=== PATIENT | female | born 1960 | race Caucasian/White ===

== ENCOUNTER 2019-05-24 10:45 | Outpatient (CLI) | payer OTHER, SELFPAY | END 2019-05-24 10:46 | disposition home or self-care (01) | LOC: ANHAUDIO 10:49 | PROVIDERS: PCP Family Medicine; Referring Provider Otolaryngology; Visit Provider Otolaryngology | DX: H90.3 Sensorineural hearing loss, bilateral (principal) | CPT/HCPCS: 92557; 92567 ==

== ENCOUNTER 2020-04-05 10:00 | Outpatient (RCR) | payer MEDICARE, MEDICAID, SELFPAY ==
--- NOTE | 2020-03-06 14:55 | PTOPEVAL ---
PHYSICAL THERAPY EVALUATION Thank you for referring Flor Gallego to [facility].? Flor was evaluated for the dx of low back pain with radiculopathy. The patient is scheduled to be seen for therapy? 2x/week for 4 weeks. Please review, sign, date and return this plan of care GIDEON. I agree with and certify that the following plan of care is medically necessary. Referring Physician Date Attending Provider: Malathi Perez, Referring Provider: Malathi Perez, *PT Outpatient Evaluation Start: 03/06/20 13:39 Freq: Status: Active Protocol: Document 03/06/20 13:40 MLV (Rec: 03/06/20 14:39 MLV [id number]) Therapy Assessment Status Assessment Status Evaluation Evaluation Information Problem Diagnosis low back pain with radiculopathy Onset 01/31/20 Cause fell on concrete steps Additional Evaluation Detail The patient reports falling which caused increased hip pain and new back pain. The patient is not sleeping more than 3 hours a night and having great difficulty into/ out of bed. The patient has increased pain with walking, standing, bending over, sitting for longer period. Prior to fall, patient had occasions of back pain but none recently. The patient is on disability and is sedentary . Subjective Information The patient has used heat for Query Text:As Reported By Patient/ relief, ice causes increased Family pain. Diagnostic Tests X-Rays For This Problem Yes: no fx's MRI For This Problem Yes: DDD,DJD spine Prior Level of Function Home Setting Home Type House,Single Level Environmental Barriers Ramp Living Situation Alone Support Available Local Family Support,Neighbor/ Friend Support [employer] Responsibilities Comment friends and family help with cooking, shopping, foot care/ dressing from knees down. Mobility Assistive Devices (Used Last 3 Lift, Chair,Walker, Rollator Months) Pain Assessment Timing of Pain Assessment Timing of Pain Assessment Assessment Pain Scale Pain Scale Used Numeric (1 - 10) Self Report Pain Assessment Bilateral Hip(s) Reported Pain Level 5 Pain Description Pinching,Pressur
--- NOTE | 2020-03-15 11:51 | PCPTNOTE ---
Patient called & cancelled scheduled appointment this date due to severe swelling at both of her legs.
--- NOTE | 2020-03-28 09:15 | PCPTNOTE ---
Patient called & cancelled scheduled appointment this date due to she had a colonoscopy done yesterday and doesn't feel up to therapy today.
--- NOTE | 2020-04-05 11:18 | PTOPEVAL ---
PHYSICAL THERAPY DISCHARGE SUMMARY Thank you for referring Flor Gallego to [facility].? The patient has been seen for therapy?dx of low back pain 7 visits and has peaked with skilled therapy needs. Physical therapy is discharged at this time. Please review, sign, date and return this plan of care GIDEON. I agree with and certify the following plan of care. Referring Physician Date Attending Provider: Malathi Perez, MD Referring Provider: Malathi Perez, MD *PT Outpatient Discharge Start: 03/06/20 13:39 Freq: Status: discharged Protocol: Document 04/05/20 10:05 MLV (Rec: 04/05/20 10:59 [facility] [id number]) Assessment Status Discharge Evaluation Information Problem Additional Evaluation Detail The patient reports not feeling much better than at eval despite doing her exercises and using heat/ice at home. The patient reports more pain today and feels it is just one of those days . No event has occurred to correlate with today's pain level. Subjective Information Note: the patient's pain level Query Text:As Reported By Patient/ fluctuated throughout all of Family therapy sessions Pain Assessment Timing of Pain Assessment Timing of Pain Assessment Pre-Treatment Pain Scale Pain Scale Used Numeric (1 - 10) Self Report Pain Assessment Bilateral Hip(s) Reported Pain Level 8 Pain Description Throbbing Pain Frequency Chronic Pain Aggravating Factors Walking,Weight Bearing/ Standing Pain Behaviors Guarding,Limping Lower Back Reported Pain Level 5 Pain Frequency Chronic Pain Score Pain Score 8,5: Self Report Interventions Used Interventions Used By Clinicians Electrical Stimulation, Exercise,Heat Pain Relief Interventions Used By Heat,Inactivity/Rest, Patient Medication Cervical and Lumbar ROM Lumbar ROM Reason Not Measured WFL/Left,WFL/Right Lumbar Comments pain on right flank with sidebend to the left; discomfort continues with trunk extension with 50% motion Cervical and Lumbar Muscle Testing Lumbar Strength Upper Abdominal Strength 2+Poor+ Lower Abdominal Strength 2+Poor+ Upper Back Extension 4-Good- Lower Back Extension 4-Good- Muscle Length Testing Muscle Length Te
== END 2020-04-05 13:36 | disposition home or self-care (01) ==
LOC: ANHPT 10:00
PROVIDERS: PCP Family Medicine; Referring Provider Family Medicine; Visit Provider Family Medicine
DX: M54.16 Radiculopathy, lumbar region (principal)
CPT/HCPCS: 97014; 97110; G0283

== ENCOUNTER 2020-05-31 12:56 | Outpatient (CLI) | payer MEDICARE, MEDICAID, SELFPAY ==
--- NOTE | ~2020-05-31 | US_ITS ---
EXAMINATION: US venous doppler LE BI EXAM DATE: 05/31/2020 14:10 INDICATION: R60.0 - Localized edema edema. TECHNIQUE: Multiple grayscale, color flow and Doppler images of the lower extremity venous systems bi laterally were obtained and reviewed. Saphenous venous mapping. The exam was reviewed on 05/31/2020. There is no prior study for comparison. FINDINGS: Study limited from patient's body habitus. Right side: The right common femoral, proximal femoral and profunda veins demonstrate normal color fl ow, respiratory variation, augmentation and compressibility. Compressibility, color flow confirmed w ithin the right popliteal, posterior tibial, peroneal, and greater saphenous veins. Right Standing Venous Mapping: reflux seconds duration; vein size. Greater saphenous origin: 0 seconds; 8.4 mm. Greater saphenous mid thigh:------ 0 seconds; 7.0 mm. Greater saphenous below knee:--- 0 seconds; 2.8 mm. Lesser saphenous proximally:------ 0 seconds; 3.6 mm. Lesser saphenous distally: 0 seconds; 3.3 mm. Left side: The left common femoral, proximal femoral and profunda veins demonstrate normal color flow , respiratory variation, augmentation and compressibility. Compressibility, color flow confirmed wit hin the left popliteal, posterior tibial, peroneal, and greater saphenous veins. Left Standing Venous Mapping: reflux seconds duration; vein size. Greater saphenous origin: 0 seconds; 6.6 mm. Greater saphenous mid thigh:------ 0 seconds; 4.2 mm. Greater saphenous below knee:--- 0 seconds; 2.5 mm. Lesser saphenous proximally:------ 0 seconds; 3.9 mm. Lesser saphenous distally: 0 seconds; 1.8 mm. IMPRESSION: 1. No lower extremity DVT or reflux bilaterally. 2. Mapping as above. Reviewed, dictated and finalized at location [facility]. [employer]
== END 2020-05-31 12:57 | disposition home or self-care (01) ==
LOC: ANHIMG 12:57
PROVIDERS: PCP Family Medicine; Visit Provider Orthopaedic Surgery
DX: R60.0 Localized edema (principal)
CPT/HCPCS: 93970

== ENCOUNTER 2020-06-15 09:30 | Outpatient (RCR) | payer MEDICARE, MEDICAID, SELFPAY ==
[2020-06-09 14:04] VITALS: BP_SYST 120
--- NOTE | 2020-06-09 15:47 | PTOPEVAL ---
Thank you for referring Flor Gallego to [facility].? The patient is scheduled to be seen for therapy? 1-2 x/week for 5 weeks. Please review, sign, date and return this plan of care GIDOEN. I agree with and certify that the following plan of care is medically necessary. Referring Physician Date Attending Provider: Zak Ann MD Referring Provider: Zak Ann MD Physical Therapy Evaluation Diagnosis right shoulder impingement with OA Onset Mar 2020 Cause lifting an object Additional Evaluation Detail she has surgery planned next month for a stomach sleeve and reattachment of small intestine to large intestine. She fell down her steps at home causing injury to her lumbar disc. Subjective Information She hurt her shoulder getting Query Text:As Reported By Patient/ the rollator in/out of the van. She has pinched nerve in her neck since she was 41 that causes radiating symptoms into her right hand. She is unable to reach behind her back with right UE. She is limited with all motions with right UE with a popping. Pain Assessment Right Shoulder(s) Reported Pain Level 7 Pain Description Numbness,Radiating,Tingling Pain Frequency Continuous Lowest Pain Intensity 6 Greatest Pain Intensity 10 Pain Aggravating Factors ADL's,Lifting Pain Behaviors Anxious,Restless Pain Score Upper Extremity Range of Motion Scapular/ Shoulder Range of Motion Left Shoulder Flexion - Active 142 Shoulder Extension - Active 50 Shoulder Abduction - Active 160 Shoulder Medial Rotation - Active L1 Query Text:Reach Behind the Back Right Scapular: Retraction Hypomobile Scapular: Protraction Hypomobile Scapular Downward Rotation Hypomobile Scapular Upward Rotation Hypomobile Shoulder Flexion - Active 102 Shoulder Flexion - Passive 160 Shoulder Extension - Active 43 Shoulder Abduction - Active 68 Shoulder Abduction - Passive 120 Shoulder Medial Rotation - Active L2 Query Text:Reach Behind the Back Scapular/Shoulder Range of Motion Muscle Weakness,Pain,Soft Limitations Tissue Restriction Upper Extremity Muscle Strength Testing Scapular/Shoulder Left Scapular Retraction - Rhomboid 3- Fair - Scapular Retraction - Middle Trapezius 3- Fair - Shoulder Flexion Streng
--- NOTE | 2020-07-19 08:14 | PCPTNOTE ---
Admitting Provider: Attending Provider: Zak Ann MD Patient:Flor Gallego Date of :1960 Discharge Summary Patient has not returned for any further treatments since 06/15/2020, therefore she will be discharged at this time. Patient?s initial visit was on 06/09/2020 14:00 and she had a total of 2 visits. She did not return for additional therapy due to having surgery. The goals have been not met at this time. Thank you for referring this patient to [facility]. Please review, sign, date and return this discharge summary GIDEON. I have been updated about the patient's current status and I agree with discharge from the above service at this time. Referring Physician Date
== END 2020-07-19 14:22 | disposition home or self-care (01) ==
LOC: ANHPT 09:30
PROVIDERS: PCP Family Medicine; Referring Provider Orthopaedic Surgery; Visit Provider Orthopaedic Surgery
DX: M19.011 Primary osteoarthritis, right shoulder (principal); M75.41 Impingement syndrome of right shoulder
CPT/HCPCS: 97110; 97162

== ENCOUNTER 2020-07-04 11:09 | Outpatient (CLI) | payer MEDICARE, MEDICAID, SELFPAY ==
[2020-07-04 11:26] LABS: Basophils Percent Auto 0.4 % (0.2-1.2); Eosinophils Absolute Auto 0.2 K/mm3 (0-0.3); Eosinophils Percent Auto 1.9 % (0-4.4); Hematocrit 44.8 % (37.0-47.0); Hemoglobin 13.7 g/dL (12.0-15.0); Immature Granulocyte Absolute 0.04 K/mm3 (0.00-0.031); Immature Granulocyte Percent A 0.4 % (0-0.5); Lymphocytes Percent Auto 16.8 % (18.3-44.2); Mean Corpuscular HGB Conc 30.6 g/dl (32-36); Mean Corpuscular Hemoglobin 27.1 pg (26-34); Mean Corpuscular Volume 88.5 fl (80-100); Mean Platelet Volume 9.8 fl (7.4-10.4); Monocytes Absolute Auto 0.7 K/mm3 (0.1-0.6); Monocytes Percent Auto 7.7 % (2.6-8.5); Neutrophils Absolute Auto 6.9 K/mm3 (1.3-6.7); Neutrophils Percent Auto 72.8 % (45.5-73.1); Platelet Count Result 353 k/mm3 (150-375); Red Blood Count 5.06 M/mm3 (4.2-5.4); Red Cell Distribution Width 14.2 % (11.5-14.5); White Blood Count 9.5 K/mm3 (4.5-10.0)
== END 2020-07-04 11:10 | disposition home or self-care (01) ==
PROVIDERS: PCP Family Medicine; Visit Provider Internal Medicine Hematology & Oncology
DX: D75.1 Secondary polycythemia (principal)
CPT/HCPCS: 36415; 85025

== ENCOUNTER 2020-09-19 08:33 | Outpatient (CLI) | payer MEDICARE, MEDICAID, SELFPAY ==
--- NOTE | 2020-09-26 15:06 | WPDHOMESLEEP ---
Sleep Study - Home Unattended Date of Study: 09/19/20 Ordering Provider: Malathi Perez, Interpreting Provider: Ana Delarosa MD Home Sleep Study Type: Apnea Link Air Height: 1.63 m Weight: 130.635 kg Body Mass Index: 49.4 Neck Circumference (inches): 13.5 [place]: 16 Reason for Sleep Study hypersomnolence Sleep History Flor Gallego is a 60 year old female with obstructive sleep apnea syndrome since 2011 currently does not have a functioning device. She has multiple medical comorbidities including hypertension, fibromyalgia, COPD. She recently had gastric surgery for weight loss. She has lost over 90 lb. She frequently snores loudly enough that others complain about. She does constantly snore. She frequently awakens at night with heartburn, belching, and coughing. She frequently awakens at night short of breath. She constantly has trouble sleeping if she has a cold. She occasionally gasps for breath at night. She frequently has breathing problems at night observed by others. She occasionally sweats excessively at night. She frequently notices her heart pounding irregularly at night. She constantly falls asleep during the day, occasionally involuntarily, however never falls asleep while driving. She does not have loss of muscle tone with strong emotion. She previously took naps at lunch when she was working. She rarely feels paralyzed on waking or falling asleep. She does not have vivid dreamlike scenes upon awakening or falling asleep. She rarely feels afraid to go to sleep. She currently sleeps in a lift chair due to pain in her hip and back. She takes naps in the afternoon or evening. A short nap is not refreshing. She feels better in the afternoon compared other times of day. Normal bedtime between 10:00 p.m. and 12 midnight falling asleep within 15 minutes but sometimes taking up to hours to fall asleep. She wakes multiple times anywhere from 3-8 times during the night. During this awakening should get a drink of water and try to fall asleep again. She wakes the morning between 5:00 a.m. and 9:00 a.m.. She estimates getting between 5 hours and 10 hours of sleep most nights. Habits: Quit tobacco in 2008. Caffeine 3 glasses of tea per day. No alcohol. No marijuana since June 23, 2020, weight loss surgery PMFSH Past Medical History Medical History (Updated 09/26/20 @ 16:01 by Ana Delarosa MD) Abdominal pain Arthritis Arthritis of shoulder region, right Asthma Bilateral lower extremity edema Bleeding nose Cellulitis Chest tightness Chronic headaches Clotting disorder Congestion of nasal sinus COPD (chronic obstructive pulmonary disease) Coughing DDD (degenerative disc disease) Depression Diarrhea Dizziness Ear problems Ectopic kidney Emphysema of lung Enlarged lymph nodes Excessive bleeding Excessive hunger Excessive thirst Female stress incontinence Fibromyalgia GERD (gastroesophageal reflux disease) Hair loss Tea's thyroiditis Hearing loss Hernia Hoarseness Hot thyroid nodule Hyperlipidemia Hypertension Hyperthyroidism Hypokalemia Iron metabolism disorder Laryngopharyngeal reflux Light headedness Lymphadenopathy Memory loss Migraine with aura Multinodular goiter Nerve damage cervical spine Obstructive sleep apnea Ocular migraine WILFRED (obstructive sleep apnea) Osteoarthritis of knees, bilateral Osteoporosis Pachyderma of larynx Pneumonia Psoriasis Restless legs syndrome (RLS) Rheumatoid arthritis Sleep stage dysfunction SOB (shortness of breath) Spondylosis of lumbar spine Subacromial impingement of right shoulder Surgical perforation of duodenum Thyrotoxicosis Urinary frequency Vaginal discharge Vaginitis Venous reflux Vision changes Vitamin D deficiency Wears glasses Weight gain Wheezing Surgical History Surgical History H/O colonoscopy with polypectomy 03/24/02 History of cholecystectom
[2020-09-26 16:18] VITALS: BMI 49.4
== END 2020-09-20 09:58 | disposition home or self-care (01) ==
LOC: ANHCSM 08:34
PROVIDERS: PCP Family Medicine; Visit Provider Family Medicine
DX: G47.30 Sleep apnea, unspecified (principal)
CPT/HCPCS: 95806

== ENCOUNTER 2021-01-01 07:54 | Outpatient (CLI) | payer MEDICARE, MEDICAID, SELFPAY ==
--- NOTE | 2021-01-01 13:42 | P.PCNPFT_ITS ---
PFT Procedure Performed PFT Procedure Performed Spirometry with Pre/Post Bronchodilator Plethysmography (Lung Vol) Diffusing Cap (DLCO) Flow Vol Loop PFT Interpretation Lung volumes were measured with the body plethysmography method. The lung volumes are unremarkable. Spirometry showed normal forced vital capacity, mildl y diminished FEV1 and a normal FEV1 to FVC ratio of 74%. Following administration of a bronchodilator, there was significant increase in the FVC and borderline increase in the FEV1. The nonspecific pattern of the pre- bronchodilator spirometry in conjunction his with the significant response to bronchodilators may suggest underlying obstructive airway disease. Clinical correlation advised. The flow volume lobe is unremarkable. Impression: Nonspecific pattern. Significance response to bronchodilators may suggest possible airway disease.
== END 2021-01-01 07:55 | disposition home or self-care (01) ==
PROVIDERS: PCP Family Medicine; Visit Provider Internal Medicine Critical Care Medicine
DX: R06.02 Shortness of breath (principal)
CPT/HCPCS: 94060; 94726; 94729

== ENCOUNTER 2021-07-01 15:49 | Emergency (ER) | payer MEDICARE, MEDICAID, SELFPAY ==
[2021-07-01 16:10] VITALS: BP 127/62; PULSE 87; RESP 16; TEMP 36.8; O2SAT 99
--- NOTE | 2021-07-01 16:46 | ED.GENADULT ---
HPI - General Adult General Chief complaint: Dental/Oral Stated complaint: thrush Source: patient Mode of arrival: ambulatory Limitations: no limitations History of Present Illness HPI narrative: Patient presents for evaluation of pain in her mouth and throat. Symptom onset last week. She states she feels like her mouth is on fire. Symptoms have worsened over the weekend. She saw her primary provider who told her she may have the beginning stages of thrush. She did not get a prescription for nystatin at that time. Patient has had thrush in past and this feels similar. She does use inhalers and forgets to rinse her mouth out. In the past nystatin has been effective. She has some discomfort in her right ear. No respiratory symptoms. No additional complaints or concerns. Related Data Home Medications Medication Instructions Recorded Confirmed albuterol sulfate 90 mcg/actuation 1 inh INHALATION Q4H 05/16/20 07/01/21 aerosol inhaler B-complex with vitamin C 1 tablet PO DAILY 09/26/20 07/01/21 calcium citrate 200 mg (950 mg) 200 mg PO DAILY 09/26/20 07/01/21 tablet duloxetine 60 mg capsule,delayed 60 mg PO ONCE cap 06/28/21 07/01/21 release famotidine 40 mg tablet 40 mg PO BID tablet 06/28/21 07/01/21 losartan 25 mg tablet 25 mg PO DAILY 06/28/21 07/01/21 pantoprazole 40 mg tablet,delayed 40 mg PO BID tablet 06/28/21 07/01/21 release ergocalciferol (vitamin D2) 07/01/21 naloxone INTRANASAL 07/01/21 umeclidinium-vilanterol [Anoro INHALATION 07/01/21 Ellipta] Allergies Allergy/AdvReac Type Severity Reaction Status Date / Time No Known Allergies Allergy Verified 07/01/21 16:15 Review of Systems Review of Systems: CONSTITUTIONAL: Denies fever, chills, or sweats. EYES: Denies visual changes, redness, or discharge. ENT: Reports pain in mouth and throat CARDIOVASCULAR: Denies chest pain, palpitations, or edema. RESPIRATORY: Denies cough or dyspnea. GASTROINTESTINAL: Denies abdominal pain, nausea, vomiting, or diarrhea. GENITOURINARY: Denies dysuria or hematuria. SKIN: Denies rash or itching. MUSCULOSKELETAL: Denies back pain, joint pain, or myalgia. NEUROLOGIC: Denies headache, numbness, dizziness, or weakness. PSYCHIATRIC: Denies anxiety or depression. [facility], [facility] Past Medical History Medical History Arthritis Arthritis of shoulder region, right Asthma Bilateral lower extremity edema Chronic headaches DDD (degenerative disc disease) Depression Ectopic kidney Female stress incontinence Fibromyalgia Hair loss Tea's thyroiditis Hearing loss Heart murmur History of tobacco abuse Hot thyroid nodule Hyperlipidemia Hypertension Hypokalemia Nerve damage cervical spine Obstructive sleep apnea Ocular migraine Osteoarthritis of knees, bilateral Osteoporosis Psoriasis RLS (restless legs syndrome) Spondylosis of lumbar spine Subacromial impingement of right shoulder Venous reflux Vitamin D deficiency Wears glasses Surgical History Surgical History H/O colonoscopy with polypectomy 03/24/02 History of cholecystectomy History of dilation and curettage (12/07/09) hscope d&c/polypectomy x3 others History of ear, nose, and throat (ENT) surgery (~2013) sinus cautery History of endometrial ablation (01/04/10) hscope novasure ablation History of foot surgery Hammer Toe 2002 History of fusion of cervical spine History of hysterectomy, supracervical (07/25/10) History of knee surgery PCL reconstruction 01/12/15 Dr. Sommer History of right hip replacement History of sleeve gastrectomy History of tubal ligation Family History Family History Father Acute myocardial infarction Myocardial infarction Hypertension Grandparent Diabetes mellitus Carcinoma of colon Mother Lung cancer COPD (chronic obstructive p
== END 2021-07-01 16:55 | disposition home or self-care (01) ==
PROVIDERS: Emergency Provider Nurse Practitioner; PCP Family Medicine
DX: B37.0 Candidal stomatitis (principal); Z87.891 Personal history of nicotine dependence; J45.909 Unspecified asthma, uncomplicated; M79.7 Fibromyalgia; E06.3 Autoimmune thyroiditis; R01.1 Cardiac murmur, unspecified; E78.5 Hyperlipidemia, unspecified; I10 Essential (primary) hypertension; G47.33 Obstructive sleep apnea (adult) (pediatric); M81.0 Age-related osteoporosis without current pathological fracture; G25.81 Restless legs syndrome; M47.816 Spondylosis without myelopathy or radiculopathy, lumbar region; M17.0 Bilateral primary osteoarthritis of knee; M19.011 Primary osteoarthritis, right shoulder; Z96.641 Presence of right artificial hip joint; Z98.84 Bariatric surgery status
CPT/HCPCS: 99213; G0463

== ENCOUNTER 2021-09-03 12:58 | Outpatient (CLI) | payer MEDICARE, MEDICAID, SELFPAY | END 2021-09-03 12:59 | disposition home or self-care (01) | LOC: ANHAUDIO 12:59 | PROVIDERS: PCP Family Medicine; Visit Provider Otolaryngology | DX: H91.93 Unspecified hearing loss, bilateral (principal) | CPT/HCPCS: 92557; 92567 ==

== ENCOUNTER 2021-09-20 15:41 | Emergency (ER) | payer MEDICARE, MEDICAID, SELFPAY ==
--- NOTE | ~2021-09-20 | XR_ITS ---
[id number] DATE: 09/20/2021 16:01 INDICATION: Struck left ribs against concrete today. Left rib pain. History of COPD. TECHNIQUE: PA chest. 3 views of the left ribs. COMPARISON: 09/16/2017 portable AP chest FINDINGS: Normal heart size. No hilar or mediastinal enlargement. No pulmonary infiltrate or consolidation, ple ural effusion or pulmonary vascular congestion or pneumothorax. Status post lower anterior cervical spinal surgical fusion. There is mild levoscoliosis of the thorac ic and lumbar spine. Osteopenia. Status post cholecystectomy. IMPRESSION: No active cardiopulmonary disease Reviewed, dictated and finalized at Location [facility]. Reviewed, dictated and finalized at location [facility].
[2021-09-20 15:48] VITALS: BP 144/80; PULSE 82; RESP 16; TEMP 37.4; O2SAT 100
--- NOTE | 2021-09-20 15:51 | ED.GENADULT ---
HPI - General Adult General Stated complaint: pt requested rib xray left side Time Seen by Provider: 09/20/21 16:10 Source: patient and RN notes reviewed Mode of arrival: ambulatory Limitations: no limitations History of Present Illness HPI narrative: 61-year-old female presents with concern for left lower anterior rib pain. Reports today while getting out of a pool she was pulling herself up and she hit the ribs on the pool wall. She reports she felt and heard a popping/cracking sound and since then has had pain in that area with certain movements, deep breathing or coughing. She reports she takes hydrocodone on a regular basis for chronic pain. She denies other intervention. She denies shortness of breath, bruising, open skin. Reports rib tenderness MD complaint: Rib pain Related Data Home Medications Medication Instructions Recorded Confirmed B-complex with vitamin C 1 tablet PO DAILY 09/26/20 09/07/21 calcium citrate 200 mg (950 mg) 200 mg PO DAILY 09/26/20 09/07/21 tablet famotidine 40 mg tablet 40 mg PO BID 06/28/21 09/07/21 losartan 25 mg tablet 25 mg PO DAILY 06/28/21 09/07/21 nystatin 100,000 unit/mL oral 5 ml buccal TID 07/06/21 09/07/21 suspension cyclobenzaprine 10 mg tablet 10 mg PO .qd 09/07/21 09/07/21 gabapentin 100 mg capsule 300 mg PO BID 09/07/21 09/07/21 doxepin 10 mg capsule 10 mg PO QHS 09/20/21 omeprazole 40 mg capsule,delayed 40 mg PO DAILY 09/20/21 release Allergies Allergy/AdvReac Type Severity Reaction Status Date / Time No Known Allergies Allergy Verified 09/20/21 12:53 Review of Systems Review of Systems: CONSTITUTIONAL: Denies malaise, chills, sweats, or fever. CARDIOVASCULAR: Denies chest pain, palpitations, or edema. RESPIRATORY: Denies cough or dyspnea. GASTROINTESTINAL: Denies abdominal pain, nausea, vomiting SKIN: Denies bruising, redness, laceration, abrasion MUSCULOSKELETAL: Reports left anterior lower rib pain NEUROLOGIC: Denies numbness, weakness All systems reviewed & are unremarkable except as noted in HPI and below PMFSH Past Medical History Medical History Arthritis Arthritis of shoulder region, right Asthma Bilateral lower extremity edema Chronic headaches DDD (degenerative disc disease) Depression Ectopic kidney Female stress incontinence Fibromyalgia Hair loss Tea's thyroiditis Hearing loss Heart murmur History of tobacco abuse Hot thyroid nodule Hyperlipidemia Hypertension Hypokalemia Nerve damage cervical spine Obstructive sleep apnea Ocular migraine Osteoarthritis of knees, bilateral Osteoporosis Psoriasis RLS (restless legs syndrome) Screening mammogram, encounter for Spondylosis of lumbar spine Subacromial impingement of right shoulder Venous reflux Vitamin D deficiency Wears glasses Surgical History Surgical History H/O colonoscopy with polypectomy 03/24/02 History of cholecystectomy History of dilation and curettage (12/07/09) hscope d&c/polypectomy x3 others History of ear, nose, and throat (ENT) surgery (~2013) sinus cautery History of endometrial ablation (01/04/10) hscope novasure ablation History of foot surgery Hammer Toe 2002 History of fusion of cervical spine History of hysterectomy, supracervical (07/25/10) History of knee surgery PCL reconstruction 01/12/15 Dr. Sommer History of right hip replacement (01/03/21) History of sleeve gastrectomy (06/23/20) History of tubal ligation Family History Family History Father Acute myocardial infarction Myocardial infarction Hypertension Grandparent Diabetes mellitus Carcinoma of colon Mother Lung cancer COPD (chronic obstructive pulmonary disease) Sibling Lung cancer Other Family history of cardiovascular disease Social History Social History (Reviewed 09/20/21 @ 12:5
== END 2021-09-20 16:43 | disposition home or self-care (01) ==
PROVIDERS: Emergency Provider Nurse Practitioner; PCP Family Medicine
DX: S20.212A Contusion of left front wall of thorax, initial encounter (principal); W22.8XXA Striking against or struck by other objects, initial encounter; J45.909 Unspecified asthma, uncomplicated; M79.7 Fibromyalgia; E06.3 Autoimmune thyroiditis; R01.1 Cardiac murmur, unspecified; E78.5 Hyperlipidemia, unspecified; I10 Essential (primary) hypertension; G47.33 Obstructive sleep apnea (adult) (pediatric); M17.0 Bilateral primary osteoarthritis of knee; M81.0 Age-related osteoporosis without current pathological fracture; G25.81 Restless legs syndrome; M47.816 Spondylosis without myelopathy or radiculopathy, lumbar region; Z98.84 Bariatric surgery status; Z87.891 Personal history of nicotine dependence
CPT/HCPCS: 71101; 99213; G0463

== ENCOUNTER 2021-10-08 15:10 | Emergency (ER) | payer MEDICARE, MEDICAID, SELFPAY ==
[2021-10-08 15:17] VITALS: BP 135/61; PULSE 70; RESP 16; TEMP 36.5; O2SAT 98
--- NOTE | 2021-10-08 18:20 | ED.SKABFB ---
HPI - Skin/Abscess/Foreign Bdy General Chief complaint: Skin/Abscess/Foreign Body Stated complaint: rash to chest, arms and legs - Friday Time Seen by Provider: 10/08/21 17:14 Source: patient Mode of arrival: ambulatory Limitations: no limitations History of Present Illness HPI narrative: This is a 61-year-old female that presents to the emergency department for rash present over the last 2 days. Reports she was outside cleaning up some brush before it started. The rash is itchy. She has been taking oral Benadryl with little relief. Denies fevers. Related Data Home Medications Medication Instructions Recorded Confirmed B-complex with vitamin C 1 tablet PO DAILY 09/26/20 09/20/21 calcium citrate 200 mg (950 mg) 200 mg PO DAILY 09/26/20 09/20/21 tablet famotidine 40 mg tablet 40 mg PO BID 06/28/21 09/20/21 losartan 25 mg tablet 25 mg PO DAILY 06/28/21 09/20/21 nystatin 100,000 unit/mL oral 5 ml buccal TID 07/06/21 09/20/21 suspension cyclobenzaprine 10 mg tablet 10 mg PO .qd 09/07/21 09/20/21 gabapentin 100 mg capsule 300 mg PO BID 09/07/21 09/20/21 doxepin 10 mg capsule 10 mg PO QHS 09/20/21 09/20/21 omeprazole 40 mg capsule,delayed 40 mg PO DAILY 09/20/21 09/20/21 release Allergies Allergy/AdvReac Type Severity Reaction Status Date / Time poison sumac extract Allergy Severe Rash Unverified 10/08/21 16:57 Review of Systems Review of Systems: CONSTITUTIONAL: Denies fever SKIN: Reports rash and itching. All systems reviewed & are unremarkable except as noted in HPI and below PMFSH Past Medical History Medical History Arthritis Arthritis of shoulder region, right Asthma Bilateral lower extremity edema Chronic headaches DDD (degenerative disc disease) Depression Ectopic kidney Female stress incontinence Fibromyalgia Hair loss Tea's thyroiditis Hearing loss Heart murmur History of tobacco abuse Hot thyroid nodule Hyperlipidemia Hypertension Hypokalemia Nerve damage cervical spine Obstructive sleep apnea Ocular migraine Osteoarthritis of knees, bilateral Osteoporosis Psoriasis RLS (restless legs syndrome) Screening mammogram, encounter for Spondylosis of lumbar spine Subacromial impingement of right shoulder Venous reflux Vitamin D deficiency Wears glasses Surgical History Surgical History H/O colonoscopy with polypectomy 03/24/02 History of cholecystectomy History of dilation and curettage (12/07/09) hscope d&c/polypectomy x3 others History of ear, nose, and throat (ENT) surgery (~2013) sinus cautery History of endometrial ablation (01/04/10) hscope novasure ablation History of foot surgery Hammer Toe 2002 History of fusion of cervical spine History of hysterectomy, supracervical (07/25/10) History of knee surgery PCL reconstruction 01/12/15 Dr. Sommer History of right hip replacement (01/03/21) History of sleeve gastrectomy (06/23/20) History of tubal ligation Family History Family History Father Acute myocardial infarction Myocardial infarction Hypertension Grandparent Diabetes mellitus Carcinoma of colon Mother Lung cancer COPD (chronic obstructive pulmonary disease) Sibling Lung cancer Other Family history of cardiovascular disease Social History Social History Smoking packs per day: 3 Smoking cigarettes per day: 60.0 Years smoked: 37 Smoking pack-years: 111.00 Smoking status: Former smoker Smoking end date: 06/22/08 Alcohol intake: never Substance use: current Additional living arrangements comments: Additional occupation/education comments: disabled Gender identity (if verbalized by the patient): Female Sexual Orientation (if Verbalized by the Patient): Straight or Heterosexual
== END 2021-10-08 18:48 | disposition home or self-care (01) ==
PROVIDERS: Emergency Provider Emergency Medicine; PCP Family Medicine
DX: L25.5 Unspecified contact dermatitis due to plants, except food (principal); J45.909 Unspecified asthma, uncomplicated; E06.3 Autoimmune thyroiditis; E78.5 Hyperlipidemia, unspecified; I10 Essential (primary) hypertension; M79.7 Fibromyalgia; M17.0 Bilateral primary osteoarthritis of knee; M19.011 Primary osteoarthritis, right shoulder; G47.33 Obstructive sleep apnea (adult) (pediatric); G25.81 Restless legs syndrome; E55.9 Vitamin D deficiency, unspecified; Z98.1 Arthrodesis status; Z96.641 Presence of right artificial hip joint; Z98.84 Bariatric surgery status; Z87.891 Personal history of nicotine dependence
CPT/HCPCS: 99283

== ENCOUNTER 2022-01-17 07:37 | Outpatient (CLI) | payer MEDICARE, MEDICAID, SELFPAY ==
--- NOTE | 2022-02-10 19:43 | WPDSLEEPSTUD ---
Sleep Study Date of Study: 01/17/22 Ordering Provider: VERONA Bradley Interpreting Physician: Buffy Gant DO Sleep Study Type: Polysomnogram Height: 1.63 m Weight: 63.503 kg Body Mass Index: 24.0 Neck Circumference (inches): 12.5 Blair: 9 Reason for Sleep Study Known WILFRED on CPAP. Had bariatric surgery and lost over 100 pounds. Retesting to see if sleep apnea resolved with weight loss. Sleep History The patient is a 61-year-old female with sleep apnea, restless legs syndrome, hypertension, depression, GERD, asthma, COPD, fibromyalgia, Tea's thyroiditis, hyperlipidemia, osteoporosis, psoriasis and history of tobacco use that had a sleep study ordered for re-evaluation of sleep apnea. The patient rarely awakens from sleep short of breath. She occasionally awakens at night with heartburn, belching or cough. She occasionally snores loudly enough that others complain. She constantly has trouble sleeping when she has a cold. She rarely wakes up gasping for air throughout the night. She rarely has breathing problems at night observed by herself or others. He occasionally sweats excessively at night. She rarely has heart palpitations or irregular heartbeats during the night. She rarely falls asleep during the day and never while driving. She denies sleep paralysis, cataplexy and hypnagogic / hypnopompic hallucinations. She denies having trouble at school or work due to sleepiness. She denies feeling afraid going to sleep. She denies having nightmares and denies remembering her dreams. She occasionally has thoughts racing through her mind. She occasionally feels sad, depressed or anxious. She constantly has muscular tension. She constantly notices parts of her body jerk. She constantly kicks during the night. She constantly has crawling and aching feelings in her legs as well as leg pain during the night. She constantly grinds her teeth during sleep and constantly awakens with morning jaw pain. She is constantly bothered by pain during the day and constantly awakened by pain during the night. She constantly wakes up feeling stiff in the morning. She constantly wakes up with sore or achy muscles. She constantly wakes up with pain in the neck, spine or other joints. She goes to bed at 10:00 p.m. on both weekdays and weekends. It takes her 20 minutes to fall asleep. She wakes up several times throughout the night to adjust positions. She is able to fall back asleep within 10-20 minutes. She wakes up at 6:15 a.m. on weekdays and at 9:00 a.m. on the weekends. She typically gets 7 hours of sleep per night. She does not stay in bed after waking up in the morning. She currently lives alone. She does not consume any caffeinated beverages within 2 hours of bedtime. She does not engage in physical exercise before bedtime. She will watch television before falling asleep. She will take naps in the afternoon or the evening but they are not refreshing. She drinks 1 caffeinated soda per day. She quit smoking cigarettes in 2008. She denies alcohol and recreational drug use. [facility] Past Medical History Medical History Arthritis Arthritis of shoulder region, right Asthma Bilateral lower extremity edema Chronic headaches DDD (degenerative disc disease) Depression Ectopic kidney Female stress incontinence Fibromyalgia Gallbladder disorder Hair loss Tea's thyroiditis Hearing loss Heart murmur History of tobacco abuse Hot thyroid nodule Hyperlipidemia Hypertension Hypokalemia Nerve damage cervical spine Obstructive sleep apnea Ocular migraine Osteoarthritis of knees, bilateral Osteoporosis Psoriasis RLS (restless legs syndrome) Screening mammogram, encounter for Spondylosis of lumbar spine Subacromial impingement of right shoulder Venous reflux Vitamin D deficiency Wears glasses Surgical History Surgical History (Reviewed 02/10/22 @ 19:54
[2022-02-10 19:49] VITALS: BMI 24.0
== END 2022-01-18 06:54 | disposition home or self-care (01) ==
PROVIDERS: PCP Family Medicine; Visit Provider Physician Assistant
DX: G47.33 Obstructive sleep apnea (adult) (pediatric) (principal); R63.4 Abnormal weight loss; G25.81 Restless legs syndrome
CPT/HCPCS: 95810

== ENCOUNTER 2022-02-19 14:09 | Outpatient (CLI) | payer MEDICARE, MEDICAID, SELFPAY ==
--- NOTE | ~2022-02-19 | CT_ITS ---
EXAMINATION: CT lung screening DATE: 02/19/2022 14:40 INDICATION: Lung cancer screening TECHNIQUE: Computed tomography (CT) of the chest was performed without intravenous contrast. The dose -length product was 58.65 mGy-cm. Automated exposure control and iterative reconstruction technique w ere employed. COMPARISON: None FINDINGS: There is atherosclerosis. Small pericardial effusion. No significant pleural effusion. Ther e are surgical changes of the stomach. There are cholecystectomy clips. Moderate thoracic spondylosis . No endobronchial lesions. No pneumothorax. No focal airspace consolidation. There is a 3 mm right upper lobe nodule, image 39. There is emphysem a. There are smaller upper lobe nodules bilaterally measuring 2 mm or less. There is a 3 mm groundgla ss nodule along the right major fissure. IMPRESSION: 1. Lung-RADS category 2: Benign appearance or behavior. Continue annual screening with noncontrast lo w-dose chest CT in 12 months. Reviewed, dictated and finalized at location A. [facility]APER IMPRESSION: 1. Lung-RADS category 2: Benign appearance or behavior. Continue annual screeni ng with noncontrast low-dose chest CT in 12 months.
== END 2022-02-19 14:10 | disposition home or self-care (01) ==
PROVIDERS: PCP Family Medicine; Visit Provider Physician Assistant
DX: Z12.2 Encounter for screening for malignant neoplasm of respiratory organs (principal); Z87.891 Personal history of nicotine dependence
CPT/HCPCS: 71271

== ENCOUNTER 2022-03-27 13:30 | Outpatient (RCR) | payer MEDICARE, MEDICAID, SELFPAY ==
--- NOTE | 2022-02-27 11:10 | OTOPEVAL1 ---
Assessment and note entered by Susana Hightower OTR/Nura Evaluation Information Assessment Status Evaluation Diagnosis R carpal tunnel release Subjective Information Patient presents to outpatient OT s/p R carpal tunnel release on 12/27/2021 (8 weeks, 5 days ago). Patient reports has some discomfort with wrist movement, griping, listing, decreased strength and hyper sensitivity over scar. Patient reports goal with therapy is to get R hand stronger. Reported Pain Level Pain Score 0: Self Report Assessment OT Clinical Summary Flor is a 61 year old female presenting to Outpatient OT following a R UE carpal tunnel release on 12/27/2021. Patient reports since surgery has experienced decreased strength in R hand, increased hypersensitivity over surgical scar. Patient would benefit from skilled OT for HEP instruction, UE exercises/strengthening, manual therapy, modalities in order to optimize functional use of R UE. Plan of Care Interventions Therapeutic Exercise,Manual Therapy,Therapeutic Activities,Hot Pack/Cold Pack,Ultrasound,Paraffin OT Services Indicated Yes Treatment Frequency and 1x/wk, 4 weeks Duration These treatments will address the objective and functional deficits as defined above. The patient will be advanced safely and appropriately in order for the patient to progress towards his/her prior level of function. Additional exercises will be introduced and as well as a comprehensive home exercise program upon discharge, if needed, ?to ensure carryover of functional gains achieved in the clinic. This treatment plan has been reviewed and agreement upon by the patient.
--- NOTE | 2022-03-27 13:54 | OTOPDC ---
Assessment and note entered by KAREN Hull/Nura Evaluation Information Assessment Status Discharge Diagnosis R carpal tunnel release Subjective Information Patient presents to outpatient OT s/p R carpal tunnel release on 12/27/2021. Patient reports since beginning therapy, hand and wrist feel stronger, is able to complete functional and daily tasks. Patient reports it is easier to sumo wrestler items with R hand. Patient reports surgical scar is less sensitive. Reported Pain Level Pain Score 0: Self Report Assessment OT Clinical Summary Flor is a 61 year old female presenting to Outpatient OT following a R UE carpal tunnel release on 12/27/2021. Patient reports has improved strength and functional use of R UE and decreased sensitivity over surgical scar. Patient is pleased with progress. Patient is to be discharged from skilled OT at this time with independence with all HEP materials. Plan of Care OT Services Indicated No
== END 2022-03-27 16:11 | disposition home or self-care (01) ==
LOC: ANHGOSHOT 13:30
PROVIDERS: PCP Family Medicine
DX: Z48.89 Encounter for other specified surgical aftercare (principal); Z98.890 Other specified postprocedural states
CPT/HCPCS: 97018; 97035; 97110; 97140; 97165

== ENCOUNTER 2023-02-21 09:50 | Outpatient (CLI) | payer MEDICARE, MEDICAID, SELFPAY ==
--- NOTE | ~2023-02-21 | CT_ITS ---
EXAMINATION: CT lung screening DATE: 02/21/2023 10:11 INDICATION: Personal history of nicotine dependence. TECHNIQUE: Computed tomography (CT) of the chest was performed without intravenous contrast. The dose -length product was 55.88 mGy-cm. COMPARISON: CT dated 02/19/2022 FINDINGS: There is thoracic lymphadenopathy. Small pericardial effusion. No significant pleural effus ion. There are changes of gastric bypass surgery. There is emphysema. There are a few small scattered nodules of the lungs, measuring 3 mm or less. No endobronchial lesions. No pneumothorax. Mildly elev ated right diaphragm. Right kidney is not identified in the right upper abdomen. IMPRESSION: 1. Lung-RADS category 2: Benign appearance or behavior. Continue annual screening with noncontrast lo w-dose chest CT in 12 months. Reviewed, dictated and finalized at location [facility]. [facility]ALKER IMPRESSION: 1. Lung-RADS category 2: Benign appearance or behavior. Continue annual screeni ng with noncontrast low-dose chest CT in 12 months.
== END 2023-02-21 09:51 | disposition home or self-care (01) ==
PROVIDERS: PCP Family Medicine; Visit Provider Internal Medicine Critical Care Medicine
DX: Z12.2 Encounter for screening for malignant neoplasm of respiratory organs (principal); Z87.891 Personal history of nicotine dependence
CPT/HCPCS: 71271

== ENCOUNTER 2024-03-09 14:12 | Outpatient (CLI) | payer MEDICARE, MEDICAID, SELFPAY ==
--- NOTE | ~2024-03-09 | CT_ITS ---
CT Scan of the Chest without Contrast: Clinical Indication: Lung cancer screening, nicotine dependence Technique: Contiguous sections were acquired throughout the chest without intravenous contrast. Dose reduction technique was used on this scan by utilizing automated exposure control and iterative recon struction technique. The dose-length product (DLP) was 73.48 mGy-cm. COMPARISON: 02/21/2023 Findings: There is no evidence of any significant mediastinal, hilar or axillary lymphadenopathy. The mediastin al soft tissues appear normal. There is no evidence of pleural or pericardial effusion. Several tiny pulmonary nodules measure up to 2 mm. Images through the upper abdomen reveal no abnormalities. Impression: Lung RADS 2: Benign appearance. 12 month follow-up screening CT advised. Reviewed, dictated and finalized at [facility]. ACY ATTORNEY Impression: Lung RADS 2: Benign appearance. 12 month follow-up screening CT advised.
== END 2024-03-09 14:13 | disposition home or self-care (01) ==
PROVIDERS: PCP Hospitalist; Visit Provider Internal Medicine Critical Care Medicine
DX: Z12.2 Encounter for screening for malignant neoplasm of respiratory organs (principal); Z87.891 Personal history of nicotine dependence
CPT/HCPCS: 71271

== ENCOUNTER 2024-05-08 12:56 | Emergency (ER) | payer MEDICARE, MEDICAID, SELFPAY ==
--- NOTE | ~2024-05-08 | XR_ITS ---
HISTORY: 2nd digit pain COMPARISON: none TECHNIQUE: 3 views of the left foot were performed FINDINGS: Screw fixation of the second and third toes at the level of the proximal interphalangeal joint space. Periprosthetic fracture is suspected along the lateral margin of the distal portion of the proximal p halanx of the second toe. No additional fractures are appreciated. The base of the fifth metatarsal is intact. No calcaneal spur is noted. No significant soft tissue swelling is present. IMPRESSION: Periprosthetic fracture along the lateral margin of the distal portion of the proximal p halanx of the second toe Reviewed, dictated and finalized at location A. [facility] IMPRESSION: Periprosthetic fracture along the lateral margin of the distal por tion of the proximal phalanx of the second toe
[2024-05-08 12:58] VITALS: BP 120/47; PULSE 90; RESP 16; TEMP 36.4; O2SAT 100
--- OUTSIDE RECORDS SUMMARY | 2024-05-08 13:04 | XMS_ITS | Clinical Summary ---
Author Organization [facility] Kathrine Mcintosh Address [address] [place] [address] Care Team Providers Care Mechanic Sound Technician Name Role Phone Malathi Perez MD Primary Care Provider [phone] Allergies No known active allergies Medications MELATONIN ORAL Take by mouth. Active albuterol (PROVENTIL,ANDERSON MARCIE) 2.5 mg /3 mL (0.083 %) Solution for Nebulization albuterol sulfate 2.5 mg/3 mL (0.083 %) solution for nebulization USE 2 VIALS IN NEBULIZER Q 6 H UTD Activ e benzonatate (TESSALON) 200 mg capsule benzonatate 200 mg capsule 1 po TID prn Active azithromycin (ZITHROMAX) 250 mg tablet 02/24/20 20 Active atorvastatin (LIPITOR) 20 mg tablet TK 1 T PO QHS 01/13/20 20 Active Budesonide 1 mg/2 mL Suspension for Nebulization budesonide 1 mg/2 mL suspension for nebulization INHALE 1 VIAL NEB QD PRN Active budesonide-formo teroL (SYMBICORT) 160-4.5 mcg/actuation HFA Aerosol Inhaler Symbicort 160 mcg-4.5 mcg/actuation HFA aerosol inhaler Inhale 2 puffs twice a day by inhalation route. Active citalopram (CeleXA) 40 mg tablet citalopram 40 mg tablet 07/08/19 18 Active cyclobenzaprine (FLEXERIL) 10 mg tablet cyclobenzaprine 10 mg tablet Active DULoxetine (CYMBALTA) 60 mg Capsule, Delayed Release(E.C.) duloxetine 60 mg capsule,delayed release TK 1 C PO QD 02/12/20 18 Active EPINEPHrine (EPIPEN) 0.3 mg/0.3 mL Auto-Injector EpiPen 2-Deven 0.3 mg/0.3 mL injection, auto-injector INJECT INTRAMUSCULARLY DIRECTED FOR ALLERGIC REACTION Active ergocalciferol (VITAMIN D2) 50,000 unit capsule ergocalciferol (vitamin D2) 1,250 mcg (50,000 unit) capsule TK 1 C PO Q WK 01/11/20 20 Active famotidine (PEPCID) 40 mg tablet famotidine 40 mg tablet TK 1 T PO BID 12/03/19 20 Active fluticasone propionate (FLONASE) 50 mcg/spray [place], Suspension nasal inhaler Administer 1 [place] in each nostril. Active gabapentin (NEURONTIN) 100 mg capsule TK 1 C PO TID 02/21/20 20 Active HYDROcodone-acet aminophen (NORCO) 5-325 mg tablet hydrocodone 5 mg-acetaminophen 325 mg tablet TAKE ONE TABLET BY MOUTH EVERY 4-6 HOURS NEEDED Active meclizine (ANTIVERT) 25 mg tablet meclizine 25 mg tablet TAKE 1 TABLET BY MOUTH THREE TIMES DAILY 02/12/20 18 Active meloxicam (MOBIC) 15 mg tablet meloxicam 15 mg tablet Active rOPINIRole (REQUIP) 3 mg Tablet ropinirole 3 mg tablet TK 1 T PO QD HS 01/19/20 20 Active apixaban (Eliquis) 2.5 mg tablet Take 2.5 mg by mouth 2 times daily. 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 Gender Identity Not on file Sexual Orientation Not on file Last Filed Vital Signs Vital Sign Reading Time Taken Comments Blood Pressure 156/71 07/04/2020 11:42 AM CDT Pulse 87 07/04/2020 11:42 AM CDT Temperature 36.2 C (97.1 F) 07/04/2020 11:42 AM CDT Respiratory Rate - - Oxygen Saturation 97% 07/04/2020 11:42 AM CDT Inhaled Oxygen Concentration - - Weight 148.8 kg (328 lb) 07/04/2020 11:42 AM CDT Height 165.1 cm (5' 5 ) 07/04/2020 11:42 AM CDT Body Mass Index 54.58 07/04/2020 11:42 AM CDT Plan of Treatment Health Maintenance Due Date Last Done Comments CERVICAL CANCER SCREENING 09/17/1991 BREAST CANCER SCREENING 2001 COLORECTAL SCREENING 2006 Colorectal Cancer Screening 2006 FIT-DNA Q 3 years 2006 FIT/FOBT Q 1 year 2006 Flex Sig/CT Colonography Q 5 years 2006 ZOSTER VACCINE (1 of 2) 09/17/2011 RSV VACCINE (60+ or ) (1 - Risk 60-74 years 1-dose series) 2021 INFLUENZA VACCINE (#1) 2023 01/11/2020, 2019 DTAP/TDAP/TD VACCINES (2 - Td or Tdap) 01/10/2030 Insurance Care Teams Mechanic Sound Technician Relationship Specialty Start Date End Date Malathi Perez MD PCP - General Family Practice 02/25/20
--- OUTSIDE RECORDS SUMMARY | 2024-05-08 13:04 | XMS_ITS | Clinical Summary ---
Author Organization [facility] Address [address] [place] [address] Phone Care Team Providers Care Director Of Assisted Living Name Role Phone Mary Diaz MD Primary Care Provider Allergies Active Allergy Reactions Criticality Noted Date Comments Bee Venom Swelling 10/31/2022 Other-Environmental Allergen (Not Found In Search) Other (see Comments) 10/31/2022 ADHESIVE TAPE TEARS SKIN Medications VENTOLIN HFA 108 (90 Base) MCG/ACT Aerosol Solution INL 2 PFS PO Q 4 H PRN 5 12/10/19 17 Active cyclobenzaprine (FLEXERIL) 10 MG Tablet TAKES 1 TABLET EVERY OTHER NIGHT 11/12/19 17 Active Meloxicam 15 MG Tablet TK 1 T PO QD 5 02/07/20 17 Active citalopram (CELEXA) 40 MG Tablet 5 07/08/19 18 Active clobetasol (TEMOVATE) 0.05 % Gel 0 07/11/19 18 Active DULoxetine (CYMBALTA) [address] Particles Take 60 mg by mouth nightly. 5 02/12/20 18 Active estradiol (ESTRACE) 0.1 MG/GM Cream by Vaginal route as needed. 0 04/02/19 19 Active meclizine (ANTIVERT) 25 MG Tablet TK 1 T PO TID 2 02/12/20 18 Active dexamethasone (DECADRON) 0.5 MG/5ML Elixir dexamethasone 0.5 mg/5 mL oral solution SWISH AND SPIT 15 ML PO QID FOR 2 WEEKS. Active budesonide-form oterol fumarate (SYMBICORT) 160-4.5 MCG/ACT Aerosol 1 Puff daily as needed. Active EPINEPHrine (EPIPEN) 0.3 MG/0.3ML Solution Auto-injector EpiPen 2-Deven 0.3 mg/0.3 mL injection, auto-injector INJECT INTRAMUSCULARLY DIRECTED FOR ALLERGIC REACTION Active famotidine (PEPCID) 40 MG Tablet Active guaiFENesin (MUCINEX) 600 MG TABLET SR 12 HR Mucinex 600 mg tablet, extended release TK 1 T PO BID Q TWELVE H Active Phentermine HCl 37.5 MG Tablet phentermine 37.5 mg tablet TK ONE AND SS TABLET PO QD 12/18/19 17 Active rOPINIRole (REQUIP) 2 MG TabletIndicatio ns:PLMD (periodic limb movement disorder) Take 1 Tab by mouth nightly. Take one tablet nightly along with a 0.5 mg tablet 90 Tab 3 01/20/20 19 Active NIFEdipine (PROCARDIA) 10 MG Capsule Take 1 Capsule by mouth 3 times daily. 90 Capsule 07/01/19 23 Active Additional Information Patient not taking.Reported on 10/31/2022 Aspirin 81 MG Capsule Take 81 mg by mouth daily. 30 Capsule 07/01/19 23 Active Additional Information Patient not taking.Reported on 09/23/2023 Tiotropium Stevenson Monohydrate (SPIRIVA HANDIHALER IN) take by inhalation daily as needed. Active LEVOTHYROXINE SODIUM PO Take 0.112 mg by mouth every morning (before breakfast). Activ e apixaban (ELIQUIS) 5 MG Tablet Take 5 mg by mouth 2 times daily. Active losartan (COZAAR) 100 MG Tablet Take 50 mg by mouth nightly. Active sertraline (ZOLOFT) 100 MG Tablet Take 100 mg by mouth nightly. Active spironolactone (ALDACTONE) 25 MG Tablet Take 25 mg by mouth nightly. Active gabapentin (NEURONTIN) 100 MG Capsule Take 100 mg by mouth 2 times daily. Active rosuvastatin (CRESTOR) 20 MG Tablet Take 20 mg by mouth nightly. Active other by Other route daily. BARIATRIC VITAMIN Active HYDROcodone-aneta taminophen (NORCO) 10-325 MG TabletIndicatio ns:Metatarsalgi a, left foot Take 1 Tablet by mouth every 4 hours as needed for Mild or more severe pain. 30 Tablet 05/22/19 24 Active HYDROcodone-aneta taminophen (NORCO) 5-325 MG TabletIndicatio ns:Exostosis of bone of ankle Take 1 Tablet by mouth every 4 hours as needed for Mild or more severe pain. 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) 02/20/2017 Tea's thyroiditis 02/20/2017 Subclinical hyperthyroidism 02/20/2017 Hot thyroid nodule 02/20/2017 Family History Medical History Relation Name Comments Cancer Brother LUNG Heart Attack Father Chronic Obstructive Pulmonary Disease Mother Other-comment Mother LUNG MASS Cancer Sister 1 LUNG Cancer Sister 2 LUNG Relation Name Status Comments Brother Father Mother Sister 1 Sister 2 Social History Tobacco Use Types Packs/Day Years Used Date Smoking Tobacco: Former Cigarettes 3 37 1 972 - 2009 Smokeless Tobacco: Never Alcohol Use Standard Drinks/Week Comments No 0 (1 standard drink = 0.6 oz pur e alcohol) Comments No Sex and Gender Information Value Date Recorded Sex Assigned at Female 05/07/2023 5:26 AM TOBACCO ACREAGE MEASURER Legal Sex Female 12:08 AM CDT Gender Identity Female 05/07/2023 5:26 AM TOBACCO ACREAGE MEASURER Sexual Orientation Straight 05/07/2023 5: 26 AM TOBACCO ACREAGE MEASURER 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 Not on file Not on file Not on file Last Filed Vital Signs Vital Sign Reading Time Taken Comments Blood Pressure 126/78 10/09/2023 3:20 PM CDT Pulse 66 10/09/2023 3:20 PM CDT Temperature 36.4 C (97.5 F) 10/09/2023 3:20 PM CDT Respiratory Rate 16 10/09/2023 3:20 PM CDT Oxygen Saturation 97% 10/09/2023 3:20 PM CDT Inhaled Oxygen Concentration - - Weight 73.5 kg (162 lb) 10/09/2023 10:59 AM CDT Height 162.6 cm (5' 4 ) 10/09/2023 10:59 AM CDT Body Mass Index 27.81 10/09/2023 10:59 AM CDT Plan of Treatment Health Maintenance Due Date Last Done Comments Hepatitis C Virus (HCV) Screening 1960 Cologuard 09/17/2011 Immunochemical Fecal Occult Blood 09/17/2011 Mammogram 09/17/2011 Influenza Immunization (#1) 2023 02, 05/01/2022, 01/24/2021, Additional history exists SARS-COV-2 Immunization ( season) 2023 05/13/2023, 05/01/2022, 03/30/2021, Additional history exists Colonoscopy 09/18/2026 09/18/2016 Colorectal Cancer Screening 09/18/2026 09/18/2016 Zoster Immunization Completed 03/30/2021, Lung Cancer Screening Discontinued 09/03/2022 DTaP/Tdap/Td Immunization Discontinued 05/13/2023, Pneumococcal Immunization (50+ years) Completed 05/13/2023 Pneumococcal Immunization Combined Discontinued 05/13/2023 Respiratory Syncytial Virus (RSV) Immunization (Adult) Completed 05/13/2023 TdaP Immunization Completed 05/13/2023, 01/11/2020 Hepatitis B Immunization Aged Out No longer eligible based on patient's age to complete this topic Meningococcal Immunization (ACWY) Aged Out No longer eligible based on patient's age to complete this topic Rotavirus Immunization Aged Out No lo nger eligible based on patient's age to complete this topic Medical Devices Implanted Type Area Director Of Alumni Relations Device Identifier Shelf Expiration Date Model / Serial / Lot Tissue Placental Matrix Flowable Viaflow 2.0cc - [id number] Implanted:Qty: 1 on 10/09/2023 by Yamilex Beyer DPM at [facility] IMPLANT Left: Ankle [employer] 04/17/2028 AMAF-0020 / AMAF-0020 / [id number] Headles Screw Size 20 Implanted:Qty: 2 on 11/19/2022 by Yamilex Beyer DPM at [facility] Left: Foot AR-8725-20 H / AR-8725-20 H / AR-8725-20 H Explanted Type Area Director Of Alumni Relations Device Identifier Shelf Expiration Date Model / Serial / Lot 2.5 Headless Screw Size 12 Implanted:Qty: 2 on 11/19/2022 by Yamilex Beyer DPM at [facility] Explanted:Qty: 2 on 05/22/2023 by Yamilex Beyer DPM at [facility] Left: Foot ARTHREX AR-8725-12H / AR-8725-12H / AR-8725-12H Insurance MEDICAID [place] MEDICARE C [employer] Care Teams Director Of Assisted Living Relationship Specialty Start Date End Date Mary Diaz MD [address] [place] [address] [place] [address] PCP - General Family Medicine 06/30/22
--- OUTSIDE RECORDS SUMMARY | 2024-05-08 13:04 | XMS_ITS | Patient Health Record ---
Author Organization [facility] Address [address] [place] [address] Care Team Providers Care Ship'S Carpenter Name Role Phone Josefina Maharaj Unavailable [phone] Reason For Referral No Information Plan Of Treatment No Information Insurance Providers Payer Name Payer Address Payer Phone Subscriber Number Group Number Insured Name Patient Relationship to Insured Coverage Start Date Coverage End Date [facility] Medicare [facility] [address] [address] [place] [address] [phone] [id number] Flor Gallego Self - patient is the insured 3
--- OUTSIDE RECORDS SUMMARY | 2024-05-08 13:04 | XMS_ITS | Continuity of Care Document ---
Author Organization [facility] Address [address] [address] [place] [address] Phone Care Team Providers Care Machine Stripper Cutter Name Role Phone SukhHilario rubio DPMander Unavailable Unavailab le Allergies, Adverse Reactions, Alerts Substance Reaction Status Criticality adhesive Active No Information polymyxin B Active No Information NEOMYCIN SULFATE Active No Informat ion BACITRACIN ZINC Active No Informati on bacitracin Active No Information Medications Medication Instructions Dosage Effective Dates (start - stop) Status Comments Medrol (Deven) 4 mg tablets in a dose pack take by oral route as directed per package instructions 0.00 - Active Zyrtec 10 mg capsule - Active losartan 50 mg tablet take 1 tablet by oral route every day 50 MG - Active rosuvastatin 20 mg tablet take 1 tablet by oral route every day 20 MG - Active spironolactone 25 mg tablet take 1 tablet by oral route every day 25 MG - Active Bariatric Multivitamins 45 mg iron-800 mcg-120 mcg capsule - Active gabapentin 100 mg capsule take 1 capsule by oral route 3 times every day 100 MG - Active potassium chloride ER 20 mEq tablet,extended release take 1 tablet by oral route every day with food 20 MEQ - Active ropinirole 1 mg tablet take 1 tablet by oral route 3 times every day 1 MG - Active cyclobenzaprine 10 mg tablet take 1 tablet by oral route 3 times every day 10 MG - Active levothyroxine 112 mcg capsule take 1 capsule by oral route every day 112 MCG - Active hydrocodone 10 mg-acetaminophen 325 mg/15 mL (15 mL) oral solution take 15 milliliter by oral route every 4 - 6 hours as needed 15.00 milliliter - Active Procedures Procedure Date OFFICE/OUTPATIENT VISIT EST OFFICE/OUTPATIENT VISIT NEW Advance Directives Directive Yes / No Effective Date File Name No Information Encounters Encounter Description Practice Location Reason(s) For Visit Diagnoses Date Provider Providers Copied on Encounter [facility] , [address], [place], [address], [place] tel: [phone] [facility] No Information [address] [place], [place], [place], [id number] , [place]. tel: [phone] [facility] , [address], [place], [address], [place] tel:[phone] [facility] Fat pad atrophy of footMetatarsa lgia, left foot [address] [place], [place], [place], [id number] , [place]. tel: [phone] OFFICE/OUTPAT IENT VISIT EST [facility] , [address], [place], [address], [place] tel: [phone] [facility] [place] Injury of plantar plate of left foot, initial encounterFat pad atrophy of footMetatarsa lgia, left foot [address] [place], [place], [place], [id number] , [place]. tel: [phone] Referring Provider: Eddie Gutiérrez, [address] [place] [address], [address] . tel:[phone] OFFICE/OUTPAT IENT VISIT NEW [facility] , [address], [place], [address], [place] tel:[phone] [facility] [place] Metatarsalgia , left footFat pad atrophy of footInjury of plantar plate of left foot, initial encounter [address], [place], [place], [id number] , [place]. tel: [phone] Referring Provider: [place], [address] . tel:[phone] Family History Family Member Type Diagnosis Age At Onset No Information Payers Payer name Insurance type Covered constitution party ID Zak mckay(s) MATT Medicare Advantage HMO/POS [id number] Social History Type Description Quantity Date Captured Comments Sex Female Smoking Status No Information Chief Complaint And Reason For Visit No Information Reason For Referral Reason For Referral No Information Plan Of Treatment Date Type Action Status Goal Tobacco cessation counseling completed Goal Tobacco cessation counseling completed Referral Ordered: RADEX FOOT COMPL MINIMUM 3 VIEWS LT foot ordered History Of Present Illness Encounter Date Complaint History Of Prese nt Illness No Information Functional Status Date Functional Assessmen t No Information Instructions Date Instruction Additional Infor niecy Fall prevention home exercise program handout provided Assessments Type Assessment Date No Information Patient Care Teams Name Effective Dates (start - stop) Status Members No Information
--- OUTSIDE RECORDS SUMMARY | 2024-05-08 13:04 | XMS_ITS ---
Author Organization [facility] Address [address] [place] [address] Care Team Providers Care Mobile Application Developer Name Role Phone Josefina Maharaj Unavailable [phone] REASON FOR VISIT Update Demographics - Additional Info Encounters Encounter Location Date Provider Diagnosis [facility] [address] [place] [address] 01/06/2023 Josefina Maharaj Plan Of Treatment No Information Progress Notes * Flor LOZANODOB:[birth year] (62 yo F)Acc No.[id number]:01/06/2023 Patient: Flor Mendoza :1960 A ge:62 Y S ex:Female Address:[address] [place] [address] * true * Date: Generated for Printi ng/Faxing/eTransmitting on: 0 05/08/2024 01:04 PM HOUSE 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
--- OUTSIDE RECORDS SUMMARY | 2024-05-08 13:04 | XMS_ITS | Encounter Summary ---
Author Organization [facility] Address 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
--- OUTSIDE RECORDS SUMMARY | 2024-05-08 13:04 | XMS_ITS | Encounter Summary ---
Author Organization [facility] Address [address] [place] [address] Care Team Providers Care Medical Auditor Name Role Phone Malathi Perez MD Primary Care Provider Encounter Details Date Type Department Care Team (Late st Contact Info) Description 11/21/2003 Outpatient Historical [facility] Primary Care - [address] [place] [address] Cody Rubio MD [address] [facility] [address] [place] [address] Social History Tobacco Use Types Packs/Day Years Used Date Smoking Tobacco: Never Assessed Comments Unknown Sex and Gender Information Value Date Recorded Sex Assigned at Not on file Legal Sex Female 5:18 AM PENSION ADVISER Gender Identity Not on file Sexual Orientation Not on file documented as of this encounter Plan of Treatment Not on file documented as of this encounter Visit Diagnoses Not on filedocumented in this encounter Care Teams Medical Auditor Relationship Specialty Start Date End Date Malathi Perez MD PCP - General Family Practice 02/25/20 documented as of this encounter
--- OUTSIDE RECORDS SUMMARY | 2024-05-08 13:04 | XMS_ITS | Encounter Summary ---
Author Organization [facility] Address 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
--- OUTSIDE RECORDS SUMMARY | 2024-05-08 13:04 | XMS_ITS | Encounter Summary ---
Author Organization [facility] Address [address] [place] [address] Care Team Providers Care Ballaster Name Role Phone Malathi Perez MD Primary Care Provider [phone] Encounter Details Date Type Department Care Team (Late st Contact Info) Description 11/25/2002 Outpatient Historical [facility] Primary Care - [address] [place] [address] Cody Rubio MD [address] [facility] [address] [place] [address] Social History Tobacco Use Types Packs/Day Years Used Date Smoking Tobacco: Never Assessed Comments Unknown Sex and Gender Information Value Date Recorded Sex Assigned at Not on file Legal Sex Female 5:18 AM CLINICAL 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
--- OUTSIDE RECORDS SUMMARY | 2024-05-08 13:04 | XMS_ITS | Encounter Summary ---
Author Organization [facility] Address [address] [place] [address] Care Team Providers Care Coal Briquette Machine Operator Name Role Phone Malathi Perez MD Primary Care Provider Encounter Details Date Type Department Care Team (Late st Contact Info) Description 04/03/2003 Outpatient Historical [facility] [place] Gonsalves [place] [address] Er, Authorized P NO ADDRESS ON FILE DERMATOPHYTOSIS OF NAIL (Primary Dx) Social History Tobacco Use Types Packs/Day Years Used Date Smoking Tobacco: Never Assessed Comments Unknown Sex and Gender Information Value Date Recorded Sex Assigned at Not on file Legal Sex Female 5:18 AM 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
--- OUTSIDE RECORDS SUMMARY | 2024-05-08 13:04 | XMS_ITS | Clinical Summary ---
Author Organization [facility] [address] [place] [address] [place] [id number] Care Team Providers Care Loan Documents Closer Name Role Phone Minerva Serna MD Unavailable Alfie Vegas MD Unavailable [phone] Toni Cintron MD Unavailable [phone] Brendan Thomas DPLinda Unavailable [phone] Mary Diaz MD Primary Care Provider Vivi Wood CNM Unavailable [phone] Tahmina Marvin MD Unavailable Cristofer Alicia MD Unavailable Prashanth Lee MD Unavailable Roberto Carlos Fregoso MD Unavailable García Siddiqui DO Unavailable [phone] Ana Delarosa MD Unavailable [phone] Orion Sommer MD Unavailable [phone] Alban Hernandez MD Unavailable [phone] Rehana Mckeon MD Unavailable Allergies Active Allergy Reactions Criticality Noted Date Comments Adhesive Other (See comments) Low 05/16/2022 Tears skin Zjnxwafl-Egnebfwkal-Fztsgazp n Itching,Rash Medium 06/07/2015 Venom-Honey Bee Swelling Medium 10/31/2022 Medications albuterol 2.5 mg /3 mL (0.083 %) nebulizer solution Take 3 mL (2.5 mg total) by nebulization every 6 (six) hours as needed for wheezing Active gabapentin (NEURONTIN) 100 mg capsuleIndication s:Neuropathic Pain Take 1 capsule (100 mg total) by mouth 2 (two) times a day 020 Active multivit-min/iron /folic acid/K (BARIATRIC MULTIVITAMINS ORAL)Indications: supplement Take 1 tablet by mouth every morning Active cyclobenzaprine (FLEXERIL) 10 mg tabletIndications :Fibromyalgia,Mus jose manuel Spasm Take 1 tablet (10 mg total) by mouth nightly 022 Active HYDROcodone-aceta minophen (NORCO) 10-325 mg per tablet Take 1 tablet by mouth every 6 (six) hours as needed for pain 023 Active rOPINIRole (REQUIP) 3 mg tabletIndications :Restless Legs Syndrome Take 1 tablet (3 mg total) by mouth nightly Active albuterol HFA (PROVENTIL HFA,VENTOLIN HFA,PROAIR HFA) 90 mcg/actuation inhaler Inhale 2 puffs every 6 (six) hours as needed for wheezing Active calcium citrate (CALCITRATE) 950 mg (200 mg of elemental calcium) tabletIndications :hypocalcemia Take 1 tablet (950 mg total) by mouth 3 (three) times a day for 7 days, THEN 1 tablet (950 mg total) 2 (two) times a day for 7 days, THEN 1 tablet (950 mg total) daily for 7 days. 42 tablet 023 2028 Active estradioL (ESTRACE) 0.01 % (0.1 mg/gram) vaginal creamIndications: Atrophy of Vulva Insert 1 g into the vagina 3 (three) times a week Tues and Thurs 12 g 023 2028 Active rOPINIRole (REQUIP) 1 mg tablet TAKE 4 TABLETS BY MOUTH 1 TO 2 HOURS BEFORE BEDTIME FOR RESTLESS LEG SYMPTOMS 023 Active spironolactone (ALDACTONE) 25 mg tablet Take 1 tablet (25 mg total) by mouth daily Active Spiriva with HandiHaler 18 mcg per inhalation capsuleIndication s:Mild chronic obstructive pulmonary disease (HCC) INHALE THE CONTENTS OF 1 CAPSULE BY MOUTH VIA HANDIHALER ONCE DAILY 90 capsule 3 Active budesonide (PULMICORT) 0.5 mg/2 mL nebulizer solution USE 1 VIAL TWICE DAILY. MIX CONTENTS OF VIAL WITH 240 ML OF SALINE IN NEILMED IRRIGATION BOTTLE. IRRIGATE EACH NOSTRIL WITH 120 ML TWICE DAILY Active EPINEPHrine 0.3 mg/0.3 mL auto-injection syringe INJECT 1 PEN IN THE MUSCLE ONE TIME DIRECTED Active TRUEplus Insulin 0.3 mL 31 gauge x 5/16 syringe USE TO INJECT SUBCUTANEOUSLY TWICE A WEEK Active doxycycline (DORYX) 100 mg EC tablet Take 1 tablet (100 mg total) by mouth 2 (two) times a day Active mupirocin (BACTROBAN) 2 % ointmentIndicatio ns:Skin infection Apply topically 2 (two) times a day Prn for skin infection at wound 22 g 1 Active ipratropium (ATROVENT) 42 mcg (0.06 %) nasal sprayIndications: Seasonal allergic rhinitis due to pollen Administer 2 sprays into each nostril 3 (three) times a day 180 mL 11 Active cetirizine (ZyrTEC) 10 mg tabletIndications :Seasonal allergic rhinitis due to pollen Take 1 tablet (10 mg total) by mouth daily 30 tablet 11 024 2024 Active levothyroxine (SYNTHROID) 112 mcg tabletIndications :Postoperative hypothyroidism TAKE 1 TABLET BY MOUTH DAILY [address] (CYMBALTA) 60 mg capsuleIndication s:Anxiety with Depression,Fibrom yalgia Take 1 capsule (60 mg total) by mouth nightly 90 capsule 1 024 2024 Active potassium chloride ER 20 mEq CR tablet TAKE 2 TABLETS BY MOUTH DAILY FOR 3 DAYS, THEN TAKE 1 TABLET BY MOUTH EVERY MORNING WITH BREAKFAST 93 tablet 1 Active rosuvastatin (CRESTOR) 20 mg tabletIndications :Peripheral vascular disease (HCC) TAKE 1 TABLET BY MOUTH DAILY 30 tablet 11 024 Active losartan (COZAAR) 50 mg tabletIndications :Primary hypertension TAKE 1 TABLET(50 MG) BY MOUTH EVERY NIGHT 90 tablet 1 025 Active losartan (COZAAR) 50 mg tabletIndications :hypertension Take 1 tablet (50 mg total) by mouth nightly 90 tablet 1 024 2024 Discontinued Active Problems Problem Noted Date Diagnosed Date Seasonal allergic rhinitis due to pollen Assessment & Plan (12/26/2023 9:11 AM CDT): Nasal saline spray (Simply saline, Little Remedies, [place], [place]) 2 second sprays or 2 squeezes into each nostril while looking down over the sink, do not need to sniff in Followed by Atrovent 2 sprays into each nostril while looking down over the sink, do not sniff in or blow nose after use for at least 30 minutes 2-3 times daily Cetirizine 10 mg daily Referred otalgia of left ear 12/26/2023 Assessment & Plan (12/26/2023 9:12 AM CDT): Pain coming from TMJ or Neck Laryngeal spasm 12/26/2023 Assessment & Plan (12/26/2023 9:11 AM CDT): Call if no improvement in 6 weeks to trial Pepcid 40 mg, or see GI Laryngopharyngeal reflux discussed and Handout provided Skin infection 10/30/2023 Assessment & Plan (10/30/2023 6:37 PM CDT): Having surgical site infection. Working with her surgeon. Patient has Neosporin allergy and has been using triple antibiotic. We will have her change to mupirocin. Care per specialists in regards to use of oral antibiotics and the surgery itself. We did discuss with patient that Neosporin and triple antibiotic are the same thing so her known allergy will cross over. Hopefully by changing to mupirocin, OTC bacitracin or just Vaseline to keep the wound moist she will be less likely develop worsening contact dermatitis Platelets decreased 04/30/2023 Assessment & Plan (10/30/2023 6:34 PM CDT): This has been noted on her last few labs within our system and secondary locations. No bleeding issues though. If starts trending down we may need to do further evaluation Assessment & Plan (04/30/2023 5:32 PM CRANE CREW SUPERVISOR): Noted on more recent labs. Patient had some blood work through her specialists. I have encouraged her to get me a copy of these to review Transaminitis 04/30/2023 Assessment & Plan (04/30/2023 5:35 PM CRANE CREW SUPERVISOR): Present since least 2021. The elevated liver enzymes were present prior to starting cholesterol medication. It is unclear if the worsening of the LFTs is related to her statin or unrelated given it did predate being placed on medication. Patient is working with GI. She reports they are not concerned about the liver enzyme elevation and are just monitoring however we have not received these records. She did reportedly have recent screening for autoimmune and viral hepatitis causes which is reportedly negative Coronary artery calcification seen on CAT scan 0 10/28/2022 Assessment & Plan (04/30/2023 5:32 PM CRANE CREW SUPERVISOR): Chronic calcification noted on prior imaging. Risk factor modification with high-intensity statin, aspirin and control blood pressure is recommended. If GI feels the worsening liver enzymes is purely statin related then we may have to decrease the dose of rosuvastatin. However, the liver enzyme elevation did predate initiation of cholesterol medication so it is likely not the only cause Assessment & Plan (10/28/2022 7:10 PM CDT): Mild coronary calcifications seen on prior CTA chest. Continue risk factor modification with ASA and high-intensity statin. Patient sees cardiology Blue toe syndrome of left lower extremity 2022 Assessment & Plan (10/30/2023 6:34 PM CDT): Patient had an episode in late 2022 that now has resolved. She had extensive evaluation for multiple specialists and did not show any signs of severe vascular compromise. It is possible this was actually due to an occult musculoskeletal injury. Will monitor for recurrence but denies current symptoms Assessment & Plan (04/30/2023 5:32 PM CRANE CREW SUPERVISOR): Chronic but symptomatically improving. Working with Podiatry. Vascular signed off as they did not see any definitive vascular cause Assessment & Plan (10/28/2022 7:09 PM CDT): Negative vascular evaluation. Patient feels symptoms have been improving since started on Eliquis, ASA and got ozone treatment. She notes toe is improving in color and pain is lessening some. Still can not tolerate any pressure to the toe. Podiatry plans to address the issue at the MTP head. Continues use a postop shoe. Defer care to specialists Intestinal intussusception ([facility]) 08/16/2022 Overview (08/16/2022): Multiple areas of short segment small bowel intussusception incidentally noted on CT angiogram for circulation issues Venous insufficiency 07/01/2022 Postoperative hypothyroidism 06/04/2022 Assessment & Plan (2023 10:13 AM CDT): Chronic problem. Clinically & biochemically euthyroid at this time. Currently taking levothyroxine 112mcg daily. Aware to take 1st thing in morning, 30-60 minutes before food/drink/other medications. Will repeat TFTs today at [facility]. Verified that she uses mychart. Aware to check results/results letter in mychart. Will contact by phone if needed. Assessment & Plan (05/13/2023 11:09 AM CRANE CREW SUPERVISOR): Chronic problem. Clinically euthyroid at this time. Reviewed recent labs 02/21 & 02/27 that were vastly different. Will repeat TFTs today at [facility]. Verified that she uses mychart. Aware to check results/results letter in mychart. Will contact by phone if needed. Aware to take 1st thing in morning, 30-60 minutes before food/drink/other medications. Assessment & Plan (04/30/2023 5:31 PM CRANE CREW SUPERVISOR): Chronic. Follows with endocrinology. Continue thyroid medication per specialist Assessment & Plan (01/28/2023 11:38 AM CRANE CREW SUPERVISOR): Chronic problem. Improved on current levothyroxine 112mcg daily. Will repeat TFTs mid February. Aware to check her mychart for results. Aware to take 1st thing in morning, 30-60 minutes before food/drink/other medications. Assessment & Plan (10/28/2022 7:10 PM CDT): Chronic. Relatively Euthyroid. Continue medication and care per pulmonology Assessment & Plan (09/26/2022 12:41 PM CDT): Uncontrolled Increase Levothyroxine to 112 mcg daily Importance of taking the Levothyroxine on an empty stomach was discussed Repeat TSH, FT4 in 2 m Assessment & Plan (06/04/2022 4:13 PM CDT): New onset after total thyroidectomy 05/20/22. Has done very well post-op. Surgical incision has healed w/o difficulty. Currently taking levothyroxine 100mcg daily. TSH/T4 ordered. Verified that she uses [facility]. Aware to check results/results letter in [facility]. Will contact by phone if needed. Will send 90 day refill to [facility] once labs result Verified phone #/address if I need to call her. Pelvic floor dysfunction 04/24/2022 Assessment & Plan (04/24/2022 8:51 AM CRANE CREW SUPERVISOR): -no myofascial pain noted on today's exam -continue performing PFPT exercises Vaginal atrophy 04/24/2022 Assessment & Plan (04/24/2022 8:51 AM CRANE CREW SUPERVISOR): -discussed decreasing VET to twice per week, she verbalizes understanding Urinary, incontinence, stress female 04/08/2022 Assessment & Plan (10/30/2023 6:35 PM CDT): Patient is having some increased symptoms recently. She worries that there could be some scar tissue or retained clips from prior surgery. Mostly describes stress leakage. Encouraged her to work on Kegel exercise and follow up with the urogynecologist for additional treatment given she is worried that her surgery may no longer working Assessment & Plan (04/24/2022 8:55 AM CRANE CREW SUPERVISOR): -she is not using the the #1 Ring with knob pessary due to discomfort/did not help; she was shown an incontinence dish. She is not interested in a pessary trial today -she would like to have repeat sling procedure, UDS ordered as per Dr. Driscoll's recommendation at last OV; advised patient to let us know ahead of time if she would like to try incontinence dish and could add on pessary fitting appointment on day of bladder testing. DAVIDE (generalized anxiety disorder) 04/08/2022 Overview (04/08/2022): Sees psych, Vivi Wood Assessment & Plan (10/30/2023 6:33 PM CDT): Chronic. Mood is somewhat stable. She is still on sertraline. Has been coming from her psychiatrist despite the fact she has not seen him in a couple of years. She is also on duloxetine for pain issues. Continue care per Psychiatry. We will continue to monitor as well Assessment & Plan (04/30/2023 5:31 PM CRANE CREW SUPERVISOR): Chronic. Struggles some with anxiety at times but not severe. Continue medication care per Psychiatry Assessment & Plan (10/28/2022 7:10 PM CDT): Chronic. Care per Psychiatry. Mood has been relatively stable except for some anxiety over dealing with the toe Restless leg syndrome 04/08/2022 Overview (04/08/2022): on requip. continye rx and care per pain management Assessment & Plan (10/30/2023 6:33 PM CDT): Chronic. Patient will stay on ropinirole as this helps with her symptoms. She does not have Parkinson's but is taking the ropinirole for the restless legs Assessment & Plan (04/30/2023 5:31 PM CRANE CREW SUPERVISOR): Chronic. Continue medication care per pain management Assessment & Plan (10/28/2022 7:11 PM CDT): Chronic. Continue Requip Pulmonary nodules 04/08/2022 Overview (04/08/2022): pt to get me LDCT reprot to review. Additional monitoring TBD pending report as reprots 15 yrs from quit date Assessment & Plan (10/30/2023 6:35 PM CDT): Patient reports she had the follow-up LDCT completed in January. We will try to track down a report. Assessment & Plan (04/30/2023 5:33 PM CRANE CREW SUPERVISOR): Noted previously. These were not mentioned on her CT scan when done to evaluate for pulmonary embolism in August. We will plan 1 year follow-up CT in August to ensure no residual pulmonary nodules needing additional monitoring Cervical post-laminectomy syndrome 05/09/2021 Overview (04/08/2022): Dr. Yon Brown Assessment & Plan (10/30/2023 6:32 PM CDT): Chronic. Continue working with the pain management. Stable Assessment & Plan (04/30/2023 5:31 PM CRANE CREW SUPERVISOR): Chronic. Continue medication and care per pain management Assessment & Plan (10/28/2022 7:11 PM CDT): Chronic. Continue medication and care per pain management Long-term current use of opiate analgesic 2021 Overview (04/08/2022): Dr. Yon Brown Assessment & Plan (04/30/2023 5:33 PM CRANE CREW SUPERVISOR): Chronic. Medication care per pain management Osteopenia of multiple sites 02/12/2021 Depressive disorder 01/28/2021 Overview (04/08/2022): Vivi Marin Assessment & Plan (04/30/2023 5:30 PM CRANE CREW SUPERVISOR): Chronic. Mood is stable. Continue medication care per Psychiatry. Does have some anxiety. I suspect some of her sleep issues are actually related to her mood. Monitor. Sleep hygiene tips provided Assessment & Plan (10/28/2022 7:10 PM CDT): Chronic. Mood is relatively stable. Continue care per Psychiatry Primary fibromyalgia syndrome 01/28/2021 Assessment & Plan (10/30/2023 6:32 PM CDT): Chronic. Her musculoskeletal issues wax and wane. She does struggle some at times. Negative evaluation of the past for rheumatoid arthritis. Has a degree of chronic gabapentin as well as hydrocodone for this. The duloxetine she is on is to help the fibromyalgia related pain. She has a degree of some chronic right arm paresthesias with possible very slight weakness from an old cervical herniated disc/neck issue but denies history of monoplegia Assessment & Plan (04/30/2023 5:30 PM CRANE CREW SUPERVISOR): Chronic. Continue medication and care per painting machine operator Assessment & Plan (10/28/2022 7:11 PM CDT): Chronic. Continue medication and care per painting machine operator Primary localized osteoarthritis of pelvic regio n and thigh 01/28/2021 Tobacco dependence in remission 01/28/2021 Assessment & Plan (04/30/2023 5:33 PM CRANE CREW SUPERVISOR): Chronic. Patient will be due for updated lung cancer screening CT in August. Continue to abstain for smoking Presence of artificial hip joint 01/03/2021 08/26/2022 Chronic bilateral low back pain with bilateral s ciatica 02/14/2020 Overview (04/08/2022): [facility] pain management, Dr. Marvin Assessment & Plan (10/30/2023 6:31 PM CDT): Chronic. Stable. Continue cyclobenzaprine, gabapentin. Continue working with pain management Assessment & Plan (04/30/2023 5:27 PM CRANE CREW SUPERVISOR): Chronic. Can continue medication care for pain management. She is on gabapentin, duloxetine, hydrocodone, and ropinirole Assessment & Plan (10/28/2022 7:11 PM CDT): Chronic. Can continue medication care for pain management. She is on gabapentin, duloxetine, hydrocodone known and ropinirole Assessment & Plan (02/14/2020 4:43 PM CRANE CREW SUPERVISOR): Patient has 10 day history of low back pain with occasional radiating pain down either leg. There is no accompanying weakness or sensory loss evidenced on examination today. Bladder or bowel function appear preserved per patient reporting. Her neurological examination today is normal save for some pain reported with range of motion of the low back. Patient reports that she came to see me with the belief that I was a spine surgeon. I have counseled her that I am a medical neurologist and not a spine surgeon. Upon knowledge of that fact, she requests that she continue with Dr. Carreno in [place] as she sees no need to have 2 new medical neurologists in her care and prefers to see Dr. Carreno as he is located closer to her home. I have provided her a prescription for physical therapy, and I have suggested that she follow up with Dr. Carreno upon its completion. If she does not have symptomatic relief following the prescribed therapy, then she may need additional neuroimaging and neurophysiologic assessment. I will plan on seeing her back on an as-needed basis. 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 Symptomatically has improved. Monitor. Assessment & Plan (10/28/2022 7:18 PM CDT): Patient with some ocular migraines and increased eye issues recently. Unclear what degree of ice symptoms were related to her migraine headaches versus potential underlying I disorder. She is to see Ophthalmology for more definitive care Tea's thyroiditis 02/20/2017 Overview (10/28/2022): S/p thyroidectomy Assessment & Plan (10/30/2023 6:31 PM CDT): Chronic. Has been relatively euthyroid. Continue levothyroxine. Recent TSH slightly out of range but patient had missed a few doses Assessment & Plan (04/30/2023 5:30 PM CRANE CREW SUPERVISOR): Chronic. Follows with endocrinology. Continue medication and care per specialists Assessment & Plan (02/12/2021 12:34 PM CRANE CREW SUPERVISOR): With subclinical hyperthyroidism. Will recheck free T4 and free T3 As on a day stay normal, will continue to monitor. 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 Breathing controlled. We will continue Spiriva and p.r.n. albuterol. Declines need for adjustment Assessment & Plan (04/30/2023 5:27 PM CRANE CREW SUPERVISOR): Chronic. Breathing is relatively stable. Denies significant shortness of breath and wheezing currently. Continue current inhaler Assessment & Plan (10/28/2022 7:09 PM CDT): Breathing is relatively stable. Denies significant shortness of breath and wheezing currently. Continue current inhaler Hyperlipidemia 07/21/2009 Assessment & Plan (10/30/2023 6:31 PM CDT): Chronic. On rosuvastatin. We will continue Assessment & Plan (04/30/2023 5:30 PM CRANE CREW SUPERVISOR): Chronic. Patient has a degree of transaminitis but it predated starting the cholesterol medication. She would significant elevation of the liver enzymes in February of 2020 2. It has worsened some since being put on rosuvastatin but it is unclear if this is the definitive cause. She is working with GI. Patient reports GI is not concerned and are just going to monitor for now. Assessment & Plan (10/28/2022 7:10 PM CDT): Mild. Chronic. She tolerates the previously started rosuvastatin. Continue Hypertension 05/22/2001 Assessment & Plan (10/30/2023 6:32 PM CDT): Chronic. Controlled. Continue losartan at a lower dose of 50 mg daily. Start home blood pressure monitoring. If continues to have issues with lightheadedness then we may need to consider decreasing this to 25 mg daily. Continue spironolactone for now. Assessment & Plan (04/30/2023 5:31 PM CRANE CREW SUPERVISOR): Chronic. Blood pressure is very tightly controlled in office today. We will need to monitor. May be able to decrease losartan in the future Assessment & Plan (10/28/2022 7:10 PM CDT): Chronic. Blood pressure controlled. Continue prescription medication Resolved Problems Problem Noted Date Diagnosed Date Resolved Date Ischemia of toe 07/18/2022 10/28/2022 Assessment & Plan (07/18/2022 2:31 PM CDT): Patient likely has microvascular disease as suggested by the vascular surgeon. The large vessels in the foot and ankle are intact. Third and to a lesser extent 2nd toes have ongoing changes that would be consistent with possible microvascular disease with a nonhealing eschar scab. It has been biopsied there was no evidence of squamous cell carcinoma. The patient may not be able to salvage the toes and would recommend evaluation by our foot and ankle specialist Dr. Mosquera BMI 23.0-23.9, adult 06/04/2022 023 Assessment & Plan (06/04/2022 4:12 PM CDT): BMI is acceptable for this patient. Discussed healthy diet and importance of regular physical activity (20- 30min/day, 150min/wk). Thyroid goiter 05/20/2022 09/26/2022 Goiter 04/05/2022 10/28/2022 Overview (04/05/2022): Added automatically from request for surgery [id number] Exposure of implanted vaginal mesh 11/20/2021 04/08/2022 Overview (11/20/2021): Added automatically from request for surgery [id number] Radiculopathy, lumbosacral region 05/09/2021 04/08/2022 Other obesity due to excess calories 05/09/2021 04/08/2022 Gastroesophageal reflux disease 01/28/2021 04/08/2022 Lymphadenopathy 01/28/2021 04/08/2022 Mild chronic obstructive pulmonary disease 01/28/2021 10/28/2022 Encounter to establish care 01/28/2021 04/08/2022 Assessment & Plan (01/28/2021 2:15 PM CRANE CREW SUPERVISOR): A visit to establish care has been performed today. Flor Gallego is not up to date on screening tests. She is in need of Mammogram, Lung cancer screen and hepatitis c screen- these have been ordered. She is up to date on needed preventative vaccinations. 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 She is having increasing trouble swallowing and her work up for non-thyroid ENT causes has been normal. We reviewed treatment options. She has not done well with MMI treatment in the past due to widely fluctuating levels. I-131 ablation will not help with compressive symptoms. She is interested in thyroidectomy which would resolve compressive symptoms and hyperthyroidism. She understands that this will require lifelong supplementation with levothyroxine postop. Will refer to surgery for evaluation. Hyperthyroidism 01/09/2017 06/04/2022 Assessment & Plan (02/12/2021 12:45 PM CRANE CREW SUPERVISOR): Risk of cardiac arrhythmias with discussed. The patient is following with cardiology Bone density also requested due to the risk of bone density loss in patient with subclinical hyperthyroidism Assessment & Plan (02/06/2017 4:43 PM CRANE CREW SUPERVISOR): Check TFT's Treat as indicated Assessment & Plan (01/09/2017 4:27 PM CDT): Long standing, related to MNG Repeat TFT's Recommendations to follow Most likely will watch without specific intervention. Multinodular goiter (nontoxic) 01/09/2017 09/26/2022 Assessment & Plan (02/12/2021 12:55 PM CRANE CREW SUPERVISOR): With FNA showing follicular lesion of unknown significance. With Afirma molecular testing, negative.less than 4 % change of malignancy. Will repeat thyroid ultrasound if not changes will continue monitoring Assessment & Plan (02/06/2017 4:42 PM CRANE CREW SUPERVISOR): Differential diagnosis would include benign nodule (macrofollicular or adenomatoid/hyperplastic nodules, colloid adenomas, nodular goiter, and Tea's thyroiditis) vs thyroid carcinoma ( follicular , papillary ) FNA indicated and performed,on two right, lateral nodules. Assessment & Plan (01/09/2017 4:26 PM CDT): Multiple, bilateral nodules, some solid, over 1 cm in size ( see report ) Will request thyroid uptake and scan If cold areas, will FNA. Knee pain 11/06/2012 04/08/2022 Nicotine dependence, unspeci fied, uncomplicated 07/24/2009 04/08/2022 Abnormal results of kidney function studies 07/21/2009 04/08/2022 Palpitations 07/21/2009 04/08/2022 Hypertensive disorder 07/21/20092022 Encounters Date Type Department Care Team Description 05/04/2024 Telephone [facility] Medical Group Diabetes and Endocrinology [address] [place] [phone] Mariam Shah, GROMMET WORKER Test Results (Labs) 03/09/2024 Orders Only [facility] Health Information Management [address] [place] [id number] Scanning, Provider 02/11/2024 Telephone [facility] Medical [facility] Diabetes and Endocrinology [address] [place] [phone] Mariam Shah, GROMMET WORKER Test Results (Labs) from Last 3 Months Immunizations Name Administration Dates Next Due Influenza, Quadrivalent, Sadia l Culture-based MDCK, Preservative Free, Antibiotic Free, Intramuscular 05/01/2022 Influenza, Quadrivalent, Split, Intramuscular Influenza, Quadrivalent, Spl it, Preservative Free, Intramuscular 05/13/2023,01/24/2021 Amoobi SARS-CoV-2 Monovalent Vaccination (12+ Yrs) PURPLE 09/09/2020,08/19/2020 Pneumococcal Conjugate Pcv20 05/13/2023 RSV Vaccine, Pref, Recombina nt, Subunit, Adjuvanted, PF, IM (Arexvy) 05/13/2023 Tdap 05/13/2023,01/11/2020 ZOSTER LIVE 01/24/2021 ZOSTER Recombinant 03/30/2021,01/24/2021 Surgical History Surgery Date Site/Laterality Comments NECK SURGERY 03/24/2001 - 03/23/2002 CORRECTION HAMMER TOE 03/24/2001 - 03/23/2002 ORAL SURGERY 03/24/2014 - 03/23/2015 biopsy- negative HYSTERECTOMY 03/24/2013 - 03/23/2014 supracervical hysterectomy LAPAROSCOPIC CHOLECYSTECTOMY 03/24/2001 - 03/23/2002 DILATION AND CURETTAGE OF UTERUS 03/24/2009 - 03/23/2010 w/ polypectomy SKIN SURGERY 03/24/2012 - 03/23/2013 chin; adi intradermal melanocytic nevus SKIN SURGERY 03/24/2012 - 03/23/2013 back; atypical melanocytic lesion POSTERIOR CRUCIATE LIGAMENT REPAIR 03/24/2012 - 03/23/2013 graft SINUS SURGERY 03/24/2013 - 03/23/2014 cautery; removal scar tissue COLONOSCOPY W/ BIOPSIES AND POLYPECTOMY 09/18/2016 BIOPSY 03/24/2016 - 03/23/2017 FNA thyroid SLEEVE GASTROPLASTY 03/24/2020 - 03/23/2021 TOTAL HIP ARTHROPLASTY 01/03/2021 Right VAGINA SURGERY 03/24/2019 - 03/23/2020 tension-free vaginal tape procedure CHOLECYSTECTOMY 03/24/1989 - 03/23/1990 CARPAL TUNNEL RELEASE 11/22/2021 - 12/21/2021 Right KNEE ARTHROSCOPY W/ LATERAL RELEASE 5 knee COLON SURGERY every few years colonoscopy SMALL INTESTINE SURGERY 06/23/2020 Duodal switch (90% of stomach and half fo the small intestine removed) TUBAL LIGATION 03/24/1982 - 03/23/1983 BARIATRIC SURGERY 06/23/2020 BLADDER SURGERY 03/24/2019 - 03/23/2020 ABDOMINAL SURGERY 06/23/2020 06/23/2020 hernia repair during bariatric surgery. LUMBAR FUSION 03/24/2004 - 03/23/2005 BLADDER SUSPENSION 03/24/2022 - 03/23/2023 EYE SURGERY Cataract. R was done on 04/21/2023. L was done on 02/06/2023. FOOT SURGERY Left 2022 Medical History Medical History Date Comments Depression Asthma DDD (degenerative disc disea se), lumbar Hypertension High cholesterol Tea's thyroiditis 02/20/2017 Multinodular goiter (nontoxic) 01/09/2017 Vitamin D insufficiency 10/06/2018 Pachyderma of larynx 06/26/2017 resolved Gastroesophageal reflux disease 01/28/2021 Iron metabolism disorder 10/06/2018 Primary fibromyalgia syndrome 01/28/2021 Tobacco dependence in remission 01/28/2021 Osteoporosis COPD (chronic obstructive pu lmonary disease) ([facility]) Glaucoma Migraines Anxiety Cataract Just starting Cervical radiculopathy 01/28/2021 Exposure of implanted vagina l mesh ([facility]) 11/20/2021 [facility] [id number] Chronic low back pain Restless leg Erythrocytosis 03/09/2020 secondary erythr ocytosis Jak2 - saw Heme Goiter 04/05/2022 Added harley silva from request for surgery [id number] Coronary artery calcificatio n seen on CAT scan 10/28/2022 Family History Medical History Relation Name Comments Alcohol abuse Father Elmo Smyth Early Father Elmo Smyth Heart attack Father Elmo Smyth Heart disease Father Elmo Smyth COPD Maternal Grandfather Issa Simpson Diabetes Maternal Grandfather Issa Simpson Cancer Maternal Grandmother Pamella Jung Colon cancer Maternal Grandmother Pamella Jung Obesity Maternal Grandmother Pamella Jung Arthritis Mother Phoebe [place] COPD Mother Phoebe Allison [place] Cancer Mother Phoebe Allison [place] Lung cancer Mother Phoebe Allison [place] Obesity Mother Phoebe Allison [place] Osteoporosis Mother Phoebe Allison [place] Atrial fibrillation Sister 1 Heart disease Sister 1 Lung cancer Sister 1 Stroke Sister 2 Cailin Weathers Alcohol abuse Sister 3 Kendal Y Smyth Depression Sister 3 Kendal Y Smyth Ovarian cancer Sister 3 Kendal Y Smyth Alcohol abuse Son 1 Alireza A Funez Allergy (severe) Son 2 Booker Funez Jr Anesthesia problems Neg Hx Relation Name Status Comments Father Elmo Smyth Maternal Grandfather Issa Simpson Maternal Grandmother Pamella Jung Mother Phoebe [place] Paternal Grandfather Paternal Grandmother Sister 1 Sister 2 Cailin Weathers Sister 3 Kendal Y Smyth Son 1 Alireza A Funez Son 2 Booker Funez Jr Social History Tobacco Use Types Packs/Day Years Used Date Smoking Tobacco: Former Cigarettes 2 38.3 0 03/25/1970 - 07/09/2008 Passive Smoke Exposure: Past Smokeless Tobacco: Never Tobacco Cessation:Counseling Given: Not Answered Alcohol Use Standard Drinks/Week Comments No 0 (1 standard drink = 0.6 oz pur e alcohol) AUDIT-C Answer Date Recorded Q1: How often do you have a drink containing alcohol? Never 10/30/2023 Q2: How many drinks containi ng alcohol do you have on a typical day when you are drinking? Patient does not drink Q3: How often do you have si x or more drinks on one occasion? Never 10/30/2023 PHQ-2 Answer Date Recorded PHQ-2 Total Score (If total score is 3 or more points, staff should administer the PHQ-9) 0 04/30/2023 Personal Safety Answer Date Recorded Have you ever been in or are you currently in a harmful physical or emotional relationship or is someone making you feel afraid or unsafe? Denies 10/07/2022 Comments No Sex and Gender Information Value Date Recorded Sex Assigned at Not on file Legal Sex Female 7:24 PM CRANE CREW SUPERVISOR Gender Identity Female 02/08/2020 5:48 PM CRANE CREW SUPERVISOR Sexual Orientation Straight 02/08/2020 5: 48 PM CRANE CREW SUPERVISOR Obstetrics History Para Term AB IAB SAB Ectopic Multiple Livin g Live Births 3 2 1 1 1 1 2 2 Date Outcome GA Total Labor Labor/2nd/3rd Weight Sex Type Anes PTL Latia A1 A5 Name Clin Term Vag-S pont Living SAB Vag-S pont Living Last Filed Vital Signs Vital Sign Reading Time Taken Comments Blood Pressure 110/62 10/30/2023 2:58 PM CDT Pulse 95 10/30/2023 2:58 PM CDT Temperature 36.9 C (98.5 F) 10/30/2023 2:58 PM CDT Respiratory Rate 16 10/30/2023 2:58 PM CDT Oxygen Saturation 97% 10/30/2023 2:58 PM CDT Inhaled Oxygen Concentration - - Weight 73.9 kg (163 lb) 12/26/2023 8:47 AM CDT Height 162.6 cm (5' 4.02 ) 12/26/2023 8:47 AM CD T Body Mass Index 27.96 12/26/2023 8:47 AM CDT Plan of Treatment Health Maintenance Due Date Last Done Comments Hepatitis B Screening 09/17/1979 Colon Cancer Screening-Colonoscopy 09/19/2019 09/18/2016 Covid-19 Vaccine (2023-2 5 season) 2023 05/13/2023, 05/01/2022, 03/30/2021, Additional history exists Influenza Vaccine (#1) 2023 , 05/01/2022, 01/24/2021, Additional history exists Depression Screening 04/30/2024 04/30/2023, 04/08/2022, 01/24/2021, Additional history exists Regular Well Visit/Exam 18-64 04/30/2024 04/30/2023 Breast Cancer Screening-Mammogram 10/30/2024 10/31/2023, 06/26/2023, 06/18/2022 DTaP/Tdap/Td Vaccine (3 - Td or Tdap) 05/13/2033 05/13/2023, 01/11/2020 Colon Cancer Screening-CT Colonography Discontinued 09/18/2016 Colon Cancer Screening-DNA Stool Discontinued 09/19/19 Colon Cancer Screening-FIT Discontinued 09/18/2016 Colon Cancer Screening-Sigmoidoscopy Discontinued 09/18/2016 Zoster Vaccine Completed 03/30/2021, 05/2020, 01/24/2021 Hepatitis C Screening Completed 04/06/2023, 024 Pneumococcal vaccine <65 Completed 05/13/2023 Medical Devices Implanted Type Area Cloth Checker Device Identifier Shelf Expiration Date Model / Serial / Lot Ethicon Endo Surgery Tvt Prolene 45x1.1cm Tape Mesh Transvaginal Blue [id number] - [id number] Implanted:Qty: 1 on 05/29/2022 by Aura Driscoll MD at [facility] Mesh N/A: Urethra Ethicon Endo Surgery [id number] 11/21/2024 [id number] / / [email or web address] [employer] Sls-Clip Ligate Triangular Wire Kathleen Groove Small Chevron Clip Latex Free [id number] - [id number] Implanted:Qty: 2 on 05/20/2022 by Sameer Alan MD at [facility] [employer] [id number] / / [email or web address] [employer] Sls-Clip Ligate Triangular Wire Kathleen Groove Small Chevron Clip Latex Free [id number] - [id number] Implanted:Qty: 2 on 05/20/2022 [facility] [id number] / / Procedures Procedure Name Priority Date/Time Associated Diagnosis Comments TSH Routine 04/21/2024 11:58 AM CRANE CREW SUPERVISOR Postoperative hypothyroidism T4, FREE Routine 04/21/2024 11:58 AM CRANE CREW SUPERVISOR Postoperative hypothyroidism SCAN - RADIOLOGY/IMAGING 03/09/2024 MAMMOGRAPHY Routine 10/31/2023 2:52 PM CDT HEPATITIS C SCREENING Routine 04/06/2023 COLONOSCOPY Routine 09/18/2016 from Last 3 Months or Most Recently Relevant to Health Maintenance Results * TSH (04/21/2024 11:58 AM CRANE CREW SUPERVISOR) TSH 0.800 0.450 - 4.500 uIU/mL [facility] - 01 Blood 04/21/2024 11:5 8 AM CRANE CREW SUPERVISOR 04/21/2024 Narrative [facility] - 04/22/2024 9:10 AM CRANE CREW SUPERVISOR Performed at: [facility] [id number] [place] Consultant: Jack Winslow PhD, Phone: [phone] us Mariam Shah GROMMET WORKER LAB BLOOD ORDERABLES Armida l Result Performing Organization Address [facility] Co de Phone Number [facility] - * T4, free (04/21/2024 11:58 AM CRANE CREW SUPERVISOR) T4,Free(Direct) 1.43 0.82 - 1.77 ng/dL [facility] - 01 Blood 04/21/2024 11:5 8 AM CRANE CREW SUPERVISOR 04/21/2024 Narrative [facility] - 04/22/2024 9:10 AM CRANE CREW SUPERVISOR Performed at: [facility] [id number] [place] Consultant: Jack Winslow PhD, Phone: [phone] us Mariam Shah GROMMET WORKER LAB BLOOD ORDERABLES Armida l Result Performing Organization Address [facility] Co de Phone Number [facility] - 01 * SCAN - RADIOLOGY/IMAGING (03/09/2024) Anatomical Region Laterality Modality Other us Provider Scanning Final Result * MAMMOGRAPHY (10/31/2023 2:52 PM CDT) Mammography Normal Historical Provider HEALTH MAINTENANCE Final Result * HEPATITIS C SCREENING (04/06/2023) SCRIBED HCV ab nonreactive Comment:Patient had checked through GI. She showed me a copy of the results through her [employer] garcia Historical Provider HEALTH MAINTENANCE Final Result * Colonoscopy (09/18/2016) Anatomical Region Laterality Modality Other Narrative 09/18/2016 Polypectomy; repeat in 3 years Historical Provider ENDOSCOPY PROCEDURES Armida l Result from Last 3 Months or Most Recently Relevant to Health Maintenance Insurance MEDICARE SOLUTIONS IDFL MEDICARE SOLUTIONS MEDICARE SOLUTIONS IDPA Advance Directives For more information, please contact: [phone] * Full Code (Latest Code Status on File) Date Activated Date Inactivated Comments 05/20/2022 3:24 PM 05/21/2022 2:16 PM * Full Code Date Activated Date Inactivated Comments 02/12/2022 11:40 AM 02/12/2022 6:05 PM Care Teams Loan Documents Closer Relationship Specialty Start Date End Date Mary Diaz MD [address] [place] [address] PCP - General Family Practice 04/05/22 Minerva Serna MD [address] [address] Consulting Physician Gastroenterology 01/28/21 Alfie Vegas MD [address] [address] Consulting Physician Hematology 01/28/21 Toni Cintron MD [address] [place] [address] Consulting Physician Obstetrics and Gynecology 01/28/21 Brendan Thomas DPM [address] [place] [address] Consulting Physician Foot and Ankle Surg 01/28/21 Vivi Wood CNM [address] [place] [address] Nurse Practitioner Psychiatry 04/08/22 Tahmina Marvin MD [address] [facility] [address] [place] [address] Referring Physician Pain Management 04/08/22 Cristofer Alicia MD [address] [place] [phone] Referring Physician Neurosurgery 04/08/22 [place] [address] [facility] [address] [place] [address] Consulting Physician Endocrinology Diabetes & Metabolism 04/08/22 Roberto Carlos Fregoso MD [address] [facility] [place] [address] Referring Physician Otolaryngology 04/08/22 García Siddiqui DO 9 [facility] [place] [address] Referring Physician Surgery 04/08/22 Ana Delarosa MD [address] [place] [address] Consulting Physician Sleep Medicine 04/08/22 [place] [address] [place] [address] Surgeon Orthopedic Surgery 04/08/22 [place] [address] [place] [address] Referring Physician Orthopedic Surgery 04/08/22 [place] [address] [facility] [address] [place] [address] Consulting Physician Cardiology 04/08/22
--- OUTSIDE RECORDS SUMMARY | 2024-05-08 13:04 | XMS_ITS ---
Author Organization [facility] Address [address] [place] [address] Care Team Providers Care Claims Analyst Name Role Phone Josefina Maharaj Unavailable [phone] Encounters Encounter Location Date Provider Diagnosis Critical access hospital [address] [place] [address] 01/08/2023 Josefina Maharaj Plan Of Treatment No Information Progress Notes * JULIENNEBARRINGTON KathrynnellyDOB:[birth year] (63 yo F)Acc No.[id number]:01/08/2023 Progress Notes Patient: Flor MARCELINO Provider: SRAVAN Hernandez :1960 A ge:62 Y S ex:Female Date:01/08/2023 Address:[address] [place], [place] [id number] Subjective: * Chief Complaints: * * Medical History: Objective: * Vitals: Assessment: Plan: * Treatment: * Billing Information: * Visit Code: * Procedure Codes: * Electronic signature of SRAVAN Nelson on 05/08/2024 at 01:04 PM [employer] Sign off status: Pending * Provider: SRAVAN Hernandez Date: Generated for Pura nieves/Bette/eTransmitting on: 0 05/08/2024 01:04 PM [employer]
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
--- OUTSIDE RECORDS SUMMARY | 2024-05-08 13:05 | XMS_ITS | Encounter Summary ---
Author Organization [facility] Address [address] [facility] [place] [address] Phone Care Team Providers Care Weight Control Lecturer Name Role Phone Mary Diaz MD Primary Care Provider [phone] Reason for Referral * Radiology Services (Routine) - Closed Specialty Diagnoses / Procedures Referred By Victor Hugo nobles Referred To Contact Radiology Diagnoses Metatarsalgia Hammertoe of left foot Pre-op testing Procedures EKG 12 LEAD Yamilex Beyer DPM Phone: tel: fax: Referral ID Status Reason Start Date Expiration Date Visits Re quested Visits Authorized [id number] Closed 10/30/2022 1 1 Encounter Details Date Type Department Care Team (Latest Contact Info) Description 10/30/2022 Transcribe Orders [facility] Preop/Pacu II [address] [place] [address] Yamilex Beyer DPM [address] [place] [address] Metatarsalgia (Primary Dx); Hammertoe of left foot; Pre-op testing Social History Tobacco Use Types Packs/Day Years Used Date Smoking Tobacco: Former Cigarettes 3 37 Smokeless Tobacco: Never Alcohol Use Standard Drinks/Week Comments No 0 (1 standard drink = 0.6 oz pur e alcohol) Comments No Sex and Gender Information Value Date Recorded Sex Assigned at Female 05/07/2023 5:26 AM MGMT CONSULTANT Legal Sex Female 12:08 AM CDT Gender Identity Female 05/07/2023 5:26 AM MGMT CONSULTANT Sexual Orientation Straight 05/07/2023 5: 26 AM MGMT CONSULTANT 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 Not on file Not on file documented as of this encounter Plan of Treatment Not on file documented as of this encounter Results * EKG 12 LEAD (11/11/2022 2:45 PM CDT) Ventricular Rate 63 BPM EXTERNAL EKG Atrial Rate 63 BPM EXTERNAL EKG P-R Interval 134 ms EXTERNAL EKG QRS Duration 92 ms EXTERNAL EKG Q-T Duration 430 ms EXTERNAL EKG QTC CALCULATION 440 ms EXTERNAL EKG P Dyess 2 degrees EXTERNAL EKG R Dyess 79 degrees EXTERNAL EKG T Dyess 75 degrees EXTERNAL EKG 11/11/2022 2:45 PM CDT Impressions EXTERNAL EKG - 11/14/2022 1:12 PM CDT Normal sinus rhythm Normal ECG No previous ECGs available Confirmed by Freddy Beaulieu ([id number]) on 11/14/2022 1:12:12 PM Narrative Procedure Note Freddy Witt MD - 11/14/2022 IMPRESSION: Normal sinus rhythm Normal ECG No previous ECGs available Confirmed by Freddy Beaulieu ([id number]) on 11/14/2022 1:12:12 PM us Yamilex Beyer DPM IMG ECG ORDERABLES Final Res ult EXTERNAL EKG * (ABNORMAL) BASIC METABOLIC PANEL W/ CALCIUM TOTAL (11/11/2022 2:39 PM CDT) SODIUM 145 136 - 145 mmol/L 11/11/2022 5:08 PM CDT [facility] POTASSIUM 2.9(L) 3.5 - 5.1 mmol/L 11/11/2022 5:08 PM CDT [facility] CHLORIDE 103 98 - 107 mmol/L 11/11/2022 5:08 PM CDT [facility] CO2, VENOUS 30 22 - 30 mmol/L 11/11/2022 5:08 PM CDT [facility] ANION GAP 14.9 <18.0 mmol/L 11/11/2022 5:08 PM CDT [facility] GLUCOSE 77 70 - 99 mg/dL 11/11/2022 5:08 PM CDT [facility] BUN 9(L) 10 - 20 mg/dL 11/11/2022 5:08 PM CDT [facility] CREATININE, BLOOD 0.68 0.60 - 1.00 mg/dL 11/11/2022 5:08 PM CDT [facility] BUN/CREATININE RATIO 13 12 - 20 ratio 11/11/2022 5:08 PM CDT [facility] CALCIUM 9.1 8.7 - 10.5 mg/dL 11/11/2022 5:08 PM CDT [facility] IS THE PATIENT REQUIRED TO BE FASTING? No 11/11/2022 5:08 PM CDT [facility] GFR, ESTIMATED >60 >=60 11/11/2022 5:08 PM T [facility] Comment: Creatinine Clearance is the preferred criteria for selecting drug dose adjustments in renally impaired patients. The GFR is provided as additional pertinent clinical information. GFR is reported in mL/min/1.73 sq m. Calculation based on the Chronic Kidney Disease Epidemiology Collaboration (CKD- EPI) equation refit without adjustment for race. GFR, EST. >60 >=60 023 5:08 PM CDT [facility] GFR, EST. NONAFRICAN >60 >=60 11/11/2022 5:08 PM CDT [facility] Blood Venipuncture / Unknown 11/11/2022 2:39 PM CDT 11/11/2022 4:38 PM CDT us Yamilex Beyer DPM CHEMISTRY ORDERABLES Final R esult [facility] [address] [place] [address] documented in this encounter Visit Diagnoses Diagnosis Metatarsalgia- Primary Enthesopathy of ankle and tarsus, unspecified Hammertoe of left foot Pre-op testing Preoperative examination, unspecified Metatarsalgia Enthesopathy of ankle and tarsus, unspecified Hammertoe of left foot Pre-op testing Preoperative examination, unspecified documented in this encounter Care Teams Weight Control Lecturer Relationship Specialty Start Date End Date Mary Diaz MD [address] [place] [address] DR VARMA [address] [place] [id number] PCP - General Family Medicine 06/30/22 documented as of this encounter
--- OUTSIDE RECORDS SUMMARY | 2024-05-08 13:05 | XMS_ITS | Clinical Summary ---
Author Organization [facility] [place] Address [address] [place] [address] Care Team Providers Care Mill Operator Head Name Role Phone Slick Quispe MD Primary Care Provider Source Comments [facility] [place],non-owned Affiliates and Associated Physician Practices is amultiple site organization consisting of ambulatory clinics and hospital sitesin [place], [place], [place] and [place]. This disclosure is being madepursuant to the Care Everywhere program and may not contain all information available regarding this patient. Last updated 17.[facility] [place] Allergies No known active allergies Medications * Be aware that medications may not be up to date on this document. Alwaysverify current medications with the patient. Medication Sig Dispensed Refills Start Date End Date Status albuterol (PROVENTIL;VENTOLI N) (2.5 MG/3ML) 0.083% nebulizer solution albuterol sulfate 2.5 mg/3 mL (0.083 %) solution for nebulization USE 2 VIALS IN NEBULIZER Q 6 H UTD Active Thiamine HCl (B-1 PO) Take 100 mg by mouth once daily Active Multiple Vitamins-Minerals (BARIATRIC MULTIVITAMINS/IRON PO) Take by mouth once daily Active CALCIUM CITRATE PO Take by mouth once daily Active Nutritional Supplements (EQUATE PO) Take 50 mg by mouth once daily Active losartan (Cozaar) 25 MG tablet Take 25 mg by mouth once daily Active rOPINIRole (Requip) 3 MG tablet Take 3 mg by mouth once daily Active azelastine (Astelin) 0.1 % nasal spray azelastine 137 mcg (0.1 %) nasal spray aerosol USE 1 SPRAY IN EACH NOSTRIL EVERY 12 HOURS Activ e budesonide (Pulmicort) 1 MG/2ML nebulizer suspension Active budesonide-formote rol (Symbicort) 160-4.5 MCG/ACT inhaler Symbicort 160 mcg-4.5 mcg/actuation HFA aerosol inhaler Inhale 2 puffs twice a day by inhalation route. Active potassium chloride ER (Klor-Con M) 20 MEQ tablet Take 40 mEq by mouth as needed 08/28/2020 Active pantoprazole EC (Protonix) 40 MG tablet 07/19/2021 Active omeprazole (PriLOSEC) 40 MG capsule omeprazole 40 mg capsule,delayed release TAKE 1 CAPSULE BY MOUTH EVERY DAY BEFORE BREAKFAST Active naloxone HCl (Narcan) 4 MG/0.1ML nasal spray CALL 911. SPR CONTENTS OF ONE SPRAYER (0.1ML) INTO ONE NOSTRIL. REPEAT IN 2-3 MIN IF SYMPTOMS OF OPIOID EMERGENCY PERSIST, ALTERNATE NOSTRILS 06/25/2021 Active estradiol (Estrace) 0.1 MG/GM vaginal cream Active DULoxetine (Cymbalta) 60 MG capsule duloxetine 60 mg capsule,delayed release TK 1 C PO QD Active cyclobenzaprine (Flexeril) 10 MG tablet cyclobenzaprine 10 mg tablet Active gabapentin (Neurontin) 100 MG capsule Take 100 mg by mouth at bedtime 10/30/2021 Active HYDROcodone-acetam inophen (Bighorn) 10-325 MG tablet Take 1 tablet by mouth every 6 hours as needed for Pain Active acetaminophen (Tylenol) 325 MG tablet Take 2 (two) tablets by mouth every 6 hours as needed for Fever or Pain Maximum allowable Acetaminophen amount = 4 Grams (4000 mg) / 24 hours. 0 12/27/2021 Active Additional Information Patient not taking.Reported on 03/11/2024 sertraline (Zoloft) 25 MG tablet Take 1 (one) tablet by mouth every morning Active Active Problems Problem Noted Date Diagnosed Date Cervical post-laminectomy syndrome 05/09/2021 Cervical radiculopathy 01/28/2021 Overview (08/06/2021): Last Assessment & Plan: Her pain management was covered by her neurologist will need new pain doctor (her neurologist is leaving the area at the end of the month) Depressive disorder 01/28/2021 Primary fibromyalgia syndrome 01/28/2021 Mild chronic obstructive pulmonary disease 01/28 Gastroesophageal reflux disease 01/28/2021 WILFRED (obstructive sleep apnea) 06/26/2017 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 Will recheck free T4 and free T3 As on a day stay normal, will continue to monitor. Asthma 07/21/2009 Hyperlipidemia 07/21/2009 Hypertension 07/21/2009 Lumbar radiculopathy Carpal tunnel syndrome of right wrist Encounters Date Type Department Care Team Description 03/11/2024 Travel from Last 3 Months Social History Tobacco Use Types Packs/Day Years Used Date Smoking Tobacco: Former Cigarettes Smokeless Tobacco: Never Alcohol Use Standard Drinks/Week Comments Never 0 (1 standard drink = 0.6 oz pur e alcohol) Sex and Gender Information Value Date Recorded Sex Assigned at Female 05/20/2022 6:45 PM [employer] Gender Identity Female 05/20/2022 6:45 PM [employer] Sexual Orientation Straight 05/20/2022 6: 45 PM [employer] Last Filed Vital Signs Vital Sign Reading Time Taken Comments Blood Pressure 153/66 02/18/2022 9:00 AM [employer] Pulse 66 02/18/2022 9:00 AM [employer] Temperature 37 C (98.6 F) 02/18/2022 9:00 AM [employer] Respiratory Rate 18 01/16/2022 9:22 AM CDT Oxygen Saturation 98% 02/18/2022 9:00 AM [employer] Inhaled Oxygen Concentration - - Weight 72.6 kg (160 lb) 03/11/2024 9:26 AM [employer] Height 162.6 cm (5' 4 ) 03/11/2024 9:26 AM [employer] Body Mass Index 27.46 03/11/2024 9:26 AM [employer] Plan of Treatment Health Maintenance Due Date Last Done Comments COLOGUARD (AGES 45-75) - COL ON CA SCREENING 1961 COLON MONITORING 1961 COLONOSCOPY - COLON CA SCREENING 1961 CT COLONOGRAPHY - COLON CA SCREENING 1961 Colorectal Cancer Screening 1961 FIT - COLON CA SCREENING 1961 FLEX SIG - COLON CA SCREENING 1961 LIPID TESTING 1961 PAP SMEAR 1961 HIV SCREENING 1976 HEPATITIS C SCREENING 09/12/1979 DTAP/TDAP/TD VACCINES (1 - Tdap) 1980 PNEUMOCOCCAL VACCINE 50+ (1 of 2 - PCV) 1980 ZOSTER VACCINE (1 of 2) 09/17/2011 Respiratory Syncytial Virus (RSV) Vaccine Pt: or over 60 yrs (1 - Risk 60-74 years 1-dose series) 2021 COVID-19 VACCINE (3 - 2023-2 5 season) 2023 09/09/2020, 08/19/2020 INFLUENZA VACCINE (#1) 2023 01/11/2020 DEPRESSION SCREENING 03/24/2024 MEDICARE AWV CALENDAR YEAR 2024 MAMMOGRAM 06/18/2024 06/18/2022 HEPATITIS B VACCINE Aged Out No longe r eligible based on patient's age to complete this topic HIB VACCINE Aged Out No longer eligi ble based on patient's age to complete this topic HPV VACCINE Aged Out No longer eligi ble based on patient's age to complete this topic MENINGOCOCCAL (Group B) VACCINE Aged Out No longer eligible b ased on patient's age to complete this topic MENINGOCOCCAL VACCINE Aged Out No gloria guillermo eligible based on patient's age to complete this topic Procedures Procedure Name Priority Date/Time Associated Diagnosis Comments MAMMOGRAM 06/18/2022 from Last 3 Months or Most Recently Relevant to Health Maintenance Results * MAMMOGRAM (06/18/2022) Anatomical Region Laterality Modality Other 06/18/2022 Narrative 06/18/2022 Ordered by an unspecified provider. Scanned Document SCANNING ONLY from Last 3 Months or Most Recently Relevant to Health Maintenance Care Teams Mill Operator Head Relationship Specialty Start Date End Date Slick Quispe MD [address] [place] [id number] PCP - General 08/02/21
--- OUTSIDE RECORDS SUMMARY | 2024-05-08 13:05 | XMS_ITS | Data Portability ---
Author Organization [facility] [employer], Main Office Address [address] [place] [address] Assessment No assessment recorded. Plan of Treatment Reminders Order Date Submit Date Provider Last Modified By Organization Details Last Modified Time Details Appointments None recorded. Lab ceruloplasm in, serum [address] (Lab), [address] [place], [address], 12:03:52 mitochondri al Ab, serum [address] (Lab), [address] [place], [address], 4 12:03:57 smooth muscle Ab, serum [address] (Lab), [address] [place], [address], 4 12:04:02 HBsAg (hepatitis B surface Ag), serum [address] (Lab), [address] [place], [address], 4 12:04:07 hepatitis C RNA, qualitative , serum [address] (Lab), [address] [place], [address], 4 12:04:12 Referral None recorded. Procedures None recorded. Surgeries None recorded. Imaging None recorded. Medication Orders None recorded. Patient TargetsNo targets recorded. Patient Instructions Encounter Date Encounter Id Patient Instructions Last Modified By Organization Details Last Modified Time 04/09/2023 [id number] PT WITH ELEVATED LIVER ENZYMES . SX ARE MOST LIKELY B/C STATIN MED . CHECK LIVER MARKERS . F/U IN 4 WEEKS . [email or web address] Not available 04/09/2023 16:06:57 Reason for Referral None Reported. Results Created Date Observation Date Name Description Value Unit Range Abnormal Flag Note LastModifiedBy Organization Detail LastModifiedTime Result Notes None recorded. Problems Name Problem SNOMED Code Status Onset Date Resolution Date Notes Provider Name and Address Organization Details Recorded Time Chronic obstructiv e pulmonary disease 54173673 Active Not Available [facility] 3 07:29:57 Non-toxic nodular goiter 157186857 Active 2016 Not Available [facility] 3 07:29:57 Tobacco dependence in remission 083458466 Active Not Available [facility] 3 07:29:57 Asthma 313173949 Active Not Available [facility] 3 07:29:57 Localized, primary osteoarthr itis of the pelvic region and thigh 047386023 Active Not Available [facility] 3 07:29:57 Gastroesop hageal reflux disease 948276663 Active Not Available [facility] 3 07:29:57 Gastroesop hageal reflux disease without esophagiti s 271775095 Active 2021 Not Available [facility] 3 07:29:57 History of emphysema 035542645378 73171 Active Not Available [facility] 3 07:29:57 Vaginal discharge 381537227 Active Not Available [facility] 3 07:29:57 Lymphadeno yazan 05058504 Active Not Available [facility] 3 07:29:57 Vaginitis 31226036 Active Not Available [facility] 3 07:29:58 Mild chronic obstructiv e pulmonary disease 477045866 Active Not Available [facility] 3 07:29:58 Bronchitis 79865584 Active Not Available [facility] 3 07:29:58 Depressive disorder 39682277 Active Not Available [facility] 3 07:29:58 Major depressive disorder 662244641 Active Not Available [facility] 3 07:29:58 Hypertensi ve disorder 23245929 Active Not Available [facility] 3 07:29:58 Osteoarthr itis 912145930 Active knee, pelvic and thigh Not Available [facility] 3 07:29:58 Subclinica l hyperthyro idism 438709660 Active 2016 Not Available [facility] 3 07:29:58 Hypokalemi a 33018486 Active Not Available [facility] 3 07:29:58 Migraine with aura 0716648 Active 2017 Not Available [facility] 3 07:29:58 Hoarse 79594312 Active Not Available [facility] 3 07:29:59 Hyperlipid emia 88584974 Active Not Available [facility] 3 07:29:59 Female stress incontinen ce 50863529 Active Not Available [facility] 3 07:29:59 Polyp of colon 10572898 Active 2016 Not Available [facility] 3 07:29:59 Degenerati on of interverte bral disc 63591592 Active Not Available [facility] 3 07:29:59 Obstructiv e sleep apnea syndrome 05248788 Active Not Available [facility] 3 07:29:59 Fatigue 22943310 Active Not Available [facility] 3 07:29:59 Thyrotoxic osis 45956664 Active 2016 Not Available [facility] 3 07:29:59 Primary fibromyalg ia syndrome 34044941 Active Not Available [facility] 3 07:30:00 Liver enzymes level above reference range 312207534 Active 4 Minerva Serna MD [address] [place] [address], [place] [address], [place], [address] , [facility] 4 16:01:54 Problem Notes None recorded. Procedures Surgical History Date Name Laterality Status Provider Name and Address Organization Details Recorded Time Gastric Bypass completed Not Available [facility] 05/22/2022 07:26:21 Imaging Results None recorded. Procedure Notes None recorded. Medical Equipment None Reported. Allergies Allergen ID Allergen Name Allergen Category Reaction Reaction Severity Criticality Documentation Date Start Date Code Code System Note Provider Name and Address Organization Details Recorded Time 25273 bacitraci n / neomycin / polymyxin B medicatio n itching rash moderate mild Not available 05/22/20222015 94227 9 RxNorm Not Available [facility] 3 07:34:24 66027 lisinopri l medicatio n Not available Not available Not available 05/22/2022 12546 RxNorm error not aller gic per pt Not Available [facility] 3 07:34:25 Medications Name Sig Start Date Stop Date Status Note LastModified by Organization Details LastModified Time cyclobenzap rine 10 mg tablet TAKE 1 TABLET BY MOUTH AT BEDTIME NEEDED 09/09 completed Not Available Not Available Not Available amoxicillin 500 mg capsule TAKE ONE CAPSULE BY MOUTH THREE TIMES DAILY FOR 7 DAYS 03/27 completed Not Available Not Available Not Available pilocarpine 5 mg tablet 03/27 completed Not Available Not Available Not Available nystatin 100,000 unit/mL oral suspension SWISH AND SWALLOW 5 ML BY MOUTH FOUR TIMES DAILY FOR 14 DAYS 09/05 completed Not Available Not Available Not Available prednisone 10 mg tablet TK 1 T PO Q DAY 03/27 completed Not Available Not Available Not Available atorvastati n 20 mg tablet Take 1 tablet every day by oral route at bedtime. 03/27 completed Not Available Not Available Not Available ropinirole 1 mg tablet 03/27 completed Not Available Not Available Not Available albuterol sulfate 2.5 mg/3 mL (0.083 %) solution for nebulizatio n USE 2 VIALS IN NEBULIZER Q 6 H UTD 03/27 completed Not Available Not Available Not Available citalopram 40 mg tablet Take 1 tablet every day by oral route. 03/27 completed Not Available Not Available Not Available triamcinolo ne acetonide 0.5 % topical cream APPLY TOPICALLY TO THE AFFECTED AREA TWICE DAILY FOR 1 WEEK 03/27 completed Not Available Not Available Not Available azithromyci n 250 mg tablet Take 2 TABLET EVERY DAY by oral route for 1 day. Than 1 tablet for 4 days 09/03 completed Not Available Not Available Not Available ibuprofen 800 mg tablet TAKE 1 TABLET BY MOUTH EVERY 6 TO 8 HOURS NEEDED 03/27 completed Not Available Not Available Not Available fluconazole 150 mg tablet TK 1 T PO D 09/17 completed Not Available Not Available Not Available benzonatate 200 mg capsule Take 1 capsule every day by oral route. 03/27 completed Not Available Not Available Not Available citalopram 10 mg tablet TAKE 1 TABLET BY MOUTH DAILY 03/27 completed Not Available Not Available Not Available valacyclovi r 1 gram tablet TAKE 1 TABLET BY MOUTH EVERY 8 HOURS FOR 7 DAYS 09/05 completed Not Available Not Available Not Available hydrocodone 5 mg-acetamin ophen 325 mg tablet TAKE ONE TABLET BY MOUTH EVERY 4-6 HOURS NEEDED 09/05 completed Not Available Not Available Not Available meloxicam 15 mg tablet TAKE 1 TABLET BY MOUTH EVERY DAY 09/05 completed Not Available Not Available Not Available metronidazo le 0.75 % (37.5 mg/5 gram) vaginal gel INSERT 1 APPLICATO RFUL VAGINALLY FOR 5 DAYS active Not Available Not Available No t Available famotidine 40 mg tablet Take 1 AT BEDTIME 03/27 completed Not Available Not Available Not Available prednisone 20 mg tablet TK 1 T PO BID 08/06 completed Not Available Not Available Not Available ropinirole 3 mg tablet TAKE 1 TABLET BY MOUTH EVERY NIGHT AT BEDTIME FOR RESTLESS LEG SYNDROME 09/09 completed Not Available Not Available Not Available sertraline 100 mg tablet TAKE 1 TABLET BY MOUTH EVERY DAY AT BEDTIME 09/09 completed Not Available Not Available Not Available prednisone 5 mg tablet TAKE 1 TABLET BY MOUTH DAILY IN THE MORNING 03/07 completed Not Available Not Available Not Available penicillin V potassium 500 mg tablet TK 1 T PO Q 6 HOURS TAT 08/06 completed Not Available Not Available Not Available phentermine 37.5 mg tablet TAKE 1 AND 1/2 TABLETS BY MOUTH DAILY active Not Available Not Available No t Available doxepin 10 mg capsule TAKE 1 CAPSULE BY MOUTH AT BEDTIME NEEDED 03/27 completed Not Available Not Available Not Available sulfamethox azole 800 mg-trimetho prim 160 mg tablet TK 1 T PO Q 12 H 08/06 completed Not Available Not Available Not Available hydrocodone 10 mg-acetamin ophen 325 mg tablet TAKE 1 TABLET BY MOUTH EVERY 6 HOURS NEEDED 09/09 completed Not Available Not Available Not Available omeprazole 40 mg capsule,del ayed release TAKE 1 CAPSULE BY MOUTH EVERY DAY BEFORE BREAKFAST 03/27 completed Not Available Not Available Not Available tramadol 50 mg tablet TAKE 1 TABLET BY MOUTH EVERY 8 HOURS NEEDED 03/27 completed Not Available Not Available Not Available amoxicillin 500 mg tablet TAKE 4 TABLETS BY MOUTH 1 HOUR BEFORE DENTAL WORK FOR 1 DAY 03/27 completed Not Available Not Available Not Available acyclovir 800 mg tablet TAKE 1 TABLET BY MOUTH FIVE TIMES DAILY FOR 7 DAYS 09/05 completed Not Available Not Available Not Available levothyroxi ne 25 mcg tablet TK 1 T PO QD 08/06 completed Not Available Not Available Not Available clobetasol 0.05 % topical gel APPLY THIN LAYER TOPICALLY TO THE AFFECTED AREA TWICE DAILY 03/27 completed Not Available Not Available Not Available dexamethaso ne 0.5 mg/5 mL oral solution SWISH AND SPIT 15 ML PO QID FOR 2 WEEKS. active Not Available Not Available No t Available citalopram 20 mg tablet TAKE 1 TABLET BY MOUTH EVERY DAY 02/11 completed Not Available Not Available Not Available potassium chloride ER 20 mEq tablet,exte nded release(par t/cryst) 03/27 completed Not Available Not Available Not Available meclizine 25 mg tablet TAKE 1 TABLET BY MOUTH THREE TIMES DAILY 09/05 completed Not Available Not Available Not Available potassium chloride 40 mEq/15 mL oral liquid TAKE 15 ML BY MOUTH ONCE DAILY FOR 10 DAYS 03/27 completed Not Available Not Available Not Available hydrocodone 7.5 mg-acetamin ophen 325 mg tablet TAKE 1 TABLET BY MOUTH EVERY FOUR HOURS NEEDED FOR PAIN FOR 7 DAYS 09/05 completed Not Available Not Available Not Available ropinirole 2 mg tablet TK 1 T PO NIGHTLY ALONG WITH A 0.5 MG T 04/14 completed Not Available Not Available Not Available cephalexin 500 mg capsule TK 1 C PO TID 06/13 /2022 completed Not Available Not Available Not Available pantoprazol e 40 mg tablet,jimenez yed release TAKE 1 TABLET BY MOUTH TWICE DAILY 03/07 completed Not Available Not Available Not Available oseltamivir 75 mg capsule TK ONE C PO BID 02/11 completed Not Available Not Available Not Available esomeprazol e magnesium 40 mg capsule,del ayed release TAKE 1 CAPSULE BY MOUTH EVERY DAY DIRECTED 03/27 completed Not Available Not Available Not Available triamcinolo ne acetonide 0.1 % topical ointment APPLY TOPICALLY TO THE AFFECTED AREA EVERY 12 HOURS NEEDED 03/27 completed Not Available Not Available Not Available ropinirole 0.5 mg tablet TAKE 1 TABLET BY MOUTH AT NIGHT 09/05 completed Not Available Not Available Not Available prednisone 50 mg tablet TAKE 1 TABLET BY MOUTH DAILY X 5 DAYS 09/05 completed Not Available Not Available Not Available promethazin e 25 mg tablet Take 1 tablet every 4 hours by oral route. 09/05 completed Not Available Not Available Not Available losartan 25 mg tablet TAKES DAILY 03/27 completed Not Available Not Available Not Available gabapentin 300 mg capsule TAKE 1 CAPSULE BY MOUTH EVERY 8 HOURS 03/27 completed Not Available Not Available Not Available sertraline 25 mg tablet TAKE 1 TABLET BY MOUTH EVERY NIGHT AT BEDTIME FOR 1 WEEK THEN TAKE 2 TABLETS BY MOUTH EVERY NIGHT AT BEDTIME 03/27 completed Not Available Not Available Not Available mupirocin 2 % topical ointment APPLY TOPICALLY TO THE AFFECTED AREA TWICE DAILY 03/27 completed Not Available Not Available Not Available furosemide 20 mg tablet TAKE 1 TABLET BY MOUTH EVERY DAY 03/27 completed Not Available Not Available Not Available gabapentin 100 mg capsule TAKE 1 CAPSULE BY MOUTH EVERY 8 HOURS 09/09 completed Not Available Not Available Not Available ergocalcife rol (vitamin D2) 1,250 mcg (50,000 unit) capsule TAKE 1 CAPSULE BY MOUTH EVERY WEEK 03/27 completed Not Available Not Available Not Available azelastine 137 mcg (0.1 %) nasal spray USE 1 SPRAY IN EACH NOSTRIL EVERY 12 HOURS 03/27 completed Not Available Not Available Not Available ibuprofen 600 mg tablet TAKE 1 TABLET BY MOUTH EVERY 6 HOURS NEEDED FOR MODERATE PAIN NOT RELIEVED WITH TYLENOL 03/27 completed Not Available Not Available Not Available levofloxaci n 500 mg tablet TK 1 T PO Q 24 H 03/27 completed Not Available Not Available Not Available estradiol 0.01% (0.1 mg/gram) vaginal cream INSERT 1 GRAM VAGINALLY 3 TIMES A WEEK 03/27 completed Not Available Not Available Not Available methylpredn isolone 4 mg tablets in a dose pack FOLLOW PACKAGE DIRECTION S 09/05 completed Not Available Not Available Not Available ipratropium bromide 42 mcg (0.06 %) nasal spray U 2 SPRAYS IEN D 02/11 completed Not Available Not Available Not Available losartan 100 mg tablet TAKE 1 TABLET BY MOUTH EVERY DAY 09/09 completed Not Available Not Available Not Available fluticasone propionate 50 mcg/actuati on nasal spray,suspe nsion SHAKE LIQUID AND USE 1 TO 2 SPRAYS IN EACH NOSTRIL TWICE DAILY 03/27 completed Not Available Not Available Not Available ipratropium bromide 21 mcg (0.03 %) nasal spray USE 2 SPRAYS IN EACH NOSTRIL THREE TIMES DAILY 09/09 completed Not Available Not Available Not Available naproxen 500 mg tablet TK 1 T PO BID WITH FOOD active Not Available Not Available No t Available amoxicillin 875 mg-potassiu m clavulanate 125 mg tablet TAKE 1 TABLET BY MOUTH TWICE DAILY 03/07 completed Not Available Not Available Not Available hydrocodone -acetaminop hen 325 mg-10 mg tablet 1 tablet every 4-6 hours by oral route. 2015 active Not Available Not Available Not Avai lable Sleep Aid (diphenhydr amine) 25 mg tablet Take 1 tablet as needed by oral route at bedtime. 09/05 completed Not Available Not Available Not Available Mucinex 600 mg tablet, extended release TK 1 T PO BID Q TWELVE H active Not Available Not Available No t Available duloxetine 30 mg capsule,del ayed release TAKE 1 CAPSULE BY MOUTH EVERY DAY 03/27 completed Not Available Not Available Not Available duloxetine 60 mg capsule,del ayed release active Not Available Not Available Not Available chlorhexidi ne gluconate 0.12 % mouthwash FPD 09/17 completed Not Available Not Available Not Available EpiPen 03/27 completed Not Available Not Available Not Available Robaxin 2014 active Not Available Not Available Not Avai lable Sleep Aid (diphenhydr amine) 03/03 completed Not Available Not Available Not Available ProAir HFA 90 mcg/actuati on aerosol inhaler INHALE TWO PUFFS BY MOUTH EVERY 4 HOURS NEEDED active Not Available Not Available No t Available Symbicort 160 mcg-4.5 mcg/actuati on HFA aerosol inhaler INHALE 2 PUFFS BY MOUTH TWICE DAILY 03/27 completed Not Available Not Available Not Available budesonide 1 mg/2 mL suspension for nebulizatio n Inhale 2 mL every day by nebulizat ion route. 03/27 completed Not Available Not Available Not Available Suprep Bowel Prep Kit 17.5 gram-3.13 gram-1.6 gram oral solution DIRECTED active Not Available Not Available No t Available EpiPen 2-Deven 0.3 mg/0.3 mL injection, auto-inject or INJECT INTRAMUSC ULARLY DIRECTED FOR ALLERGIC REACTION 04/14 completed Not Available Not Available Not Available Eliquis 2.5 mg tablet TAKE 1 TABLET BY MOUTH TWICE DAILY FOR 30 DAYS 03/27 completed Not Available Not Available Not Available Anoro Ellipta 62.5 mcg-25 mcg/actuati on powder for inhalation INHALE 1 PUFF BY MOUTH EVERY 24 HOURS 03/27 completed Not Available Not Available Not Available Flonase Allergy Relief 03/27 completed Not Available Not Available Not Available Breo Ellipta 200 mcg-25 mcg/dose powder for inhalation INL 1 PUFF PO QD 08/26 completed Not Available Not Available Not Available naloxone 4 mg/actuatio n nasal spray CALL 911. SPR CONTENTS OF ONE SPRAYER (0.1ML) INTO ONE NOSTRIL. REPEAT IN 2-3 MIN IF SYMPTOMS OF OPIOID EMERGENCY PERSIST, ALTERNATE NOSTRILS 03/27 completed Not Available Not Available Not Available Vitals Date Recorded Body mass index (BMI) Body mass index (BMI) Body height Body height Oxygen saturation Oxygen saturation in Arterial blood by Pulse oximetry Oxygen saturation Oxygen saturation in Arterial blood by Pulse oximetry Heart rate Heart rate Body temperature Body temperature Body weight Body weight Systolic blood pressure Diastolic blood pressure Systolic blood pressure Diastolic blood pressure Provider Name and Address Organization Details Last Updated DateTime 3 28.7 kg/m2 23.7 kg/m2 162.56 cm 162.56 cm 97 % 97 % 100 % 100 % 84 /min 66 /min 98.3 [degF] 97 [degF] 44179.9 3 g 44949.7 5 g 128 mm[Hg] 82 mm[Hg] 122 mm[Hg] 82 mm[Hg] Not Available [facility] 3 07:29:01 Date Recorded Body height Body mass index (BMI) Body weight Heart rate Systolic blood pressure Diastolic blood pressure Provider Name and Address Organization Details Last Updated DateTime 4 162.56 cm 23.7 kg/m2 79919.7 5 g 64 /min 120 mm[Hg] 80 mm[Hg] MARIA T Kelley [facility] 4 15:22:44 Social History Question Answer Notes LastModified by Organizat ion Details LastModified Time Tobacco Smoking Status Never Smoker [facility] 04/09/2023 15:21:54 What Is Your Level Of Alcohol Consumption? Occasional [id number] Information not available 05/22/2022 What Is Your Level Of Caffeine Consumption? None [id number] Information not available 05/22/2022 What Type Of Diet Are You Following? REGULAR [id number] Information not available 05/22/2022 What Was The Date Of Your Most Recent Tobacco Screening? 03/27/2022 Information not available 04/09/2023 What Is Your Relationship Status? [id number] Information not available 05/22/2022 Have You Recently Traveled Abroad? No Information not available 04/09/2023 Sex: Female Functional Status None recorded. Mental Status None recorded. Family History Relationship Description Onset Age of this Age Resolved Age Notes LastModified by Organization Details LastModified Time Maternal Grandfather Diabetes mellitus [id number] Not available 05/22/2022 07:26:23 Maternal Grandmother Malignant tumor of colon [email or web address] Not available 2023 15:21:52 Medical History No medical history recorded. Gynecological HistoryNo gynecological history recorded. Obstetrics History GPAL:G 0 P 0 0 0 0 Immunizations Vaccine Type Date Status Note Provider Nam e and Address Organization Details Recorded Time Tdap 0 completed Not Available [facility] 05/22/2022 07:34:18 Influenza, split virus, quadrivalent, preservative 0 completed Not Available [facility] 05/22/2022 07:34:19 Past Encounters Encounter ID Performer Location Encounter Start Date Encounter Closed Date Diagnosis/Indication Diagnosis SNOMED-CT Code Diagnosis ICD10 Code Diagnosis Note [id number] _ATHENA_M IGRATION_ DEFAULT_1 _1 , 09/05/2021 00:00:00 09/05/2021 15:10:26 [id number] _ATHENA_M IGRATION_ DEFAULT_1 _1 , 03/27/2022 00:00:00 03/27/2022 12:19:10 [id number] Minerva Serna MD [facility] [place] [address] [place] [phone] 04/09/2023 15:21:03 04/10/2023 10:02:05 Liver enzymes level above reference range [id number] R74.01 Health Concerns Section Related Observation LastModified by Organization Detai ls LastModified Time None Recorded Concern Status LastModified by Organization Details LastModified Time None Recorded Advance Directives Directive None Recorded Payers Encounter Date Sequence Insurance Name Policy Number Policy Reaves Covered Member ID Reaves Member ID Guarantor Name 04/09/2023 1 [facility] (MEDICARE REPLACEMENT/A DVANTAGE - PPO) [id number] Flor Gallego [id number] Flor Gallego 04/09/2023 2 [place] [employer] [place] [employer] Flor Gallego [id number] Flor Gallego Notes Date Note Type Note Provider Name and Address Organization Details Recorded Time 04/09/2023 text/html NOAH WAS SEEN IN THE OFFICE TODAY FOR EVALUATION . PT IS S/P DUODENAL SWITCH AND SLEEVE GASTRECTOMY. SHE HAD ELEVATED LFTs . 05/2022 ast/alt 55/68. 02/2023 AST/ ALT 155/147, ALK PHOS 150. PT REPORTS THAT SHE HAS A SMALL AMOUNT OF PLAQUE AND WAS PLACED ON A STATIN 4 MTHS AGO . HENCE THE ELEVATION OF HER LIVER ENZYMES. SHE DENIES RUQ PAIN / HEPATITIS . Minerva Serna MD [address] [place] [address] Ave, [facility] [address], [place], [address], [place] [facility] 04/09/2023 16:07:25 OBGyn Episode No OBEpisode recorded.
--- OUTSIDE RECORDS SUMMARY | 2024-05-08 13:05 | XMS_ITS | Encounter Summary ---
Author Organization [facility] Address [address] [place] [address] Phone Care Team Providers Care Social Media Job Titles Name Role Phone Mary Diaz MD Primary Care Provider [phone] Encounter Details Date Type Department Care Team (Latest Contact Info) Description 05/13/2023 Transcribe Orders [facility] Preop/Pacu II [address] [place] [address] Yamilex Beyer, DPM [address] [place] [address] Pre-op testing (Primary Dx) Social History Tobacco Use Types Packs/Day Years Used Date Smoking Tobacco: Former Cigarettes 3 37 1 972 - 2009 Smokeless Tobacco: Never Alcohol Use Standard Drinks/Week Comments No 0 (1 standard drink = 0.6 oz pur e alcohol) Comments No Sex and Gender Information Value Date Recorded Sex Assigned at Female 05/07/2023 5:26 AM CRUSHER FEEDER Legal Sex Female 12:08 AM CDT Gender Identity Female 05/07/2023 5:26 AM CRUSHER FEEDER Sexual Orientation Straight 05/07/2023 5: 26 AM CRUSHER FEEDER 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 Not on file Not on file Not on file documented as of this encounter Plan of Treatment Not on file documented as of this encounter Results * (ABNORMAL) BASIC METABOLIC PANEL W/ CALCIUM TOTAL (05/14/2023 1:28 PM CRUSHER FEEDER) SODIUM 143 136 - 145 mmol/L 05/14/2023 3:05 PM [facility] POTASSIUM 2.9(L) 3.5 - 5.1 mmol/L 05/14/2023 3:05 PM [facility] CHLORIDE 103 98 - 107 mmol/L 05/14/2023 3:05 PM [facility] CO2, VENOUS 31(H) 22 - 30 mmol/L 05/14/2023 3:05 PM [facility] ANION GAP 11.9 <18.0 mmol/L 05/14/2023 3:05 PM [facility] GLUCOSE 79 70 - 99 mg/dL 05/14/2023 3:05 PM [facility] BUN 11 10 - 20 mg/dL 05/14/2023 3:05 PM [facility] CREATININE, BLOOD 0.61 0.60 - 1.00 mg/dL 05/14/2023 3:05 PM [facility] BUN/CREATININE RATIO 18 12 - 20 ratio 05/14/2023 3:05 PM [facility] CALCIUM 8.6(L) 8.7 - 10.5 mg/dL 05/14/2023 3:05 PM [facility] IS THE PATIENT REQUIRED TO BE FASTING? No 05/14/2023 3:05 PM [facility] GFR, ESTIMATED >60 >=60 05/14/2023 3:05 PM [facility] Comment: Creatinine Clearance is the preferred criteria for selecting drug dose adjustments in renally impaired patients. The GFR is provided as additional pertinent clinical information. GFR is reported in mL/min/1.73 sq m. Calculation based on the Chronic Kidney Disease Epidemiology Collaboration (CKD- EPI) equation refit without adjustment for race. GFR, EST. >60 >=60 024 3:05 PM [facility] GFR, EST. NONAFRICAN >60 >=60 05/14/2023 3:05 PM CRUSHER FEEDER [facility] Blood Venipuncture / Unknown 05/14/2023 1:28 PM CRUSHER FEEDER 05/14/2023 2:37 PM CRUSHER FEEDER us Yamilex Beyer DPM CHEMISTRY ORDERABLES Final R esult [facility] [address] [place] [address] documented in this encounter Visit Diagnoses Diagnosis Pre-op testing- Primary Preoperative examination, unspecified documented in this encounter Care Teams Social Media Job Titles Relationship Specialty Start Date End Date Mary Diaz MD [address] [place] [address] [place] [address] PCP - General Family Medicine 06/30/22 documented as of this encounter
--- OUTSIDE RECORDS SUMMARY | 2024-05-08 13:05 | XMS_ITS | Clinical Summary ---
Author Organization [facility] Address [address] [place] [address] Care Team Providers Care Boat Captain Name Role Phone Mary Diaz MD Primary Care Provider Social History Tobacco Use Types Packs/Day Years Used Date Smoking Tobacco: Never Assessed Comments Unknown Sex and Gender Information Value Date Recorded Sex Assigned at Not on file Legal Sex Female 8:16 PM CDT Gender Identity Not on file Sexual Orientation Not on file Plan of Treatment Health Maintenance Due Date Last Done Comments Cervical Cancer Screening Pap Smear (Age 30 to 64) Every 3 Years 1961 Colorectal Cancer Screening Colonoscopy (10 Years) 1961 Annual Physical 1964 Hepatitis C 09/17/1979 Cervical Cancer Screening Pap with HPV Testing (Age 30 to 64) Every 5 Years 09/17/1991 Cervical Cancer Screening with HPV 09/17/1991 Mammogram Screening 2001 COVID-19 Vaccine ( season) 2023 05/01/2022, 03/30/2021, 09/09/2020, Additional history exists Influenza Adult (#1) 2023 05/01/2022, 01/24/2021, 01/11/2020 DTaP, Tdap and Td Vaccines (2 - Td or Tdap) 01/10/2030 01/11/2020 RSV Immunization or 60+ Years (1 - 1-dose 75+ series) 2036 Zoster Vaccines Completed 03/30/2021, 01/24/2021 Meningococcal B Vaccine Aged Out No l onger eligible based on patient's age to complete this topic Meningococcal Vaccine Aged Out No gloria guillermo eligible based on patient's age to complete this topic Pneumococcal Vaccine: Pediatrics (0 to 5 Years) and At-Risk Patients (6 to 64 Years) Aged Out No longer eligible based on patient's age to complete this topic RSV Immunizations Under 20 Months Aged Out No longer eligible based on patient's age to complete this topic [facility] [address] Care Teams Boat Captain Relationship Specialty Start Date End Date Mary Diaz MD [address] [place] [address] PCP - General SPORTS MEDICINE 06/20/22
--- OUTSIDE RECORDS SUMMARY | 2024-05-08 13:05 | XMS_ITS | Referral Summary ---
Author Organization [facility] Address [address] [place] [address] Care Team Providers Care Nursing Staffing Coordinator Name Role Phone Slick Quispe MD Primary Care Provider Source Comments [facility],non-owned Affiliates and Associated Physician Practices is amultiple site organization consisting of ambulatory clinics and hospital sitesin [place], [place], [place] and [place]. This disclosure is being madepursuant to the Care Everywhere program and may not contain all information available regarding this patient. Last updated 17.[facility] Encounters Date Type Department Care Team Description 03/11/2024 Travel from Last 3 Months Allergies No known active allergies Medications * [...] mouth at bedtime 10/30/2021 Active HYDROcodone-acetam inophen ([place]) 10-325 MG tablet Take 1 tablet by [...] Sex Assigned at Female 05/20/2022 6:45 PM DRY KILN OPERATOR Gender Identity Female 05/20/2022 6:45 PM DRY KILN OPERATOR Sexual Orientation Straight 05/20/2022 6: 45 PM DRY KILN OPERATOR Last Filed Vital Signs Vital Sign Reading Time Taken Comments Blood Pressure 153/66 02/18/2022 9:00 AM DRY KILN OPERATOR Pulse 66 02/18/2022 9:00 AM DRY KILN OPERATOR Temperature 37 C (98.6 F) 02/18/2022 9:00 AM DRY KILN OPERATOR Respiratory Rate 18 01/16/2022 9:22 AM CDT Oxygen Saturation 98% 02/18/2022 9:00 AM DRY KILN OPERATOR Inhaled Oxygen Concentration - - Weight 72.6 kg (160 lb) 03/11/2024 9:26 AM DRY KILN OPERATOR Height 162.6 cm (5' 4 ) 03/11/2024 9:26 AM DRY KILN OPERATOR Body Mass Index 27.46 03/11/2024 9:26 AM DRY KILN OPERATOR Plan of Treatment Not on file Procedures Procedure Name Priority Date/Time Associated Diagnosis Comments MAMMOGRAM 06/18/2022 from Last 3 Months or Most Recently Relevant to Health Maintenance Results * MAMMOGRAM (06/18/2022) Anatomical Region Laterality Modality Other 06/18/2022 Narrative 06/18/2022 Ordered by an unspecified provider. Scanned Document SCANNING ONLY from Last 3 Months or Most Recently Relevant to Health Maintenance Care Teams Nursing Staffing Coordinator Relationship Specialty Start Date End Date Slick Quispe MD [address] [place] [address] PCP - General 08/02/21
--- OUTSIDE RECORDS SUMMARY | 2024-05-08 13:05 | XMS_ITS | Continuity of Care Document ---
Author Organization [facility] Address [address] [place] [address] Phone Care Team Providers Care Music Engraver Name Role Phone Magda PT, MINGT, Joe Unavailable Unavailable Procedures Procedure Date Therapeutic Activities Progress Note Therapeutic Exercise Neuromuscular Re-Ed Therapeutic Activities Neuromuscular Re-Ed Therapeutic Exercise Therapeutic Activities Therapeutic Exercise Neuromuscular Re-Ed Therapeutic Activities Therapeutic Exercise Neuromuscular Re-Ed Therapeutic Exercise Therapeutic Activities Neuromuscular Re-Ed Therapeutic Activities Neuromuscular Re-Ed Therapeutic Activities Neuromuscular Re-Ed Therapeutic Activities Neuromuscular Re-Ed PT Evaluation Moderate Complexity Therapeutic Activities Neuromuscular Re-Ed Therapeutic Activities Neuromuscular Re-Ed Therapeutic Exercise Therapeutic Activities Neuromuscular Re-Ed Therapeutic Activities Neuromuscular Re-Ed PT Evaluation Moderate Complexity Therapeutic Activities Neuromuscular Re-Ed Therapeutic Exercise Advance Directives Directive Yes / No Effective Date File Name No Information Encounters Encounter Description Practice Location Reason(s) For Visit Diagnoses Date Provider Providers Copied on Encounter [facility] [address], [place], [place], [id number], tel:[phone] [place] No Information Dec- 2 Magda Diaz. . [facility], [place], [place], [address], tel:[phone] [place] No Information Nov-2 2 Magda Diaz. . Referring Provider: Owen Meadows[address] [facility] [address], [place], [address]. tel:[phone] [facility], [place], [place], [id number], tel:[phone] [place] No Information Sep-1 2 Magda Diaz. . Referring Provider: Cristofer Alicia [address] [facility] [address], [place], [address]. tel:[phone] [facility] [address] [facility], [place], [place], [id number], [place] tel:[phone] [place] No Information Sep-1 - 2 [place], [place], [place]. Referring Provider: Jessica Meadows [facility] [address], [place], [address]. tel:[phone] [facility] [address], [place], [place], [id number], [place] tel:[phone] [place] No Information Sep-0 2 Modglin Ralph. . Referring Provider: Jessica Meadows [facility] [address], [place], [address]. tel:[phone] [facility], [place], [place], [address], [place] tel:[phone] [place] No Information Sep-0 2 Klahn Joe. . Referring Provider: Cristofer Alicia, Owen0 [facility] [address], [place], [address]. tel:[phone] [facility], [place], [place], [address], [place] tel:[phone] [place] No Information Sep-0 2 Klahn Joe. . Referring Provider: Cristofer Alicia Owen[address] [facility] [address], [place], [address]. tel:[phone] [facility], [place], [place], [address], [place] tel:[phone] [place] No Information 2 Klahn Joe. . Referring Provider: Cristofer Alicia Owen0 [facility] [address], [place], [address]. tel:[phone] [facility] [facility] [address], [place], [place], [address], [place] tel:[phone] [place] No Information 2 Klahn Joe. . Referring Provider: Cristofer Alicia Owen[address] [facility] [address], [place], [address]. tel:[phone] [facility], [place], [place], [address], [place] tel:[phone] [place] No Information 2 Klahn Joe. . Referring Provider: Cristofer Alicia Owen[address] [facility] [address], [place], [address]. tel:[phone] [facility], [place], [place], [address], [place] tel:[phone] [place] No Information 9 Treaster Yaima. . [facility], [place], [place], [address], [place] tel:[phone] [place] No Information 9 Treaster Yaima. . [facility], [place], [place], [address], [place] tel:[phone] [place] No Information Karina Erwin. . [facility], [place], [place], [address], [place] tel:[phone] [place] No Information 9 Karina Erwin. . Family History Family Member Type Diagnosis Age At Onset No Information Payers Payer name Insurance type Covered green party ID Zak plascenciajune(s) [employer] [facility] [employer] [id number] Social History Type Description Quantity Date Captured Comments Sex Female Smoking Status No Information Chief Complaint And Reason For Visit No Information Reason For Referral Reason For Referral No Information History Of Present Illness Encounter Date Complaint History Of Prese nt Illness No Information Functional Status Date Functional Assessmen t No Information Instructions Date Instruction Additional Infor mation Giving encouragement to exercise Related to Overweight Giving encouragement to exercise Related to Overweight Assessments Type Assessment Date No Information Patient Care Teams Name Effective Dates (start - stop) Status Members No Information
--- OUTSIDE RECORDS SUMMARY | 2024-05-08 13:05 | XMS_ITS | Referral Summary ---
Author Organization [address] Address [address] [place] [address] Care Team Providers Care Room Service Supervisor Name Role Phone Minerva Serna MD Unavailable Alfie Vegas MD Unavailable [phone] Toni Cintron MD Unavailable Brendan Thomas DPLinda Unavailable [phone] Mary Diaz MD Primary Care Provider Vivi Wood CNM Unavailable Tahmina Marvin MD Unavailable Cristofer lAicia MD Unavailable Prashanth Lee MD Unavailable Roberto Carlos Fregoso MD Unavailable García Siddiqui DO Unavailable Ana Delarosa MD Unavailable Orion Sommer MD Unavailable Alban Hernandez MD Unavailable [phone] Rehana Mckeon MD Unavailable Encounters Date Type Department Care Team Description 05/04/[address] [facility] Diabetes and Endocrinology [address] [place] [address] [place] [address] Mariam Shah, PRODUCT EVANGELIST Test Results (Labs) 03/09/2024 Orders Only [facility] Health Information Management [address] [place] [address] Scanning, Provider 02/11/[address] [facility] Diabetes and Endocrinology [address] [place] [phone] Mariam Shah, STACEY Test Results (Labs) from Last 3 Months Allergies Active Allergy Reactions Criticality Noted Date Comments Adhesive Other (See comments) Low 05/16/2022 Tears skin Shbmbtcb-Vddotafmce-Clohuyrv n Itching,Rash Medium 06/07/2015 Venom-Honey Bee Swelling [...] HOURS BEFORE BEDTIME FOR RESTLESS LEG SYMPTOMS Active spironolactone (ALDACTONE) 25 mg tablet Take [...] TABLET BY MOUTH DAILY 30 tablet 11 Active losartan (COZAAR) 50 mg tabletIndications :Primary hypertension TAKE 1 TABLET(50 MG) BY MOUTH EVERY NIGHT 90 tablet 1 Active losartan (COZAAR) 50 mg tabletIndications :hypertension Take 1 tablet (50 mg total) by mouth nightly 90 tablet 1 024 2024 Discontinued Active Problems Problem Noted Date Diagnosed Date Seasonal allergic rhinitis due to pollen Assessment & Plan (12/26/2023 9:11 AM CDT): Nasal saline spray (Simply saline, Little Remedies, Sweetser, [place]) 2 second sprays or 2 squeezes into [...] evaluation Assessment & Plan (04/30/2023 5:32 PM PRODUCT EVANGELIST): Noted on more recent labs. Patient had some blood work through her specialists. I have encouraged her to get me a copy of these to review Transaminitis 04/30/2023 Assessment & Plan (04/30/2023 5:35 PM PRODUCT EVANGELIST): Present since least 2021. The elevated liver [...] 10/28/2022 Assessment & Plan (04/30/2023 5:32 PM PRODUCT EVANGELIST): Chronic calcification noted on prior imaging. Risk [...] symptoms Assessment & Plan (04/30/2023 5:32 PM PRODUCT EVANGELIST): Chronic but symptomatically improving. Working with Podiatry. [...] shoe. Defer care to specialists Intestinal intussusception ([facility]) 08/16/2022 Overview (08/16/2022): Multiple areas [...] today at [facility]. Verified that she uses [employer]. Aware to check results/results letter in mychart. Will contact by phone if needed. Assessment & Plan (05/13/2023 11:09 AM PRODUCT EVANGELIST): Chronic problem. Clinically euthyroid at this time. Reviewed recent labs 02/21 & 02/27 that were vastly different. [facility] Verified that she uses mychart. Aware to check results/results letter in [employer]. Will contact by phone if needed. Aware to take 1st thing in morning, 30-60 minutes before food/drink/other medications. Assessment & Plan (04/30/2023 5:31 PM PRODUCT EVANGELIST): Chronic. Follows with endocrinology. Continue thyroid medication per specialist Assessment & Plan (01/28/2023 11:38 AM PRODUCT EVANGELIST): Chronic problem. Improved on current levothyroxine 112mcg [...] daily. TSH/T4 ordered. Verified that she uses mychart. Aware to check results/results letter in [employer]. Will contact by phone if needed. Will send 90 day refill to [facility] once labs result Verified phone #/address if I need to call her. Pelvic floor dysfunction 04/24/2022 Assessment & Plan (04/24/2022 8:51 AM PRODUCT EVANGELIST): -no myofascial pain noted on today's exam -continue performing PFPT exercises Vaginal atrophy 04/24/2022 Assessment & Plan (04/24/2022 8:51 AM PRODUCT EVANGELIST): -discussed decreasing VET to twice per week, [...] working Assessment & Plan (04/24/2022 8:55 AM PRODUCT EVANGELIST): -she is not using the the #1 [...] well Assessment & Plan (04/30/2023 5:31 PM PRODUCT EVANGELIST): Chronic. Struggles some with anxiety at times [...] legs Assessment & Plan (04/30/2023 5:31 PM PRODUCT EVANGELIST): Chronic. Continue medication care per pain management [...] report. Assessment & Plan (04/30/2023 5:33 PM PRODUCT EVANGELIST): Noted previously. These were not mentioned on her CT scan when done to evaluate for pulmonary embolism in August. We will plan 1 year follow-up CT in August to ensure no residual pulmonary nodules needing additional monitoring Cervical post-laminectomy syndrome 05/09/2021 Overview (04/08/2022): [facility] pain management, Dr. Marvin Assessment & Plan (10/30/2023 6:32 PM CDT): Chronic. Continue working with the pain management. Stable Assessment & Plan (04/30/2023 5:31 PM PRODUCT EVANGELIST): Chronic. Continue medication and care per pain management Assessment & Plan (10/28/2022 7:11 PM CDT): Chronic. Continue medication and care per pain management Long-term current use of opiate analgesic 2021 Overview (04/08/2022): [facility] pain management, Dr. Marvin Assessment & Plan (04/30/2023 5:33 PM PRODUCT EVANGELIST): Chronic. Medication care per pain management Osteopenia of multiple sites 02/12/2021 Depressive disorder 01/28/2021 Overview (04/08/2022): Vivi Marin Assessment & Plan (04/30/2023 5:30 PM PRODUCT EVANGELIST): Chronic. Mood is stable. Continue medication care [...] monoplegia Assessment & Plan (04/30/2023 5:30 PM PRODUCT EVANGELIST): Chronic. Continue medication and care per journeyman painter Assessment & Plan (10/28/2022 7:11 PM CDT): Chronic. Continue medication and care per journeyman painter Primary localized osteoarthritis of pelvic regio n and thigh 01/28/2021 Tobacco dependence in remission 01/28/2021 Assessment & Plan (04/30/2023 5:33 PM PRODUCT EVANGELIST): Chronic. Patient will be due for updated lung cancer screening CT in August. Continue to abstain for smoking Presence of artificial hip joint 01/03/2021 08/26/2022 Chronic bilateral low back pain with bilateral s ciatica 02/14/2020 Overview (04/08/2022): Sees pain management, Dr. Marvin Assessment & Plan (10/30/2023 6:31 PM CDT): Chronic. Stable. Continue cyclobenzaprine, gabapentin. Continue working with pain management Assessment & Plan (04/30/2023 5:27 PM PRODUCT EVANGELIST): Chronic. Can continue medication care for pain management. She is on gabapentin, duloxetine, hydrocodone, and ropinirole Assessment & Plan (10/28/2022 7:11 PM CDT): Chronic. Can continue medication care for pain management. She is on gabapentin, duloxetine, hydrocodone known and ropinirole Assessment & Plan (02/14/2020 4:43 PM PRODUCT EVANGELIST): Patient has 10 day history of low [...] that she continue with Dr. Carreno in [place] as she sees no need to have [...] 03/24/2017 Assessment & Plan (04/30/2023 5:31 PM PRODUCT EVANGELIST): Chronic. Symptomatically has improved. Monitor. Assessment & [...] doses Assessment & Plan (04/30/2023 5:30 PM PRODUCT EVANGELIST): Chronic. Follows with endocrinology. Continue medication and care per specialists Assessment & Plan (02/12/2021 12:34 PM PRODUCT EVANGELIST): With subclinical hyperthyroidism. Will recheck free T4 and free T3 As on a day stay normal, will continue to monitor. 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 Breathing controlled. We will continue Spiriva and p.r.n. albuterol. Declines need for adjustment Assessment & Plan (04/30/2023 5:27 PM PRODUCT EVANGELIST): Chronic. Breathing is relatively stable. Denies significant shortness of breath and wheezing currently. Continue current inhaler Assessment & Plan (10/28/2022 7:09 PM CDT): Breathing is relatively stable. Denies significant shortness of breath and wheezing currently. Continue current inhaler Hyperlipidemia 07/21/2009 Assessment & Plan (10/30/2023 6:31 PM CDT): Chronic. On rosuvastatin. We will continue Assessment & Plan (04/30/2023 5:30 PM PRODUCT EVANGELIST): Chronic. Patient has a degree of transaminitis [...] now. Assessment & Plan (04/30/2023 5:31 PM PRODUCT EVANGELIST): Chronic. Blood pressure is very tightly controlled [...] (04/05/2022): Added automatically from request for surgery [id number] Exposure of implanted vaginal mesh 11/20/2021 04/08/2022 Overview (11/20/2021): Added automatically from request for surgery [id number] Radiculopathy, lumbosacral region 05/09/2021 04/08/2022 Other obesity due to excess calories 05/09/2021 04/08/2022 Gastroesophageal reflux disease 01/28/2021 04/08/2022 Lymphadenopathy 01/28/2021 04/08/2022 Mild chronic obstructive pulmonary disease 01/28/2021 10/28/2022 Encounter to establish care 01/28/2021 04/08/2022 Assessment & Plan (01/28/2021 2:15 PM PRODUCT EVANGELIST): A visit to establish care has been performed today. Flor Gallego is not up to date on screening tests. She is in need of Mammogram, Lung cancer screen and hepatitis c screen- these have been ordered. She is up to date on needed preventative vaccinations. Cervical radiculopathy 01/28/202104/08 Assessment & Plan (01/28/2021 2:17 PM PRODUCT EVANGELIST): Her pain management was covered by her neurologist will need new pain doctor (her neurologist is leaving the area at the end of the month) Erythrocytosis 02/24/2020 04/08/2022 Pachyderma of larynx 06/26/2017 023 WILFRED (obstructive sleep apnea) 06/26/2017 04/08/2022 Hot thyroid nodule 02/20/2017 Assessment & Plan (03/28/2022 1:56 PM PRODUCT EVANGELIST): Chronic problem, not at goal. She has h/o toxic MNG, with both hot and possible cold nodule on I-123 scan, low risk (per [facility]) FNA x 2 in [id number]. She is having increasing trouble swallowing and [...] 06/04/2022 Assessment & Plan (02/12/2021 12:45 PM PRODUCT EVANGELIST): Risk of cardiac arrhythmias with discussed. The patient is following with cardiology Bone density also requested due to the risk of bone density loss in patient with subclinical hyperthyroidism Assessment & Plan (02/06/2017 4:43 PM PRODUCT EVANGELIST): Check TFT's Treat as indicated Assessment & Plan (01/09/2017 4:27 PM CDT): Long standing, related to MNG Repeat TFT's Recommendations to follow Most likely will watch without specific intervention. Multinodular goiter (nontoxic) 01/09/2017 09/26/2022 Assessment & Plan (02/12/2021 12:55 PM PRODUCT EVANGELIST): With FNA showing follicular lesion of unknown significance. With [facility] molecular testing, negative.less than 4 % change of malignancy. Will repeat thyroid ultrasound if not changes will continue monitoring Assessment & Plan (02/06/2017 4:42 PM PRODUCT EVANGELIST): Differential diagnosis would include benign nodule (macrofollicular [...] 04/08/2022 Palpitations 07/21/2009 04/08/2022 Hypertensive disorder 07/21/20092022 Immunizations Name Administration Dates Next Due Influenza, Quadrivalent, Sadia l Culture-based MDCK, Preservative Free, Antibiotic Free, Intramuscular 05/01/2022 Influenza, Quadrivalent, Split, Intramuscular Influenza, Quadrivalent, Spl it, Preservative Free, Intramuscular 05/13/2023,01/24/2021 Pfizer SARS-CoV-2 Monovalent Vaccination (12+ Yrs) PURPLE 09/09/2020,08/19/2020 Pneumococcal Conjugate Pcv20 05/13/2023 RSV Vaccine, Pref, Recombina nt, Subunit, Adjuvanted, PF, IM (Arexvy) 05/13/2023 Tdap 05/13/2023,01/11/2020 ZOSTER LIVE 01/24/2021 ZOSTER Recombinant 03/30/2021,01/24/2021 Social History Tobacco Use Types Packs/Day Years [...] on file Legal Sex Female 7:24 PM PRODUCT EVANGELIST Gender Identity Female 02/08/2020 5:48 PM PRODUCT EVANGELIST Sexual Orientation Straight 02/08/2020 5: 48 PM PRODUCT EVANGELIST Last Filed Vital Signs Vital Sign Reading [...] 12/26/2023 8:47 AM CDT Plan of Treatment Not on file Medical Devices Implanted Type Area Surveillance Sensor Officer Device Identifier Shelf Expiration Date Model / Serial / Lot Ethicon Endo Surgery Tvt Prolene 45x1.1cm Tape Mesh Transvaginal Blue [id number] - [id number] Implanted:Qty: 1 on 05/29/2022 by Aura Driscoll MD at [facility] Mesh N/A: Urethra Ethicon Endo Surgery [id number] 11/21/2024 [id number] / / [employer] Sls-Clip Ligate Triangular Wire Kathleen Groove Small Chevron Clip Latex Free C3436-3 - [id number] Implanted:Qty: 2 on 05/20/2022 by Sameer Alan MD at [facility] [employer] [id number] / / [facility] Sls-Clip Ligate Triangular Wire Kathleen Groove Small Chevron Clip Latex Free S9637-8 - [id number] Implanted:Qty: 2 on 05/20/2022 by Sameer Alan MD at [facility] [id number] / / Procedures Procedure Name Priority Date/Time Associated Diagnosis Comments TSH Routine 04/21/2024 11:58 AM PRODUCT EVANGELIST Postoperative hypothyroidism T4, FREE Routine 04/21/2024 11:58 AM PRODUCT EVANGELIST Postoperative hypothyroidism SCAN - RADIOLOGY/IMAGING 03/09/2024 MAMMOGRAPHY Routine 10/31/2023 2:52 PM CDT HEPATITIS C SCREENING Routine 04/06/2023 COLONOSCOPY Routine 09/18/2016 from Last 3 Months or Most Recently Relevant to Health Maintenance Results * TSH (04/21/2024 11:58 AM PRODUCT EVANGELIST) TSH 0.800 0.450 - 4.500 uIU/mL [facility] - 01 Blood 04/21/2024 11:5 8 AM PRODUCT EVANGELIST 04/21/2024 Narrative [facility] - 04/22/2024 9:10 AM PRODUCT EVANGELIST Performed at: [facility] [address] [id number] Case Assembler: Jack Winslow PhD, Phone: [phone] us Mariam Shah PRODUCT EVANGELIST LAB BLOOD ORDERABLES Armida l Result [facility] - 01 * T4, free (04/21/2024 11:58 AM PRODUCT EVANGELIST) T4,Free(Direct) 1.43 0.82 - 1.77 ng/dL [facility] - 01 Blood 04/21/2024 11:5 8 AM PRODUCT EVANGELIST 04/21/2024 Narrative [facility] - 04/22/2024 9:10 AM PRODUCT EVANGELIST Performed at: [facility] [id number] Case Assembler: Jack Winslow PhD, Phone: [phone] Mariam Shah PRODUCT EVANGELIST LAB BLOOD ORDERABLES Armida l Result [facility] - 01 * SCAN - RADIOLOGY/IMAGING (03/09/2024) Anatomical Region Laterality Modality Other Provider Scanning Final Result * MAMMOGRAPHY (10/31/2023 2:52 PM CDT) Mammography Normal Historical Provider HEALTH MAINTENANCE Final Result * HEPATITIS C SCREENING (04/06/2023) SCRIBED HCV ab nonreactive Comment:Patient had checked through GI. She showed me a copy of the results through her [employer] garcia Historical Provider HEALTH MAINTENANCE Final Result * Colonoscopy (09/18/2016) Anatomical Region Laterality Modality Other Narrative 09/18/2016 Polypectomy; repeat in 3 years Historical Provider ENDOSCOPY PROCEDURES Armida l Result from Last 3 Months or Most Recently Relevant to Health Maintenance Insurance MEDICARE SOLUTIONS IDPA MEDICARE [employer] MEDICARE SOLUTIONS IDPA Advance Directives For more information, please contact: [phone] * Full Code (Latest Code Status on File) Date Activated Date Inactivated Comments 05/20/2022 3:24 PM 05/21/2022 2:16 PM * Full Code Date Activated Date Inactivated Comments 02/12/2022 11:40 AM 02/12/2022 6:05 PM Care Teams Room Service Supervisor Relationship Specialty Start Date End Date Mary Diaz MD [address] [place] [address] PCP - General Family Practice 04/05/22 Minerva Serna MD [address] [place] [address] Consulting Physician Gastroenterology 01/28/21 Alfie Vegas MD [address] [place] [address] Consulting Physician Hematology 01/28/21 Toni Cintron MD [address] [place] [address] Consulting Physician Obstetrics and Gynecology 01/28/21 Brenadn Thomas DPM [address] [place] [address] Consulting Physician Foot and Ankle Surg 01/28/21 Vivi Wood CNM [address] [place] [address] Nurse Practitioner Psychiatry 04/08/22 Tahmina Marvin MD [address] [facility] [address] [place] [address] Referring Physician Pain Management 04/08/22 Cirstofer Alicia MD [address] [place] [address] Referring Physician Neurosurgery 04/08/22 [place] [address] [address] [facility] [address] [place] [address] Consulting Physician Endocrinology Diabetes & Metabolism 04/08/22 Roberto Carlos Fregoso MD [address] [facility] [place] [address] Referring Physician Otolaryngology 04/08/22 García Siddiqui DO [address] [facility] [place] [address] Referring Physician Surgery 04/08/22 Ana Delarosa MD [address] [facility] [address] [place] [address] Consulting Physician Sleep Medicine 04/08/22 [place] [address] [place] [address] Surgeon Orthopedic Surgery 04/08/22 [place] [address] [place] [address] Referring Physician Orthopedic Surgery 04/08/22 [place] [address] [address] Consulting Physician Cardiology 04/08/22
--- OUTSIDE RECORDS SUMMARY | 2024-05-08 14:02 | XMS_ITS | Encounter Summary ---
Author Organization [facility] Address [address] [place] [address] Care Team Providers Care Production Finisher Name Role Phone Malathi Perez MD Primary Care Provider [phone] Encounter Details Date Type Department Care Team (Late st Contact Info) Description 04/27/2003 Outpatient Historical [facility] Primary Care - [address] [place] [address] Cody Rubio MD [address] [facility] [address] [place] [address] Social History Tobacco Use Types Packs/Day Years Used Date Smoking Tobacco: Never Assessed Comments Unknown Sex and Gender Information Value Date Recorded Sex Assigned at Not on file Legal Sex Female 5:18 AM STUDIO ASSOCIATE Gender Identity Not on file Sexual Orientation Not on file documented as of this encounter Plan of Treatment Not on file documented as of this encounter Visit Diagnoses Not on filedocumented in this encounter Care Teams Production Finisher Relationship Specialty Start Date End Date Malathi Perez MD PCP - General Family Practice 02/25/20 documented as of this encounter
--- OUTSIDE RECORDS SUMMARY | 2024-05-08 14:02 | XMS_ITS | Encounter Summary ---
Author Organization [facility] Address [address] [place] [address] Care Team Providers Care Oil Heaterman Name Role Phone Malathi Perez MD Primary Care Provider [phone] Encounter Details Date Type Department Care Team (Late st Contact Info) Description 11/25/2002 Outpatient Historical [facility] Primary Care - [address] [place] [address] Cody Rubio MD [address] [facility] [address] [place] [address] Social History Tobacco Use Types Packs/Day Years Used Date Smoking Tobacco: Never Assessed Comments Unknown Sex and Gender Information Value Date Recorded Sex Assigned at Not on file Legal Sex Female 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
--- OUTSIDE RECORDS SUMMARY | 2024-05-08 14:02 | XMS_ITS | Clinical Summary ---
Author Organization [facility] Address [address] [place] [address] Phone Care Team Providers Care Oven Unloader Name Role Phone Mary Diaz MD Primary Care Provider [phone] Allergies Active Allergy Reactions Criticality Noted Date [...] Information Patient not taking.Reported on 09/23/2023 Tiotropium [place] Monohydrate (SPIRIVA HANDIHALER IN) take by inhalation [...] Sex Assigned at Female 05/07/2023 5:26 AM OPTICAL STORE MANAGER Legal Sex Female 12:08 AM CDT Gender Identity Female 05/07/2023 5:26 AM OPTICAL STORE MANAGER Sexual Orientation Straight 05/07/2023 5: 26 AM OPTICAL STORE MANAGER 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 IMPLANT Left: Ankle [employer] 04/17/2028 AMAF-0020 / AMAF-0020 / [id number] Headles Screw Size 20 Implanted:Qty: 2 on 11/19/2022 by [facility]x [facility]yer DPM at [facility] Left: Foot AR-8725-20 H / AR-8725-20 H / AR-8725-20 H Explanted Type Area Tube Carrier Device Identifier Shelf Expiration Date Model / Serial / Lot 2.5 Headless Screw Size 12 Implanted:Qty: 2 on 11/19/2022 by Yamilex Beyer DPM at [facility] Explanted:Qty: 2 on 05/22/2023 by Yamilex Beyer DPM at [facility] Left: Foot ARTHREX AR-8725-12H / AR-8725-12H / AR-8725-12H Insurance MEDICAID [place] MEDICARE C [employer] Care Teams Oven Unloader Relationship Specialty Start Date End Date Mary Diaz MD [address] [place] [address] [place] [address] PCP - General Family Medicine 06/30/22
--- OUTSIDE RECORDS SUMMARY | 2024-05-08 14:02 | XMS_ITS | Encounter Summary ---
Author Organization [facility] Address [address] [place] [address] Care Team Providers Care Electrical Engineering Technician Name Role Phone Malathi Perez MD Primary Care Provider Encounter Details Date Type Department Care Team (Late st Contact Info) Description 11/21/2003 Outpatient Historical [facility] Primary Care - [address] [place] [address] Cody Rubio MD [address] [facility] [address] [place] [address] Social History Tobacco Use Types Packs/Day Years Used Date Smoking Tobacco: Never Assessed Comments Unknown Sex and Gender Information Value Date Recorded Sex Assigned at Not on file Legal Sex Female 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
--- OUTSIDE RECORDS SUMMARY | 2024-05-08 14:02 | XMS_ITS | Encounter Summary ---
Author Organization [facility] Address [address] [place] [address] Care Team Providers Care Devops Consultant Name Role Phone Malathi Perez MD Primary Care Provider [phone] Encounter Details Date Type Department Care Team (Late st Contact Info) Description 12/27/2002 Outpatient Historical [facility] Tai Mariano MD [address] [place] [address] [place] [address] REFLUX ESOPHAGITIS (Primary Dx) Social History Tobacco Use Types Packs/Day Years Used Date Smoking Tobacco: Never Assessed Comments Unknown Sex and Gender Information Value Date Recorded Sex Assigned at Not on file Legal Sex Female 5:18 AM INSPECTOR WIRE ROPE Gender Identity Not on file Sexual Orientation Not on file documented as of this encounter Plan of Treatment Not on file documented as of this encounter Visit Diagnoses Diagnosis Reflux esophagitis- Primary documented in this encounter Care Teams Devops Consultant Relationship Specialty Start Date End Date Malathi Perez MD PCP - General Family Practice 02/25/20 documented as of this encounter
--- OUTSIDE RECORDS SUMMARY | 2024-05-08 14:02 | XMS_ITS | Continuity of Care Document ---
Author Organization [employer] [place] Address [address] [place] [address] Phone Care Team Providers Care Document Restorer Name Role Phone Magda PT, MINGT, Joe Unavailable Unavailable Procedures Procedure Date Progress Note Therapeutic Activities Neuromuscular Re-Ed Therapeutic Exercise Therapeutic Activities Neuromuscular Re-Ed Therapeutic Exercise Therapeutic Activities Therapeutic Exercise Neuromuscular Re-Ed Therapeutic Activities Neuromuscular Re-Ed Therapeutic Exercise Neuromuscular Re-Ed Therapeutic Activities Therapeutic Exercise Therapeutic Activities Neuromuscular Re-Ed Neuromuscular Re-Ed Therapeutic Activities Therapeutic Activities Neuromuscular Re-Ed PT Evaluation Moderate Complexity Neuromuscular Re-Ed Therapeutic Activities Therapeutic Activities Neuromuscular Re-Ed Therapeutic Exercise Therapeutic Activities Neuromuscular Re-Ed Therapeutic Activities Neuromuscular Re-Ed PT Evaluation Moderate Complexity Neuromuscular Re-Ed Therapeutic Activities Therapeutic Exercise Advance Directives Directive Yes / No Effective Date File Name No Information Encounters Encounter Description Practice Location Reason(s) For Visit Diagnoses Date Provider Providers Copied on Encounter [facility] [address], [place], [place], [id number], tel:[phone] [place] No Information Dec- 2 Magda Diaz. . [facility], [place], [place], [address], tel:[phone] [place] No Information Nov-2 2 Magda Diaz. . Referring Provider: Owen Meadows0 [facility] [address], [place], [address]. tel:[phone] [facility], [place], [place], [address], tel:[phone] [place] No Information Sep-1 2 Magda Diaz. . Referring Provider: Cristofer Alicia [address] [facility] [address], [place], [address]. tel:[phone] [facility] [address] [facility] [address], [place], [place], [id number], [place] tel:[phone] [place] No Information Sep-1 - 2 [place], [place], [place]. Referring Provider: Jessica Meadows [facility] [address], [place], [address]. tel:[phone] [facility] [address], [place], [place], [address], [place] tel:[phone] [place] No Information Sep-0 2 Modglin Ralph. . Referring Provider: Jessica Meadows [facility] [address], [place], [address]. tel:[phone] [facility], [place], [place], [address], [place] tel:[phone] [place] No Information Sep-0 2 Klahn Joe. . Referring Provider: Cristofer Alicia, Owen0 [facility] [address], [place], [address]. tel:[phone] [facility], [place], [place], [address], [place] tel:[phone] [place] No Information Sep-0 2 Klahn Joe. . Referring Provider: Cristofer Alicia Owen0 [facility] [address], [place], [address]. tel:[phone] [facility], [place], [place], [address], [place] tel:[phone] [place] No Information 2 Klahn Joe. . Referring Provider: Cristofer Alicia Owen0 [facility] [address], [place], [address]. tel:[phone] [facility], [place], [place], [address], [place] tel:[phone] [place] No Information 2 Klahn Joe. . Referring Provider: Cristofer Alicia Owen0 [facility] [address], [place], [address]. tel:[phone] [facility], [place], [place], [address], [place] tel:[phone] [place] No Information 2 [place] Joe. . Referring Provider: Cristofer Alicia Owen0 [facility] [address], [place], [address]. tel:[phone] [facility], [place], [place], [address], [place] tel:[phone] Jayshree No Information 9 Treaster Yaima. . [facility], [place], [place], [address], [place] tel:[phone] [place] No Information 9 Treaster Yaima. . [facility], [place], [place], [address], [place] tel:[phone] Jayshree No Information Karina Erwin. . [facility], [place], [place], [address], [place] tel:[phone] J[place]hree No Information 9 Karina Erwin. . Family History Family Member Type Diagnosis Age At Onset No Information Payers Payer name Insurance type Covered green party ID Zak plascenciajune(s) [employer] [facility] Medicare [employer] [id number] Social History Type Description Quantity Date Captured [...]
--- OUTSIDE RECORDS SUMMARY | 2024-05-08 14:02 | XMS_ITS | Encounter Summary ---
Author Organization [facility] Address [address] [place] [address] Care Team Providers Care Bean Sprout Laborer Name Role Phone Malathi Perez MD Primary Care Provider Encounter Details Date Type Department Care Team (Late st Contact Info) Description 11/25/2002 Outpatient Historical 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
--- OUTSIDE RECORDS SUMMARY | 2024-05-08 14:02 | XMS_ITS | Clinical Summary ---
Author Organization [facility] Kathrine Mcintosh Address [address] [place] [address] Care Team Providers Care Staff Certified Nurse Midwife Name Role Phone Malathi Perez MD Primary Care Provider [phone] Allergies No known active allergies Medications MELATONIN [...] 20 Active fluticasone propionate (FLONASE) 50 mcg/spray [place], Suspension nasal inhaler Administer 1 [place] in each nostril. 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
--- OUTSIDE RECORDS SUMMARY | 2024-05-08 14:02 | XMS_ITS | Continuity of Care Document ---
Author Organization [facility] Address [address] [address] [place] [address] Phone Care Team Providers Care Gasoline Engine Inspector Name Role Phone Sukhbrianmallorie Hilario CORONAander Unavailable Unavailab le Allergies, Adverse Reactions, Alerts [...] directed per package instructions 0.00 - Active hydrocodone 10 mg-acetaminophen 325 mg/15 mL (15 mL) oral solution take 15 milliliter by oral route every 4 - 6 hours as needed 15.00 milliliter - Active levothyroxine 112 mcg capsule take 1 capsule by oral route every day 112 MCG - Active cyclobenzaprine 10 mg tablet take 1 tablet by oral route 3 times every day 10 MG - Active ropinirole 1 mg tablet take 1 tablet by oral route 3 times every day 1 MG - Active potassium chloride ER 20 mEq tablet,extended release take 1 tablet by oral route every day with food 20 MEQ - Active gabapentin 100 mg capsule take 1 capsule by oral route 3 times every day 100 MG - Active Bariatric Multivitamins 45 mg iron-800 mcg-120 mcg capsule - Active spironolactone 25 mg tablet take 1 tablet by oral route every day 25 MG - Active rosuvastatin 20 mg tablet take 1 tablet by oral route every day 20 MG - Active losartan 50 mg tablet take 1 tablet by oral route every day 50 MG - Active Zyrtec 10 mg capsule - Active Procedures Procedure Date OFFICE/OUTPATIENT VISIT EST OFFICE/OUTPATIENT VISIT NEW Advance Directives Directive Yes / No Effective Date File Name No Information Encounters Encounter Description Practice Location Reason(s) For Visit Diagnoses Date Provider Providers Copied on Encounter [facility] , [address], [place], [address], [place] [phone] [facility] No Information [address] [place], [place], [place], [address] , [place]. tel: [phone] [facility] , [address], [place], [address], [place] tel:[phone] [facility] Fat pad atrophy of footMetatarsa lgia, left foot [address] [place], [place], [place], [address] , [place]. tel: [phone] OFFICE/OUTPAT IENT VISIT EST [facility] , [address], [place], [address], [place] tel:[phone] [facility] [place] Injury of plantar plate of left foot, initial encounterFat pad atrophy of footMetatarsa lgia, left foot 4 [place] [place], [place], [place], [address] , [place]. tel: [phone] Referring Provider: Eddie Gutiérrez, [address] [place] [address], [address] . tel:[phone] OFFICE/OUTPAT IENT VISIT NEW [facility] , [address], [place], [address], [place] tel:[phone] [facility] [place] Metatarsalgia , left footFat pad atrophy of footInjury of plantar plate of left foot, initial encounter [address], [place], [place], [address] , [place]. tel: [phone] Referring Provider: [place], [address] . tel:[phone] Family History Family Member Type Diagnosis Age At Onset No Information Payers Payer name Insurance type Covered libertarian ID Zak mckay(s) [employer] Medicare Advantage HMO/POS [id number] Social History Type Description Quantity Date [...]
--- OUTSIDE RECORDS SUMMARY | 2024-05-08 14:03 | XMS_ITS | Clinical Summary ---
Author Organization [facility] [address] [place] [address] [place] [id number] Care Team Providers Care Counter Intelligence Agent Name Role Phone Minerva Serna MD Unavailable [phone] Alfie Vegas MD Unavailable [phone] Toni Cintron MD Unavailable [phone] Brendan Thomas DPLinda Unavailable [phone] Mary Diaz MD Primary Care Provider Vivi Wood CNM Unavailable Tahmina Marvin MD Unavailable [phone] Cristofer Alicia MD Unavailable [phone] Prashanth Lee MD Unavailable Roberto Carlos Fregoso MD Unavailable García Siddiqui DO Unavailable [phone] Ana Delarosa MD Unavailable Orion Sommer MD Unavailable [phone] Alban Hernandez MD Unavailable Rehana Mckeon MD Unavailable Allergies Active Allergy Reactions Criticality Noted Date Comments Adhesive Other (See comments) Low 05/16/2022 Tears skin Lziwhigd-Kkmoxhfeet-Rdiyawbr n Itching,Rash Medium 06/07/2015 Venom-Honey Bee Swelling [...] Nasal saline spray (Simply saline, Little Remedies, [place], [place]) 2 second sprays or 2 squeezes into [...] evaluation Assessment & Plan (04/30/2023 5:32 PM BURNISHING MACHINE OPERATOR): Noted on more recent labs. Patient had some blood work through her specialists. I have encouraged her to get me a copy of these to review Transaminitis 04/30/2023 Assessment & Plan (04/30/2023 5:35 PM BURNISHING MACHINE OPERATOR): Present since least 2021. The elevated liver [...] 10/28/2022 Assessment & Plan (04/30/2023 5:32 PM BURNISHING MACHINE OPERATOR): Chronic calcification noted on prior imaging. Risk [...] symptoms Assessment & Plan (04/30/2023 5:32 PM BURNISHING MACHINE OPERATOR): Chronic but symptomatically improving. Working with Podiatry. [...] shoe. Defer care to specialists Intestinal intussusception ([facility]) 08/16/2022 Overview (08/16/2022): Multiple areas [...] needed. Assessment & Plan (05/13/2023 11:09 AM BURNISHING MACHINE OPERATOR): Chronic problem. Clinically euthyroid at this time. Reviewed recent labs 02/21 & 02/27 that were vastly different. Will repeat TFTs today at [facility]. Verified that she uses mychart. Aware to check results/results letter in mychart. Will contact by phone if needed. Aware to take 1st thing in morning, 30-60 minutes before food/drink/other medications. Assessment & Plan (04/30/2023 5:31 PM BURNISHING MACHINE OPERATOR): Chronic. Follows with endocrinology. Continue thyroid medication per specialist Assessment & Plan (01/28/2023 11:38 AM BURNISHING MACHINE OPERATOR): Chronic problem. Improved on current levothyroxine 112mcg [...] daily. TSH/T4 ordered. Verified that she uses [facility]. Aware to check results/results letter in [facility]. Will contact by phone if needed. Will send 90 day refill to [facility] once labs result Verified phone #/address if I need to call her. Pelvic floor dysfunction 04/24/2022 Assessment & Plan (04/24/2022 8:51 AM BURNISHING MACHINE OPERATOR): -no myofascial pain noted on today's exam -continue performing PFPT exercises Vaginal atrophy 04/24/2022 Assessment & Plan (04/24/2022 8:51 AM BURNISHING MACHINE OPERATOR): -discussed decreasing VET to twice per week, [...] working Assessment & Plan (04/24/2022 8:55 AM BURNISHING MACHINE OPERATOR): -she is not using the the #1 [...] well Assessment & Plan (04/30/2023 5:31 PM BURNISHING MACHINE OPERATOR): Chronic. Struggles some with anxiety at times [...] legs Assessment & Plan (04/30/2023 5:31 PM BURNISHING MACHINE OPERATOR): Chronic. Continue medication care per pain management [...] report. Assessment & Plan (04/30/2023 5:33 PM BURNISHING MACHINE OPERATOR): Noted previously. These were not mentioned on [...] Stable Assessment & Plan (04/30/2023 5:31 PM BURNISHING MACHINE OPERATOR): Chronic. Continue medication and care per pain management Assessment & Plan (10/28/2022 7:11 PM CDT): Chronic. Continue medication and care per pain management Long-term current use of opiate analgesic 2021 Overview (04/08/2022): Dr. Yon Brown Assessment & Plan (04/30/2023 5:33 PM BURNISHING MACHINE OPERATOR): Chronic. Medication care per pain management Osteopenia of multiple sites 02/12/2021 Depressive disorder 01/28/2021 Overview (04/08/2022): Vivi Marin Assessment & Plan (04/30/2023 5:30 PM BURNISHING MACHINE OPERATOR): Chronic. Mood is stable. Continue medication care [...] monoplegia Assessment & Plan (04/30/2023 5:30 PM BURNISHING MACHINE OPERATOR): Chronic. Continue medication and care per crayon painter Assessment & Plan (10/28/2022 7:11 PM CDT): Chronic. Continue medication and care per crayon painter Primary localized osteoarthritis of pelvic regio n and thigh 01/28/2021 Tobacco dependence in remission 01/28/2021 Assessment & Plan (04/30/2023 5:33 PM BURNISHING MACHINE OPERATOR): Chronic. Patient will be due for updated [...] management Assessment & Plan (04/30/2023 5:27 PM BURNISHING MACHINE OPERATOR): Chronic. Can continue medication care for pain management. She is on gabapentin, duloxetine, hydrocodone, and ropinirole Assessment & Plan (10/28/2022 7:11 PM CDT): Chronic. Can continue medication care for pain management. She is on gabapentin, duloxetine, hydrocodone known and ropinirole Assessment & Plan (02/14/2020 4:43 PM BURNISHING MACHINE OPERATOR): Patient has 10 day history of low [...] that she continue with Dr. Carreno in [place] as she sees no need to have [...] 03/24/2017 Assessment & Plan (04/30/2023 5:31 PM BURNISHING MACHINE OPERATOR): Chronic. Symptomatically has improved. Monitor. Assessment & [...] doses Assessment & Plan (04/30/2023 5:30 PM BURNISHING MACHINE OPERATOR): Chronic. Follows with endocrinology. Continue medication and care per specialists Assessment & Plan (02/12/2021 12:34 PM BURNISHING MACHINE OPERATOR): With subclinical hyperthyroidism. Will recheck free T4 and free T3 As on a day stay normal, will continue to monitor. 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 Breathing controlled. We will continue Spiriva and p.r.n. albuterol. Declines need for adjustment Assessment & Plan (04/30/2023 5:27 PM BURNISHING MACHINE OPERATOR): Chronic. Breathing is relatively stable. Denies significant shortness of breath and wheezing currently. Continue current inhaler Assessment & Plan (10/28/2022 7:09 PM CDT): Breathing is relatively stable. Denies significant shortness of breath and wheezing currently. Continue current inhaler Hyperlipidemia 07/21/2009 Assessment & Plan (10/30/2023 6:31 PM CDT): Chronic. On rosuvastatin. We will continue Assessment & Plan (04/30/2023 5:30 PM BURNISHING MACHINE OPERATOR): Chronic. Patient has a degree of transaminitis [...] now. Assessment & Plan (04/30/2023 5:31 PM BURNISHING MACHINE OPERATOR): Chronic. Blood pressure is very tightly controlled [...] (04/05/2022): Added automatically from request for surgery [id number] Exposure of implanted vaginal mesh 11/20/2021 04/08/2022 Overview (11/20/2021): Added automatically from request for surgery [id number] Radiculopathy, lumbosacral region 05/09/2021 04/08/2022 Other obesity due to excess calories 05/09/2021 04/08/2022 Gastroesophageal reflux disease 01/28/2021 04/08/2022 Lymphadenopathy 01/28/2021 04/08/2022 Mild chronic obstructive pulmonary disease 01/28/2021 10/28/2022 Encounter to establish care 01/28/2021 04/08/2022 Assessment & Plan (01/28/2021 2:15 PM BURNISHING MACHINE OPERATOR): A visit to establish care has been performed today. Flor Gallego is not up to date on screening tests. She is in need of Mammogram, Lung cancer screen and hepatitis c screen- these have been ordered. She is up to date on needed preventative vaccinations. Cervical radiculopathy 01/28/202104/08 Assessment & Plan (01/28/2021 2:17 PM BURNISHING MACHINE OPERATOR): Her pain management was covered by her neurologist will need new pain doctor (her neurologist is leaving the area at the end of the month) Erythrocytosis 02/24/2020 04/08/2022 Pachyderma of larynx 06/26/2017 023 WILFRED (obstructive sleep apnea) 06/26/2017 04/08/2022 Hot thyroid nodule 02/20/2017 Assessment & Plan (03/28/2022 1:56 PM BURNISHING MACHINE OPERATOR): Chronic problem, not at goal. 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 She is having increasing trouble swallowing and [...] 06/04/2022 Assessment & Plan (02/12/2021 12:45 PM BURNISHING MACHINE OPERATOR): Risk of cardiac arrhythmias with discussed. The patient is following with cardiology Bone density also requested due to the risk of bone density loss in patient with subclinical hyperthyroidism Assessment & Plan (02/06/2017 4:43 PM BURNISHING MACHINE OPERATOR): Check TFT's Treat as indicated Assessment & Plan (01/09/2017 4:27 PM CDT): Long standing, related to MNG Repeat TFT's Recommendations to follow Most likely will watch without specific intervention. Multinodular goiter (nontoxic) 01/09/2017 09/26/2022 Assessment & Plan (02/12/2021 12:55 PM BURNISHING MACHINE OPERATOR): With FNA showing follicular lesion of unknown significance. With [facility] molecular testing, negative.less than 4 % change of malignancy. Will repeat thyroid ultrasound if not changes will continue monitoring Assessment & Plan (02/06/2017 4:42 PM BURNISHING MACHINE OPERATOR): Differential diagnosis would include benign nodule (macrofollicular [...] Type Department Care Team Description 05/04/2024 Telephone [facility] Medical Group Diabetes and Endocrinology [address] [place] [phone] Mariam Shah, VOCATIONAL COORDINATOR Test Results (Labs) 03/09/2024 Orders Only [facility] Health Information Management [address] [place] [id number] Scanning, Provider 02/11/2024 Telephone [facility] Medical [facility] Diabetes and Endocrinology [address] [place] [phone] Mariam Shah, VOCATIONAL COORDINATOR Test Results (Labs) from Last 3 Months Immunizations Name Administration Dates Next Due Influenza, Quadrivalent, Sadia l Culture-based MDCK, Preservative Free, Antibiotic Free, Intramuscular 05/01/2022 Influenza, Quadrivalent, Split, Intramuscular Influenza, Quadrivalent, Spl it, Preservative Free, Intramuscular 05/13/2023,01/24/2021 The Spoken Thought SARS-CoV-2 Monovalent Vaccination (12+ Yrs) PURPLE 09/09/2020,08/19/2020 [...] Osteoporosis COPD (chronic obstructive pu lmonary disease) ([facility]) Glaucoma Migraines Anxiety Cataract Just starting Cervical radiculopathy 01/28/2021 Exposure of implanted vagina l mesh ([facility]) 11/20/2021 [facility] [id number] Chronic low back pain Restless leg Erythrocytosis 03/09/2020 secondary erythr ocytosis Jak2 - saw Heme Goiter 04/05/2022 Added harley silva from request for surgery [id number] Coronary artery calcificatio n seen on CAT [...] on file Legal Sex Female 7:24 PM BURNISHING MACHINE OPERATOR Gender Identity Female 02/08/2020 5:48 PM BURNISHING MACHINE OPERATOR Sexual Orientation Straight 02/08/2020 5: 48 PM BURNISHING MACHINE OPERATOR Obstetrics History Para Term AB IAB SAB [...] Completed 05/13/2023 Medical Devices Implanted Type Area Lead Pressman Device Identifier Shelf Expiration Date Model / Serial / Lot Ethicon Endo Surgery Tvt Prolene 45x1.1cm Tape Mesh Transvaginal Blue [id number] - [id number] Implanted:Qty: 1 on 05/29/2022 by Aura Driscoll MD at [facility] Mesh N/A: Urethra Ethicon Endo Surgery [id number] 11/21/2024 [id number] / / Row [facility] [employer] Sls-Clip Ligate Triangular Wire Kathleen Groove Small Chevron Clip Latex Free R2532-0 - [id number] Implanted:Qty: 2 on 05/20/2022 by Sameer Alan MD at [facility] [employer] [id number] / / Row [facility] [employer] Sls-Clip Ligate Triangular Wire Kathleen Groove Small Chevron Clip Latex Free [id number] - [id number] Implanted:Qty: 2 on 05/20/20[id number] / / Procedures Procedure Name Priority Date/Time Associated Diagnosis Comments TSH Routine 04/21/2024 11:58 AM BURNISHING MACHINE OPERATOR Postoperative hypothyroidism T4, FREE Routine 04/21/2024 11:58 AM BURNISHING MACHINE OPERATOR Postoperative hypothyroidism SCAN - RADIOLOGY/IMAGING 03/09/2024 MAMMOGRAPHY Routine 10/31/2023 2:52 PM CDT HEPATITIS C SCREENING Routine 04/06/2023 COLONOSCOPY Routine 09/18/2016 from Last 3 Months or Most Recently Relevant to Health Maintenance Results * TSH (04/21/2024 11:58 AM BURNISHING MACHINE OPERATOR) TSH 0.800 0.450 - 4.500 uIU/mL [facility] - 01 Blood 04/21/2024 11:5 8 AM BURNISHING MACHINE OPERATOR 04/21/2024 Narrative [facility] - 04/22/2024 9:10 AM BURNISHING MACHINE OPERATOR Performed at: [facility] [id number] Spinner Tender: Jack Winslow PhD, Phone: [phone] us Mariam Shah VOCATIONAL COORDINATOR LAB BLOOD ORDERABLES Armida l Result Performing Organization Address [facility] Co de Phone Number [facility] - * T4, free (04/21/2024 11:58 AM BURNISHING MACHINE OPERATOR) T4,Free(Direct) 1.43 0.82 - 1.77 ng/dL [facility] - 01 Blood 04/21/2024 11:5 8 AM BURNISHING MACHINE OPERATOR 04/21/2024 Narrative [facility] - 04/22/2024 9:10 AM BURNISHING MACHINE OPERATOR Performed at: [facility] [id number] Spinner Tender: Jack Winslow PhD, Phone: [phone] us Mariam Shah VOCATIONAL COORDINATOR LAB BLOOD ORDERABLES Armida l Result Performing Organization Address [facility] Co de Phone Number [facility] - 01 * SCAN - RADIOLOGY/IMAGING (03/09/2024) Anatomical Region Laterality Modality Other us Provider Scanning Final Result * MAMMOGRAPHY (10/31/2023 2:52 PM CDT) Mammography Normal Historical Provider HEALTH MAINTENANCE Final Result * HEPATITIS C SCREENING (04/06/2023) SCRIBED HCV ab nonreactive Comment:Patient had checked through GI. She showed me a copy of the results through her [employer] garcia Historical Provider HEALTH MAINTENANCE Final Result * Colonoscopy (09/18/2016) Anatomical Region Laterality Modality Other Narrative 09/18/2016 Polypectomy; repeat in 3 years Historical Provider ENDOSCOPY PROCEDURES Armida l Result from Last 3 Months or Most Recently Relevant to Health Maintenance Insurance MEDICARE SOLUTIONS [facility] MEDIC[facility] Address: [address] [address] [employer] MED[employer] SOL[employer]IONS MEDICARE SOLUTIONS [employer] Advance Directives For more information, please contact: [phone] * Full Code (Latest Code Status on File) Date Activated Date Inactivated Comments 05/20/2022 3:24 PM 05/21/2022 2:16 PM * Full Code Date Activated Date Inactivated Comments 02/12/2022 11:40 AM 02/12/2022 6:05 PM Care Teams Counter Intelligence Agent Relationship Specialty Start Date End Date Mary Diaz MD [address] [place] [address] PCP - General Family Practice 04/05/22 Minerva Serna MD [address] [address] Consulting Physician Gastroenterology 01/28/21 Alfie Vegas MD [address] [address] Consulting Physician Hematology 01/28/21 Toni Cintron MD [address] [place] [address] Consulting Physician Obstetrics and Gynecology 01/28/21 Brendan Thomas DPM [address] [place] [address] Consulting Physician Foot and Ankle Surg 01/28/21 Vivi Wood CNM [address] [place] [address] Nurse Practitioner Psychiatry 04/08/22 Tahmina Marvin MD [address] [facility] [address] [place] [address] Referring Physician Pain Management 04/08/22 Cristofer Alicia MD [address] [place] [id number] Referring Physician Neurosurgery 04/08/22 [place] [address] [facility] [address] [place] [address] Consulting Physician Endocrinology Diabetes & Metabolism 04/08/22 Roberto Carlos Fregoso MD [address] [facility] [place] [address] Referring Physician Otolaryngology 04/08/22 García Siddiqui DO 9 [facility] [place] [address] Referring Physician Surgery 04/08/22 Ana Delarosa MD [address] [place] [address] Consulting Physician Sleep Medicine 04/08/22 [place] [address] [place] [address] Surgeon Orthopedic Surgery 04/08/22 [place] [address] [place] [address] Referring Physician Orthopedic Surgery 04/08/22 [place] [address] [facility] [address] [place] [address] Consulting Physician Cardiology 04/08/22
--- OUTSIDE RECORDS SUMMARY | 2024-05-08 14:03 | XMS_ITS | Referral Summary ---
Author Organization [address] Address [address] [place] [phone] Care Team Providers Care Manager Lighting Name Role Phone Minerva Serna MD Unavailable Alfie Vegas MD Unavailable [phone] Toni Cintron MD Unavailable [phone] Brendan Thomas DPLinda Unavailable [phone] Mary Diaz MD Primary Care Provider Vivi Wood CNM Unavailable [phone] Tahmina Marvin MD Unavailable Cristofer Alicia MD Unavailable Prashanth Lee MD Unavailable Roberto Carlos Fregoso MD Unavailable García Siddiqui DO Unavailable [phone] Ana Delarosa MD Unavailable [phone] Orion Sommer MD Unavailable Alban Hernandez MD Unavailable Rehana Mckeon MD Unavailable Encounters Date Type Department Care Team Description 05/04/2024 Telephone [facility] Diabetes and Endocrinology [address] [place] [address] [place] [address] Mariam Shah, QUAHOGGER Test Results (Labs) 03/09/2024 Orders Only [facility] Health Information Management [address] [place] [id number] Scanning, Provider 02/11/2024 Telephone [facility] Diabetes and Endocrinology [address] [place] [phone] Mariam Shah, STACEY Test Results (Labs) from Last 3 Months Allergies Active Allergy Reactions Criticality Noted Date Comments Adhesive Other (See comments) Low 05/16/2022 Tears skin Roryyhil-Zxzunqaucf-Eyctahsx n Itching,Rash Medium 06/07/2015 Venom-Honey Bee Swelling [...] Nasal saline spray (Simply saline, Little Remedies, [place], [place]) 2 second sprays or 2 squeezes into [...] evaluation Assessment & Plan (04/30/2023 5:32 PM BRIM CUTTER): Noted on more recent labs. Patient had some blood work through her specialists. I have encouraged her to get me a copy of these to review Transaminitis 04/30/2023 Assessment & Plan (04/30/2023 5:35 PM BRIM CUTTER): Present since least 2021. The elevated liver [...] 10/28/2022 Assessment & Plan (04/30/2023 5:32 PM BRIM CUTTER): Chronic calcification noted on prior imaging. Risk [...] symptoms Assessment & Plan (04/30/2023 5:32 PM BRIM CUTTER): Chronic but symptomatically improving. Working with Podiatry. [...] shoe. Defer care to specialists Intestinal intussusception ([facility]) 08/16/2022 Overview (08/16/2022): Multiple areas of short [...] today at [facility]. Verified that she uses [facility]. Aware to check results/results letter in mychart. Will contact by phone if needed. Assessment & Plan (05/13/2023 11:09 AM BRIM CUTTER): Chronic problem. Clinically euthyroid at this time. Reviewed recent labs 02/21 & 02/27 that were vastly different. Will [facility]. Verified that she uses mychart. Aware to check results/results letter in [facility]. Will contact by phone if needed. Aware to take 1st thing in morning, 30-60 minutes before food/drink/other medications. Assessment & Plan (04/30/2023 5:31 PM BRIM CUTTER): Chronic. Follows with endocrinology. Continue thyroid medication per specialist Assessment & Plan (01/28/2023 11:38 AM BRIM CUTTER): Chronic problem. Improved on current levothyroxine 112mcg [...] mychart. Aware to check results/results letter in [employer]. Will contact by phone if needed. Will send 90 day refill to [facility] once labs result Verified phone #/address if I need to call her. Pelvic floor dysfunction 04/24/2022 Assessment & Plan (04/24/2022 8:51 AM BRIM CUTTER): -no myofascial pain noted on today's exam -continue performing PFPT exercises Vaginal atrophy 04/24/2022 Assessment & Plan (04/24/2022 8:51 AM BRIM CUTTER): -discussed decreasing VET to twice per week, [...] working Assessment & Plan (04/24/2022 8:55 AM BRIM CUTTER): -she is not using the the #1 [...] well Assessment & Plan (04/30/2023 5:31 PM BRIM CUTTER): Chronic. Struggles some with anxiety at times [...] legs Assessment & Plan (04/30/2023 5:31 PM BRIM CUTTER): Chronic. Continue medication care per pain management [...] report. Assessment & Plan (04/30/2023 5:33 PM BRIM CUTTER): Noted previously. These were not mentioned on [...] Stable Assessment & Plan (04/30/2023 5:31 PM BRIM CUTTER): Chronic. Continue medication and care per pain management Assessment & Plan (10/28/2022 7:11 PM CDT): Chronic. Continue medication and care per pain management Long-term current use of opiate analgesic 2021 Overview (04/08/2022): Seecharli pain management, Dr. Marvin Assessment & Plan (04/30/2023 5:33 PM BRIM CUTTER): Chronic. Medication care per pain management Osteopenia of multiple sites 02/12/2021 Depressive disorder 01/28/2021 Overview (04/08/2022): Vivi Marin Assessment & Plan (04/30/2023 5:30 PM BRIM CUTTER): Chronic. Mood is stable. Continue medication care [...] monoplegia Assessment & Plan (04/30/2023 5:30 PM BRIM CUTTER): Chronic. Continue medication and care per painting supervisor Assessment & Plan (10/28/2022 7:11 PM CDT): Chronic. Continue medication and care per painting supervisor Primary localized osteoarthritis of pelvic regio n and thigh 01/28/2021 Tobacco dependence in remission 01/28/2021 Assessment & Plan (04/30/2023 5:33 PM BRIM CUTTER): Chronic. Patient will be due for updated [...] management Assessment & Plan (04/30/2023 5:27 PM BRIM CUTTER): Chronic. Can continue medication care for pain management. She is on gabapentin, duloxetine, hydrocodone, and ropinirole Assessment & Plan (10/28/2022 7:11 PM CDT): Chronic. Can continue medication care for pain management. She is on gabapentin, duloxetine, hydrocodone known and ropinirole Assessment & Plan (02/14/2020 4:43 PM BRIM CUTTER): Patient has 10 day history of low [...] that she continue with Dr. Carreno in [place] as she sees no need to have [...] 03/24/2017 Assessment & Plan (04/30/2023 5:31 PM BRIM CUTTER): Chronic. Symptomatically has improved. Monitor. Assessment & [...] doses Assessment & Plan (04/30/2023 5:30 PM BRIM CUTTER): Chronic. Follows with endocrinology. Continue medication and care per specialists Assessment & Plan (02/12/2021 12:34 PM BRIM CUTTER): With subclinical hyperthyroidism. Will recheck free T4 and free T3 As on a day stay normal, will continue to monitor. 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 Breathing controlled. We will continue Spiriva and p.r.n. albuterol. Declines need for adjustment Assessment & Plan (04/30/2023 5:27 PM BRIM CUTTER): Chronic. Breathing is relatively stable. Denies significant shortness of breath and wheezing currently. Continue current inhaler Assessment & Plan (10/28/2022 7:09 PM CDT): Breathing is relatively stable. Denies significant shortness of breath and wheezing currently. Continue current inhaler Hyperlipidemia 07/21/2009 Assessment & Plan (10/30/2023 6:31 PM CDT): Chronic. On rosuvastatin. We will continue Assessment & Plan (04/30/2023 5:30 PM BRIM CUTTER): Chronic. Patient has a degree of transaminitis [...] now. Assessment & Plan (04/30/2023 5:31 PM BRIM CUTTER): Chronic. Blood pressure is very tightly controlled [...] (04/05/2022): Added automatically from request for surgery [id number] Exposure of implanted vaginal mesh 11/20/2021 04/08/2022 Overview (11/20/2021): Added automatically from request for surgery [id number] Radiculopathy, lumbosacral region 05/09/2021 04/08/2022 Other obesity due to excess calories 05/09/2021 04/08/2022 Gastroesophageal reflux disease 01/28/2021 04/08/2022 Lymphadenopathy 01/28/2021 04/08/2022 Mild chronic obstructive pulmonary disease 01/28/2021 10/28/2022 Encounter to establish care 01/28/2021 04/08/2022 Assessment & Plan (01/28/2021 2:15 PM BRIM CUTTER): A visit to establish care has been performed today. Flor Gallego is not up to date on screening tests. She is in need of Mammogram, Lung cancer screen and hepatitis c screen- these have been ordered. She is up to date on needed preventative vaccinations. Cervical radiculopathy 01/28/202104/08 Assessment & Plan (01/28/2021 2:17 PM BRIM CUTTER): Her pain management was covered by her neurologist will need new pain doctor (her neurologist is leaving the area at the end of the month) Erythrocytosis 02/24/2020 04/08/2022 Pachyderma of larynx 06/26/2017 023 WILFRED (obstructive sleep apnea) 06/26/2017 04/08/2022 Hot thyroid nodule 02/20/2017 Assessment & Plan (03/28/2022 1:56 PM BRIM CUTTER): Chronic problem, not at goal. She has h/o toxic MNG, with both hot and possible cold nodule on I-123 scan, low risk (per [facility]) FNA x 2 in [id number]. She is having increasing trouble swallowing and [...] 06/04/2022 Assessment & Plan (02/12/2021 12:45 PM BRIM CUTTER): Risk of cardiac arrhythmias with discussed. The patient is following with cardiology Bone density also requested due to the risk of bone density loss in patient with subclinical hyperthyroidism Assessment & Plan (02/06/2017 4:43 PM BRIM CUTTER): Check TFT's Treat as indicated Assessment & Plan (01/09/2017 4:27 PM CDT): Long standing, related to MNG Repeat TFT's Recommendations to follow Most likely will watch without specific intervention. Multinodular goiter (nontoxic) 01/09/2017 09/26/2022 Assessment & Plan (02/12/2021 12:55 PM BRIM CUTTER): With FNA showing follicular lesion of unknown significance. With [facility] molecular testing, negative.less than 4 % change of malignancy. Will repeat thyroid ultrasound if not changes will continue monitoring Assessment & Plan (02/06/2017 4:42 PM BRIM CUTTER): Differential diagnosis would include benign nodule (macrofollicular [...] on file Legal Sex Female 7:24 PM BRIM CUTTER Gender Identity Female 02/08/2020 5:48 PM BRIM CUTTER Sexual Orientation Straight 02/08/2020 5: 48 PM BRIM CUTTER Last Filed Vital Signs Vital Sign Reading [...] on file Medical Devices Implanted Type Area Construction Foreman Device Identifier Shelf Expiration Date Model / Serial / Lot Ethicon Endo Surgery Tvt Prolene 45x1.1cm Tape Mesh Transvaginal Blue [id number] - [id number] Implanted:Qty: 1 on 05/29/2022 by Aura Driscoll MD at [facility] Mesh N/A: Urethra Ethicon Endo Surgery [id number] 11/21/2024 [id number] / / [employer] Sls-Clip Ligate Triangular Wire Kathleen Groove Small Chevron Clip Latex Free R8965-8 - [id number] Implanted:Qty: 2 on 05/20/2022 by Sameer Alan MD at [facility] Intrnl Inc [id number] / / [facility] Sls-Clip Ligate Triangular Wire Kathleen Groove Small Chevron Clip Latex Free Q8329-1 - [id number] Implanted:Qty: 2 on 05/20/2022 by Sameer Alan MD at [facility] [id number] / / Procedures Procedure Name Priority Date/Time Associated Diagnosis Comments TSH Routine 04/21/2024 11:58 AM BRIM CUTTER Postoperative hypothyroidism T4, FREE Routine 04/21/2024 11:58 AM BRIM CUTTER Postoperative hypothyroidism SCAN - RADIOLOGY/IMAGING 03/09/2024 MAMMOGRAPHY Routine 10/31/2023 2:52 PM CDT HEPATITIS C SCREENING Routine 04/06/2023 COLONOSCOPY Routine 09/18/2016 from Last 3 Months or Most Recently Relevant to Health Maintenance Results * TSH (04/21/2024 11:58 AM BRIM CUTTER) TSH 0.800 0.450 - 4.500 uIU/mL [facility] - 01 Blood 04/21/2024 11:5 8 AM BRIM CUTTER 04/21/2024 Narrative [facility] - 04/22/2024 9:10 AM BRIM CUTTER Performed at: [facility] [address] [id number] Supervisor Wet End: Jack Winslow PhD, Phone: [phone] us Mariam Shah QUAHOGGER LAB BLOOD ORDERABLES Armida l Result [facility] - 01 * T4, free (04/21/2024 11:58 AM BRIM CUTTER) T4,Free(Direct) 1.43 0.82 - 1.77 ng/dL [facility] - 01 Blood 04/21/2024 11:5 8 AM BRIM CUTTER 04/21/2024 Narrative [facility] - 04/22/2024 9:10 AM BRIM CUTTER Performed at: [facility] [id number] Supervisor Wet End: Jack Winslow PhD, Phone: [phone] Mariam Shah QUAHOGGER LAB BLOOD ORDERABLES Armida l Result [facility] - 01 * SCAN - RADIOLOGY/IMAGING (03/09/2024) Anatomical Region Laterality Modality Other Provider Scanning Final Result * MAMMOGRAPHY (10/31/2023 2:52 PM CDT) Mammography Normal Historical Provider HEALTH MAINTENANCE Final Result * HEPATITIS C SCREENING (04/06/2023) SCRIBED HCV ab nonreactive Comment:Patient had checked through GI. She showed me a copy of the results through her Tealium garcia Historical Provider HEALTH MAINTENANCE Final Result * Colonoscopy (09/18/2016) Anatomical Region Laterality Modality Other Narrative 09/18/2016 Polypectomy; repeat in 3 years Historical Provider ENDOSCOPY PROCEDURES Armida l Result from Last 3 Months or Most Recently Relevant to Health Maintenance Insurance MEDICARE SOLUTIONS IDPA MEDICARE [place] MEDICARE SOLUTIONS IDPA Advance Directives For more information, please contact: [phone] * Full Code (Latest Code Status on File) Date Activated Date Inactivated Comments 05/20/2022 3:24 PM 05/21/2022 2:16 PM * Full Code Date Activated Date Inactivated Comments 02/12/2022 11:40 AM 02/12/2022 6:05 PM Care Teams Manager Lighting Relationship Specialty Start Date End Date Mary Diaz MD [address] [place] [address] PCP - General Family Practice 04/05/22 Minerva Serna MD [address] [place] [address] Consulting Physician Gastroenterology 01/28/21 Alfie Vegas MD [address] [place] [address] Consulting Physician Hematology 01/28/21 Toni Cintron MD [address] [place] [address] Consulting Physician Obstetrics and Gynecology 01/28/21 Brendan Thomas DPM [address] [place] [address] Consulting Physician Foot and Ankle Surg 01/28/21 Vivi Wood CNM [address] [place] [address] Nurse Practitioner Psychiatry 04/08/22 Tahmina Marvin MD [address] [facility] [address] [place] [address] Referring Physician Pain Management 04/08/22 Cristofer Alicia MD [address] [place] [address] Referring Physician Neurosurgery 04/08/22 [place] [address] [address] [facility] [address] [place] [address] Consulting Physician Endocrinology Diabetes & Metabolism 04/08/22 Roberto Carlos Fregoso MD [address] [facility] [address] Referring Physician Otolaryngology 04/08/22 García Siddiqui DO [address] [facility] [address] Referring Physician Surgery 04/08/22 Ana Delarosa MD [address] [facility] [address] [place] [address] Consulting Physician Sleep Medicine 04/08/22 [place] [address] [place] [address] Surgeon Orthopedic Surgery 04/08/22 [place] [address] [place] [address] Referring Physician Orthopedic Surgery 04/08/22 [place] [address] [address] Consulting Physician Cardiology 04/08/22
--- OUTSIDE RECORDS SUMMARY | 2024-05-08 14:03 | XMS_ITS | Referral Summary ---
Author Organization [facility] [employer] Address [address] [place] [address] Care Team Providers Care Hydrogen Power Plant Manager Name Role Phone Slick Quispe MD Primary Care Provider Source Comments [facility],non-owned Affiliates and Associated Physician Practices is amultiple site organization consisting of ambulatory clinics and hospital sitesin [place], [place] and [place]. This disclosure is being madepursuant to the Care Everywhere program and may not contain all information available regarding this patient. Last updated 17.[facility] [employer] Encounters Date Type Department Care Team Description [...] mouth at bedtime 10/30/2021 Active HYDROcodone-acetam inophen ([place]) 10-325 MG tablet Take 1 tablet by [...] Sex Assigned at Female 05/20/2022 6:45 PM ENTRY LEVEL BUSINESS ANALYST Gender Identity Female 05/20/2022 6:45 PM ENTRY LEVEL BUSINESS ANALYST Sexual Orientation Straight 05/20/2022 6: 45 PM ENTRY LEVEL BUSINESS ANALYST Last Filed Vital Signs Vital Sign Reading Time Taken Comments Blood Pressure 153/66 02/18/2022 9:00 AM ENTRY LEVEL BUSINESS ANALYST Pulse 66 02/18/2022 9:00 AM ENTRY LEVEL BUSINESS ANALYST Temperature 37 C (98.6 F) 02/18/2022 9:00 AM ENTRY LEVEL BUSINESS ANALYST Respiratory Rate 18 01/16/2022 9:22 AM CDT Oxygen Saturation 98% 02/18/2022 9:00 AM ENTRY LEVEL BUSINESS ANALYST Inhaled Oxygen Concentration - - Weight 72.6 kg (160 lb) 03/11/2024 9:26 AM ENTRY LEVEL BUSINESS ANALYST Height 162.6 cm (5' 4 ) 03/11/2024 9:26 AM ENTRY LEVEL BUSINESS ANALYST Body Mass Index 27.46 03/11/2024 9:26 AM ENTRY LEVEL BUSINESS ANALYST Plan of Treatment Not on file Procedures Procedure Name Priority Date/Time Associated Diagnosis Comments MAMMOGRAM 06/18/2022 from Last 3 Months or Most Recently Relevant to Health Maintenance Results * MAMMOGRAM (06/18/2022) Anatomical Region Laterality Modality Other 06/18/2022 Narrative 06/18/2022 Ordered by an unspecified provider. Scanned Document SCANNING ONLY from Last 3 Months or Most Recently Relevant to Health Maintenance Care Teams Hydrogen Power Plant Manager Relationship Specialty Start Date End Date Slick Quispe MD [address] [place] [address] PCP - General 08/02/21
--- OUTSIDE RECORDS SUMMARY | 2024-05-08 14:03 | XMS_ITS | Clinical Summary ---
Author Organization [facility] Address [address] [place] [address] Care Team Providers Care Pond Supervisor Name Role Phone Mary Diaz MD Primary [...] age to complete this topic Insurance [facility] [address] Care Teams Pond Supervisor Relationship Specialty Start Date End Date Mary Diaz MD [address] [place] [address] PCP - General SPORTS MEDICINE 06/20/22
--- OUTSIDE RECORDS SUMMARY | 2024-05-08 14:03 | XMS_ITS | Clinical Summary ---
Author Organization [facility] [employer] Address [address] [place] [address] Care Team Providers Care Inspector Semiconductor Wafer Name Role Phone Slick Quispe MD Primary Care Provider Source Comments [facility] [employer],non-owned Affiliates and Associated Physician Practices is amultiple site organization consisting of ambulatory clinics and hospital sitesin [place], [place], [place] and [place]. This disclosure is being madepursuant to the Care Everywhere program and may not contain all information available regarding this patient. Last updated 17.[facility] [employer] Allergies No known active allergies Medications * [...] mouth at bedtime 10/30/2021 Active HYDROcodone-acetam inophen ([place]) 10-325 MG tablet Take 1 tablet by [...] Sex Assigned at Female 05/20/2022 6:45 PM GENERAL WAREHOUSE ASSOCIATE Gender Identity Female 05/20/2022 6:45 PM GENERAL WAREHOUSE ASSOCIATE Sexual Orientation Straight 05/20/2022 6: 45 PM GENERAL WAREHOUSE ASSOCIATE Last Filed Vital Signs Vital Sign Reading Time Taken Comments Blood Pressure 153/66 02/18/2022 9:00 AM GENERAL WAREHOUSE ASSOCIATE Pulse 66 02/18/2022 9:00 AM GENERAL WAREHOUSE ASSOCIATE Temperature 37 C (98.6 F) 02/18/2022 9:00 AM GENERAL WAREHOUSE ASSOCIATE Respiratory Rate 18 01/16/2022 9:22 AM CDT Oxygen Saturation 98% 02/18/2022 9:00 AM GENERAL WAREHOUSE ASSOCIATE Inhaled Oxygen Concentration - - Weight 72.6 kg (160 lb) 03/11/2024 9:26 AM GENERAL WAREHOUSE ASSOCIATE Height 162.6 cm (5' 4 ) 03/11/2024 9:26 AM GENERAL WAREHOUSE ASSOCIATE Body Mass Index 27.46 03/11/2024 9:26 AM GENERAL WAREHOUSE ASSOCIATE Plan of Treatment Health Maintenance Due Date [...] Recently Relevant to Health Maintenance Care Teams Inspector Semiconductor Wafer Relationship Specialty Start Date End Date Slick Quispe MD [address] [place] [phone] PCP - General 08/02/21
--- OUTSIDE RECORDS SUMMARY | 2024-05-08 14:03 | XMS_ITS | Encounter Summary ---
Author Organization [facility] Address [address] [facility] [place] [place] [address] Phone Care Team Providers Care Engine Watchman Name Role Phone Mary Diaz MD Primary Care Provider [phone] Encounter Details Date Type Department Care Team (Latest Contact Info) Description 05/13/2023 Transcribe Orders [facility] Preop/Pacu II [address] [place] [address] Yamilex Beyer, DPM [address] [place] [address] Pre-op testing (Primary Dx) Social History Tobacco Use Types Packs/Day Years Used Date Smoking Tobacco: Former Cigarettes 3 37 1 972 - 2009 Smokeless Tobacco: Never Alcohol Use Standard Drinks/Week Comments No 0 (1 standard drink = 0.6 oz pur e alcohol) Comments No Sex and Gender Information Value Date Recorded Sex Assigned at Female 05/07/2023 5:26 AM WIRE TRANSFER CLERK Legal Sex Female 12:08 AM CDT Gender Identity Female 05/07/2023 5:26 AM WIRE TRANSFER CLERK Sexual Orientation Straight 05/07/2023 5: 26 AM WIRE TRANSFER CLERK 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 Not on file Not on file Not on file documented as of this encounter Plan of Treatment Not on file documented as of this encounter Results * (ABNORMAL) BASIC METABOLIC PANEL W/ CALCIUM TOTAL (05/14/2023 1:28 PM WIRE TRANSFER CLERK) SODIUM 143 136 - 145 mmol/L 05/14/2023 3:05 PM [facility] POTASSIUM 2.9(L) 3.5 - 5.1 mmol/L 05/14/2023 3:05 PM [facility] CHLORIDE 103 98 - 107 mmol/L 05/14/2023 3:05 PM [facility] CO2, VENOUS 31(H) 22 - 30 mmol/L 05/14/2023 3:05 PM [facility] ANION GAP 11.9 <18.0 mmol/L 05/14/2023 3:05 PM [facility] GLUCOSE 79 70 - 99 mg/dL 05/14/2023 3:05 PM [facility] BUN 11 10 - 20 mg/dL 05/14/2023 3:05 PM [facility] CREATININE, BLOOD 0.61 0.60 - 1.00 mg/dL 05/14/2023 3:05 PM [facility] BUN/CREATININE RATIO 18 12 - 20 ratio 05/14/2023 3:05 PM [facility] CALCIUM 8.6(L) 8.7 - 10.5 mg/dL 05/14/2023 3:05 PM [facility] IS THE PATIENT REQUIRED TO BE FASTING? No 05/14/2023 3:05 PM [facility] GFR, ESTIMATED >60 >=60 05/14/2023 3:05 PM [facility] Comment: Creatinine Clearance is the preferred criteria for selecting drug dose adjustments in renally impaired patients. The GFR is provided as additional pertinent clinical information. GFR is reported in mL/min/1.73 sq m. Calculation based on the Chronic Kidney Disease Epidemiology Collaboration (CKD- EPI) equation refit without adjustment for race. GFR, EST. >60 >=60 024 3:05 PM [facility] GFR, EST. NONAFRICAN >60 >=60 05/14/2023 3:05 PM WIRE TRANSFER CLERK [facility] Blood Venipuncture / Unknown 05/14/2023 1:28 PM WIRE TRANSFER CLERK 05/14/2023 2:37 PM WIRE TRANSFER CLERK us Yamilex Beyer DPM CHEMISTRY ORDERABLES Final R esult [facility] [address] [place] [address] documented in this encounter Visit Diagnoses Diagnosis Pre-op testing- Primary Preoperative examination, unspecified documented in this encounter Care Teams Engine Watchman Relationship Specialty Start Date End Date Mary Diaz MD [address] [place] [address] [place] [address] PCP - General Family Medicine 06/30/22 documented as of this encounter
--- OUTSIDE RECORDS SUMMARY | 2024-05-08 14:03 | XMS_ITS | Patient Health Summary ---
Author Organization [facility] Address [address] [place] [address] Care Team Providers Care Judicial Assistant Name Role Phone Slick Quispe MD Primary Care Provider Note from [facility],non-owned Affiliates and Associated Physician Practices is amultiple site organization consisting of ambulatory clinics and hospital sitesin [place], [place], [place] and [place]. This disclosure is being madepursuant to the Care Everywhere program and may not contain all information available regarding this patient. Last updated 17.[facility] Allergies No known active allergies Medications [...] mg by mouth at bedtime * HYDROcodone-acetaminophen ([place]) 10-325 MG tablet Take 1 tablet by [...] Sex Assigned at Female 05/20/2022 6:45 PM GREETER Gender Identity Female 05/20/2022 6:45 PM GREETER Sexual Orientation Straight 05/20/2022 6: 45 PM GREETER Last Filed Vital Signs Vital Sign Reading Time Taken Comments Blood Pressure 153/66 02/18/2022 9:00 AM GREETER Pulse 66 02/18/2022 9:00 AM GREETER Temperature 37 C (98.6 F) 02/18/2022 9:00 AM GREETER Respiratory Rate 18 01/16/2022 9:22 AM CDT Oxygen Saturation 98% 02/18/2022 9:00 AM GREETER Inhaled Oxygen Concentration - - Weight 72.6 kg (160 lb) 03/11/2024 9:26 AM GREETER Height 162.6 cm (5' 4 ) 03/11/2024 9:26 AM GREETER Body Mass Index 27.46 03/11/2024 9:26 AM GREETER Procedures * MAMMOGRAM(Performed 06/18/2022) * PATHOLOGY/CYTOLOGY REPORT ORDER(Performed 05/22/2022) * IMAGING/RADIOLOGY/XRAY RESULTS ORDER(Performed 03/27/2022) * LAB RESULTS ORDER(Performed 03/20/2022) * CARDIAC RHYTHM STRIP ORDER(Performed 12/31/2021) * LARYNGEAL MASK AIRWAY(Performed 12/27/2021) * [place] REVISE MEDIAN N/CARPAL TUNNEL SURG(Performed 12/27/2021) Performed [...] of2 resultswithin the time period is included. [facility] Glucose 91 70 - 105 mg/dL 12/27/2021 6:30 AM CDT [facility] Sodium 142 136 - 145 mmol/L 12/27/2021 6:30 AM CDT [facility] Potassium 2.7(L) 3.5 - 5.1 mmol/L 12/27/2021 6:30 AM CDT [facility] Chloride 106 98 - 107 mmol/L 12/27/2021 6:30 AM CDT [facility] CO2 30 23 - 31 mmol/L 12/27/2021 6:30 AM CDT [facility] Calcium 9.1 8.4 - 10.4 mg/dL 12/27/2021 6:30 AM CDT [facility] Anion Gap 6(L) 8 - 18 mmol/L 12/27/2021 6:30 AM CDT [facility] BUN 14 9.8 - 20.1 mg/dL 12/27/2021 6:30 AM CDT [facility] Creatinine 0.61 0.57 - 1.11 mg/dL 12/27/2021 6:30 AM T [facility] eGFR by CKD-EPI >90 >=90 mL/min/1.7 3 m2 12/27/2021 6:30 AM CDT [facility] Blood BLOOD SPECIMEN / Unknown Venipuncture / Unknown 12/27/2021 5:59 AM CDT 12/27/2021 6:08 AM CDT Cristofer Alicia MD LAB - CHEMISTRY ORDERABLES [facility] [address] [place], [place] [id number] * PT PTT PANEL (11/15/2021 10:56 AM CDT) Pathologist [facility] INR 1.1 0.9 - 1.2 [facility] INSURANCE [...] Resulting Agency Comment Lab [facility] performed at: [facility] [address] [id number] Cristofer Alicia MD LAB - COAGULATIO N ORDERABLES [facility] INSURANCE BILL [address] [place] [address] * CBC WITH DIFFERENTIAL (11/15/2021 10:56 AM CDT) Pathologist [facility] WBC 4.3 3.4 - 10.8 x10E3/uL [facility] [...] from your office. In accordance with the [facility] Ambiguous Test Code Policy dated September 2002, we have assigned CBC with Differential/Platelet, Test Code #[id number] to this request. If this is not the testing you wished to receive on this specimen, please contact the [facility] Client Inquiry/ Technical Services Department to clarify the test order. We appreciate your business. FASTING Result cannot be obtained for this observation. 11/15/2021 10:5 6 AM CDT 11/15/2021 Narrative Resulting Agency Comment Lab [facility] performed at: [facility] [address] [id number] Cristofer Alicia MD LAB - HEMATOLOGY ORDERABLES [facility] INSURANCE BILL [address] [place] [address] * CARDIAC ECHOCARDIOGRAM COMPLETE ORDER (03/13/2021) 03/13/2021 [...] SHORE M.D. Released Date Time- 09/20/08 1034 Regional Education Manager- FRANKIE Jorgensen ADM- EMERGENCY,PHYSICIANS ATT- EMERGENCY,PHYSICIANS REF- [...] SHORE M.D. Released Date Time- 09/20/08 1034 Regional Education ManagerFroylan DAVID M.D. ADM- EMERGENCY,PHYSICIANS ATT- EMERGENCY,PHYSICIANS REF- [...] above. This examination was transcribed using the netZentry voice recognition system without human orthotics assistant. In an effort to expedite distribution and patient care, this report has not been adjusted for typographical, grammatical, and syntax by a trained medical office worker. Read By- LUCHO MORENO M.D. Released By- LUCHO MORENO M.D. Released Date Time- 09/20/08 0913 Regional Education Manager- MWS M.D. ADM- EMERGENCY,PHYSICIANS ATT- EMERGENCY,PHYSICIANS REF- [...] above. This examination was transcribed using the netZentry voice recognition system without human orthotics assistant. In an effort to expedite distribution and patient care, this report has not been adjusted for typographical, grammatical, and syntax by a trained medical office worker. Read By- LUCHO MORENO M.D. Released By- LUCHO MORENO M.D. Released Date Time- 09/20/08 0913 Regional Education Manager- JENIFER Jorgensen ADM- EMERGENCY,PHYSICIANS ATT- EMERGENCY,PHYSICIANS REF- CON- PCP- SCP- Agustin Deleon DO CT ORDERABLES Care Teams Judicial Assistant Relationship Specialty Start Date End Date Slick Quispe MD [address] [place] [address] PCP - General 08/02/21
--- OUTSIDE RECORDS SUMMARY | 2024-05-08 14:03 | XMS_ITS | Encounter Summary ---
Author Organization [facility] Address [address] [place] [address] Phone Care Team Providers Care Association Executive Name Role Phone Mary Diaz MD Primary Care Provider [phone] Reason for Referral * Radiology Services (Routine) - Closed Specialty Diagnoses / Procedures Referred By Victor Hugo nobles Referred To Contact Radiology Diagnoses Metatarsalgia Hammertoe of left foot Pre-op testing Procedures EKG 12 LEAD Yamilex Beyer DPM Phone: tel: fax: Referral ID Status Reason Start Date Expiration Date Visits Re quested Visits Authorized [id number] Closed 10/30/2022 1 1 Encounter Details Date Type Department Care Team (Latest Contact Info) Description 10/30/2022 Transcribe Orders [facility] Preop/Pacu II [address] [place] [address] Yamilex Beyer DPM [address] [place] [address] Metatarsalgia (Primary Dx); Hammertoe of left foot; Pre-op testing Social History Tobacco Use Types Packs/Day Years Used Date Smoking Tobacco: Former Cigarettes 3 37 Smokeless Tobacco: Never Alcohol Use Standard Drinks/Week Comments No 0 (1 standard drink = 0.6 oz pur e alcohol) Comments No Sex and Gender Information Value Date Recorded Sex Assigned at Female 05/07/2023 5:26 AM MESH WORKER Legal Sex Female 12:08 AM CDT Gender Identity Female 05/07/2023 5:26 AM MESH WORKER Sexual Orientation Straight 05/07/2023 5: 26 AM MESH WORKER 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 on file Not on file [...] QTC CALCULATION 440 ms EXTERNAL EKG P Lawrence 2 degrees EXTERNAL EKG R Lawrence 79 degrees EXTERNAL EKG T Lawrence 75 degrees EXTERNAL EKG 11/11/2022 2:45 PM CDT Impressions EXTERNAL EKG - 11/14/2022 1:12 PM CDT Normal sinus rhythm Normal ECG No previous ECGs available Confirmed by Freddy Beaulieu ([id number]) on 11/14/2022 1:12:12 PM Narrative Procedure Note Freddy Witt MD - 11/14/2022 IMPRESSION: Normal sinus rhythm Normal ECG No previous ECGs available Confirmed by Freddy Beaulieu ([id number]) on 11/14/2022 1:12:12 PM us Yamilex Beyer DPM IMG ECG ORDERABLES Final Res ult EXTERNAL EKG * (ABNORMAL) BASIC METABOLIC PANEL W/ CALCIUM TOTAL (11/11/2022 2:39 PM CDT) SODIUM 145 136 - 145 mmol/L 11/11/2022 5:08 PM CDT [facility] POTASSIUM 2.9(L) 3.5 - 5.1 mmol/L 11/11/2022 5:08 PM CDT [facility] CHLORIDE 103 98 - 107 mmol/L 11/11/2022 5:08 PM CDT [facility] CO2, VENOUS 30 22 - 30 mmol/L 11/11/2022 5:08 PM CDT [facility] ANION GAP 14.9 <18.0 mmol/L 11/11/2022 5:08 PM CDT [facility] GLUCOSE 77 70 - 99 mg/dL 11/11/2022 5:08 PM CDT [facility] BUN 9(L) 10 - 20 mg/dL 11/11/2022 5:08 PM CDT [facility] CREATININE, BLOOD 0.68 0.60 - 1.00 mg/dL 11/11/2022 5:08 PM CDT [facility] BUN/CREATININE RATIO 13 12 - 20 ratio 11/11/2022 5:08 PM CDT [facility] CALCIUM 9.1 8.7 - 10.5 mg/dL 11/11/2022 5:08 PM CDT [facility] IS THE PATIENT REQUIRED TO BE FASTING? No 11/11/2022 5:08 PM CDT [facility] GFR, ESTIMATED >60 >=60 11/11/2022 5:08 PM T [facility] Comment: Creatinine Clearance is the preferred criteria for selecting drug dose adjustments in renally impaired patients. The GFR is provided as additional pertinent clinical information. GFR is reported in mL/min/1.73 sq m. Calculation based on the Chronic Kidney Disease Epidemiology Collaboration (CKD- EPI) equation refit without adjustment for race. GFR, EST. >60 >=60 023 5:08 PM CDT [facility] GFR, EST. NONAFRICAN >60 >=60 11/11/2022 5:08 PM CDT [facility] Blood Venipuncture / Unknown 11/11/2022 2:39 PM CDT 11/11/2022 4:38 PM CDT us Yamilex Beyer DPM CHEMISTRY ORDERABLES Final R esult [facility] [address] [place] [address] documented in this encounter Visit Diagnoses Diagnosis Metatarsalgia- Primary Enthesopathy of ankle and tarsus, unspecified Hammertoe of left foot Pre-op testing Preoperative examination, unspecified Metatarsalgia Enthesopathy of ankle and tarsus, unspecified Hammertoe of left foot Pre-op testing Preoperative examination, unspecified documented in this encounter Care Teams Association Executive Relationship Specialty Start Date End Date Mary Diaz MD [address] [place] [address] DR VRAMA [address] [place] [address] PCP - General Family Medicine 06/30/22 documented as of this encounter
--- NOTE | 2024-05-08 14:57 | ED_ITS ---
HPI - Extremity Problem General Chief complaint: Extremity Problem,Nontraumatic Stated complaint: foot infection Time Seen by Provider: 05/08/24 13:52 History of Present Illness HPI Narrative: Patient is a 63-year-old female who presents ER with pain on the plantar aspect of her left foot at the 2nd MTP. History of surgery to that toe joint. Went for a prolonged walk yesterday and after returning she started having increased pain and now she cannot bear weight on it. There is redness. No fevers or chills or sweats. She is concerned she could have an infection. Denies any significant trauma outside of walking. Related Data Home Medications ?Medication ?Instructions ?Recorded ?Confirmed ?Last Taken ?Type calcium citrate 200 mg PO DAILY 09/26/20 11/03/23 Unknown History cyclobenzaprine 10 mg tablet 10 mg PO .qd 09/07/21 11/03/23 Unknown History spironolactone 25 mg tablet 25 mg PO DAILY 07/08/22 11/03/23 Unknown History levothyroxine 100 mcg capsule 112 mcg PO DAILY 11/04/22 11/03/23 Unknown History ropinirole 3 mg tablet 3 mg PO .nightly 11/04/22 11/03/23 Unknown History rosuvastatin 20 mg tablet 20 mg PO DAILY 11/04/22 11/03/23 Unknown History tiotropium bromide 18 mcg capsule 1 cap inhalation DAILY 11/03/23 11/03/23 Unknown History with inhalation device (Spiriva with HandiHaler) Allergies Allergy/AdvReac Type Severity Reaction Status Date / Time poison sumac extract Allergy Severe Rash Verified 05/08/24 13:12 adhesive tape AdvReac Mild Rash Verified 05/08/24 13:12 bacitracin (From Neosporin AdvReac Mild Rash Verified 05/08/24 13:12 ([id number])) neomycin (From Neosporin AdvReac Mild Rash Verified 05/08/24 13:12 ([id number])) polymyxin B (From Neosporin AdvReac Mild Rash Verified 05/08/24 13:12 ([id number])) Review of Systems Constitutional: Constitutional: Reports no additional constitutional c omplaints Musculoskeletal: Musculoskeletal: Denies back pain, Reports arthralgias and Denies joint swelling Integumentary/Breasts: Skin/Breast: Reports erythema, Denies rash and Denies skin ulcer [facility] Past Medical History Medical History Arthritis Arthritis of shoulder region, right Asthma Bilateral lower extremity edema Chronic headaches DDD (degenerative disc disease) Depression Ectopic kidney Erosion of bladder suspension mesh (02/12/22) excision of mesh / 05/29/2022 tension free vaginal tape Female stress incontinence Fibromyalgia Gallbladder disorder Hair loss Tea's thyroiditis Hearing loss Heart murmur History of tobacco abuse Hot thyroid nodule Hyperlipidemia Hypertension Hypokalemia Nerve damage cervical spine Obstructive sleep apnea Ocular migraine Osteoarthritis of knees, bilateral Osteoporosis Psoriasis RLS (restless legs syndrome) Screening mammogram, encounter for Spondylosis of lumbar spine Subacromial impingement of right shoulder Venous reflux Vitamin D deficiency Wears glasses Surgical History Surgical History H/O colonoscopy with polypectomy 03/24/02 H/O thyroidectomy (05/29/22) History of cholecystectomy History of dilation and curettage (12/07/09) hscope d&c/polypectomy x3 others History of ear, nose, and throat (ENT) surgery (~2013) sinus cautery History of endometrial ablation (01/04/10) hscope novasure ablation History of foot surgery Hammer Toe 2002 History of fusion of cervical spine History of hysterectomy, supracervical (07/25/10) History of knee surgery PCL reconstruction 01/12/15 Dr. Sommer History of right hip replacement (01/03/21) History of sleeve gastrectomy (06/23/20) History of tubal ligation Family History Family History Father Acute myocardial infarction Myocardial infarction Hypertension Grandparent Diabetes mellitus Carcinoma of colon Mother Lung cancer COPD (chronic obstructive pulmonary disease) Sibling Lung cancer Other Family history of cardiovascular disease Social History Social History Smoking packs per day: 3 Smoking cigarettes per day: 60.0 Years smoked: 37 Smoking pack-years: 111.00 Smoking status: Former smoker Smoking end date: 06/22/08 Alcohol intake: never Substance use: current Substance use type: marijuana Other substance usage details: medical marijuana Lack of Transportation: No Lack of Food: Never True Current Housing: I Have Housing Concerned About Future Housing: No Difficulty Paying Gas/Electric Bills: No Difficulty Paying for Meds: No Currently Unemployed: No Education: Trade/Vocational Certificate Difficulty w/ Childcare or Family Care: No Living arrangements: other Additional living arrangements comments: Occupation/Education: unemployed Additional occupation/education comments: disabled Gender identity (if verbalized by the patient): Female Sexual Orientation (if Verbalized by the Patient): Straight or Heterosexual Exam Narrative: GENERAL: Well-appearing, well-nourished, and in no acute distress. HEAD: Normocephalic, atraumatic. EXTREMITIES: Left 2nd digit with redness at the MTP a dorsal and plantar aspect but there is increased tenderness on the plantar aspect. No drainage. Small break in skin plantar aspect of the 2nd MTP and small abrasion over the dorsal aspect of the middle phalanx. No purulent drainage. Limited range of motion of the affected digit due to previous surgery. No significant warmth. SKIN: Warm, dry, no rash. NEURO: Alert and oriented x3. PSYCH: Normal mood and affect. Course Course Emergency Course: Cellulitis verses joint inflammation from overuse. Imaging shows possible periprosthetic fracture patient has mild discomfort in that region but has the majority of her discomfort on the plantar aspect of the foot at the 2nd MTP. Discharged with postop shoe, anti-inflammatories as tolerated, and antibiotics. She showed me photos of her foot going back several months. She appears always have some sort of discoloration is been having fluctuation of her swelling on the plantar aspect of her foot. Vital Signs Vital signs: Vital Signs Temperature 97.6 F 05/08/24 12:58 Pulse Rate 90 05/08/24 12:58 Respiratory Rate 16 05/08/24 12:58 Blood Pressure 120/47 L 05/08/24 12:58 Pulse Oximetry 100 05/08/24 12:58 Temperature 97.6 F 05/08/24 12:58 Pulse Rate 90 05/08/24 12:58 Respiratory Rate 16 05/08/24 12:58 Blood Pressure 120/47 L 05/08/24 12:58 Pulse Oximetry 100 05/08/24 12:58 Discharge Plan Discharge Clinical Impression: Cellulitis, Pain of toe Patient Disposition: Home, Self-Care Condition: Stable Instructions: Antibiotic Form, Cellulitis (ED), Metatarsalgia (DC) Additional Instructions: Return the ER if you have worsening pain, you suffered injury, you develop chest pain with shortness of breath, or you have additional concerns. Patient Language: Swedish Prescriptions: New cefuroxime axetil 500 mg tablet 500 mg PO BID Qty: 14 0RF No Action spironolactone 25 mg tablet 25 mg PO DAILY levothyroxine 100 mcg capsule 112 mcg PO DAILY cyclobenzaprine 10 mg tablet 10 mg PO .qd duloxetine 60 mg capsule,delayed release(DR/EC) 60 mg PO DAILY Qty: 90 1RF tiotropium bromide [Spiriva with HandiHaler] 18 mcg capsule, w/inhalation device 1 cap inhalation DAILY Rx Instructions: puncture 1 cap using device; one dose = 2 inhalations calcium citrate 200 mg (950 mg) tablet 200 mg PO DAILY rosuvastatin 20 mg tablet 20 mg PO DAILY ropinirole 3 mg tablet 3 mg PO .nightly hydrocodone-acetaminophen 10-325 mg tablet 1 tablet PO Q4-6H PRN (Reason: pain (scale score 7-10)) Qty: 180 0RF Rx Instructions: To last 30 days, due 02/12/2021 potassium chloride 20 mEq tablet,ER particles/crystals 20 meq PO .COMPLEX Qty: 90 0RF Rx Instructions: 20 mEq orally 1 tablet p.o. b.i.d. for 3 days and then 1 tablet p.o. q.day; albuterol sulfate [Ventolin HFA] 90 mcg/actuation HFA aerosol inhaler See Rx Instructions .ROUTE .COMPLEX Qty: 18 0RF Dose Instruction: INHALE 1 TO 2 PUFFS BY MOUTH EVERY 4 TO 6 HOURS NEEDED FOR SHORTNESS OF BREATH OR WHEEZING Rx Instructions: INHALE 1 TO 2 PUFFS BY MOUTH EVERY 4 TO 6 HOURS NEEDED FOR SHORTNESS OF BREATH OR WHEEZING estradiol 0.01 % (0.1 mg/gram) cream 1 g vaginal 3XW Qty: 42.5 2RF gabapentin 100 mg capsule See Rx Instructions .ROUTE .COMPLEX Qty: 270 3RF Dose Instruction: TAKE 1 CAPSULE BY MOUTH 3 TIMES DAILY Rx Instructions: TAKE 1 CAPSULE BY MOUTH 3 TIMES DAILY ropinirole 1 mg tablet See Rx Instructions .ROUTE .COMPLEX Qty: 100 1RF Dose Instruction: TAKE 1 TABLET BY MOUTH DAILY Rx Instructions: TAKE 1 TABLET BY MOUTH DAILY ropinirole 3 mg tablet See Rx Instructions .ROUTE .COMPLEX Qty: 100 1RF Dose Instruction: TAKE 1 TABLET BY MOUTH 1 TO 2 HOURS BEFORE BEDTIME Rx Instructions: TAKE 1 TABLET BY MOUTH 1 TO 2 HOURS BEFORE BEDTIME Follow-up/Referrals: Dee Dee,MD Eddie [Primary Care Provider] - 1 Week
[2024-05-08 17:18] VITALS: BP 130/73; PULSE 68; RESP 18; O2SAT 99
== END 2024-05-08 17:19 | disposition home or self-care (01) ==
PROVIDERS: Emergency Provider Emergency Medicine; PCP Hospitalist
DX: L03.032 Cellulitis of left toe (principal); I10 Essential (primary) hypertension; J45.909 Unspecified asthma, uncomplicated; E89.0 Postprocedural hypothyroidism; E06.3 Autoimmune thyroiditis; E78.5 Hyperlipidemia, unspecified; E55.9 Vitamin D deficiency, unspecified; G47.33 Obstructive sleep apnea (adult) (pediatric); G25.81 Restless legs syndrome; M79.7 Fibromyalgia; M19.011 Primary osteoarthritis, right shoulder; M17.0 Bilateral primary osteoarthritis of knee; Z98.84 Bariatric surgery status; Z96.641 Presence of right artificial hip joint; Z87.891 Personal history of nicotine dependence; Z90.49 Acquired absence of other specified parts of digestive tract; Z98.1 Arthrodesis status; Z90.711 Acquired absence of uterus with remaining cervical stump; Z79.899 Other long term (current) drug therapy
CPT/HCPCS: 73630; 99283

== ENCOUNTER 2024-07-31 19:30 | Inpatient (IN) | payer MEDICARE, MEDICAID, SELFPAY ==
[2024-07-31] VITALS (17 sets, daily range): BP systolic 126–147; BP diastolic 57–81; PULSE 59–87; RESP 10–24; TEMP 36.9; O2SAT 90–100
--- NOTE | ~2024-07-31 | US_ITS ---
US abdomen limited INDICATION: Abnormal liver function tests. PROCEDURE: Realtime right upper abdominal ultrasound. COMPARISON: No prior studies for comparison. FINDINGS: The pancreas is normal without focal mass or pancreatic ductal dilation. Liver echotexture is normal without focal mass or intrahepatic biliary dilatation. There is normal directional flow i n the portal vein. Gallbladder is surgically absent. Common bile duct measures 13 mm. No sonographic Manzo's sign. IMPRESSION: 1: Status post cholecystectomy. Dilated common bile duct measuring 13 mm. No obstructing stone or cys t mass identified. Consider correlation with MRCP examination. Reviewed, dictated and finalized at location A. IMPRESSION: 1: Status post cholecystectomy. Dilated common bile duct measuring 13 mm. No ob structing stone or cyst mass identified. Consider correlation with MRCP examina tion.
--- NOTE | ~2024-07-31 | XR_ITS ---
XR chest 1V portable Ordering provider: Praveen Walker MD History: 63 years Female with . Overdsoe . Comparison: None. FINDINGS: MEDIASTINUM: The cardiac silhouette is slightly enlarged. LUNGS: No infiltrates, effusions or pneumothorax. OTHER: No free air under the diaphragm. IMPRESSION: No acute cardiopulmonary pathology. Reviewed, dictated and finalized at location A.
--- NOTE | 2024-07-31 19:30 | ECG_ITS ---
Test Date: 2024-07-31 19:52:53 Measurements Intervals [place] Rate: 57 P: 51 MA: 157 QRS: 52 QRSD: 107 T: 47 QT: 359 QTc: 352 Interpretive Statements SINUS BRADYCARDIA NONSPECIFIC T-WAVE ABNORMALITY No previous ECG available for comparison Electronically Signed On 08-02-2024 15:19:53 CDT by Jasen Bower M.D.
[2024-07-31] MEDS: SODIUM CHLORIDE 0.9% IV 2,000 ML 999 ML IV CONT (19:50)
--- OUTSIDE RECORDS SUMMARY | 2024-07-31 20:10 | XMS_ITS | Encounter Summary ---
Author Organization [facility] Address 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
--- OUTSIDE RECORDS SUMMARY | 2024-07-31 20:10 | XMS_ITS | Encounter Summary ---
Author Organization [facility] Address 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
--- OUTSIDE RECORDS SUMMARY | 2024-07-31 20:10 | XMS_ITS | Encounter Summary ---
Author Organization [facility] Address 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
--- OUTSIDE RECORDS SUMMARY | 2024-07-31 20:10 | XMS_ITS | Encounter Summary ---
Author Organization [facility] Address [address] [place] [address] Care Team Providers Care Pitting Machine Operator Name Role Phone Malathi Perez MD Primary Care Provider Encounter Details Date Type Department Care Team (Late st Contact Info) Description 11/21/2003 Outpatient Historical [facility] Primary Care - [address] [place] [address] Cody Rubio MD [address] [facility] [address] [place] [address] Social History Tobacco Use Types Packs/Day Years Used Date Smoking Tobacco: Never Assessed Comments Unknown Sex and Gender Information Value Date Recorded Sex Assigned at Not on file Legal Sex Female 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
--- OUTSIDE RECORDS SUMMARY | 2024-07-31 20:10 | XMS_ITS | Clinical Summary ---
Author Organization [facility] Kathrine Acuñabrian Address [address] [place] [address] Care Team Providers Care Wagon Driver Name Role Phone Malathi Perez MD Primary Care Provider [phone] Allergies No known active allergies Medications MELATONIN [...] 20 Active fluticasone propionate (FLONASE) 50 mcg/spray [place], Suspension nasal inhaler Administer 1 [place] in each nostril. 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
--- OUTSIDE RECORDS SUMMARY | 2024-07-31 20:10 | XMS_ITS | Continuity of Care Document ---
Author Organization [facility] Address [address] [address] [place] [address] Phone Care Team Providers Care Railroad Brake Operator Name Role Phone Zay Peraza DPM Unavailable Unavailab le Allergies, Adverse Reactions, Alerts [...] mg capsule - Active Procedures Procedure Date POSTOP FOLLOW-UP VISIT POSTOP FOLLOW-UP VISIT POSTOP FOLLOW-UP VISIT GRFG AUTOL SOFT TISS DIR EXC POSTOP FOLLOW-UP VISIT OFFICE/OUTPATIENT VISIT EST OFFICE/OUTPATIENT VISIT EST OFFICE/OUTPATIENT VISIT NEW Advance Directives Directive Yes / No Effective Date File Name Resuscitation Not Answered N/A N/A Life Support Not Answered N/A N/A Intubation Not Answered N/A N/A Antibiotics Not Answered N/A N/A IV Fluid Support Not Answered N/A N/A Tube Feed Not Answered N/A N/A Other Directive N/A N/A WARNING:The information contained in this section is historical and is provided for information only and does not constitute a legal document or any assurance that the information is still accurate. Please verify the information with the connelly of the legal document before using it for clinical purposes. Encounters Encounter Description Practice Location Reason(s) For Visit Diagnoses Date Provider Providers Copied on Encounter [facility], [address] [facility] [address] [place] [address], [facility], tel:[phone] [facility] S/P foot surgery [address] [place], [place], [place], [id number] , . tel:[phone] Referring Provider: Eddie Gutiérrez, [address] [place] [address], [address] . tel:[phone] [facility], [address] [facility] [address] [place] [address], [address], tel:[phone] [facility] S/P foot surgery [address] [place], [place], [place], [id number] , . [phone] Referring Provider: Eddie Gutiérrez, [address] [place] [address], [address] . tel:[phone] [facility], [address] [place], [address], tel:[phone] [facility] S/P foot surgeryAtrophic disorder of skin, unspecified May-2 8 [address] [place] [place], [place], [place], [id number] , [place]. tel: [phone] Referring Provider: Eddie Gutiérrez, [address] [place] [facility], [place], [address] . tel:[phone] [facility], [address], [place], [address], tel:[phone] [facility] S/P foot surgery May-1 5 [place] [place] [place], [place], [place], [id number] , [place]. tel:[phone] Referring Provider: Eddie Gutiérrez, [address] [place] [address], [place], [address] . tel:[phone] [facility], [address] [facility] [address], [place], [place], [facility], [place] tel:[phone] [facility] Fat pad atrophy of footMorton's neuroma of left footExostosis of left foot May-0 5 [place], [place], [place], [id number] , [place]. tel:[phone] OFFICE/OUTPA TIENT VISIT EST [facility], [address] [facility] [address], [place], [address], [place] tel:[phone] [facility] Injury of plantar plate of left foot, initial encounterFat pad atrophy of footMetatarsalgi a, left footBone spur of left footMorton's neuroma of left foot Apr- 5 [place] [facility] [address], [place], [place], [id number] , [place]. tel:[phone] Referring Provider: Eddie Gutiérrez, [address] [place] [facility], [place], [address] . tel:[phone] [facility], [address], [place], [address], [place] tel:[phone] [facility] Fat pad atrophy of footMetatarsalgi a, left foot [address] [place], [place], [place], [id number] , [place]. tel:[phone] OFFICE/OUTPA TIENT VISIT EST [facility], [address], [place], [address], [place] tel:[phone] [facility] [place] Injury of plantar plate of left foot, initial encounterFat pad atrophy of footMetatarsalgi a, left foot Feb- [address] [place], [place], [place], [id number] , [place]. [phone] Referring Provider: Eddie Gutiérrez, [address] [place] [address], [address] . tel:[phone] OFFICE/OUTPA TIENT VISIT NEW [facility], [address], [place], [address], [place] tel:[phone] [facility] [place] Metatarsalgia, left footFat pad atrophy of footInjury of plantar plate of left foot, initial encounter [address] [place], [place], [place], [id number] , [place]. [phone] Referring Provider: Eddie Gutiérrez, [address] [place] [address], [address] . tel:[phone] Family History Family Member Type Diagnosis Age At Onset No Information Payers Payer name Insurance type Covered libertarian ID Zak plascenciajune(s) [facility] Medicare Advantage HMO/POS OT [id number] Social History Type Description Quantity Date Captured Comments Alcohol Use Details Unknown Caffeine Use Details Unknown Tobacco Use Status Ex-cigarette smoker 025 Smoking Status Former smoker Sex Female Chief Complaint And Reason For Visit No Information Reason For Referral Reason For Referral No Information Plan Of Treatment Date Type Action Status Goal Tobacco cessation counseling completed Goal Tobacco cessation counseling completed Referral Ordered: RADEX FOOT COMPL MINIMUM 3 VIEWS LT foot ordered Appointment Flor Gallego Scheduled History Of Present Illness Encounter Date Complaint History Of Prese nt Illness No Information Functional Status Date Functional Assessmen t No Information Instructions Date Instruction Additional Infor niecy Fall prevention home exercise program handout provided Assessments Type Assessment Date assessment S/P foot surgery Patient Care Teams Name Effective Dates (start - stop) Status Members No Information
--- OUTSIDE RECORDS SUMMARY | 2024-07-31 20:10 | XMS_ITS | Encounter Summary ---
Author Organization [facility] Address [address] [place] [address] Care Team Providers Care Hearing Examiner Name Role Phone Kareem Minerva Phillips MD Unavailable Alfie Vegas MD Unavailable [phone] Toni Cintron MD Unavailable [phone] Brendan Thomas DPM Unavailable [phone] Vivi Wood CNM Unavailable [phone] Tahmina Marvin MD Unavailable Cristofer Alicia MD Unavailable [phone] Prashanth Lee MD Unavailable Roberto Carlos Fregoso MD Unavailable García Siddiqui DO Unavailable [phone] Ana Delarosa MD Unavailable Orion Sommer MD Unavailable [phone] Alban Hernandez MD Unavailable Rehana Mckeon MD Unavailable Eddie Funez MD Primary Care Provider [phone] Encounter Details Date Type Department Care Team (Late st Contact Info) Description 07/15/2024 Results [facility] [address] [id number] Eddie Funez MD [address] [place], [place] [address] [place] [address] Social History Tobacco Use Types Packs/Day Years Used Date Smoking Tobacco: Former Cigarettes 2 38.3 0 03/25/1970 - 07/09/2008 Passive Smoke Exposure: Past Smokeless Tobacco: Never Alcohol Use Standard Drinks/Week Comments No 0 (1 standard drink = 0.6 oz pur e alcohol) AUDIT-C Answer Date Recorded Q1: How often do you have a drink containing alcohol? Never 07/01/2024 Q2: How many drinks containi ng alcohol do you have on a typical day when you are drinking? Patient does not drink Q3: How often do you have si x or more drinks on one occasion? Never 07/01/2024 PHQ-2 Answer Date Recorded PHQ-2 Total Score (If total score is 3 or more points, staff should administer the PHQ-9) 4 07/01/2024 Personal Safety Answer Date Recorded Have you ever been in or are you currently in a harmful physical or emotional relationship or is someone making you feel afraid or unsafe? Denies 10/07/2022 Comments No Sex and Gender Information Value Date Recorded Sex Assigned at Not on file Legal Sex Female 7:24 PM SUPERVISOR TESTING Gender Identity Female 02/08/2020 5:48 PM SUPERVISOR TESTING Sexual Orientation Straight 02/08/2020 5: 48 PM SUPERVISOR TESTING documented as of this encounter Miscellaneous Notes * Telephone Encounter - Nieves Messina MA - 07/15/2024 2:14 PM CDT Please advise on the estradiol and if you recommend that she take a supplement? documented in this encounter Plan of Treatment Not on file documented as of this encounter Visit Diagnoses Not on filedocumented in this encounter Care Teams Hearing Examiner Relationship Specialty Start Date End Date Eddie Funez MD [facility] [place] [address] PCP - General Family Medicine 07/01/24 Minerva Serna MD Consulting Physician Gastroenterology 01/28/21 Alfie Vegas MD Consulting Physician Hematology 01/28/21 Toni Cintron MD [address] [place] [address] Consulting Physician Obstetrics and Gynecology 01/28/21 Brendan Thomas DPM [address], [place] [id number] Consulting Physician Foot and Ankle Surg 01/28/21 Vivi Wood CNM [address] [place] [address] Nurse Practitioner Psychiatry 04/08/22 Tahmina Marvin MD [address] [place] [address] Referring Physician Pain Management 04/08/22 Cristofer Alicia MD [address] [facility] [address] [place] [address] Referring Physician Neurosurgery 04/08/22 [place] [address] [facility] [address] [place] [address] Consulting Physician Endocrinology Diabetes & Metabolism 04/08/22 Roberto Carlos Fregoso MD [address] [facility] [place] [address] Referring Physician Otolaryngology 04/08/22 García Siddiqui DO [address] [facility] [place] [address] Referring Physician Surgery 04/08/22 Ana Delarosa MD [address] [place] [address] Consulting Physician Sleep Medicine 04/08/22 [place] [address] [place] [address] Surgeon Orthopedic Surgery 04/08/22 [place] [address] [place] [address] Referring Physician Orthopedic Surgery 04/08/22 [place] [address] [place] [address] Consulting Physician Cardiology 04/08/22 documented as of this encounter
--- OUTSIDE RECORDS SUMMARY | 2024-07-31 20:10 | XMS_ITS | Encounter Summary ---
Author Organization [facility] Address 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
--- OUTSIDE RECORDS SUMMARY | 2024-07-31 20:10 | XMS_ITS | Clinical Summary ---
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 on file Not on file [...] Comments Hepatitis C Virus (HCV) Screening 1960 Mammogram 1960 Cologuard 09/17/2011 Immunochemical Fecal Occult Blood 09/17/2011 SARS-COV-2 Immunization ( season) 2023 05/13/2023, 05/01/2022, 03/30/2021, Additional history exists Influenza Immunization (Season Ended) 2024 05/13/2023, 05/01/2022, 01/24/2021, Additional history exists Colonoscopy 09/18/2026 09/18/2016 Colorectal [...] on patient's age to complete this topic Human Papillomavirus (HPV) Immunization Aged Out No longer eligible based on patient's age to complete this topic Meningococcal Immunization (ACWY) Aged Out No longer eligible based on patient's age to complete this topic Rotavirus Immunization Aged Out No lo nger eligible based on patient's age to complete this topic Medical Devices Implanted Type Area Foam Cutting Supervisor Device Identifier Shelf Expiration Date Model / Serial / Lot Tissue Placental Matrix Flowable Viaflow 2.0cc - [id number] Implanted:Qty: 1 on 10/09/2023 by Yamilex Beyer DPM at [facility] IMPLANT Left: Ankle [employer] 04/17/2028 AMAF-0020 / AMAF-0020 / [id number] Headles Screw Size 20 Implanted:Qty: 2 on 11/19/2022 by Yamilex Beyer DPM at [facility] Left: Foot AR-8725-20 H / AR-8725-20 H / AR-8725-20 H Explanted Type Area Foam Cutting Supervisor Device Identifier Shelf Expiration Date Model / Serial / Lot 2.5 Headless Screw Size 12 Implanted:Qty: 2 on 11/19/2022 by Yamilex Beyer DPM at [facility] Explanted:Qty: 2 on 05/22/2023 by Yamilex Beyer DPM at [facility] Left: Foot ARTHREX AR-8725-12H / AR-8725-12H / AR-8725-12H Insurance MEDICAID [place] MEDICARE C [employer] Care Teams Gas Transfer Operator Relationship Specialty Start Date End Date Mary Diaz MD [address] [facility] [place] [address] PCP - General Family Medicine 06/30/22
--- OUTSIDE RECORDS SUMMARY | 2024-07-31 20:10 | XMS_ITS | Encounter Summary ---
Author Organization [facility] Address [address] [place] [address] Care Team Providers Care Wet Chemistry Analyst Name Role Phone Malathi Perez MD Primary Care Provider Encounter Details Date Type Department Care Team (Late st Contact Info) Description 11/25/2002 Outpatient Historical [facility] Primary Care - [address] [place] [address] Cody Rubio MD [address] [facility] [address] [place] [address] Social History Tobacco Use Types Packs/Day Years Used Date Smoking Tobacco: Never Assessed Comments Unknown Sex and Gender Information Value Date Recorded Sex Assigned at Not on file Legal Sex Female 5: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
--- OUTSIDE RECORDS SUMMARY | 2024-07-31 20:10 | XMS_ITS | Clinical Summary ---
Author Organization [facility] Address [address] [place] [address] Care Team Providers Care Blue Line Hanger Name Role Phone Kareem Minerva Phillips MD Unavailable Alfie Vegas MD Unavailable [phone] Toni Cintron MD Unavailable Brendan Thomas DPM Unavailable [phone] Vivi Wood CNM Unavailable Tahmina Marvin MD Unavailable Cristofer Alicia MD Unavailable Prashanth Lee MD Unavailable Roberto Carlos Fregoso MD Unavailable García Siddiqui DO Unavailable Ana Delarosa MD Unavailable Orion Sommer MD Unavailable [phone] Alban Hernandez MD Unavailable [phone] Rehana Mckeon MD Unavailable Eddie Funez MD Primary Care Provider [phone] Allergies Active Allergy Reactions Criticality Noted Date Comments Adhesive Other (See comments) Low 05/16/2022 Tears skin Bacitracin Rash Medium 02/04/2024 Neomycin Sulfate Rash Medium 02/04/2024 Xoplscfq-Bepkzwecyo-Bdkruwds n Itching,Rash Medium 06/07/2015 Polymyxin B Rash Medium 02/04/2024 Venom-Honey Bee Swelling Medium 10/31/2022 Medications albuterol 2.5 mg /3 mL (0.083 %) nebulizer solution Take 3 mL (2.5 mg total) by nebulization every 6 (six) hours as needed for wheezing Active gabapentin (NEURONTIN) 100 mg capsuleIndications :Neuropathic Pain Take 1 capsule (100 mg total) by mouth 2 (two) times a day 02/21/20 20 Active multivit-min/iron/ folic acid/K (BARIATRIC MULTIVITAMINS ORAL)Indications:s upplement Take 1 tablet by mouth every morning Active cyclobenzaprine (FLEXERIL) 10 mg tabletIndications: Fibromyalgia,Muscl e Spasm Take 1 tablet (10 mg total) by mouth nightly 10/31/19 22 Active HYDROcodone-acetam inophen (NORCO) 10-325 mg per tablet Take 1 tablet by mouth every 6 (six) hours as needed for pain 03/27/19 23 Active rOPINIRole (REQUIP) 3 mg tabletIndications: Restless Legs Syndrome Take 1 tablet (3 mg total) by mouth nightly Active albuterol HFA (PROVENTIL HFA,VENTOLIN HFA,PROAIR HFA) 90 mcg/actuation inhaler Inhale 2 puffs every 6 (six) hours as needed for wheezing Active calcium citrate (CALCITRATE) 950 mg (200 mg of elemental calcium) tabletIndications: hypocalcemia Take 1 tablet (950 mg total) by mouth 3 (three) times a day for 7 days, THEN 1 tablet (950 mg total) 2 (two) times a day for 7 days, THEN 1 tablet (950 mg total) daily for 7 days. 42 tablet 05/21/19 23 029 Active estradioL (ESTRACE) 0.01 % (0.1 mg/gram) vaginal creamIndications:A trophy of Vulva Insert 1 g into the vagina 3 (three) times a week Tues and Thurs 12 g 05/30/19 23 029 Active rOPINIRole (REQUIP) 1 mg tablet TAKE 4 TABLETS BY MOUTH 1 TO 2 HOURS BEFORE BEDTIME FOR RESTLESS LEG SYMPTOMS 07/02/19 23 Active spironolactone (ALDACTONE) 25 mg tablet Take 1 tablet (25 mg total) by mouth daily 07/17/19 23 Active EPINEPHrine 0.3 mg/0.3 mL auto-injection syringe INJECT 1 PEN IN THE MUSCLE ONE TIME DIRECTED 07/25/19 24 Active mupirocin (BACTROBAN) 2 % ointmentIndication s:Skin infection Apply topically 2 (two) times a day Prn for skin infection at wound 22 g 1 10/30/19 24 Active ipratropium (ATROVENT) 42 mcg (0.06 %) nasal sprayIndications:S easonal allergic rhinitis due to pollen Administer 2 sprays into each nostril 3 (three) times a day 180 mL 11 12/26/19 24 Active cetirizine (ZyrTEC) 10 mg tabletIndications: Seasonal allergic rhinitis due to pollen Take 1 tablet (10 mg total) by mouth daily 30 tablet 11 12/26/19 24 025 Active levothyroxine (SYNTHROID) 112 mcg tabletIndications: Postoperative hypothyroidism TAKE 1 TABLET BY MOUTH DAILY 100 tablet 3 01/05/[address] (CYMBALTA) 60 mg capsuleIndications :Anxiety with Depression,Fibromy algia Take 1 capsule (60 mg total) by mouth nightly 90 capsule 1 01/12/20 24 025 Active potassium chloride ER 20 mEq CR tablet TAKE 2 TABLETS BY MOUTH DAILY FOR 3 DAYS, THEN TAKE 1 TABLET BY MOUTH EVERY MORNING WITH BREAKFAST 93 tablet 1 01/26/20 24 Active rosuvastatin (CRESTOR) 20 mg tabletIndications: Peripheral vascular disease TAKE 1 TABLET BY MOUTH DAILY 30 tablet 11 02/23/20 24 Active losartan (COZAAR) 50 mg tabletIndications: Primary hypertension TAKE 1 TABLET(50 MG) BY MOUTH EVERY NIGHT 90 tablet 1 04/30/19 25 Active albuterol-budesoni de 90-80 mcg/actuation HFA aerosol inhaler Inhale 1-2 puffs every 6 (six) hours as needed (dyspnea or coughing) 32.1 g 3 07/02/19 25 026 Active Active Problems Problem Noted Date Diagnosed Date Grade III hemorrhoids 07/21/2024 Assessment & Plan (07/21/2024 10:32 AM CDT): Acute onset anal pain. Grade 3. Small thrombosed, however this is resolving. We discussed topical management. At this time no emergent surgery is offered. Should she wish to proceed with surgery in the future, she will contact our office. Discussed over the counter products to reduce symptoms. Seasonal allergic rhinitis due to pollen 024 Assessment & Plan (12/26/2023 9:11 AM CDT): Nasal saline spray (Simply saline, [employer], [place], [place]) 2 second sprays or 2 squeezes into [...] evaluation Assessment & Plan (04/30/2023 5:32 PM TIRE SERVICE SUPERVISOR): Noted on more recent labs. Patient had some blood work through her specialists. I have encouraged her to get me a copy of these to review Transaminitis 04/30/2023 Assessment & Plan (04/30/2023 5:35 PM TIRE SERVICE SUPERVISOR): Present since least 2021. The elevated [...] 10/28/2022 Assessment & Plan (04/30/2023 5:32 PM TIRE SERVICE SUPERVISOR): Chronic calcification noted on prior imaging. [...] symptoms Assessment & Plan (04/30/2023 5:32 PM TIRE SERVICE SUPERVISOR): Chronic but symptomatically improving. Working with [...] shoe. Defer care to specialists Intestinal intussusception 08/16/2022 Overview (08/16/2022): Multiple areas of short segment small bowel intussusception incidentally noted on CT angiogram for circulation issues Venous insufficiency 07/01/2022 Postoperative hypothyroidism 06/04/2022 Assessment & Plan (07/26/2024 2:13 PM CDT): Chronic problem. Clinically & biochemically euthyroid at this time. Currently taking levothyroxine 112mcg daily. Aware to take 1st thing in morning, 30-60 minutes before food/drink/other medications. Will repeat TFTs at [facility]. Verified that she uses mychart. Aware to check results/results letter in [employer]. Will contact by phone if needed. Assessment & Plan (07/13/2024 9:15 PM CDT): Stable, generally well controlled, follows with Endocrinology for surveillance and management Continue levothyroxine 112 mcg daily Assessment & Plan (2023 10:13 AM CDT): Chronic problem. Clinically & biochemically euthyroid at this time. Currently taking levothyroxine 112mcg daily. Aware to take 1st thing in morning, 30-60 minutes before food/drink/other medications. Will repeat TFTs today at [facility]. Verified that she uses mychart. Aware to check results/results letter in [employer]. Will contact by phone if needed. Assessment & Plan (05/13/2023 11:09 AM TIRE SERVICE SUPERVISOR): Chronic problem. Clinically euthyroid at this time. Reviewed recent labs 02/21 & 02/27 that were vastly different. Will repeat TFTs today at [facility]. Verified that she uses mychart. Aware to check results/results letter in [employer]. Will contact by phone if needed. Aware to take 1st thing in morning, 30-60 minutes before food/drink/other medications. Assessment & Plan (04/30/2023 5:31 PM TIRE SERVICE SUPERVISOR): Chronic. Follows with endocrinology. Continue thyroid medication per specialist Assessment & Plan (01/28/2023 11:38 AM TIRE SERVICE SUPERVISOR): Chronic problem. Improved on current levothyroxine [...] mychart. Aware to check results/results letter in [employer]. Will contact by phone if needed. Will send 90 day refill to [facility] once labs result Verified phone #/address if I need to call her. Pelvic floor dysfunction 04/24/2022 Assessment & Plan (04/24/2022 8:51 AM TIRE SERVICE SUPERVISOR): -no myofascial pain noted on today's exam -continue performing PFPT exercises Vaginal atrophy 04/24/2022 Assessment & Plan (04/24/2022 8:51 AM TIRE SERVICE SUPERVISOR): -discussed decreasing VET to twice per [...] working Assessment & Plan (04/24/2022 8:55 AM TIRE SERVICE SUPERVISOR): -she is not using the the [...] well Assessment & Plan (04/30/2023 5:31 PM TIRE SERVICE SUPERVISOR): Chronic. Struggles some with anxiety at [...] legs Assessment & Plan (04/30/2023 5:31 PM TIRE SERVICE SUPERVISOR): Chronic. Continue medication care per pain [...] report. Assessment & Plan (04/30/2023 5:33 PM TIRE SERVICE SUPERVISOR): Noted previously. These were not mentioned on her CT scan when done to evaluate for pulmonary embolism in August. We will plan 1 year follow-up CT in August to ensure no residual pulmonary nodules needing additional monitoring Cervical post-laminectomy syndrome 05/09/2021 Overview (04/08/2022): [place] pain Dr. Yon omalley Assessment & Plan (10/30/2023 6:32 PM CDT): Chronic. Continue working with the pain management. Stable Assessment & Plan (04/30/2023 5:31 PM TIRE SERVICE SUPERVISOR): Chronic. Continue medication and care per pain management Assessment & Plan (10/28/2022 7:11 PM CDT): Chronic. Continue medication and care per pain management Long-term current use of opiate analgesic 2021 Overview (04/08/2022): Sees pain management, Dr. Marvin Assessment & Plan (04/30/2023 5:33 PM TIRE SERVICE SUPERVISOR): Chronic. Medication care per pain management Osteopenia of multiple sites 02/12/2021 Assessment & Plan (07/13/2024 9:17 PM CDT): Stable, continue calcium supplementation and weight-bearing exercises to maintain bone density Depressive disorder 01/28/2021 Overview (04/08/2022): [facility] Assessment & Plan (04/30/2023 5:30 PM TIRE SERVICE SUPERVISOR): Chronic. Mood is stable. Continue medication care per Psychiatry. Does have some anxiety. I suspect some of her sleep issues are actually related to her mood. Monitor. Sleep hygiene tips provided Assessment & Plan (10/28/2022 7:10 PM CDT): Chronic. Mood is relatively stable. Continue care per Psychiatry Primary fibromyalgia syndrome 01/28/2021 Assessment & Plan (07/13/2024 9:16 PM CDT): Continues to have some pain; continue duloxetine 60 mg nightly, gabapentin 100 mg b.i.d., cyclobenzaprine 10 mg nightly Assessment & Plan (10/30/2023 6:32 PM CDT): [...] monoplegia Assessment & Plan (04/30/2023 5:30 PM TIRE SERVICE SUPERVISOR): Chronic. Continue medication and care per automotive painter helper Assessment & Plan (10/28/2022 7:11 PM CDT): Chronic. Continue medication and care per automotive painter helper Primary localized osteoarthritis of pelvic regio n and thigh 01/28/2021 Tobacco dependence in remission 01/28/2021 Assessment & Plan (04/30/2023 5:33 PM TIRE SERVICE SUPERVISOR): Chronic. Patient will be due for [...] management Assessment & Plan (04/30/2023 5:27 PM TIRE SERVICE SUPERVISOR): Chronic. Can continue medication care for pain management. She is on gabapentin, duloxetine, hydrocodone, and ropinirole Assessment & Plan (10/28/2022 7:11 PM CDT): Chronic. Can continue medication care for pain management. She is on gabapentin, duloxetine, hydrocodone known and ropinirole Assessment & Plan (02/14/2020 4:43 PM TIRE SERVICE SUPERVISOR): Patient has 10 day history of [...] that she continue with Dr. Carreno in [employer] as she sees no need to have [...] 03/24/2017 Assessment & Plan (04/30/2023 5:31 PM TIRE SERVICE SUPERVISOR): Chronic. Symptomatically has improved. Monitor. Assessment [...] doses Assessment & Plan (04/30/2023 5:30 PM TIRE SERVICE SUPERVISOR): Chronic. Follows with endocrinology. Continue medication and care per specialists Assessment & Plan (02/12/2021 12:34 PM TIRE SERVICE SUPERVISOR): With subclinical hyperthyroidism. Will recheck free T4 and free T3 As on a day stay normal, will continue to monitor. COPD, mild 07/21/2009 Assessment & Plan (07/13/2024 9:15 PM CDT): Stable, generally well controlled; continues to have some dyspnea; continue air supra prn for dyspnea or wheezing Assessment & Plan (10/30/2023 6:31 PM CDT): Chronic. Breathing controlled. We will continue Spiriva and p.r.n. albuterol. Declines need for adjustment Assessment & Plan (04/30/2023 5:27 PM TIRE SERVICE SUPERVISOR): Chronic. Breathing is relatively stable. Denies significant shortness of breath and wheezing currently. Continue current inhaler Assessment & Plan (10/28/2022 7:09 PM CDT): Breathing is relatively stable. Denies significant shortness of breath and wheezing currently. Continue current inhaler Hyperlipidemia 07/21/2009 Assessment & Plan (07/13/2024 9:16 PM CDT): Will need updated labs; repeat lipid panel Continue rosuvastatin 20 mg daily Assessment & Plan (10/30/2023 6:31 PM CDT): Chronic. On rosuvastatin. We will continue Assessment & Plan (04/30/2023 5:30 PM TIRE SERVICE SUPERVISOR): Chronic. Patient has a degree of [...] now. Assessment & Plan (04/30/2023 5:31 PM TIRE SERVICE SUPERVISOR): Chronic. Blood pressure is very tightly [...] (04/05/2022): Added automatically from request for surgery [id number] Exposure of implanted vaginal mesh 11/20/2021 04/08/2022 Overview (11/20/2021): Added automatically from request for surgery [id number] Radiculopathy, lumbosacral region 05/09/2021 04/08/2022 Other obesity due to excess calories 05/09/2021 04/08/2022 Gastroesophageal reflux disease 01/28/2021 04/08/2022 Lymphadenopathy 01/28/2021 04/08/2022 Mild chronic obstructive pulmonary disease 01/28/2021 10/28/2022 Encounter to establish care 01/28/2021 04/08/2022 Assessment & Plan (01/28/2021 2:15 PM TIRE SERVICE SUPERVISOR): A visit to establish care has been performed today. Flor Gallego is not up to date on screening tests. She is in need of Mammogram, Lung cancer screen and hepatitis c screen- these have been ordered. She is up to date on needed preventative vaccinations. Cervical radiculopathy 01/28/202104/08 Assessment & Plan (01/28/2021 2:17 PM TIRE SERVICE SUPERVISOR): Her pain management was covered by her neurologist will need new pain doctor (her neurologist is leaving the area at the end of the month) Erythrocytosis 02/24/2020 04/08/2022 Pachyderma of larynx 06/26/2017 023 WILFRED (obstructive sleep apnea) 06/26/2017 04/08/2022 Hot thyroid nodule 02/20/2017 Assessment & Plan (03/28/2022 1:56 PM TIRE SERVICE SUPERVISOR): Chronic problem, not at goal. She has h/o toxic MNG, with both hot and possible cold nodule on I-123 scan, low risk (per [facility]) FNA x 2 in [id number]. She is having increasing trouble swallowing and [...] 06/04/2022 Assessment & Plan (02/12/2021 12:45 PM TIRE SERVICE SUPERVISOR): Risk of cardiac arrhythmias with discussed. The patient is following with cardiology Bone density also requested due to the risk of bone density loss in patient with subclinical hyperthyroidism Assessment & Plan (02/06/2017 4:43 PM TIRE SERVICE SUPERVISOR): Check TFT's Treat as indicated Assessment & Plan (01/09/2017 4:27 PM CDT): Long standing, related to MNG Repeat TFT's Recommendations to follow Most likely will watch without specific intervention. Multinodular goiter (nontoxic) 01/09/2017 09/26/2022 Assessment & Plan (02/12/2021 12:55 PM TIRE SERVICE SUPERVISOR): With FNA showing follicular lesion of unknown significance. With [facility] molecular testing, negative.less than 4 % change of malignancy. Will repeat thyroid ultrasound if not changes will continue monitoring Assessment & Plan (02/06/2017 4:42 PM TIRE SERVICE SUPERVISOR): Differential diagnosis would include benign nodule [...] Encounters Date Type Department Care Team Description 07/26/2024 2:00 PM CDT Office Visit [facility] [address] [place] [phone] Mariam Shah NP Postoperative hypothyroidism (Primary Dx) 07/15/2024 Results Follow[facility]Up [facility] [address] [phone] Eddie Funez MD 07/01/2024 4:00 PM CDT Office Visit [facility] [address] [phone] Eddie Funez MD Need for hepatitis B screening test (Primary Dx); Encounter to establish care with new doctor; Postoperative hypothyroidism; Encounter for screening mammogram for malignant neoplasm of breast; Lung nodules; Post-menopause; COPD, mild (HCC); Pure hypercholesterolemia; Primary fibromyalgia syndrome; Osteopenia of multiple sites 06/23/2024 9:35 AM CDT Office Visit [address] [place] [phone] EyersCitlali NP Grade III hemorrhoids 05/13/2024 Results [facility] [address] [phone] Eddie Funez MD 05/08/2024 Orders Only [facility] [address] [place] [id number] Eddie Funez MD 05/04/2024 Telephone [facility] [address] [place] [phone] Mariam Shah NP Test Results (Labs) from Last 3 Months Immunizations Immunization Administration Dates Next Due Influenza, Quadrivalent, Sadia [...] polypectomy SKIN SURGERY 03/24/2012 - 03/23/2013 chin; benigh intradermal melanocytic nevus SKIN SURGERY 03/24/2012 - [...] Osteoporosis COPD (chronic obstructive pu lmonary disease) (HCC) Glaucoma Migraines Anxiety Cataract Just starting Cervical radiculopathy 01/28/2021 Exposure of implanted vaginal mesh 11/20/2021 Added automatically from request for surgery [id number] Chronic low back pain Restless leg Erythrocytosis 03/09/2020 secondary erythr ocytosis Jak2 - saw Heme Goiter 04/05/2022 Added automatica lly from request for surgery [id number] Coronary artery calcificatio n seen on CAT scan 10/28/2022 Ocular migraine Erosion of bladder suspension mesh Hammer toes of both feet Bulging of thoracic interver tebral disc Osteoarthritis Sciatica Kidney problem atopic kidney Family History Medical History Relation Name Comments Alcohol abuse Father Elmo Smyth Early Father Elmo Smyth Heart attack Father Elmo Smyth Heart disease Father Elmo Smyth COPD Maternal Grandfather Issa Simpson Diabetes Maternal Grandfather Issa Simpson Cancer Maternal Grandmother Pamella Jung Colon cancer Maternal Grandmother Pamella Jung Obesity Maternal Grandmother Pamella Jung Arthritis Mother Phoebe [place] COPD Mother Phoebe [place] Cancer Mother Phoebe [place] Lung cancer Mother Phoebe [place] Obesity Mother Phoebe [place] Osteoporosis Mother Phoebe [place] Atrial fibrillation Sister 1 Heart disease Sister 1 Lung cancer Sister 1 Stroke Sister 2 Cailin Weathers Alcohol abuse Sister 3 Kendal Y Smyth Depression Sister 3 Kendal Y Smyth Ovarian cancer Sister 3 Kendal Y Smyth Alcohol abuse Son 1 Alireza A Funez Allergy (severe) Son 2 Booker WW Funez Jr Anesthesia problems Neg Hx Relation Name Status Comments Father Elmo Smyth Maternal Grandfather Issa Simpson Maternal Grandmother Pamella Jung Mother Phoebe [place] Paternal Grandfather Paternal Grandmother Sister 1 [id number]|2024-07-31 20:11:00|2024-07-31 20:10:00|XMS_ITS|[facility]|External Medical Summaries|[id number]|" Referral Summary Created on: July 31, 2024 Flor Gallego : 1960 Sex: Female Author Organization [facility] [address] [place] [address] Address [address] [place] [address] Care Team Providers Care Blue Line Hanger Name Role Phone Evon Sernatera Phillips MD Unavailable [phone] Alfie Vegas MD Unavailable [phone] Toni Cintron MD Unavailable Brendan Thomas DPM Unavailable [phone] Vivi Wood CNM Unavailable Tahmina Marvin MD Unavailable Cristofer Alicia MD Unavailable [phone] Prashanth Lee MD Unavailable Roberto Carlos Fregoso MD Unavailable García Siddiqui DO Unavailable Ana Delarosa MD Unavailable Orion Sommer MD Unavailable [phone] Alban Hernandez MD Unavailable Rehana Mckeon MD Unavailable Eddie Funez MD Primary Care Provider [phone] Encounters Date Type Department Care Team Description 07/26/2024 2:00 PM CDT Office Visit [facility] [address] [place] [phone] Mariam Shah NP Postoperative hypothyroidism (Primary Dx) 07/15/2024 Results [facility] [address] [phone] Eddie Funez MD 07/01/2024 4:00 PM CDT Office Visit [facility] [address] [phone] Eddie Funez MD Need for hepatitis B screening test (Primary Dx); Encounter to establish care with new doctor; Postoperative hypothyroidism; Encounter for screening mammogram for malignant neoplasm of breast; Lung nodules; Post-menopause; COPD, mild (HCC); Pure hypercholesterolemia; Primary fibromyalgia syndrome; Osteopenia of multiple sites 06/23/2024 9:35 AM CDT Office Visit [address] [place] [phone] EyeCitlali lim NP Grade III hemorrhoids 05/13/2024 Results [facility] [address] [phone] Eddie Funez MD 05/08/2024 Orders Only [facility] Information Management [address] [place] [id number] Eddie Funez MD 05/04/2024 Telephone [facility] [address] [place] [phone] Mariam Shah NP Test Results (Labs) from Last 3 Months Allergies Active Allergy Reactions Criticality Noted Date Comments Adhesive Other (See comments) Low 05/16/2022 Tears skin Bacitracin Rash Medium 02/04/2024 Neomycin Sulfate Rash Medium 02/04/2024 Gxdlrlvm-Jzaokfofhk-Ejqnbpah n Itching,Rash Medium 06/07/2015 Polymyxin B Rash Medium 02/04/2024 Venom-Honey Bee Swelling Medium 10/31/2022 Medications albuterol 2.5 mg /3 mL (0.083 %) nebulizer solution Take 3 mL (2.5 mg total) by nebulization every 6 (six) hours as needed for wheezing Active gabapentin (NEURONTIN) 100 mg capsuleIndications :Neuropathic Pain Take 1 capsule (100 mg total) by mouth 2 (two) times a day 02/21/20 20 Active multivit-min/iron/ folic acid/K (BARIATRIC MULTIVITAMINS ORAL)Indications:s upplement Take 1 tablet by mouth every morning Active cyclobenzaprine (FLEXERIL) 10 mg tabletIndications: Fibromyalgia,Muscl e Spasm Take 1 tablet (10 mg total) by mouth nightly 10/31/19 22 Active HYDROcodone-acetam inophen (NORCO) 10-325 mg per tablet Take 1 tablet by mouth every 6 (six) hours as needed for pain 03/27/19 23 Active rOPINIRole (REQUIP) 3 mg tabletIndications: Restless Legs Syndrome Take 1 tablet (3 mg total) by mouth nightly Active albuterol HFA (PROVENTIL HFA,VENTOLIN HFA,PROAIR HFA) 90 mcg/actuation inhaler Inhale 2 puffs every 6 (six) hours as needed for wheezing Active calcium citrate (CALCITRATE) 950 mg (200 mg of elemental calcium) tabletIndications: hypocalcemia Take 1 tablet (950 mg total) by mouth 3 (three) times a day for 7 days, THEN 1 tablet (950 mg total) 2 (two) times a day for 7 days, THEN 1 tablet (950 mg total) daily for 7 days. 42 tablet 05/21/19 23 029 Active estradioL (ESTRACE) 0.01 % (0.1 mg/gram) vaginal creamIndications:A trophy of Vulva Insert 1 g into the vagina 3 (three) times a week Tues and Th 12 g 05/30/19 23 029 Active rOPINIRole (REQUIP) 1 mg tablet TAKE 4 TABLETS BY MOUTH 1 TO 2 HOURS BEFORE BEDTIME FOR RESTLESS LEG SYMPTOMS 07/02/19 23 Active spironolactone (ALDACTONE) 25 mg tablet Take 1 tablet (25 mg total) by mouth daily 07/17/19 23 Active EPINEPHrine 0.3 mg/0.3 mL auto-injection syringe INJECT 1 PEN IN THE MUSCLE ONE TIME DIRECTED 07/25/19 24 Active mupirocin (BACTROBAN) 2 % ointmentIndication s:Skin infection Apply topically 2 (two) times a day Prn for skin infection at wound 22 g 1 10/30/19 24 Active ipratropium (ATROVENT) 42 mcg (0.06 %) nasal sprayIndications:S easonal allergic rhinitis due to pollen Administer 2 sprays into each nostril 3 (three) times a day 180 mL 11 12/26/19 24 Active cetirizine (ZyrTEC) 10 mg tabletIndications: Seasonal allergic rhinitis due to pollen Take 1 tablet (10 mg total) by mouth daily 30 tablet 11 12/26/19 24 025 Active levothyroxine (SYNTHROID) 112 mcg tabletIndications: Postoperative hypothyroidism TAKE 1 TABLET BY MOUTH DAILY 100 tablet 3 01/05/[address] (CYMBALTA) 60 mg capsuleIndications :Anxiety with Depression,Fibromy algia Take 1 capsule (60 mg total) by mouth nightly 90 capsule 1 01/12/20 24 025 Active potassium chloride ER 20 mEq CR tablet TAKE 2 TABLETS BY MOUTH DAILY FOR 3 DAYS, THEN TAKE 1 TABLET BY MOUTH EVERY MORNING WITH BREAKFAST 93 tablet 1 01/26/20 24 Active rosuvastatin (CRESTOR) 20 mg tabletIndications: Peripheral vascular disease TAKE 1 TABLET BY MOUTH DAILY 30 tablet 11 02/23/20 24 Active losartan (COZAAR) 50 mg tabletIndications: Primary hypertension TAKE 1 TABLET(50 MG) BY MOUTH EVERY NIGHT 90 tablet 1 04/30/19 25 Active albuterol-budesoni de 90-80 mcg/actuation HFA aerosol inhaler Inhale 1-2 puffs every 6 (six) hours as needed (dyspnea or coughing) 32.1 g 3 07/02/19 25 026 Active Active Problems Problem Noted Date Diagnosed Date Grade III hemorrhoids 07/21/2024 Assessment & Plan (07/21/2024 10:32 AM CDT): Acute onset anal pain. Grade 3. Small thrombosed, however this is resolving. We discussed topical management. At this time no emergent surgery is offered. Should she wish to proceed with surgery in the future, she will contact our office. Discussed over the counter products to reduce symptoms. Seasonal allergic rhinitis due to pollen 024 Assessment & Plan (12/26/2023 9:11 AM CDT): Nasal saline spray (Simply saline, [employer] Remedies, [place], [place]) 2 second sprays or 2 squeezes into [...] evaluation Assessment & Plan (04/30/2023 5:32 PM TIRE SERVICE SUPERVISOR): Noted on more recent labs. Patient had some blood work through her specialists. I have encouraged her to get me a copy of these to review Transaminitis 04/30/2023 Assessment & Plan (04/30/2023 5:35 PM TIRE SERVICE SUPERVISOR): Present since least 2021. The elevated [...] 10/28/2022 Assessment & Plan (04/30/2023 5:32 PM TIRE SERVICE SUPERVISOR): Chronic calcification noted on prior imaging. [...] symptoms Assessment & Plan (04/30/2023 5:32 PM TIRE SERVICE SUPERVISOR): Chronic but symptomatically improving. Working with [...] shoe. Defer care to specialists Intestinal intussusception 08/16/2022 Overview (08/16/2022): Multiple areas of short segment small bowel intussusception incidentally noted on CT angiogram for circulation issues Venous insufficiency 07/01/2022 Postoperative hypothyroidism 06/04/2022 Assessment & Plan (07/26/2024 2:13 PM CDT): Chronic problem. Clinically & biochemically euthyroid at this time. Currently taking levothyroxine 112mcg daily. Aware to take 1st thing in morning, 30-60 minutes before food/drink/other medications. Will repeat TFTs at [facility]. Verified that she uses mychart. Aware to check results/results letter in [employer]. Will contact by phone if needed. Assessment & Plan (07/13/2024 9:15 PM CDT): Stable, generally well controlled, follows with Endocrinology for surveillance and management Continue levothyroxine 112 mcg daily Assessment & Plan (2023 10:13 AM CDT): Chronic problem. Clinically & biochemically euthyroid at this time. Currently taking levothyroxine 112mcg daily. Aware to take 1st thing in morning, 30-60 minutes before food/drink/other medications. Will repeat TFTs today at [facility]. Verified that she uses mychart. Aware to check results/results letter in [employer]. Will contact by phone if needed. Assessment & Plan (05/13/2023 11:09 AM TIRE SERVICE SUPERVISOR): Chronic problem. Clinically euthyroid at this time. Reviewed recent labs 02/21 & 02/27 that were vastly different. Will repeat TFTs today at [facility]. Verified that she uses mychart. Aware to check results/results letter in [employer]. Will contact by phone if needed. Aware to take 1st thing in morning, 30-60 minutes before food/drink/other medications. Assessment & Plan (04/30/2023 5:31 PM TIRE SERVICE SUPERVISOR): Chronic. Follows with endocrinology. Continue thyroid medication per specialist Assessment & Plan (01/28/2023 11:38 AM TIRE SERVICE SUPERVISOR): Chronic problem. Improved on current levothyroxine [...] mychart. Aware to check results/results letter in [employer]. Will contact by phone if needed. Will send 90 day refill to [facility] once labs result Verified phone #/address if I need to call her. Pelvic floor dysfunction 04/24/2022 Assessment & Plan (04/24/2022 8:51 AM TIRE SERVICE SUPERVISOR): -no myofascial pain noted on today's exam -continue performing PFPT exercises Vaginal atrophy 04/24/2022 Assessment & Plan (04/24/2022 8:51 AM TIRE SERVICE SUPERVISOR): -discussed decreasing VET to twice per [...] working Assessment & Plan (04/24/2022 8:55 AM TIRE SERVICE SUPERVISOR): -she is not using the the [...] well Assessment & Plan (04/30/2023 5:31 PM TIRE SERVICE SUPERVISOR): Chronic. Struggles some with anxiety at [...] legs Assessment & Plan (04/30/2023 5:31 PM TIRE SERVICE SUPERVISOR): Chronic. Continue medication care per pain [...] report. Assessment & Plan (04/30/2023 5:33 PM TIRE SERVICE SUPERVISOR): Noted previously. These were not mentioned on her CT scan when done to evaluate for pulmonary embolism in August. We will plan 1 year follow-up CT in August to ensure no residual pulmonary nodules needing additional monitoring Cervical post-laminectomy syndrome 05/09/2021 Overview (04/08/2022): [facility] pain managementDr. Marvin Assessment & Plan (10/30/2023 6:32 PM CDT): Chronic. Continue working with the pain management. Stable Assessment & Plan (04/30/2023 5:31 PM TIRE SERVICE SUPERVISOR): Chronic. Continue medication and care per pain management Assessment & Plan (10/28/2022 7:11 PM CDT): Chronic. Continue medication and care per pain management Long-term current use of opiate analgesic 2021 Overview (04/08/2022): Sees pain management, Dr. Marvin Assessment & Plan (04/30/2023 5:33 PM TIRE SERVICE SUPERVISOR): Chronic. Medication care per pain management Osteopenia of multiple sites 02/12/2021 Assessment & Plan (07/13/2024 9:17 PM CDT): Stable, continue calcium supplementation and weight-bearing exercises to maintain bone density Depressive disorder 01/28/2021 Overview (04/08/2022): Sees psych, Vivi Wood Assessment & Plan (04/30/2023 5:30 PM TIRE SERVICE SUPERVISOR): Chronic. Mood is stable. Continue medication care per Psychiatry. Does have some anxiety. I suspect some of her sleep issues are actually related to her mood. Monitor. Sleep hygiene tips provided Assessment & Plan (10/28/2022 7:10 PM CDT): Chronic. Mood is relatively stable. Continue care per Psychiatry Primary fibromyalgia syndrome 01/28/2021 Assessment & Plan (07/13/2024 9:16 PM CDT): Continues to have some pain; continue duloxetine 60 mg nightly, gabapentin 100 mg b.i.d., cyclobenzaprine 10 mg nightly Assessment & Plan (10/30/2023 6:32 PM CDT): [...] monoplegia Assessment & Plan (04/30/2023 5:30 PM TIRE SERVICE SUPERVISOR): Chronic. Continue medication and care per automotive painter helper Assessment & Plan (10/28/2022 7:11 PM CDT): Chronic. Continue medication and care per automotive painter helper Primary localized osteoarthritis of pelvic regio n and thigh 01/28/2021 Tobacco dependence in remission 01/28/2021 Assessment & Plan (04/30/2023 5:33 PM TIRE SERVICE SUPERVISOR): Chronic. Patient will be due for [...] management Assessment & Plan (04/30/2023 5:27 PM TIRE SERVICE SUPERVISOR): Chronic. Can continue medication care for pain management. She is on gabapentin, duloxetine, hydrocodone, and ropinirole Assessment & Plan (10/28/2022 7:11 PM CDT): Chronic. Can continue medication care for pain management. She is on gabapentin, duloxetine, hydrocodone known and ropinirole Assessment & Plan (02/14/2020 4:43 PM TIRE SERVICE SUPERVISOR): Patient has 10 day history of [...] that she continue with Dr. Carreno in [employer] as she sees no need to have [...] 03/24/2017 Assessment & Plan (04/30/2023 5:31 PM TIRE SERVICE SUPERVISOR): Chronic. Symptomatically has improved. Monitor. Assessment [...] doses Assessment & Plan (04/30/2023 5:30 PM TIRE SERVICE SUPERVISOR): Chronic. Follows with endocrinology. Continue medication and care per specialists Assessment & Plan (02/12/2021 12:34 PM TIRE SERVICE SUPERVISOR): With subclinical hyperthyroidism. Will recheck free T4 and free T3 As on a day stay normal, will continue to monitor. COPD, mild 07/21/2009 Assessment & Plan (07/13/2024 9:15 PM CDT): Stable, generally well controlled; continues to have some dyspnea; continue air supra prn for dyspnea or wheezing Assessment & Plan (10/30/2023 6:31 PM CDT): Chronic. Breathing controlled. We will continue Spiriva and p.r.n. albuterol. Declines need for adjustment Assessment & Plan (04/30/2023 5:27 PM TIRE SERVICE SUPERVISOR): Chronic. Breathing is relatively stable. Denies significant shortness of breath and wheezing currently. Continue current inhaler Assessment & Plan (10/28/2022 7:09 PM CDT): Breathing is relatively stable. Denies significant shortness of breath and wheezing currently. Continue current inhaler Hyperlipidemia 07/21/2009 Assessment & Plan (07/13/2024 9:16 PM CDT): Will need updated labs; repeat lipid panel Continue rosuvastatin 20 mg daily Assessment & Plan (10/30/2023 6:31 PM CDT): Chronic. On rosuvastatin. We will continue Assessment & Plan (04/30/2023 5:30 PM TIRE SERVICE SUPERVISOR): Chronic. Patient has a degree of [...] now. Assessment & Plan (04/30/2023 5:31 PM TIRE SERVICE SUPERVISOR): Chronic. Blood pressure is very tightly [...] (04/05/2022): Added automatically from request for surgery [id number] Exposure of implanted vaginal mesh 11/20/2021 04/08/2022 Overview (11/20/2021): Added automatically from request for surgery [id number] Radiculopathy, lumbosacral region 05/09/2021 04/08/2022 Other obesity due to excess calories 05/09/2021 04/08/2022 Gastroesophageal reflux disease 01/28/2021 04/08/2022 Lymphadenopathy 01/28/2021 04/08/2022 Mild chronic obstructive pulmonary disease 01/28/2021 10/28/2022 Encounter to establish care 01/28/2021 04/08/2022 Assessment & Plan (01/28/2021 2:15 PM TIRE SERVICE SUPERVISOR): A visit to establish care has been performed today. Flor Gallego is not up to date on screening tests. She is in need of Mammogram, Lung cancer screen and hepatitis c screen- these have been ordered. She is up to date on needed preventative vaccinations. Cervical radiculopathy 01/28/202104/08 Assessment & Plan (01/28/2021 2:17 PM TIRE SERVICE SUPERVISOR): Her pain management was covered by her neurologist will need new pain doctor (her neurologist is leaving the area at the end of the month) Erythrocytosis 02/24/2020 04/08/2022 Pachyderma of larynx 06/26/2017 023 WILFRED (obstructive sleep apnea) 06/26/2017 04/08/2022 Hot thyroid nodule 02/20/2017 Assessment & Plan (03/28/2022 1:56 PM TIRE SERVICE SUPERVISOR): Chronic problem, not at goal. She has h/o toxic MNG, with both hot and possible cold nodule on I-123 scan, low risk (per [facility]) FNA x 2 in [id number]. She is having increasing trouble swallowing and [...] 06/04/2022 Assessment & Plan (02/12/2021 12:45 PM TIRE SERVICE SUPERVISOR): Risk of cardiac arrhythmias with discussed. The patient is following with cardiology Bone density also requested due to the risk of bone density loss in patient with subclinical hyperthyroidism Assessment & Plan (02/06/2017 4:43 PM TIRE SERVICE SUPERVISOR): Check TFT's Treat as indicated Assessment & Plan (01/09/2017 4:27 PM CDT): Long standing, related to MNG Repeat TFT's Recommendations to follow Most likely will watch without specific intervention. Multinodular goiter (nontoxic) 01/09/2017 09/26/2022 Assessment & Plan (02/12/2021 12:55 PM TIRE SERVICE SUPERVISOR): With FNA showing follicular lesion of unknown significance. With [facility] molecular testing, negative.less than 4 % change of malignancy. Will repeat thyroid ultrasound if not changes will continue monitoring Assessment & Plan (02/06/2017 4:42 PM TIRE SERVICE SUPERVISOR): Differential diagnosis would include benign nodule [...] Palpitations 07/21/2009 04/08/2022 Hypertensive disorder 07/21/20092022 Immunizations Immunization Administration Dates Next Due Influenza, Quadrivalent, Sadia l Culture-based MDCK, Preservative Free, Antibiotic Free, Intramuscular 05/01/2022 Influenza, Quadrivalent, Split, Intramuscular Influenza, Quadrivalent, Spl it, Preservative Free, Intramuscular 05/13/2023,01/24/2021 [place] SARS-CoV-2 Monovalent Vaccination (12+ Yrs) PURPLE 09/09/2020,08/19/2020 [...] on file Legal Sex Female 7:24 PM TIRE SERVICE SUPERVISOR Gender Identity Female 02/08/2020 5:48 PM TIRE SERVICE SUPERVISOR Sexual Orientation Straight 02/08/2020 5: 48 PM TIRE SERVICE SUPERVISOR Last Filed Vital Signs Vital Sign Reading Time Taken Comments Blood Pressure 114/64 07/26/2024 1:43 PM CDT Pulse 100 07/26/2024 1:43 PM CDT Temperature 36.7 C (98.1 F) 07/01/2024 3:39 PM CDT Respiratory Rate 18 07/01/2024 3:39 PM CDT Oxygen Saturation 98% 07/01/2024 3:39 PM CDT Inhaled Oxygen Concentration - - Weight 70.8 kg (156 lb) 07/26/2024 1:43 PM CDT Height 162.6 cm (5' 4 ) 07/26/2024 1:43 PM CDT Body Mass Index 26.78 07/26/2024 1:43 PM CDT Plan of Treatment Not on file Medical Devices Implanted Type Area Gas Derrick Operator Device Identifier Shelf Expiration Date Model / Serial / Lot Ethicon Endo Surgery Tvt Prolene 45x1.1cm Tape Mesh Transvaginal Blue [id number] - [id number] Implanted:Qty: 1 on 05/29/2022 by Aura Driscoll MD at [facility] Mesh N/A: Urethra Ethicon Endo Surgery [id number] 11/21/2024 [id number] / / [employer] Sls-Clip Ligate Triangular Wire Kathleen Groove Small Chevron Clip Latex Free [id number] - [id number] Implanted:Qty: 2 on 05/20/2022 by Sameer Alan MD at [facility] [employer] [id number] / / [employer] Sls-Clip Ligate Triangular Wire Kathleen Groove Small Chevron Clip Latex Free [id number] - [id number] Implanted:Qty: 2 on 05/20/2022 by Sameer Alan MD at [facility] [employer] [id number] / / Procedures Procedure Name Priority Date/Time Associated Diagnosis Comments LIPID PANEL Routine 07/14/2024 9:59 AM CDT Encounter to establish care with new doctor COMPREHENSIVE METABOLIC PANEL Routine 07/14/2024 9:59 AM CDT Encounter to establish care with new doctor CBC WITH AUTO DIFFERENTIAL Routine 07/14/2024 9:59 AM CDT Encounter to establish care with new doctor HEPATITIS B SURFACE ANTIBODY (IMMUNE STATUS) Routine 07/14/2024 9:59 AM CDT Need for hepatitis B screening test HEPATITIS B CORE ANTIBODY, TOTAL Routine 07/14/2024 9:59 AM CDT Need for hepatitis B screening test HEPATITIS B SURFACE ANTIGEN Routine 07/14/2024 9:59 AM CDT Need for hepatitis B screening test ESTRADIOL Routine 07/14/2024 9:39 AM CDT Post-menopause SCAN - RADIOLOGY/IMAGING 05/08/2024 HM MAMMOGRAPHY Routine 10/31/2023 2:52 PM CDT HEPATITIS C SCREENING Routine 04/06/2023 COLONOSCOPY Routine 09/18/2016 from Last 3 Months or Most Recently Relevant to Health Maintenance Results * (ABNORMAL) CBC with auto differential (07/14/2024 9:59 AM CDT) WBC 6.3 3.4 - 10.8 x10E3/uL [facility] - 01 RBC 5.18 3.77 - 5.28 x10E6/uL [facility] - 01 Hgb 15.9 11.1 - 15.9 g/dL [facility] - 01 Hct 48.6(H
--- OUTSIDE RECORDS SUMMARY | 2024-07-31 20:10 | XMS_ITS | Continuity of Care Document ---
Author Organization [employer] [place] Address [address] [place] [address] Phone Care Team Providers Care Pad Machine Operator Name Role Phone Magda PT, MINGT, Joe Unavailable Unavailable Procedures Procedure Date Progress Note Therapeutic Activities Neuromuscular Re-Ed Therapeutic Exercise Therapeutic Activities Neuromuscular Re-Ed Therapeutic Exercise Therapeutic Activities Therapeutic Exercise Neuromuscular Re-Ed Therapeutic Activities Neuromuscular Re-Ed Therapeutic Exercise Therapeutic Exercise Neuromuscular Re-Ed Therapeutic Activities Therapeutic Activities Neuromuscular Re-Ed Neuromuscular Re-Ed Therapeutic [...] Diagnoses Date Provider Providers Copied on Encounter [facility] [address], [place], [place], [id number], tel:[phone] [place] No Information Dec- 2 Magda Diaz. . [facility], [place], [place], [address], tel:[phone] [place] No Information Nov-2 2 Magda Diaz. . Referring Provider: Owen Meadows0 [facility] [address], [place], [address]. tel:[phone] [facility], [place], [place], [address], tel:[phone] [place] No Information Sep-1 2 Magda Diaz. . Referring Provider: Cristofer Alicia [address] [facility] [address], [place], [address]. tel:[phone] [facility] [address], [place], [place], [id number], [place] tel:[phone] [place] No Information Sep-1 - 2 [place], [place], [place]. Referring Provider: Jessica Meadows [facility] [address], [place], [address]. tel:[phone] [facility] [address], [place], [place], [id number], [place] tel:[phone] [place] No Information Sep-0 2 Modglin Ralph. . Referring Provider: Jessica Meadows [facility] [address], [place], [address]. tel:[phone] [facility], [place], [place], [address], [place] tel:[phone] [place] No Information Sep-0 2 Klahn Joe. . Referring Provider: Cristofer Alicia, Owen0 [facility] [address], [place], [address]. tel:[phone] [facility], [place], [place], [address], [place] tel:[phone] [place] No Information Sep-0 2 Klahn Joe. . Referring Provider: Cristofer Alicia Owen0 [facility] [address], [place], [address]. tel:[phone] [facility], [place], [place], [address], [place] tel:[phone] [place] No Information 2 Klahn Joe. . Referring Provider: Cristofer Alicia Owen0 [facility] [address], [place], [address]. tel:[phone] [facility], [place], [place], [id number], [place] tel:[phone] [place] No Information 2 Klahn Joe. . Referring Provider: Cristofer Alicia Owen0 [facility] [address], [place], [address]. tel:[phone] [facility], [place], [place], [address], [place] tel:[phone] [place] No Information 2 Klahn Joe. . Referring Provider: Cristofer Alicia Owen0 [facility] [address], [place], [address]. tel:[phone] [facility], [place], [place], [address], [place] tel:[phone] [place] No Information 9 Treaster Yaima. . [facility], [place], [place], [id number], [place] tel:[phone] [place] No Information 9 Treaster Yaima. . [facility], [place], [place], [address], [place] tel:[phone] [place] No Information Karina Erwin. . [facility], [place], [place], [address], [place] tel:[phone] [place] No Information 9 Karina Erwin. . Family History Family Member Type Diagnosis Age At Onset No Information Payers Payer name Insurance type Covered democrat ID Zak plascenciajune(s) [employer] [facility] [employer] [id number] Social History Type Description Quantity Date Captured [...]
--- OUTSIDE RECORDS SUMMARY | 2024-07-31 20:11 | XMS_ITS | Data Portability ---
Author Organization [facility], Main Office Address [address] [place] [address] Assessment No assessment recorded. Plan of Treatment Reminders Order Date Submit Date Provider Last Modified By Organization Details Last Modified Time Details Appointments None recorded. Lab ceruloplas min, serum [address] (Lab), [address] [place], [address], 4 12:03:52 mitochondr ial Ab, serum [address] (Lab), [address] [place], [address], 4 12:03:57 smooth muscle Ab, serum [address] (Lab), [address] [place], [address], 4 12:04:02 HBsAg (hepatitis B surface Ag), serum [address] (Lab), [address] [place], [address], 4 12:04:07 hepatitis C RNA, qualitativ e, serum [address] (Lab), [address] [place], [address], 4 12:04:12 Referral colon & rectal surgeon referral - Please contact patient to schedule 2024 025 JAYLIN Hollins MD, [facility] [address], [address], 14:10:35 Procedures None recorded. Surgeries None recorded. Imaging None recorded. Medication Orders None recorded. Patient TargetsNo targets recorded. Patient Instructions Encounter Date Encounter Id Patient Instructions Last Modified By Organization Details Last Modified Time 04/09/2023 [id number] PT WITH ELEVATED LIVER ENZYMES . SX ARE MOST LIKELY B/C STATIN MED . CHECK LIVER MARKERS . F/U IN 4 WEEKS . [email or web address] Not available 04/09/2023 16:06:57 07/14/2024 [id number] PT WITH RECTAL PROLAPSE . REFER TO DR HOLLINS. [email or web address] Not available 07/14/2024 13:04:20 Reason for Referral Colon & Rectal Surgeon Refer ral for Rectal prolapse Please contact patient to schedule Referring Physician: Minerva Serna, Gastroenterology, Encounter Date: 07/14/2024 Results Created Date Observation Date Name Description Value Unit Range Abnormal Flag Note LastModifiedBy Organization Detail LastModifiedTime Result Notes None recorded. Problems Name Problem SNOMED Code Status Onset Date Resolution Date Notes Provider Name and Address Organization Details Recorded Time Chronic obstructiv e pulmonary disease 88398304 Active Not Available [facility] 3 07:29:57 Non-toxic nodular goiter 296108152 Active 2016 Not Available [facility] 3 07:29:57 Tobacco dependence in remission 188514495 Active Not Available [facility] 3 07:29:57 Asthma 940447405 Active Not Available [facility] 3 07:29:57 Localized, primary osteoarthr itis of the pelvic region and thigh 437235624 Active Not Available [facility] 3 07:29:57 Gastroesop hageal reflux disease 848614319 Active Not Available [facility] 3 07:29:57 Gastroesop hageal reflux disease without esophagiti s 488952993 Active 2021 Not Available [facility] 3 07:29:57 History of emphysema 668030118527 72987 Active Not Available [facility] 3 07:29:57 Vaginal discharge 635000956 Active Not Available [facility] 3 07:29:57 Lymphadeno yazan 45238236 Active Not Available [facility] 3 07:29:57 Vaginitis 39371946 Active Not Available [facility] 3 07:29:58 Mild chronic obstructiv e pulmonary disease 898927738 Active Not Available [facility] 3 07:29:58 Bronchitis 76558336 Active Not Available [facility] 3 07:29:58 Depressive disorder 34432891 Active Not Available [facility] 3 07:29:58 Major depressive disorder 953557467 Active Not Available [facility] 3 07:29:58 Hypertensi ve disorder 49422942 Active Not Available [facility] 3 07:29:58 Osteoarthr itis 522793970 Active knee, pelvic and thigh Not Available [facility] 3 07:29:58 Subclinica l hyperthyro idism 258734820 Active 2016 Not Available [facility] 3 07:29:58 Hypokalemi a 96380737 Active Not Available [facility] 3 07:29:58 Migraine with aura 3098031 Active 2017 Not Available [facility] 3 07:29:58 Hoarse 38092167 Active Not Available [facility] 3 07:29:59 Hyperlipid emia 77433093 Active Not Available [facility] 3 07:29:59 Female stress incontinen ce 23812687 Active Not Available [facility] 3 07:29:59 Polyp of colon 99865640 Active 2016 Not Available [facility] 3 07:29:59 Degenerati on of interverte bral disc 33740765 Active Not Available [facility] 3 07:29:59 Obstructiv e sleep apnea syndrome 69660664 Active Not Available [facility] 3 07:29:59 Fatigue 37825378 Active Not Available [facility] 3 07:29:59 Thyrotoxic osis 50566539 Active 2016 Not Available [facility] 3 07:29:59 Primary fibromyalg ia syndrome 37978062 Active Not Available [facility] 3 07:30:00 Liver enzymes level above reference range 278171994 Active 2023 Minerva Serna MD [address] [facility], [address] [place] [address], [place], [address] , [employer] 4 16:01:54 Rectal prolapse 63133544 Active 2024 Minerva Serna MD [address], [place], [address] , [employer] [facility] 5 13:03:30 Problem Notes None recorded. Procedures Surgical History Date Name Laterality Status Provider Name and Address Organization Details Recorded Time 1 Gastric Bypass completed Not Available [facility] 05/22/2022 07:26:21 Imaging Results None recorded. Procedure Notes None recorded. Medical Equipment None Reported. Allergies Allergen ID Allergen Name Allergen Category Reaction Reaction Severity Criticality Documentation Date Start Date Code Code System Note Provider Name and Address Organization Details Recorded Time 85917 bacitraci n / neomycin / polymyxin B medicatio n itching rash moderate mild Not available 05/22/20222015 23983 9 RxNorm Not Available [facility] 3 07:34:24 25254 lisinopri l medicatio n Not available Not available Not available 05/22/2022 09472 RxNorm error not aller gic per pt Not Available [facility] 3 07:34:25 Medications Name Sig Start Date Stop Date Status Note LastModified by Organization Details LastModified Time Prescriptio n - Change active Not Available Not Available N ot Available cyclobenzap rine 10 mg tablet TAKE 1 TABLET BY MOUTH EVERY OTHER DAY NEEDED active Not Available Not Available No t Available amoxicillin 500 mg capsule TAKE ONE [...] completed Not Available Not Available Not Available cetirizine 10 mg tablet TAKE ONE TABLET BY MOUTH DAILY active Not Available Not Available No t Available azithromyci n 250 mg tablet Take [...] 1 TABLET BY MOUTH FIVE TIMES DAILY NEEDED active Not Available Not Available No t Available omeprazole 40 mg capsule,del ayed release [...] ER 20 mEq tablet,exte nded release(par t/cryst) active Not Available Not Available Not Available meclizine [...] mg capsule TK 1 C PO TID 09/03 completed Not Available Not Available Not [...] Available mupirocin 2 % topical ointment APPLY INTRANASA LLY TWICE DAILY active Not Available Not Available No t Available furosemide 20 mg tablet TAKE 1 TABLET BY MOUTH EVERY DAY 03/27 completed Not Available Not Available Not Available gabapentin 100 mg capsule TAKE 1 CAPSULE BY MOUTH THREE TIMES DAILY active Not Available Not Available No t Available ergocalcife rol (vitamin D2) 1,250 mcg (50,000 unit) capsule TAKE 1 CAPSULE BY MOUTH EVERY WEEK 03/27 completed Not Available Not Available Not Available azelastine 137 mcg (0.1 %) nasal spray USE 1 SPRAY IN EACH NOSTRIL EVERY 12 HOURS 03/27 completed Not Available Not Available Not Available epinephrine 0.3 mg/0.3 mL injection, auto-inject or INJECT 1 PEN IN THE MUSCLE ONE TIME DIRECTED active Not Available Not Available No t Available ibuprofen 600 mg tablet TAKE 1 TABLET BY MOUTH EVERY 6 HOURS NEEDED FOR MODERATE PAIN NOT RELIEVED WITH TYLENOL 03/27 completed Not Available Not Available Not Available cefuroxime axetil 500 mg tablet TAKE 1 TABLET BY MOUTH TWICE DAILY active Not Available Not Available No t Available levofloxaci n 500 mg tablet TK 1 T PO Q 24 H 03/27 completed Not Available Not Available Not Available estradiol 0.01% (0.1 mg/gram) vaginal cream INSERT 1 GRAM VAGINALLY 3 TIMES A WEEK 03/27 completed Not Available Not Available Not Available methylpredn isolone 4 mg tablets in a dose pack FOLLOW PACKAGE DIRECTION S active Not Available Not Available No t Available albuterol sulfate HFA 90 mcg/actuati on aerosol inhaler INHALE 2 PUFFS BY MOUTH EVERY 4 HOURS NEEDED 2024 active Not Available Not Available Not Avai lable ipratropium bromide 42 mcg (0.06 %) nasal spray SPRAY TWICE IN EACH NOSTRIL THREE TIMES DAILY active Not Available Not Available No t Available losartan 100 mg tablet TAKE 1 TABLET BY MOUTH EVERY DAY 09/09 completed Not Available Not Available Not Available fluticasone propionate 50 mcg/actuati on nasal spray,suspe nsion SHAKE LIQUID AND USE 1 TO 2 SPRAYS IN EACH NOSTRIL TWICE DAILY 03/27 completed Not Available Not Available Not Available doxycycline hyclate 100 mg tablet TAKE 1 TABLET BY MOUTH EVERY 12 HOURS active Not Available Not Available No t Available ipratropium bromide 21 mcg (0.03 %) [...] Available duloxetine 60 mg capsule,del ayed release TAKE 1 CAPSULE BY MOUTH DAILY active Not Available Not Available No t Available chlorhexidi ne gluconate 0.12 % mouthwash FPD 09/17 completed Not Available Not Available Not Available EpiPen 03/27 completed Not Available Not Available Not Available Robaxin 2014 active Not Available Not Available Not Avai lable Sleep Aid (diphenhydr amine) 03/03 completed Not Available Not Available Not Available Symbicort 160 mcg-4.5 mcg/actuati on HFA [...] Not Available Not Available No t Available nitroglycer in 0.4 % (w/w) rectal ointment APPLY SMALLEST AMOUNT POSSIBLE USING EVERY TIP ONLY TO AFFECTED AREA OF TOE/FOOT. ENSURE YOU CLEAN AND REMOVE PRIOR TO NEW APPLICATI ON active Not Available Not Available No t Available TRUEplus Insulin 1 mL 30 gauge x 5/16 syringe USE TO INJECT SUBCUTANE OUSLY TWICE A WEEK active Not Available Not Available No t Available TRUEplus Insulin 0.3 mL 31 gauge x 5/16 syringe USE TO INJECT SUBCUTANE OUSLY TWICE A WEEK active Not Available Not Available No t Available Eliquis 2.5 mg tablet TAKE 1 [...] SYMPTOMS OF OPIOID EMERGENCY PERSIST, ALTERNATE NOSTRILS active Not Available Not Available No t Available Airsupra 90 mcg-80 mcg/actuati on HFA aerosol inhaler INHALE 1 TO 2 PUFFS BY MOUTH EVERY 6 HOURS NEEDED FOR DIFFICULT BREATHING OR COUGHING active Not Available Not Available No t Available Vitals Date Recorded Body mass index (BMI) Body height Oxygen saturation Oxygen saturation in Arterial blood by Pulse oximetry Heart rate Body temperature Body weight Systolic blood pressure Diastolic blood pressure Provider Name and Address Organization Details Last Updated DateTime 2 28.7 kg/m2 162.56 cm 97 % 97 % 84 /min 98.3 [degF] 75175.9 3 g 128 mm[Hg] 82 mm[Hg] Not Available [facility] 3 07:29:01 Date Recorded Body mass index (BMI) Body height Oxygen saturation Oxygen saturation in Arterial blood by Pulse oximetry Heart rate Body temperature Body weight Systolic blood pressure Diastolic blood pressure Provider Name and Address Organization Details Last Updated DateTime 3 23.7 kg/m2 162.56 cm 100 % 100 % 66 /min 97 [degF] 98743.7 5 g 122 mm[Hg] 82 mm[Hg] Not Available [facility] 3 07:29:01 Date Recorded Body height Body mass index (BMI) Body weight Heart rate Systolic blood pressure Diastolic blood pressure Provider Name and Address Organization Details Last Updated DateTime 4 162.56 cm 23.7 kg/m2 83084.7 5 g 64 /min 120 mm[Hg] 80 mm[Hg] Renaldo Penn Aylin [employer] 4 15:22:44 Date Recorded Body height Body mass index (BMI) Body weight Heart rate Oxygen saturation Oxygen saturation in Arterial blood by Pulse oximetry Systolic blood pressure Diastolic blood pressure Provider Name and Address Organization Details Last Updated DateTime 5 162.56 cm 26.8 kg/m2 04111.4 1 g 103 /min 98 % 98 % 118 mm[Hg] 72 mm[Hg] Renaldo Penn Aylin [employer] 5 12:14:09 Social History Question Answer Notes LastModified by Organizat ion Details LastModified Time Tobacco Smoking Status Never Smoker [facility] [employer] [facility] 04/09/2023 15:21:54 What Is Your Level Of Alcohol Consumption? Occasional [id number] Information not available 05/22/2022 What Is Your Level Of Caffeine Consumption? None [id number] Information not available 05/22/2022 What Type Of Diet Are You Following? REGULAR [id number] Information not available 05/22/2022 What Was The Date Of Your Most Recent Tobacco Screening? 03/27/2022 Information not available 04/09/2023 What Is Your Relationship Status? [id number] Information not available 05/22/2022 Have You Recently Traveled Abroad? No Information not available 04/09/2023 Sex: Female Functional Status None recorded. Mental Status None recorded. Family History Relationship Description Onset Age of this Age Resolved Age Notes LastModified by Organization Details LastModified Time Maternal Grandfather Diabetes mellitus [id number] Not available 05/22/2022 07:26:23 Maternal Grandmother Malignant tumor of colon [email or web address] Not available 2023 15:21:52 Medical History No medical history recorded. Gynecological HistoryNo gynecological history recorded. Obstetrics History GPAL:G 0 P 0 0 0 0 Immunizations Vaccine Type Date Status Note Provider Nam e and Address Organization Details Recorded Time Tdap 0 completed Not Available [facility] 05/22/2022 07:34:18 Influenza, split virus, quadrivalent, preservative 0 completed Not Available [facility] 05/22/2022 07:34:19 Past Encounters Encounter ID Performer Location Encounter Start Date Encounter Closed Date Diagnosis/Indication Diagnosis SNOMED-CT Code Diagnosis ICD10 Code Diagnosis Note [id number] _ATHN_MIGR ATION_1 _ATHENA_M IGRATION_ DEFAULT_1 _1 , 09/05/2021 00:00:00 09/05/2021 15:10:26 [id number] _ATHN_MIGR ATION_1 _ATHENA_M IGRATION_ DEFAULT_1 _1 , 03/27/2022 00:00:00 03/27/2022 12:19:10 [id number] Minerva Serna MD [facility] General Surgery [address] [place] [address] 04/09/2023 15:21:03 04/10/2023 10:02:05 Liver enzymes level above reference range 733276206 R74.01 [id number] Minerva Serna MD [facility] General Surgery [address] [address] 07/14/2024 12:08:06 07/14/2024 12:33:24 Rectal prolapse 18095014 K62.3 Health Concerns Section Related Observation LastModified by Organization Detai ls LastModified Time None Recorded Concern Status LastModified by Organization Details LastModified Time None Recorded Advance Directives Directive None Recorded Payers Encounter Date Sequence Insurance Name Policy Number Policy Reaves Covered Member ID Reaves Member ID Guarantor Name 04/09/2023 1 [facility] (MEDICARE REPLACEMENT/A DVANTAGE - PPO) [id number] Flor Gallego [id number] Flor Gallego 04/09/2023 2 [place] [facility] Flor Dickerson Julián [id number] Flor Dickerson Julián 07/14/2024 1 [facility] (MEDICARE REPLACEMENT/A DVANTAGE - PPO) [id number] Flor Dickerson Julián [id number] Flor Dickerson Julián 07/14/2024 2 [place] [facility] Flor Dickerson Julián [id number] Flor Dickerson Julián Notes Date Note Type Note Provider Name [...] PAIN / HEPATITIS . Minerva Serna MD [address], [place] [place] [address], [place], [address], [employer] [facility] 04/09/2023 16:07:25 07/14/2024 text/html NOAH WAS SEEN IN THE OFFICE FOR A F/U .PT IS C/O RECTAL PAIN . SHE APPARENTLY HAD A RECTAL PROLAPSE THAT WAS REDUCIBLE . THIS HAPPENED DURING DIARREHA/ SNEEZING . Minerva Serna MD [address], [address], [place], [address], [employer] 07/14/2024 13:04:38 OBGyn Episode No OBEpisode recorded.
--- OUTSIDE RECORDS SUMMARY | 2024-07-31 20:11 | XMS_ITS | CONTINUITY OF CARE DOCUMENT ---
Author Name paras maryruchi Address Unknown Organization [facility] Address [address] [place] [address] Phone [phone] Care Team Providers Care Terrazzo Worker Name Role Phone Mike AYALA, Rehana Unavailable Joe AYALA, Mary Unavailable Joe AYALA, Mary Unavailable [phone] PROBLEMS Condition Status Date Provider Notes HYPOKALEMIA active Bianca Refugio ASTHMA active Bianca Refugio SHORTNESS OF BREATH active Bianca Refugio PALPITATIONS completed - Rehana Mckeon MD HTN ESSENTIAL--echo ef 60%, 02/2021 active Agapito Araiza HYPERCHOLESTEROLEMIA completed - Rehana Mckeon MD RENAL INSUFFICIENCY ECTOPIC KIDNEY completed - Rehana Mckeon MD TOBACCO ABUSE QUIT 12 YRS AGO active Emy Lively CHEST PAIN, completed - Rehana Mckeon MD Preoperative cardiovascular examination completed - Rehana Mckeon MD Hx of bariatric surgery in 2020 active Elgin Mckeon MD Venous insufficiency active Fabiana Stern NP Cardiology examination active Agapito Araiza ENCOUNTERS Date Type Provider Location Encounter Diag nosis - In-person encounter Office Visit Rehana Campos Office Cardiology examination - In-person encounter Office Visit Rehana Mckeon MD [facility] - In-person encounter Office Visit Rehana Mckeon MD [facility] - In-person encounter Office Visit Rehana Mckeon MD [facility] - In-person encounter Office Visit Elijah Giles MD [facility] Office Venous insufficiency - In-person encounter Office Visit Rehana Mckeon MD [facility] - In-person encounter Office Visit Rehana Mckeon MD [facility] - In-person encounter Office Visit Rehana Mckeon MD [facility] HTN ESSENTIAL--echo ef 60%, 1Preoperative cardiovascular examinationHx of bariatric surgery in 2020 - In-person encounter Office Visit Rehana Mckeon MD [facility] - In-person encounter Office Visit Rehana Mckeon MD [facility] Office PALPITATIONSHYPERCHOLESTEROLEMIARENAL INSUFFICIENCY ECTOPIC KIDNEYCHEST PAIN, - In-person encounter Office Visit Rehana Mckeon MD Outing Office TOBACCO ABUSE QUIT 12 YRS AGOCHEST PAIN, VITAL SIGNS Date Observation Value Provider Body Mass Index (Ratio) 28.49 kg/m2 Elgin Mckeon MD pulse rate 61 /min Perri augustin oxygen saturation, oximetry 98 % Perri Patricia blood pressure, diastolic 76 mm[Hg] Ti renny Patricia blood pressure, systolic 114 mm[Hg] Tif mali Patricia weight E&M 166 [lb_av] Perri Srivastava s blood pressure, cuff size regular Ti renny Patricia height E&M 64 [in_i] Perri augustin Body Mass Index (Ratio) 25.57 kg/m2 Elgin Mckeon MD blood pressure, diastolic 80 mm[Hg] Tiffany nkLogic blood pressure, systolic 120 mm[Hg] Loraine kLogic blood pressure, cuff size regular Ke rri Gruenenfelder blood pressure, diastolic 80 mm[Hg] Ke rri Gruenenfelder blood pressure, systolic 120 mm[Hg] Cordelia ri Grlisanenfelder oxygen saturation, oximetry 96 % Kavya Tahiraeld respiratory rate E&M 12 /min Kavya Steel ruenenfeld pulse rate 79 /min Kavya Grann marienfe er weight E&M 149 [lb_av] Kavya Cuencanenfe [facility] height E&M 64 [in_i] Kavya Cuencanenfe [facility] blood pressure, cuff size regular [facility] blood pressure, diastolic 70 mm[Hg] [facility] blood pressure, systolic 104 mm[Hg] [facility] pulse rate 90 /min [facility] respiratory rate E&M 16 /min Shazia Linda iller oxygen saturation, oximetry 95 % [facility] Body Mass Index (Ratio) 23.51 kg/m2 [facility] weight in kilograms E&M 62.14 kg [facility] weight E&M 137 [lb_av] [facility] height E&M 64 [in_i] [facility] height in centimeters E&M 162.56 cm [facility] Body Mass Index (Ratio) 23.00 kg/m2 Elgin Mckeon MD blood pressure, cuff size regular Ke rri Gruenenfeld blood pressure, diastolic 80 mm[Hg] Ke rri Gruenenfelder blood pressure, systolic 132 mm[Hg] Cordelia ri Gruenenfelder oxygen saturation, oximetry 97 % Kavya Gruenenfelder respiratory rate E&M 12 /min Kavya G ruenenfelder pulse rate 71 /min Kavya Gruenenfe lder weight E&M 134 [lb_av] Kavya Gruenenfe lder height E&M 64 [in_i] Kavya Gruenenfe er Body Mass Index (Ratio) 23.86 kg/m2 Rich Webb blood pressure, cuff size regular Ke rri Gruenenfelder blood pressure, diastolic 72 mm[Hg] Ke rri Gruenenfelder blood pressure, systolic 122 mm[Hg] Cordelia ri Frandyuenenfelder oxygen saturation, oximetry 97 % Kavya Gruenejodeeelder respiratory rate E&M 14 /min Kavya Milvia vigilenenfelder pulse rate 74 /min Kavya Joellennenfe er weight E&M 139 [lb_av] Kavya Joellennejodeee er height E&M 64 [in_i] Kavya Tahirae er Body Mass Index (Ratio) 23.75 kg/m2 Elgin Mckeon MD blood pressure, diastolic -1 mm[Hg] Tiffany nkLogchance blood pressure, systolic 146 mm[Hg] Loraine Yatesogchance blood pressure, diastolic 78 mm[Hg] [facility] blood pressure, systolic 146 mm[Hg] Shyam Hinkle oxygen saturation, oximetry 98 % Precious Hinkle pulse rate 69 /min Precious Hinkle respiratory rate E&M 18 /min Precious felix weight E&M 138.4 [lb_av] Precious Hinkle height E&M 64 [in_i] Precious Hinkle Body Mass Index (Ratio) 28.66 kg/m2 Elgin Mckeon MD blood pressure, diastolic 59 mm[Hg] Ca therine Kyle blood pressure, systolic 121 mm[Hg] Cat herine Kyle oxygen saturation, oximetry 96 % Sharon [place] pulse rate 67 /min Sharon [place] respiratory rate E&M 14 /min Catheri ne Kyle weight E&M 167 [lb_av] Sharon Kyle blood pressure, cuff size regular Ca therine Kyle height E&M 64 [in_i] Sharon Kyle Body Mass Index (Ratio) 37.59 kg/m2 Elgin Mckeon MD blood pressure, cuff size regular Pa ris [place] blood pressure, diastolic 74 mm[Hg] Pa ris Phillip blood pressure, systolic 134 mm[Hg] Par is [place] respiratory rate E&M 21 /min Rosa H trey pulse rate 77 /min Rosa [place] oxygen saturation, oximetry 97 % Rosa [place] weight E&M 219 [lb_av] Rosa [place] height E&M 64 [in_i] Rosa [place] Body Mass Index (Ratio) 42.22 kg/m2 Elgin Mckeon MD blood pressure, diastolic 90 mm[Hg] Li nkLogic blood pressure, systolic 180 mm[Hg] Loraine kLogchance blood pressure, diastolic 90 mm[Hg] Rh onda Jackie blood pressure, systolic 180 mm[Hg] Rho nda Jackie oxygen saturation, oximetry 96 % Guadalupeyoan Mejia pulse rate 54 /min Guadalupeyoan Mejia blood pressure, cuff size regular Rh onda Jackie respiratory rate E&M 16 /min Guadalupeyoan Mejia blood pressure, resting No Rhon lucila Jackie weight E&M 246 [lb_av] Guadalupeyoan Mejia height E&M 64 [in_i] Guadalupe Mejia blood pressure, diastolic, left arm 79 mm [Hg] [facility] blood pressure, systolic, left arm 126 mm [Hg] Agustin [place] blood pressure, diastolic 79 mm[Hg] Audrey seph [place] blood pressure, systolic 126 mm[Hg] Asfa ocampo [place] pulse rate 76 /min [place] oxygen saturation, oximetry 96 % Agustin [place] respiratory rate E&M 16 /min [place] weight E&M 260 [lb_av] [facility] ALLERGIES Allergy Name Onset Date Reaction Criticality Status EPINEPHRINE High Criticality active RESULTS Date Observation Value Provider Reference Range Interpretation Location B-12, serum 1612 pg/mL LinkLogic [id number] High hemoglobin A1C, blood, as % of total hemoglobin 4.9 % [facility] 4.8-5.6 free thyroxine index 2.5 [facility] 1.2-4.9 triiodothyronine resin uptake 27 % [facility] 24-39 thyroxine, serum, total 9.4 ug/dL [facility] 4.5-12.0 thyroid stimulating hormone, serum 0.018 u[IU]/mL [facility] 0.450-4.500 Low lipoprotein, beta, serum, point, quantitative, calculated 74 mg/dL [facility] 0-99 HDL cholesterol, serum 71 mg/dL [facility] >39 triglyceride, serum, random 66 mg/dL [facility] 0-149 cholesterol, serum 158 mg/dL [facility] [phone]/12/ 29 basophil count, absolute 0.0 x10E3/uL [facility] 0.0-0.2 Eosinophil Absolute Count 0.1 X10E3/UL [facility] 0.0-0.4 monocyte count, blood, automated 0.3 X10E3/UL [facility] 0.1-0.9 lymphocyte count, blood, automated 1.3 X10E3/UL [facility] 0.7-3.1 Absolute Neutrophils 2.1 X10E3/UL [facility] 1.4-7.0 basophils as percent of blood leukocytes 1 % [facility] Not Estab. eosinophils as percent of blood leukocytes 2 % [facility] Not Estab. monocytes as percent of blood leukocytes 7 % [facility] Not Estab. lymphocytes as percent of blood leukocytes 35 % [facility] Not Estab. neutrophils as percent of blood leukocytes 55 % [facility] Not Estab. platelet count 151 X10E3/UL [facility] [phone]/12/ 29 red blood cell distribution width 12.3 % [facility] 11.7-15.4 mean corpuscular hemoglobin concentration, RBC 32.3 G/DL [facility] 31.5-35.7 mean corpuscular hemoglobin, RBC 29.8 pg [facility] 26.6-33.0 mean corpuscular volume, RBC 92 fL [facility] 79-97 hematocrit, blood 44.9 % [facility] 34.0-46.6 hemoglobin, blood 14.5 g/dL [facility] 11.1-15.9 erythrocyte (RBC) count 4.87 X10E6/UL [facility] 3.77-5.28 leukocyte count, blood 3.8 X10E3/UL [facility] 3.4-10.8 alanine aminotransferase (SGPT), serum 47 1/L [facility] 0-32 High aspartate aminotransferase (SGOT), serum 53 1/L [facility] 0-40 High alkaline phosphatase, serum 143 1/L [facility] 44-121 High bilirubin, serum, total 0.6 mg/dL [facility] 0.0-1.2 albumin/globulin ratio, serum 1.8 [facility] 1.2-2.2 globulin, serum 2.2 [facility] 1.5-4.5 albumin, serum 4.0 g/dL [facility] 3.8-4.9 protein, total, serum 6.2 g/dL [facility] 6.0-8.5 calcium, serum 9.3 mg/dL [facility] 8.7-10.3 carbon dioxide, venous blood 31 mmol/L [facility] 20-29 High chloride, serum 102 mmol/L [facility] 96-106 potassium, serum 3.0 mmol/L [facility] Low sodium, serum 147 mmol/L [facility] High urea nitrogen/creatinine ratio, serum 17 [facility] 12-28 creatinine, serum 0.60 mg/dL [facility] 0.57-1.00 urea nitrogen, blood 10 mg/dL [facility] 8-27 blood glucose, random 86 mg/dL [facility] 70-99 thyroid stimulating hormone, serum 2.500 u[IU]/mL [facility] very low density lipoproteins 36 mg/dL [facility] triglyceride, serum, fasting 178 mg/dL [facility] HDL cholesterol, serum 53 mg/dL [facility] LDL cholesterol, serum 104 mg/dL [facility] cholesterol, serum 193 mg/dL [facility] globulins, serum, total 3.0 g/dL [facility] Estimated Glomerular Filtration Rate (calc) 58 mL/min/{1 .73_m2} [facility] albumin/globulin ratio, serum 1.3 [facility] protein, total, serum 6.9 g/dL [facility] albumin, serum 3.9 g/dL [facility] bilirubin, serum, total 0.3 mg/dL [facility] alkaline phosphatase, serum 109 1/L [facility] alanine aminotransferase (SGPT), serum 22 1/L [facility] aspartate aminotransferase (SGOT), serum 18 1/L [facility] calcium, serum 9.2 mg/dL [facility] blood glucose, fasting 84 mg/dL [facility] creatinine, serum 1.02 mg/dL [facility] urea nitrogen, blood 13 mg/dL [facility] carbon dioxide, serum, total 29 mmol/L [facility] chloride, serum 101 mmol/L [facility] potassium, serum 3.4 mmol/L [facility] sodium, serum 142 mmol/L [facility] HISTORY OF MEDICATION USE Medication Status Instructions Dates Provider Indications Com ments levothyroxine 112 mcg tablet active Agapito Ahpadmazafilipe spironolactone 25 mg tablet active TAKE 1 TABLET BY MOUTH ONCE DAILY Agapito Dooleyzai losartan 50 mg tablet active TAKE 1 TABLET BY MOUTH ONCE DAILY Agapito padmazai hydrocodone-acetam inophen 10-325 mg tablet active Es Ventimikyree COMPLIANCE DIRECTOR losartan 50 mg tablet completed Take 1 tablet by mouth once a day TAKE 1 TABLET BY MOUTH EVERY DAY - Ramon spironolactone 25 mg tablet completed Take 1 tablet by mouth once a day - [facility] 100 mg tablet completed TAKE 1 TABLET BY MOUTH EVERY DAY - Nilam Godoy gabapentin 100 mg capsule active Agapito Araiza hydrocodone-acetam inophen 7.5-325 mg tablet completed TAKE 1 TABLET BY MOUTH EVERY FOUR HOURS NEEDED FOR PAIN FOR 7 DAYS - Es Darrylsilaskyree WILLS pantoprazole 40 mg tablet,delayed release (DR/EC) completed TAKE 1 TABLET BY MOUTH TWICE DAILY - Agapito Araiza ropinirole 3 mg tablet active Rehana Mckeon MD tramadol 50 mg tablet completed TAKE 1 TABLET BY MOUTH EVERY 8 HOURS NEEDED - Rehana Mckeon MD cyclobenzaprine 10 mg tablet completed TAKE 1 TABLET BY MOUTH THREE TIMES DAILY NEEDED - Rehana Mckeon MD meloxicam 15 mg tablet completed - Rehana Mckeon MD AMBEREN completed as directed - Rehana Mckeon MD MAXAIR AUTOHALER 200 MCG/INH INHALATION AEROSOL BREATH ACTIVATED completed as directed - Rehana Mckeon MD FLEXERIL 10 MG TABS completed 1 tablet by mouth three times a day - Rehana Mckeon MD ibuprofen 800 mg tablet completed 1 tablet by mouth three times a day - Rehana Mckeon MD METHOCARBAMOL 750 MG TABS completed 1 tablet by mouth four times a day - Rehana Mckeon MD RANITIDINE HCL 150 MG ORAL TABLET completed 1 tablet by mouth twice a day - Rehana Mckeon MD hydrocodone-acetam inophen 10-325 mg tablet completed 1 tablet by mouth every six hours as needed - Rehana Mckeon MD Vesicare 10 mg tablet completed 1 tablet by mouth once a day - Rehana Mckeon MD amoxicillin-pot clavulanate 875-125 mg tablet completed 1 tablet by mouth twice a day - Rehana Mckeon MD simvastatin 20 mg tablet completed 1 tablet by mouth once a day - Rehana Mckeon MD Advair Diskus 100-50 mcg/dose blister with device completed 1 puff by mouth once a day - Rehana Mckeon MD verapamil 180 mg tablet extended release completed 1 tablet by mouth once a day - Rehana Mckeon MD SOCIAL HISTORY Date Observation Value Provider drug use no Agapito Araiza alcohol use no Agapito Araiza smoking, year quit 2008 Agapito kapadia number of years as a smoker 10 years or m ore Agapito Araiza cigarette use yes Agapito Araiza smoking status Former smoker Agapito Dimas i drug use no Agapito Dimasi alcohol use no Agapito Araiza smoking, year quit 2008 Agapito kapadia number of years as a smoker 10 years or m ore Agapito Araiza cigarette use yes Agapito Araiza smoking status Former smoker Agapito Dimas i social history reviewed E&M revi ewed - no changes required Rehana Mckeon MD social history E&M Marital Statu s: Nura jorge with family/friends E thnicity: Smoking History: Orquidea flynn is a former smoker. Rehana Mckeon MD smoking, year quit 2008 Shazia herrmann cigarette use yes Shazia Herrmann smoking status Former smoker Shazia Herrmann drug use no Es Ventimig jesus manuel COMPLIANCE DIRECTOR alcohol use no Es Ventimig jesus manuel COMPLIANCE DIRECTOR physical exercise, frequency, days per week no Kavya Stephens caffeine use, averag e drinks per day yes Kavya Stephens smoking status Former smoker Kavya velazquez social history reviewed E&M revi ewed - no changes required Rehana Mckeon MD physical exercise, frequency, days per week no Kavya Stephens caffeine use, averag e drinks per day yes Kavya Floresnfeldred smoking status Former smoker Kavya Flores nfelder social history reviewed E&M revi ewed - no changes required Agapito Araiza physical exercise, frequency, days per week no Precious Manan caffeine use, averag e drinks per day yes Precious Manan smoking status Former smoker Precious Manan social history reviewed E&M revi ewed - no changes required Agapito Araiza social history E&M Marital Statu s: L jorge with family/friends E thnicity: Smoking History: Orquidea flynn is a former smoker. Agapito Araiza physical exercise, frequency, days per week no Sharon Kyle caffeine use, averag e drinks per day yes Sharon Kyle smoking status Former smoker Sharon Ot is social history reviewed E&M revi ewed - no changes required Rehana Mckeon MD physical exercise, frequency, days per week no Rosa [place] caffeine use, averag e drinks per day yes Rosa Phillip smoking status Former smoker Rosa De Jesusron social history reviewed E&M revi ewed - no changes required Agapito Araiza social history E&M Marital Statu s: L jorge with family/friends E thnicity: Smoking History: Orquidea flynn is a former smoker. Rehana Mckeon MD smoking status Former smoker Guadalupe Jackie social history reviewed E&M revi ewed - no changes required Agapito Araiza drug use none Rehana Mckeon MD social history E&M Marital Statu s: L jorge with family/friends E thnicity: Rehana Mckeon MD social history reviewed E&M reviewed Rehana Mckeon MD physical exercise, frequency, days per week no [facility] caffeine use, averag e drinks per day yes [facility] alcohol use, average drinks per day none [facility] number of years as a smoker 10 years or m ore LinkLog smoking status Quit [facility] MENTAL STATUS Date Observation Value Provider assessment of judgme nt and insight E&M Alert and oriented to time, place and person. Mood and affect are normal. Rehana Mckeon MD INSURANCE PROVIDERS Payer name Policy type / Coverage type Jeevan red libertarian ID AARP [facility] ADVANTAGE PLAN 2 (HMO-POS) Medicare [id number] [facility] Medicaid 3 [id number] ADVANCE DIRECTIVES Name Date DISCUSSED - NO DECISION MADE TREATMENT PLAN Date Name Performer [id number],S, Rehana Mckeon MD [id number],S,c urrently asymptomatic. Her updated medication list for this problem includes: Losartan 50 Mg Tablet (Losartan) ..... Take 1 tablet by mouth once a day take 1 tablet by mouth every day Spironolactone 25 Mg Tablet (Spironolactone) ..... Take 1 tablet by mouth once a day Rehana Mckeon MD [id number],B,C ut Losartan from 100mg to 50mg daily Her updated medication list for this problem includes: Losartan 50 Mg Tablet (Losartan) ..... Take 1 tablet by mouth once a day take 1 tablet by mouth every day Spironolactone 25 Mg Tablet (Spironolactone) ..... Take 1 tablet by mouth once a day Rehana Mckeon MD [id number],C,remains tobac co free Es To [facility] [id number],C,c urrently asymptomatic. H er updated medication list for this problem includes: Losartan 100 Mg Tablet (Losartan) ..... Take 1 tablet by mouth once a day take 1 tablet by mouth every day Spironolactone 25 Mg Tablet (Spironolactone) ..... Take 1 tablet by mouth once a day Esyaima Andrewsmiglmarilia MATTP [id number],C,c ontrolled. Will continue present medication regimen H er updated medication list for this problem includes: Losartan 100 Mg Tablet (Losartan) ..... Take 1 tablet by mouth once a day take 1 tablet by mouth every day Spironolactone 25 Mg Tablet (Spironolactone) ..... Take 1 tablet by mouth once a day Es To [facility] [id number],C,S he continues to have pain left foot 3rd digit with bruising and pain with ambulation. Concern is that this is related musculoskeletal injury as no venous insufficiency noted on doppler and Sensilase with microvascular disease. Have recommended ortho eval and non-weight bearing. Esyaima To [facility] [id number],C,D enies SOB H er updated medication list for this problem includes: Losartan 100 Mg Tablet (Losartan) ..... Take 1 tablet by mouth once a day take 1 tablet by mouth every day Spironolactone 25 Mg Tablet (Spironolactone) ..... Take 1 tablet by mouth once a day Fabiana Nalluri [id number],C,B P controleld well B P today: 122/72 P rior BP: 146/-1 (03/13/2022) Labs Reviewed: C reat: 0.60 (03/21/2022) C hol: 158 (03/21/2022) HDL: 71 (03/21/2022) & #13;Her updated medication list for this problem includes: Losartan 100 Mg Tablet (Losartan) ..... Take 1 tablet by mouth once a day take 1 tablet by mouth every day Spironolactone 25 Mg Tablet (Spironolactone) ..... Take 1 tablet by mouth once a day Fabiana Nalluri CAGE MAKER [id number],C, Fabiana Nalluri CAGE MAKER [id number],C,C /o pain in left middle toe pain/cheange into purple color. She had MRI done whish shwed joint fusion. No evidence of osteomelitis or fracture. O rders: V enous Doppler Bilateral LE - Reflux ([id number]) Fabiana Leoneri CAGE MAKER [id number],S, Agapito Ahmedza i [id number],S, Agapito Ahmedza i [id number],S, Agapito Ahmedza i [id number],S, Agapito Ahmedza i [id number],W, Agapito Ahmedza i [id number],S, Agapito Ahmedza i [id number],S, Agapito Ahmedza i [id number],S, Agapito Ahmedza i [id number],S, Agapito Ahmedza i [id number],S, Agapito Ahmedza i [id number],S, Agapito Ahmedza i [id number],B, Agapito Ahmedza i [id number],S, Agapito Ahmedza i [id number],B, Agapito Ahmedza i [id number],B, Agapito Ahmedza i [id number],S, Agapito Ahmedza i Cardiology Rehana Mckeon MD Cardiology Rehana Mckeon MD Cardiology:This visi t has been a part of the consistent, comprehensive, and ongoing management of the chronic medical condition(s) listed above for the patient. BP today: 114/76 P rior BP: 120/80 (07/15/2023) Labs Reviewed: C reat: 0.60 (03/21/2022) C hol: 158 (03/21/2022) HDL: 71 (03/21/2022) LDL: 74 (03/21/2022) T (03/21/2022) Her updated medication list for this problem includes: Spironolactone 25 Mg Tablet (Spironolactone) ..... Take 1 tablet by mouth once daily Losartan 50 Mg Tablet (Losartan) ..... Take 1 tablet by mouth once daily Rehana Mckeon MD Cardiology: H er updated medication list for this problem includes: Spironolactone 25 Mg Tablet (Spironolactone) ..... Take 1 tablet by mouth once daily Losartan 50 Mg Tablet (Losartan) ..... Take 1 tablet by mouth once daily Rehana Mckeon MD Cardiology Agapito Araiza Cardiology: H er updated medication list for this problem includes: Spironolactone 25 Mg Tablet (Spironolactone) ..... Take 1 tablet by mouth once daily Losartan 100 Mg Tablet (Losartan) ..... Take 1 tablet by mouth once daily Agapito Araiza Cardiology Agapito Araiza Cardiology: H er updated medication list for this problem includes: Spironolactone 25 Mg Tablet (Spironolactone) ..... Take 1 tablet by mouth once daily Losartan 100 Mg Tablet (Losartan) ..... Take 1 tablet by mouth once daily BP today: 120/80 P rior BP: 104/70 (01/14/2023) Labs Reviewed: C reat: 0.60 (03/21/2022) C hol: 158 (03/21/2022) HDL: 71 (03/21/2022) LDL: 74 (03/21/2022) T (03/21/2022) Agapito Araiza Cardiology Agapito Araiza Cardiology Rehana Mckeon MD Cardiology:currently asymptomatic. Her updated medication list for this problem includes: Losartan 50 Mg Tablet (Losartan) ..... Take 1 tablet by mouth once a day take 1 tablet by mouth every day Spironolactone 25 Mg Tablet (Spironolactone) ..... Take 1 tablet by mouth once a day Rehana Mckeon MD Cardiology:Cut Jewels bellamy from 100mg to 50mg daily Her updated medication list for this problem includes: Losartan 50 Mg Tablet (Losartan) ..... Take 1 tablet by mouth once a day take 1 tablet by mouth every day Spironolactone 25 Mg Tablet (Spironolactone) ..... Take 1 tablet by mouth once a day Rehana Mckeon MD Cardiology:remains tobacco [facility] Cardiology:currently asymptomatic. H er updated medication list for this problem includes: Losartan 100 Mg Tablet (Losartan) ..... Take 1 tablet by mouth once a day take 1 tablet by mouth every day Spironolactone 25 Mg Tablet (Spironolactone) ..... Take 1 tablet by mouth once a day [facility] Cardiology:controlle d. Will continue present medication regimen H er updated medication list for this problem includes: Losartan 100 Mg Tablet (Losartan) ..... Take 1 tablet by mouth once a day take 1 tablet by mouth every day Spironolactone 25 Mg Tablet (Spironolactone) ..... Take 1 tablet by mouth once a day [facility] Cardiology:She alexia nues to have pain left foot 3rd digit with bruising and pain with ambulation. Concern is that this is related musculoskeletal injury as no venous insufficiency noted on doppler and Sensilase with microvascular disease. Have recommended ortho eval and non-weight bearing. [place] Yousuf [facility] Cardiology:Denies SO B H er updated medication list for this problem includes: Losartan 100 Mg Tablet (Losartan) ..... Take 1 tablet by mouth once a day take 1 tablet by mouth every day Spironolactone 25 Mg Tablet (Spironolactone) ..... Take 1 tablet by mouth once a day Fabiana Stern NP Cardiology:BP contro leld well B P today: 122/72 P rior BP: 146/-1 (03/13/2022) Labs Reviewed: C reat: 0.60 (03/21/2022) C hol: 158 (03/21/2022) HDL: 71 (03/21/2022) Her updated medication list for this problem includes: Losartan 100 Mg Tablet (Losartan) ..... Take 1 tablet by mouth once a day take 1 tablet by mouth every day Spironolactone 25 Mg Tablet (Spironolactone) ..... Take 1 tablet by mouth once a day Fabiana Nalluri CAGE MAKER Cardiology Fabiana Nalluri CAGE MAKER Cardiology:C/o pain in left middle toe pain/cheange into purple color. She had MRI done whish shwed joint fusion. No evidence of osteomelitis or fracture. O rders: V enous Doppler Bilateral LE - Reflux ([id number]) Fabiana Nalluri CAGE MAKER Telehealth Agapito Ahmedzai Telehealth Agapito Ahmedzai Telehealth Agapito Ahmedzai Telehealth Agapito Ahmedzai Cardiology Agapito Ahmedzai Cardiology Agapito Ahmedzai Cardiology Agapito Ahmedzai Cardiology Agapito Ahmedzai Cardiology Agapito Ahmedzai Cardiology Agapito Ahmedzai Cardiology Agapito Ahmedzai Cardiology Agapito Ahmedzai Cardiology Agapito Ahmedzai Cardiology Agapito Ahmedzai Cardiology Agapito Ahmedzai Cardiology Agapito Ahmedzai Palpitations, HTN, H yperlipidemia, renal insuff: H er updated medication list for this problem includes: Verapamil Hcl Cr 180 Mg Cr-tabs (Verapamil hcl) ..... 1 tablet by mouth daily Rehana Mckeon MD Palpitations, HTN, H yperlipidemia, renal insuff: H er updated medication list for this problem includes: Verapamil Hcl Cr 180 Mg Cr-tabs (Verapamil hcl) ..... 1 tablet by mouth daily BP today: 126/79 Prior BP: / () C HOL: 193 (06/30/2009) LDL: 104 (06/30/2009) HDL: 53 (06/30/2009) T (06/30/2009) B UN: 13 (06/30/2009) Creat: 1.02 (06/30/2009) Glucose: 84 (06/30/2009) Na+: 142 (06/30/2009) K+: 3.4 (06/30/2009) Cl: 101 (06/30/2009) TSH: 2.500 (06/30/2009) Rehana Mckeon MD Date Name Complete Echo Venous Doppler Bilat eral LE - Reflux Venous Doppler Bilat eral LE - Reflux Arterial - SENSILASE Arterial Duplex Bi-L ower EX Vitamin D, 25-Hydrox y VITAMIN B12/FOLATE, SERUM PANEL CBC (INCLUDES DIFF/P LT) TSH, free T4, total T3 HEMOGLOBIN A1c LIPID PANEL COMPREHENSIVE METABO LIC PANEL, W/EGFR Renal Artery Duplex Complete Echo Stress Test - Adenos ine Complete Echo HISTORY OF PROCEDURES Procedure Date Procedure Name Provider Procedu [id number]|2024-07-31 20:11:00|2024-07-31 20:10:00|XMS_ITS|CARRILLO MAHAJAN|External Medical Summaries|[id number]|" Clinical Summary Created on: July 31, 2024 Jean Paul Lozano : 1960 Sex: Female Author Organization [facility] Address [address] [place] [address] Care Team Providers Care Terrazzo Worker Name Role Phone Slick Quispe MD Primary Care Provider Source Comments [facility],non-owned Affiliates and Associated Physician Practices is amultiple site organization consisting of ambulatory clinics and hospital sitesin [place]. This disclosure is being madepursuant to the Care Everywhere program and may not contain all information available regarding this patient. Last updated 17.[facility] Allergies Active Allergy Reactions Criticality Noted Date Comments Ymkvrplp-Kzedsjjfob-Djcwoud in Rash Medium 05/27/2024 Severity depends on length of time on skin Skin Adhesives Rash Medium 05/27/2024 Specifically Bandaids-Severity depends on length of time wearing Medications * Be aware that medications may not be up to date on this document. Alwaysverify current medications with the patient. albuterol (PROVENTIL;VENT FERNANDO) (2.5 MG/3ML) 0.083% nebulizer solution albuterol sulfate 2.5 mg/3 mL (0.083 %) solution for nebulization USE 2 VIALS IN NEBULIZER Q 6 H UTD Activ e Thiamine HCl (B-1 PO) Take 100 mg by mouth once daily Active Multiple Vitamins-Minera ls (BARIATRIC MULTIVITAMINS/I JESS PO) Take by mouth once daily Active CALCIUM CITRATE PO Take by mouth once daily Active Nutritional Supplements (EQUATE PO) Take 50 mg by mouth once daily Active losartan (Cozaar) 25 MG tablet Take 1 (one) tablet by mouth once daily Activ e rOPINIRole (Requip) 3 MG tablet Take 1 (one) tablet by mouth at bedtime Activ e azelastine (Astelin) 0.1 % nasal spray azelastine 137 mcg (0.1 %) nasal spray aerosol USE 1 SPRAY IN EACH NOSTRIL EVERY 12 HOURS Active budesonide (Pulmicort) 1 MG/2ML nebulizer suspension Active budesonide-form oterol (Symbicort) 160-4.5 MCG/ACT inhaler Active potassium chloride ER (Klor-Con M) 20 MEQ tablet Take 2 (two) tablets by mouth as needed 08/29/19 21 Active pantoprazole EC (Protonix) 40 MG tablet 07/20/19 22 Active omeprazole (PriLOSEC) 40 MG capsule omeprazole 40 mg capsule,delayed release TAKE 1 CAPSULE BY MOUTH EVERY DAY BEFORE BREAKFAST Active naloxone HCl (Narcan) 4 MG/0.1ML nasal spray CALL 911. SPR CONTENTS OF ONE SPRAYER (0.1ML) INTO ONE NOSTRIL. REPEAT IN 2-3 MIN IF SYMPTOMS OF OPIOID EMERGENCY PERSIST, ALTERNATE NOSTRILS 06/26/19 22 Active estradiol (Estrace) 0.1 MG/GM vaginal cream Active DULoxetine (Cymbalta) 60 MG capsule 1 (one) capsule once daily Active cyclobenzaprine (Flexeril) 10 MG tablet cyclobenzaprine 10 mg tablet Active gabapentin (Neurontin) 100 MG capsule Take 1 (one) capsule by mouth 2 times daily 10/31/19 22 Active HYDROcodone-aneta taminophen (Zaleski) 10-325 MG tablet Take 1 (one) tablet by mouth every 6 hours as needed for Pain Active acetaminophen (Tylenol) 325 MG tablet Take 2 (two) tablets by mouth every 6 hours as needed for Fever or Pain Maximum allowable Acetaminophen amount = 4 Grams (4000 mg) / 24 hours. 0 12/28/19 22 Active Additional Information Patient not taking.Reported on 03/11/2024 sertraline (Zoloft) 25 MG tablet Take 1 (one) tablet by mouth every morning Active rOPINIRole (Requip) 1 MG tablet Take 1 (one) tablet by mouth once daily Activ e albuterol HFA (Proventil; Ventolin; Proair) 108 (90 Base) MCG/ACT inhaler Inhale 2 (two) puffs by mouth every 6 hours as needed Active Active Problems Problem Noted Date Diagnosed [...] Encounters Date Type Department Care Team Description 05/31/2024 1:00 PM CDT Anesthesia Event [facility] Op [address] [address] Tai Carr MD 05/31/2024 12:50 PM CDT - 05/31/2024 2:40 PM CDT Surgery [facility] Op [address] [address] Zay Peraza DPM REMOVAL OF NEUROMA OF FOOT 2ND INTERSPACE//RESECTION OF DORSAL EXOSTOSIS FOOT, FAT PAD AUGMENTATION WITH ACELLULAR ALLOGRAFT OF FOOT 05/31/2024 10:27 AM CDT - 05/31/2024 4:02 PM CDT Hospital Encounter [facility] Op [address] [address] Zay Peraza DPM Surgery General Discharge Disposition: Home or Self Care 05/31/2024 Travel 05/27/2024 Travel from Last 3 Months Social History Tobacco Use Types Packs/Day Years Used Date Smoking Tobacco: Former Cigarettes 1.5 52.9 S tarted: 08/28/1971 Smokeless Tobacco: Never Alcohol Use Standard Drinks/Week Comments Never 0 (1 standard drink = 0.6 oz pur e alcohol) AUDIT-C Answer Date Recorded Q1: How often do you have a drink containing alcohol? Never 05/31/2024 Q2: How many drinks containi ng alcohol do you have on a typical day when you are drinking? Patient does not drink Q3: How often do you have si x or more drinks on one occasion? Never 05/31/2024 Comments No Sex and Gender Information Value Date Recorded Sex Assigned at Female 05/20/2022 6:45 PM YARN WINDER Legal Sex Female 7:40 AM YARN WINDER Gender Identity Female 05/20/2022 6:45 PM YARN WINDER Sexual Orientation Straight 05/20/2022 6: 45 PM YARN WINDER Last Filed Vital Signs Vital Sign Reading Time Taken Comments Blood Pressure 122/86 05/31/2024 3:39 PM CDT Pulse 52 05/31/2024 3:30 PM CDT Temperature 36.5 C (97.7 F) 05/31/2024 3:39 PM CDT Respiratory Rate 10 05/31/2024 3:30 PM CDT Oxygen Saturation 94% 05/31/2024 3:30 PM CDT Inhaled Oxygen Concentration - - Weight 77.6 kg (171 lb) 05/31/2024 10:55 AM CDT Height 162.6 cm (5' 4 ) 05/31/2024 10:55 AM CDT Body Mass Index 29.35 05/31/2024 10:55 AM CDT Plan of Treatment Health Maintenance Due Date Last Done Comments COLOGUARD (AGES 45-75) - COLON CA SCREENING [address] COLONOGRAPHY - COLON CA SCREENING 1960 FIT - COLON CA SCREENING 1960 [...] 1-dose series) 2021 COVID-19 VACCINE (3 - season) 2023 09/09/2020, 08/19/2020 DEPRESSION SCREENING 03/24/2024 MEDICARE AWV CALENDAR YEAR 2024 MAMMOGRAM 06/18/2024 06/18/2022 INFLUENZA VACCINE (Season Ended) 2024 05/13/2023, 05/01/2022, 01/24/2021, Additional history exists COLONOSCOPY - COLON CA SCREENING 09/18/2026 09/18/2016 Colorectal Cancer Screening 09/18/2026 HEPATITIS B VACCINE Aged Out No longe r eligible based on patient's age to complete this topic HIB VACCINE Aged Out No longer eligi ble based on patient's age to complete this topic HPV VACCINE Aged Out No longer eligi ble based on patient's age to complete this topic MENINGOCOCCAL (Group B) VACCINE SHARED DECISION-MAKING Aged Out No longer eligible based on patient's age to complete this topic MENINGOCOCCAL GROUPS A/C/Y/W VACCINE Aged Out No longer eligible based on patient's age to complete this topic Medical Devices Implanted Type Area Grass Farm Laborer Device Identifier Shelf Expiration Date Model / Serial / Lot Graft Jacket Now Thick Implanted:Qty: 1 on 05/31/2024 by Zay Peraza DPM at [facility] Left: Asterisk 10/10/2024 [id number] / / [id number] Viaflow Placental Tissue Matrix Implanted:Qty: 1 on 05/31/2024 by Zay Peraza DPM at [facility] Left: [employer] 05/07/2028 [id number] / / Procedures Procedure Name Priority Date/Time Associated Diagnosis Comments PATHOLOGY TISSUE EXAM (STL) Routine 05/31/2024 1:56 PM CDT Diagnosis unknown AK EXCIS INTERDIGITAL NEUROMA,EA 05/31/2024 12:51 PM CDT Special Needs 60 MINS, NARAYAN GRAFT JACKET ROSALIA GIL CONFIRMED [phone] 05/26 LR MAMMOGRAM 06/18/2022 from Last 3 Months or Most Recently Relevant to Health Maintenance Results * PATHOLOGY TISSUE EXAM (STL) (05/31/2024 1:56 PM CDT) Case Report Surgical Pathology Report Case: [id number] Authorizing Provider: Zay Peraza DPM Collected: 05/31/2024 01:56 PM Ordering Location: [facility] Received: 06/01/2024 09:42 AM [facility] Pathologist: Kiarra Coello MD Specimen: Neuroma 06/02/2024 10:20 AM CDT [facility] Final Diagnosis Neuroma, left foot, excision: Consistent with neuroma. 06/02/2024 10:20 AM T [facility] Gross Description Received in formalin labeled with the patient's name and neuroma left are 2 bellamy tissue fragments, 0.5 x 0.3 x 0.2 cm in aggregate. The specimen is filtered and entirely submitted in A1. 06/02/2024 10:20 AM T [facility] Disclaimer All histochemical and/or immunohistochemical results are interpreted with controls that demonstrate appropriate staining reactions before reporting results. Note on use of immunocytochemistry reagents: This test was developed and its performance characteristic determined by [facility], Department of Laboratory Medicine. It has not been cleared or approved by the U.S. Food and Drug Administration (FDA). The FDA has determined that such clearance or approval is not necessary. The test is used for clinical purpose. It should not be regarded as investigational or for research. This laboratory is certified to perform high complexity testing. The performance characteristics of the IHC/ROSE assays have been validated on formalin-fixed paraffin embedded tissues only. The assays have not been validated on decalcified tissues. Results should be interpreted with caution. 06/02/2024 10:20 AM CDT [facility] Embedded Images 06/02/2024 10:20 AM T [facility] Pathology/Cytolo gy NEUROMA / Unknown 05/31/2024 1:56 PM CDT 06/01/2024 9:42 AM CDT Zay Peraza DPM LAB - PATHOLOGY/CYTOLOGY O RDERABLES Final Result [facility] [address] [id number] * MAMMOGRAM (06/18/2022) Anatomical Region Laterality Modality Other 06/18/2022 Narrative 06/18/2022 Ordered by an unspecified provider. us Scanned Document SCANNING ONLY Final Result from Last 3 Months or Most Recently Relevant to Health Maintenance Insurance MEDICAID - OUT OF STATE [facility] MANAGED MEDICARE ADV MEDICARE [facility] MANAGED MEDICARE FORMERLY [facility] MEDICAID - [place] Care Teams Terrazzo Worker Relationship Specialty Start Date End Date Slick Quispe MD [address] [place] [address] PCP - General 08/02/21 "
--- OUTSIDE RECORDS SUMMARY | 2024-07-31 20:11 | XMS_ITS | Encounter Summary ---
Author Organization [facility] Address [address] [place] [address] Phone Care Team Providers Care Public Safety Officer Name Role Phone Mary Diaz MD Primary Care Provider [phone] Reason for Referral * Radiology Services (Routine) - Closed Specialty Diagnoses / Procedures Referred By Victor Hugo nobles Referred To Contact Radiology Diagnoses Metatarsalgia Hammertoe of left foot Pre-op testing Procedures EKG 12 LEAD Yamilex Beyer DPM Phone: tel: fax: Referral ID Status Reason Start Date Expiration Date Visits Re quested Visits Authorized [id number] Closed 10/30/2022 1 1 Encounter Details Date Type Department Care Team (Latest Contact Info) Description 10/30/2022 Transcribe Orders [facility] Preop/Pacu II [address] [place] [address] Yamilex Beyer DPM [address] [place] [address] Metatarsalgia (Primary Dx); Hammertoe of left foot; Pre-op testing Social History Tobacco Use Types Packs/Day Years Used Date Smoking Tobacco: Former Cigarettes 3 37 Smokeless Tobacco: Never Alcohol Use Standard Drinks/Week Comments No 0 (1 standard drink = 0.6 oz pur e alcohol) Comments No Sex and Gender Information Value Date Recorded Sex Assigned at Female 05/07/2023 5:26 AM SCOURING MACHINE OPERATOR Legal Sex Female 12:08 AM CDT Gender Identity Female 05/07/2023 5:26 AM SCOURING MACHINE OPERATOR Sexual Orientation Straight 05/07/2023 5: 26 AM SCOURING MACHINE OPERATOR 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 Not on file [...] QTC CALCULATION 440 ms EXTERNAL EKG P [place] 2 degrees EXTERNAL EKG R [place] 79 degrees EXTERNAL EKG T [place] 75 degrees EXTERNAL EKG 11/11/2022 2:45 PM CDT Impressions EXTERNAL EKG - 11/14/2022 1:12 PM CDT Normal sinus rhythm Normal ECG No previous ECGs available Confirmed by Freddy Beaulieu ([id number]) on 11/14/2022 1:12:12 PM Narrative Procedure Note Freddy Witt MD - 11/14/2022 IMPRESSION: Normal sinus rhythm Normal ECG No previous ECGs available Confirmed by Freddy Beaulieu ([id number]) on 11/14/2022 1:12:12 PM us Yamilex Beyer DPM IMG ECG ORDERABLES Final Res ult EXTERNAL EKG * (ABNORMAL) BASIC METABOLIC PANEL W/ CALCIUM TOTAL (11/11/2022 2:39 PM CDT) SODIUM 145 136 - 145 mmol/L 11/11/2022 5:08 PM CDT [facility] POTASSIUM 2.9(L) 3.5 - 5.1 mmol/L 11/11/2022 5:08 PM CDT [facility] CHLORIDE 103 98 - 107 mmol/L 11/11/2022 5:08 PM CDT [facility] CO2, VENOUS 30 22 - 30 mmol/L 11/11/2022 5:08 PM CDT [facility] ANION GAP 14.9 <18.0 mmol/L 11/11/2022 5:08 PM CDT [facility] GLUCOSE 77 70 - 99 mg/dL 11/11/2022 5:08 PM CDT [facility] BUN 9(L) 10 - 20 mg/dL 11/11/2022 5:08 PM CDT [facility] CREATININE, BLOOD 0.68 0.60 - 1.00 mg/dL 11/11/2022 5:08 PM CDT [facility] BUN/CREATININE RATIO 13 12 - 20 ratio 11/11/2022 5:08 PM CDT [facility] CALCIUM 9.1 8.7 - 10.5 mg/dL 11/11/2022 5:08 PM CDT [facility] IS THE PATIENT REQUIRED TO BE FASTING? No 11/11/2022 5:08 PM CDT [facility] GFR, ESTIMATED >60 >=60 11/11/2022 5:08 PM T [facility] Comment: Creatinine Clearance is the preferred criteria for selecting drug dose adjustments in renally impaired patients. The GFR is provided as additional pertinent clinical information. GFR is reported in mL/min/1.73 sq m. Calculation based on the Chronic Kidney Disease Epidemiology Collaboration (CKD- EPI) equation refit without adjustment for race. GFR, EST. >60 >=60 023 5:08 PM CDT [facility] GFR, EST. NONAFRICAN >60 >=60 11/11/2022 5:08 PM CDT [facility] Blood Venipuncture / Unknown 11/11/2022 2:39 PM CDT 11/11/2022 4:38 PM CDT us Yamilex Beyer DPM CHEMISTRY ORDERABLES Final R esult [facility] [address] [place] [address] documented in this encounter Visit Diagnoses Diagnosis Metatarsalgia- Primary Enthesopathy of ankle and tarsus, unspecified Hammertoe of left foot Pre-op testing Preoperative examination, unspecified Metatarsalgia Enthesopathy of ankle and tarsus, unspecified Hammertoe of left foot Pre-op testing Preoperative examination, unspecified documented in this encounter Care Teams Public Safety Officer Relationship Specialty Start Date End Date Mary Diaz MD [address] [place] [address] DR VARMA [address] [place] [address] PCP - General Family Medicine 06/30/22 documented as of this encounter
--- OUTSIDE RECORDS SUMMARY | 2024-07-31 20:11 | XMS_ITS | Encounter Summary ---
Author Organization [facility] Address [address] [facility] [address] Phone Care Team Providers Care Caramel Candy Maker Helper Name Role Phone Mary Diaz MD Primary Care Provider [phone] Encounter Details Date Type Department Care Team (Latest Contact Info) Description 05/13/2023 Transcribe Orders [facility] Preop/Pacu II [address] [place] [address] Yamilex Beyer, DPM [address] [place] [address] Pre-op testing (Primary Dx) Social History Tobacco Use Types Packs/Day Years Used Date Smoking Tobacco: Former Cigarettes 3 37 1 972 - 2009 Smokeless Tobacco: Never Alcohol Use Standard Drinks/Week Comments No 0 (1 standard drink = 0.6 oz pur e alcohol) Comments No Sex and Gender Information Value Date Recorded Sex Assigned at Female 05/07/2023 5:26 AM CYBER CRIME INVESTIGATOR Legal Sex Female 12:08 AM CDT Gender Identity Female 05/07/2023 5:26 AM CYBER CRIME INVESTIGATOR Sexual Orientation Straight 05/07/2023 5: 26 AM CYBER CRIME INVESTIGATOR 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 Not on file Not on file documented as of this encounter Plan of Treatment Not on file documented as of this encounter Results * (ABNORMAL) BASIC METABOLIC PANEL W/ CALCIUM TOTAL (05/14/2023 1:28 PM CYBER CRIME INVESTIGATOR) SODIUM 143 136 - 145 mmol/L 05/14/2023 3:05 PM [facility] POTASSIUM 2.9(L) 3.5 - 5.1 mmol/L 05/14/2023 3:05 PM [facility] CHLORIDE 103 98 - 107 mmol/L 05/14/2023 3:05 PM [facility] CO2, VENOUS 31(H) 22 - 30 mmol/L 05/14/2023 3:05 PM [facility] ANION GAP 11.9 <18.0 mmol/L 05/14/2023 3:05 PM [facility] GLUCOSE 79 70 - 99 mg/dL 05/14/2023 3:05 PM [facility] BUN 11 10 - 20 mg/dL 05/14/2023 3:05 PM [facility] CREATININE, BLOOD 0.61 0.60 - 1.00 mg/dL 05/14/2023 3:05 PM [facility] BUN/CREATININE RATIO 18 12 - 20 ratio 05/14/2023 3:05 PM [facility] CALCIUM 8.6(L) 8.7 - 10.5 mg/dL 05/14/2023 3:05 PM [facility] IS THE PATIENT REQUIRED TO BE FASTING? No 05/14/2023 3:05 PM [facility] GFR, ESTIMATED >60 >=60 05/14/2023 3:05 PM [facility] Comment: Creatinine Clearance is the preferred criteria for selecting drug dose adjustments in renally impaired patients. The GFR is provided as additional pertinent clinical information. GFR is reported in mL/min/1.73 sq m. Calculation based on the Chronic Kidney Disease Epidemiology Collaboration (CKD- EPI) equation refit without adjustment for race. GFR, EST. >60 >=60 024 3:05 PM [facility] GFR, EST. NONAFRICAN >60 >=60 05/14/2023 3:05 PM CYBER CRIME INVESTIGATOR [facility] Blood Venipuncture / Unknown 05/14/2023 1:28 PM CYBER CRIME INVESTIGATOR 05/14/2023 2:37 PM CYBER CRIME INVESTIGATOR us Yamilex Beyer DPM CHEMISTRY ORDERABLES Final R esult [facility] [address] [place] [address] documented in this encounter Visit Diagnoses Diagnosis Pre-op testing- Primary Preoperative examination, unspecified documented in this encounter Care Teams Caramel Candy Maker Helper Relationship Specialty Start Date End Date Mary Diaz MD [address] [place] [address] [place] [address] PCP - General Family Medicine 06/30/22 documented as of this encounter
--- OUTSIDE RECORDS SUMMARY | 2024-07-31 20:11 | XMS_ITS | Clinical Summary ---
Author Organization [facility] Address [address] [place] [address] Care Team Providers Care Porcelain Buildup Assistant Name Role Phone Mary Diaz MD Primary [...] Screening with HPV 09/17/1991 Mammogram Screening 2001 Pneumococcal Vaccine: 50+ Years (1 of 1 - PCV) 09/17/2011 COVID-19 Vaccine ( season) 2023 05/01/2022, 03/30/2021, 09/09/2020, Additional history exists DTaP, Tdap and Td Vaccines (2 - [...] age to complete this topic Insurance [place] [address] [facility] Care Teams Porcelain Buildup Assistant Relationship Specialty Start Date End Date Mary Diaz MD [address] [place] [address] PCP - General SPORTS MEDICINE 06/20/22
[2024-07-31 20:12] LABS: Basophils Percent Auto 0.6 % (0.2-1.2); Eosinophils Percent Auto 0.6 % (0-4.4); Hematocrit 42.7 % (37.0-47.0); Hemoglobin 13.5 g/dL (12.0-15.0); Immature Granulocyte Absolute 0.01 K/mm3 (0.00-0.031); Immature Granulocyte Percent A 0.2 % (0-0.5); Immature Platelet Fraction Pct 3.2 % (0.9-11.2); Lymphocytes Absolute Auto 0.76 K/mm3 (0.9-3.2); Lymphocytes Percent Auto 16.4 % (18.3-44.2); Mean Corpuscular HGB Conc 31.6 g/dl (32-36); Mean Corpuscular Hemoglobin 29.5 pg (26-34); Mean Corpuscular Volume 93.4 fl (80-100); Mean Platelet Volume 10.4 fl (7.4-10.4); Monocytes Absolute Auto 0.3 K/mm3 (0.1-0.6); Monocytes Percent Auto 7.1 % (2.6-8.5); Neutrophils Absolute Auto 3.5 K/mm3 (1.3-6.7); Neutrophils Percent Auto 75.1 % (45.5-73.1); Platelet Count Result 118 k/mm3 (150-375); Red Blood Count 4.57 M/mm3 (4.2-5.4); White Blood Count 4.6 K/mm3 (4.5-10.0)
[2024-07-31 20:18] LABS: Acetaminophen 71 ug/mL (10-30); Ethanol < 10 mg/dL (<10); Lactic Acid Reflex 1.1 mmol/L (0.7-2.0); Salicylate < 1.0 mg/dL (2-20)
[2024-07-31 20:19] LABS: Fractional Inspired Oxygen 21 %; HCO3 VBG 28.2 mEq/l (24.0-30.0); PCO2 VBG 44.8 mmHg (42.0-48.0); PO2 VBG 42.1 mmHg (35.0-45.0)
[2024-07-31 20:21] LABS: Device ROOM AIR; pH VBG 7.417 (7.300-7.400)
[2024-07-31 20:23] LABS: Partial Thromboplastin Time 27.7 Seconds (22.3-36.8)
[2024-07-31 20:24] LABS: Add Urine Microscopic? YES; Appearance Urine Clear (Clear); Bacteria Urine None Seen /hpf; Bilirubin Urine Negative (Negative); Blood Urine Negative (Negative); Color Urine Yellow (Yellow); Glucose Urine UA Negative (Negative); Ketones Urine Trace mg/dL (Negative); Leukocyte Esterase Ur Trace LEU/UL (Negative); Mucus Urine Present /lpf; Need Manual Microscopic Reviewed; Nitrate Urine Negative (Negative); Protein Urine Trace mg/dL (Negative); Squamous Epithelial Cell Urine Few /hpf (Few)
[2024-07-31 20:26] LABS: Alanine Aminotransferase 58 U/L (6-35); Albumin Level 3.7 g/dL (3.5-5.1); Alkaline Phosphatase 132 U/L (38-126); Anion Gap 7 mmol/L (4-12); Aspartate Amino Transferase 61 U/L (14-36); Bilirubin,Total 0.8 mg/dL (0.2-1.3); Blood Urea Nitrogen 11 mg/dL (7-17); Calcium 8.1 mg/dL (8.4-10.2); Carbon Dioxide 29 mmol/L (22-30); Chloride 105 mmol/L (98-107); Creatine Kinase 127 U/L (30-135); Estimated CRCL calculation 74 ml/min; Estimated Glomerular Filt Rate > 60; Glucose 120 mg/dL (65-110); Lipase 75 U/L (23-300); Phosphorus 3.4 mg/dL (2.5-4.5); Potassium 2.4 mmol/L (3.4-5.0); Sodium 141 mmol/L (137-145)
[2024-07-31 20:28] LABS: Amphetamine Screen Urine Negative (Negative); Barbiturate Screen Urine Negative (Negative); Benzodiazepines Screen Urine Negative (Negative); Cannabinoid Screen Urine Positive (Negative); Cocaine Screen Urine Negative (Negative); Methadone Screen Urine Negative (Negative); Opiate Screen Urine Positive (Negative); Phencyclidine Screen Urine Negative (Negative)
[2024-07-31 20:34] LABS: Troponin I < 0.012 ng/mL (0.000-0.034)
[2024-07-31 20:41] LABS: INR 1.2; Prothrombin Time 15.2 Seconds (11.1-14.7)
[2024-07-31 20:45] LABS: Influenza A QL RT-PCR Negative (Negative); Influenza B QL RT-PCR Negative (Negative); RSV RNA, RT-PCR Negative (Negative); SARS-CoV-2 RNA PCR Negative (Negative)
[2024-07-31] MEDS: POTASSIUM CHLORIDE 20 MEQ ER TABLET 40 MEQ PO (21:02)
[2024-07-31] MEDS: POTASSIUM CHLORIDE INJ 40 MEQ in SODIUM CHLORIDE 0.9% IV 500 ML 130 MEQ IVPB (21:02)
--- NOTE | 2024-07-31 21:09 | PC.NURSE ---
patient states she vomited her potassium pills back up .
--- NOTE | 2024-07-31 21:30 | ED.GENADULT ---
HPI - General Adult General Chief complaint: Overdose Stated complaint: overdose, SI History of Present Illness HPI narrative: This is a 63-year-old female with no history of psychiatric illness or suicide attempts a suicide attempt via hydrocodone. Patient took a handful of Vicodin/10/325 1 hour prior to arrival. She then went to a bar try to obtain alcohol so she could vomit up the pills. They called the police and she was brought to the hospital for evaluation. Patient currently denies SI HI. She says she attempted to commit suicide because her has been involved in an online affair with the [employer] account of an [employer] actress. Patient has never attempted suicide in the past. She has no history of psychiatric illness. Both patient and admitted if had significant marital strife lately. Patient has no complaints this time. Related Data Home Medications Medication Instructions Recorded Confirmed Last Taken Type calcium citrate 200 mg PO DAILY 09/26/20 11/03/23 Unknown History cyclobenzaprine 10 mg tablet 10 mg PO .qd 09/07/21 11/03/23 Unknown History spironolactone 25 mg tablet 25 mg PO DAILY 07/08/22 11/03/23 Unknown History levothyroxine 100 mcg capsule 112 mcg PO DAILY 11/04/22 11/03/23 Unknown History ropinirole 3 mg tablet 3 mg PO .nightly 11/04/22 11/03/23 Unknown History rosuvastatin 20 mg tablet 20 mg PO DAILY 11/04/22 11/03/23 Unknown History tiotropium bromide 18 mcg capsule 1 cap inhalation DAILY 11/03/23 11/03/23 Unknown History with inhalation device (Spiriva with HandiHaler) Allergies Allergy/AdvReac Type Severity Reaction Status Date / Time poison sumac extract Allergy Severe Rash Verified 05/08/24 13:12 adhesive tape AdvReac Mild Rash Verified 05/08/24 13:12 bacitracin (From Neosporin AdvReac Mild Rash Verified 05/08/24 13:12 ([id number])) neomycin (From Neosporin AdvReac Mild Rash Verified 05/08/24 13:12 ([id number])) polymyxin B (From Neosporin AdvReac Mild Rash Verified 05/08/24 13:12 ([id number])) [facility] Past Medical History Medical History Erosion of bladder suspension mesh (02/12/22) excision of mesh / 05/29/2022 tension free vaginal tape Gallbladder disorder Screening mammogram, encounter for RLS (restless legs syndrome) Heart murmur History of tobacco abuse Obstructive sleep apnea Arthritis Osteoporosis Arthritis of shoulder region, right Subacromial impingement of right shoulder Hair loss Psoriasis Wears glasses Hearing loss Chronic headaches Ectopic kidney Spondylosis of lumbar spine Ocular migraine Vitamin D deficiency Female stress incontinence Osteoarthritis of knees, bilateral Hot thyroid nodule Tea's thyroiditis Depression Fibromyalgia Hypokalemia Hyperlipidemia Nerve damage cervical spine DDD (degenerative disc disease) Hypertension Asthma Venous reflux Bilateral lower extremity edema Surgical History Surgical History H/O thyroidectomy (05/29/22) History of tubal ligation History of ear, nose, and throat (ENT) surgery (~2013) sinus cautery History of hysterectomy, supracervical (07/25/10) History of endometrial ablation (01/04/10) hscope novasure ablation History of dilation and curettage (12/07/09) hscope d&c/polypectomy x3 others History of right hip replacement (01/03/21) History of sleeve gastrectomy (06/23/20) History of foot surgery Hammer Toe 2002 History of fusion of cervical spine History of cholecystectomy History of knee surgery PCL reconstruction 01/12/15 Dr. Sommer H/O colonoscopy with polypectomy 03/24/02 Family History Family History Father Acute myocardial infarction Myocardial infarction Hypertension Grandparent Diabetes mellitus Carcinoma of colon Mother Lung cancer COPD (chronic obstructive pulmonary disease) Sibling Lung cancer Other Family history of cardiovascular disease Social History Social History Smoking packs per day: 3 Smoking cigarettes per day: 60.0 Years smoked: 37 Smoking pack-years: 111.00 Smoking status: Former smoker Smoking end date: 06/22/08 Alcohol intake: never Substance use: current Substance use type: painkillers Other substance usage details: medical marijuana Lack of Transportation: No Lack of Food: Never True Current Housing: I Have Housing Concerned About Future Housing: No Difficulty Paying Gas/Electric Bills: No Difficulty Paying for Meds: No Currently Unemployed: No Education: Trade/Vocational Certificate Difficulty w/ Childcare or Family Care: No Living arrangements: other Additional living arrangements comments: Occupation/Education: unemployed Additional occupation/education comments: disabled Gender identity (if verbalized by the patient): Female Sexual Orientation (if Verbalized by the Patient): Straight or Heterosexual Exam Narrative: APPEARANCE: Disheveled Head: atraumatic. EYES: EOMI, NOSE: Atraumatic NECK: Trachea midline RESPIRATORY: Normal respiratory rate, saturating well on room air, speaking in full sentences, clear to auscultation CARDIOVASCULAR: RRR, no peripheral edema ABDOMINAL: Non-distended soft nontender MUSCULOSKELETAl: No obvious deformities NEURO: Alert. Moving 4/4 extremities SKIN:: Warm, dry. Normal color PSYCHIATRIC: Emotionally upset Course Vital Signs Vital signs: Vital Signs Temperature 98.5 F 07/31/24 19:29 Pulse Rate 72 07/31/24 19:29 Respiratory Rate 10 L 07/31/24 19:29 Blood Pressure 145/81 H 07/31/24 19:29 Pulse Oximetry 95 07/31/24 19:29 Oxygen Delivery Room Air 07/31/24 19:29 Temperature 98.5 F 07/31/24 19:29 Pulse Rate 52 L 08/01/24 01:03 Respiratory Rate 11 L 08/01/24 01:03 Blood Pressure 142/74 H 08/01/24 01:02 Pulse Oximetry 100 08/01/24 01:03 Oxygen Delivery Room Air 07/31/24 19:52 Medical Decision Making [facility] Narrative Medical decision making narrative: -Course: 63-year-old female presenting after intentional overdose on Vicodin 12/24/2024. Unknown amount. No opiate toxidrome at this time. Initial Tylenol level 71 -> 4hr - 56. This was discussed with poison control. They wanted the liver enzymes retested after 6 hours. Liver enzymes are up trending. Poison control recommended treatment with N-acetylcysteine. Patient has been started on NAC. She will be placed in the ICU for further management of her acetaminophen poisoning. In regards to her suicide attempt, I believe that she requires psychiatric admission. Involuntary petition is been filled out placed in the patient's chart. Case discussed with Dr. Burger and Dr. Flores. -DDX includes but is not limited to: SI, depression, adjustment disorder Vital Signs Vital Signs: Vital Signs Temperature 98.5 F 07/31/24 19:29 Pulse Rate 72 07/31/24 19:29 Respiratory Rate 10 L 07/31/24 19:29 Blood Pressure 145/81 H 07/31/24 19:29 Pulse Oximetry 95 07/31/24 19:29 Oxygen Delivery Room Air 07/31/24 19:29 Temperature 98.5 F 07/31/24 19:29 Pulse Rate 52 L 08/01/24 01:03 Respiratory Rate 11 L 08/01/24 01:03 Blood Pressure 142/74 H 08/01/24 01:02 Pulse Oximetry 100 08/01/24 01:03 Oxygen Delivery Room Air 07/31/24 19:52 Lab Data 07/31/24 20:01 08/01/24 01:40 Labs: Lab Results 07/31/24 07/31/24 08/01/24 Range/Units 20:01 22:28 01:40 WBC 4.6 (4.5-10.0) K/mm3 RBC 4.57 (4.2-5.4) M/mm3 Hgb 13.5 (12.0-15.0) g/dL Hct 42.7 (37.0-47.0) % MCV 93.4 (80-100) fl MCH 29.5 (26-34) pg MCHC 31.6 L (32-36) g/dl RDW 12.0 (11.5-14.5) % Plt Count 118 L D (150-375) k/mm3 MPV 10.4 (7.4-10.4) fl Immature Gran % (Auto) 0.2 (0-0.5) % Neut % (Auto) 75.1 H (45.5-73.1) % Lymph % (Auto) 16.4 L (18.3-44.2) % [place] % (Auto) 7.1 (2.6-8.5) % Eos % (Auto) 0.6 (0-4.4) % Baso % (Auto) 0.6 (0.2-1.2) % Lymph # (Auto) 0.76 L (0.9-3.2) K/mm3 [place] # (Auto) 0.3 (0.1-0.6) K/mm3 Eos # (Auto) 0.0 (0-0.3) K/mm3 Baso # (Auto) 0.0 (0.0-0.1) K/mm3 Abs Immat Gran (auto) 0.01 (0.00-0.031) K/mm3 Absolute Neuts (auto) 3.5 (1.3-6.7) K/mm3 Absolute Nucleated RBC 0.000 (0.0-0.012) K/mm3 Nucleated RBC % 0.0 (0.0-0.2) % % Immature Plt Fraction 3.2 (0.9-11.2) % PT 15.2 H (11.1-14.7) Seconds INR 1.2 APTT 27.7 (22.3-36.8) Seconds Sodium 141 144 (137-145) mmol/L Potassium 2.4 L* 3.1 L (3.4-5.0) mmol/L Chloride 105 107 (98-107) mmol/L Carbon Dioxide 29 29 (22-30) mmol/L Anion Gap 7 8 (4-12) mmol/L BUN 11 9 (7-17) mg/dL Creatinine 0.66 L 0.61 L (0.7-1.0) mg/dL Estim Creat Clear Calc 74 80 ml/min Estimated GFR > 60 > 60 (59 - ) Glucose 120 H 111 H (65-110) mg/dL Lactic Acid 1.1 (0.7-2.0) mmol/L Calcium 8.1 L 8.1 L (8.4-10.2) mg/dL Phosphorus 3.4 (2.5-4.5) mg/dL Magnesium 2.0 (1.6-2.3) mg/dL Total Bilirubin 0.8 0.7 (0.2-1.3) mg/dL AST 61 H 350 H (14-36) U/L ALT 58 H 186 H (6-35) U/L Alkaline Phosphatase 132 H 166 H (38-126) U/L Total Creatine Kinase 127 (30-135) U/L Troponin I < 0.012 < 0.012 (0.000-0.034) ng/mL Total Protein 6.0 L 7.0 (6.3-8.2) g/dL Albumin 3.7 4.0 (3.5-5.1) g/dL Lipase 75 (23-300) U/L TSH (Reflex) 1.550 (0.465-4.68) uIU/mL Urine Color Yellow (Yellow) Urine Appearance Clear (Clear) Urine pH 6.0 (5.0-9.0) Ur Specific [place] 1.020 (1.001-1.035) Urine Protein Trace (Negative) mg/dL Urine Glucose (UA) Negative (Negative) mg/dL Urine Ketones Trace H (Negative) mg/dL Ur Blood (Man) Negative (Negative) Urine Nitrate Negative (Negative) Urine Bilirubin Negative (Negative) Urine Urobilinogen 1.0 (<2.0) mg/dL Add Ur Microanalysis Reviewed Leukocyte Esterase Rfl Trace H (Negative) FABIOLA/UL Urine RBC 6-10 H (0-2) /hpf Urine WBC 6-10 H (0-3) /hpf Ur Squamous Epith Cells Few (Few) /hpf Urine Bacteria None seen /hpf Urine Casts 3-5 Urine Mucus Present /lpf Salicylates < 1.0 L (2-20) mg/dL Urine Opiates Screen Positive A (Negative) Urine Methadone Screen Negative (Negative) Acetaminophen 71 H 56 H 32 H (10-30) ug/mL Ur Barbiturates Screen Negative (Negative) Ur Phencyclidine Scrn Negative (Negative) Ur Amphetamine Screen Negative (Negative) U Benzodiazepines Scrn Negative (Negative) Urine Cocaine Screen Negative (Negative) U Cannabinoids Screen Positive A (Negative) Ethyl Alcohol < 10 (<10) mg/dL Influenza A (RT-PCR) Negative (Negative) Influenza B (RT-PCR) Negative (Negative) RSV (RT-PCR) Negative (Negative) SARS-CoV-2 RNA (RT-PCR) Negative (Negative) ABG Data ABG results: 07/31/24 20:01 VBG pH 7.417 H* VBG pCO2 44.8 VBG pO2 42.1 VBG HCO3 28.2 O2 Delivery Device Room air O2 Liters/Min 0.0 FiO2 21 Critical Care Time Critical Care Time Critical Care Time: Yes Total Critical Care Time: 35 Discharge Plan Discharge Clinical Impression: Intentional overdose, Elevated liver enzymes, Acetaminophen poisoning Patient Disposition: Still a Patient Condition: Stable Patient Language: Andorran Prescriptions: No Action spironolactone 25 mg tablet 25 mg PO DAILY levothyroxine 100 mcg capsule 112 mcg PO DAILY cyclobenzaprine 10 mg tablet 10 mg PO .qd duloxetine 60 mg capsule,delayed release(DR/EC) 60 mg PO DAILY Qty: 90 1RF tiotropium bromide [Spiriva with HandiHaler] 18 mcg capsule, w/inhalation device 1 cap inhalation DAILY Rx Instructions: puncture 1 cap using device; one dose = 2 inhalations calcium citrate 200 mg (950 mg) tablet 200 mg PO DAILY rosuvastatin 20 mg tablet 20 mg PO DAILY ropinirole 3 mg tablet 3 mg PO .nightly cefuroxime axetil 500 mg tablet 500 mg PO BID Qty: 14 0RF hydrocodone-acetaminophen 10-325 mg tablet 1 tablet PO Q4-6H PRN (Reason: pain (scale score 7-10)) Qty: 180 0RF Rx Instructions: To last 30 days, due 02/12/2021 potassium chloride 20 mEq tablet,ER particles/crystals 20 meq PO .COMPLEX Qty: 90 0RF Rx Instructions: 20 mEq orally 1 tablet p.o. b.i.d. for 3 days and then 1 tablet p.o. q.day; albuterol sulfate [Ventolin HFA] 90 mcg/actuation HFA aerosol inhaler See Rx Instructions .ROUTE .COMPLEX Qty: 18 0RF Dose Instruction: INHALE 1 TO 2 PUFFS BY MOUTH EVERY 4 TO 6 HOURS NEEDED FOR SHORTNESS OF BREATH OR WHEEZING Rx Instructions: INHALE 1 TO 2 PUFFS BY MOUTH EVERY 4 TO 6 HOURS NEEDED FOR SHORTNESS OF BREATH OR WHEEZING estradiol 0.01 % (0.1 mg/gram) cream 1 g vaginal 3XW Qty: 42.5 2RF gabapentin 100 mg capsule See Rx Instructions .ROUTE .COMPLEX Qty: 270 3RF Dose Instruction: TAKE 1 CAPSULE BY MOUTH 3 TIMES DAILY Rx Instructions: TAKE 1 CAPSULE BY MOUTH 3 TIMES DAILY ropinirole 1 mg tablet See Rx Instructions .ROUTE .COMPLEX Qty: 100 1RF Dose Instruction: TAKE 1 TABLET BY MOUTH DAILY Rx Instructions: TAKE 1 TABLET BY MOUTH DAILY ropinirole 3 mg tablet See Rx Instructions .ROUTE .COMPLEX Qty: 100 1RF Dose Instruction: TAKE 1 TABLET BY MOUTH 1 TO 2 HOURS BEFORE BEDTIME Rx Instructions: TAKE 1 TABLET BY MOUTH 1 TO 2 HOURS BEFORE BEDTIME Follow-up/Referrals: Dee Dee,MD Eddie [Primary Care Provider] -
[2024-07-31 22:43] LABS: Acetaminophen 56 ug/mL (10-30)
[2024-07-31 22:55] LABS: Troponin I < 0.012 ng/mL (0.000-0.034)
[2024-08-01] VITALS (19 sets, daily range): BP systolic 118–163; BP diastolic 50–86; PULSE 48–88; RESP 8–22; TEMP 36.4–36.9; O2SAT 97–100; BMI 27.1
[2024-08-01 02:02] LABS: Acetaminophen 32 ug/mL (10-30)
[2024-08-01 02:05] LABS: Alanine Aminotransferase 186 U/L (6-35); Alkaline Phosphatase 166 U/L (38-126); Anion Gap 8 mmol/L (4-12); Aspartate Amino Transferase 350 U/L (14-36); Bilirubin,Total 0.7 mg/dL (0.2-1.3); Blood Urea Nitrogen 9 mg/dL (7-17); Calcium 8.1 mg/dL (8.4-10.2); Carbon Dioxide 29 mmol/L (22-30); Chloride 107 mmol/L (98-107); Estimated CRCL calculation 80 ml/min; Estimated Glomerular Filt Rate > 60; Glucose 111 mg/dL (65-110); Potassium 3.1 mmol/L (3.4-5.0); Sodium 144 mmol/L (137-145)
[2024-08-01] MEDS: WATER IVPB ×2 (02:35→03:41)
[2024-08-01] MEDS: ACETYLCYSTEINE IVPB ×3 (02:35→07:51)
[2024-08-01] MEDS: DEXTROSE 5% IVPB ×3 (02:35→07:51)
[2024-08-01] MEDS: POTASSIUM CHLORIDE 20 MEQ ER TABLET 40 MEQ PO ×4 (02:36→22:32)
--- NOTE | 2024-08-01 03:37 | PM.IMHP ---
H&P: HPI History of Present Illness Date/Time: 08/01/24 03:37 Chief Complaint: [place] overdose Narrative: 63-year-old female with a past medical history of COPD, essential hypertension hypothyroidism, chronic pain, anxiety, depression, gastric sleeve with duodenal switch, hepatic steatosis with chronic transaminitis, thyroidectomy among other chronic comorbidities presented to the ER via EMS from a local bar due to intentional [place] overdose. The patient reports that she has been under increased emotional stressors. Her son and [id number] a moved out of the country and have essentially cut ties with the patient. They also left 2 of their children behind and she states that she is worried about her grand children. Her also recently started talking to a celebrity website and she reports he has developed infatuation with the celebrity. He recently told her that he was not in love with her anymore because he wanted to be with the celebrity. CT stated that she had a partial bottle of her [place] and her purse and just took a hand full. She is assuming she had about 30-35 tablets of [place]. She took the tablets around 3:30 p.m.. She then tried to leave the house. Her tried to restrain her from leaving the house because he thought she needed to go to the ER. The patient refused and she managed to evade him and was trying to get into the van. She was crawling around and through the van to try to get into the local delivery truck driver seat so that she could go to the bar to drink some alcohol. She states that she thought if she could drink some alcohol that she would then be able to throw up the pills. When she got to the bar in the intellectual property legal assistant heard the story they subsequently called EMS and did not allow the patient to drink any alcohol. The patient was subsequently brought in for evaluation and treatment. Tylenol level on arrival to the ER was 71 (4.5 hours after initial ingestion). The patient's Tylenol level had trended down during her the ER visit. When poison Control contacted they wanted repeat CMP due to the patient's elevated liver enzymes. The patient's liver enzymes had increased and subsequently patient placed on N-acetylcysteine and admitted. Patient does report that she has been nauseated since a couple of hours after she took the [place]. She reports that she hurts all over and her neck head low back toes knees and ankles. She reports that she has a history of depression but has not been on any antidepressants since [facility] because she could not get to the doctor's office to get her medications refilled. She cannot recall what antidepressants she was on. She has never been hospitalized for depression. She has never had a prior suicide attempt. She states that she no longer wants to hurt herself and regrets her impulsive decision. Review of Systems Review of Systems: 12 systems were reviewed with pertinent positives and negatives per HPI. Except as documented in the HPI, all other systems were reviewed and are negative. [facility] Past Medical History Medical History (Updated 08/01/24 @ 07:33 by Olamide Flores DO) LPRD (laryngopharyngeal reflux disease) Vasomotor rhinitis Gallbladder disorder RLS (restless legs syndrome) Heart murmur History of tobacco abuse Quit 2008 Obstructive sleep apnea Resolved after weight loss surgery with a 240 lb weight loss most recent polysomnogram 2021 Osteoporosis Arthritis of shoulder region, right Subacromial impingement of right shoulder Hair loss Psoriasis Wears glasses Hearing loss Chronic headaches Ectopic kidney Spondylosis of lumbar spine Ocular migraine Vitamin D deficiency Female stress incontinence Osteoarthritis of knees, bilateral Hot thyroid nodule Tea's thyroiditis Depression Fibromyalgia Hyperlipidemia DDD (degenerative disc disease) Hypertension Asthma Venous reflux Surgical History Surgical History (Updated 08/01/24 @ 03:45 by Olamide Flores DO) H/O thyroidectomy (05/29/22) History of tubal ligation History of ear, nose, and throat (ENT) surgery (~2013) sinus cautery History of hysterectomy, supracervical (07/25/10) History of endometrial ablation (01/04/10) hscope novasure ablation History of dilation and curettage (12/07/09) hscope d&c/polypectomy x3 others History of right hip replacement (01/03/21) History of sleeve gastrectomy (06/23/20) 240 lb weight loss History of foot surgery Hammer Toe 2002 History of fusion of cervical spine History of cholecystectomy History of knee surgery PCL reconstruction 01/12/15 Dr. Sommer H/O colonoscopy with polypectomy 03/24/02 Family History Family History Father Acute myocardial infarction Myocardial infarction Hypertension Grandparent Diabetes mellitus Carcinoma of colon Mother Lung cancer COPD (chronic obstructive pulmonary disease) Sibling Lung cancer Other Family history of cardiovascular disease Social History Social History (Updated 08/01/24 @ 07:26 by Olamide Flores DO) Social History: Patient lives in [place] with her . She used to smoke up to 3 packs of cigarettes per day but quit smoking 2008. She denies history of heavy alcohol use. She does smoke marijuana daily. She reports that she has been disabled for 20 or 30 years. Code status: Full code Surrogate decision maker: Smoking packs per day: 3 Smoking cigarettes per day: 60.0 Years smoked: 37 Smoking pack-years: 111.00 Smoking status: Former smoker Smoking end date: 06/22/08 Additional smoking assessment comments: 2-3 packs a day Alcohol intake: former Substance use: current Substance use type: marijuana Other substance usage details: medical marijuana Last use: daily Do You Feel Safe in your Home?: No Lack of Transportation: No Lack of Food: Never True Current Housing: I Have Housing Concerned About Future Housing: No Difficulty Paying Gas/Electric Bills: No Difficulty Paying for Meds: No Currently Unemployed: No Education: Trade/Vocational Certificate Difficulty w/ Childcare or Family Care: No Living arrangements: other Additional living arrangements comments: Occupation/Education: unemployed Additional occupation/education comments: disabled Gender identity (if verbalized by the patient): Female Sexual Orientation (if Verbalized by the Patient): Straight or Heterosexual Spiritual care concerns: No Meds Home Medications and Allergies Home Medications Medication Instructions Recorded Confirmed Type calcium citrate 200 mg PO DAILY 09/26/20 08/01/24 History hydrocodone 10 mg-acetaminophen 1 tablet PO Q4-6H PRN pain (scale 02/12/21 08/01/24 Rx 325 mg tablet score 7-10) #180 tabs cyclobenzaprine 10 mg tablet 10 mg PO .qd 09/07/21 08/01/24 History duloxetine 60 mg capsule,delayed 60 mg PO DAILY #90 caps 09/07/21 08/01/24 Rx release spironolactone 25 mg tablet 25 mg PO DAILY 07/08/22 08/01/24 History levothyroxine 100 mcg capsule 112 mcg PO DAILY 11/04/22 08/01/24 History rosuvastatin 20 mg tablet 20 mg PO DAILY 11/04/22 08/01/24 History tiotropium bromide 18 mcg capsule 1 cap inhalation DAILY 11/03/23 08/01/24 History with inhalation device (Spiriva with HandiHaler) ropinirole 1 mg tablet See Rx Instructions .Route 04/30/24 08/01/24 Rx .COMPLEX #100 tabs ropinirole 3 mg tablet See Rx Instructions .Route 04/30/24 08/01/24 Rx .COMPLEX #100 tabs albuterol 90 mcg-budesonide 80 2 inh inhalation Q6H PRN shortness 08/01/24 08/01/24 History mcg/actuation HFA aerosol inhaler of breath (Airsupra) estradiol 0.01% (0.1 mg/gram) 1 g vaginal 3XW PRN hormones 08/01/24 08/01/24 History vaginal cream gabapentin 100 mg capsule 100 mg PO BID 08/01/24 08/01/24 History potassium chloride 20 mEq 20 meq PO DAILY 08/01/24 08/01/24 History tablet,extended release(part/cryst) Allergies Allergy/AdvReac Type Severity Reaction Status Date / Time poison sumac extract Allergy Severe Rash Verified 05/08/24 13:12 adhesive tape AdvReac Mild Rash Verified 05/08/24 13:12 bacitracin (From Neosporin AdvReac Mild Rash Verified 05/08/24 13:12 ([id number])) neomycin (From Neosporin AdvReac Mild Rash Verified 05/08/24 13:12 ([id number])) polymyxin B (From Neosporin AdvReac Mild Rash Verified 05/08/24 13:12 ([id number])) Vital Signs Vital Signs - 24 hr 07/31/24 19:29 07/31/24 19:51 07/31/24 19:52 Temperature 98.5 F Pulse Rate 72 77 Respiratory Rate 10 L 19 16 Blood Pressure 145/81 H 145/81 H Pulse Oximetry 95 98 Oxygen Delivery Room Air Room Air 07/31/24 19:52 07/31/24 19:57 07/31/24 20:00 Temperature Pulse Rate 69 70 Respiratory Rate 15 Blood Pressure Pulse Oximetry 100 99 94 Oxygen Delivery Room Air 07/31/24 20:15 07/31/24 20:30 07/31/24 20:45 Temperature Pulse Rate 87 60 85 Respiratory Rate 13 10 L 17 Blood Pressure Pulse Oximetry 98 98 96 Oxygen Delivery 07/31/24 21:00 07/31/24 21:30 07/31/24 22:01 Temperature Pulse Rate 62 85 79 Respiratory Rate 16 24 H 14 Blood Pressure 147/71 H 127/57 L Pulse Oximetry 100 97 93 Oxygen Delivery 07/31/24 23:01 07/31/24 23:02 07/31/24 23:15 Temperature Pulse Rate 64 59 L 67 Respiratory Rate 18 15 23 H Blood Pressure 126/80 Pulse Oximetry 99 99 90 Oxygen Delivery 07/31/24 23:30 07/31/24 23:31 07/31/24 23:45 Temperature Pulse Rate 73 61 63 Respiratory Rate 15 16 Blood Pressure 131/64 Pulse Oximetry 97 99 100 Oxygen Delivery 08/01/24 00:00 08/01/24 00:01 08/01/24 00:15 Temperature Pulse Rate 54 L 61 53 L Respiratory Rate 8 L 11 L 20 Blood Pressure 137/84 Pulse Oximetry 99 100 99 Oxygen Delivery 08/01/24 00:30 08/01/24 00:31 08/01/24 00:45 Temperature Pulse Rate 52 L 49 L 48 L Respiratory Rate 10 L 10 L 8 L Blood Pressure 129/76 Pulse Oximetry 100 98 100 Oxygen Delivery 08/01/24 01:02 08/01/24 01:03 08/01/24 02:37 Temperature Pulse Rate 52 L 52 L 63 Respiratory Rate 10 L 11 L 10 L Blood Pressure 142/74 H 144/75 H Pulse Oximetry 100 100 98 Oxygen Delivery 08/01/24 03:01 Temperature Pulse Rate 63 Respiratory Rate 11 L Blood Pressure 163/86 H Pulse Oximetry 100 Oxygen Delivery Exam Narrative: Weight 71.9 kg BMI 27.2 Const: Other: No acute distress, appears stated age, height weight proportionate HENMT: Other: Mucous membranes are dry, no oral pharyngeal erythema, head is normocephalic atraumatic Eyes: Other: Pupils are equal and reactive, no scleral icterus, no conjunctival pallor Neck: Other: No JVD, no palpable thyroid Resp: Other: Clear to auscultation bilaterally, no increased work of breathing Cardio: Other: Regular rate, regular rhythm, no murmurs GI: Other: Soft, nontender, nondistended, no hepatosplenomegaly Skin: Other: Multiple areas of bruising all of different stages, large amounts of redundant skin and consistent with patient's history of prior weight loss surgery Neuro: Other: Alert oriented x4, speech is clear but pressured, no localizing neurologic deficits noted during the course of conversation Extrem: Other: No clubbing, no edema, patient has violaceous discoloration of the toes of the left foot which she reports is chronic she has postsurgical changes of the 2nd and 3rd toe of the left foot and a lump on the top of her left foot that she states is related to her recent surgery. She is post follow-up with the surgeon next week. Psych: Other: Pressured speech, H&P: Results Labs Labs: Short CBC 07/31/24 Range/Units 20:01 WBC 4.6 (4.5-10.0) K/mm3 Hgb 13.5 (12.0-15.0) g/dL Hct 42.7 (37.0-47.0) % Plt Count 118 L D (150-375) k/mm3 BMP 07/31/24 08/01/24 20:01 01:40 Sodium 141 144 Potassium 2.4 L* 3.1 L Chloride 105 107 Carbon Dioxide 29 29 BUN 11 9 Creatinine 0.66 L 0.61 L Glucose 120 H 111 H Calcium 8.1 L 8.1 L Cardiac Enzymes 07/31/24 07/31/24 Range/Units 20:01 22:28 Total Creatine Kinase 127 (30-135) U/L Troponin I < 0.012 < 0.012 (0.000-0.034) ng/mL Liver Function 07/31/24 08/01/24 Range/Units 20:01 01:40 Total Bilirubin 0.8 0.7 (0.2-1.3) mg/dL AST 61 H 350 H (14-36) U/L ALT 58 H 186 H (6-35) U/L Alkaline Phosphatase 132 H 166 H (38-126) U/L Albumin 3.7 4.0 (3.5-5.1) g/dL Urine 07/31/24 Range/Units 20:01 Urine Color Yellow (Yellow) Urine Appearance Clear (Clear) Urine pH 6.0 (5.0-9.0) Ur Specific [place] 1.020 (1.001-1.035) Urine Protein Trace (Negative) mg/dL Urine Glucose (UA) Negative (Negative) mg/dL Laboratory Tests 08/01/24 06:27 08/01/24 06:27 07/31/24 07/31/24 08/01/24 20:01 22:28 01:40 WBC 4.6 RBC 4.57 Hgb 13.5 Hct 42.7 MCV 93.4 MCH 29.5 MCHC 31.6 L RDW 12.0 Plt Count 118 L D MPV 10.4 Immature Gran % (Auto) 0.2 Neut % (Auto) 75.1 H Lymph % (Auto) 16.4 L [place] % (Auto) 7.1 Eos % (Auto) 0.6 Baso % (Auto) 0.6 Lymph # (Auto) 0.76 L [place] # (Auto) 0.3 Eos # (Auto) 0.0 Baso # (Auto) 0.0 Abs Immat Gran (auto) 0.01 Absolute Neuts (auto) 3.5 Absolute Nucleated RBC 0.000 Nucleated RBC % 0.0 % Immature Plt Fraction 3.2 PT 15.2 H INR 1.2 APTT 27.7 VBG pH 7.417 H* VBG pCO2 44.8 VBG pO2 42.1 VBG HCO3 28.2 O2 Delivery Device Room air O2 Liters/Min 0.0 FiO2 21 Sodium 141 144 Potassium 2.4 L* 3.1 L Chloride 105 107 Carbon Dioxide 29 29 Anion Gap 7 8 BUN 11 9 Creatinine 0.66 L 0.61 L Estim Creat Clear Calc 74 80 Estimated GFR > 60 > 60 Glucose 120 H 111 H Lactic Acid 1.1 Calcium 8.1 L 8.1 L Phosphorus 3.4 Magnesium 2.0 Total Bilirubin 0.8 0.7 AST 61 H 350 H ALT 58 H 186 H Alkaline Phosphatase 132 H 166 H Total Creatine Kinase 127 Troponin I < 0.012 < 0.012 Total Protein 6.0 L 7.0 Albumin 3.7 4.0 Lipase 75 TSH (Reflex) 1.550 Urine Color Yellow Urine Appearance Clear Urine pH 6.0 Ur Specific [place] 1.020 Urine Protein Trace Urine Glucose (UA) Negative Urine Ketones Trace H Ur Blood (Man) Negative Urine Nitrate Negative Urine Bilirubin Negative Urine Urobilinogen 1.0 Add Ur Microanalysis Reviewed Leukocyte Esterase Rfl Trace H Urine RBC 6-10 H Urine WBC 6-10 H Ur Squamous Epith Cells Few Urine Bacteria None seen Urine Casts 3-5 Urine Mucus Present Salicylates < 1.0 L Urine Opiates Screen Positive A Urine Methadone Screen Negative Acetaminophen 71 H 56 H 32 H Ur Barbiturates Screen Negative Ur Phencyclidine Scrn Negative Ur Amphetamine Screen Negative U Benzodiazepines Scrn Negative Urine Cocaine Screen Negative U Cannabinoids Screen Positive A Ethyl Alcohol < 10 Influenza A (RT-PCR) Negative Influenza B (RT-PCR) Negative RSV (RT-PCR) Negative SARS-CoV-2 RNA (RT-PCR) Negative 08/01/24 06:27 WBC 3.6 L RBC 4.89 Hgb 14.6 Hct 46.6 MCV 95.3 MCH 29.9 MCHC 31.3 L RDW 12.1 Plt Count 101 L MPV 10.9 H Immature Gran % (Auto) 0.3 Neut % (Auto) 68.0 Lymph % (Auto) 23.3 [place] % (Auto) 7.2 Eos % (Auto) 0.6 Baso % (Auto) 0.6 Lymph # (Auto) 0.84 L [place] # (Auto) 0.3 Eos # (Auto) 0.0 Baso # (Auto) 0.0 Abs Immat Gran (auto) 0.01 Absolute Neuts (auto) 2.5 Absolute Nucleated RBC 0.000 Nucleated RBC % 0.0 % Immature Plt Fraction 4.3 PT 16.3 H INR 1.3 APTT 27.3 VBG pH VBG pCO2 VBG pO2 VBG HCO3 O2 Delivery Device O2 Liters/Min FiO2 Sodium 144 Potassium 3.1 L Chloride 104 Carbon Dioxide 33 H Anion Gap 7 BUN 6 L Creatinine 0.51 L Estim Creat Clear Calc 93 Estimated GFR > 60 Glucose 117 H Lactic Acid Calcium 8.4 Phosphorus Magnesium Total Bilirubin 0.6 AST 284 H ALT 201 H Alkaline Phosphatase 26 L Total Creatine Kinase Troponin I Total Protein 7.0 Albumin 3.9 Lipase TSH (Reflex) Urine Color Urine Appearance Urine pH Ur Specific [place] Urine Protein Urine Glucose (UA) Urine Ketones Ur Blood (Man) Urine Nitrate Urine Bilirubin Urine Urobilinogen Add Ur Microanalysis Leukocyte Esterase Rfl Urine RBC Urine WBC Ur Squamous Epith Cells Urine Bacteria Urine Casts Urine Mucus Salicylates Urine Opiates Screen Urine Methadone Screen Acetaminophen Ur Barbiturates Screen Ur Phencyclidine Scrn Ur Amphetamine Screen U Benzodiazepines Scrn Urine Cocaine Screen U Cannabinoids Screen Ethyl Alcohol Influenza A (RT-PCR) Influenza B (RT-PCR) RSV (RT-PCR) SARS-CoV-2 RNA (RT-PCR) Impressions Chest X-Ray 07/31/24 20:06 IMPRESSION: No acute cardiopulmonary pathology. Assessment and Plan Assessment and plan (1) Acetaminophen poisoning: Qualifiers: Encounter type: initial encounter Injury intent: intentional self-harm Qualified Code(s): T39.1X2A - Poisoning by 4-Aminophenol derivatives, intentional self-harm, initial encounter Code(s): T39.1X1A - Poisoning by 4-Aminophenol derivatives, accidental (unintentional), initial encounter Status: Acute (2) Intentional overdose: Qualifiers: Encounter type: initial encounter Qualified Code(s): T50.902A - Poisoning by unspecified drugs, medicaments and biological substances, intentional self-harm, initial encounter Code(s): T50.902A - Poisoning by unspecified drugs, medicaments and biological substances, intentional self-harm, initial encounter Status: Acute (3) Elevated liver enzymes: Code(s): R74.8 - Abnormal levels of other serum enzymes Status: Acute Plan Patient had intentional Tylenol overdose due to attempt for self-harm. She does have chronic elevated LFTs due to history of hepatic steatosis. However her LFTs did increase presumed to be due to Tylenol toxicity. Patient has been placed on N-acetylcysteine per usual dosing protocol with under recommendations of poison Control. Will monitor serial transaminases. Will repeat coags with a.m. labs. preparation center coordinator is at bedside. Patient will need cleared by crisis and or psychiatric placement prior to discharge. Patient was significantly hypokalemic on admission. She has history of chronic hypokalemia in part due to her history of gastric sleeve with duodenal switch. Will increase the patient's potassium supplement to b.i.d. dosing and will switch formulation to liquid for increased ease of ingestion. The patient reports he has difficulty swallowing potassium tablets due to their size. Will continue potassium-sparing diuretic. Will resume the remainder the patient's home medications as appropriate. Quality VTE Prophylaxis VTE prophylaxis: pharmacologic ordered (Heparin 5000 units subQ q.12 hours) Hospitalist [facility] Advance Care Plan I have confirmed that the patient's Advanced Care Plan is present, code status is documented, or surrogate decision maker is listed in patient medical record.: Yes Medication Reconciliation I have utilized all available resources to obtain, update and review the patients current medications (includes all prescriptions, OTC, herbals, cannabis, and nutritional supplements).: Yes
--- NOTE | 2024-08-01 04:36 | ADMGEN ---
This patient, Flor Gallego, was admitted to Intensive Care Unit-4 at 0400. Patient/family oriented to hospital policies and general routines including ID bracelet, bed and alarms, visiting hours, pain management, procedures, bathroom and other care routines, personal items, smoking policy, room service/diet, and visiting hours. Information on how to activate the Rapid Response Team has been discussed. Patient/Family are encouraged to report perceived risks to care and to ask questions if they do not understand what they are told or what they should do.
[2024-08-01 06:37] LABS: Basophils Percent Auto 0.6 % (0.2-1.2); Eosinophils Percent Auto 0.6 % (0-4.4); Hematocrit 46.6 % (37.0-47.0); Hemoglobin 14.6 g/dL (12.0-15.0); Immature Granulocyte Absolute 0.01 K/mm3 (0.00-0.031); Immature Granulocyte Percent A 0.3 % (0-0.5); Immature Platelet Fraction Pct 4.3 % (0.9-11.2); Lymphocytes Absolute Auto 0.84 K/mm3 (0.9-3.2); Lymphocytes Percent Auto 23.3 % (18.3-44.2); Mean Corpuscular HGB Conc 31.3 g/dl (32-36); Mean Corpuscular Hemoglobin 29.9 pg (26-34); Mean Corpuscular Volume 95.3 fl (80-100); Mean Platelet Volume 10.9 fl (7.4-10.4); Monocytes Absolute Auto 0.3 K/mm3 (0.1-0.6); Monocytes Percent Auto 7.2 % (2.6-8.5); Neutrophils Absolute Auto 2.5 K/mm3 (1.3-6.7); Platelet Count Result 101 k/mm3 (150-375); Red Blood Count 4.89 M/mm3 (4.2-5.4); Red Cell Distribution Width 12.1 % (11.5-14.5); White Blood Count 3.6 K/mm3 (4.5-10.0)
[2024-08-01 06:49] LABS: INR 1.3; Partial Thromboplastin Time 27.3 Seconds (22.3-36.8); Prothrombin Time 16.3 Seconds (11.1-14.7)
[2024-08-01 06:53] LABS: Alanine Aminotransferase 201 U/L (6-35); Albumin Level 3.9 g/dL (3.5-5.1); Alkaline Phosphatase 26 U/L (38-126); Anion Gap 7 mmol/L (4-12); Aspartate Amino Transferase 284 U/L (14-36); Bilirubin,Total 0.6 mg/dL (0.2-1.3); Blood Urea Nitrogen 6 mg/dL (7-17); Calcium 8.4 mg/dL (8.4-10.2); Carbon Dioxide 33 mmol/L (22-30); Chloride 104 mmol/L (98-107); Estimated CRCL calculation 93 ml/min; Estimated Glomerular Filt Rate > 60; Glucose 117 mg/dL (65-110); Potassium 3.1 mmol/L (3.4-5.0); Sodium 144 mmol/L (137-145)
--- NOTE | 2024-08-01 09:09 | P.CONIN_ITS ---
Assessment and Plan Assessment and plan (1) Acetaminophen poisoning: Qualifiers: Encounter type: initial encounter Injury intent: intentional self-harm Qualified Code(s): T39.1X2A - Poisoning by 4-Aminophenol derivatives, intentional self-harm, initial encounter Code(s): T39.1X1A - Poisoning by 4-Aminophenol derivatives, accidental (unintentional), initial encounter Status: Acute Assessment and Plan: patient presented with intentional overdose of [employer]. no symptoms signs opioid overdose but patient did had elevated acetaminophen level along with elevated LFTs. Now patient does have history of epic liver disease and is also on statin hence LFT elevation i could be multifactorial. After discussion with poison Control it was resumed the patient may have histamine fun toxicity hence patient was started on N-acetylcysteine which will be continued. Repeat acetaminophen level shows dropping to a low level and I will recheck later in the evening. AST and elevated remained elevated although at lower levels. Patient also has elevated alkaline phosphatase. Repeat liver enzymes laying later in the evening check viral hepatitis panel and right upper quadrant ultrasound hold statin (2) Intentional overdose: Qualifiers: Encounter type: initial encounter Qualified Code(s): T50.902A - Poisoning by unspecified drugs, medicaments and biological substances, intentional self-harm, initial encounter Code(s): T50.902A - Poisoning by unspecified drugs, medicaments and biological substances, intentional self-harm, initial encounter Status: Acute Assessment and Plan: intentional overdose with [employer] as a suicide attempt. She has history of depression but currently not on any treatment. Continue suicide precautions with one-to-one sitter at this time psychiatry evaluation once medically improved (3) Depression: Code(s): F32.9 - Major depressive disorder, single episode, unspecified Status: Acute Assessment and Plan: see above (4) Hypothyroidism: Code(s): E03.9 - Hypothyroidism, unspecified Status: Acute Assessment and Plan: continue levothyroxine. TSH in normal range (5) GERD (gastroesophageal reflux disease): Code(s): K21.9 - Gastro-esophageal reflux disease without esophagitis Status: Acute Assessment and Plan: Protonix (6) Elevated LFTs: Code(s): R79.89 - Other specified abnormal findings of blood chemistry Status: Acute Assessment and Plan: see above (7) Hypokalemia: Code(s): E87.6 - Hypokalemia Status: Acute Assessment and Plan: potassium replacement and repeat electrolyte check ordered (8) COPD (chronic obstructive pulmonary disease): Qualifiers: COPD type: unspecified COPD Qualified Code(s): J44.9 - Chronic obstructive pulmonary disease, unspecified Code(s): J44.9 - Chronic obstructive pulmonary disease, unspecified Status: Acute Assessment and Plan: not in exacerbation bronchodilators Plan DVT prophylaxis - SCD, heparin Stress ulcer prophylaxis - Nutrition - diet ordered Code Status - Full Code Total Critical Care Time - 32 minutes Due to a high probability of clinically significant, life threatening deterioration, the patient required my highest level of preparedness to intervene emergently and I personally spent this critical care time directly and personally managing the patient. This critical care time included obtaining a history; examining the patient; pulse oximetry; ordering and review of studies; arranging urgent treatment with development of a management plan; evaluation of patient's response to treatment; frequent reassessment; and discussions with other providers. It was exclusive of separately billable procedures and treating other patients and teaching time. 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 patient states that she had increased emotional stress and took bunch of [employer] pills that she had her purse. She estimated that she took 30-35 pills when she reported to the ER. This happened around 3:30 p.m. patient has history of depression but not on any current treatment. She denies any past suicidal or homicidal ideation or attempts. She was found to be having elevated liver enzymes and was started on N-acetylcysteine infusion after discussion with poison Control. This morning when I evaluated the patient she states she does not remember most of what happened yesterday. She states 2 days ago she slipped and bumped her face into her 's shoulder and since then her i.e. his red although the redness has improved significantly since initial incident.. She states she has balance issues and falls all the time.. She could not provide me many details about her pill ingestion yesterday and she states she does not remember much.. She states she has chronic pain all over her body secondary to arthritis and degenerative disc disease. She also states she has chronic diarrhea. She denies any fever chest pain shortness a breath dysuria hematuria hematochezia melena. She states she had nausea but no vomiting since coming to the hospital and initiation of treatment. All other systems were reviewed and were negative Review of Systems 2 Review of Systems: All systems reviewed & are unremarkable except as noted in HPI and below ( HPI) [facility] Past Medical History Medical History (Updated 08/01/24 @ 09:15 by Doug Burger MD) LPRD (laryngopharyngeal reflux disease) Vasomotor rhinitis Gallbladder disorder RLS (restless legs syndrome) Heart murmur History of tobacco abuse Quit 2008 Obstructive sleep apnea Resolved after weight loss surgery with a 240 lb weight loss most recent polysomnogram 2021 Osteoporosis Arthritis of shoulder region, right Subacromial impingement of right shoulder Hair loss Psoriasis Wears glasses Hearing loss Chronic headaches Ectopic kidney Spondylosis of lumbar spine Ocular migraine Vitamin D deficiency Female stress incontinence Osteoarthritis of knees, bilateral Hot thyroid nodule Tea's thyroiditis Depression Fibromyalgia Hyperlipidemia DDD (degenerative disc disease) Hypertension Asthma Venous reflux Surgical History Surgical History H/O thyroidectomy (05/29/22) History of tubal ligation History of ear, nose, and throat (ENT) surgery (~2013) sinus cautery History of hysterectomy, supracervical (07/25/10) History of endometrial ablation (01/04/10) hscope novasure ablation History of dilation and curettage (12/07/09) hscope d&c/polypectomy x3 others History of right hip replacement (01/03/21) History of sleeve gastrectomy (06/23/20) 240 lb weight loss History of foot surgery Hammer Toe 2002 History of fusion of cervical spine History of cholecystectomy History of knee surgery PCL reconstruction 01/12/15 Dr. Sommer H/O colonoscopy with polypectomy 03/24/02 Family History Family History Father Acute myocardial infarction Myocardial infarction Hypertension Grandparent Diabetes mellitus Carcinoma of colon Mother Lung cancer COPD (chronic obstructive pulmonary disease) Sibling Lung cancer Other Family history of cardiovascular disease Social History Social History Social History: Patient lives in [place] with her . She used to smoke up to 3 packs of cigarettes per day but quit smoking 2008. She denies history of heavy alcohol use. She does smoke marijuana daily. She reports that she has been disabled for 20 or 30 years. Code status: Full code Surrogate decision maker: Smoking packs per day: 3 Smoking cigarettes per day: 60.0 Years smoked: 37 Smoking pack-years: 111.00 Smoking status: Former smoker Smoking end date: 06/22/08 Additional smoking assessment comments: 2-3 packs a day Alcohol intake: former Substance use: current Substance use type: marijuana Other substance usage details: medical marijuana Last use: daily Do You Feel Safe in your Home?: No Lack of Transportation: No Lack of Food: Never True Current Housing: I Have Housing Concerned About Future Housing: No Difficulty Paying Gas/Electric Bills: No Difficulty Paying for Meds: No Currently Unemployed: No Education: Trade/Vocational Certificate Difficulty w/ Childcare or Family Care: No Living arrangements: other Additional living arrangements comments: Occupation/Education: unemployed Additional occupation/education comments: disabled Gender identity (if verbalized by the patient): Female Sexual Orientation (if Verbalized by the Patient): Straight or Heterosexual Spiritual care concerns: No Meds Home Medications and Allergies Home Medications Medication Instructions Recorded Confirmed Type calcium citrate 200 mg PO DAILY 09/26/20 08/01/24 History hydrocodone 10 mg-acetaminophen 1 tablet PO Q4-6H PRN pain (scale 02/12/21 08/01/24 Rx 325 mg tablet score 7-10) #180 tabs cyclobenzaprine 10 mg tablet 10 mg PO .qd 09/07/21 08/01/24 History duloxetine 60 mg capsule,delayed 60 mg PO DAILY #90 caps 09/07/21 08/01/24 Rx release spironolactone 25 mg tablet 25 mg PO DAILY 07/08/22 08/01/24 History levothyroxine 100 mcg capsule 112 mcg PO DAILY 11/04/22 08/01/24 History rosuvastatin 20 mg tablet 20 mg PO DAILY 11/04/22 08/01/24 History tiotropium bromide 18 mcg capsule 1 cap inhalation DAILY 11/03/23 08/01/24 History with inhalation device (Spiriva with HandiHaler) ropinirole 1 mg tablet See Rx Instructions .Route 04/30/24 08/01/24 Rx .COMPLEX #100 tabs ropinirole 3 mg tablet See Rx Instructions .Route 04/30/24 08/01/24 Rx .COMPLEX #100 tabs albuterol 90 mcg-budesonide 80 2 inh inhalation Q6H PRN shortness 08/01/24 08/01/24 History mcg/actuation HFA aerosol inhaler of breath (Airsupra) estradiol 0.01% (0.1 mg/gram) 1 g vaginal 3XW PRN hormones 08/01/24 08/01/24 History vaginal cream gabapentin 100 mg capsule 100 mg PO BID 08/01/24 08/01/24 History potassium chloride 20 mEq 20 meq PO DAILY 08/01/24 08/01/24 History tablet,extended release(part/cryst) Allergies Allergy/AdvReac Type Severity Reaction Status Date / Time poison [place] extract Allergy Severe Rash Verified 05/08/24 13:12 adhesive tape AdvReac Mild Rash Verified 05/08/24 13:12 bacitracin (From Neosporin AdvReac Mild Rash Verified 05/08/24 13:12 ([id number])) neomycin (From Neosporin AdvReac Mild Rash Verified 05/08/24 13:12 ([id number])) polymyxin B (From Neosporin AdvReac Mild Rash Verified 05/08/24 13:12 ([id number])) Vital Signs Vital Signs - 24 hr 07/31/24 19:29 07/31/24 19:51 07/31/24 19:52 Temperature 36.9 C Pulse Rate 72 77 Respiratory Rate 10 L 19 16 Blood Pressure 145/81 H 145/81 H Pulse Oximetry 95 98 Oxygen Delivery Room Air Room Air 07/31/24 19:52 07/31/24 19:57 07/31/24 20:00 Temperature Pulse Rate 69 70 Respiratory Rate 15 Blood Pressure Pulse Oximetry 100 99 94 Oxygen Delivery Room Air 07/31/24 20:15 07/31/24 20:30 07/31/24 20:45 Temperature Pulse Rate 87 60 85 Respiratory Rate 13 10 L 17 Blood Pressure Pulse Oximetry 98 98 96 Oxygen Delivery 07/31/24 21:00 07/31/24 21:30 07/31/24 22:01 Temperature Pulse Rate 62 85 79 Respiratory Rate 16 24 H 14 Blood Pressure 147/71 H 127/57 L Pulse Oximetry 100 97 93 Oxygen Delivery 07/31/24 23:01 07/31/24 23:02 07/31/24 23:15 Temperature Pulse Rate 64 59 L 67 Respiratory Rate 18 15 23 H Blood Pressure 126/80 Pulse Oximetry 99 99 90 Oxygen Delivery 07/31/24 23:30 07/31/24 23:31 07/31/24 23:45 Temperature Pulse Rate 73 61 63 Respiratory Rate 15 16 Blood Pressure 131/64 Pulse Oximetry 97 99 100 Oxygen Delivery 08/01/24 00:00 08/01/24 00:01 08/01/24 00:15 Temperature Pulse Rate 54 L 61 53 L Respiratory Rate 8 L 11 L 20 Blood Pressure 137/84 Pulse Oximetry 99 100 99 Oxygen Delivery 08/01/24 00:30 08/01/24 00:31 08/01/24 00:45 Temperature Pulse Rate 52 L 49 L 48 L Respiratory Rate 10 L 10 L 8 L Blood Pressure 129/76 Pulse Oximetry 100 98 100 Oxygen Delivery 08/01/24 01:02 08/01/24 01:03 08/01/24 02:37 Temperature Pulse Rate 52 L 52 L 63 Respiratory Rate 10 L 11 L 10 L Blood Pressure 142/74 H 144/75 H Pulse Oximetry 100 100 98 Oxygen Delivery 08/01/24 03:01 08/01/24 04:15 Temperature Pulse Rate 63 Respiratory Rate 11 L Blood Pressure 163/86 H Pulse Oximetry 100 Oxygen Delivery Room Air Exam 2 Narrative: General: Pt is alert awake and in NAD Lungs/Chest: Trachea central Clear BS B/L, No crackles or wheezing. Cardiac: RRR. Normal S1 S2. No murmurs Circulation: Pedal pulses are intact and symmetrical. Abdomen: Normal bowel sounds.. Soft. NT. ND. Extremities: No clubbing, cyanosis or edema. Warm : Watts in place Neurologic: Follows commands. Moves all 4 extremities PERRL Skin: No Rash HEENT: conjunctival injection of the right side Results Labs 08/01/24 06:27 08/01/24 06:27 Labs: Impressions Chest X-Ray 07/31/24 20:06 IMPRESSION: No acute cardiopulmonary pathology. Short CBC 07/31/24 08/01/24 Range/Units 20:01 06:27 WBC 4.6 3.6 L (4.5-10.0) K/mm3 Hgb 13.5 14.6 (12.0-15.0) g/dL Hct 42.7 46.6 (37.0-47.0) % Plt Count 118 L D 101 L (150-375) k/mm3 BMP 07/31/24 08/01/24 08/01/24 20:01 01:40 06:27 Sodium 141 144 144 Potassium 2.4 L* 3.1 L 3.1 L Chloride 105 107 104 Carbon Dioxide 29 29 33 H BUN 11 9 6 L Creatinine 0.66 L 0.61 L 0.51 L Glucose 120 H 111 H 117 H Calcium 8.1 L 8.1 L 8.4 Cardiac Enzymes 07/31/24 07/31/24 Range/Units 20:01 22:28 Total Creatine Kinase 127 (30-135) U/L Troponin I < 0.012 < 0.012 (0.000-0.034) ng/mL Liver Function 07/31/24 08/01/24 08/01/24 Range/Units 20:01 01:40 06:27 Total Bilirubin 0.8 0.7 0.6 (0.2-1.3) mg/dL AST 61 H 350 H 284 H (14-36) U/L ALT 58 H 186 H 201 H (6-35) U/L Alkaline Phosphatase 132 H 166 H 26 L (38-126) U/L Albumin 3.7 4.0 3.9 (3.5-5.1) g/dL Urine 07/31/24 Range/Units 20:01 Urine Color Yellow (Yellow) Urine Appearance Clear (Clear) Urine pH 6.0 (5.0-9.0) Ur Specific [place] 1.020 (1.001-1.035) Urine Protein Trace (Negative) mg/dL Urine Glucose (UA) Negative (Negative) mg/dL
[2024-08-01] MEDS: ONDANSETRON INJ 4 MG/2 ML VIAL IV PUSH (09:33)
[2024-08-01] MEDS: DULoxetine HCL 60 MG CAPSULE.DR PO (09:35)
[2024-08-01] MEDS: GABAPENTIN 100 MG CAPSULE PO ×2 (09:35→18:23)
[2024-08-01] MEDS: HEPARIN SODIUM 5,000 UNITS/ML VIAL 5000 UNITS SUB-Q ×2 (09:35→20:47)
[2024-08-01] MEDS: rOPINIRole HCL 1 MG TABLET PO (09:40)
[2024-08-01] MEDS: LEVOTHYROXINE SODIUM 112 MCG TABLET PO (09:46)
[2024-08-01 09:53] LABS: Hepatitis B Surface Antigen Negative (Negative)
[2024-08-01 09:59] LABS: HAV RESULT Negative (Negative); Hepatitis B Core IgM Result Negative (Negative)
[2024-08-01 10:11] LABS: Hepatitis C Virus Antibody Negative (Negative)
--- NOTE | 2024-08-01 10:42 | PM.IMPN ---
Progress Note: A&P Assessment and Plan (1) Acetaminophen poisoning: Qualifiers: Encounter type: initial encounter Injury intent: intentional self-harm Qualified Code(s): T39.1X2A - Poisoning by 4-Aminophenol derivatives, intentional self-harm, initial encounter Code(s): T39.1X1A - Poisoning by 4-Aminophenol derivatives, accidental (unintentional), initial encounter Status: Acute Assessment and Plan: patient presented with intentional overdose of [place]. no symptoms signs opioid overdose but patient did had elevated acetaminophen level along with elevated LFTs. Now patient does have history of epic liver disease and is also on statin hence LFT elevation i could be multifactorial. After discussion with poison Control it was resumed the patient may have histamine fun toxicity hence patient was started on N-acetylcysteine which will be continued. Repeat acetaminophen level shows dropping to a low level and I will recheck later in the evening. AST and elevated remained elevated although at lower levels. Patient also has elevated alkaline phosphatase. Repeat liver enzymes laying later in the evening check viral hepatitis panel and right upper quadrant ultrasound hold statin (2) Intentional overdose: Qualifiers: Encounter type: initial encounter Qualified Code(s): T50.902A - Poisoning by unspecified drugs, medicaments and biological substances, intentional self-harm, initial encounter Code(s): T50.902A - Poisoning by unspecified drugs, medicaments and biological substances, intentional self-harm, initial encounter Status: Acute Assessment and Plan: intentional overdose with [place] as a suicide attempt. She has history of depression but currently not on any treatment. Continue suicide precautions with one-to-one sitter at this time psychiatry evaluation once medically improved (3) Depression: Code(s): F32.9 - Major depressive disorder, single episode, unspecified Status: Acute Assessment and Plan: see above (4) Hypothyroidism: Code(s): E03.9 - Hypothyroidism, unspecified Status: Acute Assessment and Plan: continue levothyroxine. TSH in normal range (5) GERD (gastroesophageal reflux disease): Code(s): K21.9 - Gastro-esophageal reflux disease without esophagitis Status: Acute Assessment and Plan: Protonix (6) Elevated LFTs: Code(s): R79.89 - Other specified abnormal findings of blood chemistry Status: Acute Assessment and Plan: see above (7) Hypokalemia: Code(s): E87.6 - Hypokalemia Status: Acute Assessment and Plan: potassium replacement and repeat electrolyte check ordered (8) COPD (chronic obstructive pulmonary disease): Qualifiers: COPD type: unspecified COPD Qualified Code(s): J44.9 - Chronic obstructive pulmonary disease, unspecified Code(s): J44.9 - Chronic obstructive pulmonary disease, unspecified Status: Acute Assessment and Plan: not in exacerbation bronchodilators Subjective Date/time seen: 08/01/24 10:42 Interval history: Patient denies any suicidal ideation. 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 Her last visit with pain management within 2 weeks. Patient reports of ingesting [place]. Ordered psychiatric consult pending evaluation Review of Systems Review of Systems: 12 systems were reviewed with pertinent positives and negatives per HPI. Except as documented in the HPI, all other systems were reviewed and are negative. All systems reviewed & are unremarkable except as noted in HPI and below ( HPI) Exam Narrative: General: Pt is alert awake and in NAD Lungs/Chest: Trachea central Clear BS B/L, No crackles or wheezing. Cardiac: RRR. Normal S1 S2. No murmurs Circulation: Pedal pulses are intact and symmetrical. Abdomen: Normal bowel sounds.. Soft. NT. ND. Extremities: No clubbing, cyanosis or edema. Warm : Watts in place Neurologic: Follows commands. Moves all 4 extremities PERRL Skin: No Rash HEENT: conjunctival injection of the right side Const: Other: No acute distress, appears stated age, height weight proportionate HENMT: Other: Mucous membranes are dry, no oral pharyngeal erythema, head is normocephalic atraumatic Eyes: Other: Pupils are equal and reactive, no scleral icterus, no conjunctival pallor Neck: Other: No JVD, no palpable thyroid Resp: Other: Clear to auscultation bilaterally, no increased work of breathing Cardio: Other: Regular rate, regular rhythm, no murmurs GI: Other: Soft, nontender, nondistended, no hepatosplenomegaly Skin: Other: Multiple areas of bruising all of different stages, large amounts of redundant skin and consistent with patient's history of prior weight loss surgery Neuro: Other: Alert oriented x4, speech is clear but pressured, no localizing neurologic deficits noted during the course of conversation Extrem: Other: No clubbing, no edema, patient has violaceous discoloration of the toes of the left foot which she reports is chronic she has postsurgical changes of the 2nd and 3rd toe of the left foot and a lump on the top of her left foot that she states is related to her recent surgery. She is post follow-up with the surgeon next week. Psych: Other: Pressured speech, Objective Data Vital Signs Vital Signs: Vital Signs - 24 hr 07/31/24 19:29 07/31/24 19:51 07/31/24 19:52 Temperature 98.5 F Pulse Rate 72 77 Respiratory Rate 10 L 19 16 Blood Pressure 145/81 H 145/81 H Pulse Oximetry 95 98 Oxygen Delivery Room Air Room Air 07/31/24 19:52 07/31/24 19:57 07/31/24 20:00 Temperature Pulse Rate 69 70 Respiratory Rate 15 Blood Pressure Pulse Oximetry 100 99 94 Oxygen Delivery Room Air 07/31/24 20:15 07/31/24 20:30 07/31/24 20:45 Temperature Pulse Rate 87 60 85 Respiratory Rate 13 10 L 17 Blood Pressure Pulse Oximetry 98 98 96 Oxygen Delivery 07/31/24 21:00 07/31/24 21:30 07/31/24 22:01 Temperature Pulse Rate 62 85 79 Respiratory Rate 16 24 H 14 Blood Pressure 147/71 H 127/57 L Pulse Oximetry 100 97 93 Oxygen Delivery 07/31/24 23:01 07/31/24 23:02 07/31/24 23:15 Temperature Pulse Rate 64 59 L 67 Respiratory Rate 18 15 23 H Blood Pressure 126/80 Pulse Oximetry 99 99 90 Oxygen Delivery 07/31/24 23:30 07/31/24 23:31 07/31/24 23:45 Temperature Pulse Rate 73 61 63 Respiratory Rate 15 16 Blood Pressure 131/64 Pulse Oximetry 97 99 100 Oxygen Delivery 08/01/24 00:00 08/01/24 00:01 08/01/24 00:15 Temperature Pulse Rate 54 L 61 53 L Respiratory Rate 8 L 11 L 20 Blood Pressure 137/84 Pulse Oximetry 99 100 99 Oxygen Delivery 08/01/24 00:30 08/01/24 00:31 08/01/24 00:45 Temperature Pulse Rate 52 L 49 L 48 L Respiratory Rate 10 L 10 L 8 L Blood Pressure 129/76 Pulse Oximetry 100 98 100 Oxygen Delivery 08/01/24 01:02 08/01/24 01:03 08/01/24 02:37 Temperature Pulse Rate 52 L 52 L 63 Respiratory Rate 10 L 11 L 10 L Blood Pressure 142/74 H 144/75 H Pulse Oximetry 100 100 98 Oxygen Delivery 08/01/24 03:01 08/01/24 04:15 Temperature Pulse Rate 63 Respiratory Rate 11 L Blood Pressure 163/86 H Pulse Oximetry 100 Oxygen Delivery Room Air Intake/Output Intake/Output: Intake & Output 07/29/24 07/30/24 07/31/24 08/01/24 23:59 23:59 23:59 23:59 Intake Total 1999 824.5 Balance 1999 824.5 Meds/Results Medications: Active Medications Generic Name Dose Route Start Last Admin Trade Name Martina PRN Reason Stop Dose Admin Cyclobenzaprine HCl 10 mg 08/01/24 21:00 Cyclobenzaprine Hcl 10 Mg Tablet PO HS HORACIO Duloxetine HCl 60 mg 08/01/24 09:00 08/01/24 09:35 Duloxetine Hcl 60 Mg Capsule.Dr PO 60 mg DAILY HORACIO Administration Gabapentin 100 mg 08/01/24 09:00 08/01/24 09:35 Gabapentin 100 Mg Capsule PO 100 mg BID HORACIO Administration Heparin Sodium (Porcine) 5,000 units 08/01/24 09:00 08/01/24 09:35 Heparin Sodium 5,000 Units/Ml Vial SUB-Q 5,000 units Q12HR HORACIO Administration Acetylcysteine 7,250 mg/ 1,036.25 mls @ 64.766 mls/hr 08/01/24 07:30 08/01/24 07:51 Dextrose IVPB 08/01/24 23:29 64.77 mls/hr ONCE ONE Administration Levothyroxine Sodium 112 mcg 08/01/24 06:30 08/01/24 09:46 Levothyroxine Sodium 112 Mcg Tablet PO 112 mcg DAILY@0630 HORACIO Administration Miscellaneous Information 1 each 08/01/24 00:01 Nonformulary Drug (Calcium Citrate 200 Mg (950 Mg) Tablet) We Stock Calcium Carbonate Onl XX 08/31/24 00:00 CLARIFY [facility] Miscellaneous Information 1 each 08/01/24 00:01 Nonformulary Drug (Albuterol-Budesonide [Airsupra] 90-80 Mcg/Actuation Hfa Aerosol Inhaler XX 08/31/24 00:00 CLARIFY [facility]AC[facility] Non-Formulary Medication 2 inhalation 08/01/24 06:57 Albuterol-Budesonide [Airsupra] INHALATION Q6H PRN shortness of breath Non-Formulary Medication 200 mg 08/01/24 09:00 Calcium Citrate PO 08/31/24 08:59 DAILY H[facility]ACIO Ondansetron HCl 4 mg 08/01/24 07:57 08/01/24 09:33 Ondansetron Inj 4 Mg/2 Ml Vial IV PUSH 4 mg Q4H PRN Administration Nausea And Vomiting Potassium Chloride 40 meq 08/01/24 07:55 08/01/24 09:36 Potassium Chloride 20 Meq Packet (For Liquid) PO 08/01/24 11:56 Not Given Q4H HORACIO Ropinirole HCl 1 mg 08/01/24 09:00 08/01/24 09:40 Ropinirole Hcl 1 Mg Tablet PO 1 mg DAILY HORACIO Administration Ropinirole HCl 1 mg 08/01/24 21:00 Ropinirole Hcl 1 Mg Tablet PO HS HORACIO Spironolactone 25 mg 08/01/24 21:00 Spironolactone 25 Mg Tablet PO HS HORACIO Umeclidinium [place] 1 puff 08/01/24 09:00 Umeclidinium [place] 62.5 Mcg Ellipta INHALATION DAILY [facility] Radiology Results: ITS Impressions Chest X-Ray 07/31/24 20:06 IMPRESSION: No acute cardiopulmonary pathology. Labs Labs: Laboratory Results - last 24 hr 07/31/24 07/31/24 08/01/24 20:01 22:28 01:40 WBC 4.6 RBC 4.57 Hgb 13.5 Hct 42.7 MCV 93.4 MCH 29.5 MCHC 31.6 L RDW 12.0 Plt Count 118 L D MPV 10.4 Immature Gran % (Auto) 0.2 Neut % (Auto) 75.1 H Lymph % (Auto) 16.4 L [place] % (Auto) 7.1 Eos % (Auto) 0.6 Baso % (Auto) 0.6 Lymph # (Auto) 0.76 L [place] # (Auto) 0.3 Eos # (Auto) 0.0 Baso # (Auto) 0.0 Abs Immat Gran (auto) 0.01 Absolute Neuts (auto) 3.5 Absolute Nucleated RBC 0.000 Nucleated RBC % 0.0 % Immature Plt Fraction 3.2 PT 15.2 H INR 1.2 APTT 27.7 VBG pH 7.417 H* VBG pCO2 44.8 VBG pO2 42.1 VBG HCO3 28.2 O2 Delivery Device Room air O2 Liters/Min 0.0 FiO2 21 Sodium 141 144 Potassium 2.4 L* 3.1 L Chloride 105 107 Carbon Dioxide 29 29 Anion Gap 7 8 BUN 11 9 Creatinine 0.66 L 0.61 L Estim Creat Clear Calc 74 80 Estimated GFR > 60 > 60 Glucose 120 H 111 H Lactic Acid 1.1 Calcium 8.1 L 8.1 L Phosphorus 3.4 Magnesium 2.0 Total Bilirubin 0.8 0.7 AST 61 H 350 H ALT 58 H 186 H Alkaline Phosphatase 132 H 166 H Total Creatine Kinase 127 Troponin I < 0.012 < 0.012 Total Protein 6.0 L 7.0 Albumin 3.7 4.0 Lipase 75 TSH (Reflex) 1.550 Urine Color Yellow Urine Appearance Clear Urine pH 6.0 Ur Specific [place] 1.020 Urine Protein Trace Urine Glucose (UA) Negative Urine Ketones Trace H Ur Blood (Man) Negative Urine Nitrate Negative Urine Bilirubin Negative Urine Urobilinogen 1.0 Add Ur Microanalysis Reviewed Leukocyte Esterase Rfl Trace H Urine RBC 6-10 H Urine WBC 6-10 H Ur Squamous Epith Cells Few Urine Bacteria None seen Urine Casts 3-5 Urine Mucus Present Salicylates < 1.0 L Urine Opiates Screen Positive A Urine Methadone Screen Negative Acetaminophen 71 H 56 H 32 H Ur Barbiturates Screen Negative Ur Phencyclidine Scrn Negative Ur Amphetamine Screen Negative U Benzodiazepines Scrn Negative Urine Cocaine Screen Negative U Cannabinoids Screen Positive A Ethyl Alcohol < 10 Hepatitis A IgM Ab Hep Bs Antigen Hep B Core IgM Ab Hepatitis C Ab Screen Influenza A (RT-PCR) Negative Influenza B (RT-PCR) Negative RSV (RT-PCR) Negative SARS-CoV-2 RNA (RT-PCR) Negative 08/01/24 06:27 WBC 3.6 L RBC 4.89 Hgb 14.6 Hct 46.6 MCV 95.3 MCH 29.9 MCHC 31.3 L RDW 12.1 Plt Count 101 L MPV 10.9 H Immature Gran % (Auto) 0.3 Neut % (Auto) 68.0 Lymph % (Auto) 23.3 [place] % (Auto) 7.2 Eos % (Auto) 0.6 Baso % (Auto) 0.6 Lymph # (Auto) 0.84 L [place] # (Auto) 0.3 Eos # (Auto) 0.0 Baso # (Auto) 0.0 Abs Immat Gran (auto) 0.01 Absolute Neuts (auto) 2.5 Absolute Nucleated RBC 0.000 Nucleated RBC % 0.0 % Immature Plt Fraction 4.3 PT 16.3 H INR 1.3 APTT 27.3 VBG pH VBG pCO2 VBG pO2 VBG HCO3 O2 Delivery Device O2 Liters/Min FiO2 Sodium 144 Potassium 3.1 L Chloride 104 Carbon Dioxide 33 H Anion Gap 7 BUN 6 L Creatinine 0.51 L Estim Creat Clear Calc 93 Estimated GFR > 60 Glucose 117 H Lactic Acid Calcium 8.4 Phosphorus Magnesium Total Bilirubin 0.6 AST 284 H ALT 201 H Alkaline Phosphatase 26 L Total Creatine Kinase Troponin I Total Protein 7.0 Albumin 3.9 Lipase TSH (Reflex) Urine Color Urine Appearance Urine pH Ur Specific [place] Urine Protein Urine Glucose (UA) Urine Ketones Ur Blood (Man) Urine Nitrate Urine Bilirubin Urine Urobilinogen Add Ur Microanalysis Leukocyte Esterase Rfl Urine RBC Urine WBC Ur Squamous Epith Cells Urine Bacteria Urine Casts Urine Mucus Salicylates Urine Opiates Screen Urine Methadone Screen Acetaminophen Ur Barbiturates Screen Ur Phencyclidine Scrn Ur Amphetamine Screen U Benzodiazepines Scrn Urine Cocaine Screen U Cannabinoids Screen Ethyl Alcohol Hepatitis A IgM Ab Negative Hep Bs Antigen Negative Hep B Core IgM Ab Negative Hepatitis C Ab Screen Negative Influenza A (RT-PCR) Influenza B (RT-PCR) RSV (RT-PCR) SARS-CoV-2 RNA (RT-PCR) Quality VTE Prophylaxis VTE prophylaxis: pharmacologic ordered (Heparin 5000 units subQ q.12 hours) Hospitalist MIPS Advance Care Plan I have confirmed that the patient's Advanced Care Plan is present, code status is documented, or surrogate decision maker is listed in patient medical record.: Yes Medication Reconciliation I have utilized all available resources to obtain, update and review the patients current medications (includes all prescriptions, OTC, herbals, cannabis, and nutritional supplements).: Yes
[2024-08-01] MEDS: UMECLIDINIUM BROMIDE 62.5 MCG ELLIPTA 1 PUFF INHALATION (11:35)
[2024-08-01 18:15] LABS: Acetaminophen < 10 ug/mL (10-30)
[2024-08-01 18:18] LABS: INR 1.2; Prothrombin Time 16.2 Seconds (11.1-14.7)
[2024-08-01 18:20] LABS: Alanine Aminotransferase 130 U/L (6-35); Alkaline Phosphatase 97 U/L (38-126); Anion Gap 4 mmol/L (4-12); Aspartate Amino Transferase 124 U/L (14-36); Bilirubin,Total 0.4 mg/dL (0.2-1.3); Blood Urea Nitrogen 4 mg/dL (7-17); Calcium 8.2 mg/dL (8.4-10.2); Carbon Dioxide 34 mmol/L (22-30); Chloride 104 mmol/L (98-107); Estimated CRCL calculation 96 ml/min; Estimated Glomerular Filt Rate > 60; Glucose 119 mg/dL (65-110); Potassium 2.8 mmol/L (3.4-5.0); Sodium 142 mmol/L (137-145)
[2024-08-01] MEDS: POTASSIUM CHLORIDE INJ 40 MEQ in SODIUM CHLORIDE 0.9% IV 500 ML 130 MEQ IVPB (19:57)
[2024-08-01] MEDS: SPIRONOLACTONE 25 MG TABLET PO (20:46)
[2024-08-01] MEDS: CYCLOBENZAPRINE HCL 10 MG TABLET PO (20:46)
[2024-08-01] MEDS: rOPINIRole HCL 1 MG TABLET 3 MG PO (20:47)
[2024-08-02] VITALS (12 sets, daily range): BP systolic 107–135; BP diastolic 59–94; PULSE 70–120; RESP 13–26; TEMP 36.6–36.9; O2SAT 95–100
[2024-08-02] MEDS: ACETYLCYSTEINE IVPB (01:05)
[2024-08-02] MEDS: DEXTROSE 5% IVPB (01:05)
[2024-08-02] MEDS: POTASSIUM CHLORIDE 20 MEQ ER TABLET 40 MEQ PO ×2 (02:37→08:45)
[2024-08-02 03:45] LABS: Hemoglobin 12.4 g/dL (12.0-15.0); Mean Corpuscular HGB Conc 31.8 g/dl (32-36); Mean Corpuscular Volume 94.4 fl (80-100); Mean Platelet Volume 10.9 fl (7.4-10.4); Platelet Count Result 82 k/mm3 (150-375); Red Blood Count 4.13 M/mm3 (4.2-5.4); Red Cell Distribution Width 12.2 % (11.5-14.5); White Blood Count 2.5 K/mm3 (4.5-10.0)
[2024-08-02 04:05] LABS: Alanine Aminotransferase 112 U/L (6-35); Albumin Level 2.9 g/dL (3.5-5.1); Alkaline Phosphatase 97 U/L (38-126); Anion Gap 1 mmol/L (4-12); Aspartate Amino Transferase 89 U/L (14-36); Bilirubin,Total 0.4 mg/dL (0.2-1.3); Blood Urea Nitrogen 3 mg/dL (7-17); Calcium 8.2 mg/dL (8.4-10.2); Carbon Dioxide 30 mmol/L (22-30); Chloride 109 mmol/L (98-107); Estimated CRCL calculation 104 ml/min; Estimated Glomerular Filt Rate > 60; Glucose 90 mg/dL (65-110); Potassium 3.5 mmol/L (3.4-5.0); Sodium 140 mmol/L (137-145)
[2024-08-02 04:08] LABS: INR 1.3; Prothrombin Time 16.4 Seconds (11.1-14.7)
[2024-08-02] MEDS: LEVOTHYROXINE SODIUM 112 MCG TABLET PO (06:30)
--- NOTE | 2024-08-02 08:44 | PM.IMPN ---
Progress Note: A&P Assessment and Plan (1) Acetaminophen poisoning: Qualifiers: Encounter type: initial encounter Injury intent: intentional self-harm Qualified Code(s): T39.1X2A - Poisoning by 4-Aminophenol derivatives, intentional self-harm, initial encounter Code(s): T39.1X1A - Poisoning by 4-Aminophenol derivatives, accidental (unintentional), initial encounter Status: Acute Assessment and Plan: patient presented with intentional overdose of [place]. no symptoms signs opioid overdose but patient did had elevated acetaminophen level along with elevated LFTs. Now patient does have history of epic liver disease and is also on statin hence LFT elevation i could be multifactorial. After discussion with poison Control it was resumed the patient may have histamine fun toxicity hence patient was started on N-acetylcysteine which will be continued. Repeat acetaminophen level shows dropping to a low level and I will recheck later in the evening. AST and elevated remained elevated although at lower levels. Patient also has elevated alkaline phosphatase. Repeat liver enzymes laying later in the evening negative viral hepatitis panel and right upper quadrant ultrasound showed Status post cholecystectomy. Dilated common bile duct measuring 13 mm. No obstructing stone or cyst mass identified. Consider correlation with MRCP examination. her stamina fun level has become negligible. LFTs are improving although still not normalized. continue NAC through today. Repeat LFT at 2:00 p.m. continue to hold statin (2) Intentional overdose: Qualifiers: Encounter type: initial encounter Qualified Code(s): T50.902A - Poisoning by unspecified drugs, medicaments and biological substances, intentional self-harm, initial encounter Code(s): T50.902A - Poisoning by unspecified drugs, medicaments and biological substances, intentional self-harm, initial encounter Status: Acute Assessment and Plan: intentional overdose with [place] as a suicide attempt. She has history of depression but currently not on any treatment. Continue suicide precautions with one-to-one sitter at this time psychiatry evaluation once medically improved (3) Depression: Code(s): F32.9 - Major depressive disorder, single episode, unspecified Status: Acute Assessment and Plan: see above (4) Hypothyroidism: Code(s): E03.9 - Hypothyroidism, unspecified Status: Acute Assessment and Plan: continue levothyroxine. TSH in normal range (5) GERD (gastroesophageal reflux disease): Code(s): K21.9 - Gastro-esophageal reflux disease without esophagitis Status: Acute Assessment and Plan: Protonix (6) Elevated LFTs: Code(s): R79.89 - Other specified abnormal findings of blood chemistry Status: Acute Assessment and Plan: see above (7) Hypokalemia: Code(s): E87.6 - Hypokalemia Status: Acute Assessment and Plan: potassium replacement and repeat electrolyte check ordered (8) COPD (chronic obstructive pulmonary disease): Qualifiers: COPD type: unspecified COPD Qualified Code(s): J44.9 - Chronic obstructive pulmonary disease, unspecified Code(s): J44.9 - Chronic obstructive pulmonary disease, unspecified Status: Acute Assessment and Plan: not in exacerbation bronchodilators (9) Thrombocytopenia: Code(s): D69.6 - Thrombocytopenia, unspecified Status: Acute Assessment and Plan: patient presented with mild thrombocytopenia at the time of presentation which has slightly worsened. hold heparin monitor (10) UTI (urinary tract infection): Code(s): N39.0 - Urinary tract infection, site not specified Status: Acute Assessment and Plan: Asymptomatic. afebrile. normal WBC UA suggestive of UTI will treat with 3 day course of Bactrim Plan DVT prophylaxis - SCD, heparin on hold due to thrombocytopenia Nutrition - diet ordered Code Status - Full Code Consult PT OT Subjective Date/time seen: 08/02/24 Overnight events reviewed. Afebrile. Patient denies any new complaints she states she has some headache but her nausea vomiting has resolved. She denies any abdominal pain. Patient denies fever, chest pain, shortness of breath, cough, diarrhea, headache or constipation. No dysuria hematuria. She is eager to be discharged. All other systems were reviewed were negative continues to be on NAC infusion other vitals acceptable. Tolerating p.o. diet. Review of Systems Review of Systems: All systems reviewed & are unremarkable except as noted in HPI and below ( HPI) Exam Narrative: General: Pt is alert awake and in NAD Lungs/Chest: Trachea central Clear BS B/L, No crackles or wheezing. Cardiac: RRR. Normal S1 S2. No murmurs Circulation: Pedal pulses are intact and symmetrical. Abdomen: Normal bowel sounds.. Soft. NT. ND. Extremities: No clubbing, cyanosis or edema. Warm : Watts in place Neurologic: Follows commands. Moves all 4 extremities PERRL Skin: No Rash HEENT: conjunctival injection of the right side Objective Data Vital Signs Vital Signs: Vital Signs - 24 hr 08/01/24 10:00 08/01/24 11:39 08/01/24 11:40 Temperature Pulse Rate 63 71 Respiratory Rate 17 20 Blood Pressure 122/72 Pulse Oximetry 98 100 Oxygen Delivery Room Air 08/01/24 12:00 08/01/24 12:00 08/01/24 12:00 Temperature 36.6 C Pulse Rate 62 61 Respiratory Rate 11 L Blood Pressure 124/54 L Pulse Oximetry 99 97 Oxygen Delivery Room Air 08/01/24 14:00 08/01/24 16:00 08/01/24 16:00 Temperature Pulse Rate 78 66 Respiratory Rate 16 Blood Pressure 125/72 Pulse Oximetry 97 99 Oxygen Delivery Room Air 08/01/24 16:00 08/01/24 18:00 08/01/24 20:00 Temperature 36.4 C L 36.9 C Pulse Rate 66 68 69 Respiratory Rate 14 17 14 Blood Pressure 132/50 L 118/72 118/72 Pulse Oximetry 98 97 100 Oxygen Delivery 08/01/24 20:00 08/01/24 20:00 08/01/24 20:35 Temperature Pulse Rate 71 71 Respiratory Rate Blood Pressure Pulse Oximetry Oxygen Delivery Room Air 08/02/24 00:00 08/02/24 04:00 08/02/24 07:56 Temperature 36.7 C 36.6 C Pulse Rate 73 83 72 Respiratory Rate 13 21 H Blood Pressure 107/94 H 113/59 L Pulse Oximetry 96 98 Oxygen Delivery Intake/Output Intake/Output: Intake & Output 07/30/24 07/31/24 08/01/24 08/02/24 23:59 23:59 23:59 23:59 Intake Total 1999 1404.5 1756.25 Balance 1999 1404.5 1756.25 Meds/Results Medications: Active Medications Generic Name Dose Route Start Last Admin Trade Name Freq PRN Reason Stop Dose Admin Cyclobenzaprine HCl 10 mg 08/01/24 21:00 08/01/24 20:46 Cyclobenzaprine Hcl 10 Mg Tablet PO 10 mg HS HORACIO Administration Duloxetine HCl 60 mg 08/01/24 09:00 08/01/24 09:35 Duloxetine Hcl 60 Mg Capsule.Dr PO 60 mg DAILY HORACIO Administration Gabapentin 100 mg 08/01/24 09:00 08/01/24 18:23 Gabapentin 100 Mg Capsule PO 100 mg BID HORACIO Administration Heparin Sodium (Porcine) 5,000 units 08/01/24 09:00 08/01/24 20:47 Heparin Sodium 5,000 Units/Ml Vial SUB-Q 5,000 units Q12HR HORACIO Administration Acetylcysteine 7,250 mg/ 1,036.25 mls @ 64.766 mls/hr 08/01/24 23:30 08/02/24 01:05 Dextrose IVPB 08/02/24 15:29 64.77 mls/hr ONCE ONE Administration Levothyroxine Sodium 112 mcg 08/02/24 06:30 08/02/24 06:30 Levothyroxine Sodium 112 Mcg Tablet PO 112 mcg DAILY@0630 HORACIO Administration Miscellaneous Information 1 each 08/01/24 00:01 Nonformulary Drug (Calcium Citrate 200 Mg (950 Mg) Tablet) We Stock Calcium Carbonate Onl XX 08/31/24 00:00 [facility] Miscellaneous Information 1 each 08/01/24 00:01 Nonformulary Drug (Albuterol-Budesonide [Airsupra] 90-80 Mcg/Actuation Hfa Aerosol Inhaler XX 08/31/24 00:00 [facility] Non-Formulary Medication 2 inhalation 08/01/24 06:57 Albuterol-Budesonide [Airsupra] INHALATION Q6H PRN shortness of breath Non-Formulary Medication 200 mg 08/01/24 09:00 Calcium Citrate PO 08/31/24 08:59 [facility]ILY [facility] Ondansetron HCl 4 mg 08/01/24 07:57 08/01/24 09:33 Ondansetron Inj 4 Mg/2 Ml Vial IV PUSH 4 mg Q4H PRN Administration Nausea And Vomiting Ropinirole HCl 1 mg 08/01/24 09:00 08/01/24 09:40 Ropinirole Hcl 1 Mg Tablet PO 1 mg DAILY HORACIO Administration Ropinirole HCl 3 mg 08/01/24 21:00 08/01/24 20:47 Ropinirole Hcl 1 Mg Tablet PO 3 mg HS HORACIO Administration Spironolactone 25 mg 08/01/24 21:00 08/01/24 20:46 Spironolactone 25 Mg Tablet PO 25 mg HS HORACIO Administration Trimethoprim/Sulfamethoxazole 1 tab 08/02/24 09:00 Sulfamethoxazole/Trimethoprim 800/160 Mg Ds Tablet PO 08/05/24 08:59 Q12HR HORACIO Umeclidinium [place] 1 puff 08/01/24 09:00 08/01/24 11:35 Umeclidinium [place] 62.5 Mcg Ellipta INHALATION 1 puff DAILY HORACIO Administration Radiology Results: ITS Impressions Chest X-Ray 07/31/24 20:06 IMPRESSION: No acute cardiopulmonary pathology. Abdomen Ultrasound 08/01/24 12:10 IMPRESSION: 1: Status post cholecystectomy. Dilated common bile duct measuring 13 mm. No obstructing stone or cyst mass identified. Consider correlation with MRCP examination. Labs Labs: Laboratory Results - last 24 hr 08/01/24 08/01/24 08/02/24 06:27 17:56 03:33 WBC 2.5 L RBC 4.13 L Hgb 12.4 Hct 39.0 MCV 94.4 MCH 30.0 MCHC 31.8 L RDW 12.2 Plt Count 82 L MPV 10.9 H % Immature Plt Fraction 4.0 PT 16.2 H 16.4 H INR 1.2 1.3 Sodium 142 140 Potassium 2.8 L* 3.5 Chloride 104 109 H Carbon Dioxide 34 H 30 Anion Gap 4 1 L BUN 4 L 3 L Creatinine 0.49 L 0.45 L Estim Creat Clear Calc 96 104 Estimated GFR > 60 > 60 Glucose 119 H 90 Calcium 8.2 L 8.2 L Magnesium 2.0 Total Bilirubin 0.4 0.4 Direct Bilirubin 0.0 AST 124 H 89 H ALT 130 H 112 H Alkaline Phosphatase 97 97 Total Protein 6.0 L 5.0 L Albumin 3.0 L 2.9 L Acetaminophen < 10 L Hepatitis A IgM Ab Negative Hep Bs Antigen Negative Hep B Core IgM Ab Negative Hepatitis C Ab Screen Negative Quality VTE Prophylaxis VTE prophylaxis: pharmacologic ordered (Heparin 5000 units subQ q.12 hours)
[2024-08-02] MEDS: DULoxetine HCL 60 MG CAPSULE.DR PO (08:45)
[2024-08-02] MEDS: GABAPENTIN 100 MG CAPSULE PO ×2 (08:45→17:06)
[2024-08-02] MEDS: rOPINIRole HCL 1 MG TABLET PO (08:45)
[2024-08-02] MEDS: UMECLIDINIUM BROMIDE 62.5 MCG ELLIPTA 1 PUFF INHALATION (08:52)
[2024-08-02] MEDS: SULFAMETHOXAZOLE/TRIMETHOPRIM 800/160 MG DS TABLET 1 TAB PO ×2 (10:00→20:27)
--- NOTE | 2024-08-02 11:30 | PC.NURSE ---
This RN spoke with Sanjeev at [facility] regarding patient's condition. Sanjeev was updated with patient's vital signs, lab results, and acetylcysteine infusion progress. New recommendations to obtain Tylenol, AST, & ALT labs 2 hours prior to completion of this bag this evening. Poison Control will call back later this evening for another update. Case #[id number]
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
[2024-08-02 17:40] LABS: Acetaminophen < 10 ug/mL (10-30)
[2024-08-02 18:31] LABS: Alanine Aminotransferase 113 U/L (6-35); Albumin Level 3.7 g/dL (3.5-5.1); Alkaline Phosphatase 109 U/L (38-126); Anion Gap 4 mmol/L (4-12); Aspartate Amino Transferase 77 U/L (14-36); Bilirubin,Total 0.5 mg/dL (0.2-1.3); Blood Urea Nitrogen 4 mg/dL (7-17); Calcium 8.5 mg/dL (8.4-10.2); Carbon Dioxide 33 mmol/L (22-30); Chloride 102 mmol/L (98-107); Estimated CRCL calculation 93 ml/min; Estimated Glomerular Filt Rate > 60; Glucose 94 mg/dL (65-110); Sodium 139 mmol/L (137-145)
--- NOTE | 2024-08-02 18:42 | PC.NURSE ---
This RN spoke with Renee with [facility] regarding patient repeat labs. No new recommendations at this time. Redraw labs in AM, and notify [facility] of those results. Case # [id number]
[2024-08-02] MEDS: CYCLOBENZAPRINE HCL 10 MG TABLET PO (20:27)
[2024-08-02] MEDS: SPIRONOLACTONE 25 MG TABLET PO (20:27)
[2024-08-02] MEDS: rOPINIRole HCL 1 MG TABLET 3 MG PO (20:27)
[2024-08-03 04:02] LABS: Hemoglobin 14.8 g/dL (12.0-15.0); Immature Platelet Fraction Pct 4.4 % (0.9-11.2); Mean Corpuscular HGB Conc 31.5 g/dl (32-36); Mean Corpuscular Hemoglobin 30.3 pg (26-34); Mean Corpuscular Volume 96.1 fl (80-100); Mean Platelet Volume 10.7 fl (7.4-10.4); Platelet Count Result 116 k/mm3 (150-375); Red Blood Count 4.89 M/mm3 (4.2-5.4); Red Cell Distribution Width 12.3 % (11.5-14.5); White Blood Count 3.6 K/mm3 (4.5-10.0)
[2024-08-03 04:16] LABS: Alanine Aminotransferase 110 U/L (6-35); Albumin Level 3.8 g/dL (3.5-5.1); Alkaline Phosphatase 135 U/L (38-126); Anion Gap 3 mmol/L (4-12); Aspartate Amino Transferase 72 U/L (14-36); Bilirubin,Total 0.5 mg/dL (0.2-1.3); Blood Urea Nitrogen 5 mg/dL (7-17); Calcium 8.9 mg/dL (8.4-10.2); Carbon Dioxide 34 mmol/L (22-30); Chloride 103 mmol/L (98-107); Estimated CRCL calculation 78 ml/min; Estimated Glomerular Filt Rate > 60; Glucose 79 mg/dL (65-110); Magnesium 2.1 mg/dL (1.6-2.3); Potassium 4.1 mmol/L (3.4-5.0); Sodium 140 mmol/L (137-145)
[2024-08-03 04:21] LABS: INR 1.1; Prothrombin Time 14.1 Seconds (11.1-14.7)
[2024-08-03] MEDS: LEVOTHYROXINE SODIUM 112 MCG TABLET PO (06:00)
[2024-08-03 08:00] VITALS: BP 107/77; PULSE 91; RESP 16; TEMP 36.6; O2SAT 100
[2024-08-03] MEDS: GABAPENTIN 100 MG CAPSULE PO (08:19)
[2024-08-03] MEDS: DULoxetine HCL 60 MG CAPSULE.DR PO (08:19)
[2024-08-03] MEDS: SULFAMETHOXAZOLE/TRIMETHOPRIM 800/160 MG DS TABLET 1 TAB PO (08:19)
[2024-08-03] MEDS: rOPINIRole HCL 1 MG TABLET PO (08:19)
[2024-08-03] MEDS: UMECLIDINIUM BROMIDE 62.5 MCG ELLIPTA 1 PUFF INHALATION (09:38)
--- NOTE | 2024-08-03 11:34 | P.PNIM_ITS ---
Progress Note: A&P Assessment and Plan (1) Acetaminophen poisoning: Qualifiers: Encounter type: initial encounter Injury intent: intentional self-harm Qualified Code(s): T39.1X2A - Poisoning by 4-Aminophenol derivatives, intentional self-harm, initial encounter Code(s): T39.1X1A - Poisoning by 4-Aminophenol derivatives, accidental (unintentional), initial encounter Status: Acute Assessment and Plan: patient presented with intentional overdose of [place]. no symptoms signs opioid overdose but patient did had elevated acetaminophen level along with elevated LFTs. Liver enzymes elevated and has improved from AST/ALT 124/130 to 72/110 Has prior liver disease from statin Hepatitis viral panel negative, US liver showed cholecystectomy dilated common bile duct 13mm Poison control recommended N-acetylcysteine Today poison control noted that patient can be discharge from Tylenol toxicity standpoint Patient is alert adn oriented x4 noted she is no longer suicidal Psych following patient stable for discharge (2) Intentional overdose: Qualifiers: Encounter type: initial encounter Qualified Code(s): T50.902A - Poisoning by unspecified drugs, medicaments and biological substances, intentional self-harm, initial encounter Code(s): T50.902A - Poisoning by unspecified drugs, medicaments and biological substances, intentional self-harm, initial encounter Status: Acute Assessment and Plan: intentional overdose with [place] as a suicide attempt. She has history of depression but currently not on any treatment. Continue suicide precautions with one-to-one sitter at this time Pysch eval stable from medical standpoint (3) Depression: Code(s): F32.9 - Major depressive disorder, single episode, unspecified Status: Acute Assessment and Plan: see above (4) Hypothyroidism: Code(s): E03.9 - Hypothyroidism, unspecified Status: Acute Assessment and Plan: continue levothyroxine. TSH in normal range (5) GERD (gastroesophageal reflux disease): Code(s): K21.9 - Gastro-esophageal reflux disease without esophagitis Status: Acute Assessment and Plan: Protonix (6) Elevated LFTs: Code(s): R79.89 - Other specified abnormal findings of blood chemistry Status: Acute Assessment and Plan: see above (7) Hypokalemia: Code(s): E87.6 - Hypokalemia Status: Acute Assessment and Plan: Resolved. (8) COPD (chronic obstructive pulmonary disease): Qualifiers: COPD type: unspecified COPD Qualified Code(s): J44.9 - Chronic obstructive pulmonary disease, unspecified Code(s): J44.9 - Chronic obstructive pulmonary disease, unspecified Status: Acute Assessment and Plan: not in exacerbation bronchodilators (9) Thrombocytopenia: Code(s): D69.6 - Thrombocytopenia, unspecified Status: Acute Assessment and Plan: patient presented with mild thrombocytopenia at the time of presentation which has slightly worsened. hold heparin monitor (10) UTI (urinary tract infection): Code(s): N39.0 - Urinary tract infection, site not specified Status: Acute Assessment and Plan: Asymptomatic. afebrile. normal WBC UA suggestive of UTI, urine culture negative will treat with 3 day course of Bactrim Plan DVT prophylaxis - SCD, heparin on hold due to thrombocytopenia Nutrition - diet ordered Code Status - Full Code Subjective Date/time seen: 08/03/24 11:34 Interval history: Comfortable at bedside denies any suicidal ideation and noted she did what she did out of the spur of the moment as she had some issues with her which is currently resolved Review of Systems Review of Systems: 12 systems were reviewed with pertinent positives and negatives per HPI. Except as documented in the HPI, all other systems were reviewed and are negative. All systems reviewed & are unremarkable except as noted in HPI and below ( HPI) Exam 2 Narrative: General: Pt is alert awake and in NAD Lungs/Chest: Trachea central Clear BS B/L, No crackles or wheezing. Cardiac: RRR. Normal S1 S2. No murmurs Circulation: Pedal pulses are intact and symmetrical. Abdomen: Normal bowel sounds.. Soft. NT. ND. Extremities: No clubbing, cyanosis or edema. Warm : Watts in place Neurologic: Follows commands. Moves all 4 extremities PERRL Skin: No Rash HEENT: conjunctival injection of the right side Const: Other: No acute distress, appears stated age, height weight proportionate HENMT: Other: Mucous membranes are dry, no oral pharyngeal erythema, head is normocephalic atraumatic Eyes: Other: Pupils are equal and reactive, no scleral icterus, no conjunctival pallor Neck: Other: No JVD, no palpable thyroid Resp: Other: Clear to auscultation bilaterally, no increased work of breathing Cardio: Other: Regular rate, regular rhythm, no murmurs GI: Other: Soft, nontender, nondistended, no hepatosplenomegaly Skin: Other: Multiple areas of bruising all of different stages, large amounts of redundant skin and consistent with patient's history of prior weight loss surgery Neuro: Other: Alert oriented x4, speech is clear but pressured, no localizing neurologic defic its noted during the course of conversation Extrem: Other: No clubbing, no edema, patient has violaceous discoloration of the toes of the left foot which she reports is chronic she has postsurgical changes of the 2nd and 3rd toe of the left foot and a lump on the top of her left foot that she states is related to her recent surgery. She is post follow-up with the surgeon next week. Psych: Other: Pressured speech, Objective Data Vital Signs Vital Signs: Vital Signs - 24 hr 08/02/24 11:54 08/02/24 12:00 08/02/24 12:00 Temperature 98.1 F Pulse Rate 115 H 97 Respiratory Rate 18 Blood Pressure Pulse Oximetry 100 Oxygen Delivery Room Air 08/02/24 12:00 08/02/24 14:00 08/02/24 14:00 Temperature Pulse Rate 118 H 85 83 Respiratory Rate 15 13 Blood Pressure 135/75 Pulse Oximetry 100 96 Oxygen Delivery Room Air 08/02/24 16:00 08/02/24 16:00 08/02/24 16:00 Temperature 98.4 F Pulse Rate 90 89 120 H Respiratory Rate 15 26 H Blood Pressure 111/65 Pulse Oximetry 98 95 Oxygen Delivery Room Air 08/02/24 18:00 08/02/24 18:00 08/02/24 23:57 Temperature 98.4 F 98.1 F Pulse Rate 74 100 80 Respiratory Rate 18 16 Blood Pressure 108/69 127/65 Pulse Oximetry 100 95 Oxygen Delivery 08/03/24 08:00 08/03/24 08:00 Temperature 97.8 F Pulse Rate 91 Respiratory Rate 16 Blood Pressure 107/77 Pulse Oximetry 100 Oxygen Delivery Room Air Intake/Output Intake/Output: Intake & Output 07/31/24 08/01/24 08/02/24 08/03/24 23:59 23:59 23:59 23:59 Intake Total 1999 1404.5 4232.50 480 Balance 1999 1404.5 4232.50 480 Meds/Results Medications: Active Medications Generic Name Dose Route Start Last Admin Trade Name Freq PRN Reason Stop Dose Admin Cyclobenzaprine HCl 10 mg 08/01/24 21:00 08/02/24 20:27 Cyclobenzaprine Hcl 10 Mg Tablet PO 10 mg HS HORACIO Administration Duloxetine HCl 60 mg 08/01/24 09:00 08/03/24 08:19 Duloxetine Hcl 60 Mg Capsule.Dr PO 60 mg DAILY HORACIO Administration Gabapentin 100 mg 08/01/24 09:00 08/03/24 08:19 Gabapentin 100 Mg Capsule PO 100 mg BID HORACIO Administration Heparin Sodium (Porcine) 5,000 units 08/01/24 09:00 08/02/24 08:47 Heparin Sodium 5,000 Units/Ml Vial SUB-Q Not Given Q12HR HORACIO Levothyroxine Sodium 112 mcg 08/02/24 06:30 08/03/24 06:00 Levothyroxine Sodium 112 Mcg Tablet PO 112 mcg DAILY@0630 HORACIO Administration Ondansetron HCl 4 mg 08/01/24 07:57 08/01/24 09:33 Ondansetron Inj 4 Mg/2 Ml Vial IV PUSH 4 mg Q4H PRN Administration Nausea And Vomiting Ropinirole HCl 1 mg 08/01/24 09:00 08/03/24 08:19 Ropinirole Hcl 1 Mg Tablet PO 1 mg DAILY HORACIO Administration Ropinirole HCl 3 mg 08/01/24 21:00 08/02/24 20:27 Ropinirole Hcl 1 Mg Tablet PO 3 mg HS HORACIO Administration Spironolactone 25 mg 08/01/24 21:00 08/02/24 20:27 Spironolactone 25 Mg Tablet PO 25 mg HS HORACIO Administration Trimethoprim/Sulfamethoxazole 1 tab 08/02/24 09:00 08/03/24 08:19 Sulfamethoxazole/Trimethoprim 800/160 Mg Ds Tablet PO 08/05/24 08:59 1 tab Q12HR HORACIO Administration Umeclidinium [place] 1 puff 08/01/24 09:00 08/03/24 09:38 Umeclidinium [place] 62.5 Mcg Ellipta INHALATION 1 puff DAILY HORACIO Administration Radiology Results: ITS Impressions Chest X-Ray 07/31/24 20:06 IMPRESSION: No acute cardiopulmonary pathology. Abdomen Ultrasound 08/01/24 12:10 IMPRESSION: 1: Status post cholecystectomy. Dilated common bile duct measuring 13 mm. No obstructing stone or cyst mass identified. Consider correlation with MRCP examination. Labs Labs: Laboratory Results - last 24 hr 08/02/24 08/02/24 08/03/24 16:13 17:37 03:45 WBC 3.6 L RBC 4.89 Hgb 14.8 Hct 47.0 MCV 96.1 MCH 30.3 MCHC 31.5 L RDW 12.3 Plt Count 116 L MPV 10.7 H % Immature Plt Fraction 4.4 PT 14.1 INR 1.1 Sodium 139 140 Potassium 4.0 4.1 Chloride 102 103 Carbon Dioxide 33 H 34 H Anion Gap 4 3 L BUN 4 L 5 L Creatinine 0.51 L 0.62 L Estim Creat Clear Calc 93 78 Estimated GFR > 60 > 60 Glucose 94 79 Calcium 8.5 8.9 Magnesium 2.1 Total Bilirubin 0.5 0.5 AST 77 H 72 H ALT 113 H 110 H Alkaline Phosphatase 109 135 H Total Protein 7.0 7.0 Albumin 3.7 3.8 Acetaminophen < 10 L Quality VTE Prophylaxis VTE prophylaxis: pharmacologic ordered (Heparin 5000 units subQ q.12 hours)
--- NOTE | 2024-08-03 15:37 | PM.DS ---
DS: Admitting Diagnosis Discharge Date 08/03/24 Admitting Diagnosis [place] overdose DS: Discharge Diagnosis Discharge Diagnosis (1) Intentional overdose: Qualifiers: Encounter type: initial encounter Qualified Code(s): T50.902A - Poisoning by unspecified drugs, medicaments and biological substances, intentional self-harm, initial encounter Code(s): T50.902A - Poisoning by unspecified drugs, medicaments and biological substances, intentional self-harm, initial encounter Status: Acute (2) Major depressive disorder, recurrent severe without psychotic features: Code(s): F33.2 - Major depressive disorder, recurrent severe without psychotic features Status: Acute (3) Elevated LFTs: Code(s): R79.89 - Other specified abnormal findings of blood chemistry Status: Acute (4) Acetaminophen poisoning: Qualifiers: Encounter type: initial encounter Injury intent: intentional self-harm Qualified Code(s): T39.1X2A - Poisoning by 4-Aminophenol derivatives, intentional self-harm, initial encounter Code(s): T39.1X1A - Poisoning by 4-Aminophenol derivatives, accidental (unintentional), initial encounter Status: Acute DS: Summary Hospital Course Hospital Course: 63-year-old female with a past medical history of COPD, essential hypertension hypothyroidism, chronic pain, anxiety, depression, gastric sleeve with duodenal switch, hepatic steatosis with chronic transaminitis, thyroidectomy among other chronic comorbidities presented to the ER via EMS from a local bar due to intentional [place] overdose. The patient reports that she has been under increased emotional stressors. Her son and [id number] a moved out of the country and have essentially cut ties with the patient. They also left 2 of their children behind and she states that she is worried about her grand children. Her also recently started talking to a celebrity website and she reports he has developed infatuation with the celebrity. He recently told her that he was not in love with her anymore because he wanted to be with the celebrity. CT stated that she had a partial bottle of her [place] and her purse and just took a hand full. She is assuming she had about 30-35 tablets of [place]. She took the tablets around 3:30 p.m.. She then tried to leave the house. Her tried to restrain her from leaving the house because he thought she needed to go to the ER. The patient refused and she managed to evade him and was trying to get into the van. She was crawling around and through the van to try to get into the chair car driver seat so that she could go to the bar to drink some alcohol. She states that she thought if she could drink some alcohol that she would then be able to throw up the pills. When she got to the bar in the power engineer heard the story they subsequently called EMS and did not allow the patient to drink any alcohol. The patient was subsequently brought in for evaluation and treatment. Tylenol level on arrival to the ER was 71 (4.5 hours after initial ingestion). The patient's Tylenol level had trended down during her the ER visit. When poison Control contacted they wanted repeat CMP due to the patient's elevated liver enzymes. The patient's liver enzymes had increased and subsequently patient placed on N-acetylcysteine and admitted. Patient does report that she has been nauseated since a couple of hours after she took the [place]. She reports that she hurts all over and her neck head low back toes knees and ankles. She reports that she has a history of depression but has not been on any antidepressants since [facility] because she could not get to the doctor's office to get her medications refilled. She cannot recall what antidepressants she was on. She has never been hospitalized for depression. She has never had a prior suicide attempt. She states that she no longer wants to hurt herself and regrets her impulsive decision. poison control was contacted from the Er and they recommended NAC for Tylenol toxicity. patient was cleared by poison control for tylenol toxicity today Elevated Liver enzymes mildly improved, will continue outpatient monitoring with PCP, repeat CMP ordered for 08/06/24 Patient was evaluated by psych and crises management today adn was noted not be suicidal, she however declined voluntary committment, and it was noted she is out of the window for involuntary commitment. Psych was reconsulted who evaluated patient and noted that patient can sign suicide contract and follow up outpatient with psych and other outpatient resources given to her. Hypokalemia resolved. Patient denies no dysuria and antibiotics discontinued. Thrombocytopenia improved. F/u with PCP in 3-5 days F/u with Psych and crises management as instructed Encouraged to use resources provided Time Spent with Patient Time attestation: Total time spent providing and/or coordinating discharge services: DS: Data Data Completed and Pending Labs on day of discharge: Labs from last 24 hours 08/03/24 08/02/24 08/02/24 03:45 17:37 16:13 WBC 3.6 L RBC 4.89 Hgb 14.8 Hct 47.0 MCV 96.1 MCH 30.3 MCHC 31.5 L RDW 12.3 Plt Count 116 L MPV 10.7 H % Immature Plt Fraction 4.4 PT 14.1 INR 1.1 Sodium 140 139 Potassium 4.1 4.0 Chloride 103 102 Carbon Dioxide 34 H 33 H Anion Gap 3 L 4 BUN 5 L 4 L Creatinine 0.62 L 0.51 L Estim Creat Clear Calc 78 93 Estimated GFR > 60 > 60 Glucose 79 94 Calcium 8.9 8.5 Magnesium 2.1 Total Bilirubin 0.5 0.5 AST 72 H 77 H ALT 110 H 113 H Alkaline Phosphatase 135 H 109 Total Protein 7.0 7.0 Albumin 3.8 3.7 Acetaminophen < 10 L Discharge Plan Discharge Attending physician on discharge: Taz Garcia Consulting providers: Doug Burger; Moreno Glass Discharging Clinician: Taz Garcia Anticipated Discharge Date/Time: 08/03/24 15:35 Patient Disposition: Home Activity: as tolerated Diet: as tolerated and regular Discharge Instructions: F/u with the instructions of the psych Patient Instructions: Antibiotic Form, Acetaminophen Overdose (DC) Patient Language: Italian Stand Alone Forms: General Discharge Information Follow-up/Referrals: Moreno Glass MD [Physician] - (Walk in clinic hours Friday-Friday 8-4) Discharge Medications: Continued spironolactone 25 mg tablet 25 mg PO DAILY levothyroxine 100 mcg capsule 112 mcg PO DAILY cyclobenzaprine 10 mg tablet 10 mg PO .qd duloxetine 60 mg capsule,delayed release(DR/EC) 60 mg PO DAILY Qty: 90 1RF tiotropium bromide [Spiriva with HandiHaler] 18 mcg capsule, w/inhalation device 1 cap inhalation DAILY Rx Instructions: puncture 1 cap using device; one dose = 2 inhalations calcium citrate 200 mg (950 mg) tablet 200 mg PO DAILY rosuvastatin 20 mg tablet 20 mg PO DAILY Airsupra 90-80 mcg/actuation HFA aerosol inhaler 2 inh INHALATION Q6H PRN (Reason: shortness of breath) Rx Instructions: 1-2 puffs by mouth q6h PRN gabapentin 100 mg capsule 100 mg PO BID Rx Instructions: TAKE 1 CAPSULE BY MOUTH BID potassium chloride 20 mEq tablet,ER particles/crystals 20 meq PO DAILY Rx Instructions: 20 mEq orally 1 tablet p.o. b.i.d. for 3 days and then 1 tablet p.o. q.day; estradiol 0.01 % (0.1 mg/gram) cream 1 g vaginal 3XW PRN (Reason: hormones) hydrocodone-acetaminophen 10-325 mg tablet 1 tablet PO Q4-6H PRN (Reason: pain (scale score 7-10)) Qty: 180 0RF Rx Instructions: To last 30 days, due 02/12/2021 ropinirole 1 mg tablet See Rx Instructions .ROUTE .COMPLEX Qty: 100 1RF Dose Instruction: TAKE 1 TABLET BY MOUTH DAILY Rx Instructions: TAKE 1 TABLET BY MOUTH DAILY ropinirole 3 mg tablet See Rx Instructions .ROUTE .COMPLEX Qty: 100 1RF Dose Instruction: TAKE 1 TABLET BY MOUTH 1 TO 2 HOURS BEFORE BEDTIME Rx Instructions: TAKE 1 TABLET BY MOUTH 1 TO 2 HOURS BEFORE BEDTIME Other Ambulatory Orders: Comprehensive Metabolic Panel (Routine) Timeframe: 3 Days Location: Determined by Patient Ordered By: Taz Garcia Date of admission: 08/01/24 03:02 Primary Care Provider: Dee DeeEddie Admitting Provider: Olamide Flores Attending physician on admission: Olamide Flores Condition: Stable
== END 2024-08-03 15:50 | disposition home or self-care (01) | DRG 918 ==
LOC: ANHED 08-01 02:17 → ANHICU 08-01 03:20
PROVIDERS: Internal Medicine; Admitting Provider Internal Medicine; Emergency Provider Emergency Medicine; PCP Hospitalist; Visit Provider Internal Medicine
DX: T39.1X2A Poisoning by 4-Aminophenol derivatives, intentional self-harm, initial encounter (principal); F33.2 Major depressive disorder, recurrent severe without psychotic features; F41.9 Anxiety disorder, unspecified; R79.89 Other specified abnormal findings of blood chemistry; J44.9 Chronic obstructive pulmonary disease, unspecified; I10 Essential (primary) hypertension; E03.9 Hypothyroidism, unspecified; E87.6 Hypokalemia; D69.6 Thrombocytopenia, unspecified; G89.29 Other chronic pain; K76.0 Fatty (change of) liver, not elsewhere classified; G47.33 Obstructive sleep apnea (adult) (pediatric); G25.81 Restless legs syndrome; M81.0 Age-related osteoporosis without current pathological fracture; M47.816 Spondylosis without myelopathy or radiculopathy, lumbar region; E78.5 Hyperlipidemia, unspecified; M15.9 Polyosteoarthritis, unspecified; M79.7 Fibromyalgia; Z87.891 Personal history of nicotine dependence; Z98.84 Bariatric surgery status; Z90.710 Acquired absence of both cervix and uterus; Z96.641 Presence of right artificial hip joint; Z90.49 Acquired absence of other specified parts of digestive tract; Z98.1 Arthrodesis status
CPT/HCPCS: 36415; 71045; 76705; 80048; 80053; 80074; 80076; 80143; 80179; 80307; 81001; 82077; 82550; 82803; 83605; 83690; 83735; 84100; 84443; 84484; 85025; 85027; 85055; 85610; 85730; 87086; 87637; 93005; 94640; 96361; 96365; 96366; 97161; 97165; 99285; A9270; J0132; J1644; J2405; J3480; J7030; J7040; J7060; J7070

== ENCOUNTER 2024-08-10 16:29 | Emergency (ER) | payer MEDICARE, MEDICAID, SELFPAY ==
--- NOTE | ~2024-08-10 | CT_ITS ---
EXAMINATION: CT abdomen pelvis w con DATE: 08/10/2024 19:31 INDICATION: n/v, pain TECHNIQUE: Computed tomography (CT) of the abdomen and pelvis was performed with 100 mL Omnipaque-350 intravenous contrast. Automated exposure control and iterative reconstruction technique were employe d. The dose-length product was 336.78 mGy-cm. COMPARISON: None. FINDINGS: Lower thorax: Unremarkable Liver: Diffusely low-density parenchyma. Biliary/Gallbladder: Gallbladder is absent. No inflammatory change. Mild bile duct dilation, presumab ly secondary to cholecystectomy Pancreas: No mass or duct dilation. Spleen: Normal. Adrenals:No mass. Kidneys: Mild left hydronephrosis. 6 x 13 mm calcification in the proximal left ureter. Ectopic right kidney. GI tract: Prior gastric surgery. Mild distal esophageal and gastric wall edema. Short segment intussu sception at a small bowel anastomosis in the right upper quadrant. Second and third moderate length s mall bowel intussusceptions small bowel is noted in the lower abdomen. No small or large bowel dilati on. Normal-appearing cecum with minimal content. The remainder of the large bowel is empty, with mild wall edema and loss of haustration. Mild wall thickening in the terminal ileum. Normal appendix. Div erticulosis without diverticulitis. Mesentery/Peritoneum: No ascites, mass, or free air. Retroperitoneum: No mass. Atherosclerotic calcifications of intra-abdominal arterial vessels. Pelvis: Absent uterus. Normal ovaries. Normal urinary bladder. Pelvic contents are partially obscured by metal artifact. Soft Tissues: Soft tissues and body wall unremarkable. Bones: No acute osseous finding. Uncomplicated appearing partially visualized right hip arthritis pl asty hardware. IMPRESSION: Hepatic steatosis. 6 x 13 mm calcification in the proximal left ureter causing mild obstructive uropathy. Moderate esophagitis/gastritis. At least 3 small bowel intussusceptions are noted, typically these findings are incidental. Colonic and distal small bowel findings may be related to infectious, inflammatory, or ischemic colit is/enteritis. Reviewed, dictated and finalized at location K. IMPRESSION: Hepatic steatosis. 6 x 13 mm calcification in the proximal left ureter causing mild obstructive ur opathy. Moderate esophagitis/gastritis. At least 3 small bowel intussusceptions are noted, typically these findings are incidental. Colonic and distal small bowel findings may be related to infectious, inflammat ory, or ischemic colitis/enteritis.
[2024-08-10 16:32] VITALS: BP 150/83; PULSE 80; RESP 20; TEMP 30; O2SAT 98
--- OUTSIDE RECORDS SUMMARY | 2024-08-10 16:33 | XMS_ITS | Patient Health Record ---
Author Organization [facility] Address [address] [place] [address] Care Team Providers Care Felting Machine Operator Helper Name Role Phone Irina Green Primary Care Provider [phone] Emmie Guevara Unavailable [phone] Allergies Allergen (clinical drug ingredient) Drug/Non Drug Allergy documented on EMR Reaction Allergy Type Onset Date Status Neosporin rash Drug Allergy Active Adhesive hives Allergy Active Reason For Referral No Information Medications Medication SIG (Take, Route, Frequency, Duration) Notes Start Date End Date Status ARIPiprazole 5 MG 1 tablet Orally Once a day for 30 day(s) 08/09/2024 Active Rosuvastatin Calcium 20 MG 1 tablet Oral ly Once a day Active Mupirocin Calcium 2 % as directed Externally Active Calcium Citrate 950 (200 Ca) MG 1 tablet Orally Once a day Active Spironolactone 25 MG 1 tablet Orally Active Bariatric Multivitamins/Iron - as directed Orally Active DULoxetine HCl 60 MG 1 capsule Orally On ce a day Active Estradiol 0.1 MG/GM as directed Vaginal Active Cyclobenzaprine HCl 10 MG 1 tablet at be dtime as needed Orally Once a day Active HYDROcodone-Acetaminophen 10-325 MG 1 tablet as needed Orally every 6 hrs Active Gabapentin 100 MG as directed Orally twice a day Active Losartan Potassium 50 MG 1 tablet Orally Once a day Active Levothyroxine Sodium 112 MCG 1 tablet in the morning on an empty stomach Orally Once a day Active rOPINIRole HCl 1 MG 1 tablet 1 to 3 hour s before bedtime Orally Once a day Active rOPINIRole HCl 3 MG 1 tablet 1 to 3 hour s before bedtime Orally Once a day Active Albuterol Sulfate HFA 108 (9 0 Base) MCG/ACT 2 puffs PRN Inhalation every 4 hrs Active Social History Tobacco Use: Social History Observation Description Date Details (start date - stop date) Former Smoker 08/09/1972 - 07/09/2008 Tobacco Control (Standard) Question Answer Notes Tobacco use: Former smoker When did you start smoking? 08/09/1972 When did you stop smoking? 07/09/2008 Problems Problem Type SNOMED Code ICD Code Onset Dates Problem Status W/U Status Risk Notes Problem Depression (353640059) Depression (F32.9) Active confirmed Problem Over weight (E66.3) Active confirmed Vital Signs Heart Rate 75 /min 08/09/2024 Temperature 97.9 degrees Fahrenheit 08/09/2024 Respiratory Rate 16 /min 08/09/2024 Oximetry 99 % 08/09/2024 Blood pressure diastolic 70 mm Hg 08/09/2024 Height 64 in in 08/09/2024 Blood pressure systolic 100 mm Hg 08/09/2024 Weight 156 lbs 08/09/2024 BMI 26.77 kg/m2 08/09/2024 Encounters Encounter Location Date Provider Diagnosis [address] [address] 08/09/2024 Irina Green Depression F32.9 and Over weight E66.[address] [address] 08/09/2024 Emmie Guevara [address] [address] 08/09/2024 Irina Green Assessments Encounter Date Diagnosis (ICD Code) Assessment Notes Treatment Notes Treatment Clinical Notes Section Notes 08/09/2024 Depression (ICD-10 - F32.9) Start Abilify. Take as prescribed. Reviewed purpose (mood stability), benefits, and risks - low blood pressure, metabolic syndrome with high cholesterol or high blood sugars, change in cardiac conduction, nausea, vomiting, temporary or permanent movement disorders, and akathisia. 08/09/2024 Over weight (ICD-10 - E66.3) 08/09/2024 Other Warm handoff to health navigator completed. Plan Of Treatment No Information Insurance Providers Payer Name Payer Address Payer Phone Subscriber Number Group Number Insured Name Patient Relationship to Insured Coverage Start Date Coverage End Date [employer] Medicare [address] [address] [place] [phone] [id number] Flor Gallego Self - patient is the insured 5 MEDICAID [address] [place] [address] [id number] Flor Gallego Self - patient is the insured 5 Medical (General) History Surgical History Surgery Date(Month/Year) left foot - bone spur 2024 Hospitalization History Reason Date(Month/Year) [facility] 07/2024
--- OUTSIDE RECORDS SUMMARY | 2024-08-10 16:33 | XMS_ITS ---
Author Organization [facility] Address [address] [place] [address] Care Team Providers Care Type Caster Name Role Phone Irina Green Primary Care Provider [phone] Emmie Guevara Unavailable [phone] REASON FOR VISIT CM ([facility] intake for therapy with client) Encounters Encounter Location Date Provider Diagnosis [address] [place] [address] 08/09/2024 Emmie Guevara Plan Of Treatment No Information Progress Notes * Kathryn LOZANOnelly DickersonDOB:1960 (63 yo F)Acc No.[id number]:08/09/2024 Patient: Flor MARCELINO Provider: Linda Guevara :1960 A ge:63 Y S ex:Female Date:08/09/2024 Address:[address] [place], [place] [id number] Pcp:Irina Green Subjective: * Chief Complaints: * C M ([facility] intake for therapy with client) * HPI: I nitial: Issues discussed: Orquidea nobles'charli provider asked if the HN could assist the client with calling [facility] to complete the intake and to get her first appointment scheduled for therapy. Client and HN called [facility] to complete this task.. S trengths: . . G oal/Objective: . . C elayne's action: H N assisted the client with calling [facility] to complete the intake for therapy. Client met with the HN in person after her appointment with William Green.. Patient's response: Nae lara and HN called [facility] to complete the intake for therapy and to complete the intake for therapy.. * Medical History: * Medications: Objective: * Vitals: Assessment: Plan: * Treatment: * Procedure Codes: T 1016 CASE MANAGEMENT EACH 15 MINS * * Sign off status: Completed true * Provider: Linda Guevara Date: 08/09/2024 Generated for [place]/Mello on: 08/10/2024 04:33 PM CDT History and Physical Notes * HPI (History of Present Illness) Category Sub-Category Detail Notes Category Not es Initial Issues discussed: Pt's provider asked if the HN could assist the client with calling [facility] to complete the intake and to get her first appointment scheduled for therapy. Client and HN called [facility] to complete this task. Goal/Objective: . Counselor's action: HN assisted the clie nt with calling [facility] to complete the intake for therapy. Client met with the HN in person after her appointment with William Green. Patient's response: Client and HN called [facility] to complete the intake for therapy and to complete the intake for therapy. Strengths: .
--- OUTSIDE RECORDS SUMMARY | 2024-08-10 16:33 | XMS_ITS | Clinical Summary ---
Author Organization 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 Not on file Not on file [...] this topic Medical Devices Implanted Type Area Grab Jack Man Device Identifier Shelf Expiration Date Model / Serial / Lot Tissue Placental Matrix Flowable Viaflow 2.0cc - [id number] Implanted:Qty: 1 on 10/09/2023 by Yamilex Beyer DPM at [facility] IMPLANT Left: Ankle [employer] 04/17/2028 AMAF-0020 / AMAF-0020 / [id number] 2.5 Headles Screw Size 20 Implanted:Qty: 2 on 11/19/2022 by Yamilex Beyer DPM at [facility] Left: Foot AR-8725-20 H / AR-8725-20 H / AR-8725-20 H Explanted Type Area Grab Jack Man Device Identifier Shelf Expiration Date Model / Serial / Lot 2.5 Headless Screw Size 12 Implanted:Qty: 2 on 11/19/2022 by Yamilex Beyer DPM at [facility] Explanted:Qty: 2 on 05/22/2023 by Yamilex Beyer DPM at [facility] Left: Foot ARTHREX AR-8725-12H / AR-8725-12H / AR-8725-12H Insurance MEDICAID [place] MEDICARE C [employer] Care Teams Tip Cementer Relationship Specialty Start Date End Date Mary Diaz MD [address] [facility] [place] [address] PCP - General Family Medicine 06/30/22
--- OUTSIDE RECORDS SUMMARY | 2024-08-10 16:34 | XMS_ITS | Encounter Summary ---
Author Organization [facility] Address [address] [place] [address] Care Team Providers Care Motor And Generator Assembler Name Role Phone Malathi Perez MD Primary Care Provider [phone] Encounter Details Date Type Department Care Team (Late st Contact Info) Description 04/27/2003 Outpatient Historical [facility] Primary Care - [address] [place] [address] Cody Rubio MD [address] [facility] [address] [place] [address] Social History Tobacco Use Types Packs/Day Years Used Date Smoking Tobacco: Never Assessed Comments Unknown Sex and Gender Information Value Date Recorded Sex Assigned at Not on file Legal Sex Female 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
--- OUTSIDE RECORDS SUMMARY | 2024-08-10 16:34 | XMS_ITS | Clinical Summary ---
Author Organization [facility] Kathrine Mcintosh Address [address] [place] [address] Care Team Providers Care Saturator Operator Name Role Phone Malathi Perez MD Primary Care Provider [phone] Allergies No known active allergies Medications MELATONIN [...] 20 Active fluticasone propionate (FLONASE) 50 mcg/spray [place], Suspension nasal inhaler Administer 1 Mesa in each nostril. Active gabapentin (NEURONTIN) 100 [...] file Legal Sex Female 5:18 AM UNIVERSAL GRINDER TOOL Gender Identity Not on file Sexual Orientation [...] Td or Tdap) 01/10/2030 Insurance Care Teams Saturator Operator Relationship Specialty Start Date End Date Malathi Perez MD PCP - General Family Practice 02/25/20
--- OUTSIDE RECORDS SUMMARY | 2024-08-10 16:34 | XMS_ITS | Encounter Summary ---
Author Organization [facility] Address [address] [place] [address] Care Team Providers Care Line Haul Owner Operator Name Role Phone Malathi Perez MD Primary Care Provider [phone] Encounter Details Date Type Department Care Team (Late st Contact Info) Description 11/25/2002 Outpatient Historical [facility] Primary Care - [address] [place] [address] Cody Rubio MD [address] [facility] [address] [place] [address] Social History Tobacco Use Types Packs/Day Years Used Date Smoking Tobacco: Never Assessed Comments Unknown Sex and Gender Information Value Date Recorded Sex Assigned at Not on file Legal Sex Female 5:18 AM CLINICAL REHABILITATION SPECIALIST Gender Identity Not on file Sexual Orientation Not on file documented as of this encounter Plan of Treatment Not on file documented as of this encounter Visit Diagnoses Not on filedocumented in this encounter Care Teams Line Haul Owner Operator Relationship Specialty Start Date End Date Malathi Perez MD PCP - General Family Practice 02/25/20 documented as of this encounter
--- OUTSIDE RECORDS SUMMARY | 2024-08-10 16:34 | XMS_ITS | Encounter Summary ---
Author Organization [facility] Address 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
--- OUTSIDE RECORDS SUMMARY | 2024-08-10 16:34 | XMS_ITS | Encounter Summary ---
Author Organization [facility] Address [address] [place] [address] Care Team Providers Care Manager Balance Name Role Phone Malathi Perez MD Primary Care Provider [phone] Encounter Details Date Type Department Care Team (Late st Contact Info) Description 12/27/2002 Outpatient Historical [facility] Tai Mariano MD [address] [place] [address] Dr VARMA [address] [place] [address] REFLUX ESOPHAGITIS (Primary Dx) Social History Tobacco Use Types Packs/Day Years Used Date Smoking Tobacco: Never Assessed Comments Unknown Sex and Gender Information Value Date Recorded Sex Assigned at Not on file Legal Sex Female 5:18 AM DESTINATION SPECIALIST Gender Identity Not on file Sexual Orientation Not on file documented as of this encounter Plan of Treatment Not on file documented as of this encounter Visit Diagnoses Diagnosis Reflux esophagitis- Primary documented in this encounter Care Teams Manager Balance Relationship Specialty Start Date End Date Malathi Perez MD PCP - General Family Practice 02/25/20 documented as of this encounter
--- OUTSIDE RECORDS SUMMARY | 2024-08-10 16:34 | XMS_ITS | Encounter Summary ---
Author Organization [facility] Address [address] [place] [address] Care Team Providers Care Regional Economic Liaison Name Role Phone Malathi Perez MD Primary Care Provider [phone] Encounter Details Date Type Department Care Team (Late st Contact Info) Description 04/03/2003 Outpatient Historical [facility] Marshal Gonsalves MD [place] [address] Er, Authorized P NO ADDRESS ON FILE DERMATOPHYTOSIS OF NAIL (Primary Dx) Social History Tobacco Use Types Packs/Day Years Used Date Smoking Tobacco: Never Assessed Comments Unknown Sex and Gender Information Value Date Recorded Sex Assigned at Not on file Legal Sex Female 5:18 AM OPTICAL EFFECTS LAYOUT PERSON Gender Identity Not on file Sexual Orientation Not on file documented as of this encounter Plan of Treatment Not on file documented as of this encounter Visit Diagnoses Diagnosis Dermatophytosis of nail- Primary documented in this encounter Care Teams Regional Economic Liaison Relationship Specialty Start Date End Date Malathi Perez MD PCP - General Family Practice 02/25/20 documented as of this encounter
--- OUTSIDE RECORDS SUMMARY | 2024-08-10 16:34 | XMS_ITS | Encounter Summary ---
Author Organization [facility] Address [address] [place] [address] Care Team Providers Care Nitrocellulose Maker Name Role Phone Malathi Perez MD Primary Care Provider [phone] Encounter Details Date Type Department Care Team (Late st Contact Info) Description 11/21/2003 Outpatient Historical [facility] Primary Care - [address] [place] [address] Cody Rubio MD [address] [facility] [address] [place] [address] Social History Tobacco Use Types Packs/Day Years Used Date Smoking Tobacco: Never Assessed Comments Unknown Sex and Gender Information Value Date Recorded Sex Assigned at Not on file Legal Sex Female 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
--- OUTSIDE RECORDS SUMMARY | 2024-08-10 16:34 | XMS_ITS | Encounter Summary ---
Author Organization [facility] Address [address] [place] [address] Care Team Providers Care Water Quality Manager Name Role Phone Kareem Minerva Phillips MD Unavailable Alfie Vegas MD Unavailable [phone] Toni Cintron MD Unavailable [phone] Brendan Thomas DPM Unavailable [phone] Vivi Wood CNM Unavailable [phone] Tahmina Marvin MD Unavailable Cristofer Alicia MD Unavailable [phone] Prashanth Lee MD Unavailable Roberto Carlos Fregoso MD Unavailable García Siddiqui DO Unavailable Ana Delarosa MD Unavailable [phone] Orion Sommer MD Unavailable [phone] Alban Hernandez MD Unavailable [phone] Rehana Mckeon MD Unavailable Eddie Funez MD Primary Care Provider [phone] Encounter Details Date Type Department Care Team (Late st Contact Info) Description 07/15/2024 Results [facility] [address] [id number] Eddie Funez MD Di [facility] [place] [address] Estradiol, CBC with auto differential, Comprehensive metabolic panel, Additional followed-up results: 4 Social History Tobacco Use Types Packs/Day Years [...] on file Legal Sex Female 7:24 PM FISH BIN TENDER Gender Identity Female 02/08/2020 5:48 PM FISH BIN TENDER Sexual Orientation Straight 02/08/2020 5: 48 PM FISH BIN TENDER documented as of this encounter Miscellaneous Notes * Telephone Encounter - Nieves Messina MA - 07/15/2024 2:14 PM CDT Please advise on the estradiol and if you recommend that she take a supplement? documented in this encounter Plan of Treatment Not on file documented as of this encounter Visit Diagnoses Not on filedocumented in this encounter Care Teams Water Quality Manager Relationship Specialty Start Date End Date Eddie Funez MD [address] [place] [address] PCP - General Family Medicine 07/01/24 Minreva Serna MD Consulting Physician Gastroenterology 01/28/21 Alfie Vegas MD Consulting Physician Hematology 01/28/21 Toni Cintron MD [address] [place] [address] Consulting Physician Obstetrics and Gynecology 01/28/21 Brendan Thomas DPM [address] [place], [place] [id number] Consulting Physician Foot and Ankle Surg 01/28/21 Vivi Wood CNM [address] [place] [address] Nurse Practitioner Psychiatry 04/08/22 Tahmina Marvin MD [address] [place] [address] Referring Physician Pain Management 04/08/22 Cristofer Alicia MD [address] [facility] [address] [place] [id number] Referring Physician Neurosurgery 04/08/22 [place] [address] [place] [address] Consulting Physician Endocrinology Diabetes & Metabolism 04/08/22 Roberto Carlos Fregoso MD [address] [facility] [place] [address] Referring Physician Otolaryngology 04/08/22 García Siddiqui DO [address] [facility] [place] [address] Referring Physician Surgery 04/08/22 Ana Delarosa MD [address] [place], [place] [id number] Consulting Physician Sleep Medicine 04/08/22 [place] [address] [place] [address] Surgeon Orthopedic Surgery 04/08/22 [place] [address] [place] [address] Referring Physician Orthopedic Surgery 04/08/22 [place] [address] [place] [address] Consulting Physician Cardiology 04/08/22 documented as of this encounter
--- OUTSIDE RECORDS SUMMARY | 2024-08-10 16:35 | XMS_ITS | CONTINUITY OF CARE DOCUMENT ---
Author Name maryruchi maryruchi Address Unknown Organization [facility] Address [address] [place] [address] Phone [phone] Care Team Providers Care Coal Weigher Name Role Phone Mike AYALA, Rehana Unavailable [phone] Joe AYALA, Mary Unavailable Joe AYALA, Mary Unavailable PROBLEMS Condition Status Date Provider Notes HYPOKALEMIA active Bianca Refugio ASTHMA active Bianca Refugio SHORTNESS OF BREATH active Bianca Refugio PALPITATIONS completed - Rehana Mckeon MD Cardiology examination active Agapito Araiza Venous insufficiency active Fabiana Stern NP Hx of bariatric surgery in 2020 active Elgin Mckeon MD Preoperative cardiovascular examination completed - Rehana Mckeon MD CHEST PAIN, completed - Rehana Mckeon MD TOBACCO ABUSE QUIT 12 YRS AGO active Emy Lively RENAL INSUFFICIENCY ECTOPIC KIDNEY completed - Rehana Mckeon MD HYPERCHOLESTEROLEMIA completed - Rehana Mckeon MD HTN ESSENTIAL--echo ef 60%, 02/2021 active Agapito Araiza ENCOUNTERS Date Type Provider Location Encounter Diag nosis - In-person encounter Office Visit Rehana Mckeon MD [facility] Cardiology examination - In-person encounter Office Visit Rehana Mckeon MD [place] [facility] - In-person encounter Office Visit Rehana Mckeon MD [place] [facility] - In-person encounter Office Visit Rehana Mckeon MD [place] [facility] - In-person encounter Office Visit Elijah Giles MD [facility] Venous insufficiency - In-person encounter Office Visit Rehana Mckeon MD [place] [facility] - In-person encounter Office Visit Rehana Mckeon MD [place] [facility] - In-person encounter Office Visit Rehana Mckeon MD [place] [facility] HTN ESSENTIAL--echo ef 60%, reoperative cardiovascular examinationHx of bariatric surgery in 2020 - In-person encounter Office Visit Rehana Mckeon MD [place] [facility] - In-person encounter Office Visit Rehana Mckeon MD [facility] PALPITATIONSHYPERCHOLESTEROLEMIARENAL INSUFFICIENCY ECTOPIC KIDNEYCHEST PAIN, - In-person encounter Office Visit Rehana Mckeon MD [place] [facility] TOBACCO ABUSE QUIT 12 YRS AGOCHEST PAIN, VITAL SIGNS Date Observation Value Provider Body Mass Index (Ratio) 28.49 kg/m2 Elgin Mckeon MD pulse rate 61 /min Perri augustin oxygen saturation, oximetry 98 % Perri Patricia blood pressure, diastolic 76 mm[Hg] Ti renny Patricia blood pressure, systolic 114 mm[Hg] Jasvir Patricia weight E&M 166 [lb_av] Perri augustin blood pressure, cuff size regular Ti renny Patricia height E&M 64 [in_i] Perri augustin Body Mass Index (Ratio) 25.57 kg/m2 Elgin Mckeon MD blood pressure, diastolic 80 mm[Hg] Tiffany nkLogic blood pressure, systolic 120 mm[Hg] Loraine kLogic blood pressure, cuff size regular Ke rri Gruenenfelder blood pressure, diastolic 80 mm[Hg] Ke rri Gruenenfelder blood pressure, systolic 120 mm[Hg] Cordelia Hoffmannelder oxygen saturation, oximetry 96 % Kavya Cuencabrianjodeeeld respiratory rate E&M 12 /min Kavya Steel musaenenfeld pulse rate 79 /min Kavya Floresnfe [facility] weight E&M 149 [lb_av] Kavya Floresnfe [facility] height E&M 64 [in_i] Kavya Floresnfe [facility] blood pressure, cuff size regular [facility] blood pressure, diastolic 70 mm[Hg] [facility] blood pressure, systolic 104 mm[Hg] [facility] pulse rate 90 /min [facility] respiratory rate E&M 16 /min Shazia Linda iller oxygen saturation, oximetry 95 % [facility] Body Mass Index (Ratio) 23.51 kg/m2 [facility] weight in kilograms E&M 62.14 kg [facility] weight E&M 137 [lb_av] Shazia Vernon height E&M 64 [in_i] [facility] height in centimeters E&M 162.56 cm [facility] Body Mass Index (Ratio) 23.00 kg/m2 Elgin Mckeon MD blood pressure, cuff size regular Ke rri Gruenenfeld blood pressure, diastolic 80 mm[Hg] Ke rri Gruenenfelder blood pressure, systolic 132 mm[Hg] Cordelia ri Gruenenfelder oxygen saturation, oximetry 97 % Kavya Gruenenfelder respiratory rate E&M 12 /min Kavya G ruenenfelder pulse rate 71 /min Kavya Gruenenfe er weight E&M 134 [lb_av] Kavya Gruenenfe lder height E&M 64 [in_i] Kavya Gruenenfe er Body Mass Index (Ratio) 23.86 kg/m2 Rich Webb blood pressure, cuff size regular Ke rri Gruenenfelder blood pressure, diastolic 72 mm[Hg] Ke rri Gruenenfelder blood pressure, systolic 122 mm[Hg] Cordelia ri Frandyuenejodeeelder oxygen saturation, oximetry 97 % Kavya Frandyuenejodeeelder respiratory rate E&M 14 /min Kavya Milvia [...] blood pressure, diastolic 59 mm[Hg] Ca therine [place] blood pressure, systolic 121 mm[Hg] Cat herine [place] oxygen saturation, oximetry 96 % Sharon Kyle pulse rate 67 /min Sharon Kyle respiratory rate E&M 14 /min Catheri ne [place] weight E&M 167 [lb_av] Sharon [place] blood pressure, cuff size regular Ca therine [place] height E&M 64 [in_i] Sharon Kyle Body Mass Index (Ratio) 37.59 kg/m2 Elgin Mckeon MD blood pressure, cuff size regular Pa ris Tok blood pressure, diastolic 74 mm[Hg] Pa ris Tok blood pressure, systolic 134 mm[Hg] Par is Phillip respiratory rate E&M 21 /min Rosa H trey pulse rate 77 /min Rosa Tok oxygen saturation, oximetry 97 % Rosa Phillip weight E&M 219 [lb_av] Rosa Phillip height E&M 64 [in_i] Rosa Phillip Body Mass Index (Ratio) 42.22 kg/m2 Elgin Mckeon MD blood pressure, diastolic 90 mm[Hg] Li nkLogic blood pressure, systolic 180 mm[Hg] Loraine kLogchance blood pressure, diastolic 90 mm[Hg] Rh onda Jackie blood pressure, systolic 180 mm[Hg] Rho nda Jackie oxygen saturation, oximetry 96 % Guadalupeyoan Mejia pulse rate 54 /min Guadalupe Mejia blood pressure, cuff size regular Rh onda Jackie respiratory rate E&M 16 /min Guadalupe Mejia blood pressure, resting No Rhon da Jackie weight E&M 246 [lb_av] Guadalupe Mejia height E&M 64 [in_i] Guadalupe Mejia blood pressure, diastolic, left arm 79 mm [Hg] [facility] blood pressure, systolic, left arm 126 mm [Hg] Agustin [place] blood pressure, diastolic 79 mm[Hg] Audrey seph [place] blood pressure, systolic 126 mm[Hg] Asaf eph [place] pulse rate 76 /min [place] oxygen saturation, oximetry 96 % Agustin [place] respiratory rate E&M 16 /min [place] weight E&M 260 [lb_av] [facility] ALLERGIES Allergy Name Onset Date [...] LinkLogic 0-149 cholesterol, serum 158 mg/dL [facility] [phone]/12/ 29 basophil count, absolute 0.0 x10E3/uL LinkLogic [...] Not Estab. platelet count 151 X10E3/UL [facility] [phone]/12/ 29 red blood cell distribution width 12.3 [...] g/dL [facility] 6.0-8.5 calcium, serum 9.3 mg/dL [facility] carbon dioxide, venous blood 31 mmol/L [facility] 20[facility]29 High chloride, serum 102 mmol/L [facility]ic 96-106 potassium, serum 3.0 mmol/L [facility] 3.[facility]-5.2 Low sodium, serum 147 mmol/L [facility] 134[facility]144 High urea nitrogen/creatinine ratio, serum 17 [facility] 12-28 creatinine, serum 0.60 mg/dL [facility] 0.57-1.00 urea nitrogen, blood 10 mg/dL [facility] 8-27 blood glucose, random 86 mg/dL [facility] 70-99 thyroid stimulating hormone, serum 2.500 u[IU]/mL [facility] Armando very low density lipoproteins 36 mg/dL [facility] triglyceride, serum, fasting 178 mg/dL [facility] HDL cholesterol, serum 53 mg/dL [facility] LDL cholesterol, serum 104 mg/dL [facility] [place] cholesterol, serum 193 mg/dL [facility] globulins, serum, total 3.0 g/dL [facility] Estimated Glomerular Filtration Rate (calc) 58 mL/min/{1 .73_m2} [facility] albumin/globulin ratio, serum 1.3 [facility] protein, total, serum 6.9 g/dL [facility] albumin, serum 3.9 g/dL [facility] bilirubin, serum, total 0.3 mg/dL [facility] alkaline phosphatase, serum 109 1/L [facility] alanine aminotransferase (SGPT), serum 22 1/L [facility] aspartate aminotransferase (SGOT), serum 18 1/L [facility] calcium, serum 9.2 mg/dL [facility] blood glucose, fasting 84 mg/dL [facility] creatinine, serum 1.02 mg/dL [facility] urea nitrogen, blood 13 mg/dL [facility] carbon dioxide, serum, total 29 mmol/L [facility] chloride, serum 101 mmol/L [facility] potassium, serum 3.4 mmol/L [facility] sodium, serum 142 mmol/L [facility] HISTORY OF MEDICATION USE Medication Status Instructions Dates Provider Indications Com ments levothyroxine 112 mcg tablet active Agapito Dooleyzafilipe spironolactone 25 mg tablet active TAKE 1 TABLET BY MOUTH ONCE DAILY Agapito Dooleyzai losartan 50 mg tablet active TAKE 1 TABLET BY MOUTH ONCE DAILY Agapito Dooleyzai hydrocodone-acetam inophen 10-325 mg tablet active Es Ventimiglia QI SPECIALIST losartan 50 mg tablet completed Take 1 tablet by mouth once a day TAKE 1 TABLET BY MOUTH EVERY DAY - Ramon spironolactone 25 mg tablet completed Take 1 tablet by mouth once a day - Sury Sethnhezequiel losartan 100 mg tablet completed TAKE 1 [...] Agapito Dimas i drug use no Agapito Araiza alcohol use no Agapito Araiza smoking, year quit 2008 Agapito kapadia number of years as a smoker 10 years or m ore Agapito Araiza cigarette use yes Agapito Araiza smoking status Former smoker Agapito Dimas i social history reviewed E&M revi ewed - no changes required Rehana Mckeon MD social history E&M Marital Statu s: Nura patel with family/friends E thnicity: Smoking History: Orquidea flynn is a former smoker. Rehana Mckeon MD smoking, year quit 2008 Shazia herrmann cigarette use yes Shazia Herrmann smoking status Former smoker Shazia Herrmann drug use no Es Ventimig jesus manuel [facility] alcohol use no Es Ventimig jesus manuel [facility] physical exercise, frequency, days per week no [...] exercise, frequency, days per week no Rosa Tok caffeine use, averag e drinks per day [...] or m ore LinkLog smoking status Quit [facility] MENTAL STATUS Date Observation Value Provider assessment of judgme nt and insight E&M Alert and oriented to time, place and person. Mood and affect are normal. Rehana Mckeon MD INSURANCE PROVIDERS Payer name Policy type / Coverage type [place] red [employer] party ID AARP MCR ADVANTAGE PLAN 2 (HMO-POS) Medicare [id number] [facility] Medicaid 3 [id number] ADVANCE DIRECTIVES Name Date DISCUSSED - NO DECISION MADE TREATMENT PLAN Date Name Performer [id number],S, Rehana Mckeon MD [id number],S,c urrently asymptomatic. Her updated medication list for this problem includes: Losartan 50 Mg Tablet (Losartan) ..... Take 1 tablet by mouth once a day take 1 tablet by mouth every day Spironolactone 25 Mg Tablet (Spironolactone) ..... Take 1 tablet by mouth once a day Rehana Mckeon MD [id number],B,C ut Losartan from 100mg to 50mg daily Her updated medication list for this problem includes: Losartan 50 Mg Tablet (Losartan) ..... Take 1 tablet by mouth once a day take 1 tablet by mouth every day Spironolactone 25 Mg Tablet (Spironolactone) ..... Take 1 tablet by mouth once a day Rehana Mckeon MD [id number],C,remains tobac co free Es MATTP [id number],C,c urrently asymptomatic. H er updated medication list for this problem includes: Losartan 100 Mg Tablet (Losartan) ..... Take 1 tablet by mouth once a day take 1 tablet by mouth every day Spironolactone 25 Mg Tablet (Spironolactone) ..... Take 1 tablet by mouth once a day Es MATTP [id number],C,c ontrolled. Will continue present medication regimen H er updated medication list for this problem includes: Losartan 100 Mg Tablet (Losartan) ..... Take 1 tablet by mouth once a day take 1 tablet by mouth every day Spironolactone 25 Mg Tablet (Spironolactone) ..... Take 1 tablet by mouth once a day Es To [facility] [id number],C,S he continues to have pain left foot 3rd digit with bruising and pain with ambulation. Concern is that this is related musculoskeletal injury as no venous insufficiency noted on doppler and Sensilase with microvascular disease. Have recommended ortho eval and non-weight bearing. Es To [facility] [id number],C,D enies SOB H er updated medication list for this problem includes: Losartan 100 Mg Tablet (Losartan) ..... Take 1 tablet by mouth once a day take 1 tablet by mouth every day Spironolactone 25 Mg Tablet (Spironolactone) ..... Take 1 tablet by mouth once a day Fabiana Nalluri [id number],C,B P controleld well B P today: 122/72 [...] by mouth once a day Fabiana Nalluri [employer] SALES REPRESENTATIVE [id number],C, Fabiana Nalluri TELECOMMUNICATIONS SALES REPRESENTATIVE [id number],C,C /o pain in left middle toe pain/cheange into purple color. She had MRI done whish shwed joint fusion. No evidence of osteomelitis or fracture. O rders: V enous Doppler Bilateral LE - Reflux (CPT-42907) Fabiana Leoneri TELECOMMUNICATIONS SALES REPRESENTATIVE [id number],S, Agapito Ahmedza i [id number],S, Agapito Ahmedza i [id number],S, Agapito Ahmedza i [id number],S, Agapito Ahmedza i [id number],W, Agapito Ahmedza i [id number],S, Agapito Ahmedza i [id number],S, Agapito Ahmedza i [id number],S, Agapito Ahmedza i [id number],S, Agapito Ahmedza i [id number],S, Agapito Ahmedza i [id number],S, Agapito Ahmedza i [id number],B, Agapito Ahmedza i [id number],S, Agapito Ahmedza i [id number],B, Agapito Ahmedza i [id number],B, Agapito Ahmedza i [id number],S, Agapito Ahmedza i Cardiology Rehana Mckeon MD [...] day Rehana Mckeon MD Cardiology:remains tobacco free [facility] Cardiology:currently asymptomatic. H er updated medication list for this problem includes: Losartan 100 Mg Tablet (Losartan) ..... Take 1 tablet by mouth once a day take 1 tablet by mouth every day Spironolactone 25 Mg Tablet (Spironolactone) ..... Take 1 tablet by mouth once a day [facility] Cardiology:controlle d. Will continue present medication regimen H er updated medication list for this problem includes: Losartan 100 Mg Tablet (Losartan) ..... Take 1 tablet by mouth once a day take 1 tablet by mouth every day Spironolactone 25 Mg Tablet (Spironolactone) ..... Take 1 tablet by mouth once a day [facility] Cardiology:She alexia nues to have pain left foot 3rd digit with bruising and pain with ambulation. Concern is that this is related musculoskeletal injury as no venous insufficiency noted on doppler and Sensilase with microvascular disease. Have recommended ortho eval and non-weight bearing. Moffit Yousuf [facility] Cardiology:Denies SO B H er updated medication [...] by mouth once a day Fabiana Nalluri TELECOMMUNICATIONS SALES REPRESENTATIVE Cardiology Fabiana Nalluri TELECOMMUNICATIONS SALES REPRESENTATIVE Cardiology:C/o pain in left middle toe pain/cheange into purple color. She had MRI done whish shwed joint fusion. No evidence of osteomelitis or fracture. O rders: V enous Doppler Bilateral LE - Reflux (CPT-90750) Fabiana Nalluri TELECOMMUNICATIONS SALES REPRESENTATIVE Telehealth Agapito Ahmedzai Telehealth Agapito Ahmedzai Telehealth [...] OF PROCEDURES Procedure Date Procedure Name Provider Procedure Notes S tatus Complex e/m visit add on Rehana Mckeon MD completed EKG Rehana Mckeon MD completed EKG Rehana Mckeon MD completed EKG Rehana Mckeon MD completed EKG Rehana Mckeon MD completed
--- OUTSIDE RECORDS SUMMARY | 2024-08-10 16:35 | XMS_ITS | Clinical Summary ---
Author Organization [facility] [employer] Address [address] [place] [address] Care Team Providers Care Diabetes Physician Name Role Phone Slick Quispe MD Primary Care Provider Source Comments [facility] [employer],non-owned Affiliates and Associated Physician Practices is amultiple site organization consisting of ambulatory clinics and hospital sitesin [place], [place], [place] and [place]. This disclosure is being madepursuant to the Care Everywhere program and may not contain all information available regarding this patient. Last updated 17.[facility] [employer] Allergies Active Allergy Reactions Criticality Noted Date Comments Wgmkbnrz-Imvpknetcr-Lcncily in Rash Medium 05/27/2024 Severity depends on [...] times daily 10/31/19 22 Active HYDROcodone-aneta taminophen (Elton) 10-325 MG tablet Take 1 (one) tablet [...] 05/31/2024 1:00 PM CDT Anesthesia Event [facility] [address] [address] Tai Carr MD 05/31/2024 12:50 PM CDT - 05/31/2024 2:40 PM CDT Surgery [facility] [place] [facility] [address] [address] Zay Peraza DPM REMOVAL OF NEUROMA OF FOOT 2ND INTERSPACE//RESECTION OF DORSAL EXOSTOSIS FOOT, FAT PAD AUGMENTATION WITH ACELLULAR ALLOGRAFT OF FOOT 05/31/2024 10:27 AM CDT - 05/31/2024 4:02 PM CDT Hospital Encounter [facility] [facility] [address] [address] Zay Peraza DPM Surgery General Discharge Disposition: Home or Self Care 05/31/2024 Travel 05/27/2024 Travel from Last 3 Months Social History Tobacco Use Types Packs/Day Years Used Date Smoking Tobacco: Former Cigarettes 1.5 53 S tarted: 08/28/1971 Smokeless Tobacco: Never Alcohol [...] Sex Assigned at Female 05/20/2022 6:45 PM [employer] Legal Sex Female 7:40 AM [employer] Gender Identity Female 05/20/2022 6:45 PM [employer] Sexual Orientation Straight 05/20/2022 6: 45 PM [employer] Last Filed Vital Signs Vital Sign Reading [...] this topic Medical Devices Implanted Type Area Wiring Mechanic Device Identifier Shelf Expiration Date Model / Serial / Lot Graft Jacket Now Thick Implanted:Qty: 1 on 05/31/2024 by Zay Peraza DPM at [facility] Left: [employer] 10/10/2024 [id number] / / [id number] [employer]flow Placental Tissue Matrix Implanted:Qty: 1 on 05/31/2024 by Zay Peraza DPM at [facility] Left: Simple Car Wash 05/07/2028 [id number] / / Procedures Procedure Name Priority Date/Time Associated Diagnosis Comments PATHOLOGY TISSUE EXAM (STL) Routine 05/31/2024 1:56 PM CDT Diagnosis unknown MI EXCIS INTERDIGITAL NEUROMA,EA 05/31/2024 12:51 PM CDT Special Needs 60 MINS, NARAYAN GRAFT JACKET ROSALIA GIL CONFIRMED [phone] 05/26 LR MAMMOGRAM 06/18/2022 from Last 3 Months or Most Recently Relevant to Health Maintenance Results * PATHOLOGY TISSUE EXAM (STL) (05/31/2024 1:56 PM CDT) Case Report Surgical Pathology Report Case: [id number] Authorizing Provider: Zay Peraza DPM Collected: 05/31/2024 01:56 PM Ordering Location: [facility] Received: 06/01/2024 09:42 AM [facility] [place] [facility] Pathologist: Kiarra Coello MD Specimen: Neuroma 06/02/2024 10:20 AM T [facility] Final Diagnosis Neuroma, left foot, excision: Consistent with neuroma. 06/02/2024 10:20 AM [facility] at 1020 CDT Gross Description Received in formalin labeled with the patient's name and neuroma left are 2 bellamy tissue fragments, 0.5 x 0.3 x 0.2 cm in aggregate. The specimen is filtered and entirely submitted in A1. 06/02/2024 10:20 AM [facility] Disclaimer All histochemical and/or immunohistochemical results are interpreted with controls that demonstrate appropriate staining reactions before reporting results. Note on use of immunocytochemistry reagents: This test was developed and its performance characteristic determined by [facility], Department of Laboratory Medicine. It has [...] be interpreted with caution. 06/02/2024 10:20 AM T [facility] Embedded Images 06/02/2024 10:20 AM [facility] Pathology/Cytolo gy NEUROMA / Unknown 05/31/2024 1:56 PM CDT 06/01/2024 9:42 AM CDT us Zay Peraza DPM LAB - PATHOLOGY/CYTOLOGY O RDERABLES Final Result [facility] [address] [address] * MAMMOGRAM (06/18/2022) Anatomical Region Laterality Modality Other 06/18/2022 Narrative 06/18/2022 Ordered by an unspecified provider. us Scanned Document SCANNING ONLY Final Result from Last 3 Months or Most Recently Relevant to Health Maintenance Insurance MEDICAID - OUT OF STATE [facility] MANAGED MEDICARE ADV MEDICARE [facility] MANAGED MEDICARE [facility] [place] Care Teams Diabetes Physician Relationship Specialty Start Date End Date Slick Quispe MD [address] [place] [id number] PCP - General 08/02/21
--- OUTSIDE RECORDS SUMMARY | 2024-08-10 16:35 | XMS_ITS | Data Portability ---
Author Organization [facility], Main Office Address [address] [place] [address] Assessment No assessment recorded. Plan of Treatment Reminders Order Date Submit Date Provider Last Modified By Organization Details Last Modified Time Details Appointments None recorded. Lab ceruloplas min, serum [address] (Lab), [address] [place], [address], 4 12:03:52 mitochondr ial Ab, serum [address] (Lab), [address] [place], [address], 4 12:03:57 smooth muscle Ab, serum [address] (Lab), [address] [place], [address], 4 12:04:02 HBsAg (hepatitis B surface Ag), serum [address] (Lab), [address] [place], [address], 4 12:04:07 hepatitis C RNA, qualitativ e, serum [address] (Lab), [address] [place], [address], 4 12:04:12 Referral colon & rectal surgeon referral - Please contact patient to schedule 2024 025 JAYLIN Hollins MD, [facility], [address], 14:10:35 Procedures None recorded. Surgeries None recorded. Imaging None recorded. Medication Orders None recorded. Patient TargetsNo targets recorded. Patient Instructions Encounter Date Encounter Id Patient Instructions Last Modified By Organization Details Last Modified Time 04/09/2023 [id number] PT WITH ELEVATED LIVER ENZYMES . SX ARE MOST LIKELY B/C STATIN MED . CHECK LIVER MARKERS . F/U IN 4 WEEKS . [email or web address] Not available 04/09/2023 16:06:57 07/14/2024 [id number] PT WITH RECTAL PROLAPSE . REFER TO DR HOLLINS. [email or web address] Not available 07/14/2024 13:04:20 Reason for Referral [...] Recorded Time Chronic obstructiv e pulmonary disease 32138679 Active Not Available [facility] 3 07:29:57 Non-toxic nodular goiter 027853990 Active 2016 Not Available [facility] 3 07:29:57 Tobacco dependence in remission 506764110 Active Not Available [facility] 3 07:29:57 Asthma 774948166 Active Not Available [facility] 3 07:29:57 Localized, primary osteoarthr itis of the pelvic region and thigh 958614842 Active Not Available [facility] 3 07:29:57 Gastroesop hageal reflux disease 518775475 Active Not Available [facility] 3 07:29:57 Gastroesop hageal reflux disease without esophagiti s 370364156 Active 2021 Not Available [facility] 3 07:29:57 History of emphysema 403926778884 06651 Active Not Available [facility] 3 07:29:57 Vaginal discharge 627882165 Active Not Available [facility] 3 07:29:57 Lymphadeno yazan 84107983 Active Not Available [facility] 3 07:29:57 Vaginitis 38342579 Active Not Available [facility] 3 07:29:58 Mild chronic obstructiv e pulmonary disease 618027510 Active Not Available [facility] 3 07:29:58 Bronchitis 77371218 Active Not Available [facility] 3 07:29:58 Depressive disorder 39304638 Active Not Available [facility] 3 07:29:58 Major depressive disorder 473411364 Active Not Available [facility] 3 07:29:58 Hypertensi ve disorder 63077460 Active Not Available [facility] 3 07:29:58 Osteoarthr itis 648863118 Active knee, pelvic and thigh Not Available [facility] 3 07:29:58 Subclinica l hyperthyro idism 239648541 Active 2016 Not Available [facility] 3 07:29:58 Hypokalemi a 18432674 Active Not Available [facility] 3 07:29:58 Migraine with aura 8596271 Active 2017 Not Available [facility] 3 07:29:58 Hoarse 27963257 Active Not Available [facility] 3 07:29:59 Hyperlipid emia 57816279 Active Not Available [facility] 3 07:29:59 Female stress incontinen ce 92500179 Active Not Available [facility] 3 07:29:59 Polyp of colon 05290750 Active 2016 Not Available [facility] 3 07:29:59 Degenerati on of interverte bral disc 41191664 Active Not Available [facility] 3 07:29:59 Obstructiv e sleep apnea syndrome 03281532 Active Not Available [facility] 3 07:29:59 Fatigue 98098495 Active Not Available [facility] 3 07:29:59 Thyrotoxic osis 40490881 Active 2016 Not Available [facility] 3 07:29:59 Primary fibromyalg ia syndrome 74042657 Active Not Available [facility] 3 07:30:00 Liver enzymes level above reference range 237539428 Active 2023 Minerva Serna MD [address] [facility], [place] [address], [place], [address] , [employer] 4 16:01:54 Rectal prolapse 96178266 Active 2024 Minerva Serna MD [address], [place], [address] , [employer] [facility] 5 13:03:30 Problem Notes None recorded. Procedures Surgical History Date Name Laterality Status Provider Name and Address Organization Details Recorded Time 1 Gastric Bypass completed Not Available [facility] 05/22/2022 07:26:21 Imaging Results None recorded. Procedure Notes None recorded. Medical Equipment None Reported. Allergies Allergen ID Allergen Name Allergen Category Reaction Reaction Severity Criticality Documentation Date Start Date Code Code System Note Provider Name and Address Organization Details Recorded Time 31000 bacitraci n / neomycin / polymyxin B medicatio n itching rash moderate mild Not available 05/22/20222015 06355 9 RxNorm Not Available [facility] 3 07:34:24 11173 lisinopri l medicatio n Not available Not available Not available 05/22/2022 40408 RxNorm error not aller gic per pt Not Available [facility] 3 07:34:25 Medications Name Sig Start Date [...] % 97 % 84 /min 98.3 [degF] 79565.9 3 g 128 mm[Hg] 82 mm[Hg] Not Available [facility] 3 07:29:01 Date Recorded Body mass index (BMI) Body height Oxygen saturation Oxygen saturation in Arterial blood by Pulse oximetry Heart rate Body temperature Body weight Systolic blood pressure Diastolic blood pressure Provider Name and Address Organization Details Last Updated DateTime 3 23.7 kg/m2 162.56 cm 100 % 100 % 66 /min 97 [degF] 62327.7 5 g 122 mm[Hg] 82 mm[Hg] Not Available [facility] 3 07:29:01 Date Recorded Body height Body mass index (BMI) Body weight Heart rate Systolic blood pressure Diastolic blood pressure Provider Name and Address Organization Details Last Updated DateTime 4 162.56 cm 23.7 kg/m2 66557.7 5 g 64 /min 120 mm[Hg] 80 mm[Hg] Renaldo Penn Aylin [employer] 4 15:22:44 Date Recorded Body height Body mass index (BMI) Body weight Heart rate Oxygen saturation Oxygen saturation in Arterial blood by Pulse oximetry Systolic blood pressure Diastolic blood pressure Provider Name and Address Organization Details Last Updated DateTime 5 162.56 cm 26.8 kg/m2 97978.4 1 g 103 /min 98 % 98 % 118 mm[Hg] 72 mm[Hg] Renaldo Penn Aylin [employer] 5 12:14:09 Social History Question Answer Notes LastModified by Preclick Details LastModified Time Tobacco Smoking Status Never Smoker [facility] [employer] 04/09/2023 15:21:54 What Is Your Level Of Caffeine Consumption? None [id number] Information not available 05/22/2022 What Type Of Diet Are You Following? REGULAR [id number] Information not available 05/22/2022 What Was The Date Of Your Most Recent Tobacco Screening? 03/27/2022 Information not available 04/09/2023 What Is Your Relationship Status? [id number] Information not available 05/22/2022 Have You Recently Traveled Abroad? No Information not available 04/09/2023 Sex: Female Functional Status Question Answer Note LastModified by [employer] Details LastModified Time What is your level of alcohol consumption? Occasional [id number] Information not available 05/22/2022 Mental Status None recorded. Family History Relationship Description Onset Age of this Age Resolved Age Notes LastModified by Organization Details LastModified Time Maternal Grandfather Diabetes mellitus [id number] Not available 05/22/2022 07:26:23 Maternal Grandmother Malignant tumor of colon [email or web address] Not available 2023 15:21:52 Medical History No medical history recorded. Gynecological HistoryNo gynecological history recorded. Obstetrics History GPAL:G 0 P 0 0 0 0 Immunizations Vaccine Type Date Status Note Provider Nam e and Address Organization Details Recorded Time Tdap 0 completed Not Available [facility] 05/22/2022 07:34:18 Influenza, split virus, quadrivalent, preservative 0 completed Not Available [facility] 05/22/2022 07:34:19 Past Encounters Encounter ID Performer Location Encounter Start Date Encounter Closed Date Diagnosis/Indication Diagnosis SNOMED-CT Code Diagnosis ICD10 Code Diagnosis Note [id number] _ATHN_MIGR ATION_1 _ATHENA_M IGRATION_ DEFAULT_1 _1 , 09/05/2021 00:00:00 09/05/2021 15:10:26 [id number] _ATHN_MIGR ATION_1 _ATHENA_M IGRATION_ DEFAULT_1 _1 , 03/27/2022 00:00:00 03/27/2022 12:19:10 [id number] Minerva Serna MD [facility] General Surgery [address] [place] [phone] 04/09/2023 15:21:03 04/10/2023 10:02:05 Liver enzymes level above reference range 512215728 R74.01 [id number] Minerva Serna MD [facility] General Surgery [address] [place] [phone] 07/14/2024 12:08:06 07/14/2024 12:33:24 Rectal prolapse 32339838 K62.3 Health Concerns Section Related Observation LastModified by Organization Detai ls LastModified Time None Recorded Concern Status LastModified by Organization Details LastModified Time None Recorded Advance Directives Directive None Recorded Payers Encounter Date Sequence Insurance Name Policy Number Policy Reaves Covered Member ID Reaves Member ID Guarantor Name 04/09/2023 1 [facility] (MEDICARE REPLACEMENT/A DVANTAGE - PPO) [id number] Flor Gallego [id number] Flor Dickerson Julián 04/09/2023 2 [place] [employer] [employer] Flor Dickerson Julián [id number] Flor Gallego 07/14/2024 1 [facility] (MEDICARE REPLACEMENT/A DVANTAGE - PPO) [id number] Flor Dickerson Juliná [id number] Flor Rodriguezcalin 07/14/2024 2 MED[place]ID-[place]: [facility] A[facility] Flor Dickerson Julián [id number] Flor Gallego Notes Date Note Type Note [...] Serna MD [address], [place], [address], [employer] 04/09/2023 16:07:25 07/14/2024 text/html NOAH WAS SEEN IN THE OFFICE FOR A F/U .PT IS C/O RECTAL PAIN . SHE APPARENTLY HAD A RECTAL PROLAPSE THAT WAS REDUCIBLE . THIS HAPPENED DURING DIARREHA/ SNEEZING . Minerva Serna MD [address], [place], [address], [employer] 07/14/2024 13:04:38 OBGyn Episode No OBEpisode recorded.
--- OUTSIDE RECORDS SUMMARY | 2024-08-10 16:35 | XMS_ITS | Referral Summary ---
Author Organization [facility] Address [address] [place] [address] Care Team Providers Care Stock Pitcher Name Role Phone Kareem Minerva Phillips MD Unavailable Alfie Vegas MD Unavailable [phone] Toni Cintron MD Unavailable Brendan Thomas DPM Unavailable [phone] Vivi Wood CNM Unavailable Tahmina Marvin MD Unavailable Cristofer Alicia MD Unavailable Prashanth Lee MD Unavailable Roberto Carlos Fregoso MD Unavailable García Siddiqui DO Unavailable [phone] Ana Delarosa MD Unavailable [phone] Orion Sommer MD Unavailable [phone] Alban Hernandez MD Unavailable Rehana Mckeon MD Unavailable Eddie Funez MD Primary Care Provider [phone] Encounters Date Type Department Care Team Description 07/26/2024 2:00 PM CDT Office Visit [facility] Diabetes and Endocrinology [address] [place] [phone] Mariam Shah NP Postoperative hypothyroidism (Primary Dx) 07/15/2024 Results [facility] [address] [phone] Eddie Funez MD Estradiol, CBC with auto differential, Comprehensive metabolic panel, Additional followed-up results: 4 07/01/2024 4:00 PM CDT Office Visit [facility] [address] [phone] Eddie Funez MD Need for hepatitis B screening test (Primary Dx); Encounter to establish care with new doctor; Postoperative hypothyroidism; Encounter for screening mammogram for malignant neoplasm of breast; Lung nodules; Post-menopause; COPD, mild (HCC); Pure hypercholesterolemia; Primary fibromyalgia syndrome; Osteopenia of multiple sites 06/23/2024 9:35 AM CDT Office Visit [address] [place] [phone] EyersCitlali NP Grade III hemorrhoids 05/13/2024 Results [facility] [address] [phone] Eddie Funez MD SCAN - RADIOLOGY/IMAGING from Last 3 Months Allergies Active Allergy Reactions Criticality Noted Date Comments Adhesive Other (See comments) Low 05/16/2022 Tears skin Bacitracin Rash Medium 02/04/2024 Neomycin Sulfate Rash Medium 02/04/2024 Nflvkuxc-Dbsuqecdhr-Cwdblooh n Itching,Rash Medium 06/07/2015 Polymyxin B Rash [...] Nasal saline spray (Simply saline, Little Remedies, [place], [place]) 2 second sprays or 2 squeezes into [...] evaluation Assessment & Plan (04/30/2023 5:32 PM WOOD PATTERNMAKER APPRENTICE): Noted on more recent labs. Patient had some blood work through her specialists. I have encouraged her to get me a copy of these to review Transaminitis 04/30/2023 Assessment & Plan (04/30/2023 5:35 PM WOOD PATTERNMAKER APPRENTICE): Present since least 2021. The elevated liver [...] 10/28/2022 Assessment & Plan (04/30/2023 5:32 PM WOOD PATTERNMAKER APPRENTICE): Chronic calcification noted on prior imaging. Risk [...] symptoms Assessment & Plan (04/30/2023 5:32 PM WOOD PATTERNMAKER APPRENTICE): Chronic but symptomatically improving. Working with Podiatry. [...] needed. Assessment & Plan (05/13/2023 11:09 AM WOOD PATTERNMAKER APPRENTICE): Chronic problem. Clinically euthyroid at this time. Reviewed recent labs 02/21 & 02/27 that were vastly different. Will repeat TFTs today at [facility]. Verified that she uses mychart. Aware to check results/results letter in mychart. Will contact by phone if needed. Aware to take 1st thing in morning, 30-60 minutes before food/drink/other medications. Assessment & Plan (04/30/2023 5:31 PM WOOD PATTERNMAKER APPRENTICE): Chronic. Follows with endocrinology. Continue thyroid medication per specialist Assessment & Plan (01/28/2023 11:38 AM WOOD PATTERNMAKER APPRENTICE): Chronic problem. Improved on current levothyroxine 112mcg [...] daily. TSH/T4 ordered. Verified that she uses [facility]. Aware to check results/results letter in [facility]. Will contact by phone if needed. Will send 90 day refill to [facility] once labs result Verified phone #/address if I need to call her. Pelvic floor dysfunction 04/24/2022 Assessment & Plan (04/24/2022 8:51 AM WOOD PATTERNMAKER APPRENTICE): -no myofascial pain noted on today's exam -continue performing PFPT exercises Vaginal atrophy 04/24/2022 Assessment & Plan (04/24/2022 8:51 AM WOOD PATTERNMAKER APPRENTICE): -discussed decreasing VET to twice per week, [...] working Assessment & Plan (04/24/2022 8:55 AM WOOD PATTERNMAKER APPRENTICE): -she is not using the the #1 [...] well Assessment & Plan (04/30/2023 5:31 PM WOOD PATTERNMAKER APPRENTICE): Chronic. Struggles some with anxiety at times [...] legs Assessment & Plan (04/30/2023 5:31 PM WOOD PATTERNMAKER APPRENTICE): Chronic. Continue medication care per pain management [...] report. Assessment & Plan (04/30/2023 5:33 PM WOOD PATTERNMAKER APPRENTICE): Noted previously. These were not mentioned on [...] Stable Assessment & Plan (04/30/2023 5:31 PM WOOD PATTERNMAKER APPRENTICE): Chronic. Continue medication and care per pain management Assessment & Plan (10/28/2022 7:11 PM CDT): Chronic. Continue medication and care per pain management Long-term current use of opiate analgesic 2021 Overview (04/08/2022): Dr. Yon Brown Assessment & Plan (04/30/2023 5:33 PM WOOD PATTERNMAKER APPRENTICE): Chronic. Medication care per pain management Osteopenia of multiple sites 02/12/2021 Assessment & Plan (07/13/2024 9:17 PM CDT): Stable, continue calcium supplementation and weight-bearing exercises to maintain bone density Depressive disorder 01/28/2021 Overview (04/08/2022): Sees psych, Vivikristine Wood Assessment & Plan (04/30/2023 5:30 PM WOOD PATTERNMAKER APPRENTICE): Chronic. Mood is stable. Continue medication care [...] monoplegia Assessment & Plan (04/30/2023 5:30 PM WOOD PATTERNMAKER APPRENTICE): Chronic. Continue medication and care per paint roller winder Assessment & Plan (10/28/2022 7:11 PM CDT): Chronic. Continue medication and care per paint roller winder Primary localized osteoarthritis of pelvic regio n and thigh 01/28/2021 Tobacco dependence in remission 01/28/2021 Assessment & Plan (04/30/2023 5:33 PM WOOD PATTERNMAKER APPRENTICE): Chronic. Patient will be due for updated [...] management Assessment & Plan (04/30/2023 5:27 PM WOOD PATTERNMAKER APPRENTICE): Chronic. Can continue medication care for pain management. She is on gabapentin, duloxetine, hydrocodone, and ropinirole Assessment & Plan (10/28/2022 7:11 PM CDT): Chronic. Can continue medication care for pain management. She is on gabapentin, duloxetine, hydrocodone known and ropinirole Assessment & Plan (02/14/2020 4:43 PM WOOD PATTERNMAKER APPRENTICE): Patient has 10 day history of low [...] that she continue with Dr. Carreno in [place] as she sees no need to have [...] 03/24/2017 Assessment & Plan (04/30/2023 5:31 PM WOOD PATTERNMAKER APPRENTICE): Chronic. Symptomatically has improved. Monitor. Assessment & [...] doses Assessment & Plan (04/30/2023 5:30 PM WOOD PATTERNMAKER APPRENTICE): Chronic. Follows with endocrinology. Continue medication and care per specialists Assessment & Plan (02/12/2021 12:34 PM WOOD PATTERNMAKER APPRENTICE): With subclinical hyperthyroidism. Will recheck free T4 [...] adjustment Assessment & Plan (04/30/2023 5:27 PM WOOD PATTERNMAKER APPRENTICE): Chronic. Breathing is relatively stable. Denies significant [...] continue Assessment & Plan (04/30/2023 5:30 PM WOOD PATTERNMAKER APPRENTICE): Chronic. Patient has a degree of transaminitis [...] now. Assessment & Plan (04/30/2023 5:31 PM WOOD PATTERNMAKER APPRENTICE): Chronic. Blood pressure is very tightly controlled [...] (04/05/2022): Added automatically from request for surgery [id number] Exposure of implanted vaginal mesh 11/20/2021 04/08/2022 Overview (11/20/2021): Added automatically from request for surgery [id number] Radiculopathy, lumbosacral region 05/09/2021 04/08/2022 Other obesity due to excess calories 05/09/2021 04/08/2022 Gastroesophageal reflux disease 01/28/2021 04/08/2022 Lymphadenopathy 01/28/2021 04/08/2022 Mild chronic obstructive pulmonary disease 01/28/2021 10/28/2022 Encounter to establish care 01/28/2021 04/08/2022 Assessment & Plan (01/28/2021 2:15 PM WOOD PATTERNMAKER APPRENTICE): A visit to establish care has been performed today. Flor Gallego is not up to date on screening tests. She is in need of Mammogram, Lung cancer screen and hepatitis c screen- these have been ordered. She is up to date on needed preventative vaccinations. Cervical radiculopathy 01/28/202104/08 Assessment & Plan (01/28/2021 2:17 PM WOOD PATTERNMAKER APPRENTICE): Her pain management was covered by her neurologist will need new pain doctor (her neurologist is leaving the area at the end of the month) Erythrocytosis 02/24/2020 04/08/2022 Pachyderma of larynx 06/26/2017 023 WILFRED (obstructive sleep apnea) 06/26/2017 04/08/2022 Hot thyroid nodule 02/20/2017 Assessment & Plan (03/28/2022 1:56 PM WOOD PATTERNMAKER APPRENTICE): Chronic problem, not at goal. She has h/o toxic MNG, with both hot and possible cold nodule on I-123 scan, low risk (per [facility]) FNA x 2 in [id number]. She is having increasing trouble swallowing and [...] 06/04/2022 Assessment & Plan (02/12/2021 12:45 PM WOOD PATTERNMAKER APPRENTICE): Risk of cardiac arrhythmias with discussed. The patient is following with cardiology Bone density also requested due to the risk of bone density loss in patient with subclinical hyperthyroidism Assessment & Plan (02/06/2017 4:43 PM WOOD PATTERNMAKER APPRENTICE): Check TFT's Treat as indicated Assessment & Plan (01/09/2017 4:27 PM CDT): Long standing, related to MNG Repeat TFT's Recommendations to follow Most likely will watch without specific intervention. Multinodular goiter (nontoxic) 01/09/2017 09/26/2022 Assessment & Plan (02/12/2021 12:55 PM WOOD PATTERNMAKER APPRENTICE): With FNA showing follicular lesion of unknown significance. With [facility] molecular testing, negative.less than 4 % change of malignancy. Will repeat thyroid ultrasound if not changes will continue monitoring Assessment & Plan (02/06/2017 4:42 PM WOOD PATTERNMAKER APPRENTICE): Differential diagnosis would include benign nodule (macrofollicular [...] on file Legal Sex Female 7:24 PM WOOD PATTERNMAKER APPRENTICE Gender Identity Female 02/08/2020 5:48 PM WOOD PATTERNMAKER APPRENTICE Sexual Orientation Straight 02/08/2020 5: 48 PM WOOD PATTERNMAKER APPRENTICE Last Filed Vital Signs Vital Sign Reading [...] on file Medical Devices Implanted Type Area Design Engineering Intern Device Identifier Shelf Expiration Date Model / Serial / Lot Ethicon Endo Surgery Tvt Prolene 45x1.1cm Tape Mesh Transvaginal Blue [id number] - [id number] Implanted:Qty: 1 on 05/29/2022 by Aura Driscoll MD at [facility] Mesh N/A: Urethra Ethicon Endo Surgery [id number] 11/21/2024 [id number] / / [employer] Sls-Clip Ligate Triangular Wire Kathleen Groove Small Chevron Clip Latex Free [id number] - [id number] Implanted:Qty: 2 on 05/20/2022 by Sameer Alan MD at [facility] [employer] [id number] / / [facility] Sls-Clip Ligate Triangular Wire Kathleen Groove Small Chevron Clip Latex Free [id number] - [id number] Implanted:Qty: 2 on 05/20/2022 by Sameer Alan MD at [facility] [id number] / / Procedures Procedure Name Priority Date/Time [...] ESTRADIOL Routine 07/14/2024 9:39 AM CDT Post-menopause HM MAMMOGRAPHY Routine 10/31/2023 2:52 PM CDT HEPATITIS C SCREENING Routine 04/06/2023 COLONOSCOPY Routine 09/18/2016 from Last 3 Months or Most Recently Relevant to Health Maintenance Results * (ABNORMAL) CBC with auto differential (07/14/2024 9:59 AM CDT) [facility] WBC 6.3 3.4 - 10.8 x10E3/uL [facility] - 01 RBC 5.18 3.77 - 5.28 x10E6/uL [facility] - 01 Hgb 15.9 11.1 - 15.9 g/dL [facility] - 01 Hct 48.6(H) 34.0 - 46.6 % [facility] - 01 MCV 94 79 - 97 fL [facility] - 01 MCH 30.7 26.6 - 33.0 pg [facility] - 01 MCHC 32.7 31.5 - 35.7 g/dL [facility] - 01 Rdw 11.6(L) 11.7 - 15.4 % [facility] - 01 Platelets 170 150 - 450 x10E3/uL [facility] - 01 Neutrophils pct 70 Not Estab. % [facility] - 01 Lymphs pct 23 Not Estab. % [facility] - 01 Monocytes pct 5 Not Estab. % [facility] - 01 Eosinophils pct 1 Not Estab. % [facility] - 01 Basophil pct 1 Not Estab. % [facility] - 01 Neutrophil abs 4.4 1.4 - 7.0 x10E3/uL [facility] - 01 Lymphs (Absolute) 1.4 0.7 - 3.1 x10E3/uL [facility] - 01 Monocyte abs 0.3 0.1 - 0.9 x10E3/uL [facility] - 01 Eosinophils, abs 0.1 0.0 - 0.4 x10E3/uL [facility] - 01 Basophils, abs 0.1 0.0 - 0.2 x10E3/uL [facility] - 01 Immature Granulocytes 0 Not Estab. % [facility] - 01 Immature Grans (Abs) 0.0 0.0 - 0.1 x10E3/uL [facility] - 01 Blood 07/14/2024 9:59 AM CDT 07/14/2024 Narrative [facility] - 07/15/2024 12:07 AM CDT Performed at: [address] [place] [id number] Biomedical Manager: Jack Winslow PhD, Phone: [phone] us Eddie Funez MD LAB BLOOD ORDERABLES Armida l Result Performing Organization Address [facility] Co de Phone Number [facility] - * Hepatitis B core antibody, total Blood (07/14/2024 9:59 AM CDT) [facility] Hep B core IgG/IgM Negative Negative [facility] - Blood 07/14/2024 9:59 AM CDT 07/14/2024 Narrative [facility] - 07/15/2024 5:07 AM CDT Performed at: [address] [id number] Biomedical Manager: Jack Winslow PhD, Phone: [phone] Eddie Funez MD LAB MICROBIOLOGY - GENERA L ORDERABLES Final Result Performing Organization Address [facility] de Phone Number [facility] * Hepatitis B surface antibody (immune status) Blood (07/14/2024 9:59 AM CDT) [facility] HBsAb (immune status) Non Reactive [facility] - Comment: Non Reactive: Not immune to HBV infection. Equivocal: Unable to determine if anti-HBs is present at levels consistent with immunity. Reactive: Anti-HBs concentration detected at greater than 10 mIU/mL. Individual is considered to be immune to infection with HBV. Blood 07/14/2024 9:59 AM CDT 07/14/2024 Narrative [facility] - 07/15/2024 5:07 AM CDT Performed at: [address] [id number] Biomedical Manager: Jack Winslow PhD, Phone: [phone] Eddie Funez MD LAB MICROBIOLOGY - GENERA L ORDERABLES Final Result Performing Organization Address [facility] Co de Phone Number [facility] * Hepatitis B Surface Antigen Blood (07/14/2024 9:59 AM CDT) [facility] HepBsAg Negative Negative [facility] - 01 Blood 07/14/2024 9:59 AM CDT 07/14/2024 Narrative [facility] - 07/15/2024 5:07 AM CDT Performed at: [address] [place] [id number] Biomedical Manager: Jack Winslow PhD, Phone: [phone] Eddie Funez MD LAB MICROBIOLOGY - GENERA L ORDERABLES Final Result Performing Organization Address [facility] de Phone Number [facility] * Lipid panel (07/14/2024 9:59 AM CDT) Cholesterol 125 100 - 199 mg/dL [facility] - 01 Triglycerides 62 0 - 149 mg/dL [facility] - 01 HDL Cholesterol 65 >39 mg/dL [facility] - 01 VLDL 13 5 - 40 mg/dL [facility] - 01 LDL, calculated 47 0 - 99 mg/dL [facility] - 01 Blood 07/14/2024 9:59 AM CDT 07/14/2024 Narrative [facility] - 07/15/2024 2:07 AM CDT Performed at: [address] [place] [id number] Biomedical Manager: Jack Winslow PhD, Phone: [phone] Eddie Funez MD LAB BLOOD ORDERABLES Armida l Result Performing Organization Address [facility] de Phone Number [facility] - * (ABNORMAL) Comprehensive metabolic panel (07/14/2024 9:59 AM CDT) Glucose 91 70 - 99 mg/dL [facility] - 01 BUN 10 8 - 27 mg/dL [facility] - 01 Creatinine, Serum 0.79 0.57 - 1.00 mg/dL [facility] - 01 eGFR 85 >59 mL/min/1.7 3 [facility] - 01 BUN/creat ratio 13 12 - 28 [facility] - 01 Sodium 140 134 - 144 mmol/L [facility] - 01 Potassium, sr 4.3 3.5 - 5.2 mmol/L [facility] - 01 Chloride 99 96 - 106 mmol/L [facility] - 01 CO2 26 20 - 29 mmol/L [facility] - 01 Calcium 9.0 8.7 - 10.3 mg/dL [facility] - 01 Protein, sr 6.5 6.0 - 8.5 g/dL [facility] - 01 Albumin 4.1 3.9 - 4.9 g/dL [facility] - 01 Globulin, Total 2.4 1.5 - 4.5 g/dL [facility] - 01 Bilirubin, Total 0.9 0.0 - 1.2 mg/dL [facility] - 01 Alk phos 171(H) 44 - 121 IU/L [facility] - 01 AST 53(H) 0 - 40 IU/L [facility] - 01 ALT 75(H) 0 - 32 IU/L [facility] - 01 Blood 07/14/2024 9:59 AM CDT 07/14/2024 Narrative [facility] - 07/15/2024 1:07 AM CDT Performed at: [address] [place] [id number] Biomedical Manager: Jack Winslow PhD, Phone: [phone] us Eddie Funez MD LAB BLOOD ORDERABLES Armida taveras Result [facility] - 01 * Estradiol (07/14/2024 9:39 AM CDT) [facility] Estradiol <5.0 0.0 - 54.7 pg/mL [facility] - 01 Comment: Adult Female Range Follicular phase 12.5 - 166.0 Ovulation phase 85.8 - 498.0 Luteal phase 43.8 - 211.0 Postmenopausal <6.0 - 54.7 1st trimester 215.0 - >4300.0 Kathi ECLIA methodology Blood 07/14/2024 9:39 AM CDT 07/14/2024 Narrative [facility] - 07/15/2024 4:07 AM CDT Performed at: [address] [id number] Biomedical Manager: Jack Winslow PhD, Phone: [phone] Eddie Funez MD LAB BLOOD ORDERABLES Armida l Result [facility] - 01 * MAMMOGRAPHY (10/31/2023 2:52 PM CDT) Mammography Normal Historical Provider HEALTH MAINTENANCE Final Result * HEPATITIS C SCREENING (04/06/2023) SCRIBED HCV ab nonreactive Comment:Patient had checked through GI. She showed me a copy of the results through her [facility] - Biomolecular Determination lab [facility] Historical Provider HEALTH MAINTENANCE Final Result * Colonoscopy (09/18/2016) Anatomical Region Laterality Modality Other Narrative 09/18/2016 Polypectomy; repeat in 3 years Historical Provider ENDOSCOPY PROCEDURES Armida l Result from Last 3 Months or Most Recently Relevant to Health Maintenance Insurance [facility] ADVANTAGE [facility] Address: [facility] [address] [place] [address] IDPA [facility] MEDIC[place] ADVANTAGE [facility] ADVANT[facility] IDPA Advance Directives For more information, please contact: [phone] * Full Code (Latest Code Status on File) Date Activated Date Inactivated Comments 05/20/2022 3:24 PM 05/21/2022 2:16 PM * Full Code Date Activated Date Inactivated Comments 02/12/2022 11:40 AM 02/12/2022 6:05 PM Care Teams Stock Pitcher Relationship Specialty Start Date End Date Eddie Funez MD [address] [place] [address] PCP - General Family Medicine 07/01/24 Minerva Serna MD Consulting Physician Gastroenterology 01/28/21 Alfie Vegas MD Consulting Physician Hematology 01/28/21 Toni Cintron MD [address] [place] [address] Consulting Physician Obstetrics and Gynecology 01/28/21 Brendan Thomas DPM [address] [place] [address] Consulting Physician Foot and Ankle Surg 01/28/21 Vivi Wood CNM [address] [place] [address] Nurse Practitioner Psychiatry 04/08/22 Tahmina Marvin MD [address] [facility] [address] [place] [address] Referring Physician Pain Management 04/08/22 Cristofer Alicia MD [address] [place] [address] Referring Physician Neurosurgery 04/08/22 [place] [address] [facility] [address] [place] [address] Consulting Physician Endocrinology Diabetes & Metabolism 04/08/22 Roberto Carlos Fregoso MD [address] [facility] [place] [address] Referring Physician Otolaryngology 04/08/22 García Siddiqui DO [address] [facility] [place] [address] Referring Physician Surgery 04/08/22 Ana Delarosa MD [address] [place] [address] Consulting Physician Sleep Medicine 04/08/22 [place] [address] [place] [address] Surgeon Orthopedic Surgery 04/08/22 [place] [address] [place] [address] Referring Physician Orthopedic Surgery 04/08/22 [place] [address] [facility] [address] [place] [address] Consulting Physician Cardiology 04/08/22
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
--- OUTSIDE RECORDS SUMMARY | 2024-08-10 16:35 | XMS_ITS | Continuity of Care Document ---
Author Organization [facility] Address [address] [address] [place] [address] Phone Care Team Providers Care Billing Coordinator Name Role Phone Zay Peraza DPM Unavailable [...] Providers Copied on Encounter [facility], [address] [place] [address], [facility], tel:[phone] [facility] S/P foot surgery [address] [place], [place], [place], [id number] , . tel:[phone] Referring Provider: Eddie Gutiérrez, [address] [place] [address], [address] . tel:[phone] [facility], [address] [place] [address], [address], tel:[phone] [facility] S/P foot surgery [address] [place], [place], [place], [id number] , . [phone] Referring Provider: Eddie Gutiérrez, [address] [place] [address], [address] . tel:[phone] [facility], [address], [address], tel:[phone] [facility] S/P foot surgeryAtrophic disorder of skin, unspecified May-2 8 [address] [place], [place], [place], [id number] , [place]. tel: [phone] Referring Provider: Eddie Gutiérrez, [address] [facility], [place], [address] . tel:[phone] [facility], [address] [facility] [address], [place], [address], tel:[phone] [facility] S/P foot surgery May-1 5 [place], [place], [place], [id number] , [place]. tel:[phone] Referring Provider: Eddie Gutiérrez, [address] [place] [address], [place], [address] . tel:[phone] [facility], [address] [facility] [address] [facility] [address], [place], [place], [facility], [place] tel:[phone] [facility] Fat pad atrophy of footMorton's neuroma of left footExostosis of left foot May-0 5 [place], [place], [place], [id number] , [place]. tel:[phone] OFFICE/OUTPA TIENT VISIT EST [facility], [address] [facility] [address] [facility] [address], [place], [address], [place] tel:[phone] [facility] Injury of plantar plate of left foot, initial encounterFat pad atrophy of footMetatarsalgi a, left footBone spur of left footMorton's neuroma of left foot Apr- 5 [place] [facility] [address], [place], [place], [id number] , [place]. tel:[phone] Referring Provider: Eddie Gutiérrez, [address] [facility], [place], [address] . tel:[phone] [facility], [address], [place], [address], [place] tel:[phone] [facility] Fat pad atrophy of footMetatarsalgi a, left foot [address] [place], [place], [place], [id number] , [place]. tel:[phone] OFFICE/OUTPA TIENT VISIT EST [facility], [address], [place], [address], [place] tel:[phone] [facility] [place] Injury of plantar plate of left foot, initial encounterFat pad atrophy of footMetatarsalgi a, left foot Feb- 4 [place], [place], [place], [id number] , [place]. [phone] Referring Provider: Eddie Gutiérrez, [address] [place] [address], [address] . tel:[phone] OFFICE/OUTPA TIENT VISIT NEW [facility], [address], [place], [address], [place] tel:[phone] [facility] [place] Metatarsalgia, left footFat pad atrophy of footInjury of plantar plate of left foot, initial encounter [address] [place], [place], [place], [id number] , [place]. [phone] Referring Provider: Eddie Gutiérrez, [address] [place] [address], [address] . tel:[phone] Family History Family Member Type Diagnosis Age At Onset No Information Payers Payer name Insurance type Covered libertarian ID Zak plascenciajune(s) [facility] Medicare Advantage HMO/POS [id number] Social History Type Description Quantity Date [...]
--- OUTSIDE RECORDS SUMMARY | 2024-08-10 16:35 | XMS_ITS | Encounter Summary ---
Author Organization [facility] Address [address] [facility] [place] [address] Phone Care Team Providers Care Vice President Of Software Engineering Name Role Phone Mary Diaz MD Primary Care Provider [phone] Reason for Referral * Radiology Services (Routine) - Closed Specialty Diagnoses / Procedures Referred By Victor Hugo nobles Referred To Contact Radiology Diagnoses Metatarsalgia Hammertoe of left foot Pre-op testing Procedures EKG 12 LEAD Yamilex Beyer DPM Phone: tel: fax: Referral ID Status Reason Start Date Expiration Date Visits Re quested Visits Authorized [id number] Closed 10/30/2022 1 1 Encounter Details Date Type Department Care Team (Latest Contact Info) Description 10/30/2022 Transcribe Orders [facility] Preop/Pacu II [address] [place] [address] Yamilex Beyer DPM [address] [place] [address] Metatarsalgia (Primary Dx); Hammertoe of left foot; Pre-op testing Social History Tobacco Use Types Packs/Day Years Used Date Smoking Tobacco: Former Cigarettes 3 37 Smokeless Tobacco: Never Alcohol Use Standard Drinks/Week Comments No 0 (1 standard drink = 0.6 oz pur e alcohol) Comments No Sex and Gender Information Value Date Recorded Sex Assigned at Female 05/07/2023 5:26 AM SALES STRATEGY MANAGER Legal Sex Female 12:08 AM CDT Gender Identity Female 05/07/2023 5:26 AM SALES STRATEGY MANAGER Sexual Orientation Straight 05/07/2023 5: 26 AM SALES STRATEGY MANAGER 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 Not on file [...] QTC CALCULATION 440 ms EXTERNAL EKG P [place] 2 degrees EXTERNAL EKG R [place] 79 degrees EXTERNAL EKG T [place] 75 degrees EXTERNAL EKG 11/11/2022 2:45 PM CDT Impressions EXTERNAL EKG - 11/14/2022 1:12 PM CDT Normal sinus rhythm Normal ECG No previous ECGs available Confirmed by Freddy Beaulieu ([id number]) on 11/14/2022 1:12:12 PM Narrative Procedure Note Freddy Witt MD - 11/14/2022 IMPRESSION: Normal sinus rhythm Normal ECG No previous ECGs available Confirmed by Freddy Beaulieu ([id number]) on 11/14/2022 1:12:12 PM us Yamilex Beyer DPM IMG ECG ORDERABLES Final Res ult EXTERNAL EKG * (ABNORMAL) BASIC METABOLIC PANEL W/ CALCIUM TOTAL (11/11/2022 2:39 PM CDT) SODIUM 145 136 - 145 mmol/L 11/11/2022 5:08 PM CDT [facility] POTASSIUM 2.9(L) 3.5 - 5.1 mmol/L 11/11/2022 5:08 PM CDT [facility] CHLORIDE 103 98 - 107 mmol/L 11/11/2022 5:08 PM CDT [facility] CO2, VENOUS 30 22 - 30 mmol/L 11/11/2022 5:08 PM CDT [facility] ANION GAP 14.9 <18.0 mmol/L 11/11/2022 5:08 PM CDT [facility] GLUCOSE 77 70 - 99 mg/dL 11/11/2022 5:08 PM CDT [facility] BUN 9(L) 10 - 20 mg/dL 11/11/2022 5:08 PM CDT [facility] CREATININE, BLOOD 0.68 0.60 - 1.00 mg/dL 11/11/2022 5:08 PM CDT [facility] BUN/CREATININE RATIO 13 12 - 20 ratio 11/11/2022 5:08 PM CDT [facility] CALCIUM 9.1 8.7 - 10.5 mg/dL 11/11/2022 5:08 PM CDT [facility] IS THE PATIENT REQUIRED TO BE FASTING? No 11/11/2022 5:08 PM CDT [facility] GFR, ESTIMATED >60 >=60 11/11/2022 5:08 PM T [facility] Comment: Creatinine Clearance is the preferred criteria for selecting drug dose adjustments in renally impaired patients. The GFR is provided as additional pertinent clinical information. GFR is reported in mL/min/1.73 sq m. Calculation based on the Chronic Kidney Disease Epidemiology Collaboration (CKD- EPI) equation refit without adjustment for race. GFR, EST. >60 >=60 023 5:08 PM CDT [facility] GFR, EST. NONAFRICAN >60 >=60 11/11/2022 5:08 PM CDT [facility] Blood Venipuncture / Unknown 11/11/2022 2:39 PM CDT 11/11/2022 4:38 PM CDT us Yamilex Beyer DPM CHEMISTRY ORDERABLES Final R esult [facility] [address] [place] [address] documented in this encounter Visit Diagnoses Diagnosis Metatarsalgia- Primary Enthesopathy of ankle and tarsus, unspecified Hammertoe of left foot Pre-op testing Preoperative examination, unspecified Metatarsalgia Enthesopathy of ankle and tarsus, unspecified Hammertoe of left foot Pre-op testing Preoperative examination, unspecified documented in this encounter Care Teams Vice President Of Software Engineering Relationship Specialty Start Date End Date Mary Diaz MD [address] [place] [address] [address] VARMA [address] [place] [address] PCP - General Family Medicine 06/30/22 documented as of this encounter
--- OUTSIDE RECORDS SUMMARY | 2024-08-10 16:35 | XMS_ITS | Clinical Summary ---
Author Organization [facility] Address [address] [place] [address] Care Team Providers Care Spinning Machine Tender Name Role Phone Evon Sernatera Phillips MD Unavailable Alfie Vegas MD Unavailable Toni Cintron MD Unavailable Brendan Thomas DPM Unavailable [phone] Vivi Wood CNM Unavailable Tahmina Marvin MD Unavailable Cristofer Alicia MD Unavailable Prashanth Lee MD Unavailable Roberto Carlos Fregoso MD Unavailable García Siddiqui DO Unavailable Ana Delarosa MD Unavailable Orion Sommer MD Unavailable Alban Hernandez MD Unavailable Rehana Mckeon MD Unavailable Eddie Funez MD Primary Care Provider [phone] Allergies Active Allergy Reactions Criticality Noted Date Comments Adhesive Other (See comments) Low 05/16/2022 Tears skin Bacitracin Rash Medium 02/04/2024 Neomycin Sulfate Rash Medium 02/04/2024 Oudvcxyi-Eevcckmjkr-Zqqskqab n Itching,Rash Medium 06/07/2015 Polymyxin B Rash [...] Nasal saline spray (Simply saline, Little Remedies, [place], Gardner) 2 second sprays or 2 squeezes into [...] evaluation Assessment & Plan (04/30/2023 5:32 PM IRONWORKER WIRE FENCE ERECTOR): Noted on more recent labs. Patient had some blood work through her specialists. I have encouraged her to get me a copy of these to review Transaminitis 04/30/2023 Assessment & Plan (04/30/2023 5:35 PM IRONWORKER WIRE FENCE ERECTOR): Present since least 2021. The elevated liver [...] 10/28/2022 Assessment & Plan (04/30/2023 5:32 PM IRONWORKER WIRE FENCE ERECTOR): Chronic calcification noted on prior imaging. Risk [...] symptoms Assessment & Plan (04/30/2023 5:32 PM IRONWORKER WIRE FENCE ERECTOR): Chronic but symptomatically improving. Working with Podiatry. [...] needed. Assessment & Plan (05/13/2023 11:09 AM IRONWORKER WIRE FENCE ERECTOR): Chronic problem. Clinically euthyroid at this time. Reviewed recent labs 02/21 & 02/27 that were vastly different. Will repeat TFTs today at [facility]. Verified that she uses mychart. Aware to check results/results letter in mychart. Will contact by phone if needed. Aware to take 1st thing in morning, 30-60 minutes before food/drink/other medications. Assessment & Plan (04/30/2023 5:31 PM IRONWORKER WIRE FENCE ERECTOR): Chronic. Follows with endocrinology. Continue thyroid medication per specialist Assessment & Plan (01/28/2023 11:38 AM IRONWORKER WIRE FENCE ERECTOR): Chronic problem. Improved on current levothyroxine 112mcg [...] mychart. Will contact by phone if needed. Will send 90 day refill to [facility] once labs result Verified phone #/address if I need to call her. Pelvic floor dysfunction 04/24/2022 Assessment & Plan (04/24/2022 8:51 AM IRONWORKER WIRE FENCE ERECTOR): -no myofascial pain noted on today's exam -continue performing PFPT exercises Vaginal atrophy 04/24/2022 Assessment & Plan (04/24/2022 8:51 AM IRONWORKER WIRE FENCE ERECTOR): -discussed decreasing VET to twice per week, [...] working Assessment & Plan (04/24/2022 8:55 AM IRONWORKER WIRE FENCE ERECTOR): -she is not using the the #1 [...] well Assessment & Plan (04/30/2023 5:31 PM IRONWORKER WIRE FENCE ERECTOR): Chronic. Struggles some with anxiety at times [...] legs Assessment & Plan (04/30/2023 5:31 PM IRONWORKER WIRE FENCE ERECTOR): Chronic. Continue medication care per pain management [...] report. Assessment & Plan (04/30/2023 5:33 PM IRONWORKER WIRE FENCE ERECTOR): Noted previously. These were not mentioned on her CT scan when done to evaluate for pulmonary embolism in August. We will plan 1 year follow-up CT in August to ensure no residual pulmonary nodules needing additional monitoring Cervical post-laminectomy syndrome 05/09/2021 Overview (04/08/2022): Mena pain shahram, Dr. Marvin Assessment & Plan (10/30/2023 6:32 PM CDT): Chronic. Continue working with the pain management. Stable Assessment & Plan (04/30/2023 5:31 PM IRONWORKER WIRE FENCE ERECTOR): Chronic. Continue medication and care per pain management Assessment & Plan (10/28/2022 7:11 PM CDT): Chronic. Continue medication and care per pain management Long-term current use of opiate analgesic 2021 Overview (04/08/2022): Sees pain management, Dr. Marvin Assessment & Plan (04/30/2023 5:33 PM IRONWORKER WIRE FENCE ERECTOR): Chronic. Medication care per pain management Osteopenia of multiple sites 02/12/2021 Assessment & Plan (07/13/2024 9:17 PM CDT): Stable, continue calcium supplementation and weight-bearing exercises to maintain bone density Depressive disorder 01/28/2021 Overview (04/08/2022): Seecharli psychVivi Assessment & Plan (04/30/2023 5:30 PM IRONWORKER WIRE FENCE ERECTOR): Chronic. Mood is stable. Continue medication care [...] monoplegia Assessment & Plan (04/30/2023 5:30 PM IRONWORKER WIRE FENCE ERECTOR): Chronic. Continue medication and care per stage setting painter apprentice Assessment & Plan (10/28/2022 7:11 PM CDT): Chronic. Continue medication and care per stage setting painter apprentice Primary localized osteoarthritis of pelvic regio n and thigh 01/28/2021 Tobacco dependence in remission 01/28/2021 Assessment & Plan (04/30/2023 5:33 PM IRONWORKER WIRE FENCE ERECTOR): Chronic. Patient will be due for updated [...] management Assessment & Plan (04/30/2023 5:27 PM IRONWORKER WIRE FENCE ERECTOR): Chronic. Can continue medication care for pain management. She is on gabapentin, duloxetine, hydrocodone, and ropinirole Assessment & Plan (10/28/2022 7:11 PM CDT): Chronic. Can continue medication care for pain management. She is on gabapentin, duloxetine, hydrocodone known and ropinirole Assessment & Plan (02/14/2020 4:43 PM IRONWORKER WIRE FENCE ERECTOR): Patient has 10 day history of low [...] that she continue with Dr. Carreno in [place] as she sees no need to have [...] 03/24/2017 Assessment & Plan (04/30/2023 5:31 PM IRONWORKER WIRE FENCE ERECTOR): Chronic. Symptomatically has improved. Monitor. Assessment & [...] doses Assessment & Plan (04/30/2023 5:30 PM IRONWORKER WIRE FENCE ERECTOR): Chronic. Follows with endocrinology. Continue medication and care per specialists Assessment & Plan (02/12/2021 12:34 PM IRONWORKER WIRE FENCE ERECTOR): With subclinical hyperthyroidism. Will recheck free T4 [...] adjustment Assessment & Plan (04/30/2023 5:27 PM IRONWORKER WIRE FENCE ERECTOR): Chronic. Breathing is relatively stable. Denies significant [...] continue Assessment & Plan (04/30/2023 5:30 PM IRONWORKER WIRE FENCE ERECTOR): Chronic. Patient has a degree of transaminitis [...] now. Assessment & Plan (04/30/2023 5:31 PM IRONWORKER WIRE FENCE ERECTOR): Chronic. Blood pressure is very tightly controlled [...] (04/05/2022): Added automatically from request for surgery [id number] Exposure of implanted vaginal mesh 11/20/2021 04/08/2022 Overview (11/20/2021): Added automatically from request for surgery [id number] Radiculopathy, lumbosacral region 05/09/2021 04/08/2022 Other obesity due to excess calories 05/09/2021 04/08/2022 Gastroesophageal reflux disease 01/28/2021 04/08/2022 Lymphadenopathy 01/28/2021 04/08/2022 Mild chronic obstructive pulmonary disease 01/28/2021 10/28/2022 Encounter to establish care 01/28/2021 04/08/2022 Assessment & Plan (01/28/2021 2:15 PM IRONWORKER WIRE FENCE ERECTOR): A visit to establish care has been performed today. Flor Gallego is not up to date on screening tests. She is in need of Mammogram, Lung cancer screen and hepatitis c screen- these have been ordered. She is up to date on needed preventative vaccinations. Cervical radiculopathy 01/28/202104/08 Assessment & Plan (01/28/2021 2:17 PM IRONWORKER WIRE FENCE ERECTOR): Her pain management was covered by her neurologist will need new pain doctor (her neurologist is leaving the area at the end of the month) Erythrocytosis 02/24/2020 04/08/2022 Pachyderma of larynx 06/26/2017 023 WILFRED (obstructive sleep apnea) 06/26/2017 04/08/2022 Hot thyroid nodule 02/20/2017 Assessment & Plan (03/28/2022 1:56 PM IRONWORKER WIRE FENCE ERECTOR): Chronic problem, not at goal. She has h/o toxic MNG, with both hot and possible cold nodule on I-123 scan, low risk (per [facility]) FNA x 2 in [id number]. She is having increasing trouble swallowing and [...] 06/04/2022 Assessment & Plan (02/12/2021 12:45 PM IRONWORKER WIRE FENCE ERECTOR): Risk of cardiac arrhythmias with discussed. The patient is following with cardiology Bone density also requested due to the risk of bone density loss in patient with subclinical hyperthyroidism Assessment & Plan (02/06/2017 4:43 PM IRONWORKER WIRE FENCE ERECTOR): Check TFT's Treat as indicated Assessment & Plan (01/09/2017 4:27 PM CDT): Long standing, related to MNG Repeat TFT's Recommendations to follow Most likely will watch without specific intervention. Multinodular goiter (nontoxic) 01/09/2017 09/26/2022 Assessment & Plan (02/12/2021 12:55 PM IRONWORKER WIRE FENCE ERECTOR): With FNA showing follicular lesion of unknown significance. With [facility] molecular testing, negative.less than 4 % change of malignancy. Will repeat thyroid ultrasound if not changes will continue monitoring Assessment & Plan (02/06/2017 4:42 PM IRONWORKER WIRE FENCE ERECTOR): Differential diagnosis would include benign nodule (macrofollicular [...] Description 07/26/2024 2:00 PM CDT Office Visit [facility] Diabetes and Endocrinology [address] [place] [phone] Mariam Shah NP Postoperative hypothyroidism (Primary Dx) 07/15/2024 Results [facility] [address] [phone] Eddie Funez MD Estradiol, CBC with auto differential, Comprehensive metabolic panel, Additional followed-up results: 4 07/01/2024 4:00 PM CDT [facility] Visit [facility] [address] [phone] Eddie Funez MD Need for hepatitis B screening test (Primary Dx); Encounter to establish care with new doctor; Postoperative hypothyroidism; Encounter for screening mammogram for malignant neoplasm of breast; Lung nodules; Post-menopause; COPD, mild (HCC); Pure hypercholesterolemia; Primary fibromyalgia syndrome; Osteopenia of multiple sites 06/23/2024 9:35 AM CDT Office Visit [address] [place] [phone] Eyers, STACEY Godwin Grade III hemorrhoids 05/13/2024 Results [facility] [address] [phone] Eddie Funez MD SCAN - RADIOLOGY/IMAGING from Last 3 Months Immunizations Immunization Administration [...] 11/20/2021 Added automatically from request for surgery [id number] Chronic low back pain Restless leg Erythrocytosis 03/09/2020 secondary erythr ocytosis Jak2 - saw Heme Goiter 04/05/2022 Added automatica lly from request for surgery [id number] Coronary artery calcificatio n seen on CAT scan 10/28/2022 Ocular migraine Erosion of bladder suspension mesh Hammer toes of both feet Bulging of thoracic interver tebral disc Osteoarthritis Sciatica Kidney problem atopic kidney Family History Medical History Relation Name Comments Alcohol abuse Father Elmo Smyth Early Father Elmo Smyth Heart attack Father Elmo Smyth Heart disease Father Elmo Smyth COPD Maternal Grandfather Issa Smipson Diabetes Maternal Grandfather Issa Simpson Cancer Maternal [...] on file Legal Sex Female 7:24 PM IRONWORKER WIRE FENCE ERECTOR Gender Identity Female 02/08/2020 5:48 PM IRONWORKER WIRE FENCE ERECTOR Sexual Orientation Straight 02/08/2020 5: 48 PM IRONWORKER WIRE FENCE ERECTOR Obstetrics History Para Term AB IAB SAB [...] 07/26/2024 1:43 PM CDT Plan of Treatment Health Maintenance Due Date Last Done Comments Colon Cancer Screening-Colonoscopy 09/19/2019 09/18/2016 Covid-19 Vaccine (2023-04 5 season) 2023 05/13/2023, 05/01/2022, 03/30/2021, Additional history exists Regular Well Visit/Exam 18-64 04/30/2024 04/30/2023 Breast Cancer Screening-Mammogram 10/30/2024 10/31/2023, 06/26/2023, 06/18/2022 Influenza Vaccine (Season Ended) 2024 05/13/2023, 05/01/2022, 01/24/2021, Additional history exists Depression Screening 07/01/2025 07/01/2024, 04/30/2023, 04/08/2022, Additional history exists DTaP/Tdap/Td Vaccine (3 - Td or Tdap) 05/13/2033 05/13/2023, 01/11/2020 Colon Cancer Screening-CT Colonography Discontinued 09/18/2016 Colon Cancer Screening-DNA Stool Discontinued 09/19/19 17 Colon Cancer Screening-FIT Discontinued 09/18/2016 Colon Cancer Screening-Sigmoidoscopy Discontinued 09/18/2016 Zoster Vaccine Completed 03/30/2021, 05/2020, 01/24/2021 Hepatitis C Screening Completed 04/06/2023, 024 Pneumococcal vaccine <65 Completed 05/13/2023 Hepatitis B Screening Completed 07/14/2024 Medical Devices Implanted Type Area Gas Meter Reader Device Identifier Shelf Expiration Date Model / Serial / Lot Ethicon Endo Surgery Tvt Prolene 45x1.1cm Tape Mesh Transvaginal Blue [id number] - [id number] Implanted:Qty: 1 on 05/29/2022 by Aura Driscoll MD at [facility] Mesh N/A: Urethra Ethicon Endo Surgery [id number] 11/21/2024 [id number] / / [employer] [employer] Sls-Clip Ligate Triangular Wire Kathleen Groove Small Chevron Clip Latex Free [id number] - [id number] Implanted:Qty: 2 on 05/20/2022 by Sameer Alan MD at [facility] [employer] [id number] / / [employer] [employer] Sls-Clip Ligate Triangular Wire Kathleen Groove Small Chevron Clip Latex Free [id number] - [id number] Implanted:Qty: 2 on 05/20/2022 by Sameer Alan MD at [facility] [id number] / / Procedures Procedure Name Priority Date/Time [...] - 07/15/2024 12:07 AM CDT Performed at: [address] [place] [id number] Plant Propagator: Jack Winslow PhD, Phone: [phone] Eddie Funez MD LAB BLOOD ORDERABLES Armida taveras Result [facility] - * Hepatitis B core antibody, total Blood (07/14/2024 9:59 AM CDT) [facility] Hep B core IgG/IgM Negative Negative [facility] - 01 Blood 07/14/2024 9:59 AM CDT 07/14/2024 Narrative [facility] - 07/15/2024 5:07 AM CDT Performed at: [address] [place] [address] [place] [id number] Plant Propagator: Jack Winslow PhD, Phone: [phone] us Eddie Funez MD LAB MICROBIOLOGY - GENERA L ORDERABLES Final Result Performing Organization Address [facility] Co de Phone Number [facility] * Hepatitis B surface antibody (immune status) Blood (07/14/2024 9:59 AM CDT) HBsAb (immune status) Non Reactive [facility] - Comment: Non Reactive: Not immune to HBV infection. Equivocal: Unable to determine if anti-HBs is present at levels consistent with immunity. Reactive: Anti-HBs concentration detected at greater than 10 mIU/mL. Individual is considered to be immune to infection with HBV. Blood 07/14/2024 9:59 AM CDT 07/14/2024 Narrative [facility] - 07/15/2024 5:07 AM CDT Performed at: - [address] [id number] Plant Propagator: Jack Winslow PhD, Phone: [phone] Eddie Funez MD LAB MICROBIOLOGY - GENERA L ORDERABLES Final Result Performing Organization Address [facility] de Phone Number [facility] * Hepatitis B Surface Antigen Blood (07/14/2024 9:59 AM CDT) HepBsAg Negative Negative [facility] - Blood 07/14/2024 9:59 AM CDT 07/14/2024 Narrative [facility] - 07/15/2024 5:07 AM CDT Performed at: [address] [id number] Plant Propagator: Jack Winslow PhD, Phone: [phone] Eddie Funez MD LAB MICROBIOLOGY - GENERA L ORDERABLES Final Result Performing Organization Address [facility] Co de Phone Number [facility] * Lipid panel (07/14/2024 9:59 AM [...] - 07/15/2024 2:07 AM CDT Performed at: 01 - [facility] [id number] Plant Propagator: Jack Winslow PhD, Phone: [phone] us Eddie Funez MD LAB BLOOD ORDERABLES Armida l Result [facility] 01 * (ABNORMAL) Comprehensive metabolic panel (07/14/2024 9:59 AM CDT) Pathologist [facility] Glucose 91 70 - 99 mg/dL [facility] [...] - 07/15/2024 1:07 AM CDT Performed at: [address] [place] [id number] Plant Propagator: Jack Winslow PhD, Phone: [phone] Eddie Funez MD LAB BLOOD ORDERABLES Armida l Result Performing Organization Address [facility] Co de Phone Number [facility] - * Estradiol (07/14/2024 9:39 AM CDT) Pathologist [facility] Estradiol <5.0 0.0 - 54.7 pg/mL [facility] - 01 Comment: Adult Female Range Follicular phase 12.5 - 166.0 Ovulation phase 85.8 - 498.0 Luteal phase 43.8 - 211.0 Postmenopausal <6.0 - 54.7 1st trimester 215.0 - >4300.0 Kathi ECLIA methodology Blood 07/14/2024 9:39 AM CDT 07/14/2024 Narrative [facility] - 07/15/2024 4:07 AM CDT Performed at: [address] [place] [id number] Plant Propagator: Jack Winslow PhD, Phone: [phone] Eddie Funez MD LAB BLOOD ORDERABLES Armida l Result Performing Organization Address City/[facility]/ZIP Co de Phone Number [facility] - * MAMMOGRAPHY (10/31/2023 2:52 PM CDT) Mammography Normal Historical Provider HEALTH MAINTENANCE Final Result * HEPATITIS C SCREENING (04/06/2023) SCRIBED HCV ab nonreactive Comment:Patient had checked through GI. She showed me a copy of the results through her mobile lab [facility] Medias garcia us Historical Provider HEALTH MAINTENANCE Final Result * Colonoscopy (09/18/2016) Anatomical Region Laterality Modality Other Narrative 09/18/2016 Polypectomy; repeat in 3 years us Historical Provider ENDOSCOPY PROCEDURES Armida l Result from Last 3 Months or Most Recently Relevant to Health Maintenance Insurance [facility] MEDICARE ADVANTAGE IDPA [facility] [place] [address] [facility] [address] [place] [address] Advance Directives For more information, please contact: [phone] * Full Code (Latest Code Status on File) Date Activated Date Inactivated Comments 05/20/2022 3:24 PM 05/21/2022 2:16 PM * Full Code Date Activated Date Inactivated Comments 02/12/2022 11:40 AM 02/12/2022 6:05 PM Care Teams Spinning Machine Tender Relationship Specialty Start Date [place] [address] PCP - General Family Medicine 07/01/24 Minerva Serna MD Consulting Physician Gastroenterology 01/28/21 Alfie Vegas MD Consulting Physician Hematology 01/28/21 Toni Cintron MD [address] [place] [address] Consulting Physician Obstetrics and Gynecology 01/28/21 Brendan Thomas DPM [address] [place] [address] Consulting Physician Foot and Ankle Surg 01/28/21 Vivi Wood CNM [address] [place] [address] Nurse Practitioner Psychiatry 04/08/22 Tahmina Marvin MD [address] [facility] [address] [place] [address] Referring Physician Pain Management 04/08/22 Cristofer Alicia MD [address] [facility] [address] [place] [phone] Referring Physician Neurosurgery 04/08/22 [place] [address] [facility] [address] [place] [address] Consulting Physician Endocrinology Diabetes & Metabolism 04/08/22 Roberto Carlos Fregoso MD [address] [facility] [place] [address] Referring Physician Otolaryngology 04/08/22 García Siddiqui DO [address] [place] [address] Referring Physician Surgery 04/08/22 Ana Delarosa MD [address] [place] [address] Consulting Physician Sleep Medicine 04/08/22 [place] [address] [place] [address] Surgeon Orthopedic Surgery 04/08/22 [place] [address] [place] [address] Referring Physician Orthopedic Surgery 04/08/22 [place] [address] [facility] [address] [place] [address] Consulting Physician Cardiology 04/08/22
--- NOTE | 2024-08-10 17:42 | ED.NAVMDI ---
HPI - Nausea/Vomiting/Diarrhea General Chief complaint: Abdominal Pain <CHADWICK Reynolds Last Filed: 08/10/24 17:51> Stated complaint: Liver poisoning, vomiting <CHADWICK Reynolds Last Filed: 08/10/24 17:51> Time Seen by Provider: 08/10/24 17:42 <CHADWICK Reynolds Last Filed: 08/10/24 17:51> Focused HPI: Patient is a 63 y/o female who presents to the ED with c/o N/V. Patient reports she attempted suicide by OD on 07/31. She took approx 30-35 Hydrocodone 10/325mg in an attempt to kill herself. She was seen here and admitted to the ICU for further eval, liver failure. She was discharged on 08/03. States she was able to keep down food and drink at the time of her discharge, but began having N/V again yesterday. States she has been unable to keep anything down. C/o abdominal pain, headache. Also reports subjective fevers, chills, diaphoresis, diarrhea. Denies any SI or HI currently. Denies any other drug use, ETOH use, attempts at harming herself. GENERAL: Mildly ill-appearing, well-nourished, and in no acute distress. HEAD: Normocephalic, atraumatic. CHEST: Clear to auscultation. ?No respiratory distress. HEART: Tachycardic with regular rhythm.? SKIN: Faint jaundice NEURO: ?Alert and oriented x3. Patient screened in triage and initial orders placed.? ?Additional care and disposition to be based upon?diagnostic testing and treatment. <CHADWICK Reynolds Last Filed: 08/10/24 17:51> Source: patient and old records reviewed <CHADWICK Reynolds Filed: 08/10/24 17:51> Mode of arrival: ambulatory <CHADWICK Reynolds Last Filed: 08/10/24 17:51> Limitations: no limitations <CHADWICK Renyolds Last Filed: 08/10/24 17:51> History of Present Illness HPI Narrative: agree with DIAMOND <Brenna Marx MD - Last Filed: 08/11/24 01:29> Related Data Home medications: Home Medications ?Medication ?Instructions ?Recorded ?Confirmed ?Last Taken ?Type calcium citrate 200 mg PO DAILY 09/26/20 08/01/24 07/31/24 09:00 History cyclobenzaprine 10 mg tablet 10 mg PO .qd 09/07/21 08/01/24 07/30/24 21:00 History spironolactone 25 mg tablet 25 mg PO DAILY 07/08/22 08/01/24 07/30/24 21:00 History levothyroxine 100 mcg capsule 112 mcg PO DAILY 11/04/22 08/01/24 07/31/24 09:00 History rosuvastatin 20 mg tablet 20 mg PO DAILY 11/04/22 08/01/24 07/30/24 21:00 History tiotropium bromide 18 mcg capsule 1 cap inhalation DAILY 11/03/23 08/01/24 Unknown History with inhalation device (Spiriva with HandiHaler) albuterol 90 mcg-budesonide 80 2 inh inhalation Q6H PRN shortness 08/01/24 08/01/24 Unknown History mcg/actuation HFA aerosol inhaler of breath (Airsupra) estradiol 0.01% (0.1 mg/gram) 1 g vaginal 3XW PRN hormones 08/01/24 08/01/24 Unknown History vaginal cream gabapentin 100 mg capsule 100 mg PO BID 08/01/24 08/01/24 07/30/24 21:00 History potassium chloride 20 mEq 20 meq PO DAILY 08/01/24 08/01/24 07/31/24 09:00 History tablet,extended release(part/cryst) <Randa Dior PA-C - Last Filed: 08/10/24 17:51> Allergies/Adverse reactions: Allergies Allergy/AdvReac Type Severity Reaction Status Date / Time poison sumac extract Allergy Severe Rash Verified 05/08/24 13:12 adhesive tape AdvReac Mild Rash Verified 05/08/24 13:12 bacitracin (From Neosporin AdvReac Mild Rash Verified 05/08/24 13:12 ([id number])) neomycin (From Neosporin AdvReac Mild Rash Verified 05/08/24 13:12 ([id number])) polymyxin B (From Neosporin AdvReac Mild Rash Verified 05/08/24 13:12 ([id number])) <Randa Dior PA-C - Last Filed: 08/10/24 17:51> Review of Systems Review of Systems: All systems reviewed & are unremarkable except as noted in HPI and below <Brenna Marx MD - Last Filed: 08/11/24 01:29> [facility] Past Medical History Medical History: Medical History (Updated 08/11/24 @ 00:00 by Background Daemon) Major depressive disorder, recurrent severe without psychotic features LPRD (laryngopharyngeal reflux disease) Vasomotor rhinitis Gallbladder disorder RLS (restless legs syndrome) Heart murmur History of tobacco abuse Quit 2008 Obstructive sleep apnea Resolved after weight loss surgery with a 240 lb weight loss most recent polysomnogram 2021 Osteoporosis Arthritis of shoulder region, right Subacromial impingement of right shoulder Hair loss Psoriasis Wears glasses Hearing loss Chronic headaches Ectopic kidney Spondylosis of lumbar spine Ocular migraine Vitamin D deficiency Female stress incontinence Osteoarthritis of knees, bilateral Hot thyroid nodule Tea's thyroiditis Depression Fibromyalgia Hyperlipidemia DDD (degenerative disc disease) Hypertension Asthma Venous reflux <Randa Dior PA-C - Last Filed: 08/10/24 17:51> Surgical History Surgical History: Surgical History H/O thyroidectomy (05/29/22) History of tubal ligation History of ear, nose, and throat (ENT) surgery (~2013) sinus cautery History of hysterectomy, supracervical (07/25/10) History of endometrial ablation (01/04/10) hscope novasure ablation History of dilation and curettage (12/07/09) hscope d&c/polypectomy x3 others History of right hip replacement (01/03/21) History of sleeve gastrectomy (06/23/20) 240 lb weight loss History of foot surgery Hammer Toe 2002 History of fusion of cervical spine History of cholecystectomy History of knee surgery PCL reconstruction 01/12/15 Dr. Sommer H/O colonoscopy with polypectomy 03/24/02 <Randa Dior PA-C - Last Filed: 08/10/24 17:51> Family History Family History: Family History Father Acute myocardial infarction Myocardial infarction Hypertension Grandparent Diabetes mellitus Carcinoma of colon Mother Lung cancer COPD (chronic obstructive pulmonary disease) Sibling Lung cancer Other Family history of cardiovascular disease <Randa Dior PA-C - Last Filed: 08/10/24 17:51> Social History Social History: Social History Social History: Patient lives in [place] with her . She used to smoke up to 3 packs of cigarettes per day but quit smoking 2008. She denies history of heavy alcohol use. She does smoke marijuana daily. She reports that she has been disabled for 20 or 30 years. Code status: Full code Surrogate decision maker: Smoking packs per day: 3 Smoking cigarettes per day: 60.0 Years smoked: 37 Smoking pack-years: 111.00 Smoking status: Former smoker Smoking end date: 06/22/08 Additional smoking assessment comments: 2-3 packs a day Alcohol intake: former Substance use: current Substance use type: marijuana Other substance usage details: medical marijuana Last use: daily Do You Feel Safe in your Home?: No Lack of Transportation: No Lack of Food: Never True Current Housing: I Have Housing Concerned About Future Housing: No Difficulty Paying Gas/Electric Bills: No Difficulty Paying for Meds: No Currently Unemployed: No Education: Trade/Vocational Certificate Difficulty w/ Childcare or Family Care: No Living arrangements: other Additional living arrangements comments: Occupation/Education: unemployed Additional occupation/education comments: disabled Gender identity (if verbalized by the patient): Female Sexual Orientation (if Verbalized by the Patient): Straight or Heterosexual Spiritual care concerns: No <Randa Dior PA-C - Last Filed: 08/10/24 17:51> Exam Narrative: EXAMINATION OF ORGAN SYSTEMS/BODY AREAS: Constitutional: Vital signs per nursing GENERAL:[No acute distress, non-toxic appearing.] HEAD: Normal with no signs of head trauma. EYES: EOMI, conjunctiva normal ENT: Hearing grossly intact LUNGS: Nonlabored breathing. HEART: [Regular rate and rhythm] ABD: [Soft], [nontender to palpation] EXT: Normal range of motion SKIN: [No rashes or lesions.] NEURO: [Alert and oriented x 3. No gross focal sensory or strength deficits.] PSYCH: Normal affect <Brenna Marx MD - Last Filed: 08/11/24 01:29> Course Vital Signs Vital signs: Vital Signs Temperature 86 F L 08/10/24 16:32 Pulse Rate 80 08/10/24 16:32 Respiratory Rate 20 08/10/24 16:32 Blood Pressure 150/83 H 08/10/24 16:32 Pulse Oximetry 98 08/10/24 16:32 Oxygen Delivery Room Air 08/10/24 16:32 Temperature 86 F L 08/10/24 16:32 Pulse Rate 88 08/10/24 21:09 Respiratory Rate 18 08/10/24 21:09 Blood Pressure 117/94 H 08/10/24 21:09 Pulse Oximetry 100 08/10/24 21:09 Oxygen Delivery Room Air 08/10/24 16:32 <Randa Dior PA-C - Last Filed: 08/10/24 17:51> Vital Signs Temperature 86 F L 08/10/24 16:32 Pulse Rate 80 08/10/24 16:32 Respiratory Rate 20 08/10/24 16:32 Blood Pressure 150/83 H 08/10/24 16:32 Pulse Oximetry 98 08/10/24 16:32 Oxygen Delivery Room Air 08/10/24 16:32 Temperature 86 F L 08/10/24 16:32 Pulse Rate 88 08/10/24 21:09 Respiratory Rate 18 08/10/24 21:09 Blood Pressure 117/94 H 08/10/24 21:09 Pulse Oximetry 100 08/10/24 21:09 Oxygen Delivery Room Air 08/10/24 16:32 <Brenna Marx MD - Last Filed: 08/11/24 01:29> MDM - Nausea/Vomiting/Diarrhea MDM Narrative Medical decision making narrative: Electronic medical record was reviewed. Patient presented to the ED with complaint of [epigastric abdominal pain and vomiting]. Vitals [were within acceptable limits]. Physical exam revealed soft abdomen without focal tenderness. Based on the patient's history and physical exam, my differential includes but is not limited to [gastritis, gastroenteritis, cholecystitis, pancreatitis]. [IV access was established by nursing staff. Patient was given zofran, famotidine]. CBC, BMP, lipase, LFTs, bilirubin and alk phos were obtained. Labs were pertinent for thankfully improving LFTs from prior. [Decision was made to obtain a CT-abdomen to evaluate for acute abdominal process. CT-abdomen per radiology interpretation showing signs of gastritis/esophagitis, fatty liver, calcification left ureter] On reevaluation, the patient states that they are feeling much better. There were no witnessed episodes of vomiting in the emergency department. They are not complaining of any new abdominal pain. Repeat examination did not show any significant guarding or rebound. No new tenderness. At this time I do not feel there is any further emergent treatment to be provided. I discussed labs and CT findings with the patient, and need for follow-up to urologist and GI. She has no pain to her flank whatsoever and never had flank to her pain so I do not feel this is something that needs to be treated emergently and she has no signs of infection her urine. The patient was given strict return precautions, if they are to develop any worsening abdominal pain, vomiting, or blood in the vomit they are to return to the emergency department immediately. Patient verbally acknowledges understanding these directions. The patient feels that this is appropriate medical decision making and verbalizes an understanding of the discharge instructions. <Brenna Marx MD - Last Filed: 08/11/24 01:29> Lab Data Result diagrams: 08/10/24 17:51 08/10/24 17:51 <Randa Dior PA-C - Last Filed: 08/10/24 17:51> Labs: Lab Results 08/10/24 08/10/24 Range/Units 17:51 19:04 WBC 6.1 (4.5-10.0) K/mm3 RBC 5.01 (4.2-5.4) M/mm3 Hgb 15.0 (12.0-15.0) g/dL Hct 46.6 (37.0-47.0) % MCV 93.0 (80-100) fl MCH 29.9 (26-34) pg MCHC 32.2 (32-36) g/dl RDW 12.0 (11.5-14.5) % Plt Count 186 D (150-375) k/mm3 MPV 10.2 (7.4-10.4) fl Immature Gran % (Auto) 0.2 (0-0.5) % Neut % (Auto) 87.3 H (45.5-73.1) % Lymph % (Auto) 8.9 L (18.3-44.2) % [place] % (Auto) 3.3 (2.6-8.5) % Eos % (Auto) 0.0 (0-4.4) % Baso % (Auto) 0.3 (0.2-1.2) % Lymph # (Auto) 0.54 L (0.9-3.2) K/mm3 [place] # (Auto) 0.2 (0.1-0.6) K/mm3 Eos # (Auto) 0.0 (0-0.3) K/mm3 Baso # (Auto) 0.0 (0.0-0.1) K/mm3 Abs Immat Gran (auto) 0.01 (0.00-0.031) K/mm3 Absolute Neuts (auto) 5.3 (1.3-6.7) K/mm3 Absolute Nucleated RBC 0.000 (0.0-0.012) K/mm3 Nucleated RBC % 0.0 (0.0-0.2) % PT 13.3 (11.1-14.7) Seconds INR 1.0 APTT 26.4 (22.3-36.8) Seconds Sodium 136 L (137-145) mmol/L Potassium 3.5 (3.4-5.0) mmol/L Chloride 101 (98-107) mmol/L Carbon Dioxide 28 (22-30) mmol/L Anion Gap 7 (4-12) mmol/L BUN 7 (7-17) mg/dL Creatinine 0.55 L (0.7-1.0) mg/dL Estim Creat Clear Calc 77 ml/min Estimated GFR > 60 (59 - ) Glucose 121 H (65-110) mg/dL Lactic Acid 1.4 (0.7-2.0) mmol/L Calcium 9.2 (8.4-10.2) mg/dL Total Bilirubin 0.9 (0.2-1.3) mg/dL AST 55 H (14-36) U/L ALT 59 H (6-35) U/L Alkaline Phosphatase 144 H (38-126) U/L Total Protein 8.0 (6.3-8.2) g/dL Albumin 4.3 (3.5-5.1) g/dL Lipase 32 (23-300) U/L Urine Color Yellow (Yellow) Urine Appearance Clear (Clear) Urine pH 8.0 (5.0-9.0) Ur Specific [place] 1.012 (1.001-1.035) Urine Protein Trace (Negative) mg/dL Urine Glucose (UA) Negative (Negative) mg/dL Urine Ketones 1+ H (Negative) mg/dL Ur Blood (Man) 1+ H (Negative) Urine Nitrate Negative (Negative) Urine Bilirubin Negative (Negative) Urine Urobilinogen 0.2 (<2.0) mg/dL Leukocyte Esterase Rfl Negative (Negative) FABIOLA/UL Urine RBC 11-20 H (0-2) /hpf Urine WBC 0-5 (0-3) /hpf Ur Squamous Epith Cells None seen (Few) /hpf Urine Bacteria None seen /hpf Urine Casts 0-2 Acetaminophen < 10 L (10-30) ug/mL Influenza A (RT-PCR) Negative (Negative) Influenza B (RT-PCR) Negative (Negative) RSV (RT-PCR) Negative (Negative) SARS-CoV-2 RNA (RT-PCR) Negative (Negative) <Randa Dior PA-C - Last Filed: 08/10/24 17:51> Lab Results 08/10/24 08/10/24 Range/Units 17:51 19:04 WBC 6.1 (4.5-10.0) K/mm3 RBC 5.01 (4.2-5.4) M/mm3 Hgb 15.0 (12.0-15.0) g/dL Hct 46.6 (37.0-47.0) % MCV 93.0 (80-100) fl MCH 29.9 (26-34) pg MCHC 32.2 (32-36) g/dl RDW 12.0 (11.5-14.5) % Plt Count 186 D (150-375) k/mm3 MPV 10.2 (7.4-10.4) fl Immature Gran % (Auto) 0.2 (0-0.5) % Neut % (Auto) 87.3 H (45.5-73.1) % Lymph % (Auto) 8.9 L (18.3-44.2) % [place] % (Auto) 3.3 (2.6-8.5) % Eos % (Auto) 0.0 (0-4.4) % Baso % (Auto) 0.3 (0.2-1.2) % Lymph # (Auto) 0.54 L (0.9-3.2) K/mm3 [place] # (Auto) 0.2 (0.1-0.6) K/mm3 Eos # (Auto) 0.0 (0-0.3) K/mm3 Baso # (Auto) 0.0 (0.0-0.1) K/mm3 Abs Immat Gran (auto) 0.01 (0.00-0.031) K/mm3 Absolute Neuts (auto) 5.3 (1.3-6.7) K/mm3 Absolute Nucleated RBC 0.000 (0.0-0.012) K/mm3 Nucleated RBC % 0.0 (0.0-0.2) % PT 13.3 (11.1-14.7) Seconds INR 1.0 APTT 26.4 (22.3-36.8) Seconds Sodium 136 L (137-145) mmol/L Potassium 3.5 (3.4-5.0) mmol/L Chloride 101 (98-107) mmol/L Carbon Dioxide 28 (22-30) mmol/L Anion Gap 7 (4-12) mmol/L BUN 7 (7-17) mg/dL Creatinine 0.55 L (0.7-1.0) mg/dL Estim Creat Clear Calc 77 ml/min Estimated GFR > 60 (59 - ) Glucose 121 H (65-110) mg/dL Lactic Acid 1.4 (0.7-2.0) mmol/L Calcium 9.2 (8.4-10.2) mg/dL Total Bilirubin 0.9 (0.2-1.3) mg/dL AST 55 H (14-36) U/L ALT 59 H (6-35) U/L Alkaline Phosphatase 144 H (38-126) U/L Total Protein 8.0 (6.3-8.2) g/dL Albumin 4.3 (3.5-5.1) g/dL Lipase 32 (23-300) U/L Urine Color Yellow (Yellow) Urine Appearance Clear (Clear) Urine pH 8.0 (5.0-9.0) Ur Specific [place] 1.012 (1.001-1.035) Urine Protein Trace (Negative) mg/dL Urine Glucose (UA) Negative (Negative) mg/dL Urine Ketones 1+ H (Negative) mg/dL Ur Blood (Man) 1+ H (Negative) Urine Nitrate Negative (Negative) Urine Bilirubin Negative (Negative) Urine Urobilinogen 0.2 (<2.0) mg/dL Leukocyte Esterase Rfl Negative (Negative) FABIOLA/UL Urine RBC 11-20 H (0-2) /hpf Urine WBC 0-5 (0-3) /hpf Ur Squamous Epith Cells None seen (Few) /hpf Urine Bacteria None seen /hpf Urine Casts 0-2 Acetaminophen < 10 L (10-30) ug/mL Influenza A (RT-PCR) Negative (Negative) Influenza B (RT-PCR) Negative (Negative) RSV (RT-PCR) Negative (Negative) SARS-CoV-2 RNA (RT-PCR) Negative (Negative) <Brenna Marx MD - Last Filed: 08/11/24 01:29> Discharge Plan Discharge Clinical Impression: Gastritis, Hypertension <Randa Dior PA-C - Last Filed: 08/10/24 17:51> Patient Disposition: Home <Randa Dior PA-C - Last Filed: 08/10/24 17:51> Condition: Stable <Randa Dior PA-C - Last Filed: 08/10/24 17:51> Instructions: Gastritis (ED), Kidney Stones (ED), Chronic Hypertension (ED), Non-Alcoholic Fatty Liver Disease (ED) <Randa Dior PA-C - Last Filed: 08/10/24 17:51> Additional Instructions: Please follow-up with your primary care doctor for your high blood pressure today, and the urologist for the possible kidney stone on her left side, and the GI doctor for he fatty liver disease and gastritis. Please take the medications as prescribed and you can always return to the emergency room for any further issues. <Randa Dior PA-C - Last Filed: 08/10/24 17:51> Patient Language: Northern Irish <Randa Dior PA-C - Last Filed: 08/10/24 17:51> Prescriptions: New famotidine 20 mg tablet 20 mg PO DAILY Qty: 30 0RF ondansetron 4 mg tablet,disintegrating 4 mg PO Q8H PRN (Reason: nausea and vomiting) Qty: 10 0RF pantoprazole [Protonix] 40 mg tablet,delayed release (DR/EC) 40 mg PO HS 28 Days Qty: 28 0RF No Action spironolactone 25 mg tablet 25 mg PO DAILY levothyroxine 100 mcg capsule 112 mcg PO DAILY cyclobenzaprine 10 mg tablet 10 mg PO .qd duloxetine 60 mg capsule,delayed release(DR/EC) 60 mg PO DAILY Qty: 90 1RF tiotropium bromide [Spiriva with HandiHaler] 18 mcg capsule, w/inhalation device 1 cap inhalation DAILY Rx Instructions: puncture 1 cap using device; one dose = 2 inhalations calcium citrate 200 mg (950 mg) tablet 200 mg PO DAILY rosuvastatin 20 mg tablet 20 mg PO DAILY Airsupra 90-80 mcg/actuation HFA aerosol inhaler 2 inh INHALATION Q6H PRN (Reason: shortness of breath) Rx Instructions: 1-2 puffs by mouth q6h PRN gabapentin 100 mg capsule 100 mg PO BID Rx Instructions: TAKE 1 CAPSULE BY MOUTH BID potassium chloride 20 mEq tablet,ER particles/crystals 20 meq PO DAILY Rx Instructions: 20 mEq orally 1 tablet p.o. b.i.d. for 3 days and then 1 tablet p.o. q.day; estradiol 0.01 % (0.1 mg/gram) cream 1 g vaginal 3XW PRN (Reason: hormones) hydrocodone-acetaminophen 10-325 mg tablet 1 tablet PO Q4-6H PRN (Reason: pain (scale score 7-10)) Qty: 180 0RF Rx Instructions: To last 30 days, due 02/12/2021 ropinirole 1 mg tablet See Rx Instructions .ROUTE .COMPLEX Qty: 100 1RF Dose Instruction: TAKE 1 TABLET BY MOUTH DAILY Rx Instructions: TAKE 1 TABLET BY MOUTH DAILY ropinirole 3 mg tablet See Rx Instructions .ROUTE .COMPLEX Qty: 100 1RF Dose Instruction: TAKE 1 TABLET BY MOUTH 1 TO 2 HOURS BEFORE BEDTIME Rx Instructions: TAKE 1 TABLET BY MOUTH 1 TO 2 HOURS BEFORE BEDTIME <Randa Dior PA-C - Last Filed: 08/10/24 17:51> Follow-up/Referrals: Funez,MD Eddie [Primary Care Provider] - 2 Days Bakari Salazar MD [Physician] - Graeme Patino MD [Physician] - 2 Days <Randa Dior PA-C - Last Filed: 08/10/24 17:51>
[2024-08-10] MEDS: FAMOTIDINE 20 MG/2 ML VIAL IV PUSH (17:55)
[2024-08-10] MEDS: ONDANSETRON INJ 4 MG/2 ML VIAL IV PUSH (17:55)
[2024-08-10 17:57] LABS: Basophils Percent Auto 0.3 % (0.2-1.2); Hematocrit 46.6 % (37.0-47.0); Immature Granulocyte Absolute 0.01 K/mm3 (0.00-0.031); Immature Granulocyte Percent A 0.2 % (0-0.5); Lymphocytes Absolute Auto 0.54 K/mm3 (0.9-3.2); Lymphocytes Percent Auto 8.9 % (18.3-44.2); Mean Corpuscular HGB Conc 32.2 g/dl (32-36); Mean Corpuscular Hemoglobin 29.9 pg (26-34); Mean Platelet Volume 10.2 fl (7.4-10.4); Monocytes Absolute Auto 0.2 K/mm3 (0.1-0.6); Monocytes Percent Auto 3.3 % (2.6-8.5); Neutrophils Absolute Auto 5.3 K/mm3 (1.3-6.7); Neutrophils Percent Auto 87.3 % (45.5-73.1); Platelet Count Result 186 k/mm3 (150-375); Red Blood Count 5.01 M/mm3 (4.2-5.4); White Blood Count 6.1 K/mm3 (4.5-10.0)
[2024-08-10 18:07] LABS: Acetaminophen < 10 ug/mL (10-30); Lactic Acid Reflex 1.4 mmol/L (0.7-2.0)
[2024-08-10 18:09] LABS: Prothrombin Time 13.3 Seconds (11.1-14.7)
[2024-08-10 18:10] LABS: Partial Thromboplastin Time 26.4 Seconds (22.3-36.8)
[2024-08-10 18:17] LABS: Alanine Aminotransferase 59 U/L (6-35); Albumin Level 4.3 g/dL (3.5-5.1); Alkaline Phosphatase 144 U/L (38-126); Anion Gap 7 mmol/L (4-12); Aspartate Amino Transferase 55 U/L (14-36); Bilirubin,Total 0.9 mg/dL (0.2-1.3); Blood Urea Nitrogen 7 mg/dL (7-17); Calcium 9.2 mg/dL (8.4-10.2); Carbon Dioxide 28 mmol/L (22-30); Chloride 101 mmol/L (98-107); Estimated CRCL calculation 77 ml/min; Estimated Glomerular Filt Rate > 60; Glucose 121 mg/dL (65-110); Lipase 32 U/L (23-300); Potassium 3.5 mmol/L (3.4-5.0); Sodium 136 mmol/L (137-145)
[2024-08-10 18:33] LABS: Influenza A QL RT-PCR Negative (Negative); Influenza B QL RT-PCR Negative (Negative); RSV RNA, RT-PCR Negative (Negative); SARS-CoV-2 RNA PCR Negative (Negative)
[2024-08-10 19:10] VITALS: BP 176/79; O2SAT 100
[2024-08-10 19:16] VITALS: BP 175/75; PULSE 66; RESP 18; O2SAT 100
[2024-08-10 19:27] LABS: Add Urine Microscopic? YES; Appearance Urine Clear (Clear); Bacteria Urine None Seen /hpf; Bilirubin Urine Negative (Negative); Blood Urine 1+ (Negative); Color Urine Yellow (Yellow); Glucose Urine UA Negative (Negative); Ketones Urine 1+ mg/dL (Negative); Leukocyte Esterase Ur Negative LEU/UL (Negative); Nitrate Urine Negative (Negative); Non Pathogenic Casts 0-2; Protein Urine Trace mg/dL (Negative); Specific Grav Ur 1.012 (1.001-1.035); Squamous Epithelial Cell Urine None Seen /hpf (Few); Urobilinogen Urine 0.2 mg/dL (<2.0); WBC Urine 0-5 /hpf (0-3)
--- OUTSIDE RECORDS SUMMARY | 2024-08-10 19:35 | XMS_ITS | Continuity of Care Document ---
Author Organization [facility] [place] Address [address] [place] [address] Phone Care Team Providers Care Ecological Risk Assessor Name Role Phone Magda PT, MINGT, Joe [...] Diagnoses Date Provider Providers Copied on Encounter [facility] [address], [place], [place], [id number], tel:[phone] [place] No Information Dec- 2 Magda Diaz. . [facility], [place], [place], [address], tel:[phone] [place] No Information Nov-2 2 Magda Diaz. . Referring Provider: Owen Meadows[address], [place], [address]. tel:[phone] [facility], [place], [place], [address], tel:[phone] [place] No Information Sep-1 2 Magda Diaz. . Referring Provider: Cristofer Alicia [address], [place], [address]. tel:[phone] [facility] [address], [place], [place], [id number], [place] tel:[phone] [place] No Information Sep-1 - 2 [place], [place], [place]. Referring Provider: Jessica Meadows [address], [place], [address]. tel:[phone] [facility] [address], [place], [place], [id number], [place] tel:[phone] [place] No Information Sep-0 2 Modglin Ralph. . Referring Provider: eJssica Meadows [address], [place], [address]. tel:[phone] [facility], [place], [place], [id number], [place] tel:[phone] [place] No Information Sep-0 2 Klahn Joe. . Referring Provider: Cristofer Alicia, Owen[address] [facility] [address], [place], [address]. tel:[phone] [facility], [place], [place], [address], [place] tel:[phone] [place] No Information Sep-0 2 Klahn Joe. . Referring Provider: Cristofer Alicia Owen[address] [facility] [address], [place], [address]. tel:[phone] [facility], [place], [place], [address], [place] tel:[phone] [place] No Information 2 Klahn Joe. . Referring Provider: Cristofer Alicia Owen[address] [facility] [address], [place], [address]. tel:[phone] [facility], [place], [place], [address], [place] tel:[phone] [place] No Information 2 Klahn Joe. . Referring Provider: Cristofer Alicia Owen[address] [facility] [address], [place], [address]. tel:[phone] [facility], [place], [place], [address], [place] tel:[phone] [place] No Information 2 Klahn Joe. . Referring Provider: Cristofer Alicia [address] [address], [place], [address]. tel:[phone] [facility], [place], [place], [address], [place] tel:[phone] [place] No Information 9 Treaster Yaima. . [facility], [place], [place], [address], [place] tel:[phone] [place] No Information 9 [facility]aster Yaima. . [facility], [place], [place], [address], [place] tel:[phone] [place] No Information [facility] Erwin. . [facility], [place], [place], [address], [place] tel:[phone] [place] No Information 9 Karina Erwin. . Family History Family Member Type Diagnosis Age At Onset No Information Payers Payer name Insurance type Covered republican ID Zak plascenciajune(s) [employer] [facility] [employer] [id number] Social History Type Description Quantity Date Captured [...]
--- OUTSIDE RECORDS SUMMARY | 2024-08-10 19:35 | XMS_ITS | Clinical Summary ---
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 on file Not on [...] topic Medical Devices Implanted Type Area Tube Winder Hand Device Identifier Shelf Expiration Date Model / Serial / Lot Tissue Placental Matrix Flowable Viaflow 2.0cc - [id number] Implanted:Qty: 1 on 10/09/2023 by Yamilex Beyer DPM at [facility] IMPLANT Left: Ankle [employer] 04/17/2028 AMAF-0020 / AMAF-0020 / [id number] Headles Screw Size 20 Implanted:Qty: 2 on 11/19/2022 by Yamilex Beyer DPM at [facility] Left: Foot AR-8725-20 H / AR-8725-20 H / AR-8725-20 H Explanted Type Area Tube Winder Hand Device Identifier Shelf Expiration Date Model / Serial / Lot 2.5 Headless Screw Size 12 Implanted:Qty: 2 on 11/19/2022 by Yamilex Beyer DPM at [facility] Explanted:Qty: 2 on 05/22/2023 by Yamilex Beyer DPM at [facility] Left: Foot ARTHREX AR-8725-12H / AR-8725-12H / AR-8725-12H Insurance MEDICAID [place] MEDICARE C [employer] Care Teams Crusher Loader Operator Relationship Specialty Start Date End Date Mary Diaz MD [address] [place] [address] PCP - General Family Medicine 06/30/22
--- OUTSIDE RECORDS SUMMARY | 2024-08-10 19:36 | XMS_ITS | Encounter Summary ---
Author Organization [facility] Address [address] [place] [address] Care Team Providers Care Terminal Worker Name Role Phone Malathi Perez MD Primary Care Provider [phone] Encounter Details Date Type Department Care Team (Late st Contact Info) Description 04/03/2003 Outpatient Historical [facility] Marshal Gonsalves MD [facility] [place] [address] Er, Authorized P NO ADDRESS ON FILE DERMATOPHYTOSIS OF NAIL (Primary Dx) Social History Tobacco Use Types Packs/Day Years Used Date Smoking Tobacco: Never Assessed Comments Unknown Sex and Gender Information Value Date Recorded Sex Assigned at Not on file Legal Sex Female 5:18 AM FLIGHT SURGEON Gender Identity Not on file Sexual Orientation Not on file documented as of this encounter Plan of Treatment Not on file documented as of this encounter Visit Diagnoses Diagnosis Dermatophytosis of nail- Primary documented in this encounter Care Teams Terminal Worker Relationship Specialty Start Date End Date Malathi Perez MD PCP - General Family Practice 02/25/20 documented as of this encounter
--- OUTSIDE RECORDS SUMMARY | 2024-08-10 19:36 | XMS_ITS | Encounter Summary ---
Author Organization [facility] Address [address] [place] [address] Care Team Providers Care Silk Crepe Machine Operator Name Role Phone Malathi Perez MD Primary Care Provider [phone] Encounter Details Date Type Department Care Team (Late st Contact Info) Description 11/25/[address] [facility] Primary Care - [address] [place] [address] Cody Rubio MD [address] [facility] [address] [place] [address] Social History Tobacco Use Types Packs/Day Years Used Date Smoking Tobacco: Never Assessed Comments Unknown Sex and Gender Information Value Date Recorded Sex Assigned at Not on file Legal Sex Female 5:18 AM PATHOLOGICAL TECHNICIAN Gender Identity Not on file Sexual Orientation Not on file documented as of this encounter Plan of Treatment Not on file documented as of this encounter Visit Diagnoses Not on filedocumented in this encounter Care Teams Silk Crepe Machine Operator Relationship Specialty Start Date End Date Malathi Perez MD PCP - General Family Practice 02/25/20 documented as of this encounter
--- OUTSIDE RECORDS SUMMARY | 2024-08-10 19:36 | XMS_ITS | Encounter Summary ---
Author Organization [facility] Address [address] [place] [address] Care Team Providers Care Dog Raiser Name Role Phone Malathi Perez MD Primary Care Provider [phone] Encounter Details Date Type Department Care Team (Late st Contact Info) Description 11/21/[address] [facility] Primary Care - [address] [place] [address] Cody Rubio MD [address] [facility] [address] [place] [address] Social History Tobacco Use Types Packs/Day Years Used Date Smoking Tobacco: Never Assessed Comments Unknown Sex and Gender Information Value Date Recorded Sex Assigned at Not on file Legal Sex Female 5:18 AM PRODUCTION UNDERWRITER Gender Identity Not on file Sexual Orientation Not on file documented as of this encounter Plan of Treatment Not on file documented as of this encounter Visit Diagnoses Not on filedocumented in this encounter Care Teams Dog Raiser Relationship Specialty Start Date End Date Malathi Perez MD PCP - General Family Practice 02/25/20 documented as of this encounter
--- OUTSIDE RECORDS SUMMARY | 2024-08-10 19:36 | XMS_ITS | Continuity of Care Document ---
Author Organization [facility] Address [address] [address] [place] [address] Phone Care Team Providers Care Palaeontologist Name Role Phone Zay Peraza DPM Unavailable [...] Providers Copied on Encounter [facility], [address] [facility] [address] [place] [address], [facility], tel:[phone] [facility] S/P foot surgery [address] [place], [place], [place], [id number] , . tel:[phone] Referring Provider: Eddie Gutiérrez, [address] [place] [address], [address] . tel:[phone] [facility], [address] [place] [address], [address], tel:[phone] [facility] S/P foot surgery [address] [place], [place], [place], [id number] , . [phone] Referring Provider: Eddie Gutiérrez, [address] [place] [address], [address] . tel:[phone] [facility], [address], [place], [address], tel:[phone] [facility] S/P foot surgeryAtrophic disorder of skin, unspecified May-2 8 [address] [place] [place], [place], [place], [id number] , [place]. tel: [phone] Referring Provider: Eddie Gutiérrez, [address] [facility], [place], [address] . tel:[phone] [facility], [address] [facility], [place], [address], tel:[phone] [facility] S/P foot surgery May-1 5 [place] [place], [place], [place], [id number] , [place]. tel:[phone] Referring Provider: Eddie Gutiérrez, [address] [place] [address], [place], [address] . tel:[phone] [facility], [address] [facility] [address] [facility] [address], [place], [place], [facility], [place] tel:[phone] [facility] Fat pad atrophy of footMorton's neuroma of left footExostosis of left foot May-0 5 [place], [place], [place], [id number] , [place]. tel:[phone] OFFICE/OUTPA TIENT VISIT EST [facility], [address] [facility] [address] [facility] [address], [place], [address], [place] tel:[phone] [facility] Injury of plantar plate of left foot, initial encounterFat pad atrophy of footMetatarsalgi a, left footBone spur of left footMorton's neuroma of left foot Apr- 5 [place] [facility], [place], [place], [id number] , [place]. tel:[phone] Referring Provider: Eddie Gutiérrez, [address] [facility], [place], [address] . tel:[phone] [facility], [address], [place], [address], [place] tel:[phone] [facility] Fat pad atrophy of footMetatarsalgi a, left foot [address] [place], [place], [place], [id number] , [place]. tel:[phone] OFFICE/OUTPA TIENT VISIT EST [facility], [address], [place], [address], [place] tel:[phone] [facility] [place] Injury of plantar plate of left foot, initial encounterFat pad atrophy of footMetatarsalgi a, left foot Feb- 4 [place], [place], [place], [id number] , [place]. [phone] Referring Provider: Eddie Gutiérrez, [address] [place] [address], [address] . tel:[phone] OFFICE/OUTPA TIENT VISIT NEW [facility], [address], [place], [address], [place] tel:[phone] [facility] [place] Metatarsalgia, left footFat pad atrophy of footInjury of plantar plate of left foot, initial encounter [address] [place] [place], [place], [place], [id number] , [place]. [phone] Referring Provider: Eddie Gutiérrez, [address] [place] [address], [address] . tel:[phone] Family History Family Member Type Diagnosis Age At Onset No Information Payers Payer name Insurance type Covered republican ID Zak plascenciajune(s) [facility] Medicare Advantage HMO/POS [id number] Social History Type Description Quantity Date [...]
--- OUTSIDE RECORDS SUMMARY | 2024-08-10 19:36 | XMS_ITS | Encounter Summary ---
Author Organization [facility] Address [address] [facility] [place] [address] Phone Care Team Providers Care Advertising Traffic Manager Name Role Phone Mary Diaz MD Primary Care Provider Encounter Details Date Type Department Care Team (Latest Contact Info) Description 05/13/2023 Transcribe Orders [facility] Preop/Pacu II [address] [place] [address] Yamilex Beyer, DPM [address] [place] [address] Pre-op testing (Primary Dx) Social History Tobacco Use Types Packs/Day Years Used Date Smoking Tobacco: Former Cigarettes 3 37 1 972 - 2009 Smokeless Tobacco: Never Alcohol Use Standard Drinks/Week Comments No 0 (1 standard drink = 0.6 oz pur e alcohol) Comments No Sex and Gender Information Value Date Recorded Sex Assigned at Female 05/07/2023 5:26 AM ROLL TESTER Legal Sex Female 12:08 AM CDT Gender Identity Female 05/07/2023 5:26 AM ROLL TESTER Sexual Orientation Straight 05/07/2023 5: 26 AM ROLL TESTER 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 NONAFRICAN >60 >=60 05/14/2023 3:05 PM ROLL TESTER [facility] Blood Venipuncture / Unknown 05/14/2023 1:28 PM ROLL TESTER 05/14/2023 2:37 PM ROLL TESTER us Yamilex Beyer DPM CHEMISTRY ORDERABLES Final R esult [facility] [address] [place] [address] documented in this encounter Visit Diagnoses Diagnosis Pre-op testing- Primary Preoperative examination, unspecified documented in this encounter Care Teams Advertising Traffic Manager Relationship Specialty Start Date End Date Mary Diaz MD [address] [place] [address] [place] [address] PCP - General Family Medicine 06/30/22 documented as of this encounter
--- OUTSIDE RECORDS SUMMARY | 2024-08-10 19:36 | XMS_ITS | Clinical Summary ---
Author Organization [facility] Address [address] [place] [address] Care Team Providers Care Entry Processor Name Role Phone Evon Sernatera Phillips MD Unavailable Alfie Vegas MD Unavailable [phone] Toni Cintron MD Unavailable Brendan Thomas DPM Unavailable [phone] Vivi Wood CNM Unavailable Tahmina Marvin MD Unavailable Cristofer Alicia MD Unavailable Prashanth Lee MD Unavailable Roberto Carlos Fregoso MD Unavailable García Siddiqui DO Unavailable Ana Delarosa MD Unavailable [phone] Orion Sommer MD Unavailable Alban Hernandez MD Unavailable [phone] Rehana Mckeon MD Unavailable Eddie Funez MD Primary Care Provider [phone] Allergies Active Allergy Reactions Criticality Noted Date Comments Adhesive Other (See comments) Low 05/16/2022 Tears skin Bacitracin Rash Medium 02/04/2024 Neomycin Sulfate Rash Medium 02/04/2024 Utyqgjye-Sdysjuudhc-Fejwzhwb n Itching,Rash Medium 06/07/2015 Polymyxin B Rash [...] Nasal saline spray (Simply saline, Little Remedies, [place], [place]) 2 second sprays or 2 squeezes into [...] evaluation Assessment & Plan (04/30/2023 5:32 PM POTATO CHIP MAKER): Noted on more recent labs. Patient had some blood work through her specialists. I have encouraged her to get me a copy of these to review Transaminitis 04/30/2023 Assessment & Plan (04/30/2023 5:35 PM POTATO CHIP MAKER): Present since least 2021. The elevated liver [...] 10/28/2022 Assessment & Plan (04/30/2023 5:32 PM POTATO CHIP MAKER): Chronic calcification noted on prior imaging. Risk [...] symptoms Assessment & Plan (04/30/2023 5:32 PM POTATO CHIP MAKER): Chronic but symptomatically improving. Working with Podiatry. [...] needed. Assessment & Plan (05/13/2023 11:09 AM POTATO CHIP MAKER): Chronic problem. Clinically euthyroid at this time. Reviewed recent labs 02/21 & 02/27 that were vastly different. Will repeat TFTs today at [facility]. Verified that she uses mychart. Aware to check results/results letter in mychart. Will contact by phone if needed. Aware to take 1st thing in morning, 30-60 minutes before food/drink/other medications. Assessment & Plan (04/30/2023 5:31 PM POTATO CHIP MAKER): Chronic. Follows with endocrinology. Continue thyroid medication per specialist Assessment & Plan (01/28/2023 11:38 AM POTATO CHIP MAKER): Chronic problem. Improved on current levothyroxine 112mcg [...] 04/24/2022 Assessment & Plan (04/24/2022 8:51 AM POTATO CHIP MAKER): -no myofascial pain noted on today's exam -continue performing PFPT exercises Vaginal atrophy 04/24/2022 Assessment & Plan (04/24/2022 8:51 AM POTATO CHIP MAKER): -discussed decreasing VET to twice per week, [...] working Assessment & Plan (04/24/2022 8:55 AM POTATO CHIP MAKER): -she is not using the the #1 [...] well Assessment & Plan (04/30/2023 5:31 PM POTATO CHIP MAKER): Chronic. Struggles some with anxiety at times [...] legs Assessment & Plan (04/30/2023 5:31 PM POTATO CHIP MAKER): Chronic. Continue medication care per pain management [...] report. Assessment & Plan (04/30/2023 5:33 PM POTATO CHIP MAKER): Noted previously. These were not mentioned on [...] Stable Assessment & Plan (04/30/2023 5:31 PM POTATO CHIP MAKER): Chronic. Continue medication and care per pain management Assessment & Plan (10/28/2022 7:11 PM CDT): Chronic. Continue medication and care per pain management Long-term current use of opiate analgesic 2021 Overview (04/08/2022): Sees pain management, Dr. Marvin Assessment & Plan (04/30/2023 5:33 PM POTATO CHIP MAKER): Chronic. Medication care per pain management Osteopenia of multiple sites 02/12/2021 Assessment & Plan (07/13/2024 9:17 PM CDT): Stable, continue calcium supplementation and weight-bearing exercises to maintain bone density Depressive disorder 01/28/2021 Overview (04/08/2022): Seecharli psychVivi Assessment & Plan (04/30/2023 5:30 PM POTATO CHIP MAKER): Chronic. Mood is stable. Continue medication care [...] monoplegia Assessment & Plan (04/30/2023 5:30 PM POTATO CHIP MAKER): Chronic. Continue medication and care per interventional pain physician Assessment & Plan (10/28/2022 7:11 PM CDT): Chronic. Continue medication and care per interventional pain physician Primary localized osteoarthritis of pelvic regio n and thigh 01/28/2021 Tobacco dependence in remission 01/28/2021 Assessment & Plan (04/30/2023 5:33 PM POTATO CHIP MAKER): Chronic. Patient will be due for updated [...] management Assessment & Plan (04/30/2023 5:27 PM POTATO CHIP MAKER): Chronic. Can continue medication care for pain management. She is on gabapentin, duloxetine, hydrocodone, and ropinirole Assessment & Plan (10/28/2022 7:11 PM CDT): Chronic. Can continue medication care for pain management. She is on gabapentin, duloxetine, hydrocodone known and ropinirole Assessment & Plan (02/14/2020 4:43 PM POTATO CHIP MAKER): Patient has 10 day history of low [...] that she continue with Dr. Carreno in [place] as she sees no need to have [...] 03/24/2017 Assessment & Plan (04/30/2023 5:31 PM POTATO CHIP MAKER): Chronic. Symptomatically has improved. Monitor. Assessment & [...] doses Assessment & Plan (04/30/2023 5:30 PM POTATO CHIP MAKER): Chronic. Follows with endocrinology. Continue medication and care per specialists Assessment & Plan (02/12/2021 12:34 PM POTATO CHIP MAKER): With subclinical hyperthyroidism. Will recheck free T4 [...] adjustment Assessment & Plan (04/30/2023 5:27 PM POTATO CHIP MAKER): Chronic. Breathing is relatively stable. Denies significant [...] continue Assessment & Plan (04/30/2023 5:30 PM POTATO CHIP MAKER): Chronic. Patient has a degree of transaminitis [...] now. Assessment & Plan (04/30/2023 5:31 PM POTATO CHIP MAKER): Chronic. Blood pressure is very tightly controlled [...] (04/05/2022): Added automatically from request for surgery [id number] Exposure of implanted vaginal mesh 11/20/2021 04/08/2022 Overview (11/20/2021): Added automatically from request for surgery [id number] Radiculopathy, lumbosacral region 05/09/2021 04/08/2022 Other obesity due to excess calories 05/09/2021 04/08/2022 Gastroesophageal reflux disease 01/28/2021 04/08/2022 Lymphadenopathy 01/28/2021 04/08/2022 Mild chronic obstructive pulmonary disease 01/28/2021 10/28/2022 Encounter to establish care 01/28/2021 04/08/2022 Assessment & Plan (01/28/2021 2:15 PM POTATO CHIP MAKER): A visit to establish care has been performed today. Flor Gallego is not up to date on screening tests. She is in need of Mammogram, Lung cancer screen and hepatitis c screen- these have been ordered. She is up to date on needed preventative vaccinations. Cervical radiculopathy 01/28/202104/08 Assessment & Plan (01/28/2021 2:17 PM POTATO CHIP MAKER): Her pain management was covered by her neurologist will need new pain doctor (her neurologist is leaving the area at the end of the month) Erythrocytosis 02/24/2020 04/08/2022 Pachyderma of larynx 06/26/2017 023 WILFRED (obstructive sleep apnea) 06/26/2017 04/08/2022 Hot thyroid nodule 02/20/2017 Assessment & Plan (03/28/2022 1:56 PM POTATO CHIP MAKER): Chronic problem, not at goal. 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 She is having increasing trouble swallowing and [...] 06/04/2022 Assessment & Plan (02/12/2021 12:45 PM POTATO CHIP MAKER): Risk of cardiac arrhythmias with discussed. The patient is following with cardiology Bone density also requested due to the risk of bone density loss in patient with subclinical hyperthyroidism Assessment & Plan (02/06/2017 4:43 PM POTATO CHIP MAKER): Check TFT's Treat as indicated Assessment & Plan (01/09/2017 4:27 PM CDT): Long standing, related to MNG Repeat TFT's Recommendations to follow Most likely will watch without specific intervention. Multinodular goiter (nontoxic) 01/09/2017 09/26/2022 Assessment & Plan (02/12/2021 12:55 PM POTATO CHIP MAKER): With FNA showing follicular lesion of unknown significance. With [facility] molecular testing, negative.less than 4 % change of malignancy. Will repeat thyroid ultrasound if not changes will continue monitoring Assessment & Plan (02/06/2017 4:42 PM POTATO CHIP MAKER): Differential diagnosis would include benign nodule (macrofollicular [...] Description 07/26/2024 2:00 PM CDT Office Visit [facility] Diabetes and Endocrinology [address] [place] [phone] Mariam Shah NP Postoperative hypothyroidism (Primary Dx) 07/15/2024 Results [facility] [address] [phone] Eddie Funez MD Estradiol, CBC with auto differential, Comprehensive metabolic panel, Additional followed-up results: 4 07/01/2024 4:00 PM CDT Office Visit [facility] [address] [phone] Eddie Funez MD Need for hepatitis B screening test (Primary Dx); Encounter to establish care with new doctor; Postoperative hypothyroidism; Encounter for screening mammogram for malignant neoplasm of breast; Lung nodules; Post-menopause; COPD, mild (HCC); Pure hypercholesterolemia; Primary fibromyalgia syndrome; Osteopenia of multiple sites 06/23/2024 9:35 AM CDT Office Visit [address] [place] [phone] Eyers, STACEY Godwin Grade III hemorrhoids 05/13/2024 Results [facility] [address] [phone] Eddie Funez MD SCAN - RADIOLOGY/IMAGING from [...] 11/20/2021 Added automatically from request for surgery [id number] Chronic low back pain Restless leg Erythrocytosis 03/09/2020 secondary erythr ocytosis Jak2 - saw Heme Goiter 04/05/2022 Added automatica lly from request for surgery [id number] Coronary artery calcificatio n seen on CAT [...] on file Legal Sex Female 7:24 PM POTATO CHIP MAKER Gender Identity Female 02/08/2020 5:48 PM POTATO CHIP MAKER Sexual Orientation Straight 02/08/2020 5: 48 PM POTATO CHIP MAKER Obstetrics History Para Term AB IAB SAB [...] Completed 07/14/2024 Medical Devices Implanted Type Area Filter Washer Device Identifier Shelf Expiration Date Model / Serial / Lot Ethicon Endo Surgery Tvt Prolene 45x1.1cm Tape Mesh Transvaginal Blue [id number] - [id number] Implanted:Qty: 1 on 05/29/2022 by Aura Driscoll MD at [facility] Mesh N/A: Urethra Ethicon Endo Surgery [id number] 11/21/2024 [id number] / [facility] [employer] Sls-Clip Ligate Triangular Wire Kathleen Groove Small Chevron Clip Latex Free [id number] - [id number] Implanted:Qty: 2 on 05/20/2022 by Sameer Alan MD at [facility] [employer] [id number] / / [facility] [employer] Sls-Clip Ligate Triangular Wire Kathleen Groove Small Chevron Clip Latex Free V8489-9 - [id number] Implanted:Qty: 2 on 05/20/2022 by Sameer Alan MD at [facility] [id number] / / Procedures Procedure Name Priority Date/Time [...] - 07/15/2024 12:07 AM CDT Performed at: [address] [place] [id number] Account Services Analyst: Jack Winslow PhD, Phone: [phone] Eddie Funez MD LAB BLOOD ORDERABLES Armida taveras Result [facility] - * Hepatitis B core antibody, total Blood (07/14/2024 9:59 AM CDT) [facility] Hep B core IgG/IgM Negative Negative [facility] - 01 Blood 07/14/2024 9:59 AM CDT 07/14/2024 Narrative [facility] - 07/15/2024 5:07 AM CDT Performed at: [address] [place] [address] [place] [id number] Account Services Analyst: Jack Winslow PhD, Phone: [phone] us Eddie Funez MD LAB MICROBIOLOGY - GENERA L ORDERABLES Final Result Performing Organization Address [facility] Co de Phone Number [facility] * Hepatitis B surface antibody (immune [...] 07/15/2024 5:07 AM CDT Performed at: - [address] [id number] Account Services Analyst: Jack Winslow PhD, Phone: [phone] Eddie Funez MD LAB MICROBIOLOGY - GENERA L ORDERABLES Final Result Performing Organization Address [facility] de Phone Number [facility] * Hepatitis B Surface Antigen Blood (07/14/2024 9:59 AM CDT) HepBsAg Negative Negative [facility] - Blood 07/14/2024 9:59 AM CDT 07/14/2024 Narrative [facility] - 07/15/2024 5:07 AM CDT Performed at: [address] [id number] Account Services Analyst: Jack Winslow PhD, Phone: [phone] Eddie Funez MD LAB MICROBIOLOGY - GENERA L ORDERABLES Final Result Performing Organization Address [facility] Co de Phone Number [facility] * Lipid panel (07/14/2024 9:59 [...] 2:07 AM CDT Performed at: 01 - [facility] [id number] Account Services Analyst: Jack Winslow PhD, Phone: [phone] us Eddie Funez MD LAB BLOOD ORDERABLES [...] - 07/15/2024 1:07 AM CDT Performed at: [address] [place] [id number] Account Services Analyst: Jack Winslow PhD, Phone: [phone] Eddie Funez MD LAB BLOOD ORDERABLES Armida l Result Performing Organization Address [facility] Co de Phone Number [facility] * Estradiol (07/14/2024 9:39 AM [...] - 07/15/2024 4:07 AM CDT Performed at: [address] [place] [id number] Account Services Analyst: Jack Winslow PhD, Phone: [phone] Eddie Funez MD LAB BLOOD ORDERABLES Armida l Result Performing Organization Address City/[facility]/ZIP Co de Phone Number [facility] - * MAMMOGRAPHY (10/31/2023 2:52 PM CDT) Mammography Normal Historical Provider HEALTH MAINTENANCE Final Result * HEPATITIS C SCREENING (04/06/2023) SCRIBED HCV ab nonreactive Comment:Patient had checked through GI. She showed me a copy of the results through her mobile lab [facility] garcia us Historical Provider HEALTH MAINTENANCE Final Result * Colonoscopy (09/18/2016) Anatomical Region Laterality Modality Other Narrative 09/18/2016 Polypectomy; repeat in 3 years us Historical Provider ENDOSCOPY PROCEDURES Armiad l Result from Last 3 Months or Most Recently Relevant to Health Maintenance Insurance [facility] MEDICARE ADVANTAGE [facility] Address: [address] [address] [place] [address] IDPA [facility] MEDICARE ADVANTAGE [facility] Address: [facility] [address] [place] [address] [facility] MEDICARE ADVANTAGE IDPA Advance Directives For more information, please contact: [phone] * Full Code (Latest Code Status on File) Date Activated Date Inactivated Comments 05/20/2022 3:24 PM 05/21/2022 2:16 PM * Full Code Date Activated Date Inactivated Comments 02/12/2022 11:40 AM 02/12/2022 6:05 PM Care Teams Entry Processor Relationship Specialty Start Date [place] [address] PCP - General Family Medicine 07/01/24 Minerva Serna MD Consulting Physician Gastroenterology 01/28/21 Alfie Vegas MD Consulting Physician Hematology 01/28/21 Toni Cintron MD [address] [place] [address] Consulting Physician Obstetrics and Gynecology 01/28/21 Brendan Thomas DPM [address] [place] [address] Consulting Physician Foot and Ankle Surg 01/28/21 Vivi Wood CNM [address] [place] [address] Nurse Practitioner Psychiatry 04/08/22 Tahmina Marvin MD [address] [facility] [address] [place] [address] Referring Physician Pain Management 04/08/22 Cristofer Alicia MD [address] [facility] [address] [place] [phone] Referring Physician Neurosurgery 04/08/22 [place] [address] [facility] [address] [place] [address] Consulting Physician Endocrinology Diabetes & Metabolism 04/08/22 Roberto Carlos Fregoso MD [address] [facility] [place] [address] Referring Physician Otolaryngology 04/08/22 García Siddiqui DO [address] [place] [address] Referring Physician Surgery 04/08/22 Ana Delarosa MD [address] [place] [address] Consulting Physician Sleep Medicine 04/08/22 [place] [address] [place] [address] Surgeon Orthopedic Surgery 04/08/22 [place] [address] [place] [address] Referring Physician Orthopedic Surgery 04/08/22 [place] [address] [facility] [address] [place] [address] Consulting Physician Cardiology 04/08/22
--- OUTSIDE RECORDS SUMMARY | 2024-08-10 19:36 | XMS_ITS | Encounter Summary ---
Author Organization [facility] Address [address] [place] [address] Care Team Providers Care Strategy Specialist Name Role Phone Malathi Perez MD Primary Care Provider [phone] Encounter Details Date Type Department Care Team (Late st Contact Info) Description 04/27/2003 Outpatient Historical [facility] Primary Care - [address] [place] [address] Cody Rubio MD [address] [facility] [address] [place] [address] Social History Tobacco Use Types Packs/Day Years Used Date Smoking Tobacco: Never Assessed Comments Unknown Sex and Gender Information Value Date Recorded Sex Assigned at Not on file Legal Sex Female 5:18 AM CONSTRUCTION RECRUITER Gender Identity Not on file Sexual Orientation Not on file documented as of this encounter Plan of Treatment Not on file documented as of this encounter Visit Diagnoses Not on filedocumented in this encounter Care Teams Strategy Specialist Relationship Specialty Start Date End Date Malathi Perez MD PCP - General Family Practice 02/25/20 documented as of this encounter
--- OUTSIDE RECORDS SUMMARY | 2024-08-10 19:36 | XMS_ITS | CONTINUITY OF CARE DOCUMENT ---
Author Name maryruchi maryruchi Address Unknown Organization [facility] Address [address] [address] [facility] [address] [place] [address] Phone [phone] Care Team Providers Care Traffic Rate Computer Name Role Phone Mike AYALA, Rehana Unavailable Joe AYALA, Mary Unavailable Joe AYALA, Mary Unavailable PROBLEMS Condition Status Date Provider Notes HYPOKALEMIA active Bianca Refugio ASTHMA active Bianca Refugio SHORTNESS OF BREATH active Ibanca Refugio PALPITATIONS completed - Rehana Mckeon MD [...] In-person encounter Office Visit Rehana Mckeon MD [facility] [place] [facility] Cardiology examination - In-person encounter Office Visit Rehana Mckeon MD [place] [facility] - In-person encounter Office Visit Rehana Mckeon MD [place] [facility] - In-person encounter Office Visit Rehana Mckeon MD [place] [facility] - In-person encounter Office Visit Elijah Giles MD [facility] [place] [facility] Venous insufficiency - In-person encounter Office Visit Rehana Mckeon MD [place] [facility] - In-person encounter Office Visit Rehana Mckeon MD [place] [facility] - In-person encounter Office Visit Rehana Mckeon MD [place] [facility] HTN ESSENTIAL--echo ef 60%, reoperative cardiovascular examinationHx of bariatric surgery in 2020 - In-person encounter Office Visit Rehana Mckeon MD [place] [facility] - In-person encounter Office Visit Rehana Mckeon MD [facility] PALPITATIONSHYPERCHOLESTEROLEMIARENAL INSUFFICIENCY ECTOPIC KIDNEYCHEST PAIN, - In-person encounter Office Visit Rehana Mckeon MD [place] [facility] TOBACCO ABUSE QUIT 12 YRS AGOCHEST [...] musaenenfeld pulse rate 79 /min Kavya Floresnfe [facility] weight E&M 149 [lb_av] Kavya Floresnfe [facility] height E&M 64 [in_i] Kavya Floresnfe [facility] blood pressure, cuff size regular [facility] blood pressure, diastolic 70 mm[Hg] [facility] blood pressure, systolic 104 mm[Hg] [facility] pulse rate 90 /min [facility] respiratory rate E&M 16 /min Shazia Linda iller oxygen saturation, oximetry 95 % [facility] Body Mass Index (Ratio) 23.51 kg/m2 [facility] weight in kilograms E&M 62.14 kg [facility] weight E&M 137 [lb_av] Shazia [place] height E&M 64 [in_i] [facility] height in centimeters E&M 162.56 cm [facility] Body Mass Index (Ratio) 23.00 kg/m2 [...] blood pressure, diastolic 59 mm[Hg] Ca therine [place] blood pressure, systolic 121 mm[Hg] Cat herine [place] oxygen saturation, oximetry 96 % Sharon Kyle pulse rate 67 /min Sharon Kyle respiratory rate E&M 14 /min Catheri ne [place] weight E&M 167 [lb_av] Sharon [place] blood pressure, cuff size regular Ca therine [place] height E&M 64 [in_i] Sharon Kyle Body Mass Index (Ratio) 37.59 kg/m2 Elgin Mckeon MD blood pressure, cuff size regular Pa ris [place] blood pressure, diastolic 74 mm[Hg] Pa ris [place] blood pressure, systolic 134 mm[Hg] Par is Phillip respiratory rate E&M 21 /min Rosa H trey pulse rate 77 /min Rosa [place] oxygen saturation, oximetry 97 % Rosa Phillip [...] pressure, diastolic, left arm 79 mm [Hg] [facility] blood pressure, systolic, left arm 126 mm [Hg] Agustin [place] blood pressure, diastolic 79 mm[Hg] Audrey seph [place] blood pressure, systolic 126 mm[Hg] Asaf eph [place] pulse rate 76 /min [place] oxygen saturation, oximetry 96 % Agustin [place] respiratory rate E&M 16 /min [place] weight E&M 260 [lb_av] [facility] ALLERGIES Allergy Name Onset Date [...] [facility] 0-149 cholesterol, serum 158 mg/dL [facility] [phone]/12/ 29 basophil count, absolute 0.0 x10E3/uL [facility] [...] Not Estab. platelet count 151 X10E3/UL [facility] [phone]/12/ 29 red blood cell distribution width 12.3 [...] g/dL [facility] 6.0-8.5 calcium, serum 9.3 mg/[facility] carbon dioxide, venous blood 31 mmol/L [facility] 20[facility]29 High chloride, serum 102 mmol/L [facility] 96-106 potassium, serum 3.0 mmol/L [facility] 3[facility]2 Low sodium, serum 147 mmol/L [facility]144 High urea nitrogen/creatinine ratio, serum 17 [facility] 12-28 creatinine, serum 0.60 mg/[facility] 0.57-1.00 urea nitrogen, blood 10 mg/[facility] 8-27 blood glucose, random 86 mg/[facility] 70-99 thyroid stimulating hormone, serum 2.500 u[IU]/mL [facility] very low density lipoproteins 36 mg/dL [facility] triglyceride, serum, fasting 178 mg/dL [facility] HDL cholesterol, serum 53 mg/dL [facility] LDL cholesterol, serum 104 mg/dL [facility] [place] cholesterol, serum 193 mg/dL [facility] globulins, serum, total 3.0 g/dL [facility] Estimated Glomerular Filtration Rate (calc) 58 mL/min/{1 .73_m2} [facility] albumin/globulin ratio, serum 1.3 [facility] protein, total, serum 6.9 g/dL [facility] albumin, serum 3.9 g/dL [facility] bilirubin, serum, total 0.3 mg/dL [facility] alkaline phosphatase, serum 109 1/L [facility] alanine aminotransferase (SGPT), serum 22 1/L [facility] aspartate aminotransferase (SGOT), serum 18 1/L [facility] calcium, serum 9.2 mg/dL [facility] blood glucose, fasting 84 mg/dL [facility] creatinine, serum 1.02 mg/dL [facility] urea nitrogen, blood 13 mg/dL [facility] carbon dioxide, serum, total 29 mmol/L [facility] chloride, serum 101 mmol/L [facility] potassium, serum 3.4 mmol/L [facility] sodium, serum 142 mmol/L [facility] HISTORY OF MEDICATION USE Medication Status Instructions Dates Provider Indications Com ments levothyroxine 112 mcg tablet active Agapito Dooleyzafilipe spironolactone 25 mg tablet active TAKE 1 TABLET BY MOUTH ONCE DAILY Agapito Dooleyzai losartan 50 mg tablet active TAKE 1 TABLET BY MOUTH ONCE DAILY Agapito Dooleyzai hydrocodone-acetam inophen 10-325 mg tablet active Es Ventimiglia [employer]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 alcohol use no Es Ventimig jesus manuel [facility] physical exercise, frequency, days per week no Kavya Stephens caffeine use, averag e drinks per day yes Kavay Stephens smoking status Former smoker Kavya velazquez [...] exercise, frequency, days per week no Rosa [place] caffeine use, averag e drinks per day [...] or m ore LinkLog smoking status Quit [facility] MENTAL STATUS Date Observation Value Provider assessment of judgme nt and insight E&M Alert and oriented to time, place and person. Mood and affect are normal. Rehana Mckeon MD INSURANCE PROVIDERS Payer name Policy type / Coverage type [place] [employer] party ID [employer] MCR ADVANTAGE PLAN 2 (HMO-POS) Medicare [id number] [facility] Medicaid 3 [id number] ADVANCE DIRECTIVES Name Date DISCUSSED - NO DECISION MADE TREATMENT PLAN Date Name Performer [id number],S, Rehana Mckeon MD [id number],S,c urrently asymptomatic. Her updated medication list for this problem includes: Losartan 50 Mg Tablet (Losartan) ..... Take 1 tablet by mouth once a day take 1 tablet by mouth every day Spironolactone 25 Mg Tablet (Spironolactone) ..... Take 1 tablet by mouth once a day Rehana Mckeon MD [id number],B,C ut Losartan from 100mg to 50mg daily Her updated medication list for this problem includes: Losartan 50 Mg Tablet (Losartan) ..... Take 1 tablet by mouth once a day take 1 tablet by mouth every day Spironolactone 25 Mg Tablet (Spironolactone) ..... Take 1 tablet by mouth once a day Rehana Mckeon MD [id number],C,remains tobac co free Es MATTP [id number],C,c urrently asymptomatic. H er updated medication list for this problem includes: Losartan 100 Mg Tablet (Losartan) ..... Take 1 tablet by mouth once a day take 1 tablet by mouth every day Spironolactone 25 Mg Tablet (Spironolactone) ..... Take 1 tablet by mouth once a day Es MATTP [id number],C,c ontrolled. Will continue present medication regimen H er updated medication list for this problem includes: Losartan 100 Mg Tablet (Losartan) ..... Take 1 tablet by mouth once a day take 1 tablet by mouth every day Spironolactone 25 Mg Tablet (Spironolactone) ..... Take 1 tablet by mouth once a day Es To [facility] [id number],C,S he continues to have pain left foot 3rd digit with bruising and pain with ambulation. Concern is that this is related musculoskeletal injury as no venous insufficiency noted on doppler and Sensilase with microvascular disease. Have recommended ortho eval and non-weight bearing. Es To [facility] [id number],C,D enies SOB H er updated medication list for this problem includes: Losartan 100 Mg Tablet (Losartan) ..... Take 1 tablet by mouth once a day take 1 tablet by mouth every day Spironolactone 25 Mg Tablet (Spironolactone) ..... Take 1 tablet by mouth once a day Fabiana Nalluri [id number],C,B P controleld well B P today: 122/72 [...] by mouth once a day Fabiana Nalluri CHILDREN'S AUTHOR [id number],C, Fabiana Nalluri CHILDREN'S AUTHOR [id number],C,C /o pain in left middle toe pain/cheange into purple color. She had MRI done whish shwed joint fusion. No evidence of osteomelitis or fracture. O rders: V enous Doppler Bilateral LE - Reflux (CPT-14571) Fabiana Leoneri CHILDREN'S AUTHOR [id number],S, Agapito Ahmedza i [id number],S, Agapito Ahmedza i [id number],S, Agapito Ahmedza i [id number],S, Agapito Ahmedza i [id number],W, Agapito Ahmedza i [id number],S, Agapito Ahmedza i [id number],S, Agapito Ahmedza i [id number],S, Agapito Ahmedza i [id number],S, Agapito Ahmedza i [id number],S, Agapito Ahmedza i [id number],S, Agapito Ahmedza i [id number],B, Agapito Ahmedza i [id number],S, Agapito Ahmedza i [id number],B, Agapito Ahmedza i [id number],B, Agapito Ahmedza i [id number],S, Agapito Ahmedza i Cardiology Rehana Mckeon MD [...] day Rehana Mckeon MD Cardiology:remains tobacco free [facility] Cardiology:currently asymptomatic. H er updated medication list for this problem includes: Losartan 100 Mg Tablet (Losartan) ..... Take 1 tablet by mouth once a day take 1 tablet by mouth every day Spironolactone 25 Mg Tablet (Spironolactone) ..... Take 1 tablet by mouth once a day [facility] Cardiology:controlle d. Will continue present medication regimen H er updated medication list for this problem includes: Losartan 100 Mg Tablet (Losartan) ..... Take 1 tablet by mouth once a day take 1 tablet by mouth every day Spironolactone 25 Mg Tablet (Spironolactone) ..... Take 1 tablet by mouth once a day [facility] Cardiology:She alexia nues to have pain left foot 3rd digit with bruising and pain with ambulation. Concern is that this is related musculoskeletal injury as no venous insufficiency noted on doppler and Sensilase with microvascular disease. Have recommended ortho eval and non-weight bearing. Only Yousuf [facility] Cardiology:Denies SO B H er updated medication [...] by mouth once a day Fabiana Nalluri CHILDREN'S AUTHOR Cardiology Fabiana Nalluri CHILDREN'S AUTHOR Cardiology:C/o pain in left middle toe pain/cheange into purple color. She had MRI done whish shwed joint fusion. No evidence of osteomelitis or fracture. O rders: V enous Doppler Bilateral LE - Reflux (CPT-27679) Fabiana Nalluri CHILDREN'S AUTHOR Telehealth Agapito Ahmedzai Telehealth Agapito Ahmedzai Telehealth [...]
--- OUTSIDE RECORDS SUMMARY | 2024-08-10 19:36 | XMS_ITS | Referral Summary ---
Author Organization [facility] Address [address] [place] [address] Care Team Providers Care High Lift Operator Name Role Phone Kareem Minerva Phillips MD Unavailable [phone] Alfie Vegas MD Unavailable [phone] Toni Cintron MD Unavailable Brendan Thomas DPM Unavailable [phone] Vivi Wood CNM Unavailable Tahmina Marvin MD Unavailable Cristofer Alicia MD Unavailable Prashanth Lee MD Unavailable Roberto Carlos Fregoso MD Unavailable García Siddiqui DO Unavailable Ana Delarosa MD Unavailable Orion Sommer MD Unavailable [phone] Alban Hernandez MD Unavailable [phone] Rehana Mckeon MD Unavailable Eddie Funez MD Primary Care Provider [phone] Encounters Date Type Department Care Team Description 07/26/2024 2:00 PM CDT Office Visit [facility] Diabetes and Endocrinology [address] [place] [phone] Mariam Shah NP Postoperative hypothyroidism (Primary Dx) 07/15/2024 Results [facility] [address] [phone] Eddie Funez MD Estradiol, CBC with auto differential, Comprehensive metabolic panel, Additional followed-up results: 4 07/01/2024 4:00 PM CDT [facility] Visit [facility] [address] [phone] Eddie Funez MD Need for hepatitis B screening test (Primary Dx); Encounter to establish care with new doctor; Postoperative hypothyroidism; Encounter for screening mammogram for malignant neoplasm of breast; Lung nodules; Post-menopause; COPD, mild (HCC); Pure hypercholesterolemia; Primary fibromyalgia syndrome; Osteopenia of multiple sites 06/23/2024 9:35 AM CDT Office Visit [address] [place] [phone] EyersCitlali NP Grade III hemorrhoids 05/13/2024 Results [facility] [address] [phone] Eddie Funez MD SCAN - RADIOLOGY/IMAGING from Last 3 Months Allergies Active Allergy Reactions Criticality Noted Date Comments Adhesive Other (See comments) Low 05/16/2022 Tears skin Bacitracin Rash Medium 02/04/2024 Neomycin Sulfate Rash Medium 02/04/2024 Azvsxgdv-Ziruomnkxa-Ioqivxiv n Itching,Rash Medium 06/07/2015 Polymyxin B Rash [...] Nasal saline spray (Simply saline, Little Remedies, Shasta, Tenmile) 2 second sprays or 2 squeezes into [...] evaluation Assessment & Plan (04/30/2023 5:32 PM TYPING SECTION CHIEF): Noted on more recent labs. Patient had some blood work through her specialists. I have encouraged her to get me a copy of these to review Transaminitis 04/30/2023 Assessment & Plan (04/30/2023 5:35 PM TYPING SECTION CHIEF): Present since least 2021. The elevated liver [...] 10/28/2022 Assessment & Plan (04/30/2023 5:32 PM TYPING SECTION CHIEF): Chronic calcification noted on prior imaging. Risk [...] symptoms Assessment & Plan (04/30/2023 5:32 PM TYPING SECTION CHIEF): Chronic but symptomatically improving. Working with Podiatry. [...] needed. Assessment & Plan (05/13/2023 11:09 AM TYPING SECTION CHIEF): Chronic problem. Clinically euthyroid at this time. Reviewed recent labs 02/21 & 02/27 that were vastly different. Will repeat TFTs today at [facility]. Verified that she uses [facility]. Aware to check results/results letter in mychart. Will contact by phone if needed. Aware to take 1st thing in morning, 30-60 minutes before food/drink/other medications. Assessment & Plan (04/30/2023 5:31 PM TYPING SECTION CHIEF): Chronic. Follows with endocrinology. Continue thyroid medication per specialist Assessment & Plan (01/28/2023 11:38 AM TYPING SECTION CHIEF): Chronic problem. Improved on current levothyroxine 112mcg [...] daily. TSH/T4 ordered. Verified that she uses [facility]. Aware to check results/results letter in [facility]. Will contact by phone if needed. Will send 90 day refill to [facility] once labs result Verified phone #/address if I need to call her. Pelvic floor dysfunction 04/24/2022 Assessment & Plan (04/24/2022 8:51 AM TYPING SECTION CHIEF): -no myofascial pain noted on today's exam -continue performing PFPT exercises Vaginal atrophy 04/24/2022 Assessment & Plan (04/24/2022 8:51 AM TYPING SECTION CHIEF): -discussed decreasing VET to twice per week, [...] working Assessment & Plan (04/24/2022 8:55 AM TYPING SECTION CHIEF): -she is not using the the #1 [...] well Assessment & Plan (04/30/2023 5:31 PM TYPING SECTION CHIEF): Chronic. Struggles some with anxiety at times [...] legs Assessment & Plan (04/30/2023 5:31 PM TYPING SECTION CHIEF): Chronic. Continue medication care per pain management [...] report. Assessment & Plan (04/30/2023 5:33 PM TYPING SECTION CHIEF): Noted previously. These were not mentioned on [...] Stable Assessment & Plan (04/30/2023 5:31 PM TYPING SECTION CHIEF): Chronic. Continue medication and care per pain management Assessment & Plan (10/28/2022 7:11 PM CDT): Chronic. Continue medication and care per pain management Long-term current use of opiate analgesic 2021 Overview (04/08/2022): Dr. Yon Brown Assessment & Plan (04/30/2023 5:33 PM TYPING SECTION CHIEF): Chronic. Medication care per pain management Osteopenia of multiple sites 02/12/2021 Assessment & Plan (07/13/2024 9:17 PM CDT): Stable, continue calcium supplementation and weight-bearing exercises to maintain bone density Depressive disorder 01/28/2021 Overview (04/08/2022): Sees psych, Vivikristine Wood Assessment & Plan (04/30/2023 5:30 PM TYPING SECTION CHIEF): Chronic. Mood is stable. Continue medication care [...] monoplegia Assessment & Plan (04/30/2023 5:30 PM TYPING SECTION CHIEF): Chronic. Continue medication and care per bottom painter Assessment & Plan (10/28/2022 7:11 PM CDT): Chronic. Continue medication and care per bottom painter Primary localized osteoarthritis of pelvic regio n and thigh 01/28/2021 Tobacco dependence in remission 01/28/2021 Assessment & Plan (04/30/2023 5:33 PM TYPING SECTION CHIEF): Chronic. Patient will be due for updated [...] management Assessment & Plan (04/30/2023 5:27 PM TYPING SECTION CHIEF): Chronic. Can continue medication care for pain management. She is on gabapentin, duloxetine, hydrocodone, and ropinirole Assessment & Plan (10/28/2022 7:11 PM CDT): Chronic. Can continue medication care for pain management. She is on gabapentin, duloxetine, hydrocodone known and ropinirole Assessment & Plan (02/14/2020 4:43 PM TYPING SECTION CHIEF): Patient has 10 day history of low [...] that she continue with Dr. Carreno in [place] as she sees no need to have [...] 03/24/2017 Assessment & Plan (04/30/2023 5:31 PM TYPING SECTION CHIEF): Chronic. Symptomatically has improved. Monitor. Assessment & [...] doses Assessment & Plan (04/30/2023 5:30 PM TYPING SECTION CHIEF): Chronic. Follows with endocrinology. Continue medication and care per specialists Assessment & Plan (02/12/2021 12:34 PM TYPING SECTION CHIEF): With subclinical hyperthyroidism. Will recheck free T4 [...] adjustment Assessment & Plan (04/30/2023 5:27 PM TYPING SECTION CHIEF): Chronic. Breathing is relatively stable. Denies significant [...] continue Assessment & Plan (04/30/2023 5:30 PM TYPING SECTION CHIEF): Chronic. Patient has a degree of transaminitis [...] now. Assessment & Plan (04/30/2023 5:31 PM TYPING SECTION CHIEF): Chronic. Blood pressure is very tightly controlled [...] (04/05/2022): Added automatically from request for surgery [id number] Exposure of implanted vaginal mesh 11/20/2021 04/08/2022 Overview (11/20/2021): Added automatically from request for surgery [id number] Radiculopathy, lumbosacral region 05/09/2021 04/08/2022 Other obesity due to excess calories 05/09/2021 04/08/2022 Gastroesophageal reflux disease 01/28/2021 04/08/2022 Lymphadenopathy 01/28/2021 04/08/2022 Mild chronic obstructive pulmonary disease 01/28/2021 10/28/2022 Encounter to establish care 01/28/2021 04/08/2022 Assessment & Plan (01/28/2021 2:15 PM TYPING SECTION CHIEF): A visit to establish care has been performed today. Flor Gallego is not up to date on screening tests. She is in need of Mammogram, Lung cancer screen and hepatitis c screen- these have been ordered. She is up to date on needed preventative vaccinations. Cervical radiculopathy 01/28/202104/08 Assessment & Plan (01/28/2021 2:17 PM TYPING SECTION CHIEF): Her pain management was covered by her neurologist will need new pain doctor (her neurologist is leaving the area at the end of the month) Erythrocytosis 02/24/2020 04/08/2022 Pachyderma of larynx 06/26/2017 023 WILFRED (obstructive sleep apnea) 06/26/2017 04/08/2022 Hot thyroid nodule 02/20/2017 Assessment & Plan (03/28/2022 1:56 PM TYPING SECTION CHIEF): Chronic problem, not at goal. She has h/o toxic MNG, with both hot and possible cold nodule on I-123 scan, low risk (per [facility]) FNA x 2 in [id number]. She is having increasing trouble swallowing and [...] 06/04/2022 Assessment & Plan (02/12/2021 12:45 PM TYPING SECTION CHIEF): Risk of cardiac arrhythmias with discussed. The patient is following with cardiology Bone density also requested due to the risk of bone density loss in patient with subclinical hyperthyroidism Assessment & Plan (02/06/2017 4:43 PM TYPING SECTION CHIEF): Check TFT's Treat as indicated Assessment & Plan (01/09/2017 4:27 PM CDT): Long standing, related to MNG Repeat TFT's Recommendations to follow Most likely will watch without specific intervention. Multinodular goiter (nontoxic) 01/09/2017 09/26/2022 Assessment & Plan (02/12/2021 12:55 PM TYPING SECTION CHIEF): With FNA showing follicular lesion of unknown significance. With [facility] molecular testing, negative.less than 4 % change of malignancy. Will repeat thyroid ultrasound if not changes will continue monitoring Assessment & Plan (02/06/2017 4:42 PM TYPING SECTION CHIEF): Differential diagnosis would include benign nodule (macrofollicular [...] on file Legal Sex Female 7:24 PM TYPING SECTION CHIEF Gender Identity Female 02/08/2020 5:48 PM TYPING SECTION CHIEF Sexual Orientation Straight 02/08/2020 5: 48 PM TYPING SECTION CHIEF Last Filed Vital Signs Vital Sign Reading [...] on file Medical Devices Implanted Type Area Marketing Services Specialist Device Identifier Shelf Expiration Date Model / Serial / Lot Ethicon Endo Surgery Tvt Prolene 45x1.1cm Tape Mesh Transvaginal Blue [id number] - [id number] Implanted:Qty: 1 on 05/29/2022 by Aura Driscoll MD at [facility] Mesh N/A: Urethra Ethicon Endo Surgery [id number] 11/21/2024 [id number] / / [employer] Sls-Clip Ligate Triangular Wire Kathleen Groove Small Chevron Clip Latex Free Q0924-5 - [id number] Implanted:Qty: 2 on 05/20/2022 by Sameer Alan MD at [facility] [employer] [id number] / [facility] Sls-Clip Ligate Triangular Wire Kathleen Groove Small Chevron Clip Latex Free Q9345-2 - [id number] Implanted:Qty: 2 on 05/20/2022 by Sameer Alan MD at [facility] [id number] / / Procedures Procedure Name Priority Date/Time [...] with auto differential (07/14/2024 9:59 AM CDT) [facility] WBC 6.3 3.4 - 10.8 x10E3/uL [...] - 07/15/2024 12:07 AM CDT Performed at: [address] [place] [id number] Stator Winder: Jack Winslow PhD, Phone: [phone] us Eddie Funez MD LAB BLOOD ORDERABLES Armida l Result Performing Organization Address [facility] Co de Phone Number [facility] - * Hepatitis B core antibody, total Blood (07/14/2024 9:59 AM CDT) [facility] Hep B core IgG/IgM Negative Negative [facility] - Blood 07/14/2024 9:59 AM CDT 07/14/2024 Narrative [facility] - 07/15/2024 5:07 AM CDT Performed at: [address] [id number] Stator Winder: Jack Winslow PhD, Phone: [phone] Eddie Funez MD LAB MICROBIOLOGY - GENERA L ORDERABLES Final Result Performing Organization Address [facility] de Phone Number [facility] * Hepatitis B surface antibody (immune status) Blood (07/14/2024 9:59 AM CDT) [facility] HBsAb (immune status) Non Reactive [facility] - Comment: Non Reactive: Not immune to HBV infection. Equivocal: Unable to determine if anti-HBs is present at levels consistent with immunity. Reactive: Anti-HBs concentration detected at greater than 10 mIU/mL. Individual is considered to be immune to infection with HBV. Blood 07/14/2024 9:59 AM CDT 07/14/2024 Narrative [facility] - 07/15/2024 5:07 AM CDT Performed at: [address] [id number] Stator Winder: Jack Winslow PhD, Phone: [phone] Eddie Funez MD LAB MICROBIOLOGY - GENERA L ORDERABLES Final Result Performing Organization Address [facility] Co de Phone Number [facility] * Hepatitis B Surface Antigen Blood (07/14/2024 9:59 AM CDT) [facility] HepBsAg Negative Negative [facility] - 01 Blood 07/14/2024 9:59 AM CDT 07/14/2024 Narrative [facility] - 07/15/2024 5:07 AM CDT Performed at: [address] [place] [place] [id number] Stator Winder: Jack Winslow PhD, Phone: [phone] Eddie Funez MD LAB MICROBIOLOGY - GENERA L ORDERABLES Final Result Performing Organization Address [facility] de Phone Number [facility] * Lipid panel (07/14/2024 [...] - 07/15/2024 2:07 AM CDT Performed at: [address] [place] [id number] Stator Winder: Jack Winslow PhD, Phone: [phone] Eddie Funez MD LAB BLOOD ORDERABLES Armida l Result Performing Organization Address [facility] de Phone Number [facility] - * (ABNORMAL) Comprehensive [...] - 07/15/2024 1:07 AM CDT Performed at: [address] [place] [id number] Stator Winder: Jack Winslow PhD, Phone: [phone] us Eddie Funez MD LAB BLOOD ORDERABLES Armida taveras Result [facility] - 01 * Estradiol (07/14/2024 9:39 AM CDT) [facility] Estradiol <5.0 0.0 - 54.7 pg/mL [facility] - 01 Comment: Adult Female Range Follicular phase 12.5 - 166.0 Ovulation phase 85.8 - 498.0 Luteal phase 43.8 - 211.0 Postmenopausal <6.0 - 54.7 1st trimester 215.0 - >4300.0 Kathi ECLIA methodology Blood 07/14/2024 9:39 AM CDT 07/14/2024 Narrative [facility] - 07/15/2024 4:07 AM CDT Performed at: [address] [id number] Stator Winder: Jack Winslow PhD, Phone: [phone] Eddie Funez MD LAB BLOOD ORDERABLES Armida l Result [facility] - 01 * MAMMOGRAPHY (10/31/2023 2:52 PM CDT) Mammography Normal Historical Provider HEALTH MAINTENANCE Final Result * HEPATITIS C SCREENING (04/06/2023) SCRIBED HCV ab nonreactive Comment:Patient had checked through GI. She showed me a copy of the results through her [facility] [employer] garcia Historical Provider HEALTH MAINTENANCE Final Result * Colonoscopy (09/18/2016) Anatomical Region Laterality Modality Other Narrative 09/18/2016 Polypectomy; repeat in 3 years Historical Provider ENDOSCOPY PROCEDURES Armida l Result from Last 3 Months or Most Recently Relevant to Health Maintenance Insurance [facility] MEDICARE ADVANTAGE IDPA [facility] MEDICARE ADVANTAGE [facility] MEDICARE ADVANTAGE IDPA Advance Directives For more information, please contact: [phone] * Full Code (Latest Code Status on File) Date Activated Date Inactivated Comments 05/20/2022 3:24 PM 05/21/2022 2:16 PM * Full Code Date Activated Date Inactivated Comments 02/12/2022 11:40 AM 02/12/2022 6:05 PM Care Teams High Lift Operator Relationship Specialty Start Date End Date Eddie Funez MD [address] [place] [address] PCP - General Family Medicine 07/01/24 Minerva Serna MD Consulting Physician Gastroenterology 01/28/21 Alfie Vegas MD Consulting Physician Hematology 01/28/21 Toni Cintron MD [address] [place] [address] Consulting Physician Obstetrics and Gynecology 01/28/21 Brendan Thomas DPM [address] [place] [address] Consulting Physician Foot and Ankle Surg 01/28/21 Vivi Wood CNM [address] [place] [address] Nurse Practitioner Psychiatry 04/08/22 Tahmina Marvin MD [address] [place] [address] Referring Physician Pain Management 04/08/22 Cristofer Alicia MD [address] [place] [address] Referring Physician Neurosurgery 04/08/22 [place] [address] [facility] [address] [place] [address] Consulting Physician Endocrinology Diabetes & Metabolism 04/08/22 Roberto Carlos Fregoso MD [address] [facility] [place] [address] Referring Physician Otolaryngology 04/08/22 García Siddiqui DO [address] [facility] [place] [address] Referring Physician Surgery 04/08/22 Ana Delarosa MD [address] [place] [address] Consulting Physician Sleep Medicine 04/08/22 [place] [address] [place] [address] Surgeon Orthopedic Surgery 04/08/22 [place] [address] [place] [address] Referring Physician Orthopedic Surgery 04/08/22 [place] [address] [facility] [address] [place] [address] Consulting Physician Cardiology 04/08/22
--- OUTSIDE RECORDS SUMMARY | 2024-08-10 19:36 | XMS_ITS | Clinical Summary ---
Author Organization [facility] Address [address] [place] [address] Care Team Providers Care Grinder Chipper Name Role Phone Slick Quispe MD Primary Care Provider Source Comments [facility],non-owned Affiliates and Associated Physician Practices is amultiple site organization consisting of ambulatory clinics and hospital sitesin [place], [place], [place] and [place]. This disclosure is being madepursuant to the Care Everywhere program and may not contain all information available regarding this patient. Last updated 17.[facility] Allergies Active Allergy Reactions Criticality Noted Date Comments Lxxxvsrh-Julitpsaig-Vaezyqq in Rash Medium 05/27/2024 Severity depends on [...] times daily 10/31/19 22 Active HYDROcodone-aneta taminophen (Oakley) 10-325 MG tablet Take 1 (one) tablet [...] Description 05/31/2024 1:00 PM CDT Anesthesia Event [facility] [address] [address] Tai Carr MD 05/31/2024 12:50 PM CDT - 05/31/2024 2:40 PM CDT Surgery [facility] [address] [address] Zay Peraza DPM REMOVAL OF NEUROMA OF FOOT 2ND INTERSPACE//RESECTION OF DORSAL EXOSTOSIS FOOT, FAT PAD AUGMENTATION WITH ACELLULAR ALLOGRAFT OF FOOT 05/31/2024 10:27 AM CDT - 05/31/2024 4:02 PM CDT Hospital Encounter [facility] [address] [address] Zay Peraza DPM Surgery General Discharge Disposition: [...] Sex Assigned at Female 05/20/2022 6:45 PM JOB COACH Legal Sex Female 7:40 AM JOB COACH Gender Identity Female 05/20/2022 6:45 PM JOB COACH Sexual Orientation Straight 05/20/2022 6: 45 PM JOB COACH Last Filed Vital Signs Vital Sign Reading [...] this topic Medical Devices Implanted Type Area Analyzer Sales Device Identifier Shelf Expiration Date Model / Serial / Lot Graft Jacket Now Thick Implanted:Qty: 1 on 05/31/2024 by Zay Peraza DPM at [facility] Left: [employer] 10/10/2024 [id number] / / [id number] Viaflow Placental Tissue Matrix Implanted:Qty: 1 on 05/31/2024 by Zay Peraza DPM at [facility] Left: Break30 05/07/2028 [id number] / / Procedures Procedure Name Priority Date/Time Associated Diagnosis Comments PATHOLOGY TISSUE EXAM (STL) Routine 05/31/2024 1:56 PM CDT Diagnosis unknown TN EXCIS INTERDIGITAL NEUROMA,EA 05/31/2024 12:51 PM CDT Special Needs 60 MINS, NARAYAN GRAFT JACKET ROSALIA GIL CONFIRMED [phone] 05/26 LR MAMMOGRAM 06/18/2022 from Last 3 Months or Most Recently Relevant to Health Maintenance Results * PATHOLOGY TISSUE EXAM (STL) (05/31/2024 1:56 PM CDT) Case Report Surgical Pathology Report Case: [id number] Authorizing Provider: Zay Peraza DPM Collected: 05/31/2024 01:56 PM Ordering Location: [facility] Received: 06/01/2024 09:42 AM [facility] Pathologist: Kiarra Coello MD Specimen: Neuroma 06/02/2024 10:20 AM T [facility] Final Diagnosis Neuroma, left foot, excision: Consistent with neuroma. 06/02/2024 10:20 AM [facility] at 1020 CDT Gross Description Received in formalin labeled with the patient's name and neuroma left are 2 bellamy tissue fragments, 0.5 x 0.3 x 0.2 cm in aggregate. The specimen is filtered and entirely submitted in A1. 06/02/2024 10:20 AM [facility] Disclaimer All histochemical and/or immunohistochemical results are interpreted with controls that demonstrate appropriate staining reactions before reporting results. Note on use of immunocytochemistry reagents: This test was developed and its performance characteristic determined by [facility], Department of Laboratory Medicine. It has not [...] interpreted with caution. 06/02/2024 10:20 AM T [facility] Embedded Images 06/02/2024 10:20 AM [facility] Pathology/Cytolo gy NEUROMA / Unknown 05/31/2024 1:56 PM CDT 06/01/2024 9:42 AM CDT us Zay Peraza DPM LAB - PATHOLOGY/CYTOLOGY O RDERABLES Final Result [facility] [address] [id number] * MAMMOGRAM (06/18/2022) Anatomical Region Laterality Modality Other 06/18/2022 Narrative 06/18/2022 Ordered by an unspecified provider. us Scanned Document SCANNING ONLY Final Result from Last 3 Months or Most Recently Relevant to Health Maintenance Insurance MEDICAID - OUT OF STATE [facility] MANAGED MEDICARE ADV MEDICARE [facility] MANAGED MEDICARE [facility] [place]ICAID [place] Care Teams Grinder Chipper Relationship Specialty Start Date End Date Slick Quispe MD [address] [place] [address] PCP - General 08/02/21
--- OUTSIDE RECORDS SUMMARY | 2024-08-10 19:36 | XMS_ITS | Encounter Summary ---
Author Organization [facility] Address [address] [place] [address] Care Team Providers Care Portfolio Lead Name Role Phone Malathi Perez MD Primary Care Provider [phone] Encounter Details Date Type Department Care Team (Late st Contact Info) Description 12/27/2002 Outpatient Historical [facility] Tai Mariano MD [address] [place] [address] Dr VARMA [address] [place] [phone] REFLUX ESOPHAGITIS (Primary Dx) Social History Tobacco Use Types Packs/Day Years Used Date Smoking Tobacco: Never Assessed Comments Unknown Sex and Gender Information Value Date Recorded Sex Assigned at Not on file Legal Sex Female 5:18 AM BOOK AUTHOR Gender Identity Not on file Sexual Orientation Not on file documented as of this encounter Plan of Treatment Not on file documented as of this encounter Visit Diagnoses Diagnosis Reflux esophagitis- Primary documented in this encounter Care Teams Portfolio Lead Relationship Specialty Start Date End Date Malathi Perez MD PCP - General Family Practice 02/25/20 documented as of this encounter
--- OUTSIDE RECORDS SUMMARY | 2024-08-10 19:36 | XMS_ITS | Encounter Summary ---
Author Organization [facility] Healthcare Address [address] [place] [address] Care Team Providers Care Construction Trades Contractor Name Role Phone Kareem Minerva Phillips MD Unavailable Alfie Vegas MD Unavailable [phone] Toni Cintron MD Unavailable Brendan Thomas DPM Unavailable [phone] Vivi Wood CNM Unavailable Tahmina Marvin MD Unavailable Cristofer Alicia MD Unavailable Prashanth Lee MD Unavailable Roberto Carlos Fregoso MD Unavailable García Siddiqui DO Unavailable Ana Delarosa MD Unavailable Orion Sommer MD Unavailable [phone] Alban Hernandez MD Unavailable [phone] Rehana Mckeon MD Unavailable Eddie Funez MD Primary Care Provider [phone] Encounter Details Date Type Department Care Team (Late st Contact Info) Description 07/15/2024 Results Follow-Up [facility] [address] [phone] Eddie Funez MD Di [facility] [address] Estradiol, CBC with auto differential, Comprehensive metabolic [...] on file Legal Sex Female 7:24 PM SCRUMMASTER Gender Identity Female 02/08/2020 5:48 PM SCRUMMASTER Sexual Orientation Straight 02/08/2020 5: 48 PM SCRUMMASTER documented as of this encounter Miscellaneous Notes * Telephone Encounter - Nieves Messina MA - 07/15/2024 2:14 PM CDT Please advise on the estradiol and if you recommend that she take a supplement? documented in this encounter Plan of Treatment Not on file documented as of this encounter Visit Diagnoses Not on filedocumented in this encounter Care Teams Construction Trades Contractor Relationship Specialty Start Date End Date Eddie Funez MD [place] [address] PCP - General Family Medicine 07/01/24 Minerva Serna MD Consulting Physician Gastroenterology 01/28/21 Alfie Vegas MD Consulting Physician Hematology 01/28/21 Toni Cintron MD [address] [place] [address] Consulting Physician Obstetrics and Gynecology 01/28/21 Brendan Thomas DPM [address] [place], [place] [id number] Consulting Physician Foot and Ankle Surg 01/28/21 Vivi Wood CNM [address] [place] [address] Nurse Practitioner Psychiatry 04/08/22 Tahmina Marvin MD [address] [facility] [address] [place] [address] Referring Physician Pain Management 04/08/22 Cristofer Alicia MD [address] [facility] 2L [place] [id number] Referring Physician Neurosurgery 04/08/22 [place] [address] [place] [address] Consulting Physician Endocrinology Diabetes & Metabolism 04/08/22 Roberto aCrlos Fregoso MD 9 [facility] [place] [address] Referring Physician Otolaryngology 04/08/22 García Siddiqui DO [address] [facility] [place] [address] Referring Physician Surgery 04/08/22 Ana Delarosa MD [address] [place], [place] [id number] Consulting Physician Sleep Medicine 04/08/22 [place] [address] [place] [address] Surgeon Orthopedic Surgery 04/08/22 [place] [address] [place] [address] Referring Physician Orthopedic Surgery 04/08/22 [place] [address] [place] [address] Consulting Physician Cardiology 04/08/22 documented as of this encounter
--- OUTSIDE RECORDS SUMMARY | 2024-08-10 19:36 | XMS_ITS | Encounter Summary ---
Author Organization [facility] Address [address] [facility] [place] [address] Phone Care Team Providers Care Rand Tacker Name Role Phone Mary Diaz MD Primary Care Provider [phone] Reason for Referral * Radiology Services (Routine) - Closed Specialty Diagnoses / Procedures Referred By Victor Hugo nobles Referred To Contact Radiology Diagnoses Metatarsalgia Hammertoe of left foot Pre-op testing Procedures EKG 12 LEAD Yamilex Beyer DPM Phone: tel: fax: Referral ID Status Reason Start Date Expiration Date Visits Re quested Visits Authorized [id number] Closed 10/30/2022 1 1 Encounter Details Date Type Department Care Team (Latest Contact Info) Description 10/30/2022 Transcribe Orders [facility] Preop/Pacu II [address] [place] [address] Yamilex Beyer DPM [address] [place] [address] Metatarsalgia (Primary Dx); Hammertoe of left foot; Pre-op testing Social History Tobacco Use Types Packs/Day Years Used Date Smoking Tobacco: Former Cigarettes 3 37 Smokeless Tobacco: Never Alcohol Use Standard Drinks/Week Comments No 0 (1 standard drink = 0.6 oz pur e alcohol) Comments No Sex and Gender Information Value Date Recorded Sex Assigned at Female 05/07/2023 5:26 AM INTERNAL CONTROLS CONSULTANT Legal Sex Female 12:08 AM CDT Gender Identity Female 05/07/2023 5:26 AM INTERNAL CONTROLS CONSULTANT Sexual Orientation Straight 05/07/2023 5: 26 AM INTERNAL CONTROLS CONSULTANT 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 file Not on file [...] QTC CALCULATION 440 ms EXTERNAL EKG P [place] 2 degrees EXTERNAL EKG R [place] 79 degrees EXTERNAL EKG T [place] 75 degrees EXTERNAL EKG 11/11/2022 2:45 PM CDT Impressions EXTERNAL EKG - 11/14/2022 1:12 PM CDT Normal sinus rhythm Normal ECG No previous ECGs available Confirmed by Freddy Beaulieu ([id number]) on 11/14/2022 1:12:12 PM Narrative Procedure Note Freddy Witt MD - 11/14/2022 IMPRESSION: Normal sinus rhythm Normal ECG No previous ECGs available Confirmed by Freddy Beaulieu ([id number]) on 11/14/2022 1:12:12 PM us Yamilex Beyer DPM IMG ECG ORDERABLES Final Res ult EXTERNAL EKG * (ABNORMAL) BASIC METABOLIC PANEL W/ CALCIUM TOTAL (11/11/2022 2:39 PM CDT) SODIUM 145 136 - 145 mmol/L 11/11/2022 5:08 PM CDT [facility] POTASSIUM 2.9(L) 3.5 - 5.1 mmol/L 11/11/2022 5:08 PM CDT [facility] CHLORIDE 103 98 - 107 mmol/L 11/11/2022 5:08 PM CDT [facility] CO2, VENOUS 30 22 - 30 mmol/L 11/11/2022 5:08 PM CDT [facility] ANION GAP 14.9 <18.0 mmol/L 11/11/2022 5:08 PM CDT [facility] GLUCOSE 77 70 - 99 mg/dL 11/11/2022 5:08 PM CDT [facility] BUN 9(L) 10 - 20 mg/dL 11/11/2022 5:08 PM CDT [facility] CREATININE, BLOOD 0.68 0.60 - 1.00 mg/dL 11/11/2022 5:08 PM CDT [facility] BUN/CREATININE RATIO 13 12 - 20 ratio 11/11/2022 5:08 PM CDT [facility] CALCIUM 9.1 8.7 - 10.5 mg/dL 11/11/2022 5:08 PM CDT [facility] IS THE PATIENT REQUIRED TO BE FASTING? No 11/11/2022 5:08 PM CDT [facility] GFR, ESTIMATED >60 >=60 11/11/2022 5:08 PM T [facility] Comment: Creatinine Clearance is the preferred criteria for selecting drug dose adjustments in renally impaired patients. The GFR is provided as additional pertinent clinical information. GFR is reported in mL/min/1.73 sq m. Calculation based on the Chronic Kidney Disease Epidemiology Collaboration (CKD- EPI) equation refit without adjustment for race. GFR, EST. >60 >=60 023 5:08 PM CDT [facility] GFR, EST. NONAFRICAN >60 >=60 11/11/2022 5:08 PM CDT [facility] Blood Venipuncture / Unknown 11/11/2022 2:39 PM CDT 11/11/2022 4:38 PM CDT us Yamilex Beyer DPM CHEMISTRY ORDERABLES Final R esult [facility] [address] [place] [address] documented in this encounter Visit Diagnoses Diagnosis Metatarsalgia- Primary Enthesopathy of ankle and tarsus, unspecified Hammertoe of left foot Pre-op testing Preoperative examination, unspecified Metatarsalgia Enthesopathy of ankle and tarsus, unspecified Hammertoe of left foot Pre-op testing Preoperative examination, unspecified documented in this encounter Care Teams Rand Tacker Relationship Specialty Start Date End Date Mary Diaz MD [address] [place] [address] DR VARMA [address] [place] [address] PCP - General Family Medicine 06/30/22 documented as of this encounter
--- OUTSIDE RECORDS SUMMARY | 2024-08-10 19:36 | XMS_ITS | Clinical Summary ---
Author Organization [facility] Kathrine Mcintosh Address [address] [place] [address] Care Team Providers Care Central Service Supply Distributor Name Role Phone Malathi Perez MD Primary Care Provider [phone] Allergies No known active allergies Medications MELATONIN [...] 20 Active fluticasone propionate (FLONASE) 50 mcg/spray [place], Suspension nasal inhaler Administer 1 [place] in each nostril. 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
--- OUTSIDE RECORDS SUMMARY | 2024-08-10 19:36 | XMS_ITS | Encounter Summary ---
Author Organization [facility] Address 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
[2024-08-10 21:09] VITALS: BP 117/94; PULSE 88; RESP 18; O2SAT 100
== END 2024-08-10 21:10 | disposition home or self-care (01) ==
PROVIDERS: Physician Assistant; Emergency Provider Emergency Medicine; PCP Hospitalist
DX: K29.70 Gastritis, unspecified, without bleeding (principal); I10 Essential (primary) hypertension; Z20.822 Contact with and (suspected) exposure to COVID-19; J45.909 Unspecified asthma, uncomplicated; E55.9 Vitamin D deficiency, unspecified; E06.3 Autoimmune thyroiditis; E78.5 Hyperlipidemia, unspecified; G25.81 Restless legs syndrome; G47.33 Obstructive sleep apnea (adult) (pediatric); M79.7 Fibromyalgia; M81.0 Age-related osteoporosis without current pathological fracture; M17.0 Bilateral primary osteoarthritis of knee; M19.011 Primary osteoarthritis, right shoulder; F33.9 Major depressive disorder, recurrent, unspecified; E89.0 Postprocedural hypothyroidism; Z98.84 Bariatric surgery status; Z98.1 Arthrodesis status; Z96.641 Presence of right artificial hip joint; Z87.891 Personal history of nicotine dependence; Z90.711 Acquired absence of uterus with remaining cervical stump; Z90.49 Acquired absence of other specified parts of digestive tract; Z79.899 Other long term (current) drug therapy; K76.0 Fatty (change of) liver, not elsewhere classified; R93.3 Abnormal findings on diagnostic imaging of other parts of digestive tract; N13.1 Hydronephrosis with ureteral stricture, not elsewhere classified
CPT/HCPCS: 36415; 74177; 80053; 80143; 81001; 83605; 83690; 85025; 85610; 85730; 87637; 96374; 96375; 99284; J2405; Q9967

== ENCOUNTER 2024-08-11 17:19 | Observation (INO) | payer MEDICARE, MEDICAID, SELFPAY ==
--- NOTE | ~2024-08-11 | XR_ITS ---
Exam: Abdomen 1V HISTORY: ureterolithiasis COMPARISON: Reference is made to a CT examination of the abdomen and pelvis dated 08/10/2024 TECHNIQUE: Supine images of the abdomen FINDINGS: Redemonstration of a 9 x 5 mm calculus adjacent to the superior endplate of L3 projecting over the mi d left ureter. Residual intravenous contrast opacifies the now dilated collecting system of the left kidney. Fecal stasis is also noted, as are postoperative change right upper quadrant (an enteric staple line as well as multiple clips in the gallbladder fossa). IMPRESSION: Redemonstration of a calculus projecting over the mid left ureter, likely obstructing residual intrav enous contrast opacifies the dilated collecting system of the left kidney Reviewed, dictated and finalized at location A. IMPRESSION: Redemonstration of a calculus projecting over the mid left ureter, likely obstr ucting residual intravenous contrast opacifies the dilated collecting system of the left kidney
--- NOTE | ~2024-08-11 | XR_ITS ---
EXAMINATION: XR retrograde pyelo w/stent LT DATE: 08/12/2024 12:18 INDICATION: Left internal ureteral stent placement TECHNIQUE: Fluoroscopic images from a left internal ureteral stent placement are submitted for review . 87 seconds of fluoroscopy time. FINDINGS: There is a left double-J internal ureteral stent projecting in expected position, with proximal Castine loop at the level of the renal pelvis and distal loop in the pelvis within the bladder lumen. IMPRESSION: 1. Left internal ureteral stent placement. Please refer to real-time procedural findings for detail s. Reviewed, dictated and finalized at location B. IMPRESSION: 1. Left internal ureteral stent placement. Please refer to real-time procedur al findings for details.
--- OUTSIDE RECORDS SUMMARY | 2024-08-11 17:21 | XMS_ITS | Clinical Summary ---
Author Organization [facility] Address [address] [place] [address] Phone Care Team Providers Care Director Of Midwifery/Staff Midwife Name Role Phone Mary Diaz MD Primary [...] Information Patient not taking.Reported on 09/23/2023 Tiotropium [place] Monohydrate (SPIRIVA HANDIHALER IN) take by inhalation [...] Sex Assigned at Female 05/07/2023 5:26 AM CONCRETE CRUSHER LOADER OPERATOR Legal Sex Female 12:08 AM CDT Gender Identity Female 05/07/2023 5:26 AM CONCRETE CRUSHER LOADER OPERATOR Sexual Orientation Straight 05/07/2023 5: 26 AM CONCRETE CRUSHER LOADER OPERATOR 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 on file Not on file [...] this topic Medical Devices Implanted Type Area Stenotype Operator Device Identifier Shelf Expiration Date Model / Serial / Lot Tissue Placental Matrix Flowable Viaflow 2.0cc - [id number] Implanted:Qty: 1 on 10/09/2023 by [facility] IMPLANT Left: Ankle [employer] 04/17/2028 AMAF-0020 / AMAF-0020 / [id number] 2.5 Headles Screw Size 20 Implanted:Qty: 2 on 11/19/2022 by [facility]yer [facility] Left: Foot AR-8725-20 H / AR-8725-20 H / AR-8725-20 H Explanted Type Area Stenotype Operator Device Identifier Shelf Expiration Date Model / Serial / Lot 2.5 Headless Screw Size 12 Implanted:Qty: 2 on 11/19/2022 by [facility]ilex [facility]yer DPM at [facility] Explanted:Qty: 2 on 05/22/2023 by Yamilex Beyer DPM at [facility] Left: Foot ARTHREX AR-8725-12H / AR-8725-12H / AR-8725-12H Insurance MEDICAID [place] MEDICARE C [employer] Care Teams Director Of Midwifery/Staff Midwife Relationship Specialty Start Date End Date Mary Diaz MD [address] [place] [address] PCP - General Family Medicine 06/30/22
--- OUTSIDE RECORDS SUMMARY | 2024-08-11 17:21 | XMS_ITS | Patient Health Record ---
Author Organization [facility] Address [address] [place] [address] Care Team Providers Care Meter Changes Records Clerk Name Role Phone Irina Green Primary Care Provider Emmie Guevara Unavailable Allergies Allergen (clinical drug ingredient) Drug/Non Drug Allergy documented on EMR Reaction Allergy Type Onset Date Status Neosporin rash Drug Allergy Active Adhesive hives Allergy Active Reason For Referral No Information Medications Medication SIG (Take, Route, Frequency, Duration) Notes Start Date End Date Status Rosuvastatin Calcium 20 MG 1 tablet Oral ly Once a day Active ARIPiprazole 5 MG 1 tablet Orally Once a day for 30 day(s) 08/09/2024 Active Mupirocin Calcium 2 % as directed Externally Active Calcium Citrate 950 (200 Ca) MG 1 tablet Orally Once a day Active Spironolactone 25 MG 1 tablet Orally Active Bariatric Multivitamins/Iron - as directed Orally Active Estradiol 0.1 MG/GM as directed Vaginal [...] before bedtime Orally Once a day Active DULoxetine HCl 60 MG 1 capsule Orally On ce a day Active rOPINIRole HCl 3 MG [...] Status W/U Status Risk Notes Problem Depression (523440034) Depression (F32.9) Active confirmed Problem Over weight [...] 08/09/2024 Encounters Encounter Location Date Provider Diagnosis [address] [address] 08/09/2024 Irina Grangeran Depression F32.9 and Over weight E66.[address] [address] 08/09/2024 Emmie Guevara [address] [address] 08/09/2024 Irina Grangeran Depression F32.9 Assessments Encounter Date Diagnosis (ICD Code) Assessment Notes Treatment Notes Treatment Clinical Notes Section Notes 08/09/2024 Depression (ICD-10 - F32.9) 08/09/2024 Depression (ICD-10 - F32.9) Start Abilify. Take as prescribed. Reviewed purpose (mood stability), benefits, and risks - low blood pressure, metabolic syndrome with high cholesterol or high blood sugars, change in cardiac conduction, nausea, vomiting, temporary or permanent movement disorders, and akathisia. 08/09/2024 Over weight (ICD-10 - E66.3) 08/09/2024 Other Warm handoff to health navigator completed. Reasons, potential benefits, potential risks, interactions and side effects of all medications were discussed. The Patient/Guardian asked appropriate questions, appeared to understand the answers, and decided to accept the treatment and continue being followed. Alternatives and expected course without treatment were reviewed. The Patient/Guardian is aware of the need to contact the office or return for an earlier appointment if any problems or concerns arise. May also contact the 24-hour crisis hotline (R), refer to the closest emergency room or call 911 if new symptoms arise of existing symptoms worsen. The Patient/Guardian is aware that this would apply to symptoms like: suicidal ideation, homicidal ideation, high risk behaviors, manic symptoms, psychotic symptoms, physical symptoms, or any other symptoms that may be dangerous to self or others. Greater than 50% of time spent on coordination and counseling where psychopharmacology as well as psychotherapeutic interventions were discussed along with review of treatments in the past. Education provided concerning need for adequate hydration. Patient/Guardian verbalized understanding of education, treatment plan and follow up. Plan Of Treatment No Information Insurance Providers Payer Name Payer Address Payer Phone Subscriber Number Group Number Insured Name Patient Relationship to Insured Coverage Start Date Coverage End Date UHC AARP Medicare [address] [address] [place] [address] [id number] Flor Gallego Self - patient is the insured 5 MEDICAID [address] [place] [address] [id number] Flor Gallego Self - patient is the insured 5 Medical (General) History Surgical History Surgery Date(Month/Year) left foot - bone spur 2024 Hospitalization History Reason Date(Month/Year) [facility] 07/2024
--- OUTSIDE RECORDS SUMMARY | 2024-08-11 17:22 | XMS_ITS | Continuity of Care Document ---
Author Organization [facility] Address [address] [address] [place] [address] Phone Care Team Providers Care Tie Sawyer Name Role Phone Zay Peraza DPM Unavailable [...] Providers Copied on Encounter [facility], [address] [address] [address] [place] [address], [facility], tel:[phone] [facility] S/P foot surgery [address] [place], [place], [place], [id number] , . tel:[phone] Referring Provider: Eddie Gutiérrez, [address] [place] [address], [address] . tel:[phone] [facility], [address] [address] [address] [place] [address], [address], tel:[phone] [facility] S/P foot surgery [address] [place], [place], [place], [id number] , . [phone] Referring Provider: Eddie Gutiérrez, [address] [place] [address], [address] . tel:[phone] [facility], [address], [address], tel:[phone] [facility] S/P foot surgeryAtrophic disorder of skin, unspecified May-2 8 [address] [place], [place], [place], [id number] , [place]. tel: [phone] Referring Provider: Eddie Gutiérrez, [address] [facility], [place], [address] . tel:[phone] [facility], [address], [place], [address], tel:[phone] [facility] S/P foot surgery May-1 [address] [place] [place], [place], [place], [id number] , [place]. tel:[phone] Referring Provider: Eddie Gutiérrez, [address] [place] [address], [place], [address] . tel:[phone] [facility], [address] [facility] [address], [place], [place], [facility], [place] tel:[phone] [facility] Fat pad atrophy of footMorton's neuroma of left footExostosis of left foot May-0 5 [place], [place], [place], [id number] , [place]. tel:[phone] OFFICE/OUTPA TIENT VISIT EST [facility], [address] [facility] [address] [facility] [address], [place], [address], [place] tel:[phone] [facility] Injury of plantar plate of left foot, initial encounterFat pad atrophy of footMetatarsalgi a, left footBone spur of left footMorton's neuroma of left foot Apr- 5 [address] [facility] [address], [place], [place], [id number] , [place]. tel:[phone] Referring Provider: Eddie Gutiérrez, [address] [facility], [place], [address] . tel:[phone] [facility], [address], [place], [address], [place] tel:[phone] [facility] Fat pad atrophy of footMetatarsalgi a, left foot [address] [place], [place], [place], [id number] , [place]. tel:[phone] OFFICE/OUTPA TIENT VISIT EST [facility], [address], [place], [address], [place] tel:[phone] [facility] [place] Injury of plantar plate of left foot, initial encounterFat pad atrophy of footMetatarsalgi a, left foot Feb- [address] [place], [place], [place], [id number] , [place]. [phone] Referring Provider: Eddie Gutiérrez, [address] [place] [address], [address] . tel:[phone] OFFICE/OUTPA TIENT VISIT NEW [facility], [address], [place], [address], [place] tel:[phone] [facility] [place] Metatarsalgia, left footFat pad atrophy of footInjury of plantar plate of left foot, initial encounter [address] [place], [place], [place], [id number] , [place]. [phone] Referring Provider: Eddie Gutiérrez, [address] [place] [address], [address] . tel:[phone] Family History Family Member Type Diagnosis Age At Onset No Information Payers Payer name Insurance type Covered green party ID Zak plascenciajune(s) [facility] Medicare Advantage HMO/POS [id number] Social History Type Description Quantity Date [...]
--- OUTSIDE RECORDS SUMMARY | 2024-08-11 17:22 | XMS_ITS | Encounter Summary ---
Author Organization [facility] Address [address] [facility] [place] [address] Phone Care Team Providers Care Testing Manager Name Role Phone Mary Diaz MD Primary Care Provider [phone] Reason for Referral * Radiology Services (Routine) - Closed Specialty Diagnoses / Procedures Referred By Victor Hugo nobles Referred To Contact Radiology Diagnoses Metatarsalgia Hammertoe of left foot Pre-op testing Procedures EKG 12 LEAD Yamilex Beyer DPM Phone: tel: fax: Referral ID Status Reason Start Date Expiration Date Visits Re quested Visits Authorized [id number] Closed 10/30/2022 1 1 Encounter Details Date Type Department Care Team (Latest Contact Info) Description 10/30/2022 Transcribe Orders [facility] Preop/Pacu II [address] [place] [address] Yamilex Beyer DPM [address] [place] [address] Metatarsalgia (Primary Dx); Hammertoe of left foot; Pre-op testing Social History Tobacco Use Types Packs/Day Years Used Date Smoking Tobacco: Former Cigarettes 3 37 Smokeless Tobacco: Never Alcohol Use Standard Drinks/Week Comments No 0 (1 standard drink = 0.6 oz pur e alcohol) Comments No Sex and Gender Information Value Date Recorded Sex Assigned at Female 05/07/2023 5:26 AM TOUR GUIDE Legal Sex Female 12:08 AM CDT Gender Identity Female 05/07/2023 5:26 AM TOUR GUIDE Sexual Orientation Straight 05/07/2023 5: 26 AM TOUR GUIDE 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 on file Not on [...] QTC CALCULATION 440 ms EXTERNAL EKG P [place] 2 degrees EXTERNAL EKG R [place] 79 degrees EXTERNAL EKG T [place] 75 degrees EXTERNAL EKG 11/11/2022 2:45 PM CDT Impressions EXTERNAL EKG - 11/14/2022 1:12 PM CDT Normal sinus rhythm Normal ECG No previous ECGs available Confirmed by Freddy Beaulieu ([id number]) on 11/14/2022 1:12:12 PM Narrative Procedure Note Freddy Witt MD - 11/14/2022 IMPRESSION: Normal sinus rhythm Normal ECG No previous ECGs available Confirmed by Freddy Beaulieu ([id number]) on 11/14/2022 1:12:12 PM us Yamilex Beyer DPM IMG ECG ORDERABLES Final Res ult EXTERNAL EKG * (ABNORMAL) BASIC METABOLIC PANEL W/ CALCIUM TOTAL (11/11/2022 2:39 PM CDT) SODIUM 145 136 - 145 mmol/L 11/11/2022 5:08 PM CDT [facility] POTASSIUM 2.9(L) 3.5 - 5.1 mmol/L 11/11/2022 5:08 PM CDT [facility] CHLORIDE 103 98 - 107 mmol/L 11/11/2022 5:08 PM CDT [facility] CO2, VENOUS 30 22 - 30 mmol/L 11/11/2022 5:08 PM CDT [facility] ANION GAP 14.9 <18.0 mmol/L 11/11/2022 5:08 PM CDT [facility] GLUCOSE 77 70 - 99 mg/dL 11/11/2022 5:08 PM CDT [facility] BUN 9(L) 10 - 20 mg/dL 11/11/2022 5:08 PM CDT [facility] CREATININE, BLOOD 0.68 0.60 - 1.00 mg/dL 11/11/2022 5:08 PM CDT [facility] BUN/CREATININE RATIO 13 12 - 20 ratio 11/11/2022 5:08 PM CDT [facility] CALCIUM 9.1 8.7 - 10.5 mg/dL 11/11/2022 5:08 PM CDT [facility] IS THE PATIENT REQUIRED TO BE FASTING? No 11/11/2022 5:08 PM CDT [facility] GFR, ESTIMATED >60 >=60 11/11/2022 5:08 PM T [facility] Comment: Creatinine Clearance is the preferred criteria for selecting drug dose adjustments in renally impaired patients. The GFR is provided as additional pertinent clinical information. GFR is reported in mL/min/1.73 sq m. Calculation based on the Chronic Kidney Disease Epidemiology Collaboration (CKD- EPI) equation refit without adjustment for race. GFR, EST. >60 >=60 023 5:08 PM CDT [facility] GFR, EST. NONAFRICAN >60 >=60 11/11/2022 5:08 PM CDT [facility] Blood Venipuncture / Unknown 11/11/2022 2:39 PM CDT 11/11/2022 4:38 PM CDT us Yamilex Beyer DPM CHEMISTRY ORDERABLES Final R esult [facility] [address] [place] [address] documented in this encounter Visit Diagnoses Diagnosis Metatarsalgia- Primary Enthesopathy of ankle and tarsus, unspecified Hammertoe of left foot Pre-op testing Preoperative examination, unspecified Metatarsalgia Enthesopathy of ankle and tarsus, unspecified Hammertoe of left foot Pre-op testing Preoperative examination, unspecified documented in this encounter Care Teams Testing Manager Relationship Specialty Start Date End Date Mary Diaz MD [address] [place] [address] DR VARMA [address] [place] [id number] PCP - General Family Medicine 06/30/22 documented as of this encounter
--- OUTSIDE RECORDS SUMMARY | 2024-08-11 17:22 | XMS_ITS | Clinical Summary ---
Author Organization [facility] Kathrine Mcintosh Address [address] [place] [address] Care Team Providers Care Vision Impaired Teacher Name Role Phone Malathi Perez MD Primary Care Provider [phone] Allergies No known active allergies Medications MELATONIN [...] 20 Active fluticasone propionate (FLONASE) 50 mcg/spray [place], Suspension nasal inhaler Administer 1 [place] in each nostril. Active gabapentin (NEURONTIN) 100 [...] on file Legal Sex Female 5:18 AM MINIATURE SET CONSTRUCTOR Gender Identity Not on file Sexual Orientation [...] Td or Tdap) 01/10/2030 Insurance Care Teams Vision Impaired Teacher Relationship Specialty Start Date End Date Malathi Perez MD PCP - General Family Practice 02/25/20
--- OUTSIDE RECORDS SUMMARY | 2024-08-11 17:22 | XMS_ITS | Encounter Summary ---
Author Organization [facility] Address [address] [facility] [place] [address] Phone Care Team Providers Care Behavioral Medical Director Name Role Phone Mary Diaz MD Primary Care Provider Encounter Details Date Type Department Care Team (Latest Contact Info) Description 05/13/2023 Transcribe Orders [facility] Preop/Pacu II [address] [place] [address] Yamilex Beyer, DPM [address] [place] [address] Pre-op testing (Primary Dx) Social History Tobacco Use Types Packs/Day Years Used Date Smoking Tobacco: Former Cigarettes 3 37 1 972 - 2009 Smokeless Tobacco: Never Alcohol Use Standard Drinks/Week Comments No 0 (1 standard drink = 0.6 oz pur e alcohol) Comments No Sex and Gender Information Value Date Recorded Sex Assigned at Female 05/07/2023 5:26 AM FINANCIAL SERVICES REP Legal Sex Female 12:08 AM CDT Gender Identity Female 05/07/2023 5:26 AM FINANCIAL SERVICES REP Sexual Orientation Straight 05/07/2023 5: 26 AM FINANCIAL SERVICES REP 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 Not on file Not on file documented as of this encounter Plan of Treatment Not on file documented as of this encounter Results * (ABNORMAL) BASIC METABOLIC PANEL W/ CALCIUM TOTAL (05/14/2023 1:28 PM FINANCIAL SERVICES REP) SODIUM 143 136 - 145 mmol/L 05/14/2023 3:05 PM [facility] POTASSIUM 2.9(L) 3.5 - 5.1 mmol/L 05/14/2023 3:05 PM [facility] CHLORIDE 103 98 - 107 mmol/L 05/14/2023 3:05 PM [facility] CO2, VENOUS 31(H) 22 - 30 mmol/L 05/14/2023 3:05 PM [facility] ANION GAP 11.9 <18.0 mmol/L 05/14/2023 3:05 PM [facility] GLUCOSE 79 70 - 99 mg/dL 05/14/2023 3:05 PM [facility] BUN 11 10 - 20 mg/dL 05/14/2023 3:05 PM [facility] CREATININE, BLOOD 0.61 0.60 - 1.00 mg/dL 05/14/2023 3:05 PM [facility] BUN/CREATININE RATIO 18 12 - 20 ratio 05/14/2023 3:05 PM [facility] CALCIUM 8.6(L) 8.7 - 10.5 mg/dL 05/14/2023 3:05 PM [facility] IS THE PATIENT REQUIRED TO BE FASTING? No 05/14/2023 3:05 PM [facility] GFR, ESTIMATED >60 >=60 05/14/2023 3:05 PM [facility] Comment: Creatinine Clearance is the preferred criteria for selecting drug dose adjustments in renally impaired patients. The GFR is provided as additional pertinent clinical information. GFR is reported in mL/min/1.73 sq m. Calculation based on the Chronic Kidney Disease Epidemiology Collaboration (CKD- EPI) equation refit without adjustment for race. GFR, EST. >60 >=60 024 3:05 PM [facility] GFR, EST. NONAFRICAN >60 >=60 05/14/2023 3:05 PM FINANCIAL SERVICES REP [facility] Blood Venipuncture / Unknown 05/14/2023 1:28 PM FINANCIAL SERVICES REP 05/14/2023 2:37 PM FINANCIAL SERVICES REP us Yamilex Beyer DPM CHEMISTRY ORDERABLES Final R esult [facility] [address] [place] [address] documented in this encounter Visit Diagnoses Diagnosis Pre-op testing- Primary Preoperative examination, unspecified documented in this encounter Care Teams Behavioral Medical Director Relationship Specialty Start Date End Date Mary Diaz MD [address] [place] [address] [place] [address] PCP - General Family Medicine 06/30/22 documented as of this encounter
--- OUTSIDE RECORDS SUMMARY | 2024-08-11 17:22 | XMS_ITS | Data Portability ---
Author Organization [facility] Medical, Main Office Address [address] [place] [address] Assessment No assessment recorded. Plan of Treatment Reminders Order Date Submit Date Provider Last Modified By Organization Details Last Modified Time Details Appointments None recorded. Lab ceruloplasm in, serum [address] (Lab), [address] [place], [address], 4 12:03:52 mitochondri al Ab, serum [address] (Lab), [address] [place], [address], 4 12:03:57 smooth muscle Ab, serum [address] (Lab), [address] [place], [address], 4 12:04:02 HBsAg (hepatitis B surface Ag), serum [address] (Lab), [address] [place], [address], 4 12:04:07 hepatitis C RNA, qualitative , serum [address] (Lab), [address] [place], [address], 4 12:04:12 Referral colon & rectal surgeon referral - Please contact patient to schedule 2024 025 [email or web address] Gretchen Hollins MD, [address] [place] [address], [address], 08:05:17 Procedures None recorded. Surgeries None recorded. Imaging None recorded. Medication Orders None recorded. Patient TargetsNo targets recorded. Patient Instructions Encounter Date Encounter Id Patient Instructions Last Modified By Organization Details Last Modified Time 04/09/2023 [id number] PT WITH ELEVATED LIVER ENZYMES . SX ARE MOST LIKELY B/C STATIN MED . CHECK LIVER MARKERS . F/U IN 4 WEEKS . Not available 04/09/2023 16:06:57 07/14/2024 [id number] PT WITH RECTAL PROLAPSE . REFER TO DR HOLLINS. [email or web address] Not available 07/14/2024 13:04:20 Reason for Referral [...] Recorded Time Chronic obstructiv e pulmonary disease 98727185 Active Not Available [facility] 3 07:29:57 Non-toxic nodular goiter 238477351 Active 2016 Not Available [facility] 3 07:29:57 Tobacco dependence in remission 861956061 Active Not Available [facility] 3 07:29:57 Asthma 552932950 Active Not Available [facility] 3 07:29:57 Localized, primary osteoarthr itis of the pelvic region and thigh 003154543 Active Not Available [facility] 3 07:29:57 Gastroesop hageal reflux disease 569132788 Active Not Available [facility] 3 07:29:57 Gastroesop hageal reflux disease without esophagiti s 093199894 Active 2021 Not Available [facility] 3 07:29:57 History of emphysema 376555277440 40067 Active Not Available [facility] 3 07:29:57 Vaginal discharge 475719390 Active Not Available [facility] 3 07:29:57 Lymphadeno yazan 55533366 Active Not Available [facility] 3 07:29:57 Vaginitis 14273902 Active Not Available [facility] 3 07:29:58 Mild chronic obstructiv e pulmonary disease 044628654 Active Not Available [facility] 3 07:29:58 Bronchitis 77200540 Active Not Available [facility] 3 07:29:58 Depressive disorder 12838409 Active Not Available [facility] 3 07:29:58 Major depressive disorder 768873366 Active Not Available [facility] 3 07:29:58 Hypertensi ve disorder 22625319 Active Not Available [facility] 3 07:29:58 Osteoarthr itis 847027070 Active knee, pelvic and thigh Not Available [facility] 3 07:29:58 Subclinica l hyperthyro idism 129951608 Active 2016 Not Available [facility] 3 07:29:58 Hypokalemi a 60758649 Active Not Available [facility] 3 07:29:58 Migraine with aura 8329447 Active 2017 Not Available [facility] 3 07:29:58 Hoarse 36184753 Active Not Available [facility] 3 07:29:59 Hyperlipid emia 23018640 Active Not Available [facility] 3 07:29:59 Female stress incontinen ce 82781375 Active Not Available [facility] 3 07:29:59 Polyp of colon 45115295 Active 2016 Not Available [facility] 3 07:29:59 Degenerati on of interverte bral disc 39427393 Active Not Available [facility] 3 07:29:59 Obstructiv e sleep apnea syndrome 95695925 Active Not Available [facility] 3 07:29:59 Fatigue 45525128 Active Not Available [facility] 3 07:29:59 Thyrotoxic osis 98454111 Active 2016 Not Available [facility] 3 07:29:59 Primary fibromyalg ia syndrome 08508925 Active Not Available [facility] 3 07:30:00 Liver enzymes level above reference range 251096277 Active 2023 Minerva Serna MD [address] [facility] [place] [address], [place], [address] , [place] 4 16:01:54 Rectal prolapse 88906708 Active 2024 Minerva Serna MD [address], [place], [address] , [place] 5 13:03:30 Problem Notes None recorded. Procedures Surgical History Date Name Laterality Status Provider Name and Address Organization Details Recorded Time 1 Gastric Bypass completed Not Available [facility] 05/22/2022 07:26:21 Imaging Results None recorded. Procedure Notes None recorded. Medical Equipment None Reported. Allergies Allergen ID Allergen Name Allergen Category Reaction Reaction Severity Criticality Documentation Date Start Date Code Code System Note Provider Name and Address Organization Details Recorded Time 41557 bacitraci n / neomycin / polymyxin B medicatio n itching rash moderate mild Not available 05/22/20222015 63784 9 RxNorm Not Available [facility] 3 07:34:24 07805 lisinopri l medicatio n Not available Not available Not available 05/22/2022 16619 RxNorm error not aller gic per pt Not Available [facility] 3 07:34:25 Medications Name Sig Start [...] % 97 % 84 /min 98.3 [degF] 36814.9 3 g 128 mm[Hg] 82 mm[Hg] Not Available [facility] 3 07:29:01 Date Recorded Body mass index (BMI) Body height Oxygen saturation Oxygen saturation in Arterial blood by Pulse oximetry Heart rate Body temperature Body weight Systolic blood pressure Diastolic blood pressure Provider Name and Address Organization Details Last Updated DateTime 3 23.7 kg/m2 162.56 cm 100 % 100 % 66 /min 97 [degF] 28276.7 5 g 122 mm[Hg] 82 mm[Hg] Not Available [facility] 3 07:29:01 Date Recorded Body height Body mass index (BMI) Body weight Heart rate Systolic blood pressure Diastolic blood pressure Provider Name and Address Organization Details Last Updated DateTime 4 162.56 cm 23.7 kg/m2 07333.7 5 g 64 /min 120 mm[Hg] 80 mm[Hg] Renaldo Penn Aylin [place] 4 15:22:44 Date Recorded Body height Body mass index (BMI) Body weight Heart rate Oxygen saturation Oxygen saturation in Arterial blood by Pulse oximetry Systolic blood pressure Diastolic blood pressure Provider Name and Address Organization Details Last Updated DateTime 5 162.56 cm 26.8 kg/m2 87550.4 1 g 103 /min 98 % 98 % 118 mm[Hg] 72 mm[Hg] Renadlo Penn Aylin [place] 5 12:14:09 Social History Question Answer Notes LastModified by [employer] Details LastModified Time Tobacco Smoking Status Never Smoker Mc soler [place] 04/09/2023 15:21:54 What Is Your Level Of Caffeine Consumption? None [id number] Information not available 05/22/2022 What Type Of Diet Are You Following? REGULAR [id number] Information not available 05/22/2022 What Was The Date Of Your Most Recent Tobacco Screening? 03/27/2022 Information not available 04/09/2023 What Is Your Relationship Status? [id number] Information not available 05/22/2022 Have You Recently Traveled Abroad? No Information not available 04/09/2023 Sex: Female Functional Status Question Answer Note LastModified by [employer] Details LastModified Time What is your level of alcohol consumption? Occasional [id number] Information not available 05/22/2022 Mental Status None recorded. Family History Relationship Description Onset Age of this Age Resolved Age Notes LastModified by Organization Details LastModified Time Maternal Grandfather Diabetes mellitus [id number] Not available 05/22/2022 07:26:23 Maternal Grandmother Malignant tumor of colon [email or web address] Not available 2023 15:21:52 Medical History No medical history recorded. Gynecological HistoryNo gynecological history recorded. Obstetrics History GPAL:G 0 P 0 0 0 0 Immunizations Vaccine Type Date Status Note Provider Nam e and Address Organization Details Recorded Time Tdap 0 completed Not Available [facility] 05/22/2022 07:34:18 Influenza, split virus, quadrivalent, preservative 0 completed Not Available [facility] 05/22/2022 07:34:19 Past Encounters Encounter ID Performer Location Encounter Start Date Encounter Closed Date Diagnosis/Indication Diagnosis SNOMED-CT Code Diagnosis ICD10 Code Diagnosis Note [id number] _ATHN_MIGR ATION_1 _ATHENA_M IGRATION_ DEFAULT_1 _1 , 09/05/2021 00:00:00 09/05/2021 15:10:26 [id number] _ATHN_MIGR ATION_1 _ATHENA_M IGRATION_ DEFAULT_1 _1 , 03/27/2022 00:00:00 03/27/2022 12:19:10 [id number] Minerva Serna MD [facility] General Surgery [address] [place] [phone] 04/09/2023 15:21:03 04/10/2023 10:02:05 Liver enzymes level above reference range 186919566 R74.01 [id number] Minerva Serna MD [facility] General Surgery [address] [place] [phone] 07/14/2024 12:08:06 07/14/2024 12:33:24 Rectal prolapse 77365774 K62.3 Health Concerns Section Related Observation LastModified by Organization Detai ls LastModified Time None Recorded Concern Status LastModified by Organization Details LastModified Time None Recorded Advance Directives Directive None Recorded Payers Encounter Date Sequence Insurance Name Policy Number Policy Reaves Covered Member ID Reaves Member ID Guarantor Name 04/09/2023 1 [facility] (MEDICARE REPLACEMENT/A DVANTAGE - PPO) [id number] Flor Gallego [id number] Flor Rodriguezimino 04/09/2023 2 [place] Flor Dickerson Julián [id number] Flor Dickerson Julián 07/14/2024 1 [facility] (MEDICARE REPLACEMENT/A DVANTAGE - PPO) [id number] Flor Dickerson Julián [id number] Flor Dickerson Julián 07/14/2024 2 [place] [facility] Flor Dickerson Julián [id number] Flor Dickerson Julián Notes Date Note Type [...] Serna MD [address], [place], [address], [place] 04/09/2023 16:07:25 07/14/2024 text/html NOAH WAS SEEN IN THE OFFICE FOR A F/U .PT IS C/O RECTAL PAIN . SHE APPARENTLY HAD A RECTAL PROLAPSE THAT WAS REDUCIBLE . THIS HAPPENED DURING DIARREHA/ SNEEZING . Minerva Serna MD [address], [place], [address], [place] 07/14/2024 13:04:38 OBGyn Episode No OBEpisode recorded.
--- OUTSIDE RECORDS SUMMARY | 2024-08-11 17:22 | XMS_ITS | Clinical Summary ---
Author Organization [facility] Address [address] [place] [address] Care Team Providers Care Lung Puller Name Role Phone Slick Quispe MD Primary Care Provider Source Comments [facility],non-owned Affiliates and Associated Physician Practices is amultiple site organization consisting of ambulatory clinics and hospital sitesin [place], [place], [place] and [place]. This disclosure is being madepursuant to the Care Everywhere program and may not contain all information available regarding this patient. Last updated 17.[facility] Allergies Active Allergy Reactions Criticality Noted Date Comments Stkluipe-Bukqiddtcq-Oflgflc in Rash Medium 05/27/2024 Severity depends on [...] times daily 10/31/19 22 Active HYDROcodone-aneta taminophen ([place]) 10-325 MG tablet Take 1 (one) tablet [...] Description 05/31/2024 1:00 PM CDT Anesthesia Event [facility] [address] [id number] Tai Carr MD 05/31/2024 12:50 PM CDT - 05/31/2024 2:40 PM CDT Surgery [facility] - [place] Op [address] [address] Zay Peraza DPM REMOVAL OF NEUROMA OF FOOT 2ND INTERSPACE//RESECTION OF DORSAL EXOSTOSIS FOOT, FAT PAD AUGMENTATION WITH ACELLULAR ALLOGRAFT OF FOOT 05/31/2024 10:27 AM CDT - 05/31/2024 4:02 PM CDT Hospital Encounter [facility] [facility] [address] [address] Zay Peraza DPM Surgery General Discharge Disposition: [...] Sex Assigned at Female 05/20/2022 6:45 PM BLENDING PLANT OPERATOR Legal Sex Female 7:40 AM BLENDING PLANT OPERATOR Gender Identity Female 05/20/2022 6:45 PM BLENDING PLANT OPERATOR Sexual Orientation Straight 05/20/2022 6: 45 PM BLENDING PLANT OPERATOR Last Filed Vital Signs Vital Sign [...] this topic Medical Devices Implanted Type Area Policy Specialist Device Identifier Shelf Expiration Date Model / Serial / Lot Graft Jacket Now Thick Implanted:Qty: 1 on 05/31/2024 by Zay Peraza DPM at [facility] Left: [employer] 10/10/2024 [id number] / / [id number] Viaflow Placental Tissue Matrix Implanted:Qty: 1 on 05/31/2024 by Zay Peraza DPM at [facility] Left: [employer] 05/07/2028 [id number] / / Procedures Procedure Name Priority Date/Time Associated Diagnosis Comments PATHOLOGY TISSUE EXAM (STL) Routine 05/31/2024 1:56 PM CDT Diagnosis unknown ID EXCIS INTERDIGITAL NEUROMA,EA 05/31/2024 12:51 PM CDT Special Needs 60 MINS, NARAYAN GRAFT JACKET ROSALIA GIL CONFIRMED [phone] 05/26 LR MAMMOGRAM 06/18/2022 from Last 3 Months or Most Recently Relevant to Health Maintenance Results * PATHOLOGY TISSUE EXAM (STL) (05/31/2024 1:56 PM CDT) Case Report Surgical Pathology Report Case: [id number] Authorizing Provider: Zay Peraza DPM Collected: 05/31/2024 01:56 PM Ordering Location: [facility] Received: 06/01/2024 09:42 AM Hospital - [facility] Pathologist: Kiarra Coello MD Specimen: Neuroma 06/02/2024 10:20 AM T [facility] Final Diagnosis Neuroma, left foot, excision: Consistent with neuroma. 06/02/2024 10:20 AM [facility] at 1020 CDT Gross Description Received in formalin labeled with the patient's name and neuroma left are 2 bellamy tissue fragments, 0.5 x 0.3 x 0.2 cm in aggregate. The specimen is filtered and entirely submitted in A1. 06/02/2024 10:20 AM [facility] Disclaimer All histochemical and/or immunohistochemical results are interpreted with controls that demonstrate appropriate staining reactions before reporting results. Note on use of immunocytochemistry reagents: This test was developed and its performance characteristic determined by [facility], Department of Laboratory Medicine. It has [...] interpreted with caution. 06/02/2024 10:20 AM T [facility] Embedded Images 06/02/2024 10:20 AM [facility] Pathology/Cytolo gy NEUROMA / Unknown 05/31/2024 1:56 PM CDT 06/01/2024 9:42 AM CDT us Zay Peraza DPM LAB - PATHOLOGY/CYTOLOGY O RDERABLES Final Result [facility] [address] [id number] * MAMMOGRAM (06/18/2022) Anatomical Region Laterality Modality Other 06/18/2022 Narrative 06/18/2022 Ordered by an unspecified provider. us Scanned Document SCANNING ONLY Final Result from Last 3 Months or Most Recently Relevant to Health Maintenance Insurance MEDICAID - OUT OF STATE [facility] MANAGED MEDICARE ADV MEDICARE [facility] MANAGED MEDICARE [facility] MEDICAID - [place] Care Teams Lung Puller Relationship Specialty Start Date End Date Slick Quispe MD [address] [place] [address] PCP - General 08/02/21
--- OUTSIDE RECORDS SUMMARY | 2024-08-11 17:22 | XMS_ITS | Encounter Summary ---
Author Organization [facility] Address [address] [place] [address] Care Team Providers Care Bedspread Cutter Hand Name Role Phone Malathi Perez MD Primary Care Provider [phone] Encounter Details Date Type Department Care Team (Late st Contact Info) Description 11/25/2002 Outpatient Historical [facility] Cody Rubio MD [address] [address] COUGH (Primary Dx) Social History Tobacco Use Types Packs/Day Years Used Date Smoking Tobacco: Never Assessed Comments Unknown Sex and Gender Information Value Date Recorded Sex Assigned at Not on file Legal Sex Female 5:18 AM HUMAN SERVICES MANAGER Gender Identity Not on file Sexual Orientation Not on file documented as of this encounter Plan of Treatment Not on file documented as of this encounter Visit Diagnoses Diagnosis Cough- Primary documented in this encounter Care Teams Bedspread Cutter Hand Relationship Specialty Start Date End Date Malathi Perez MD PCP - General Family Practice 02/25/20 documented as of this encounter
--- OUTSIDE RECORDS SUMMARY | 2024-08-11 17:22 | XMS_ITS | Encounter Summary ---
Author Organization [facility] Address [address] [place] [address] Care Team Providers Care Drug Regulatory Affairs Specialist Name Role Phone Kareem Minerva Phillips MD Unavailable Alfie Vegas MD Unavailable [phone] Toni Cintron MD Unavailable [phone] Brendan Thomas DPM Unavailable [phone] Vivi Wood CNM Unavailable Tahmina Marvin MD Unavailable Cristofer Alicia MD Unavailable [phone] Prashanth Lee MD Unavailable Roberto Carlos Fregoso MD Unavailable García Siddiqui DO Unavailable Ana Delarosa MD Unavailable [phone] Orion Sommer MD Unavailable Alban Hernandez MD Unavailable [phone] Rehana Mckeon MD Unavailable Eddie Funez MD Primary Care Provider [phone] Encounter Details Date Type Department Care Team (Late st Contact Info) Description 07/15/2024 Results [facility] [address] [id number] Eddie Funez MD Di [facility] [place] [address] Estradiol, CBC with auto differential, Comprehensive metabolic [...] on file Legal Sex Female 7:24 PM EXPERIENCE SPECIALIST Gender Identity Female 02/08/2020 5:48 PM EXPERIENCE SPECIALIST Sexual Orientation Straight 02/08/2020 5: 48 PM EXPERIENCE SPECIALIST documented as of this encounter Miscellaneous Notes * Telephone Encounter - Nieves Messina MA - 07/15/2024 2:14 PM CDT Please advise on the estradiol and if you recommend that she take a supplement? documented in this encounter Plan of Treatment Not on file documented as of this encounter Visit Diagnoses Not on filedocumented in this encounter Care Teams Drug Regulatory Affairs Specialist Relationship Specialty Start Date End Date Eddie Funez MD [address] [place] [address] PCP - General Family Medicine 07/01/24 Minerva Serna MD Consulting Physician Gastroenterology 01/28/21 Alfie Vegas MD Consulting Physician Hematology 01/28/21 Toni Cintron MD [address] [place] [address] Consulting Physician Obstetrics and Gynecology 01/28/21 Brendan Thomas DPM [address] [place], [place] [id number] Consulting Physician Foot and Ankle Surg 01/28/21 Vivi Wood CNM [address] [place] [address] Nurse Practitioner Psychiatry 04/08/22 Tahmina Marvin MD [address] [place] [address] Referring Physician Pain Management 04/08/22 Cristofer Alicia MD [address] [facility] [address] [place] [id number] Referring Physician Neurosurgery 04/08/22 [place] [address] [place] [address] Consulting Physician Endocrinology Diabetes & Metabolism 04/08/22 Roberto Carlos Fregoso MD [address] [facility] [place] [address] Referring Physician Otolaryngology 04/08/22 García Siddiqui DO [address] [facility] [place] [address] Referring Physician Surgery 04/08/22 Ana Delarosa MD [address] [place], [place] [id number] Consulting Physician Sleep Medicine 04/08/22 [place] [address] [place] [address] Surgeon Orthopedic Surgery 04/08/22 [place] [address] [place] [address] Referring Physician Orthopedic Surgery 04/08/22 [place] [address] [place] [address] Consulting Physician Cardiology 04/08/22 documented as of this encounter
--- OUTSIDE RECORDS SUMMARY | 2024-08-11 17:22 | XMS_ITS | Encounter Summary ---
Author Organization [facility] Address [address] [place] [address] Care Team Providers Care Senior Accountant Analyst Name Role Phone Malathi Perez MD Primary Care Provider [phone] Encounter Details Date Type Department Care Team (Late st Contact Info) Description 11/25/2002 Outpatient Historical [facility] Primary Care - [address] [place] [address] Cody Rubio MD [address] [facility] [address] [facility] [address] [place] [address] Social History Tobacco Use Types Packs/Day Years Used Date Smoking Tobacco: Never Assessed Comments Unknown Sex and Gender Information Value Date Recorded Sex Assigned at Not on file Legal Sex Female 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
--- OUTSIDE RECORDS SUMMARY | 2024-08-11 17:22 | XMS_ITS | Clinical Summary ---
Author Organization [facility] Address [address] [place] [address] Care Team Providers Care Glass Unloading Equipment Tender Name Role Phone Evon Sernatera Phillips MD Unavailable Alfie Vegas MD Unavailable [phone] Toni Cintron MD Unavailable [phone] Brendan Thomas DPM Unavailable [phone] Vivi Wood CNM Unavailable Tahmina Marvin MD Unavailable Cristofer Alicia MD Unavailable Prashanth Lee MD Unavailable Roberto Carlos Fregoso MD Unavailable García Siddiqui DO Unavailable Ana Delarosa MD Unavailable [phone] Orion Sommer MD Unavailable Alban Hernandez MD Unavailable Rehana Mckeon MD Unavailable Eddie Funez MD Primary Care Provider [phone] Allergies Active Allergy Reactions Criticality Noted Date Comments Adhesive Other (See comments) Low 05/16/2022 Tears skin Bacitracin Rash Medium 02/04/2024 Neomycin Sulfate Rash Medium 02/04/2024 Dumtoske-Dktkmuprre-Joexdadf n Itching,Rash Medium 06/07/2015 Polymyxin B Rash [...] Nasal saline spray (Simply saline, Little Remedies, [place], [place]) 2 second sprays or 2 squeezes into [...] evaluation Assessment & Plan (04/30/2023 5:32 PM PLANER HAND): Noted on more recent labs. Patient had some blood work through her specialists. I have encouraged her to get me a copy of these to review Transaminitis 04/30/2023 Assessment & Plan (04/30/2023 5:35 PM PLANER HAND): Present since least 2021. The elevated liver [...] 10/28/2022 Assessment & Plan (04/30/2023 5:32 PM PLANER HAND): Chronic calcification noted on prior imaging. Risk [...] symptoms Assessment & Plan (04/30/2023 5:32 PM PLANER HAND): Chronic but symptomatically improving. Working with Podiatry. [...] needed. Assessment & Plan (05/13/2023 11:09 AM PLANER HAND): Chronic problem. Clinically euthyroid at this time. Reviewed recent labs 02/21 & 02/27 that were vastly different. Will repeat TFTs today at [facility]. Verified that she uses mychart. Aware to check results/results letter in mychart. Will contact by phone if needed. Aware to take 1st thing in morning, 30-60 minutes before food/drink/other medications. Assessment & Plan (04/30/2023 5:31 PM PLANER HAND): Chronic. Follows with endocrinology. Continue thyroid medication per specialist Assessment & Plan (01/28/2023 11:38 AM PLANER HAND): Chronic problem. Improved on current levothyroxine 112mcg [...] 04/24/2022 Assessment & Plan (04/24/2022 8:51 AM PLANER HAND): -no myofascial pain noted on today's exam -continue performing PFPT exercises Vaginal atrophy 04/24/2022 Assessment & Plan (04/24/2022 8:51 AM PLANER HAND): -discussed decreasing VET to twice per week, [...] working Assessment & Plan (04/24/2022 8:55 AM PLANER HAND): -she is not using the the #1 [...] well Assessment & Plan (04/30/2023 5:31 PM PLANER HAND): Chronic. Struggles some with anxiety at times [...] legs Assessment & Plan (04/30/2023 5:31 PM PLANER HAND): Chronic. Continue medication care per pain management [...] report. Assessment & Plan (04/30/2023 5:33 PM PLANER HAND): Noted previously. These were not mentioned on [...] Stable Assessment & Plan (04/30/2023 5:31 PM PLANER HAND): Chronic. Continue medication and care per pain management Assessment & Plan (10/28/2022 7:11 PM CDT): Chronic. Continue medication and care per pain management Long-term current use of opiate analgesic 2021 Overview (04/08/2022): Sees pain management, Dr. Marvin Assessment & Plan (04/30/2023 5:33 PM PLANER HAND): Chronic. Medication care per pain management Osteopenia of multiple sites 02/12/2021 Assessment & Plan (07/13/2024 9:17 PM CDT): Stable, continue calcium supplementation and weight-bearing exercises to maintain bone density Depressive disorder 01/28/2021 Overview (04/08/2022): Seecharli psychVivi Assessment & Plan (04/30/2023 5:30 PM PLANER HAND): Chronic. Mood is stable. Continue medication care [...] monoplegia Assessment & Plan (04/30/2023 5:30 PM PLANER HAND): Chronic. Continue medication and care per painter apprentice Assessment & Plan (10/28/2022 7:11 PM CDT): Chronic. Continue medication and care per painter apprentice Primary localized osteoarthritis of pelvic regio n and thigh 01/28/2021 Tobacco dependence in remission 01/28/2021 Assessment & Plan (04/30/2023 5:33 PM PLANER HAND): Chronic. Patient will be due for updated [...] management Assessment & Plan (04/30/2023 5:27 PM PLANER HAND): Chronic. Can continue medication care for pain management. She is on gabapentin, duloxetine, hydrocodone, and ropinirole Assessment & Plan (10/28/2022 7:11 PM CDT): Chronic. Can continue medication care for pain management. She is on gabapentin, duloxetine, hydrocodone known and ropinirole Assessment & Plan (02/14/2020 4:43 PM PLANER HAND): Patient has 10 day history of low [...] that she continue with Dr. Carreno in [place] as she sees no need to have [...] 03/24/2017 Assessment & Plan (04/30/2023 5:31 PM PLANER HAND): Chronic. Symptomatically has improved. Monitor. Assessment & [...] doses Assessment & Plan (04/30/2023 5:30 PM PLANER HAND): Chronic. Follows with endocrinology. Continue medication and care per specialists Assessment & Plan (02/12/2021 12:34 PM PLANER HAND): With subclinical hyperthyroidism. Will recheck free T4 [...] adjustment Assessment & Plan (04/30/2023 5:27 PM PLANER HAND): Chronic. Breathing is relatively stable. Denies significant [...] continue Assessment & Plan (04/30/2023 5:30 PM PLANER HAND): Chronic. Patient has a degree of transaminitis [...] now. Assessment & Plan (04/30/2023 5:31 PM PLANER HAND): Chronic. Blood pressure is very tightly controlled [...] (04/05/2022): Added automatically from request for surgery [id number] Exposure of implanted vaginal mesh 11/20/2021 04/08/2022 Overview (11/20/2021): Added automatically from request for surgery [id number] Radiculopathy, lumbosacral region 05/09/2021 04/08/2022 Other obesity due to excess calories 05/09/2021 04/08/2022 Gastroesophageal reflux disease 01/28/2021 04/08/2022 Lymphadenopathy 01/28/2021 04/08/2022 Mild chronic obstructive pulmonary disease 01/28/2021 10/28/2022 Encounter to establish care 01/28/2021 04/08/2022 Assessment & Plan (01/28/2021 2:15 PM PLANER HAND): A visit to establish care has been performed today. Flor Gallego is not up to date on screening tests. She is in need of Mammogram, Lung cancer screen and hepatitis c screen- these have been ordered. She is up to date on needed preventative vaccinations. Cervical radiculopathy 01/28/202104/08 Assessment & Plan (01/28/2021 2:17 PM PLANER HAND): Her pain management was covered by her neurologist will need new pain doctor (her neurologist is leaving the area at the end of the month) Erythrocytosis 02/24/2020 04/08/2022 Pachyderma of larynx 06/26/2017 023 WILFRED (obstructive sleep apnea) 06/26/2017 04/08/2022 Hot thyroid nodule 02/20/2017 Assessment & Plan (03/28/2022 1:56 PM PLANER HAND): Chronic problem, not at goal. 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 She is having increasing trouble swallowing and [...] 06/04/2022 Assessment & Plan (02/12/2021 12:45 PM PLANER HAND): Risk of cardiac arrhythmias with discussed. The patient is following with cardiology Bone density also requested due to the risk of bone density loss in patient with subclinical hyperthyroidism Assessment & Plan (02/06/2017 4:43 PM PLANER HAND): Check TFT's Treat as indicated Assessment & Plan (01/09/2017 4:27 PM CDT): Long standing, related to MNG Repeat TFT's Recommendations to follow Most likely will watch without specific intervention. Multinodular goiter (nontoxic) 01/09/2017 09/26/2022 Assessment & Plan (02/12/2021 12:55 PM PLANER HAND): With FNA showing follicular lesion of unknown significance. With [facility] molecular testing, negative.less than 4 % change of malignancy. Will repeat thyroid ultrasound if not changes will continue monitoring Assessment & Plan (02/06/2017 4:42 PM PLANER HAND): Differential diagnosis would include benign nodule (macrofollicular [...] Description 07/26/2024 2:00 PM CDT Office Visit [facility] Diabetes and Endocrinology [address] [place] [phone] Mariam Shah NP Postoperative hypothyroidism (Primary Dx) 07/15/2024 Results Follow-Up [facility] [address] [place] [phone] Eddie Funez MD Estradiol, CBC with auto differential, Comprehensive metabolic panel, Additional followed-up results: 4 07/01/2024 4:00 PM CDT [facility] Visit [facility] [address] [phone] Eddie Funez MD Need for hepatitis B screening test (Primary Dx); Encounter to establish care with new doctor; Postoperative hypothyroidism; Encounter for screening mammogram for malignant neoplasm of breast; Lung nodules; Post-menopause; COPD, mild (HCC); Pure hypercholesterolemia; Primary fibromyalgia syndrome; Osteopenia of multiple sites 06/23/2024 9:35 AM CDT Office Visit [address] [place] [phone] Eyers, STACEY Godwin Grade III hemorrhoids from Last 3 Months Immunizations Immunization Administration Dates Next Due Influenza, Quadrivalent, Sadia l Culture-based MDCK, Preservative Free, Antibiotic Free, Intramuscular 05/01/2022 Influenza, Quadrivalent, Split, Intramuscular Influenza, Quadrivalent, Spl it, Preservative Free, Intramuscular 05/13/2023,01/24/2021 Papriika SARS-CoV-2 Monovalent Vaccination (12+ Yrs) PURPLE 09/09/2020,08/19/2020 [...] Osteoporosis COPD (chronic obstructive pu lmonary disease) ([facility]) Glaucoma Migraines Anxiety Cataract Just starting Cervical radiculopathy 01/28/2021 Exposure of implanted vaginal mesh 11/20/2021 Added automatically from request for surgery [id number] Chronic low back pain Restless leg Erythrocytosis 03/09/2020 secondary erythr ocytosis Jak2 - saw Heme Goiter 04/05/2022 Added automatica lly from request for surgery [id number] Coronary artery calcificatio n seen on CAT [...] Maternal Grandmother Pamella Jung Arthritis Mother Phoebe Allison [place] COPD Mother Phoebe Allison [place] Cancer [...] on file Legal Sex Female 7:24 PM PLANER HAND Gender Identity Female 02/08/2020 5:48 PM PLANER HAND Sexual Orientation Straight 02/08/2020 5: 48 PM PLANER HAND Obstetrics History Para Term AB IAB SAB [...] Completed 07/14/2024 Medical Devices Implanted Type Area Outreach Counselor Device Identifier Shelf Expiration Date Model / Serial / Lot Ethicon Endo Surgery Tvt Prolene 45x1.1cm Tape Mesh Transvaginal Blue [id number] - [id number] Implanted:Qty: 1 on 05/29/2022 by Aura Driscoll MD at [facility] Mesh N/A: Urethra Ethicon Endo Surgery [id number] 11/21/2024 [id number] / / [facility] [employer] Sls-Clip Ligate Triangular Wire Kathleen Groove Small Chevron Clip Latex Free [id number] - [id number] Implanted:Qty: 2 on 05/20/2022 by Sameer Alan MD at [facility] [employer] [id number] / / [facility] [employer] Sls-Clip Ligate Triangular Wire Kathleen Groove Small Chevron Clip Latex Free [id number] - [id number] Implanted:Qty: 2 on 05/20/20[facility] [id number] / / Procedures Procedure Name Priority Date/Time [...] ESTRADIOL Routine 07/14/2024 9:39 AM CDT Post-menopause MAMMOGRAPHY Routine 10/31/2023 2:52 PM CDT HEPATITIS [...] - 07/15/2024 12:07 AM CDT Performed at: [address] [place] [id number] Logistics Center Manager: Jack Winslow PhD, Phone: [phone] Eddie Funez MD LAB BLOOD ORDERABLES Armida l Result Performing Organization Address [facility] Co de Phone Number [facility] - * Hepatitis B core antibody, total Blood (07/14/2024 9:59 AM CDT) Hep B core IgG/IgM Negative Negative [facility] - 01 Blood 07/14/2024 9:59 AM CDT 07/14/2024 Narrative [facility] - 07/15/2024 5:07 AM CDT Performed at: [address] [place] [address] [id number] Logistics Center Manager: Jack Winslow PhD, Phone: [phone] Eddie Funez MD LAB MICROBIOLOGY - GENERA L ORDERABLES Final Result Performing Organization Address [facility] de Phone Number [facility] - * Hepatitis B surface antibody (immune status) Blood (07/14/2024 9:59 AM CDT) [facility] HBsAb (immune status) Non Reactive [facility] - 01 Comment: Non Reactive: Not immune to HBV infection. Equivocal: Unable to determine if anti-HBs is present at levels consistent with immunity. Reactive: Anti-HBs concentration detected at greater than 10 mIU/mL. Individual is considered to be immune to infection with HBV. Blood 07/14/2024 9:59 AM CDT 07/14/2024 Narrative [facility] - 07/15/2024 5:07 AM CDT Performed at: [address] [place] [address] [id number] Logistics Center Manager: Jack Winslow PhD, Phone: [phone] Eddie Funez MD LAB MICROBIOLOGY - GENERA L ORDERABLES Final Result Performing Organization Address [facility] de Phone Number [facility] - * Hepatitis B Surface Antigen Blood (07/14/2024 9:59 AM CDT) [facility]BsAg Negative Negative [facility] Blood 07/14/2024 9:59 AM CDT 07/14/2024 Narrative [facility] - 07/15/2024 5:07 AM CDT Performed at: [address] [place] [address] [id number] Logistics Center Manager: Jack Winslow PhD, Phone: [phone] Eddie Funez MD LAB MICROBIOLOGY - GENERA L ORDERABLES Final Result Performing Organization Address [facility] Co de Phone Number [facility] - 01 * Lipid panel (07/14/2024 9:59 AM CDT) [facility] Cholesterol 125 100 - 199 mg/dL [facility] - 01 Triglycerides 62 0 - 149 mg/dL [facility] - 01 HDL Cholesterol 65 >39 mg/dL [facility] - 01 VLDL 13 5 - 40 mg/dL [facility] - 01 LDL, calculated 47 0 - 99 mg/dL [facility] - 01 Blood 07/14/2024 9:59 AM CDT 07/14/2024 Narrative [facility] - 07/15/2024 2:07 AM CDT Performed at: [address] [place] [address], [place], [place] [id number] Logistics Center Manager: Jack Winslow PhD, Phone: [phone] Eddie Funez MD LAB BLOOD ORDERABLES Armida l Result [facility] - 01 * (ABNORMAL) Comprehensive metabolic panel (07/14/2024 9:59 AM CDT) [facility] Glucose 91 70 - 99 mg/dL [facility] [...] - 07/15/2024 1:07 AM CDT Performed at: [address] [place] [address] [id number] Logistics Center Manager: Jack Winslow PhD, Phone: [phone] Eddie Funez MD LAB BLOOD ORDERABLES Armida l Result Performing Organization Address [facility] Co de Phone Number [facility] - * Estradiol (07/14/2024 9:39 AM CDT) Estradiol <5.0 0.0 - 54.7 pg/mL [facility] - Comment: Adult Female Range Follicular phase 12.5 - 166.0 Ovulation phase 85.8 - 498.0 Luteal phase 43.8 - 211.0 Postmenopausal <6.0 - 54.7 1st trimester 215.0 - >4300.0 Kathi ECLIA methodology Blood 07/14/2024 9:39 AM CDT 07/14/2024 Narrative [facility] - 07/15/2024 4:07 AM CDT Performed at: [address] [id number] Logistics Center Manager: Jack Winslow PhD, Phone: [phone] Eddie Funez MD LAB BLOOD ORDERABLES Armida l Result Performing Organization Address [facility] Co de Phone Number [facility] - * MAMMOGRAPHY (10/31/2023 2:52 PM CDT) Mammography Normal Historical Provider HEALTH MAINTENANCE Final Result * HEPATITIS C SCREENING (04/06/2023) SCRIBED HCV ab nonreactive Comment:Patient had checked through GI. She showed me a copy of the results through her mobile lab [facility] Technologiess garcia Historical Provider HEALTH MAINTENANCE Final Result * Colonoscopy (09/18/2016) Anatomical Region Laterality Modality Other Narrative 09/18/2016 Polypectomy; repeat in 3 years us Historical Provider MD ENDOSCOPY PROCEDURES Armida l Result from Last 3 Months or Most Recently Relevant to Health Maintenance Insurance [employer] MEDICARE [facility]ANTAGE [facility] MEDICARE Address: [facility] [address] [place] [address] [employer] [facility] MEDICARE ADVANTAGE [facility] MEDICARE Address: [address] [address] [place] [address] [facility] MEDICARE ADV[facility]AGE [facility] MEDICARE Address: [address] [address] [place] [address] [employer] Advance Directives For more information, please contact: [phone] * Full Code (Latest Code Status on File) Date Activated Date Inactivated Comments 05/20/2022 3:24 PM 05/21/2022 2:16 PM * Full Code Date Activated Date Inactivated Comments 02/12/2022 11:40 AM 02/12/2022 6:05 PM Care Teams Glass Unloading Equipment Tender Relationship Specialty Start Date End Date Eddie Funez MD [address] [place] [address] PCP - General Family Medicine 07/01/24 Minerva Serna MD Consulting Physician Gastroenterology 01/28/21 Alfie Vegas MD Consulting Physician Hematology 01/28/21 Toni Cintron MD [address] [place] [address] Consulting Physician Obstetrics and Gynecology 01/28/21 Brendan Thomas DPM [address] [place] [address] Consulting Physician Foot and Ankle Surg 01/28/21 Vivi Wood CNM [address] [place], [place] [id number] Nurse Practitioner Psychiatry 04/08/22 Tahmina Marvin MD [address] [facility] [address] [place] [address] Referring Physician Pain Management 04/08/22 Cristofer Alicia MD [address] [facility] [address] [place] [id number] Referring Physician Neurosurgery 04/08/[address] [place] [address] [facility] [address] [place] [address] Consulting Physician Endocrinology Diabetes & Metabolism 04/08/22 Roberto Carlos Fregoso MD [address] [facility] [place] [address] Referring Physician Otolaryngology 04/08/22 García Siddiqui DO [address] [facility] [place] [address] Referring Physician Surgery 04/08/22 Ana Delarosa MD [address] [place] [address] Consulting Physician Sleep Medicine 04/08/22 [place] [address] [place] [address] Surgeon Orthopedic Surgery 04/08/22 [place] [address] [place] [address] Referring Physician Orthopedic Surgery 04/08/22 [place] [address] [facility] [address] [place] [address] Consulting Physician Cardiology 04/08/22
--- OUTSIDE RECORDS SUMMARY | 2024-08-11 17:22 | XMS_ITS | CONTINUITY OF CARE DOCUMENT ---
Author Name maryruchi maryruchi Address Unknown Organization [facility] Address [address] [place] [address] Phone [phone] Care Team Providers Care Hot Pond Operator Name Role Phone Mike AYALA, Rehana Unavailable [phone] Joe AYALA, Mary Unavailable Joe AYALA, [...] Elgin Mckeon MD Venous insufficiency active Fabiana Setrn NP Cardiology examination active Agapito Araiza ENCOUNTERS Date Type Provider Location Encounter Diag nosis - In-person encounter Office Visit Rehana Mckeon MD [facility] Cardiology examination - In-person encounter Office Visit Rehana Mckeon MD [facility] - In-person encounter Office Visit Rehana Mckeon MD [facility] - In-person encounter Office Visit Rehana Mckeon MD [facility] - In-person encounter Office Visit Elijah Giles MD [facility] Venous insufficiency - In-person encounter Office Visit Rehana Mckeon MD [facility] - In-person encounter Office Visit Rehana Mckeon MD [facility] - In-person encounter Office Visit Rehana Mckeon MD [facility] HTN ESSENTIAL--echo ef 60%, reoperative cardiovascular examinationHx of bariatric surgery in 2020 - In-person encounter Office Visit Rehana Mckeon MD [facility] - In-person encounter Office Visit Rehana Mckeon MD [facility] PALPITATIONSHYPERCHOLESTEROLEMIARENAL INSUFFICIENCY ECTOPIC KIDNEYCHEST PAIN, - In-person encounter Office Visit Rehana Mckeon MD [facility] TOBACCO ABUSE QUIT 12 YRS AGOCHEST [...] musaenenfeld pulse rate 79 /min Kavya Floresnfe [facility] weight E&M 149 [lb_av] Kavya Floresnfe [facility] height E&M 64 [in_i] Kavya Floresnfe [facility] blood pressure, cuff size regular [facility] blood pressure, diastolic 70 mm[Hg] [facility] blood pressure, systolic 104 mm[Hg] [facility] pulse rate 90 /min [facility] respiratory rate E&M 16 /min Shazia Linda iller oxygen saturation, oximetry 95 % [facility] Body Mass Index (Ratio) 23.51 kg/m2 [facility] weight in kilograms E&M 62.14 kg [facility] weight E&M 137 [lb_av] Shazia [place] height E&M 64 [in_i] [facility] height in centimeters E&M 162.[address] [facility] Body Mass Index (Ratio) 23.00 kg/m2 [...] blood pressure, diastolic 59 mm[Hg] Ca therine Lyons blood pressure, systolic 121 mm[Hg] Cat herine Lyons oxygen saturation, oximetry 96 % Sharon Kyle pulse rate 67 /min Sharon Kyle respiratory rate E&M 14 /min Catheri ne Lyons weight E&M 167 [lb_av] Sharon Lyons blood pressure, cuff size regular Ca therine Lyons height E&M 64 [in_i] Sharon Kyle Body Mass Index (Ratio) 37.59 kg/m2 Elgin Mckeon MD blood pressure, cuff size regular Pa ris Gurley blood pressure, diastolic 74 mm[Hg] Pa ris Gurley blood pressure, systolic 134 mm[Hg] Par is Phillip respiratory rate E&M 21 /min Rosa H trey pulse rate 77 /min Rosa Gurley oxygen saturation, oximetry 97 % Rosa Phillip [...] pressure, diastolic, left arm 79 mm [Hg] [facility] blood pressure, systolic, left arm 126 mm [Hg] Agustin [place] blood pressure, diastolic 79 mm[Hg] Audrey seph [place] blood pressure, systolic 126 mm[Hg] Asaf eph [place] pulse rate 76 /min [place] oxygen saturation, oximetry 96 % Agustin [place] respiratory rate E&M 16 /min [place] weight E&M 260 [lb_av] [facility] ALLERGIES Allergy Name Onset Date [...] Link[facility] 0-149 cholesterol, serum 158 mg/dL [facility] [phone]/12/ 29 basophil count, absolute 0.0 x10E3/uL [facility] [...] Not Estab. platelet count 151 X10E3/UL [facility] [phone]/12/ 29 red blood cell distribution width 12.3 [...] g/dL [facility] 6.0-8.5 calcium, serum 9.3 mg/dL [facility] 8[facility] carbon dioxide, venous blood 31 mmol/L [facility] 20[facility]29 High chloride, serum 102 mmol/L [facility] 96-106 potassium, serum 3.0 mmol/L [facility] 3.5-5.2 Low sodium, serum 147 mmol/L [facility] High urea nitrogen/creatinine ratio, serum 17 [facility] 12-28 creatinine, serum 0.60 mg/dL [facility] 0.57-1.00 urea nitrogen, blood 10 mg/dL [facility] 8-27 blood glucose, random 86 mg/dL [facility] 70-99 thyroid stimulating hormone, serum 2.500 u[IU]/mL [facility] Armando very low density lipoproteins 36 mg/dL [facility] triglyceride, serum, fasting 178 mg/dL [facility] [place] HDL cholesterol, serum 53 mg/dL [facility] LDL cholesterol, serum 104 mg/dL [facility] [place] cholesterol, serum 193 mg/dL [facility] globulins, serum, total 3.0 g/dL [facility] Estimated Glomerular Filtration Rate (calc) 58 mL/min/{1 .73_m2} [facility] albumin/globulin ratio, serum 1.3 [facility] protein, total, serum 6.9 g/dL [facility] albumin, serum 3.9 g/dL [facility] bilirubin, serum, total 0.3 mg/dL [facility] alkaline phosphatase, serum 109 1/L [facility] alanine aminotransferase (SGPT), serum 22 1/L [facility] aspartate aminotransferase (SGOT), serum 18 1/L [facility] calcium, serum 9.2 mg/dL [facility] blood glucose, fasting 84 mg/dL [facility] creatinine, serum 1.02 mg/dL [facility] urea nitrogen, blood 13 mg/dL [facility] carbon dioxide, serum, total 29 mmol/L [facility] chloride, serum 101 mmol/L [facility] potassium, serum 3.4 mmol/L [facility] sodium, serum 142 mmol/L [facility] HISTORY OF MEDICATION USE Medication Status Instructions Dates Provider Indications Com ments levothyroxine 112 mcg tablet active Agapito Dooleyzafilipe spironolactone 25 mg tablet active TAKE 1 TABLET BY MOUTH ONCE DAILY Agapito Dooleyzai losartan 50 mg tablet active TAKE 1 TABLET BY MOUTH ONCE DAILY Agapito Dooleyzai hydrocodone-acetam inophen 10-325 mg tablet active Es 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 losartan 50 mg tablet completed Take 1 tablet by mouth once a day TAKE 1 TABLET BY MOUTH EVERY DAY - Ramon spironolactone 25 mg tablet completed Take 1 tablet by mouth once a day - Sury Sethvaezequiel losartan 100 mg tablet completed TAKE 1 [...] drug use no Es Ventimig jesus manuel [facility] alcohol use no Es Ventimig jesus manuel [facility] physical exercise, frequency, days per week no [...] revi ewed - no changes required Agapito rAaiza social history E&M Marital Statu s: L [...] exercise, frequency, days per week no Rosa Gurley caffeine use, averag e drinks per day [...] or m ore LinkLog smoking status Quit [facility] MENTAL STATUS Date Observation Value Provider assessment of judgme nt and insight E&M Alert and oriented to time, place and person. Mood and affect are normal. Rehana Mckeon MD INSURANCE PROVIDERS Payer name Policy type / Coverage type [place] red alliance party ID AARP MCR ADVANTAGE PLAN 2 (HMO-POS) Medicare [id number] [facility] Medicaid 3 [id number] ADVANCE DIRECTIVES Name Date DISCUSSED - NO DECISION MADE TREATMENT PLAN Date Name Performer [id number],S, Rehana Mckeon MD [id number],S,c urrently asymptomatic. Her updated medication list for this problem includes: Losartan 50 Mg Tablet (Losartan) ..... Take 1 tablet by mouth once a day take 1 tablet by mouth every day Spironolactone 25 Mg Tablet (Spironolactone) ..... Take 1 tablet by mouth once a day Rehana Mckeon MD [id number],B,C ut Losartan from 100mg to 50mg daily Her updated medication list for this problem includes: Losartan 50 Mg Tablet (Losartan) ..... Take 1 tablet by mouth once a day take 1 tablet by mouth every day Spironolactone 25 Mg Tablet (Spironolactone) ..... Take 1 tablet by mouth once a day Rehana Mckeon MD [id number],C,remains tobac co free Es MATTP [id number],C,c urrently asymptomatic. H er updated medication list for this problem includes: Losartan 100 Mg Tablet (Losartan) ..... Take 1 tablet by mouth once a day take 1 tablet by mouth every day Spironolactone 25 Mg Tablet (Spironolactone) ..... Take 1 tablet by mouth once a day Es MATTP [id number],C,c ontrolled. Will continue present medication regimen H er updated medication list for this problem includes: Losartan 100 Mg Tablet (Losartan) ..... Take 1 tablet by mouth once a day take 1 tablet by mouth every day Spironolactone 25 Mg Tablet (Spironolactone) ..... Take 1 tablet by mouth once a day Es To [facility] [id number],C,S he continues to have pain left foot 3rd digit with bruising and pain with ambulation. Concern is that this is related musculoskeletal injury as no venous insufficiency noted on doppler and Sensilase with microvascular disease. Have recommended ortho eval and non-weight bearing. Es To [facility] [id number],C,D enies SOB H er updated medication list for this problem includes: Losartan 100 Mg Tablet (Losartan) ..... Take 1 tablet by mouth once a day take 1 tablet by mouth every day Spironolactone 25 Mg Tablet (Spironolactone) ..... Take 1 tablet by mouth once a day Fabiana Nalluri [id number],C,B P controleld well B P today: 122/72 [...] by mouth once a day Fabiana Nalluri CLINICAL TRIALS DATA COORDINATOR [id number],C, Fabiana Nalluri CLINICAL TRIALS DATA COORDINATOR [id number],C,C /o pain in left middle toe pain/cheange into purple color. She had MRI done whish shwed joint fusion. No evidence of osteomelitis or fracture. O rders: V enous Doppler Bilateral LE - Reflux (CPT-66896) Fabiana Leoneri CLINICAL TRIALS DATA COORDINATOR [id number],S, Agapito Ahmedza i [id number],S, Agapito Ahmedza i [id number],S, Agapito Ahmedza i [id number],S, Agapito Ahmedza i [id number],W, Agapito Ahmedza i [id number],S, Agapito Ahmedza i [id number],S, Agapito Ahmedza i [id number],S, Agapito Ahmedza i [id number],S, Agapito Ahmedza i [id number],S, Agapito Ahmedza i [id number],S, Agapito Ahmedza i [id number],B, Agapito Ahmedza i [id number],S, Agapito Ahmedza i [id number],B, Agapito Ahmedza i [id number],B, Agapito Ahmedza i [id number],S, Agapito Ahmedza i Cardiology Rehana Mckeon MD [...] day Rehana Mckeon MD Cardiology:remains tobacco free [facility] Cardiology:currently asymptomatic. H er updated medication list for this problem includes: Losartan 100 Mg Tablet (Losartan) ..... Take 1 tablet by mouth once a day take 1 tablet by mouth every day Spironolactone 25 Mg Tablet (Spironolactone) ..... Take 1 tablet by mouth once a day [facility] Cardiology:controlle d. Will continue present medication regimen H er updated medication list for this problem includes: Losartan 100 Mg Tablet (Losartan) ..... Take 1 tablet by mouth once a day take 1 tablet by mouth every day Spironolactone 25 Mg Tablet (Spironolactone) ..... Take 1 tablet by mouth once a day [facility] Cardiology:She alexia nues to have pain left foot 3rd digit with bruising and pain with ambulation. Concern is that this is related musculoskeletal injury as no venous insufficiency noted on doppler and Sensilase with microvascular disease. Have recommended ortho eval and non-weight bearing. Star Yousuf [facility] Cardiology:Denies SO B H er updated [...] by mouth once a day Fabiana Nalluri CLINICAL TRIALS DATA COORDINATOR Cardiology Fabiana Nalluri CLINICAL TRIALS DATA COORDINATOR Cardiology:C/o pain in left middle toe pain/cheange into purple color. She had MRI done whish shwed joint fusion. No evidence of osteomelitis or fracture. O rders: V enous Doppler Bilateral LE - Reflux (CPT-21809) Fabiana Nalluri CLINICAL TRIALS DATA COORDINATOR Telehealth Agapito Ahmedzai Telehealth Agapito Ahmedzai Telehealth [...]
--- OUTSIDE RECORDS SUMMARY | 2024-08-11 17:22 | XMS_ITS | Encounter Summary ---
Author Organization [facility] Address [address] [place] [address] Care Team Providers Care Gambreler Helper Name Role Phone Malathi Perez MD Primary Care Provider [phone] Encounter Details Date Type Department Care Team (Late st Contact Info) Description 04/03/2003 Outpatient Historical [facility] Marshal Gonsalves [place] [facility] [place] [address] Er, Authorized P NO ADDRESS ON FILE DERMATOPHYTOSIS OF NAIL (Primary Dx) Social History Tobacco Use Types Packs/Day Years Used Date Smoking Tobacco: Never Assessed Comments Unknown Sex and Gender Information Value Date Recorded Sex Assigned at Not on file 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
--- OUTSIDE RECORDS SUMMARY | 2024-08-11 17:22 | XMS_ITS | Encounter Summary ---
Author Organization [facility] Address [address] [place] [address] Care Team Providers Care Examining Chair Assembler Name Role Phone Malathi Perez MD Primary Care Provider [phone] Encounter Details Date Type Department Care Team (Late st Contact Info) Description 12/27/2002 Outpatient Historical [facility] Tai Mariano MD [address] [place] [address] Dr VARMA [address] [place] [id number] REFLUX ESOPHAGITIS (Primary Dx) Social History Tobacco Use Types Packs/Day Years Used Date Smoking Tobacco: Never Assessed Comments Unknown Sex and Gender Information Value Date Recorded Sex Assigned at Not on file 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
--- OUTSIDE RECORDS SUMMARY | 2024-08-11 17:22 | XMS_ITS | Referral Summary ---
Author Organization [facility] Address [address] [place] [address] Care Team Providers Care Construction And Maintenance Inspector Name Role Phone Kareem Minerva Phillips MD Unavailable Alfie Vegas MD Unavailable [phone] Toni Cintron MD Unavailable Brendan Thomas DPM Unavailable [phone] Vivi Wood CNM Unavailable Tahmina Marvin MD Unavailable Cristofer Alicia MD Unavailable Prashanth Lee MD Unavailable Roberto Carlos Fregoso MD Unavailable García Siddiqui DO Unavailable [phone] Ana Delarosa MD Unavailable [phone] Orion Sommer MD Unavailable Alban Hernandez MD Unavailable Rehana Mckeon MD Unavailable Eddie Funez MD Primary Care Provider [phone] Encounters Date Type Department Care Team Description 07/26/2024 2:00 PM CDT Office Visit [facility] Diabetes and Endocrinology [address] [place] [id number] Mariam Shah NP Postoperative hypothyroidism (Primary Dx) 07/15/2024 Results [facility]Up [facility] [address] [id number] Eddie Funez MD Estradiol, CBC with auto differential, Comprehensive metabolic panel, Additional followed-up results: 4 07/01/2024 4:00 PM CDT Office Visit [facility] [address] [address] Eddie Funez MD Need for hepatitis B screening test (Primary Dx); Encounter to establish care with new doctor; Postoperative hypothyroidism; Encounter for screening mammogram for malignant neoplasm of breast; Lung nodules; Post-menopause; COPD, mild (HCC); Pure hypercholesterolemia; Primary fibromyalgia syndrome; Osteopenia of multiple sites 06/23/2024 9:35 AM CDT Office Visit [address] [place] [phone] EyersCitlali NP Grade III hemorrhoids from Last 3 Months Allergies Active Allergy Reactions Criticality Noted Date Comments Adhesive Other (See comments) Low 05/16/2022 Tears skin Bacitracin Rash Medium 02/04/2024 Neomycin Sulfate Rash Medium 02/04/2024 Tpjckzwm-Ovygqyhkqf-Oxllkuxy n Itching,Rash Medium 06/07/2015 Polymyxin B Rash Medium 02/04/2024 Venom-Honey Bee Swelling Medium 10/31/2022 Medications albuterol 2.5 mg /3 mL (0.083 %) nebulizer solution Take 3 mL (2.5 mg total) by nebulization every 6 (six) hours as needed for wheezing Active gabapentin (NEURONTIN) 100 mg capsuleIndications :Neuropathic Pain Take 1 capsule (100 mg total) by mouth 2 (two) times a day 02/21/20 Active multivit-min/iron/ folic acid/K (BARIATRIC MULTIVITAMINS ORAL)Indications:s [...] the vagina 3 (three) times a week Tu and Th 12 g 05/30/19 23 029 [...] Nasal saline spray (Simply saline, Little Remedies, [place], [place]) 2 second sprays or 2 squeezes into [...] evaluation Assessment & Plan (04/30/2023 5:32 PM COMMUTATOR REPAIRER): Noted on more recent labs. Patient had some blood work through her specialists. I have encouraged her to get me a copy of these to review Transaminitis 04/30/2023 Assessment & Plan (04/30/2023 5:35 PM COMMUTATOR REPAIRER): Present since least 2021. The elevated liver [...] 10/28/2022 Assessment & Plan (04/30/2023 5:32 PM COMMUTATOR REPAIRER): Chronic calcification noted on prior imaging. Risk [...] symptoms Assessment & Plan (04/30/2023 5:32 PM COMMUTATOR REPAIRER): Chronic but symptomatically improving. Working with Podiatry. [...] mychart. Aware to check results/results letter in [facility] [employer]. Will contact by phone if needed. Assessment [...] mychart. Aware to check results/results letter in [facility]. Will contact by phone if needed. Assessment & Plan (05/13/2023 11:09 AM COMMUTATOR REPAIRER): Chronic problem. Clinically euthyroid at this time. Reviewed recent labs 02/21 & 02/27 that were vastly different. Will repeat TFTs today at [facility]. Verified that she uses mychart. Aware to check results/results letter in [facility] [facility]. Will contact by phone if needed. Aware to take 1st thing in morning, 30-60 minutes before food/drink/other medications. Assessment & Plan (04/30/2023 5:31 PM COMMUTATOR REPAIRER): Chronic. Follows with endocrinology. Continue thyroid medication per specialist Assessment & Plan (01/28/2023 11:38 AM COMMUTATOR REPAIRER): Chronic problem. Improved on current levothyroxine 112mcg [...] daily. TSH/T4 ordered. Verified that she uses [facility] [employer]. Aware to check results/results letter in [facility] [facility]. Will contact by phone if needed. Will send 90 day refill to [facility] once labs result Verified phone #/address if I need to call her. Pelvic floor dysfunction 04/24/2022 Assessment & Plan (04/24/2022 8:51 AM COMMUTATOR REPAIRER): -no myofascial pain noted on today's exam -continue performing PFPT exercises Vaginal atrophy 04/24/2022 Assessment & Plan (04/24/2022 8:51 AM COMMUTATOR REPAIRER): -discussed decreasing VET to twice per week, [...] working Assessment & Plan (04/24/2022 8:55 AM COMMUTATOR REPAIRER): -she is not using the the #1 [...] anxiety disorder) 04/08/2022 Overview (04/08/2022): Sees psych, Vivikristine Wood Assessment & Plan (10/30/2023 6:33 PM CDT): Chronic. Mood is somewhat stable. She is still on sertraline. Has been coming from her psychiatrist despite the fact she has not seen him in a couple of years. She is also on duloxetine for pain issues. Continue care per Psychiatry. We will continue to monitor as well Assessment & Plan (04/30/2023 5:31 PM COMMUTATOR REPAIRER): Chronic. Struggles some with anxiety at times [...] legs Assessment & Plan (04/30/2023 5:31 PM COMMUTATOR REPAIRER): Chronic. Continue medication care per pain management [...] report. Assessment & Plan (04/30/2023 5:33 PM COMMUTATOR REPAIRER): Noted previously. These were not mentioned on [...] Stable Assessment & Plan (04/30/2023 5:31 PM COMMUTATOR REPAIRER): Chronic. Continue medication and care per pain management Assessment & Plan (10/28/2022 7:11 PM CDT): Chronic. Continue medication and care per pain management Long-term current use of opiate analgesic 2021 Overview (04/08/2022): Dr. Yon Brown Assessment & Plan (04/30/2023 5:33 PM COMMUTATOR REPAIRER): Chronic. Medication care per pain management Osteopenia of multiple sites 02/12/2021 Assessment & Plan (07/13/2024 9:17 PM CDT): Stable, continue calcium supplementation and weight-bearing exercises to maintain bone density Depressive disorder 01/28/2021 Overview (04/08/2022): Sees psych, Vivi Israel Assessment & Plan (04/30/2023 5:30 PM COMMUTATOR REPAIRER): Chronic. Mood is stable. Continue medication care [...] monoplegia Assessment & Plan (04/30/2023 5:30 PM COMMUTATOR REPAIRER): Chronic. Continue medication and care per transportation equipment painter Assessment & Plan (10/28/2022 7:11 PM CDT): Chronic. Continue medication and care per transportation equipment painter Primary localized osteoarthritis of pelvic regio n and thigh 01/28/2021 Tobacco dependence in remission 01/28/2021 Assessment & Plan (04/30/2023 5:33 PM COMMUTATOR REPAIRER): Chronic. Patient will be due for updated [...] management Assessment & Plan (04/30/2023 5:27 PM COMMUTATOR REPAIRER): Chronic. Can continue medication care for pain management. She is on gabapentin, duloxetine, hydrocodone, and ropinirole Assessment & Plan (10/28/2022 7:11 PM CDT): Chronic. Can continue medication care for pain management. She is on gabapentin, duloxetine, hydrocodone known and ropinirole Assessment & Plan (02/14/2020 4:43 PM COMMUTATOR REPAIRER): Patient has 10 day history of low [...] that she continue with Dr. Carreno in [place] as she sees no need to have [...] 03/24/2017 Assessment & Plan (04/30/2023 5:31 PM COMMUTATOR REPAIRER): Chronic. Symptomatically has improved. Monitor. Assessment & [...] doses Assessment & Plan (04/30/2023 5:30 PM COMMUTATOR REPAIRER): Chronic. Follows with endocrinology. Continue medication and care per specialists Assessment & Plan (02/12/2021 12:34 PM COMMUTATOR REPAIRER): With subclinical hyperthyroidism. Will recheck free T4 [...] adjustment Assessment & Plan (04/30/2023 5:27 PM COMMUTATOR REPAIRER): Chronic. Breathing is relatively stable. Denies significant [...] continue Assessment & Plan (04/30/2023 5:30 PM COMMUTATOR REPAIRER): Chronic. Patient has a degree of transaminitis [...] now. Assessment & Plan (04/30/2023 5:31 PM COMMUTATOR REPAIRER): Chronic. Blood pressure is very tightly controlled [...] (04/05/2022): Added automatically from request for surgery [id number] Exposure of implanted vaginal mesh 11/20/2021 04/08/2022 Overview (11/20/2021): Added automatically from request for surgery [id number] Radiculopathy, lumbosacral region 05/09/2021 04/08/2022 Other obesity due to excess calories 05/09/2021 04/08/2022 Gastroesophageal reflux disease 01/28/2021 04/08/2022 Lymphadenopathy 01/28/2021 04/08/2022 Mild chronic obstructive pulmonary disease 01/28/2021 10/28/2022 Encounter to establish care 01/28/2021 04/08/2022 Assessment & Plan (01/28/2021 2:15 PM COMMUTATOR REPAIRER): A visit to establish care has been performed today. Flor Gallego is not up to date on screening tests. She is in need of Mammogram, Lung cancer screen and hepatitis c screen- these have been ordered. She is up to date on needed preventative vaccinations. Cervical radiculopathy 01/28/202104/08 Assessment & Plan (01/28/2021 2:17 PM COMMUTATOR REPAIRER): Her pain management was covered by her neurologist will need new pain doctor (her neurologist is leaving the area at the end of the month) Erythrocytosis 02/24/2020 04/08/2022 Pachyderma of larynx 06/26/2017 023 WILFRED (obstructive sleep apnea) 06/26/2017 04/08/2022 Hot thyroid nodule 02/20/2017 Assessment & Plan (03/28/2022 1:56 PM COMMUTATOR REPAIRER): Chronic problem, not at goal. 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 She is having increasing trouble swallowing and [...] 06/04/2022 Assessment & Plan (02/12/2021 12:45 PM COMMUTATOR REPAIRER): Risk of cardiac arrhythmias with discussed. The patient is following with cardiology Bone density also requested due to the risk of bone density loss in patient with subclinical hyperthyroidism Assessment & Plan (02/06/2017 4:43 PM COMMUTATOR REPAIRER): Check TFT's Treat as indicated Assessment & Plan (01/09/2017 4:27 PM CDT): Long standing, related to MNG Repeat TFT's Recommendations to follow Most likely will watch without specific intervention. Multinodular goiter (nontoxic) 01/09/2017 09/26/2022 Assessment & Plan (02/12/2021 12:55 PM COMMUTATOR REPAIRER): With FNA showing follicular lesion of unknown significance. With [facility] molecular testing, negative.less than 4 % change of malignancy. Will repeat thyroid ultrasound if not changes will continue monitoring Assessment & Plan (02/06/2017 4:42 PM COMMUTATOR REPAIRER): Differential diagnosis would include benign nodule (macrofollicular [...] Quadrivalent, Spl it, Preservative Free, Intramuscular 05/13/2023,01/24/2021 MENA SOCIAL SARS-CoV-2 Monovalent Vaccination (12+ Yrs) PURPLE 09/09/2020,08/19/2020 [...] on file Legal Sex Female 7:24 PM COMMUTATOR REPAIRER Gender Identity Female 02/08/2020 5:48 PM COMMUTATOR REPAIRER Sexual Orientation Straight 02/08/2020 5: 48 PM COMMUTATOR REPAIRER Last Filed Vital Signs Vital Sign Reading [...] on file Medical Devices Implanted Type Area Radiology Orderly Device Identifier Shelf Expiration Date Model / Serial / Lot Ethicon Endo Surgery Tvt Prolene 45x1.1cm Tape Mesh Transvaginal Blue [id number] - [id number] Implanted:Qty: 1 on 05/29/2022 by Aura Driscoll MD at [facility] Mesh N/A: Urethra Ethicon Endo Surgery [id number] 11/21/2024 [id number] / / [employer] Sls-Clip Ligate Triangular Wire Kathleen Groove Small Chevron Clip Latex Free [id number] - [id number] Implanted:Qty: 2 on 05/20/2022 by Sameer Alan MD at [facility] [employer] [id number] / / [facility] Inc Sls-Clip Ligate Triangular Wire Kathleen Groove Small Chevron Clip Latex Free F0890-0 - [id number] Implanted:Qty: 2 on 05/20/2022 by Sameer Alan MD at [facility] [id number] / / Procedures Procedure Name Priority Date/Time [...] - 07/15/2024 12:07 AM CDT Performed at: - [facility] [address] [id number] Net Sorter: Jack Winslow PhD, Phone: [phone] us Eddie Funez MD LAB BLOOD ORDERABLES Armida l Result [facility] - 01 * Hepatitis B core antibody, total Blood (07/14/2024 9:59 AM CDT) [facility] Hep B core IgG/IgM Negative Negative [facility] Blood 07/14/2024 9:59 AM CDT 07/14/2024 Narrative [facility] - 07/15/2024 5:07 AM CDT Performed at: [address] [place] [id number] Net Sorter: Jack Winslow PhD, Phone: [phone] Eddie Funez MD LAB MICROBIOLOGY - GENERA L ORDERABLES Final Result Performing Organization Address [facility] Co de Phone Number [facility] - * Hepatitis B surface antibody (immune status) Blood (07/14/2024 9:59 AM CDT) [facility] HBsAb (immune status) Non Reactive [place] [id number] Comment: Non Reactive: Not immune to HBV infection. Equivocal: Unable to determine if anti-HBs is present at levels consistent with immunity. Reactive: Anti-HBs concentration detected at greater than 10 mIU/mL. Individual is considered to be immune to infection with HBV. Blood 07/14/2024 9:59 AM CDT 07/14/2024 Narrative [facility] - 07/15/2024 5:07 AM CDT Performed at: [address] [place] [id number] Net Sorter: Jack Winslow PhD, Phone: [phone] Eddie Funez MD LAB MICROBIOLOGY - GENERA L ORDERABLES Final Result Performing Organization Address City/[facility]/ZIP Co de Phone Number [facility] * Hepatitis B Surface Antigen Blood (07/14/2024 9:59 AM CDT) [facility] HepBsAg Negative Negative [facility] - Blood 07/14/2024 9:59 AM CDT 07/14/2024 Narrative [facility] - 07/15/2024 5:07 AM CDT Performed at: 01 - [address] [id number] Net Sorter: Jack Winslow PhD, Phone: [phone] us Eddie Funez MD LAB MICROBIOLOGY - GENERA L ORDERABLES Final Result Performing Organization Address [facility] Co de Phone Number [facility] * Lipid panel (07/14/2024 9:59 AM CDT) [...] - 07/15/2024 2:07 AM CDT Performed at: [address] [id number] Net Sorter: Jack Winslow PhD, Phone: [phone] us Eddie Funez MD LAB BLOOD ORDERABLES Armida l Result Performing Organization Address [facility] Co de Phone Number [facility] * (ABNORMAL) Comprehensive metabolic panel (07/14/2024 9:59 [...] 32 IU/L [facility] - 01 Blood 07/14/2024 9:5 9 AM CDT 07/14/2024 Narrative [facility] - 07/15/2024 1:07 AM CDT Performed at: [address] [place] [id number] Net Sorter: Jack Winslow PhD, Phone: [phone] Eddie Funez MD LAB BLOOD ORDERABLES Armida l Result Performing Organization Address [facility] Co de Phone Number [facility] * Estradiol (07/14/2024 9:39 AM CDT) [facility] Estradiol <5.0 0.0 - 54.7 pg/mL [facility] - 01 Comment: Adult Female Range Follicular phase 12.5 - 166.0 Ovulation phase 85.8 - 498.0 Luteal phase 43.8 - 211.0 Postmenopausal <6.0 - 54.7 1st trimester 215.0 - >4300.0 Kathi ECLIA methodology Blood 07/14/2024 9:39 AM CDT 07/14/2024 Narrative [facility] - 07/15/2024 4:07 AM CDT Performed at: [address] [place] [id number] Net Sorter: Jack Winslow PhD, Phone: [phone] Eddie Funez MD LAB BLOOD ORDERABLES Armida l Result Performing Organization Address [facility]/ZIP Co de Phone Number [facility] - 01 * MAMMOGRAPHY (10/31/2023 2:52 PM CDT) Mammography Normal Historical Provider HEALTH MAINTENANCE Final Result * HEPATITIS C SCREENING (04/06/2023) SCRIBED HCV ab nonreactive Comment:Patient had checked through GI. She showed me a copy of the results through her [employer] garcia Historical Provider HEALTH MAINTENANCE Final Result * Colonoscopy (09/18/2016) Anatomical Region Laterality Modality Other Narrative 09/18/2016 Polypectomy; repeat in 3 years Historical Provider ENDOSCOPY PROCEDURES Armida l Result from Last 3 Months or Most Recently Relevant to Health Maintenance Insurance [facility] MEDIC[facility] Address: [address] [address] IDPA [facility] MEDICARE [facility] Address: [address] [address] [place] [address] [facility] MEDIC[facility] Address: [address] [address] [place] [address] IDPA Advance Directives For more information, please contact: [phone] * Full Code (Latest Code Status on File) Date Activated Date Inactivated Comments 05/20/2022 3:24 PM 05/21/2022 2:16 PM * Full Code Date Activated Date Inactivated Comments 02/12/2022 11:40 AM 02/12/2022 6:05 PM Care Teams Construction And Maintenance Inspector Relationship Specialty Start Date End Date Eddie Funez MD [address] [place] [address] PCP - General Family Medicine 07/01/24 Minerva Serna MD Consulting Physician Gastroenterology 01/28/21 Alfie Vegas MD Consulting Physician Hematology 01/28/21 Toni Cintron MD [address] [place] [address] Consulting Physician Obstetrics and Gynecology 01/28/21 Brendan Thomas DPM [address] [place] [address] Consulting Physician Foot and Ankle Surg 01/28/21 Vivi Wood CNM [address] [place], [place] [id number] Nurse Practitioner Psychiatry 04/08/22 Tahmina Marvin MD [address] [place] [address] Referring Physician Pain Management 04/08/22 Cristofer Alicia MD [address] [place] [address] Referring Physician Neurosurgery 04/08/22 [place] [address] [facility] [address] [place] [address] Consulting Physician Endocrinology Diabetes & Metabolism 04/08/22 Roberto Carlos Fregoso MD [address] [facility] [place] [address] Referring Physician Otolaryngology 04/08/22 García Siddiqui DO [address] [place] [address] Referring Physician Surgery 04/08/22 Ana Delarosa MD [address] [place], [place] [id number] Consulting Physician Sleep Medicine 04/08/22 [place] [address] [place] [address] Surgeon Orthopedic Surgery 04/08/22 [place] [address] [place] [address] Referring Physician Orthopedic Surgery 04/08/22 [place] [address] [facility] [address] [place] [address] Consulting Physician Cardiology 04/08/22
--- OUTSIDE RECORDS SUMMARY | 2024-08-11 17:22 | XMS_ITS | Encounter Summary ---
Author Organization [facility] Address [address] [place] [address] Care Team Providers Care Cash Shortage Investigator Name Role Phone Malathi Perez MD Primary Care Provider [phone] Encounter Details Date Type Department Care Team (Late st Contact Info) Description 04/27/2003 Outpatient Historical [facility]3] Primary Care - [address] [place] [address] Cody Rubio MD [address] [facility] [address] [place] [address] Social History Tobacco Use Types Packs/Day Years Used Date Smoking Tobacco: Never Assessed Comments Unknown Sex and Gender Information Value Date Recorded Sex Assigned at Not on file Legal Sex Female 5:18 AM GIFT SHOP CLERK Gender Identity Not on file Sexual Orientation Not on file documented as of this encounter Plan of Treatment Not on file documented as of this encounter Visit Diagnoses Not on filedocumented in this encounter Care Teams Cash Shortage Investigator Relationship Specialty Start Date End Date Malathi Perez MD PCP - General Family Practice 02/25/20 documented as of this encounter
--- OUTSIDE RECORDS SUMMARY | 2024-08-11 17:22 | XMS_ITS | Encounter Summary ---
Author Organization [facility] Address [address] [place] [address] Care Team Providers Care Line Server Name Role Phone Malathi Perez MD Primary Care Provider [phone] Encounter Details Date Type Department Care Team (Late st Contact Info) Description 11/21/2003 Outpatient Historical [facility] Primary Care - [address] [place] [address] Cody Rubio MD [address] [facility] [address] [place] [address] Social History Tobacco Use Types Packs/Day Years Used Date Smoking Tobacco: Never Assessed Comments Unknown Sex and Gender Information Value Date Recorded Sex Assigned at Not on file Legal Sex Female 5:18 AM ARTIFICIAL PEARL MAKER Gender Identity Not on file Sexual Orientation Not on file documented as of this encounter Plan of Treatment Not on file documented as of this encounter Visit Diagnoses Not on filedocumented in this encounter Care Teams Line Server Relationship Specialty Start Date End Date Malathi Perez MD PCP - General Family Practice 02/25/20 documented as of this encounter
--- OUTSIDE RECORDS SUMMARY | 2024-08-11 17:22 | XMS_ITS | Continuity of Care Document ---
Author Organization [facility] [place] Address [address] [facility] [address] [place] [address] Phone Care Team Providers Care Dietitian Teaching Name Role Phone Magda PT, MINGT, Joe [...] Diagnoses Date Provider Providers Copied on Encounter [facility] [address], [place], [place], [id number], tel:[phone] [place] No Information Dec- 2 Magda Diaz. . [facility] [facility], [place], [place], [id number], tel:[phone] [place] No Information Nov-2 2 Magda Diaz. . Referring Provider: Owen Meadows0 [facility] [address], [place], [address]. tel:[phone] [facility] [facility], [place], [place], [address], tel:[phone] [place] No Information Sep-1 2 Magda Diaz. . Referring Provider: Cristofer Alicia [address] [facility] [address], [place], [address]. tel:[phone] [facility] [address] [facility] [address], [place], [place], [address], [place] tel:[phone] [place] No Information Sep-1 - 2 [place], [place], [place]. Referring Provider: Jessica Meadows [facility] [address], [place], [address]. tel:[phone] [facility] [address] [facility], [place], [place], [id number], [place] tel:[phone] [place] No Information Sep-0 2 Modglin Ralph. . Referring Provider: Jessica Meadows [facility] [address], [place], [address]. tel:[phone] [facility] [facility], [place], [place], [address], [place] tel:[phone] [place] No Information Sep-0 2 Klahn Joe. . Referring Provider: Cristofer Alicia, Owen0 [facility] [address], [place], [address]. tel:[phone] [facility], [place], [place], [address], [place] tel:[phone] [place] No Information Sep-0 2 Klahn Joe. . Referring Provider: Cristofer Alicia Owen[address] [facility] [address], [place], [address]. tel:[phone] [facility], [place], [place], [address], [place] tel:[phone] [place] No Information 2 Klahn Joe. . Referring Provider: Cristofer Alicia Owen[address] [facility] [address], [place], [address]. tel:[phone] [facility] [facility], [place], [place], [address], [place] tel:[phone] [place] No Information 2 Klahn Joe. . Referring Provider: Cristofer Alicia Owen[address] [facility] [address], [place], [address]. tel:[phone] [facility], [place], [place], [address], [place] tel:[phone] [place] No Information 2 Klahn Joe. . Referring Provider: Cristofer Alicia Owen0 [facility] [address], [place], [address]. tel:[phone] [facility], [place], [place], [address], [place] tel:[phone] Jayshree No Information 9 Treaster Yaima. . [facility], [place], [place], [address], [place] tel:[phone] [place] No Information 9 Treaster Yaima. . [facility], [place], [place], [address], [place] tel:[phone] [place] No Information Karina Erwin. . [facility], [place], [place], [address], [place] tel:[phone] [place] No Information 9 Karina Erwin. . Family History Family Member Type Diagnosis Age At Onset No Information Payers Payer name Insurance type Covered constitution party ID Zak plascenciajune(s) Traction [facility] Medicare Solutions [id number] Social History Type Description Quantity Date Captured [...]
[2024-08-11 17:25] VITALS: BP 170/90; PULSE 77; RESP 16; TEMP 36.6; O2SAT 100
[2024-08-11 20:52] LABS: Basophils Percent Auto 0.3 % (0.2-1.2); Hematocrit 47.6 % (37.0-47.0); Hemoglobin 15.4 g/dL (12.0-15.0); Immature Granulocyte Absolute 0.02 K/mm3 (0.00-0.031); Immature Granulocyte Percent A 0.2 % (0-0.5); Lymphocytes Absolute Auto 0.45 K/mm3 (0.9-3.2); Lymphocytes Percent Auto 4.2 % (18.3-44.2); Mean Corpuscular HGB Conc 32.4 g/dl (32-36); Mean Corpuscular Hemoglobin 29.8 pg (26-34); Mean Corpuscular Volume 92.1 fl (80-100); Mean Platelet Volume 10.1 fl (7.4-10.4); Monocytes Absolute Auto 0.4 K/mm3 (0.1-0.6); Monocytes Percent Auto 4.1 % (2.6-8.5); Neutrophils Absolute Auto 9.7 K/mm3 (1.3-6.7); Neutrophils Percent Auto 91.2 % (45.5-73.1); Platelet Count Result 189 k/mm3 (150-375); Red Blood Count 5.17 M/mm3 (4.2-5.4); Red Cell Distribution Width 12.2 % (11.5-14.5); White Blood Count 10.6 K/mm3 (4.5-10.0)
[2024-08-11 21:02] LABS: Alanine Aminotransferase 53 U/L (6-35); Albumin Level 4.4 g/dL (3.5-5.1); Alkaline Phosphatase 159 U/L (38-126); Anion Gap 12 mmol/L (4-12); Aspartate Amino Transferase 45 U/L (14-36); Blood Urea Nitrogen 13 mg/dL (7-17); Calcium 9.1 mg/dL (8.4-10.2); Carbon Dioxide 24 mmol/L (22-30); Chloride 101 mmol/L (98-107); Estimated CRCL calculation 38 ml/min; Estimated Glomerular Filt Rate 46; Glucose 149 mg/dL (65-110); Lipase 52 U/L (23-300); Potassium 3.1 mmol/L (3.4-5.0); Sodium 137 mmol/L (137-145)
--- OUTSIDE RECORDS SUMMARY | 2024-08-11 21:09 | XMS_ITS | Clinical Summary ---
Author Organization [facility] Address [address] [place] [address] Care Team Providers Care Generation Engineering Technologist Name Role Phone Evon Sernatera Phillips MD Unavailable Alfie Vegas MD Unavailable [phone] Toni Cintron MD Unavailable [phone] Brendan Thomas DPM Unavailable [phone] Vivi Wood CNM Unavailable Tahmina Marvin MD Unavailable Cristofer Alicia MD Unavailable Prashanth Lee MD Unavailable Roberto Carlos Fregoso MD Unavailable García Siddiqui DO Unavailable Ana Delarosa MD Unavailable [phone] Orion Sommer MD Unavailable [phone] Alban Hernandez MD Unavailable Rehana Mckeon MD Unavailable Eddie Funez MD Primary Care Provider [phone] Allergies Active Allergy Reactions Criticality Noted Date Comments Adhesive Other (See comments) Low 05/16/2022 Tears skin Bacitracin Rash Medium 02/04/2024 Neomycin Sulfate Rash Medium 02/04/2024 Kcsxjfbt-Qgjrsyugjx-Ftojxrls n Itching,Rash Medium 06/07/2015 Polymyxin B Rash [...] Nasal saline spray (Simply saline, Little Remedies, Hopkins, Geary) 2 second sprays or 2 squeezes into [...] evaluation Assessment & Plan (04/30/2023 5:32 PM COMMUNITY RELATIONS OFFICER): Noted on more recent labs. Patient had some blood work through her specialists. I have encouraged her to get me a copy of these to review Transaminitis 04/30/2023 Assessment & Plan (04/30/2023 5:35 PM COMMUNITY RELATIONS OFFICER): Present since least 2021. The elevated liver [...] 10/28/2022 Assessment & Plan (04/30/2023 5:32 PM COMMUNITY RELATIONS OFFICER): Chronic calcification noted on prior imaging. Risk [...] symptoms Assessment & Plan (04/30/2023 5:32 PM COMMUNITY RELATIONS OFFICER): Chronic but symptomatically improving. Working with Podiatry. [...] needed. Assessment & Plan (05/13/2023 11:09 AM COMMUNITY RELATIONS OFFICER): Chronic problem. Clinically euthyroid at this time. Reviewed recent labs 02/21 & 02/27 that were vastly different. Will repeat TFTs today at [facility]. Verified that she uses mychart. Aware to check results/results letter in mychart. Will contact by phone if needed. Aware to take 1st thing in morning, 30-60 minutes before food/drink/other medications. Assessment & Plan (04/30/2023 5:31 PM COMMUNITY RELATIONS OFFICER): Chronic. Follows with endocrinology. Continue thyroid medication per specialist Assessment & Plan (01/28/2023 11:38 AM COMMUNITY RELATIONS OFFICER): Chronic problem. Improved on current levothyroxine 112mcg [...] 04/24/2022 Assessment & Plan (04/24/2022 8:51 AM COMMUNITY RELATIONS OFFICER): -no myofascial pain noted on today's exam -continue performing PFPT exercises Vaginal atrophy 04/24/2022 Assessment & Plan (04/24/2022 8:51 AM COMMUNITY RELATIONS OFFICER): -discussed decreasing VET to twice per week, [...] working Assessment & Plan (04/24/2022 8:55 AM COMMUNITY RELATIONS OFFICER): -she is not using the the #1 [...] well Assessment & Plan (04/30/2023 5:31 PM COMMUNITY RELATIONS OFFICER): Chronic. Struggles some with anxiety at times [...] legs Assessment & Plan (04/30/2023 5:31 PM COMMUNITY RELATIONS OFFICER): Chronic. Continue medication care per pain management [...] report. Assessment & Plan (04/30/2023 5:33 PM COMMUNITY RELATIONS OFFICER): Noted previously. These were not mentioned on [...] Stable Assessment & Plan (04/30/2023 5:31 PM COMMUNITY RELATIONS OFFICER): Chronic. Continue medication and care per pain management Assessment & Plan (10/28/2022 7:11 PM CDT): Chronic. Continue medication and care per pain management Long-term current use of opiate analgesic 2021 Overview (04/08/2022): Sees pain management, Dr. Marvin Assessment & Plan (04/30/2023 5:33 PM COMMUNITY RELATIONS OFFICER): Chronic. Medication care per pain management Osteopenia of multiple sites 02/12/2021 Assessment & Plan (07/13/2024 9:17 PM CDT): Stable, continue calcium supplementation and weight-bearing exercises to maintain bone density Depressive disorder 01/28/2021 Overview (04/08/2022): Seecharli psychVivi Assessment & Plan (04/30/2023 5:30 PM COMMUNITY RELATIONS OFFICER): Chronic. Mood is stable. Continue medication care [...] monoplegia Assessment & Plan (04/30/2023 5:30 PM COMMUNITY RELATIONS OFFICER): Chronic. Continue medication and care per structural steel painter Assessment & Plan (10/28/2022 7:11 PM CDT): Chronic. Continue medication and care per structural steel painter Primary localized osteoarthritis of pelvic regio n and thigh 01/28/2021 Tobacco dependence in remission 01/28/2021 Assessment & Plan (04/30/2023 5:33 PM COMMUNITY RELATIONS OFFICER): Chronic. Patient will be due for updated [...] management Assessment & Plan (04/30/2023 5:27 PM COMMUNITY RELATIONS OFFICER): Chronic. Can continue medication care for pain management. She is on gabapentin, duloxetine, hydrocodone, and ropinirole Assessment & Plan (10/28/2022 7:11 PM CDT): Chronic. Can continue medication care for pain management. She is on gabapentin, duloxetine, hydrocodone known and ropinirole Assessment & Plan (02/14/2020 4:43 PM COMMUNITY RELATIONS OFFICER): Patient has 10 day history of low [...] that she continue with Dr. Carreno in [facility] as she sees no need to have [...] 03/24/2017 Assessment & Plan (04/30/2023 5:31 PM COMMUNITY RELATIONS OFFICER): Chronic. Symptomatically has improved. Monitor. Assessment & [...] doses Assessment & Plan (04/30/2023 5:30 PM COMMUNITY RELATIONS OFFICER): Chronic. Follows with endocrinology. Continue medication and care per specialists Assessment & Plan (02/12/2021 12:34 PM COMMUNITY RELATIONS OFFICER): With subclinical hyperthyroidism. Will recheck free T4 [...] adjustment Assessment & Plan (04/30/2023 5:27 PM COMMUNITY RELATIONS OFFICER): Chronic. Breathing is relatively stable. Denies significant [...] continue Assessment & Plan (04/30/2023 5:30 PM COMMUNITY RELATIONS OFFICER): Chronic. Patient has a degree of transaminitis [...] now. Assessment & Plan (04/30/2023 5:31 PM COMMUNITY RELATIONS OFFICER): Chronic. Blood pressure is very tightly controlled [...] (04/05/2022): Added automatically from request for surgery [id number] Exposure of implanted vaginal mesh 11/20/2021 04/08/2022 Overview (11/20/2021): Added automatically from request for surgery [id number] Radiculopathy, lumbosacral region 05/09/2021 04/08/2022 Other obesity due to excess calories 05/09/2021 04/08/2022 Gastroesophageal reflux disease 01/28/2021 04/08/2022 Lymphadenopathy 01/28/2021 04/08/2022 Mild chronic obstructive pulmonary disease 01/28/2021 10/28/2022 Encounter to establish care 01/28/2021 04/08/2022 Assessment & Plan (01/28/2021 2:15 PM COMMUNITY RELATIONS OFFICER): A visit to establish care has been performed today. Flor Gallego is not up to date on screening tests. She is in need of Mammogram, Lung cancer screen and hepatitis c screen- these have been ordered. She is up to date on needed preventative vaccinations. Cervical radiculopathy 01/28/202104/08 Assessment & Plan (01/28/2021 2:17 PM COMMUNITY RELATIONS OFFICER): Her pain management was covered by her neurologist will need new pain doctor (her neurologist is leaving the area at the end of the month) Erythrocytosis 02/24/2020 04/08/2022 Pachyderma of larynx 06/26/2017 023 WILFRED (obstructive sleep apnea) 06/26/2017 04/08/2022 Hot thyroid nodule 02/20/2017 Assessment & Plan (03/28/2022 1:56 PM COMMUNITY RELATIONS OFFICER): Chronic problem, not at goal. She has h/o toxic MNG, with both hot and possible cold nodule on I-123 scan, low risk (per [facility]) FNA x 2 in [id number]. She is having increasing trouble swallowing and [...] 06/04/2022 Assessment & Plan (02/12/2021 12:45 PM COMMUNITY RELATIONS OFFICER): Risk of cardiac arrhythmias with discussed. The patient is following with cardiology Bone density also requested due to the risk of bone density loss in patient with subclinical hyperthyroidism Assessment & Plan (02/06/2017 4:43 PM COMMUNITY RELATIONS OFFICER): Check TFT's Treat as indicated Assessment & Plan (01/09/2017 4:27 PM CDT): Long standing, related to MNG Repeat TFT's Recommendations to follow Most likely will watch without specific intervention. Multinodular goiter (nontoxic) 01/09/2017 09/26/2022 Assessment & Plan (02/12/2021 12:55 PM COMMUNITY RELATIONS OFFICER): With FNA showing follicular lesion of unknown significance. With [facility] molecular testing, negative.less than 4 % change of malignancy. Will repeat thyroid ultrasound if not changes will continue monitoring Assessment & Plan (02/06/2017 4:42 PM COMMUNITY RELATIONS OFFICER): Differential diagnosis would include benign nodule (macrofollicular or adenomatoid/hyperplastic nodules, colloid adenomas, nodular goiter, and Eta's thyroiditis) vs thyroid carcinoma ( follicular , [...] Description 07/26/2024 2:00 PM CDT Office Visit [facility] Diabetes and Endocrinology [address] [place] [phone] Mariam Shah NP Postoperative hypothyroidism (Primary Dx) 07/15/2024 Results Follow-Up [facility] [address] [place] [phone] Eddie Funez MD Estradiol, CBC with auto differential, Comprehensive metabolic panel, Additional followed-up results: 4 07/01/2024 4:00 PM CDT [facility] [address] [phone] Eddie Funez MD Need for hepatitis B screening test (Primary Dx); Encounter to establish care with new doctor; Postoperative hypothyroidism; Encounter for screening mammogram for malignant neoplasm of breast; Lung nodules; Post-menopause; COPD, mild (HCC); Pure hypercholesterolemia; Primary fibromyalgia syndrome; Osteopenia of multiple sites 06/23/2024 9:35 AM CDT Office Visit [address] [place] [phone] Eyers, STACEY Godwin Grade III hemorrhoids from Last 3 Months Immunizations Immunization Administration Dates Next Due Influenza, Quadrivalent, Sadia l Culture-based MDCK, Preservative Free, Antibiotic Free, Intramuscular 05/01/2022 Influenza, Quadrivalent, Split, Intramuscular Influenza, Quadrivalent, Spl it, Preservative Free, Intramuscular 05/13/2023,01/24/2021 Teepix SARS-CoV-2 Monovalent Vaccination (12+ Yrs) PURPLE 09/09/2020,08/19/2020 [...] Osteoporosis COPD (chronic obstructive pu lmonary disease) ([facility]) Glaucoma Migraines Anxiety Cataract Just starting Cervical radiculopathy 01/28/2021 Exposure of implanted vaginal mesh 11/20/2021 Added automatically from request for surgery [id number] Chronic low back pain Restless leg Erythrocytosis 03/09/2020 secondary erythr ocytosis Jak2 - saw Heme Goiter 04/05/2022 Added automatica lly from request for surgery [id number] Coronary artery calcificatio n seen on CAT [...] on file Legal Sex Female 7:24 PM COMMUNITY RELATIONS OFFICER Gender Identity Female 02/08/2020 5:48 PM COMMUNITY RELATIONS OFFICER Sexual Orientation Straight 02/08/2020 5: 48 PM COMMUNITY RELATIONS OFFICER Obstetrics History Para Term AB IAB SAB [...] Completed 07/14/2024 Medical Devices Implanted Type Area Fence Setter Device Identifier Shelf Expiration Date Model / Serial / Lot Ethicon Endo Surgery Tvt Prolene 45x1.1cm Tape Mesh Transvaginal Blue [id number] - [id number] Implanted:Qty: 1 on 05/29/2022 by Aura Driscoll MD at [facility] Mesh N/A: Urethra Ethicon Endo Surgery [id number] 11/21/2024 [id number] / / [facility] [employer] Sls-Clip Ligate Triangular Wire Kathleen Groove Small Chevron Clip Latex Free [id number] - [id number] Implanted:Qty: 2 on 05/20/2022 by Sameer Alan MD at [facility] [employer] [id number] / / [employer] [facility] [employer] Sls-Clip Ligate Triangular Wire Kathleen Groove Small Chevron Clip Latex Free [id number] - [id number] Implanted:Qty: 2 on 05/20/2022 by Sameer Alan MD at [facility] [id number] / / Procedures Procedure Name Priority Date/Time [...] - 07/15/2024 12:07 AM CDT Performed at: [address] [place] [id number] Arboriculture Instructor: Jack Winslow PhD, Phone: [phone] Eddie Funez MD LAB BLOOD ORDERABLES Armida l Result Performing Organization Address [facility] Co de Phone Number [facility] - * Hepatitis B core antibody, total Blood (07/14/2024 9:59 AM CDT) Hep B core IgG/IgM Negative Negative [facility] - 01 Blood 07/14/2024 9:59 AM CDT 07/14/2024 Narrative [facility] - 07/15/2024 5:07 AM CDT Performed at: [address] [place] [id number] Arboriculture Instructor: Jack Winslow PhD, Phone: [phone] Eddie Funez MD LAB MICROBIOLOGY - GENERA L ORDERABLES Final Result Performing Organization Address [facility] de Phone Number [facility] - * Hepatitis B surface antibody (immune status) Blood (07/14/2024 9:59 AM CDT) [facility] HBsAb (immune status) Non Reactive [facility] [...] 07/15/2024 5:07 AM CDT Performed at: [address] [place] [id number] Arboriculture Instructor: Jack Winslow PhD, Phone: [phone] Eddie Funez MD LAB MICROBIOLOGY - GENERA L ORDERABLES Final Result Performing Organization Address [facility] de Phone Number [facility] - * Hepatitis B Surface Antigen Blood (07/14/2024 9:59 AM CDT) [facility]BsAg Negative Negative [facility] Blood 07/14/2024 9:59 AM CDT 07/14/2024 Narrative [facility] - 07/15/2024 5:07 AM CDT Performed at: [address] [place] [id number] Arboriculture Instructor: Jack Winslow PhD, Phone: [phone] Eddie Funez MD LAB MICROBIOLOGY - GENERA L ORDERABLES Final Result Performing Organization Address [facility] Co de Phone Number [facility] - 01 * Lipid panel (07/14/2024 9:59 AM CDT) [facility] Cholesterol 125 100 - 199 mg/dL [facility] - 01 Triglycerides 62 0 - 149 mg/dL [facility] - 01 HDL Cholesterol 65 >39 mg/dL [facility] - 01 VLDL 13 5 - 40 mg/dL [facility] - 01 LDL, calculated 47 0 - 99 mg/dL [facility] - 01 Blood 07/14/2024 9:59 AM CDT 07/14/2024 Narrative [facility] - 07/15/2024 2:07 AM CDT Performed at: [address] [place] [address], [place], [place] [id number] Arboriculture Instructor: Jack Winslow PhD, Phone: [phone] us Eddie Funez MD LAB BLOOD ORDERABLES Armida l Result [facility] - 01 * (ABNORMAL) Comprehensive metabolic panel (07/14/2024 9:59 AM CDT) [facility] Glucose 91 70 - 99 mg/dL [...] - 07/15/2024 1:07 AM CDT Performed at: [address] [place] [id number] Arboriculture Instructor: Jack Winslow PhD, Phone: [phone] Eddie Funez MD LAB BLOOD ORDERABLES Armida l Result Performing Organization Address [facility] Co de Phone Number [facility] - * Estradiol (07/14/2024 9:39 AM CDT) Estradiol <5.0 0.0 - 54.7 pg/mL [facility] - Comment: Adult Female Range Follicular phase 12.5 - 166.0 Ovulation phase 85.8 - 498.0 Luteal phase 43.8 - 211.0 Postmenopausal <6.0 - 54.7 1st trimester 215.0 - >4300.0 Kathi ECLIA methodology Blood 07/14/2024 9:39 AM CDT 07/14/2024 Narrative [facility] - 07/15/2024 4:07 AM CDT Performed at: [address] [id number] Arboriculture Instructor: Jack Winslow PhD, Phone: [phone] Eddie Funez MD LAB BLOOD ORDERABLES Armida l Result Performing Organization Address [facility] Co de Phone Number [facility] - * MAMMOGRAPHY (10/31/2023 2:52 PM CDT) Mammography Normal Historical Provider HEALTH MAINTENANCE Final Result * HEPATITIS C SCREENING (04/06/2023) SCRIBED HCV ab nonreactive Comment:Patient had checked through GI. She showed me a copy of the results through her mobile lab [employer] Historical Provider HEALTH MAINTENANCE Final Result * Colonoscopy (09/18/2016) Anatomical Region Laterality Modality Other Narrative 09/18/2016 Polypectomy; repeat in 3 years us Historical Provider MD ENDOSCOPY PROCEDURES Armida l Result from Last 3 Months or Most Recently Relevant to Health Maintenance Insurance UHC MEDICARE [facility] Address: [facility] [address] [place] [address] [employer] MEDICARE [facility] Address: [address] [address] [place] [address] [facility] MEDIC[facility] Address: [address] [address] [place] [address] [place] [address] Advance Directives For more information, please contact: [phone] * Full Code (Latest Code Status on File) Date Activated Date Inactivated Comments 05/20/2022 3:24 PM 05/21/2022 2:16 PM * Full Code Date Activated Date Inactivated Comments 02/12/2022 11:40 AM 02/12/2022 6:05 PM Care Teams Generation Engineering Technologist Relationship Specialty Start Date End Date Eddie Funez MD [address] [place] [address] PCP - General Family Medicine 07/01/24 Minerva Serna MD Consulting Physician Gastroenterology 01/28/21 Alfie Vegas MD Consulting Physician Hematology 01/28/21 Toni Cintron MD [address] [place] [address] Consulting Physician Obstetrics and Gynecology 01/28/21 Brendan Thomas DPM [address] [place] [address] Consulting Physician Foot and Ankle Surg 01/28/21 Vivi Wood CNM [address] [place], [place] [id number] Nurse Practitioner Psychiatry 04/08/22 Tahmina Marvin MD [address] [facility] [address] [place] [address] Referring Physician Pain Management 04/08/22 Cristofer Alicia MD [address] [facility] [address] [place] [address] Referring Physician Neurosurgery 04/08/22 [place] [address] [facility] [address] [place] [address] Consulting Physician Endocrinology Diabetes & Metabolism 04/08/22 Roberto Carlos Fregoso MD [address] [facility] [address] Referring Physician Otolaryngology 04/08/22 García Siddiqui DO [address] [facility] [address] Referring Physician Surgery 04/08/22 Ana Delarosa MD [address] [place] [address] Consulting Physician Sleep Medicine 04/08/22 [place] [address] [place] [address] Surgeon Orthopedic Surgery 04/08/22 [place] [address] [place] [address] Referring Physician Orthopedic Surgery 04/08/22 [place] [address] [facility] [address] [place] [address] Consulting Physician Cardiology 04/08/22
--- OUTSIDE RECORDS SUMMARY | 2024-08-11 21:09 | XMS_ITS | Clinical Summary ---
Author Organization [facility] Kathrine Mcintosh Address [address] [place] [address] Care Team Providers Care Early Intervention School Psychologist Name Role Phone Malathi Perez MD Primary Care Provider [phone] Allergies No known active allergies Medications MELATONIN [...] 20 Active fluticasone propionate (FLONASE) 50 mcg/spray [place], Suspension nasal inhaler Administer 1 [place] in each nostril. Active gabapentin (NEURONTIN) 100 [...] on file Legal Sex Female 5:18 AM MULTIFOCAL BUTTON INSPECTOR Gender Identity Not on file Sexual [...] Td or Tdap) 01/10/2030 Insurance Care Teams Early Intervention School Psychologist Relationship Specialty Start Date End Date Malathi Perez MD PCP - General Family Practice 02/25/20
--- OUTSIDE RECORDS SUMMARY | 2024-08-11 21:09 | XMS_ITS | Encounter Summary ---
Author Organization [facility] Address [address] [place] [address] Care Team Providers Care Ultrasonic Welding Machine Operator Name Role Phone Malathi Perez MD Primary Care Provider [phone] Encounter Details Date Type Department Care Team (Late st Contact Info) Description 12/27/2002 Outpatient Historical [facility] Tai Mariano MD [address] [place] [address] Dr VARMA [address] [place] [id number] REFLUX ESOPHAGITIS (Primary Dx) Social History Tobacco Use Types Packs/Day Years Used Date Smoking Tobacco: Never Assessed Comments Unknown Sex and Gender Information Value Date Recorded Sex Assigned at Not on file Legal Sex Female 5:18 AM YOUTH ACCOMMODATION SUPPORT WORKER Gender Identity Not on file Sexual Orientation Not on file documented as of this encounter Plan of Treatment Not on file documented as of this encounter Visit Diagnoses Diagnosis Reflux esophagitis- Primary documented in this encounter Care Teams Ultrasonic Welding Machine Operator Relationship Specialty Start Date End Date Malathi Perez MD PCP - General Family Practice 02/25/20 documented as of this encounter
--- OUTSIDE RECORDS SUMMARY | 2024-08-11 21:09 | XMS_ITS | Continuity of Care Document ---
Author Organization [facility] Address [address] [address] [place] [address] Phone Care Team Providers Care Director Trial Name Role Phone Zay Peraza DPM Unavailable [...] Providers Copied on Encounter [facility], [address] [facility] [address] [place] [address], On license of [facility], tel:[phone] [facility] S/P foot surgery [address] [place], [place], [place], [id number] , . tel:[phone] Referring Provider: Eddie Gutiérrez, [address] [place] [address], [address] . tel:[phone] [facility], [address] [facility] [address] [place] [address], [address], tel:[phone] [facility] S/P foot surgery [address] [place], [place], [place], [id number] , . [phone] Referring Provider: Eddie Gutiérrez, [address] [place] [address], [address] . tel:[phone] [facility], [address], [address], tel:[phone] [facility] S/P foot surgeryAtrophic disorder of skin, unspecified May-2 8 [address] [place] [address], [place], [place], [id number] , [place]. tel: [phone] Referring Provider: Eddie Gutiérrez, [address] [facility], [place], [address] . tel:[phone] [facility], [address] [facility] [address], [place], [address], tel:[phone] [facility] S/P foot surgery May-1 5 [place], [place], [place], [id number] , [place]. tel:[phone] Referring Provider: Eddie Gutiérrez, [address] [place] [address], [place], [address] . tel:[phone] [facility], [address] [facility] [address] [facility] [address], [place], [place], On license of [facility], [place] tel:[phone] [facility] Fat pad atrophy of footMorton's neuroma of left footExostosis of left foot May-0 5 [place], [place], [place], [id number] , [place]. tel:[phone] OFFICE/OUTPA TIENT VISIT EST [facility], [address] [facility] [address] [facility] [address], [place], [address], [place] tel:[phone] [facility] Injury of plantar plate of left foot, initial encounterFat pad atrophy of footMetatarsalgi a, left footBone spur of left footMorton's neuroma of left foot Apr- [address] [place]. [address] [facility] [address], [place], [place], [id number] , [place]. tel:[phone] Referring Provider: Eddie Gutiérrez, [address] [facility], [place], [address] . tel:[phone] [facility], [address], [place], [address], [place] tel:[phone] [facility] Fat pad atrophy of footMetatarsalgi a, left foot [address] [place], [place], [place], [id number] , [place]. tel:[phone] OFFICE/OUTPA TIENT VISIT EST [facility], [address], [place], [address], [place] tel:[phone] [facility] Injury of plantar plate of left foot, initial encounterFat pad atrophy of footMetatarsalgi a, left foot Feb- 4 [place], [place], [place], [id number] , [place]. [phone] Referring Provider: Eddie Gutiérrez, [address] [place] [address], [address] . tel:[phone] OFFICE/OUTPA TIENT VISIT NEW [facility], [address], [place], [address], [place] tel:[phone] [facility] [place] Metatarsalgia, left footFat pad atrophy of footInjury of plantar plate of left foot, initial encounter [address] [place], [place], [place], [id number] , [place]. [phone] Referring Provider: Eddie Gutiérrez, [address] [place] [address], [address] . tel:[phone] Family History Family Member Type Diagnosis Age At Onset No Information Payers Payer name Insurance type Covered constitution party ID Zak [id number](s) [facility] Medicare Advantage HMO/POS [id number] Social History Type Description Quantity Date [...]
--- OUTSIDE RECORDS SUMMARY | 2024-08-11 21:09 | XMS_ITS | Encounter Summary ---
Author Organization [facility] Address [address] [place] [address] Care Team Providers Care Blower Blast Furnace Name Role Phone Malathi Perez MD Primary Care Provider [phone] Encounter Details Date Type Department Care Team (Late st Contact Info) Description 11/25/2002 Outpatient Historical [facility] Primary [facility] - [address] [place] [address] Cody Rubio MD [address] [facility] [address] [place] [address] Social History Tobacco Use Types Packs/Day Years Used Date Smoking Tobacco: Never Assessed Comments Unknown Sex and Gender Information Value Date Recorded Sex Assigned at Not on file Legal Sex Female 5:18 AM PROJECT MANAGEMENT Gender Identity Not on file Sexual Orientation Not on file documented as of this encounter Plan of Treatment Not on file documented as of this encounter Visit Diagnoses Not on filedocumented in this encounter Care Teams Blower Blast Furnace Relationship Specialty Start Date End Date Malathi Perez MD PCP - General Family Practice 02/25/20 documented as of this encounter
--- OUTSIDE RECORDS SUMMARY | 2024-08-11 21:09 | XMS_ITS | Referral Summary ---
Author Organization [facility] Address [address] [place] [address] Care Team Providers Care Corrections Nurse Name Role Phone Kareem Minerva Phillips MD Unavailable Alfie Vegas MD Unavailable [phone] Toni Cintron MD Unavailable Brendan Thomas DPM Unavailable [phone] Vivi Wood CNM Unavailable Tahmina Marvin MD Unavailable Cristofer Alicia MD Unavailable Prashanth Lee MD Unavailable Roberto Carlos Fregoso MD Unavailable García Siddiqui DO Unavailable Ana Delarosa MD Unavailable [phone] Orion Sommer MD Unavailable Alban Hernandez MD Unavailable Rehana Mckeon MD Unavailable Eddie Funez MD Primary Care Provider [phone] Encounters Date Type Department Care Team Description 07/26/2024 2:00 PM CDT Office Visit [facility] Diabetes and Endocrinology [address] [place] [phone] Mariam Shah NP Postoperative hypothyroidism (Primary Dx) 07/15/2024 Results Follow-Up [facility] [address] [phone] Eddie Funez MD Estradiol, CBC with auto differential, Comprehensive metabolic panel, Additional followed-up results: 4 07/01/2024 4:00 PM CDT Office Visit [facility] [address] [address] Eddie Funez MD Need for hepatitis B screening test (Primary Dx); Encounter to establish care with new doctor; Postoperative hypothyroidism; Encounter for screening mammogram for malignant neoplasm of breast; Lung nodules; Post-menopause; COPD, mild (HCC); Pure hypercholesterolemia; Primary fibromyalgia syndrome; Osteopenia of multiple sites 06/23/2024 9:35 AM CDT Office Visit [address] [place] [phone] EyersCitlali NP Grade III hemorrhoids from Last 3 Months Allergies Active Allergy Reactions Criticality Noted Date Comments Adhesive Other (See comments) Low 05/16/2022 Tears skin Bacitracin Rash Medium 02/04/2024 Neomycin Sulfate Rash Medium 02/04/2024 Rsaqvfae-Nkzhifaqdf-Uapykznq n Itching,Rash Medium 06/07/2015 Polymyxin B Rash [...] Nasal saline spray (Simply saline, Little Remedies, [place], [place]) 2 second sprays or 2 squeezes into [...] evaluation Assessment & Plan (04/30/2023 5:32 PM MEDICAL CODER): Noted on more recent labs. Patient had some blood work through her specialists. I have encouraged her to get me a copy of these to review Transaminitis 04/30/2023 Assessment & Plan (04/30/2023 5:35 PM MEDICAL CODER): Present since least 2021. The elevated liver [...] 10/28/2022 Assessment & Plan (04/30/2023 5:32 PM MEDICAL CODER): Chronic calcification noted on prior imaging. Risk [...] symptoms Assessment & Plan (04/30/2023 5:32 PM MEDICAL CODER): Chronic but symptomatically improving. Working with Podiatry. [...] mychart. Aware to check results/results letter in [employer]. Will contact by phone if needed. Assessment [...] mychart. Aware to check results/results letter in [employer]. Will contact by phone if needed. Assessment & Plan (05/13/2023 11:09 AM MEDICAL CODER): Chronic problem. Clinically euthyroid at this time. Reviewed recent labs 02/21 & 02/27 that were vastly different. Will repeat TFTs today at [facility]. Verified that she uses mychart. Aware to check results/results letter in [employer]. Will contact by phone if needed. Aware to take 1st thing in morning, 30-60 minutes before food/drink/other medications. Assessment & Plan (04/30/2023 5:31 PM MEDICAL CODER): Chronic. Follows with endocrinology. Continue thyroid medication per specialist Assessment & Plan (01/28/2023 11:38 AM MEDICAL CODER): Chronic problem. Improved on current levothyroxine 112mcg [...] daily. TSH/T4 ordered. Verified that she uses [employer]. Aware to check results/results letter in [employer]. Will contact by phone if needed. Will send 90 day refill to [facility] once labs result Verified phone #/address if I need to call her. Pelvic floor dysfunction 04/24/2022 Assessment & Plan (04/24/2022 8:51 AM MEDICAL CODER): -no myofascial pain noted on today's exam -continue performing PFPT exercises Vaginal atrophy 04/24/2022 Assessment & Plan (04/24/2022 8:51 AM MEDICAL CODER): -discussed decreasing VET to twice per week, [...] working Assessment & Plan (04/24/2022 8:55 AM MEDICAL CODER): -she is not using the the #1 [...] well Assessment & Plan (04/30/2023 5:31 PM MEDICAL CODER): Chronic. Struggles some with anxiety at times [...] legs Assessment & Plan (04/30/2023 5:31 PM MEDICAL CODER): Chronic. Continue medication care per pain management [...] report. Assessment & Plan (04/30/2023 5:33 PM MEDICAL CODER): Noted previously. These were not mentioned on [...] Stable Assessment & Plan (04/30/2023 5:31 PM MEDICAL CODER): Chronic. Continue medication and care per pain management Assessment & Plan (10/28/2022 7:11 PM CDT): Chronic. Continue medication and care per pain management Long-term current use of opiate analgesic 2021 Overview (04/08/2022): Dr. Yon Brown Assessment & Plan (04/30/2023 5:33 PM MEDICAL CODER): Chronic. Medication care per pain management Osteopenia of multiple sites 02/12/2021 Assessment & Plan (07/13/2024 9:17 PM CDT): Stable, continue calcium supplementation and weight-bearing exercises to maintain bone density Depressive disorder 01/28/2021 Overview (04/08/2022): Sees psych, Vivi Israel Assessment & Plan (04/30/2023 5:30 PM MEDICAL CODER): Chronic. Mood is stable. Continue medication care [...] monoplegia Assessment & Plan (04/30/2023 5:30 PM MEDICAL CODER): Chronic. Continue medication and care per paint supervisor Assessment & Plan (10/28/2022 7:11 PM CDT): Chronic. Continue medication and care per paint supervisor Primary localized osteoarthritis of pelvic regio n and thigh 01/28/2021 Tobacco dependence in remission 01/28/2021 Assessment & Plan (04/30/2023 5:33 PM MEDICAL CODER): Chronic. Patient will be due for updated [...] management Assessment & Plan (04/30/2023 5:27 PM MEDICAL CODER): Chronic. Can continue medication care for pain management. She is on gabapentin, duloxetine, hydrocodone, and ropinirole Assessment & Plan (10/28/2022 7:11 PM CDT): Chronic. Can continue medication care for pain management. She is on gabapentin, duloxetine, hydrocodone known and ropinirole Assessment & Plan (02/14/2020 4:43 PM MEDICAL CODER): Patient has 10 day history of low [...] that she continue with Dr. Carreno in [place] as she sees no need to have [...] 03/24/2017 Assessment & Plan (04/30/2023 5:31 PM MEDICAL CODER): Chronic. Symptomatically has improved. Monitor. Assessment & [...] doses Assessment & Plan (04/30/2023 5:30 PM MEDICAL CODER): Chronic. Follows with endocrinology. Continue medication and care per specialists Assessment & Plan (02/12/2021 12:34 PM MEDICAL CODER): With subclinical hyperthyroidism. Will recheck free T4 [...] adjustment Assessment & Plan (04/30/2023 5:27 PM MEDICAL CODER): Chronic. Breathing is relatively stable. Denies significant [...] continue Assessment & Plan (04/30/2023 5:30 PM MEDICAL CODER): Chronic. Patient has a degree of transaminitis [...] now. Assessment & Plan (04/30/2023 5:31 PM MEDICAL CODER): Chronic. Blood pressure is very tightly controlled [...] (04/05/2022): Added automatically from request for surgery [id number] Exposure of implanted vaginal mesh 11/20/2021 04/08/2022 Overview (11/20/2021): Added automatically from request for surgery [id number] Radiculopathy, lumbosacral region 05/09/2021 04/08/2022 Other obesity due to excess calories 05/09/2021 04/08/2022 Gastroesophageal reflux disease 01/28/2021 04/08/2022 Lymphadenopathy 01/28/2021 04/08/2022 Mild chronic obstructive pulmonary disease 01/28/2021 10/28/2022 Encounter to establish care 01/28/2021 04/08/2022 Assessment & Plan (01/28/2021 2:15 PM MEDICAL CODER): A visit to establish care has been performed today. Flor Gallego is not up to date on screening tests. She is in need of Mammogram, Lung cancer screen and hepatitis c screen- these have been ordered. She is up to date on needed preventative vaccinations. Cervical radiculopathy 01/28/202104/08 Assessment & Plan (01/28/2021 2:17 PM MEDICAL CODER): Her pain management was covered by her neurologist will need new pain doctor (her neurologist is leaving the area at the end of the month) Erythrocytosis 02/24/2020 04/08/2022 Pachyderma of larynx 06/26/2017 023 WILFRED (obstructive sleep apnea) 06/26/2017 04/08/2022 Hot thyroid nodule 02/20/2017 Assessment & Plan (03/28/2022 1:56 PM MEDICAL CODER): Chronic problem, not at goal. 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 She is having increasing trouble swallowing and [...] 06/04/2022 Assessment & Plan (02/12/2021 12:45 PM MEDICAL CODER): Risk of cardiac arrhythmias with discussed. The patient is following with cardiology Bone density also requested due to the risk of bone density loss in patient with subclinical hyperthyroidism Assessment & Plan (02/06/2017 4:43 PM MEDICAL CODER): Check TFT's Treat as indicated Assessment & Plan (01/09/2017 4:27 PM CDT): Long standing, related to MNG Repeat TFT's Recommendations to follow Most likely will watch without specific intervention. Multinodular goiter (nontoxic) 01/09/2017 09/26/2022 Assessment & Plan (02/12/2021 12:55 PM MEDICAL CODER): With FNA showing follicular lesion of unknown significance. With [facility] molecular testing, negative.less than 4 % change of malignancy. Will repeat thyroid ultrasound if not changes will continue monitoring Assessment & Plan (02/06/2017 4:42 PM MEDICAL CODER): Differential diagnosis would include benign nodule (macrofollicular [...] Quadrivalent, Spl it, Preservative Free, Intramuscular 05/13/2023,01/24/2021 [email or web address] SARS-CoV-2 Monovalent Vaccination (12+ Yrs) PURPLE 09/09/2020,08/19/2020 [...] on file Legal Sex Female 7:24 PM MEDICAL CODER Gender Identity Female 02/08/2020 5:48 PM MEDICAL CODER Sexual Orientation Straight 02/08/2020 5: 48 PM MEDICAL CODER Last Filed Vital Signs Vital Sign Reading [...] on file Medical Devices Implanted Type Area Fine Wire Drawer Device Identifier Shelf Expiration Date Model / Serial / Lot Ethicon Endo Surgery Tvt Prolene 45x1.1cm Tape Mesh Transvaginal Blue [id number] - [id number] Implanted:Qty: 1 on 05/29/2022 by Aura Driscoll MD at [facility] Mesh N/A: Urethra Ethicon Endo Surgery [id number] 11/21/2024 [id number] / / [employer] Sls-Clip Ligate Triangular Wire Kathleen Groove Small Chevron Clip Latex Free [id number] - [id number] Implanted:Qty: 2 on 05/20/2022 by Sameer Alan MD at [facility] [employer] [id number] / / [facility] Sls-Clip Ligate Triangular Wire Kathleen Groove Small Chevron Clip Latex Free [id number] - [id number] Implanted:Qty: 2 on 05/20/2022 by Sameer Alan MD at [facility] [id number] / / Procedures Procedure Name Priority Date/Time [...] 12:07 AM CDT Performed at: - [facility] [address] [id number] [place] Chip Terrazzo Worker: Jack Winslow PhD, Phone: [phone] us Eddie Funez MD LAB BLOOD ORDERABLES Armida l Result [facility] - 01 * Hepatitis B core antibody, total Blood (07/14/2024 9:59 AM CDT) [facility] Hep B core IgG/IgM Negative [facility] Blood 07/14/2024 9:59 AM CDT 07/14/2024 Narrative [facility] - 07/15/2024 5:07 AM CDT Performed at: [address] [place] [id number] Marble Chip Terrazzo Worker: Jack Winslow PhD, Phone: [phone] Eddie Funez MD LAB MICROBIOLOGY - GENERA L ORDERABLES Final Result Performing Organization Address [facility] Co de Phone Number [facility] - * Hepatitis B surface antibody (immune status) Blood (07/14/2024 9:59 AM CDT) [facility] HBsAb (immune status) Non Reactive [place] [id number] Comment: Non Reactive: Not immune to HBV infection. Equivocal: Unable to determine if anti-HBs is present at levels consistent with immunity. Reactive: Anti-HBs concentration detected at greater than 10 mIU/mL. Individual is considered to be immune to infection with HBV. Blood 07/14/2024 9:59 AM CDT 07/14/2024 Narrative [facility] - 07/15/2024 5:07 AM CDT Performed at: [address] [place] [id number] Marble Chip Terrazzo Worker: Jack Winslow PhD, Phone: [phone] Eddie Funez MD LAB MICROBIOLOGY - GENERA L ORDERABLES Final Result Performing Organization Address City/[facility]/ZIP Co de Phone Number [facility] * Hepatitis B Surface Antigen Blood (07/14/2024 9:59 AM CDT) [facility] HepBsAg Negative Negative [facility] - Blood 07/14/2024 9:59 AM CDT 07/14/2024 Narrative [facility] - 07/15/2024 5:07 AM CDT Performed at: 01 - [address] [id number] Marble Chip Terrazzo Worker: Jack Winslow PhD, Phone: [phone] us Eddie Funez MD LAB MICROBIOLOGY - GENERA L ORDERABLES Final Result Performing Organization Address [facility] Co de Phone Number [facility] [...] - 07/15/2024 2:07 AM CDT Performed at: [address] [id number] Mar[place] Chip Terrazzo Worker: Jack Winslow PhD, Phone: [phone] us Eddie Funez MD LAB BLOOD ORDERABLES Armida l Result Performing Organization Address [facility] Co de Phone Number [facility] [...] - 07/15/2024 1:07 AM CDT Performed at: [address] [place] [id number] Marble Chip Terrazzo Worker: Jack Winslow PhD, Phone: [phone] Eddie Funez MD LAB BLOOD ORDERABLES Armida l Result Performing Organization Address [facility] Co de Phone Number [facility] * Estradiol (07/14/2024 9:39 AM CDT) [facility] Estradiol <5.0 0.0 - 54.7 pg/mL [facility] - 01 Comment: Adult Female Range Follicular phase 12.5 - 166.0 Ovulation phase 85.8 - 498.0 Luteal phase 43.8 - 211.0 Postmenopausal <6.0 - 54.7 1st trimester 215.0 - >4300.0 Kathi ECLIA methodology Blood 07/14/2024 9:39 AM CDT 07/14/2024 Narrative [facility] - 07/15/2024 4:07 AM CDT Performed at: [address] [place] [id number] Marble Chip Terrazzo Worker: Jack Winslow PhD, Phone: [phone] Eddie Funez MD LAB BLOOD ORDERABLES Armida l Result Performing Organization Address [facility]/ZIP Co de Phone Number [facility] - 01 * MAMMOGRAPHY (10/31/2023 2:52 PM CDT) Mammography Normal Historical Provider HEALTH MAINTENANCE Final Result * HEPATITIS C SCREENING (04/06/2023) SCRIBED HCV ab nonreactive Comment:Patient had checked through GI. She showed me a copy of the results through her [place] garcia Historical Provider HEALTH MAINTENANCE Final Result * Colonoscopy (09/18/2016) Anatomical Region Laterality Modality Other Narrative 09/18/2016 Polypectomy; repeat in 3 years Historical Provider ENDOSCOPY PROCEDURES Armida l Result from Last 3 Months or Most Recently Relevant to Health Maintenance Insurance [facility] MEDICARE ADVANTAGE IDPA [facility] MEDICARE ADVANTAGE [facility] MEDICARE ADVANTAGE IDPA Advance Directives For more information, please contact: [phone] * Full Code (Latest Code Status on File) Date Activated Date Inactivated Comments 05/20/2022 3:24 PM 05/21/2022 2:16 PM * Full Code Date Activated Date Inactivated Comments 02/12/2022 11:40 AM 02/12/2022 6:05 PM Care Teams Corrections Nurse Relationship Specialty Start Date End Date Eddie Funez MD [address] [place] [address] PCP - General Family Medicine 07/01/24 Minerva Serna MD Consulting Physician Gastroenterology 01/28/21 Alfie Vegas MD Consulting Physician Hematology 01/28/21 Toni Cintron MD [address] [place] [address] Consulting Physician Obstetrics and Gynecology 01/28/21 Brendan Thomas DPM [address] [place] [address] Consulting Physician Foot and Ankle Surg 01/28/21 Vivi Wood CNM [address] [place], [place] [id number] Nurse Practitioner Psychiatry 04/08/22 Tahmina Marvin MD [address] [place] [address] Referring Physician Pain Management 04/08/22 Cristofer Alicia MD [address] [place] [address] Referring Physician Neurosurgery 04/08/22 [place] [address] [facility] [address] [place] [address] Consulting Physician Endocrinology Diabetes & Metabolism 04/08/22 Roberto Carlos Fregoso MD [address] [facility] [place] [address] Referring Physician Otolaryngology 04/08/22 García Siddiqui DO [address] [place] [address] Referring Physician Surgery 04/08/22 Ana Delarosa MD [address] [place], [place] [id number] Consulting Physician Sleep Medicine 04/08/22 [place] [address] [place] [address] Surgeon Orthopedic Surgery 04/08/22 [place] [address] [place] [address] Referring Physician Orthopedic Surgery 04/08/22 [place] [address] [facility] [address] [place] [address] Consulting Physician Cardiology 04/08/22
--- OUTSIDE RECORDS SUMMARY | 2024-08-11 21:09 | XMS_ITS | CONTINUITY OF CARE DOCUMENT ---
Author Name maryruchi maryruchi Address Unknown Organization [facility] Address [address] [place] [address] Phone [phone] Care Team Providers Care Home Planning Consultant Salesperson Name Role Phone Mike AYALA, Rehana Unavailable [phone] Joe AYALA, Mary Unavailable Joe AYALA, [...] In-person encounter Office Visit Rehana Mckeon MD [facility] Cardiology examination - In-person encounter Office Visit Rehana Mckeon MD [facility] - In-person encounter Office Visit Rehana Mckeon MD [facility] - In-person encounter Office Visit Rehana Mckeon MD [facility] - In-person encounter Office Visit Elijah Giles MD [facility] Venous insufficiency - In-person encounter Office Visit Rehana Mckeon MD [facility] - In-person encounter Office Visit Rehana Mckeon MD [facility] - In-person encounter Office Visit Rehana Mckeon MD [facility] HTN ESSENTIAL--echo ef 60%, reoperative cardiovascular examinationHx of bariatric surgery in 2020 - In-person encounter Office Visit Rehana Mckeon MD [facility] - In-person encounter Office Visit Rehana Mckeon MD [facility] PALPITATIONSHYPERCHOLESTEROLEMIARENAL INSUFFICIENCY ECTOPIC KIDNEYCHEST PAIN, - In-person encounter Office Visit Rehana Mckeon MD [facility] TOBACCO ABUSE QUIT 12 YRS AGOCHEST [...] musaenenfeld pulse rate 79 /min Kavya Floresnfe [facility] weight E&M 149 [lb_av] Kavya Floresnfe [facility] height E&M 64 [in_i] Kavya Floresnfe [facility] blood pressure, cuff size regular [facility] blood pressure, diastolic 70 mm[Hg] [facility] blood pressure, systolic 104 mm[Hg] [facility] pulse rate 90 /min [facility] respiratory rate E&M 16 /min Shazia Linda iller oxygen saturation, oximetry 95 % [facility] Body Mass Index (Ratio) 23.51 kg/m2 [facility] weight in kilograms E&M 62.14 kg [facility] weight E&M 137 [lb_av] Shazia [place] height E&M 64 [in_i] [facility] height in centimeters E&M 162.56 cm [facility] Body Mass Index (Ratio) 23.00 kg/m2 [...] blood pressure, diastolic 59 mm[Hg] Ca therine [place] blood pressure, systolic 121 mm[Hg] Cat herine [place] oxygen saturation, oximetry 96 % Sharon Kyle pulse rate 67 /min Sharon Kyle respiratory rate E&M 14 /min Catheri ne [place] weight E&M 167 [lb_av] Sharon [place] blood pressure, cuff size regular Ca therine [place] height E&M 64 [in_i] Sharon Kyle Body Mass Index (Ratio) 37.59 kg/m2 Elgin Mckeon MD blood pressure, cuff size regular Pa ris [place] blood pressure, diastolic 74 mm[Hg] Pa ris [place] blood pressure, systolic 134 mm[Hg] Par is Phillip respiratory rate E&M 21 /min Rosa H trey pulse rate 77 /min Rosa [place] oxygen saturation, oximetry 97 % Rosa Phillip [...] pressure, diastolic, left arm 79 mm [Hg] [facility] blood pressure, systolic, left arm 126 mm [Hg] Agustin [place] blood pressure, diastolic 79 mm[Hg] Audrey seph [place] blood pressure, systolic 126 mm[Hg] Asaf eph [place] pulse rate 76 /min [place] oxygen saturation, oximetry 96 % Agustin [place] respiratory rate E&M 16 /min [place] weight E&M 260 [lb_av] [facility] ALLERGIES Allergy Name Onset Date [...] Link[facility]ic 0-149 cholesterol, serum 158 mg/dL [facility] [id number] 2812/12/ 29 basophil count, absolute 0.0 x10E3/uL [facility] [...] Not Estab. platelet count 151 X10E3/UL [facility] [id number] 0348/12/ 29 red blood cell distribution width 12.3 [...] g/dL [facility] 6.0-8.5 calcium, serum 9.3 mg/dL [facility] carbon dioxide, venous blood 31 mmol/L [facility] 20[facility]29 High chloride, serum 102 mmol/L [facility] 96-106 potassium, serum 3.0 mmol/L [facility] 3[facility]5-5.2 Low sodium, serum 147 mmol/L [facility] 134-144 High urea nitrogen/creatinine ratio, serum 17 [facility] 12-28 creatinine, serum 0.60 mg/dL [facility] 0.57-1.00 urea nitrogen, blood 10 mg/dL [facility] 8-27 blood glucose, random 86 mg/dL [facility] 70-99 thyroid stimulating hormone, serum 2.500 u[IU]/mL [facility] very low density lipoproteins 36 mg/dL [facility] triglyceride, serum, fasting 178 mg/dL [facility] HDL cholesterol, serum 53 mg/dL [facility] LDL cholesterol, serum 104 mg/dL [facility] cholesterol, serum 193 mg/dL [facility] globulins, serum, total 3.0 g/dL [facility] Estimated Glomerular Filtration Rate (calc) 58 mL/min/{1 .73_m2} [facility] albumin/globulin ratio, serum 1.3 [facility] protein, total, serum 6.9 g/dL [facility] albumin, serum 3.9 g/dL [facility] bilirubin, serum, total 0.3 mg/dL [facility] alkaline phosphatase, serum 109 1/L [facility] alanine aminotransferase (SGPT), serum 22 1/L [facility] aspartate aminotransferase (SGOT), serum 18 1/L [facility] calcium, serum 9.2 mg/dL [facility] blood glucose, fasting 84 mg/dL [facility] creatinine, serum 1.02 mg/dL [facility] urea nitrogen, blood 13 mg/dL [facility] carbon dioxide, serum, total 29 mmol/L [facility] chloride, serum 101 mmol/L [facility] potassium, serum 3.4 mmol/L [facility] sodium, serum 142 mmol/L [facility] HISTORY OF MEDICATION USE Medication Status Instructions Dates Provider Indications Com ments levothyroxine 112 mcg tablet active Agapito Dooleyzafilipe spironolactone 25 mg tablet active TAKE 1 TABLET BY MOUTH ONCE DAILY Agapito Dooleyzai losartan 50 mg tablet active TAKE 1 TABLET BY MOUTH ONCE DAILY Agapito Dooleyzai hydrocodone-acetam inophen 10-325 mg tablet active 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..] exercise, frequency, days per week no Rosa [place] caffeine use, averag e drinks per day [...] or m ore LinkLog smoking status Quit [facility] MENTAL STATUS Date Observation Value Provider assessment of judgme nt and insight E&M Alert and oriented to time, place and person. Mood and affect are normal. Rehana Mckeon MD INSURANCE PROVIDERS Payer name Policy type / Coverage type [employer] party ID AARP MCR ADVANTAGE PLAN 2 (HMO-POS) Medicare [id number] [facility] Medicaid 3 [id number] ADVANCE DIRECTIVES Name Date DISCUSSED - NO DECISION MADE TREATMENT PLAN Date Name Performer [id number],S, Rehana Mckeon MD [id number],S,c urrently asymptomatic. Her updated medication list for this problem includes: Losartan 50 Mg Tablet (Losartan) ..... Take 1 tablet by mouth once a day take 1 tablet by mouth every day Spironolactone 25 Mg Tablet (Spironolactone) ..... Take 1 tablet by mouth once a day Rehana Mckeon MD [id number],B,C ut Losartan from 100mg to 50mg daily Her updated medication list for this problem includes: Losartan 50 Mg Tablet (Losartan) ..... Take 1 tablet by mouth once a day take 1 tablet by mouth every day Spironolactone 25 Mg Tablet (Spironolactone) ..... Take 1 tablet by mouth once a day Rehana Mckeon MD [id number],C,remains tobac co free Es MATTP [id number],C,c urrently asymptomatic. H er updated medication list for this problem includes: Losartan 100 Mg Tablet (Losartan) ..... Take 1 tablet by mouth once a day take 1 tablet by mouth every day Spironolactone 25 Mg Tablet (Spironolactone) ..... Take 1 tablet by mouth once a day Es MATTP [id number],C,c ontrolled. Will continue present medication regimen H er updated medication list for this problem includes: Losartan 100 Mg Tablet (Losartan) ..... Take 1 tablet by mouth once a day take 1 tablet by mouth every day Spironolactone 25 Mg Tablet (Spironolactone) ..... Take 1 tablet by mouth once a day Es To [facility] [id number],C,S he continues to have pain left foot 3rd digit with bruising and pain with ambulation. Concern is that this is related musculoskeletal injury as no venous insufficiency noted on doppler and Sensilase with microvascular disease. Have recommended ortho eval and non-weight bearing. Es To [facility] [id number],C,D enies SOB H er updated medication list for this problem includes: Losartan 100 Mg Tablet (Losartan) ..... Take 1 tablet by mouth once a day take 1 tablet by mouth every day Spironolactone 25 Mg Tablet (Spironolactone) ..... Take 1 tablet by mouth once a day Fabiana Nalluri [id number],C,B P controleld well B P today: 122/72 [...] by mouth once a day Fabiana Nalluri CUSHION MAT MAKER [id number],C, Fabiana Nalluri CUSHION MAT MAKER [id number],C,C /o pain in left middle toe pain/cheange into purple color. She had MRI done whish shwed joint fusion. No evidence of osteomelitis or fracture. O rders: V enous Doppler Bilateral LE - Reflux (CPT-[id number]) Fabiana Leoneri CUSHION MAT MAKER [id number],S, Agapito Ahmedza i [id number],S, Agapito Ahmedza i [id number],S, Agapito Ahmedza i [id number],S, Agapito Ahmedza i [id number],W, Agapito Ahmedza i [id number],S, Agapito Ahmedza i [id number],S, Agapito Ahmedza i [id number],S, Agapito Ahmedza i [id number],S, Agapito Ahmedza i [id number],S, Agapito Ahmedza i [id number],S, Agapito Ahmedza i [id number],B, Agapito Ahmedza i [id number],S, Agapito Ahmedza i [id number],B, Agapito Ahmedza i [id number],B, Agapito Ahmedza i [id number],S, Agapito Ahmedza i Cardiology Rehana Mckeon MD [...] day Rehana Mckeon MD Cardiology:remains tobacco free [facility] Cardiology:currently asymptomatic. H er updated medication list for this problem includes: Losartan 100 Mg Tablet (Losartan) ..... Take 1 tablet by mouth once a day take 1 tablet by mouth every day Spironolactone 25 Mg Tablet (Spironolactone) ..... Take 1 tablet by mouth once a day [facility] Cardiology:controlle d. Will continue present medication regimen H er updated medication list for this problem includes: Losartan 100 Mg Tablet (Losartan) ..... Take 1 tablet by mouth once a day take 1 tablet by mouth every day Spironolactone 25 Mg Tablet (Spironolactone) ..... Take 1 tablet by mouth once a day [facility] Cardiology:She aleixa nues to have pain left foot 3rd digit with bruising and pain with ambulation. Concern is that this is related musculoskeletal injury as no venous insufficiency noted on doppler and Sensilase with microvascular disease. Have recommended ortho eval and non-weight bearing. Hillister Yousuf [facility] Cardiology:Denies SO B H er updated [...] by mouth once a day Fabiana Nalluri CUSHION MAT MAKER Cardiology Fabiana Nalluri CUSHION MAT MAKER Cardiology:C/o pain in left middle toe pain/cheange into purple color. She had MRI done whish shwed joint fusion. No evidence of osteomelitis or fracture. O rders: V enous Doppler Bilateral LE - Reflux ([id number]) Fabiana Nalluri CUSHION MAT MAKER Telehealth Agapito Ahmedzai Telehealth Agapito Ahmedzai [...]
--- OUTSIDE RECORDS SUMMARY | 2024-08-11 21:09 | XMS_ITS | Encounter Summary ---
Author Organization [facility] Address [address] [place] [address] Care Team Providers Care Renovator Machine Operator Name Role Phone Malathi Perez MD Primary Care Provider [phone] Encounter Details Date Type Department Care Team (Late st Contact Info) Description 11/21/2003 Outpatient Historical [facility] Primary Care - [address] [place] [address] Cody Rubio [place] [address] [place] [address] Social History Tobacco Use Types Packs/Day Years Used Date Smoking Tobacco: Never Assessed Comments Unknown Sex and Gender Information Value Date Recorded Sex Assigned at Not on file Legal Sex Female 5:18 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
--- OUTSIDE RECORDS SUMMARY | 2024-08-11 21:09 | XMS_ITS | Encounter Summary ---
Author Organization [facility] Address [address] [place] [address] Care Team Providers Care Agency Sales Director Name Role Phone Malathi Perez MD Primary Care Provider [phone] Encounter Details Date Type Department Care Team (Late st Contact Info) Description 04/03/2003 Outpatient Historical [facility] Marshal Gonsalves MD [facility] [place] [address] Er, Authorized P NO ADDRESS ON FILE DERMATOPHYTOSIS OF NAIL (Primary Dx) Social History Tobacco Use Types Packs/Day Years Used Date Smoking Tobacco: Never Assessed Comments Unknown Sex and Gender Information Value Date Recorded Sex Assigned at Not on file Legal Sex Female 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
--- OUTSIDE RECORDS SUMMARY | 2024-08-11 21:09 | XMS_ITS | Clinical Summary ---
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 Not on file Not on file Not [...] this topic Medical Devices Implanted Type Area Welder Repair Device Identifier Shelf Expiration Date Model / Serial / Lot Tissue Placental Matrix Flowable Viaflow 2.0cc - [id number] Implanted:Qty: 1 on 10/09/2023 by [facility] D[facility] at [facility] IMPLANT Left: Ankle [employer] 04/17/2028 AMAF-0020 / AMAF-0020 / [id number] Headles Screw Size 20 Implanted:Qty: 2 on 11/19/2022 by Yamilex Beyer DPM at [facility] Left: Foot AR-8725-20 H / AR-8725-20 H / AR-8725-20 H Explanted Type Area Welder Repair Device Identifier Shelf Expiration Date Model / Serial / Lot 2.5 Headless Screw Size 12 Implanted:Qty: 2 on 11/19/2022 by Yamilex Beyer DPM at [facility] Explanted:Qty: 2 on 05/22/2023 by Yamilex Beyer DPM at [facility] Left: Foot ARTHREX AR-8725-12H / AR-8725-12H / AR-8725-12H Insurance MEDICAID [place] MEDICARE C [employer] Care Teams Bagging Machine Operator Relationship Specialty Start Date End Date Mary Diaz MD [address] [facility] [place] [address] PCP - General Family Medicine 06/30/22
--- OUTSIDE RECORDS SUMMARY | 2024-08-11 21:09 | XMS_ITS | Encounter Summary ---
Author Organization [facility] Address 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
--- OUTSIDE RECORDS SUMMARY | 2024-08-11 21:09 | XMS_ITS | Encounter Summary ---
Author Organization [facility] Address [address] [place] [address] Care Team Providers Care Optical Dispenser Name Role Phone Malathi Perez MD Primary Care Provider [phone] Encounter Details Date Type Department Care Team (Late st Contact Info) Description 04/27/2003 Outpatient Historical [facility] Primary Care - [address] [place] [address] Cody Rubio MD [address] [facility] [address] [place] [address] Social History Tobacco Use Types Packs/Day Years Used Date Smoking Tobacco: Never Assessed Comments Unknown Sex and Gender Information Value Date Recorded Sex Assigned at Not on file Legal Sex Female 5:18 AM INSURANCE 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
--- OUTSIDE RECORDS SUMMARY | 2024-08-11 21:09 | XMS_ITS | Encounter Summary ---
Author Organization [facility] Address [address] [place] [address] Care Team Providers Care Lead Teller Name Role Phone Kareem Minerva Phillips MD Unavailable [phone] Alfie Vegas MD Unavailable [phone] Toni Cintron MD Unavailable Brendan Thomas DPM Unavailable [phone] Vivi Wood CNM Unavailable Tahmina Marvin MD Unavailable Cristofer Alicia MD Unavailable Prashanth Lee MD Unavailable Roberto Carlos Fregoso MD Unavailable García Siddiqui DO Unavailable Ana Delarosa MD Unavailable Orion Sommer MD Unavailable Alban Hernandez MD Unavailable [phone] Rehana Mckeon MD Unavailable Eddie Funez MD Primary Care Provider [phone] Encounter Details Date Type Department Care Team (Late st Contact Info) Description 07/15/2024 Results [facility] [address] [id number] Eddie Funez MD Di [facility] [place] [address] Estradiol, CBC with auto differential, Comprehensive metabolic [...] on file Legal Sex Female 7:24 PM TIMBER ESTIMATOR Gender Identity Female 02/08/2020 5:48 PM TIMBER ESTIMATOR Sexual Orientation Straight 02/08/2020 5: 48 PM TIMBER ESTIMATOR documented as of this encounter Miscellaneous Notes * Telephone Encounter - Nieves Messina MA - 07/15/2024 2:14 PM CDT Please advise on the estradiol and if you recommend that she take a supplement? documented in this encounter Plan of Treatment Not on file documented as of this encounter Visit Diagnoses Not on filedocumented in this encounter Care Teams Lead Teller Relationship Specialty Start Date End Date Eddie Funez MD [place] [address] PCP - General Family Medicine 07/01/24 Minerva Serna MD Consulting Physician Gastroenterology 01/28/21 Alfie Vegas MD Consulting Physician Hematology 01/28/21 Toni Cintron MD [address] [place] [address] Consulting Physician Obstetrics and Gynecology 01/28/21 Brendan Thomas DPM [address] [place], [place] [id number] Consulting Physician Foot and Ankle Surg 01/28/21 Vivi Wood CNM [address] [place] [address] Nurse Practitioner Psychiatry 04/08/22 Tahmina Marvin MD [address] [place] [address] Referring Physician Pain Management 04/08/22 Cristofer Alicia MD [address] [facility] [address] [place] [id number] Referring Physician Neurosurgery 04/08/22 [place] [address] [place] [address] Consulting Physician Endocrinology Diabetes & Metabolism 04/08/22 Roberto Carlos Fregoso MD [address] [facility] [place] [address] Referring Physician Otolaryngology 04/08/22 García Siddiqui DO [address] [facility] [place] [address] Referring Physician Surgery 04/08/22 Ana Delarosa MD [address] [place], [place] [address] Consulting Physician Sleep Medicine 04/08/22 [place] [address] [place] [address] Surgeon Orthopedic Surgery 04/08/22 [place] [address] [place] [address] Referring Physician Orthopedic Surgery 04/08/22 [place] [address] [place] [address] Consulting Physician Cardiology 04/08/22 documented as of this encounter
--- OUTSIDE RECORDS SUMMARY | 2024-08-11 21:10 | XMS_ITS | Clinical Summary ---
Author Organization [facility] [employer] Address [address] [place] [address] Care Team Providers Care Child Protection Specialist Name Role Phone Slick Quispe MD Primary Care Provider Source Comments [facility] [employer]non-owned Affiliates and Associated Physician Practices is amultiple site organization consisting of ambulatory clinics and hospital sitesin [place], [place], [place] and [place]. This disclosure is being madepursuant to the Care Everywhere program and may not contain all information available regarding this patient. Last updated 17.[facility] [employer] Allergies Active Allergy Reactions Criticality Noted Date Comments Xngumhpg-Boxtfippkt-Agjvcuz in Rash Medium 05/27/2024 Severity depends on [...] times daily 10/31/19 22 Active HYDROcodone-aneta taminophen (Castell) 10-325 MG tablet Take 1 (one) tablet [...] Description 05/31/2024 1:00 PM CDT Anesthesia Event [facility] [facility] [address] [address] Tai Carr MD 05/31/2024 12:50 PM CDT - 05/31/2024 2:40 PM CDT Surgery [facility] - [place] Op [address] [address] Zay Peraza DPM REMOVAL OF NEUROMA OF FOOT 2ND INTERSPACE//RESECTION OF DORSAL EXOSTOSIS FOOT, FAT PAD AUGMENTATION WITH ACELLULAR ALLOGRAFT OF FOOT 05/31/2024 10:27 AM CDT - 05/31/2024 4:02 PM CDT Hospital Encounter [facility] [place] [address] [address] Zay Peraza DPM Surgery General Discharge Disposition: [...] Sex Assigned at Female 05/20/2022 6:45 PM GLUER AND SLICER HAND Legal Sex Female 7:40 AM GLUER AND SLICER HAND Gender Identity Female 05/20/2022 6:45 PM GLUER AND SLICER HAND Sexual Orientation Straight 05/20/2022 6: 45 PM GLUER AND SLICER HAND Last Filed Vital Signs Vital Sign Reading [...] this topic Medical Devices Implanted Type Area Chemical Plant Worker Device Identifier Shelf Expiration Date Model / Serial / Lot Graft Jacket Now Thick Implanted:Qty: 1 on 05/31/2024 by Zay Peraza DPM at Formerly named [facility] Left: Superfly 10/10/2024 [id number] / / [id number] Viaflow Placental Tissue Matrix Implanted:Qty: 1 on 05/31/2024 by Zay Peraza DPM at Formerly named [facility] Left: Material [place] 05/07/2028 [id number] / / Procedures Procedure Name Priority Date/Time Associated Diagnosis Comments PATHOLOGY TISSUE EXAM (STL) Routine 05/31/2024 1:56 PM CDT Diagnosis unknown WI EXCIS INTERDIGITAL NEUROMA,EA 05/31/2024 12:51 PM CDT Special Needs 60 MINS, NARAYAN GRAFT JACKET ROSALIA GIL CONFIRMED [phone] 05/26 LR MAMMOGRAM 06/18/2022 from Last 3 Months or Most Recently Relevant to Health Maintenance Results * PATHOLOGY TISSUE EXAM (STL) (05/31/2024 1:56 PM CDT) Case Report Surgical Pathology Report Case: [id number] Authorizing Provider: Zay Peraza DPM Collected: 05/31/2024 01:56 PM Ordering Location: [facility] Received: 06/01/2024 09:42 AM Hospital - [place] Op Pathologist: Kiarra Coello MD Specimen: Neuroma 06/02/2024 10:20 AM T [facility] Final Diagnosis Neuroma, left foot, excision: Consistent with neuroma. 06/02/2024 10:20 AM [facility] at 1020 CDT Gross Description Received in formalin labeled with the patient's name and neuroma left are 2 bellamy tissue fragments, 0.5 x 0.3 x 0.2 cm in aggregate. The specimen is filtered and entirely submitted in A1. 06/02/2024 10:20 AM [facility] Disclaimer All histochemical and/or immunohistochemical results are interpreted with controls that demonstrate appropriate staining reactions before reporting results. Note on use of immunocytochemistry reagents: This test was developed and its performance characteristic determined by [facility], Department of Laboratory Medicine. It has [...] interpreted with caution. 06/02/2024 10:20 AM T [facility] Embedded Images 06/02/2024 10:20 AM [facility] Pathology/Cytolo gy NEUROMA / Unknown 05/31/2024 1:56 PM CDT 06/01/2024 9:42 AM CDT us Zay Peraza DPM LAB - PATHOLOGY/CYTOLOGY O RDERABLES Final Result [facility] [address] [address] * MAMMOGRAM (06/18/2022) Anatomical Region Laterality Modality Other 06/18/2022 Narrative 06/18/2022 Ordered by an unspecified provider. us Scanned Document SCANNING ONLY Final Result from Last 3 Months or Most Recently Relevant to Health Maintenance Insurance MEDICAID - OUT OF STATE [facility] MANAGED MEDICARE ADV MEDICARE [facility] MANAGED MEDICARE [facility] MEDICAID - [place] Care Teams Child Protection Specialist Relationship Specialty Start Date End Date Slick Quispe MD [address] [place] [address] PCP - General 08/02/21
--- OUTSIDE RECORDS SUMMARY | 2024-08-11 21:10 | XMS_ITS | Encounter Summary ---
Author Organization [facility] Address [address] [place] [address] Phone Care Team Providers Care Spanish Medical Interpreter Name Role Phone Mary Diaz MD Primary Care Provider [phone] Encounter Details Date Type Department Care Team (Latest Contact Info) Description 05/13/2023 Transcribe Orders [facility] Preop/Pacu II 1 [place] [address] Yamilex Beyer, DPM [address] [place] [address] Pre-op testing (Primary Dx) Social History Tobacco Use Types Packs/Day Years Used Date Smoking Tobacco: Former Cigarettes 3 37 1 972 - 2009 Smokeless Tobacco: Never Alcohol Use Standard Drinks/Week Comments No 0 (1 standard drink = 0.6 oz pur e alcohol) Comments No Sex and Gender Information Value Date Recorded Sex Assigned at Female 05/07/2023 5:26 AM TRADEMARK PARALEGAL Legal Sex Female 12:08 AM CDT Gender Identity Female 05/07/2023 5:26 AM TRADEMARK PARALEGAL Sexual Orientation Straight 05/07/2023 5: 26 AM [employer]EMARK [employer]GAL 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 file Not on file Not on file documented as of this encounter Plan of Treatment Not on file documented as of this encounter Results * (ABNORMAL) BASIC METABOLIC PANEL W/ CALCIUM TOTAL (05/14/2023 1:28 PM TRADEMARK PARALEGAL) SODIUM 143 136 - 145 mmol/L 05/14/2023 3:05 PM [facility] POTASSIUM 2.9(L) 3.5 - 5.1 mmol/L 05/14/2023 3:05 PM [facility] CHLORIDE 103 98 - 107 mmol/L 05/14/2023 3:05 PM [facility] CO2, VENOUS 31(H) 22 - 30 mmol/L 05/14/2023 3:05 PM [facility] ANION GAP 11.9 <18.0 mmol/L 05/14/2023 3:05 PM [facility] GLUCOSE 79 70 - 99 mg/dL 05/14/2023 3:05 PM [facility] BUN 11 10 - 20 mg/dL 05/14/2023 3:05 PM [facility] CREATININE, BLOOD 0.61 0.60 - 1.00 mg/dL 05/14/2023 3:05 PM [facility] BUN/CREATININE RATIO 18 12 - 20 ratio 05/14/2023 3:05 PM [facility] CALCIUM 8.6(L) 8.7 - 10.5 mg/dL 05/14/2023 3:05 PM [facility] IS THE PATIENT REQUIRED TO BE FASTING? No 05/14/2023 3:05 PM [facility] GFR, ESTIMATED >60 >=60 05/14/2023 3:05 PM [facility] Comment: Creatinine Clearance is the preferred criteria for selecting drug dose adjustments in renally impaired patients. The GFR is provided as additional pertinent clinical information. GFR is reported in mL/min/1.73 sq m. Calculation based on the Chronic Kidney Disease Epidemiology Collaboration (CKD- EPI) equation refit without adjustment for race. GFR, EST. >60 >=60 024 3:05 PM [facility] GFR, EST. NONAFRICAN >60 >=60 05/14/2023 3:05 PM TRADEMARK PARALEGAL [facility] Blood Venipuncture / Unknown 05/14/2023 1:28 PM TRADEMARK PARALEGAL 05/14/2023 2:37 PM [employer]ARK [employer] us Yamilex Beyer DPM CHEMISTRY ORDERABLES Final R esult [facility] [place] [address] documented in this encounter Visit Diagnoses Diagnosis Pre-op testing- Primary Preoperative examination, unspecified documented in this encounter Care Teams Spanish Medical Interpreter Relationship Specialty Start Date End Date Mary Diaz MD [address] [place] [address] [place] [address] PCP - General Family Medicine 06/30/22 documented as of this encounter
--- OUTSIDE RECORDS SUMMARY | 2024-08-11 21:10 | XMS_ITS | Encounter Summary ---
Author Organization [facility] Address [address] [place] [address] Phone Care Team Providers Care Harness Cleaner Name Role Phone Mary Diaz MD Primary Care Provider [phone] Reason for Referral * Radiology Services (Routine) - Closed Specialty Diagnoses / Procedures Referred By Victor Hugo nobles Referred To Contact Radiology Diagnoses Metatarsalgia Hammertoe of left foot Pre-op testing Procedures EKG 12 LEAD Yamilex Beyer DPM Phone: tel: fax: Referral ID Status Reason Start Date Expiration Date Visits Re quested Visits Authorized [id number] Closed 10/30/2022 1 1 Encounter Details Date Type Department Care Team (Latest Contact Info) Description 10/30/2022 Transcribe Orders [facility] Preop/Pacu II 1 [place] [address] Yamilex Beyer DPM [address] [place] [address] Metatarsalgia (Primary Dx); Hammertoe of left foot; Pre-op testing Social History Tobacco Use Types Packs/Day Years Used Date Smoking Tobacco: Former Cigarettes 3 37 Smokeless Tobacco: Never Alcohol Use Standard Drinks/Week Comments No 0 (1 standard drink = 0.6 oz pur e alcohol) Comments No Sex and Gender Information Value Date Recorded Sex Assigned at Female 05/07/2023 5:26 AM RAMP ATTENDANT Legal Sex Female 12:08 AM CDT Gender Identity Female 05/07/2023 5:26 AM RAMP ATTENDANT Sexual Orientation Straight 05/07/2023 5: 26 AM RAMP ATTENDANT 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 Not on file [...] QTC CALCULATION 440 ms EXTERNAL EKG P Ramsey 2 degrees EXTERNAL EKG R Ramsey 79 degrees EXTERNAL EKG T Ramsey 75 degrees EXTERNAL EKG 11/11/2022 2:45 PM CDT Impressions EXTERNAL EKG - 11/14/2022 1:12 PM CDT Normal sinus rhythm Normal ECG No previous ECGs available Confirmed by Freddy Beaulieu ([id number]) on 11/14/2022 1:12:12 PM Narrative Procedure Note Freddy Witt MD - 11/14/2022 IMPRESSION: Normal sinus rhythm Normal ECG No previous ECGs available Confirmed by Freddy Beaulieu ([id number]) on 11/14/2022 1:12:12 PM us Yamilex Beyer DPM IMG ECG ORDERABLES Final Res ult EXTERNAL EKG * (ABNORMAL) BASIC METABOLIC PANEL W/ CALCIUM TOTAL (11/11/2022 2:39 PM CDT) SODIUM 145 136 - 145 mmol/L 11/11/2022 5:08 PM CDT [facility] POTASSIUM 2.9(L) 3.5 - 5.1 mmol/L 11/11/2022 5:08 PM CDT [facility] CHLORIDE 103 98 - 107 mmol/L 11/11/2022 5:08 PM CDT [facility] CO2, VENOUS 30 22 - 30 mmol/L 11/11/2022 5:08 PM CDT [facility] ANION GAP 14.9 <18.0 mmol/L 11/11/2022 5:08 PM CDT [facility] GLUCOSE 77 70 - 99 mg/dL 11/11/2022 5:08 PM CDT [facility] BUN 9(L) 10 - 20 mg/dL 11/11/2022 5:08 PM CDT [facility] CREATININE, BLOOD 0.68 0.60 - 1.00 mg/dL 11/11/2022 5:08 PM CDT [facility] BUN/CREATININE RATIO 13 12 - 20 ratio 11/11/2022 5:08 PM CDT [facility] CALCIUM 9.1 8.7 - 10.5 mg/dL 11/11/2022 5:08 PM CDT [facility] IS THE PATIENT REQUIRED TO BE FASTING? No 11/11/2022 5:08 PM CDT [facility] GFR, ESTIMATED >60 >=60 11/11/2022 5:08 PM T [facility] Comment: Creatinine Clearance is the preferred criteria for selecting drug dose adjustments in renally impaired patients. The GFR is provided as additional pertinent clinical information. GFR is reported in mL/min/1.73 sq m. Calculation based on the Chronic Kidney Disease Epidemiology Collaboration (CKD- EPI) equation refit without adjustment for race. GFR, EST. >60 >=60 023 5:08 PM CDT [facility] GFR, EST. NONAFRICAN >60 >=60 11/11/2022 5:08 PM CDT [facility] Blood Venipuncture / Unknown 11/11/2022 2:39 PM CDT 11/11/2022 4:38 PM CDT us Yamilex Beyer DPM CHEMISTRY ORDERABLES Final R esult [facility] [address] [place] [address] documented in this encounter Visit Diagnoses Diagnosis Metatarsalgia- Primary Enthesopathy of ankle and tarsus, unspecified Hammertoe of left foot Pre-op testing Preoperative examination, unspecified Metatarsalgia Enthesopathy of ankle and tarsus, unspecified Hammertoe of left foot Pre-op testing Preoperative examination, unspecified documented in this encounter Care Teams Harness Cleaner Relationship Specialty Start Date End Date Mary Diaz MD [address] [place] [address] DR VARMA [address] [place] [address] PCP - General Family Medicine 06/30/22 documented as of this encounter
--- OUTSIDE RECORDS SUMMARY | 2024-08-11 21:10 | XMS_ITS | Continuity of Care Document ---
Author Organization [employer] Address [address] [place] [address] Phone Care Team Providers Care Air Tool Operator Name Role Phone Magda PT, MINGT, Joe Unavailable Unavailable Procedures Procedure Date Progress Note Therapeutic Activities Therapeutic Exercise Neuromuscular Re-Ed Therapeutic Activities Neuromuscular Re-Ed Therapeutic Exercise Therapeutic Activities Neuromuscular Re-Ed Therapeutic Exercise Therapeutic Activities Neuromuscular Re-Ed Therapeutic Exercise Neuromuscular Re-Ed Therapeutic Activities Therapeutic Exercise Therapeutic Activities Neuromuscular Re-Ed Therapeutic [...] Diagnoses Date Provider Providers Copied on Encounter [facility] [address], [place], [place], [id number], tel:[phone] [place] No Information Dec- 2 Magda Diaz. . [facility], [place], [place], [id number], tel:[phone] [place] No Information Nov-2 2 Magda Diaz. . Referring Provider: Owen Meadows0 [facility] [address], [place], [address]. tel:[phone] [facility], [place], [place], [id number], tel:[phone] [place] No Information Sep-1 2 Magda Diaz. . Referring Provider: Cristofer Alicia [address] [facility] [address], [place], [address]. tel:[phone] [facility] [address], [place], [place], [id number], [place] tel:[phone] [place] No Information Sep-1 - 2 [place], [place], [place]. Referring Provider: Jessica Meadows [facility] [address], [place], [address]. tel:[phone] [facility] [address], [place], [place], [id number], [place] tel:[phone] [place] No Information Sep-0 2 Modglin Ralph. . Referring Provider: Jessica Meadows [facility] [address], [place], [address]. tel:[phone] [facility], [place], [place], [id number], [place] tel:[phone] [place] No Information Sep-0 2 Klahn Joe. . Referring Provider: Cristofer Alicia, Owen[address] [facility] [address], [place], [address]. tel:[phone] [facility], [place], [place], [id number], [place] tel:[phone] [place] No Information Sep-0 2 Klahn Joe. . Referring Provider: Cristofer Alicia Owen[address] [facility] [address], [place], [address]. tel:[phone] [facility], [place], [place], [address], [place] tel:[phone] [place] No Information 2 Klahn Joe. . Referring Provider: Cristofer Alicia Owen0 [facility] [address], [place], [address]. tel:[phone] [facility], [place], [place], [id number], [place] tel:[phone] [place] No Information 2 Klahn Joe. . Referring Provider: Cristofer Alicia Owen0 [facility] [address], [place], [address]. tel:[phone] [facility], [place], [place], [address], [place] tel:[phone] [place] No Information 2 Klahn Joe. . Referring Provider: Cristofer Alicia Owen0 [facility] [address], [place], [address]. tel:[phone] [facility], [place], [place], [address], [place] tel:[phone] J[place]hree No Information 9 Treaster Yaima. . [facility], [place], [place], [address], [place] tel:[phone] [place] No Information 9 Treaster Yaima. . [facility], [place], [place], [address], [place] tel:[phone] Jayshree No Information Karina Erwin. . [facility], [place], [place], [address], [place] tel:[phone] J[place]hree No Information 9 Karina Erwin. . Family History Family Member Type Diagnosis Age At Onset No Information Payers Payer name Insurance type Covered constitution party ID Zak plascenciajune(s) [facility] [employer] [id number] Social History Type Description Quantity Date Captured [...]
[2024-08-11] MEDS: SODIUM CHLORIDE 0.9% IV 1,000 ML 999 ML IV CONT ×2 (21:13→23:01)
[2024-08-11] MEDS: ONDANSETRON INJ 4 MG/2 ML VIAL IV PUSH (21:13)
[2024-08-11] MEDS: MORPHINE SULFATE (*CRX) 4 MG/ML INJ IV PUSH (21:14)
[2024-08-11 21:33] LABS: Add Urine Microscopic? YES; Appearance Urine Clear (Clear); Bacteria Urine None Seen /hpf; Bilirubin Urine Negative (Negative); Blood Urine 1+ (Negative); Color Urine Yellow (Yellow); Glucose Urine UA Negative (Negative); Ketones Urine 2+ mg/dL (Negative); Leukocyte Esterase Ur 1+ LEU/UL (Negative); Need Manual Microscopic Reviewed; Nitrate Urine Negative (Negative); Non Pathogenic Casts 0-2; Protein Urine 1+ mg/dL (Negative); Specific Grav Ur 1.018 (1.001-1.035); Squamous Epithelial Cell Urine None Seen /hpf (Few); WBC Urine 0-5 /hpf (0-3); pH Urine 6.5 (5.0-9.0)
--- NOTE | 2024-08-11 22:26 | ED_ITS ---
HPI - Nausea/Vomiting/Diarrhea General Chief complaint: Nausea/Vomiting/Diarrhea <Debbi Pozo PA-C - Last Filed: 08/12/24 00:02> Stated complaint: N/V, seen last night for same <Debbi Pozo PA-C - Last Filed: 08/12/24 00:02> Time Seen by Provider: 08/11/24 20:36 <Dbebi Pozo PA-C - Last Filed: 08/12/24 00:02> Source: patient <CHADWICK Moran Last Filed: 08/12/24 00:02> Mode of arrival: ambulatory <CHADWICK Moran Last Filed: 08/12/24 00:02> Limitations: no limitations <CHADWICK Moran Last Filed: 08/12/24 00:02> History of Present Illness HPI Narrative: This is a 63-year-old female that presents to the emergency department for flank pain, nausea and vomiting. She was seen here for this yesterday and diagnosed with a kidney stone. Reports worsening pain, unable to keep anything down today. Denies fevers. <Debbi Pozo PA-C - Last Filed: 08/12/24 00:02> Related Data Home medications: Home Medications ?Medication ?Instructions ?Recorded ?Confirmed ?Last Taken ?Type calcium citrate 200 mg PO DAILY 09/26/20 08/12/24 07/31/24 09:00 History cyclobenzaprine 10 mg tablet 10 mg PO .qd 09/07/21 08/12/24 07/30/24 21:00 History spironolactone 25 mg tablet 25 mg PO DAILY 07/08/22 08/12/24 07/30/24 21:00 History rosuvastatin 20 mg tablet 20 mg PO DAILY 11/04/22 08/12/24 07/30/24 21:00 History tiotropium bromide 18 mcg capsule 1 cap inhalation DAILY 11/03/23 08/12/24 Unknown History with inhalation device (Spiriva with HandiHaler) albuterol 90 mcg-budesonide 80 2 inh inhalation Q6H PRN shortness 08/01/24 08/12/24 Unknown History mcg/actuation HFA aerosol inhaler of breath (Airsupra) estradiol 0.01% (0.1 mg/gram) 1 g vaginal 3XW PRN hormones 08/01/24 08/12/24 Unknown History vaginal cream gabapentin 100 mg capsule 100 mg PO BID 08/01/24 08/12/24 07/30/24 21:00 History potassium chloride 20 mEq 20 meq PO DAILY 08/01/24 08/12/24 07/31/24 09:00 History tablet,extended release(part/cryst) levothyroxine 112 mcg tablet 112 mcg PO DAILY 08/12/24 08/12/24 Unknown History <Debbi Pozo PA-C - Last Filed: 08/12/24 00:02> Allergies/Adverse reactions: Allergies Allergy/AdvReac Type Severity Reaction Status Date / Time poison sumac extract Allergy Severe Rash Verified 05/08/24 13:12 adhesive tape AdvReac Mild Rash Verified 05/08/24 13:12 bacitracin (From Neosporin AdvReac Mild Rash Verified 05/08/24 13:12 ([id number])) neomycin (From Neosporin AdvReac Mild Rash Verified 05/08/24 13:12 ([id number])) polymyxin B (From Neosporin AdvReac Mild Rash Verified 05/08/24 13:12 ([id number])) <Debbi Pozo PA-C - Last Filed: 08/12/24 00:02> Review of Systems 2 Review of Systems: CONSTITUTIONAL: Denies fever GASTROINTESTINAL: Reports abdominal pain, nausea, vomiting GENITOURINARY: Denies dysuria or hematuria. <Debbi Pozo PA-C - Last Filed: 08/12/24 00:02> All systems reviewed & are unremarkable except as noted in HPI and below < Debbi Pozo PA-C - Last Filed: 08/12/24 00:02> [facility] Past Medical History Medical History: Medical History (Updated 08/12/24 @ 06:27 by Yeyo Wild MD) Major depressive disorder, recurrent severe without psychotic features LPRD (laryngopharyngeal reflux disease) Vasomotor rhinitis Gallbladder disorder RLS (restless legs syndrome) Heart murmur History of tobacco abuse Quit 2008 Obstructive sleep apnea Resolved after weight loss surgery with a 240 lb weight loss most recent polysomnogram 2021 Osteoporosis Arthritis of shoulder region, right Subacromial impingement of right shoulder Hair loss Psoriasis Wears glasses Hearing loss Chronic headaches Ectopic kidney Spondylosis of lumbar spine Ocular migraine Vitamin D deficiency Female stress incontinence Osteoarthritis of knees, bilateral Hot thyroid nodule Tea's thyroiditis Depression Fibromyalgia Hyperlipidemia DDD (degenerative disc disease) Hypertension Asthma Venous reflux <Debbi Pozo PA-C - Last Filed: 08/12/24 00:02> Surgical History Surgical History: Surgical History H/O thyroidectomy (05/29/22) History of tubal ligation History of ear, nose, and throat (ENT) surgery (~2013) sinus cautery History of hysterectomy, supracervical (07/25/10) History of endometrial ablation (01/04/10) hscope novasure ablation History of dilation and curettage (12/07/09) hscope d&c/polypectomy x3 others History of right hip replacement (01/03/21) History of sleeve gastrectomy (06/23/20) 240 lb weight loss History of foot surgery Hammer Toe 2003 History of fusion of cervical spine History of cholecystectomy History of knee surgery PCL reconstruction 01/12/15 Dr. Sommer H/O colonoscopy with polypectomy 03/24/02 <Debbi Pozo PA-C - Last Filed: 08/12/24 00:02> Family History Family History: Family History Father Acute myocardial infarction Myocardial infarction Hypertension Grandparent Diabetes mellitus Carcinoma of colon Mother Lung cancer COPD (chronic obstructive pulmonary disease) Sibling Lung cancer Other Family history of cardiovascular disease <Debbi Pozo PA-C - Last Filed: 08/12/24 00:02> Social History Social History: Social History Social History: Patient lives in [place] with her . She used to smoke up to 3 packs of cigarettes per day but quit smoking 2008. She denies history of heavy alcohol use. She does smoke marijuana daily. She reports that she has been disabled for 20 or 30 years. Code status: Full code Surrogate decision maker: Smoking packs per day: 3 Smoking cigarettes per day: 60.0 Years smoked: 37 Smoking pack-years: 111.00 Smoking status: Former smoker Tobacco type: cigarettes Smoking end date: 06/22/08 Additional smoking assessment comments: 2-3 packs a day Alcohol intake: former Substance use: current Substance use type: marijuana Other substance usage details: medical marijuana Last use: daily Do You Feel Safe in your Home?: Yes Lack of Transportation: No Lack of Food: Never True Current Housing: I Have Housing Concerned About Future Housing: No Difficulty Paying Gas/Electric Bills: No Difficulty Paying for Meds: No Currently Unemployed: No Education: Trade/Vocational Certificate Difficulty w/ Childcare or Family Care: No Living arrangements: other Additional living arrangements comments: Occupation/Education: unemployed Additional occupation/education comments: disabled Gender identity (if verbalized by the patient): Female Sexual Orientation (if Verbalized by the Patient): Straight or Heterosexual Spiritual care concerns: No <Debbi Pozo PA-C - Last Filed: 08/12/24 00:02> Exam 2 Narrative: GENERAL: Uncomfortable, well-nourished, and in no acute distress. HEAD: Normocephalic, atraumatic. EYES: EOMI. CHEST: Clear to auscultation. No respiratory distress. No wheezes rales or rhonchi HEART: Regular rate and rhythm. No murmur heard. Normal peripheral pulses. ABDOMEN: Soft, nontender, nondistended, normal active bowel sounds. EXTREMITIES: Normal range of motion. No edema. SKIN: Warm, dry, no rash. NEURO: No focal deficits. Alert and oriented x3. PSYCH: Normal mood and affect <Debbi Pozo PA-C - Last Filed: 08/12/24 00:02> Course Course Emergency Course: Patient updated on her workup. Reports she is still quite uncomfortable, does not feel like she is able to be discharged tonight <Debbi Pozo PA-C - Last Filed: 08/12/24 00:02> JOB TRAINING SUPERVISOR/PA Physician Supervision For this patient encounter, I reviewed the JOB TRAINING SUPERVISOR or PA documentation, treatment plan, and medical decision making; and I had [id number] time with this patient. <Crow Hopkins MD - Last Filed: 08/12/24 07:43> Consultations Consultation #1: Spoke with Urology who will consult <Debbi Pozo PA-C - Last Filed: 08/12/24 00:02> Date: 08/11/24 <CHADWICK Moran Last Filed: 08/12/24 00:02> Consultation #2: Spoke with hospitalist about patient and workup who accepts admission < Debbi Pozo PA-C - Last Filed: 08/12/24 00:02> Date: 08/11/24 <Debbi Pozo PA-C - Last Filed: 08/12/24 00:02> Vital Signs Vital signs: Vital Signs Temperature 97.9 F 08/11/24 17:25 Pulse Rate 77 08/11/24 17:25 Respiratory Rate 16 08/11/24 17:25 Blood Pressure 170/90 H 08/11/24 17:25 Pulse Oximetry 100 08/11/24 17:25 Temperature 98.3 F 08/12/24 03:37 Pulse Rate 86 08/12/24 03:37 Respiratory Rate 17 08/12/24 03:37 Blood Pressure 146/67 H 08/12/24 03:37 Pulse Oximetry 97 08/12/24 03:37 Oxygen Delivery Room Air 08/12/24 00:56 <Debbi Pozo PA-C - Last Filed: 08/12/24 00:02> Vital Signs Temperature 97.9 F 08/11/24 17:25 Pulse Rate 77 08/11/24 17:25 Respiratory Rate 16 08/11/24 17:25 Blood Pressure 170/90 H 08/11/24 17:25 Pulse Oximetry 100 08/11/24 17:25 Temperature 98.3 F 08/12/24 03:37 Pulse Rate 86 08/12/24 03:37 Respiratory Rate 17 08/12/24 03:37 Blood Pressure 146/67 H 08/12/24 03:37 Pulse Oximetry 97 08/12/24 03:37 Oxygen Delivery Room Air 08/12/24 00:56 <Crow Hopkins MD - Last Filed: 08/12/24 07:43> MDM - Nausea/Vomiting/Diarrhea MDM Narrative Medical decision making narrative: Patient presents to the emergency department for abdominal pain, nausea and vomiting. Known ureteral stone. She is afebrile and nontoxic appearing. Blood pressure elevated upon arrival, this down trended with management of her pain. CBC with mild leukocytosis to 10.6. Also shows hemoconcentration. Metabolic panel with evidence of dehydration, hypokalemia. Urine without evidence of infection. Does show red blood cells. KUB obtained which shows redemonstration of calculus over the mid left ureter, likely obstructing residual intravenous contrast opacifies the dilated collecting system of the left kidney. Patient updated on her workup. Reports she is still quite uncomfortable, does not feel like she is able to be discharged tonight. Spoke with Urology who will consult. Patient will be made NPO after midnight. Spoke with hospitalist about patient and workup who accepts admission <Debbi Pozo PA-C - Last Filed: 08/12/24 00:02> Differential Diagnosis Differential diagnosis: Likely food poisoning, gastroenteritis, dehydration and other (kidney stone) <Debbi Pozo PA-C - Last Filed: 08/12/24 00:02> Lab Data Attestation: I reviewed the patient's lab results. <Debbi Pozo PA-C - Last Filed: 08/12/24 00:02> Result diagrams: 08/12/24 04:31 08/12/24 04:31 <CHADWICK Moran Last Filed: 08/12/24 00:02> Labs: Lab Results 08/11/24 08/11/24 08/11/24 Range/Units 20:46 20:47 21:11 WBC 10.6 H (4.5-10.0) K/mm3 RBC 5.17 (4.2-5.4) M/mm3 Hgb 15.4 H (12.0-15.0) g/dL Hct 47.6 H (37.0-47.0) % MCV 92.1 (80-100) fl MCH 29.8 (26-34) pg MCHC 32.4 (32-36) g/dl RDW 12.2 (11.5-14.5) % Plt Count 189 (150-375) k/mm3 MPV 10.1 (7.4-10.4) fl Immature Gran % (Auto) 0.2 (0-0.5) % Neut % (Auto) 91.2 H (45.5-73.1) % Lymph % (Auto) 4.2 L (18.3-44.2) % Eddy % (Auto) 4.1 (2.6-8.5) % Eos % (Auto) 0.0 (0-4.4) % Baso % (Auto) 0.3 (0.2-1.2) % Lymph # (Auto) 0.45 L (0.9-3.2) K/mm3 Eddy # (Auto) 0.4 (0.1-0.6) K/mm3 Eos # (Auto) 0.0 (0-0.3) K/mm3 Baso # (Auto) 0.0 (0.0-0.1) K/mm3 Abs Immat Gran (auto) 0.02 (0.00-0.031) K/mm3 Absolute Neuts (auto) 9.7 H (1.3-6.7) K/mm3 Absolute Nucleated RBC 0.000 (0.0-0.012) K/mm3 Nucleated RBC % 0.0 (0.0-0.2) % Sodium 137 (137-145) mmol/L Potassium 3.1 L (3.4-5.0) mmol/L Chloride 101 (98-107) mmol/L Carbon Dioxide 24 (22-30) mmol/L Anion Gap 12 (4-12) mmol/L BUN 13 D (7-17) mg/dL Creatinine 1.19 H (0.7-1.0) mg/dL Estim Creat Clear Calc 38 ml/min Estimated GFR 46 L (59 - ) Glucose 149 H (65-110) mg/dL Calcium 9.1 (8.4-10.2) mg/dL Magnesium 2.0 (1.6-2.3) mg/dL Total Bilirubin 1.0 (0.2-1.3) mg/dL AST 45 H (14-36) U/L ALT 53 H (6-35) U/L Alkaline Phosphatase 159 H (38-126) U/L Total Protein 8.0 (6.3-8.2) g/dL Albumin 4.4 (3.5-5.1) g/dL Lipase 52 (23-300) U/L Urine Color Yellow (Yellow) Urine Appearance Clear (Clear) Urine pH 6.5 (5.0-9.0) Ur Specific [place] 1.018 (1.001-1.035) Urine Protein 1+ H (Negative) mg/dL Urine Glucose (UA) Negative (Negative) mg/dL Urine Ketones 2+ H (Negative) mg/dL Ur Blood (Man) 1+ H (Negative) Urine Nitrate Negative (Negative) Urine Bilirubin Negative (Negative) Urine Urobilinogen 1.0 (<2.0) mg/dL Add Ur Microanalysis Reviewed Leukocyte Esterase Rfl 1+ H (Negative) FABIOLA/UL Urine RBC 11-20 H (0-2) /hpf Urine WBC 0-5 (0-3) /hpf Ur Squamous Epith Cells None seen (Few) /hpf Urine Bacteria None seen /hpf Urine Casts 0-2 <Debbi Pozo PA-C - Last Filed: 08/12/24 00:02> Lab Results 08/11/24 08/11/24 08/11/24 Range/Units 20:46 20:47 21:11 WBC 10.6 H (4.5-10.0) K/mm3 RBC 5.17 (4.2-5.4) M/mm3 Hgb 15.4 H (12.0-15.0) g/dL Hct 47.6 H (37.0-47.0) % MCV 92.1 (80-100) fl MCH 29.8 (26-34) pg MCHC 32.4 (32-36) g/dl RDW 12.2 (11.5-14.5) % Plt Count 189 (150-375) k/mm3 MPV 10.1 (7.4-10.4) fl Immature Gran % (Auto) 0.2 (0-0.5) % Neut % (Auto) 91.2 H (45.5-73.1) % Lymph % (Auto) 4.2 L (18.3-44.2) % Eddy % (Auto) 4.1 (2.6-8.5) % Eos % (Auto) 0.0 (0-4.4) % Baso % (Auto) 0.3 (0.2-1.2) % Lymph # (Auto) 0.45 L (0.9-3.2) K/mm3 Eddy # (Auto) 0.4 (0.1-0.6) K/mm3 Eos # (Auto) 0.0 (0-0.3) K/mm3 Baso # (Auto) 0.0 (0.0-0.1) K/mm3 Abs Immat Gran (auto) 0.02 (0.00-0.031) K/mm3 Absolute Neuts (auto) 9.7 H (1.3-6.7) K/mm3 Absolute Nucleated RBC 0.000 (0.0-0.012) K/mm3 Nucleated RBC % 0.0 (0.0-0.2) % Sodium 137 (137-145) mmol/L Potassium 3.1 L (3.4-5.0) mmol/L Chloride 101 (98-107) mmol/L Carbon Dioxide 24 (22-30) mmol/L Anion Gap 12 (4-12) mmol/L BUN 13 D (7-17) mg/dL Creatinine 1.19 H (0.7-1.0) mg/dL Estim Creat Clear Calc 38 ml/min Estimated GFR 46 L (59 - ) Glucose 149 H (65-110) mg/dL Calcium 9.1 (8.4-10.2) mg/dL Magnesium 2.0 (1.6-2.3) mg/dL Total Bilirubin 1.0 (0.2-1.3) mg/dL AST 45 H (14-36) U/L ALT 53 H (6-35) U/L Alkaline Phosphatase 159 H (38-126) U/L Total Protein 8.0 (6.3-8.2) g/dL Albumin 4.4 (3.5-5.1) g/dL Lipase 52 (23-300) U/L Urine Color Yellow (Yellow) Urine Appearance Clear (Clear) Urine pH 6.5 (5.0-9.0) Ur Specific [place] 1.018 (1.001-1.035) Urine Protein 1+ H (Negative) mg/dL Urine Glucose (UA) Negative (Negative) mg/dL Urine Ketones 2+ H (Negative) mg/dL Ur Blood (Man) 1+ H (Negative) Urine Nitrate Negative (Negative) Urine Bilirubin Negative (Negative) Urine Urobilinogen 1.0 (<2.0) mg/dL Add Ur Microanalysis Reviewed Leukocyte Esterase Rfl 1+ H (Negative) FABIOLA/UL Urine RBC 11-20 H (0-2) /hpf Urine WBC 0-5 (0-3) /hpf Ur Squamous Epith Cells None seen (Few) /hpf Urine Bacteria None seen /hpf Urine Casts 0-2 <Crow Hopkins MD - Last Filed: 08/12/24 07:43> Imaging Data Radiologist's impression: ITS Impressions Abdomen X-Ray 08/11/24 22:43 IMPRESSION: Redemonstration of a calculus projecting over the mid left ureter, likely obstructing residual intravenous contrast opacifies the dilated collecting system of the left kidney <Debbi Pozo PA-C - Last Filed: 08/12/24 00:02> Critical Care Time Critical Care Time Critical Care Time: Yes <Debbi Pozo PA-C - Last Filed: 08/12/24 00:02> Total Critical Care Time: 35 <Debbi Pozo PA-C - Last Filed: 08/12/24 00:02> Discharge Plan Discharge Clinical Impression: Ureterolithiasis, Acute kidney injury, Hypokalemia <Debbi Pozo PA-C - Last Filed: 08/12/24 00:02> Patient Disposition: Still a Patient <CHADWICK Moran Last Filed: 08/12/24 00:02> Condition: Stable <CHADWICK Moran Last Filed: 08/12/24 00:02>
[2024-08-11] MEDS: HYDROmorphone HCL INJ (*CRX) 2 MG/ML VIAL 0.5 MG IV PUSH (23:01)
[2024-08-11 23:28] VITALS: BP 136/86; PULSE 89; RESP 16; O2SAT 96
[2024-08-11 23:31] VITALS: BP 136/86; PULSE 89; RESP 16; O2SAT 96
[2024-08-11 23:55] VITALS: BP 172/91; PULSE 74; RESP 18; TEMP 36.6; O2SAT 100; BMI 25.5
--- NOTE | 2024-08-11 23:56 | ADMGEN ---
This patient, Flor Gallego, was admitted to 2 Medical Room 240-01. Patient/family oriented to hospital policies and general routines including ID bracelet, bed and alarms, visiting hours, pain management, procedures, bathroom and other care routines, personal items, smoking policy, room service/diet, and visiting hours. Information on how to activate the Rapid Response Team has been discussed. Patient/Family are encouraged to report perceived risks to care and to ask questions if they do not understand what they are told or what they should do.
[2024-08-12] VITALS (9 sets, daily range): BP systolic 143–177; BP diastolic 65–84; PULSE 73–98; RESP 14–18; TEMP 36.3–38.1; O2SAT 96–100
[2024-08-12] MEDS: SODIUM CHLORIDE 0.9% IV 1,000 ML 125 ML IV CONT (00:32)
[2024-08-12] MEDS: POTASSIUM CHLORIDE INJ 40 MEQ in SODIUM CHLORIDE 0.9% IV 500 ML 130 MEQ IVPB (01:09)
[2024-08-12] MEDS: PANTOPRAZOLE 40 MG TABLET PO (01:19)
[2024-08-12] MEDS: rOPINIRole HCL 1 MG TABLET 3 MG PO (01:19)
[2024-08-12 01:53] LABS: Magnesium 1.8 mg/dL (1.6-2.3)
[2024-08-12] MEDS: MORPHINE SULFATE (*CRX) 4 MG/ML INJ IV PUSH ×2 (02:52→08:36)
[2024-08-12] MEDS: MAGNESIUM SULF 1 GM/D5W 100 ML 1 GM/100 ML BAG IVPB (03:36)
[2024-08-12 05:18] LABS: Basophils Percent Auto 0.3 % (0.2-1.2); Hematocrit 43.2 % (37.0-47.0); Hemoglobin 13.7 g/dL (12.0-15.0); Immature Granulocyte Absolute 0.05 K/mm3 (0.00-0.031); Immature Granulocyte Percent A 0.5 % (0-0.5); Lymphocytes Absolute Auto 1.06 K/mm3 (0.9-3.2); Mean Corpuscular HGB Conc 31.7 g/dl (32-36); Mean Corpuscular Hemoglobin 29.5 pg (26-34); Mean Corpuscular Volume 93.1 fl (80-100); Mean Platelet Volume 10.7 fl (7.4-10.4); Monocytes Absolute Auto 0.9 K/mm3 (0.1-0.6); Monocytes Percent Auto 9.2 % (2.6-8.5); Neutrophils Absolute Auto 7.6 K/mm3 (1.3-6.7); Platelet Count Result 184 k/mm3 (150-375); Red Blood Count 4.64 M/mm3 (4.2-5.4); Red Cell Distribution Width 12.4 % (11.5-14.5); White Blood Count 9.7 K/mm3 (4.5-10.0)
[2024-08-12 05:25] LABS: Alanine Aminotransferase 40 U/L (6-35); Albumin Level 3.6 g/dL (3.5-5.1); Alkaline Phosphatase 126 U/L (38-126); Anion Gap 5 mmol/L (4-12); Aspartate Amino Transferase 36 U/L (14-36); Bilirubin,Total 0.7 mg/dL (0.2-1.3); Blood Urea Nitrogen 11 mg/dL (7-17); Calcium 8.2 mg/dL (8.4-10.2); Carbon Dioxide 26 mmol/L (22-30); Chloride 106 mmol/L (98-107); Estimated CRCL calculation 39 ml/min; Estimated Glomerular Filt Rate 47; Glucose 129 mg/dL (65-110); Magnesium 2.3 mg/dL (1.6-2.3); Potassium 3.7 mmol/L (3.4-5.0); Sodium 137 mmol/L (137-145)
[2024-08-12] MEDS: LEVOTHYROXINE SODIUM 112 MCG TABLET PO (06:09)
--- NOTE | 2024-08-12 06:26 | WPDURCON ---
Assessment and Plan Assessment and plan (1) Left ureteral stone: Code(s): N20.1 - Calculus of ureter Status: Acute Assessment and Plan: Cystoscopy, left ureteroscopy with stone extraction, possible laser lithotripsy, retrograde pyelogram and stent placement Urology Consult Note HPI Date Seen: 08/12/24 Requesting Physician: Gallo Ernst MD Primary Care Provider: Eddie Funez, MD Consult Narrative Narrative: Flor Gallego is a 63 year old female without prior significant urological history well history of urolithiasis presents to the ED with acute left flank pain, nausea vomiting. She denies fevers chills or gross hematuria. Imaging demonstrates a 6 x 9 mm left mid ureteral calculus. Urine does not appear infected she has no significant acute kidney injury. Review of Systems Review of Systems: All systems reviewed & are unremarkable except as noted in HPI and below Psychiatric: Comments: Recent impulsive suicide attempt [facility] Past Medical History Medical History (Updated 08/12/24 @ 06:27 by Yeyo Wild MD) Major depressive disorder, recurrent severe without psychotic features LPRD (laryngopharyngeal reflux disease) Vasomotor rhinitis Gallbladder disorder RLS (restless legs syndrome) Heart murmur History of tobacco abuse Quit 2008 Obstructive sleep apnea Resolved after weight loss surgery with a 240 lb weight loss most recent polysomnogram 2021 Osteoporosis Arthritis of shoulder region, right Subacromial impingement of right shoulder Hair loss Psoriasis Wears glasses Hearing loss Chronic headaches Ectopic kidney Spondylosis of lumbar spine Ocular migraine Vitamin D deficiency Female stress incontinence Osteoarthritis of knees, bilateral Hot thyroid nodule Tea's thyroiditis Depression Fibromyalgia Hyperlipidemia DDD (degenerative disc disease) Hypertension Asthma Venous reflux Surgical History Surgical History H/O thyroidectomy (05/29/22) History of tubal ligation History of ear, nose, and throat (ENT) surgery (~2013) sinus cautery History of hysterectomy, supracervical (07/25/10) History of endometrial ablation (01/04/10) hscope novasure ablation History of dilation and curettage (12/07/09) hscope d&c/polypectomy x3 others History of right hip replacement (01/03/21) History of sleeve gastrectomy (06/23/20) 240 lb weight loss History of foot surgery Hammer Toe 2002 History of fusion of cervical spine History of cholecystectomy History of knee surgery PCL reconstruction 01/12/15 Dr. Sommer H/O colonoscopy with polypectomy 03/24/02 Family History Family History Father Acute myocardial infarction Myocardial infarction Hypertension Grandparent Diabetes mellitus Carcinoma of colon Mother Lung cancer COPD (chronic obstructive pulmonary disease) Sibling Lung cancer Other Family history of cardiovascular disease Social History Social History Social History: Patient lives in [place] with her . She used to smoke up to 3 packs of cigarettes per day but quit smoking 2008. She denies history of heavy alcohol use. She does smoke marijuana daily. She reports that she has been disabled for 20 or 30 years. Code status: Full code Surrogate decision maker: Smoking packs per day: 3 Smoking cigarettes per day: 60.0 Years smoked: 37 Smoking pack-years: 111.00 Smoking status: Former smoker Tobacco type: cigarettes Smoking end date: 06/22/08 Additional smoking assessment comments: 2-3 packs a day Alcohol intake: former Substance use: current Substance use type: marijuana Other substance usage details: medical marijuana Last use: daily Do You Feel Safe in your Home?: Yes Lack of Transportation: No Lack of Food: Never True Current Housing: I Have Housing Concerned About Future Housing: No Difficulty Paying Gas/Electric Bills: No Difficulty Paying for Meds: No Currently Unemployed: No Education: Trade/Vocational Certificate Difficulty w/ Childcare or Family Care: No Living arrangements: other Additional living arrangements comments: Occupation/Education: unemployed Additional occupation/education comments: disabled Gender identity (if verbalized by the patient): Female Sexual Orientation (if Verbalized by the Patient): Straight or Heterosexual Spiritual care concerns: No Meds Home Medications and Allergies Home Medications ?Medication ?Instructions ?Recorded ?Confirmed ?Type calcium citrate 200 mg PO DAILY 09/26/20 08/12/24 History hydrocodone 10 mg-acetaminophen 1 tablet PO Q4-6H PRN pain (scale 02/12/21 08/12/24 Rx 325 mg tablet score 7-10) #180 tabs cyclobenzaprine 10 mg tablet 10 mg PO .qd 09/07/21 08/12/24 History duloxetine 60 mg capsule,delayed 60 mg PO DAILY #90 caps 09/07/21 08/12/24 Rx release spironolactone 25 mg tablet 25 mg PO DAILY 07/08/22 08/12/24 History rosuvastatin 20 mg tablet 20 mg PO DAILY 11/04/22 08/12/24 History tiotropium bromide 18 mcg capsule 1 cap inhalation DAILY 11/03/23 08/12/24 History with inhalation device (Spiriva with HandiHaler) ropinirole 1 mg tablet See Rx Instructions .Route 04/30/24 08/12/24 Rx .COMPLEX #100 tabs ropinirole 3 mg tablet See Rx Instructions .Route 04/30/24 08/12/24 Rx .COMPLEX #100 tabs albuterol 90 mcg-budesonide 80 2 inh inhalation Q6H PRN shortness 08/01/24 08/12/24 History mcg/actuation HFA aerosol inhaler of breath (Airsupra) estradiol 0.01% (0.1 mg/gram) 1 g vaginal 3XW PRN hormones 08/01/24 08/12/24 History vaginal cream gabapentin 100 mg capsule 100 mg PO BID 08/01/24 08/12/24 History potassium chloride 20 mEq 20 meq PO DAILY 08/01/24 08/12/24 History tablet,extended release(part/cryst) famotidine 20 mg tablet 20 mg PO DAILY #30 tabs 08/10/24 08/12/24 Rx ondansetron 4 mg disintegrating 4 mg PO Q8H PRN nausea and 08/10/24 08/12/24 Rx tablet vomiting #10 tabs pantoprazole 40 mg tablet,delayed 40 mg PO HS 4 weeks #28 tabs 08/10/24 08/12/24 Rx release (Protonix) levothyroxine 112 mcg tablet 112 mcg PO DAILY 08/12/24 08/12/24 History Allergies Allergy/AdvReac Type Severity Reaction Status Date / Time poison sumac extract Allergy Severe Rash Verified 05/08/24 13:12 adhesive tape AdvReac Mild Rash Verified 05/08/24 13:12 bacitracin (From Neosporin AdvReac Mild Rash Verified 05/08/24 13:12 ([id number])) neomycin (From Neosporin AdvReac Mild Rash Verified 05/08/24 13:12 ([id number])) polymyxin B (From Neosporin AdvReac Mild Rash Verified 05/08/24 13:12 ([id number])) Vital Signs Vital Signs - 24 hr 08/11/24 17:25 08/11/24 23:28 08/11/24 23:31 Temperature 97.9 F Pulse Rate 77 89 89 Respiratory Rate 16 16 16 Blood Pressure 170/90 H 136/86 136/86 Pulse Oximetry 100 96 96 Oxygen Delivery 08/11/24 23:55 08/12/24 00:56 08/12/24 03:37 Temperature 97.9 F 98.3 F Pulse Rate 74 86 Respiratory Rate 18 17 Blood Pressure 172/91 H 146/67 H Pulse Oximetry 100 97 Oxygen Delivery Room Air Exam Const: General: no acute distress Resp: Effort & Inspection: normal respiratory effort GI: Inspection: non-distended GI Palp: No abdominal tenderness and No Guarding due to palpation present (GI) Auscultation: normal bowel sounds Results Labs 08/12/24 04:31 08/12/24 04:31 Labs: Short CBC 08/11/24 08/12/24 Range/Units 20:47 04:31 WBC 10.6 H 9.7 (4.5-10.0) K/mm3 Hgb 15.4 H 13.7 (12.0-15.0) g/dL Hct 47.6 H 43.2 (37.0-47.0) % Plt Count 189 184 (150-375) k/mm3 BMP 08/11/24 08/12/24 20:46 04:31 Sodium 137 137 Potassium 3.1 L 3.7 Chloride 101 106 Carbon Dioxide 24 26 BUN 13 D 11 Creatinine 1.19 H 1.16 H Glucose 149 H 129 H Calcium 9.1 8.2 L Liver Function 08/11/24 08/12/24 Range/Units 20:46 04:31 Total Bilirubin 1.0 0.7 (0.2-1.3) mg/dL AST 45 H 36 (14-36) U/L ALT 53 H 40 H (6-35) U/L Alkaline Phosphatase 159 H 126 (38-126) U/L Albumin 4.4 3.6 (3.5-5.1) g/dL Urine 08/11/24 Range/Units 21:11 Urine Color Yellow (Yellow) Urine Appearance Clear (Clear) Urine pH 6.5 (5.0-9.0) Ur Specific [place] 1.018 (1.001-1.035) Urine Protein 1+ H (Negative) mg/dL Urine Glucose (UA) Negative (Negative) mg/dL
[2024-08-12] MEDS: ONDANSETRON INJ 4 MG/2 ML VIAL IV PUSH ×2 (08:25→11:20)
[2024-08-12] MEDS: DULoxetine HCL 60 MG CAPSULE.DR PO (08:25)
[2024-08-12] MEDS: GABAPENTIN 100 MG CAPSULE PO (08:27)
[2024-08-12] MEDS: rOPINIRole HCL 1 MG TABLET PO (08:27)
--- NOTE | 2024-08-12 10:52 | P.HP_ITS ---
H&P: HPI History of Present Illness Date/Time: 08/12/24 10:52 Review of Systems Review of Systems: All systems reviewed & are unremarkable except as noted in HPI and below PMFSH Past Medical History Medical History (Updated 08/12/24 @ 06:27 by Yeyo Wild MD) Major depressive disorder, recurrent severe without psychotic features LPRD (laryngopharyngeal reflux disease) Vasomotor rhinitis Gallbladder disorder RLS (restless legs syndrome) Heart murmur History of tobacco abuse Quit 2008 Obstructive sleep apnea Resolved after weight loss surgery with a 240 lb weight loss most recent polysomnogram 2021 Osteoporosis Arthritis of shoulder region, right Subacromial impingement of right shoulder Hair loss Psoriasis Wears glasses Hearing loss Chronic headaches Ectopic kidney Spondylosis of lumbar spine Ocular migraine Vitamin D deficiency Female stress incontinence Osteoarthritis of knees, bilateral Hot thyroid nodule Tea's thyroiditis Depression Fibromyalgia Hyperlipidemia DDD (degenerative disc disease) Hypertension Asthma Venous reflux Surgical History Surgical History H/O thyroidectomy (05/29/22) History of tubal ligation History of ear, nose, and throat (ENT) surgery (~2013) sinus cautery History of hysterectomy, supracervical (07/25/10) History of endometrial ablation (01/04/10) hscope novasure ablation History of dilation and curettage (12/07/09) hscope d&c/polypectomy x3 others History of right hip replacement (01/03/21) History of sleeve gastrectomy (06/23/20) 240 lb weight loss History of foot surgery Hammer Toe 2002 History of fusion of cervical spine History of cholecystectomy History of knee surgery PCL reconstruction 01/12/15 Dr. Sommer H/O colonoscopy with polypectomy 03/24/02 Family History Family History Father Acute myocardial infarction Myocardial infarction Hypertension Grandparent Diabetes mellitus Carcinoma of colon Mother Lung cancer COPD (chronic obstructive pulmonary disease) Sibling Lung cancer Other Family history of cardiovascular disease Social History Social History Social History: Patient lives in [place] with her . She used to smoke up to 3 packs of cigarettes per day but quit smoking 2008. She denies history of heavy alcohol use. She does smoke marijuana daily. She reports that she has been disabled for 20 or 30 years. Code status: Full code Surrogate decision maker: Smoking packs per day: 3 Smoking cigarettes per day: 60.0 Years smoked: 37 Smoking pack-years: 111.00 Smoking status: Former smoker Tobacco type: cigarettes Smoking end date: 06/22/08 Additional smoking assessment comments: 2-3 packs a day Alcohol intake: former Substance use: current Substance use type: marijuana Other substance usage details: medical marijuana Last use: daily Do You Feel Safe in your Home?: Yes Lack of Transportation: No Lack of Food: Never True Current Housing: I Have Housing Concerned About Future Housing: No Difficulty Paying Gas/Electric Bills: No Difficulty Paying for Meds: No Currently Unemployed: No Education: Trade/Vocational Certificate Difficulty w/ Childcare or Family Care: No Living arrangements: other Additional living arrangements comments: Occupation/Education: unemployed Additional occupation/education comments: disabled Gender identity (if verbalized by the patient): Female Sexual Orientation (if Verbalized by the Patient): Straight or Heterosexual Spiritual care concerns: No Meds Home Medications and Allergies Home Medications ?Medication ?Instructions ?Recorded ?Confirmed ?Type calcium citrate 200 mg PO DAILY 09/26/20 08/12/24 History hydrocodone 10 mg-acetaminophen 1 tablet PO Q4-6H PRN pain (scale 02/12/21 08/12/24 Rx 325 mg tablet score 7-10) #180 tabs cyclobenzaprine 10 mg tablet 10 mg PO .qd 09/07/21 08/12/24 History duloxetine 60 mg capsule,delayed 60 mg PO DAILY #90 caps 09/07/21 08/12/24 Rx release spironolactone 25 mg tablet 25 mg PO DAILY 07/08/22 08/12/24 History rosuvastatin 20 mg tablet 20 mg PO DAILY 11/04/22 08/12/24 History tiotropium bromide 18 mcg capsule 1 cap inhalation DAILY 11/03/23 08/12/24 History with inhalation device (Spiriva with HandiHaler) ropinirole 1 mg tablet See Rx Instructions .Route 04/30/24 08/12/24 Rx .COMPLEX #100 tabs ropinirole 3 mg tablet See Rx Instructions .Route 04/30/24 08/12/24 Rx .COMPLEX #100 tabs albuterol 90 mcg-budesonide 80 2 inh inhalation Q6H PRN shortness 08/01/24 08/12/24 History mcg/actuation HFA aerosol inhaler of breath (Airsupra) estradiol 0.01% (0.1 mg/gram) 1 g vaginal 3XW PRN hormones 08/01/24 08/12/24 History vaginal cream gabapentin 100 mg capsule 100 mg PO BID 08/01/24 08/12/24 History potassium chloride 20 mEq 20 meq PO DAILY 08/01/24 08/12/24 History tablet,extended release(part/cryst) famotidine 20 mg tablet 20 mg PO DAILY #30 tabs 08/10/24 08/12/24 Rx ondansetron 4 mg disintegrating 4 mg PO Q8H PRN nausea and 08/10/24 08/12/24 Rx tablet vomiting #10 tabs pantoprazole 40 mg tablet,delayed 40 mg PO HS 4 weeks #28 tabs 08/10/24 08/12/24 Rx release (Protonix) levothyroxine 112 mcg tablet 112 mcg PO DAILY 08/12/24 08/12/24 History Allergies Allergy/AdvReac Type Severity Reaction Status Date / Time poison sumac extract Allergy Severe Rash Verified 05/08/24 13:12 adhesive tape AdvReac Mild Rash Verified 05/08/24 13:12 bacitracin (From Neosporin AdvReac Mild Rash Verified 05/08/24 13:12 ([id number])) neomycin (From Neosporin AdvReac Mild Rash Verified 05/08/24 13:12 ([id number])) polymyxin B (From Neosporin AdvReac Mild Rash Verified 05/08/24 13:12 ([id number])) Vital Signs Vital Signs - 24 hr 08/11/24 17:25 08/11/24 23:28 08/11/24 23:31 Temperature 97.9 F Pulse Rate 77 89 89 Respiratory Rate 16 16 16 Blood Pressure 170/90 H 136/86 136/86 Pulse Oximetry 100 96 96 Oxygen Delivery 08/11/24 23:55 08/12/24 00:56 08/12/24 03:37 Temperature 97.9 F 98.3 F Pulse Rate 74 86 Respiratory Rate 18 17 Blood Pressure 172/91 H 146/67 H Pulse Oximetry 100 97 Oxygen Delivery Room Air 08/12/24 08:00 08/12/24 08:27 Temperature 97.6 F Pulse Rate 74 74 Respiratory Rate 18 18 Blood Pressure 161/80 H Pulse Oximetry 98 98 Oxygen Delivery Room Air H&P: Results Labs Labs: Short CBC 08/11/24 08/12/24 Range/Units 20:47 04:31 WBC 10.6 H 9.7 (4.5-10.0) K/mm3 Hgb 15.4 H 13.7 (12.0-15.0) g/dL Hct 47.6 H 43.2 (37.0-47.0) % Plt Count 189 184 (150-375) k/mm3 BMP 08/11/24 08/12/24 20:46 04:31 Sodium 137 137 Potassium 3.1 L 3.7 Chloride 101 106 Carbon Dioxide 24 26 BUN 13 D 11 Creatinine 1.19 H 1.16 H Glucose 149 H 129 H Calcium 9.1 8.2 L Liver Function 08/11/24 08/12/24 Range/Units 20:46 04:31 Total Bilirubin 1.0 0.7 (0.2-1.3) mg/dL AST 45 H 36 (14-36) U/L ALT 53 H 40 H (6-35) U/L Alkaline Phosphatase 159 H 126 (38-126) U/L Albumin 4.4 3.6 (3.5-5.1) g/dL Urine 08/11/24 Range/Units 21:11 Urine Color Yellow (Yellow) Urine Appearance Clear (Clear) Urine pH 6.5 (5.0-9.0) Ur Specific [place] 1.018 (1.001-1.035) Urine Protein 1+ H (Negative) mg/dL Urine Glucose (UA) Negative (Negative) mg/dL
--- NOTE | 2024-08-12 11:02 | WPDANESEPPF ---
Anes - Initial Pre Proc Eval Procedure: Operation Date: 08/12/24 14:00 Proposed Procedures p Cystoscopy, Left Ureteroscopy, Possible Left Retrograde Pyelogram, Possible Left Ureteral Stent Placement, Possible Holmium Laser Lithotripsy, Stone Extraction - Yeyo Wild MD Date/Time: 08/12/24 11:02 Surgeon: Gallo Ernst MD Pre Op Diagnosis: Ureterolithiasis Patient Data Age: 63 Gender: F Height: 1.63 m Weight: 67.5 kg Last Vital Signs Temp 36.4 C 08/12/24 08:00 Pulse 74 08/12/24 08:27 Resp 18 08/12/24 08:27 BP 161/80 H 08/12/24 08:00 Pulse Ox 98 08/12/24 08:27 O2 Del Method Room Air 08/12/24 08:27 Allergies Allergy/AdvReac Type Severity Reaction Status Date / Time poison sumac extract Allergy Severe Rash Verified 05/08/24 13:12 adhesive tape AdvReac Mild Rash Verified 05/08/24 13:12 bacitracin (From Neosporin AdvReac Mild Rash Verified 05/08/24 13:12 ([id number])) neomycin (From Neosporin AdvReac Mild Rash Verified 05/08/24 13:12 ([id number])) polymyxin B (From Neosporin AdvReac Mild Rash Verified 05/08/24 13:12 ([id number])) Home Medications ?Medication ?Instructions ?Recorded ?Confirmed ?Type calcium citrate 200 mg PO DAILY 09/26/20 08/12/24 History hydrocodone 10 mg-acetaminophen 1 tablet PO Q4-6H PRN pain (scale 02/12/21 08/12/24 Rx 325 mg tablet score 7-10) #180 tabs cyclobenzaprine 10 mg tablet 10 mg PO .qd 09/07/21 08/12/24 History duloxetine 60 mg capsule,delayed 60 mg PO DAILY #90 caps 09/07/21 08/12/24 Rx release spironolactone 25 mg tablet 25 mg PO DAILY 07/08/22 08/12/24 History rosuvastatin 20 mg tablet 20 mg PO DAILY 11/04/22 08/12/24 History tiotropium bromide 18 mcg capsule 1 cap inhalation DAILY 11/03/23 08/12/24 History with inhalation device (Spiriva with HandiHaler) ropinirole 1 mg tablet See Rx Instructions .Route 04/30/24 08/12/24 Rx .COMPLEX #100 tabs ropinirole 3 mg tablet See Rx Instructions .Route 04/30/24 08/12/24 Rx .COMPLEX #100 tabs albuterol 90 mcg-budesonide 80 2 inh inhalation Q6H PRN shortness 08/01/24 08/12/24 History mcg/actuation HFA aerosol inhaler of breath (Airsupra) estradiol 0.01% (0.1 mg/gram) 1 g vaginal 3XW PRN hormones 08/01/24 08/12/24 History vaginal cream gabapentin 100 mg capsule 100 mg PO BID 08/01/24 08/12/24 History potassium chloride 20 mEq 20 meq PO DAILY 08/01/24 08/12/24 History tablet,extended release(part/cryst) famotidine 20 mg tablet 20 mg PO DAILY #30 tabs 08/10/24 08/12/24 Rx ondansetron 4 mg disintegrating 4 mg PO Q8H PRN nausea and 08/10/24 08/12/24 Rx tablet vomiting #10 tabs pantoprazole 40 mg tablet,delayed 40 mg PO HS 4 weeks #28 tabs 08/10/24 08/12/24 Rx release (Protonix) levothyroxine 112 mcg tablet 112 mcg PO DAILY 08/12/24 08/12/24 History Laboratory Tests 08/11/24 08/11/24 08/11/24 20:46 20:47 21:11 WBC 10.6 H K/mm3 (4.5-10.0) RBC 5.17 M/mm3 (4.2-5.4) Hgb 15.4 H g/dL (12.0-15.0) Hct 47.6 H % (37.0-47.0) MCV 92.1 fl (80-100) MCH 29.8 pg (26-34) MCHC 32.4 g/dl (32-36) RDW 12.2 % (11.5-14.5) Plt Count 189 k/mm3 (150-375) MPV 10.1 fl (7.4-10.4) Immature Gran % (Auto) 0.2 % (0-0.5) Neut % (Auto) 91.2 H % (45.5-73.1) Lymph % (Auto) 4.2 L % (18.3-44.2) [place] % (Auto) 4.1 % (2.6-8.5) Eos % (Auto) 0.0 % (0-4.4) Baso % (Auto) 0.3 % (0.2-1.2) Lymph # (Auto) 0.45 L K/mm3 (0.9-3.2) [place] # (Auto) 0.4 K/mm3 (0.1-0.6) Eos # (Auto) 0.0 K/mm3 (0-0.3) Baso # (Auto) 0.0 K/mm3 (0.0-0.1) Abs Immat Gran (auto) 0.02 K/mm3 (0.00-0.031) Absolute Neuts (auto) 9.7 H K/mm3 (1.3-6.7) Absolute Nucleated RBC 0.000 K/mm3 (0.0-0.012) Nucleated RBC % 0.0 % (0.0-0.2) Sodium 137 mmol/L (137-145) Potassium 3.1 L mmol/L (3.4-5.0) Chloride 101 mmol/L (98-107) Carbon Dioxide 24 mmol/L (22-30) Anion Gap 12 mmol/L (4-12) BUN 13 D mg/dL (7-17) Creatinine 1.19 H mg/dL (0.7-1.0) Estim Creat Clear Calc 38 ml/min Estimated GFR 46 L (59 - ) Glucose 149 H mg/dL (65-110) Calcium 9.1 mg/dL (8.4-10.2) Magnesium 2.0 mg/dL (1.6-2.3) Total Bilirubin 1.0 mg/dL (0.2-1.3) AST 45 H U/L (14-36) ALT 53 H U/L (6-35) Alkaline Phosphatase 159 H U/L (38-126) Total Protein 8.0 g/dL (6.3-8.2) Albumin 4.4 g/dL (3.5-5.1) Lipase 52 U/L (23-300) Urine Color Yellow (Yellow) Urine Appearance Clear (Clear) Urine pH 6.5 (5.0-9.0) Ur Specific [place] 1.018 (1.001-1.035) Urine Protein 1+ H mg/dL (Negative) Urine Glucose (UA) Negative mg/dL (Negative) Urine Ketones 2+ H mg/dL (Negative) Ur Blood (Man) 1+ H (Negative) Urine Nitrate Negative (Negative) Urine Bilirubin Negative (Negative) Urine Urobilinogen 1.0 mg/dL (<2.0) Add Ur Microanalysis Reviewed Leukocyte Esterase Rfl 1+ H FABIOLA/UL (Negative) Urine RBC 11-20 H /hpf (0-2) Urine WBC 0-5 /hpf (0-3) Ur Squamous Epith Cells None seen /hpf (Few) Urine Bacteria None seen /hpf Urine Casts 0-2 08/12/24 08/12/24 01:34 04:31 WBC 9.7 K/mm3 (4.5-10.0) RBC 4.64 M/mm3 (4.2-5.4) Hgb 13.7 g/dL (12.0-15.0) Hct 43.2 % (37.0-47.0) MCV 93.1 fl (80-100) MCH 29.5 pg (26-34) MCHC 31.7 L g/dl (32-36) RDW 12.4 % (11.5-14.5) Plt Count 184 k/mm3 (150-375) MPV 10.7 H fl (7.4-10.4) Immature Gran % (Auto) 0.5 % (0-0.5) Neut % (Auto) 79.0 H % (45.5-73.1) Lymph % (Auto) 11.0 L % (18.3-44.2) [place] % (Auto) 9.2 H % (2.6-8.5) Eos % (Auto) 0.0 % (0-4.4) Baso % (Auto) 0.3 % (0.2-1.2) Lymph # (Auto) 1.06 K/mm3 (0.9-3.2) [place] # (Auto) 0.9 H K/mm3 (0.1-0.6) Eos # (Auto) 0.0 K/mm3 (0-0.3) Baso # (Auto) 0.0 K/mm3 (0.0-0.1) Abs Immat Gran (auto) 0.05 H K/mm3 (0.00-0.031) Absolute Neuts (auto) 7.6 H K/mm3 (1.3-6.7) Absolute Nucleated RBC 0.000 K/mm3 (0.0-0.012) Nucleated RBC % 0.0 % (0.0-0.2) Sodium 137 mmol/L (137-145) Potassium 3.7 mmol/L (3.4-5.0) Chloride 106 mmol/L (98-107) Carbon Dioxide 26 mmol/L (22-30) Anion Gap 5 mmol/L (4-12) BUN 11 mg/dL (7-17) Creatinine 1.16 H mg/dL (0.7-1.0) Estim Creat Clear Calc 39 ml/min Estimated GFR 47 L (59 - ) Glucose 129 H mg/dL (65-110) Calcium 8.2 L mg/dL (8.4-10.2) Magnesium 1.8 mg/dL 2.3 mg/dL (1.6-2.3) (1.6-2.3) Total Bilirubin 0.7 mg/dL (0.2-1.3) AST 36 U/L (14-36) ALT 40 H U/L (6-35) Alkaline Phosphatase 126 U/L (38-126) Total Protein 6.0 L g/dL (6.3-8.2) Albumin 3.6 g/dL (3.5-5.1) Lipase Urine Color Urine Appearance Urine pH Ur Specific [place] Urine Protein Urine Glucose (UA) Urine Ketones Ur Blood (Man) Urine Nitrate Urine Bilirubin Urine Urobilinogen Add Ur Microanalysis Leukocyte Esterase Rfl Urine RBC Urine WBC Ur Squamous Epith Cells Urine Bacteria Urine Casts Patient hx anesthesia problems: none Family hx anesthesia problems: none Results Review: All pre-operative results and documents have been reviewed as part of the pre-operative evaluation. [facility] Past Medical History Medical History (Updated 08/12/24 @ 11:03 by Steve Fulton DO) History of suicide attempt COPD (chronic obstructive pulmonary disease) Major depressive disorder, recurrent severe without psychotic features LPRD (laryngopharyngeal reflux disease) Vasomotor rhinitis Gallbladder disorder RLS (restless legs syndrome) Heart murmur History of tobacco abuse Quit 2008 Obstructive sleep apnea Resolved after weight loss surgery with a 240 lb weight loss most recent polysomnogram 2021 Osteoporosis Arthritis of shoulder region, right Subacromial impingement of right shoulder Hair loss Psoriasis Wears glasses Hearing loss Chronic headaches Ectopic kidney Spondylosis of lumbar spine Ocular migraine Vitamin D deficiency Female stress incontinence Osteoarthritis of knees, bilateral Hot thyroid nodule Tea's thyroiditis Depression Fibromyalgia Hyperlipidemia DDD (degenerative disc disease) Hypertension Asthma Venous reflux Surgical History Surgical History H/O thyroidectomy (05/29/22) History of tubal ligation History of ear, nose, and throat (ENT) surgery (~2013) sinus cautery History of hysterectomy, supracervical (07/25/10) History of endometrial ablation (01/04/10) hscope novasure ablation History of dilation and curettage (12/07/09) hscope d&c/polypectomy x3 others History of right hip replacement (01/03/21) History of sleeve gastrectomy (06/23/20) 240 lb weight loss History of foot surgery Hammer Toe 2003 History of fusion of cervical spine History of cholecystectomy History of knee surgery PCL reconstruction 01/12/15 Dr. Sommer H/O colonoscopy with polypectomy 03/24/02 Family History Family History Father Acute myocardial infarction Myocardial infarction Hypertension Grandparent Diabetes mellitus Carcinoma of colon Mother Lung cancer COPD (chronic obstructive pulmonary disease) Sibling Lung cancer Other Family history of cardiovascular disease Social History Social History Social History: Patient lives in [place] with her . She used to smoke up to 3 packs of cigarettes per day but quit smoking 2008. She denies history of heavy alcohol use. She does smoke marijuana daily. She reports that she has been disabled for 20 or 30 years. Code status: Full code Surrogate decision maker: Smoking packs per day: 3 Smoking cigarettes per day: 60.0 Years smoked: 37 Smoking pack-years: 111.00 Smoking status: Former smoker Tobacco type: cigarettes Smoking end date: 06/22/08 Additional smoking assessment comments: 2-3 packs a day Alcohol intake: former Substance use: current Substance use type: marijuana Other substance usage details: medical marijuana Last use: daily Do You Feel Safe in your Home?: Yes Lack of Transportation: No Lack of Food: Never True Current Housing: I Have Housing Concerned About Future Housing: No Difficulty Paying Gas/Electric Bills: No Difficulty Paying for Meds: No Currently Unemployed: No Education: Trade/Vocational Certificate Difficulty w/ Childcare or Family Care: No Living arrangements: other Additional living arrangements comments: Occupation/Education: unemployed Additional occupation/education comments: disabled Gender identity (if verbalized by the patient): Female Sexual Orientation (if Verbalized by the Patient): Straight or Heterosexual Spiritual care concerns: No Anes - Eval Final PreProcedure Day of Procedure 08/12/24 11:02 Patient weight: overweight Heart: regular rate and rhythm Lungs: clear to auscultation Airway: Mallampati scale class II Neurological: alert and oriented Last oral intake: >/= 8 hours ASA classification: III Emergent: no Anesthetic plan: proceed Anesthesia type and monitoring: general ETT and standard monitoring Other findings: n/v today Results Review: All pre-operative results and documents have been reviewed as part of the pre-operative evaluation. Informed Consent: The patient's anesthetic plan and its attendant risks and benefits were discussed with the patient/family/POA. Questions were solicited and answers provided to the satisfaction of the patient/family/POA.
[2024-08-12] MEDS: LACTATED RINGERS 1,000 ML 30 ML IV CONT (11:10)
[2024-08-12] MEDS: fentaNYL CITRATE INJ (*CRX) 100 MCG/2 ML VIAL 25 MCG IV PUSH (11:20)
[2024-08-12] MEDS: ceFAZolin 2 GM/D5W 50 ML 2 GM/50 ML BAG IVPB (11:28)
--- NOTE | 2024-08-12 12:41 | P.OP_ITS ---
Procedure Note - Detailed Date of Procedure 08/12/24 Pre-op Diagnosis Left ureteral stone Post-op Diagnosis Same Procedure Performed Cystoscopy, left ureteroscopy with laser lithotripsy, stone extraction, retrograde pyelogram and stent placement Surgeon Yeyo Wild MD Anesthesia General Description of Procedure Patient is brought to the operative suite where she has prepped draped in routine sterile fashion while in dorsal lithotomy position after the uneventful induction of a general LMA anesthetic. Cystoscopy was undertaken with a 19 F rigid cystoscope. Bladder neck and urethra endoscopically normal. Bladder mucosa is normal. There is no intravesical foreign body or neoplasm. 0.035 in glidewire was advanced into her left renal pelvis. Distal ureter was dilated with an 8 F 10 F dilator and a 2nd guidewire was placed for safety. An 11/13 F ureteral access sheath this placed and ureteroscopy was undertaken with 7.5 F flexible ureteral scope per mid ureteral stone is washed into a mid-pole calyx with irrigation. Using a 242 micron ecoInsight laser fiber it is dusted. For pieces measuring approximately 2 mm were removed. There were no other residual pieces greater than 2 mm. Retrograde pyelogram was used to confirm no extravasation and appropriate placement 4.8 F variable length stent. Urine Output 300 Drains Yes Packing No Pathology Yes Complications No immediate complications
[2024-08-12] MEDS: UMECLIDINIUM BROMIDE 62.5 MCG ELLIPTA 1 PUFF INHALATION (13:41)
[2024-08-12] MEDS: HYDROcodone/acetaminophen (*CRX) 5-325 MG TABLET 1 TAB PO (14:32)
--- NOTE | 2024-08-12 14:53 | P.SS_ITS ---
Same Day Admit/Disch: HPI History of Present Illness Chief complaint: Ureterolithiasis Narrative: Flor Gallego is a 63 year old female came to the hospital with nausea, vomiting, and diarrhea. Patient denies chest pain, palpitations, dizziness, or shortness of breath. Patient reports pain in her left back is a 7 , constant, and sharp. Patient reports a migraine headache in the back of her head that is a 6 , constant, and pounding. Patient reports that this is the first time she has had a kidney stone. Denies suicidal ideation. Patient reports that she is supposed to have phone visit with [place] today. ER work up: WBC 10.6, Potassium 3.1, Creatinine 1.19, AST 45, ALT 53, Alkaline phosphatase 159. CT abdomen showed: IMPRESSION: Hepatic steatosis. 6 x 13 mm calcification in the proximal left ureter causing mild obstructive uropathy. Moderate esophagitis/gastritis. At least 3 small bowel intussusceptions are noted, typically these findings are incidental. Colonic and distal small bowel findings may be related to infectious, inflammatory, or ischemic colitis/enteritis. [facility] Past Medical History Medical History History of suicide attempt COPD (chronic obstructive pulmonary disease) Major depressive disorder, recurrent severe without psychotic features LPRD (laryngopharyngeal reflux disease) Vasomotor rhinitis Gallbladder disorder RLS (restless legs syndrome) Heart murmur History of tobacco abuse Quit 2008 Obstructive sleep apnea Resolved after weight loss surgery with a 240 lb weight loss most recent polysomnogram 2021 Osteoporosis Arthritis of shoulder region, right Subacromial impingement of right shoulder Hair loss Psoriasis Wears glasses Hearing loss Chronic headaches Ectopic kidney Spondylosis of lumbar spine Ocular migraine Vitamin D deficiency Female stress incontinence Osteoarthritis of knees, bilateral Hot thyroid nodule Tea's thyroiditis Depression Fibromyalgia Hyperlipidemia DDD (degenerative disc disease) Hypertension Asthma Venous reflux Surgical History Surgical History H/O thyroidectomy (05/29/22) History of tubal ligation History of ear, nose, and throat (ENT) surgery (~2013) sinus cautery History of hysterectomy, supracervical (07/25/10) History of endometrial ablation (01/04/10) hscope novasure ablation History of dilation and curettage (12/07/09) hscope d&c/polypectomy x3 others History of right hip replacement (01/03/21) History of sleeve gastrectomy (06/23/20) 240 lb weight loss History of foot surgery Hammer Toe 2002 History of fusion of cervical spine History of cholecystectomy History of knee surgery PCL reconstruction 01/12/15 Dr. Sommer H/O colonoscopy with polypectomy 03/24/02 Family History Family History Father Acute myocardial infarction Myocardial infarction Hypertension Grandparent Diabetes mellitus Carcinoma of colon Mother Lung cancer COPD (chronic obstructive pulmonary disease) Sibling Lung cancer Other Family history of cardiovascular disease Social History Social History Social History: Patient lives in [place] with her . She used to smoke up to 3 packs of cigarettes per day but quit smoking 2008. She denies history of heavy alcohol use. She does smoke marijuana daily. She reports that she has been disabled for 20 or 30 years. Code status: Full code Surrogate decision maker: Smoking packs per day: 3 Smoking cigarettes per day: 60.0 Years smoked: 37 Smoking pack-years: 111.00 Smoking status: Former smoker Tobacco type: cigarettes Smoking end date: 06/22/08 Additional smoking assessment comments: 2-3 packs a day Alcohol intake: former Substance use: current Substance use type: marijuana Other substance usage details: medical marijuana Last use: daily Do You Feel Safe in your Home?: Yes Lack of Transportation: No Lack of Food: Never True Current Housing: I Have Housing Concerned About Future Housing: No Difficulty Paying Gas/Electric Bills: No Difficulty Paying for Meds: No Currently Unemployed: No Education: Trade/Vocational Certificate Difficulty w/ Childcare or Family Care: No Living arrangements: other Additional living arrangements comments: Occupation/Education: unemployed Additional occupation/education comments: disabled Gender identity (if verbalized by the patient): Female Sexual Orientation (if Verbalized by the Patient): Straight or Heterosexual Spiritual care concerns: No Same Day Admit/Disch: Med Pre-admit Medications Home Medications ?Medication ?Instructions ?Recorded ?Confirmed ?Type calcium citrate 200 mg PO DAILY 09/26/20 08/12/24 History hydrocodone 10 mg-acetaminophen 1 tablet PO Q4-6H PRN pain (scale 02/12/21 08/12/24 Rx 325 mg tablet score 7-10) #180 tabs cyclobenzaprine 10 mg tablet 10 mg PO .qd 09/07/21 08/12/24 History duloxetine 60 mg capsule,delayed 60 mg PO DAILY #90 caps 09/07/21 08/12/24 Rx release spironolactone 25 mg tablet 25 mg PO DAILY 07/08/22 08/12/24 History rosuvastatin 20 mg tablet 20 mg PO DAILY 11/04/22 08/12/24 History tiotropium bromide 18 mcg capsule 1 cap inhalation DAILY 11/03/23 08/12/24 History with inhalation device (Spiriva with HandiHaler) ropinirole 1 mg tablet See Rx Instructions .Route 04/30/24 08/12/24 Rx .COMPLEX #100 tabs ropinirole 3 mg tablet See Rx Instructions .Route 04/30/24 08/12/24 Rx .COMPLEX #100 tabs albuterol 90 mcg-budesonide 80 2 inh inhalation Q6H PRN shortness 08/01/24 08/12/24 History mcg/actuation HFA aerosol inhaler of breath (Airsupra) estradiol 0.01% (0.1 mg/gram) 1 g vaginal 3XW PRN hormones 08/01/24 08/12/24 History vaginal cream gabapentin 100 mg capsule 100 mg PO BID 08/01/24 08/12/24 History potassium chloride 20 mEq 20 meq PO DAILY 08/01/24 08/12/24 History tablet,extended release(part/cryst) famotidine 20 mg tablet 20 mg PO DAILY #30 tabs 08/10/24 08/12/24 Rx ondansetron 4 mg disintegrating 4 mg PO Q8H PRN nausea and 08/10/24 08/12/24 Rx tablet vomiting #10 tabs pantoprazole 40 mg tablet,delayed 40 mg PO HS 4 weeks #28 tabs 08/10/24 08/12/24 Rx release (Protonix) levothyroxine 112 mcg tablet 112 mcg PO DAILY 08/12/24 08/12/24 History Review of Systems Review of Systems All systems reviewed & are unremarkable except as noted in HPI and below Exam Const: General: no acute distress and uncomfortable Eyes: Sclera: sclerae normal Pupils: Equal, round and reactive pupils present Resp: Effort & Inspection: normal respiratory effort Auscultation: clear to auscultation bilaterally Cardio: Rate: regular rate Rhythm: regular rhythm GI: GI Palp: Yes Soft to palpation Auscultation: normal bowel sounds Neuro: Speech: normal speech Extrem: General: no pedal edema Psych: Mental Status: mental status grossly normal Affect: normal affect DS: Data Data Completed and Pending Pending studies at discharge: Pending at discharge 08/12/24 12:11 Surgical [PTH] Routine Labs on day of discharge: Labs from last 24 hours 08/12/24 08/12/24 08/11/24 04:31 01:34 21:11 WBC 9.7 RBC 4.64 Hgb 13.7 Hct 43.2 MCV 93.1 MCH 29.5 MCHC 31.7 L RDW 12.4 Plt Count 184 MPV 10.7 H Immature Gran % (Auto) 0.5 Neut % (Auto) 79.0 H Lymph % (Auto) 11.0 L [place] % (Auto) 9.2 H Eos % (Auto) 0.0 Baso % (Auto) 0.3 Lymph # (Auto) 1.06 [place] # (Auto) 0.9 H Eos # (Auto) 0.0 Baso # (Auto) 0.0 Abs Immat Gran (auto) 0.05 H Absolute Neuts (auto) 7.6 H Absolute Nucleated RBC 0.000 Nucleated RBC % 0.0 Sodium 137 Potassium 3.7 Chloride 106 Carbon Dioxide 26 Anion Gap 5 BUN 11 Creatinine 1.16 H Estim Creat Clear Calc 39 Estimated GFR 47 L Glucose 129 H Calcium 8.2 L Magnesium 2.3 1.8 Total Bilirubin 0.7 AST 36 ALT 40 H Alkaline Phosphatase 126 Total Protein 6.0 L Albumin 3.6 Lipase Urine Color Yellow Urine Appearance Clear Urine pH 6.5 Ur Specific [place] 1.018 Urine Protein 1+ H Urine Glucose (UA) Negative Urine Ketones 2+ H Ur Blood (Man) 1+ H Urine Nitrate Negative Urine Bilirubin Negative Urine Urobilinogen 1.0 Add Ur Microanalysis Reviewed Leukocyte Esterase Rfl 1+ H Urine RBC 11-20 H Urine WBC 0-5 Ur Squamous Epith Cells None seen Urine Bacteria None seen Urine Casts 0-2 08/11/24 08/11/24 20:47 20:46 WBC 10.6 H RBC 5.17 Hgb 15.4 H Hct 47.6 H MCV 92.1 MCH 29.8 MCHC 32.4 RDW 12.2 Plt Count 189 MPV 10.1 Immature Gran % (Auto) 0.2 Neut % (Auto) 91.2 H Lymph % (Auto) 4.2 L [place] % (Auto) 4.1 Eos % (Auto) 0.0 Baso % (Auto) 0.3 Lymph # (Auto) 0.45 L [place] # (Auto) 0.4 Eos # (Auto) 0.0 Baso # (Auto) 0.0 Abs Immat Gran (auto) 0.02 Absolute Neuts (auto) 9.7 H Absolute Nucleated RBC 0.000 Nucleated RBC % 0.0 Sodium 137 Potassium 3.1 L Chloride 101 Carbon Dioxide 24 Anion Gap 12 BUN 13 D Creatinine 1.19 H Estim Creat Clear Calc 38 Estimated GFR 46 L Glucose 149 H Calcium 9.1 Magnesium 2.0 Total Bilirubin 1.0 AST 45 H ALT 53 H Alkaline Phosphatase 159 H Total Protein 8.0 Albumin 4.4 Lipase 52 Urine Color Urine Appearance Urine pH Ur Specific [place] Urine Protein Urine Glucose (UA) Urine Ketones Ur Blood (Man) Urine Nitrate Urine Bilirubin Urine Urobilinogen Add Ur Microanalysis Leukocyte Esterase Rfl Urine RBC Urine WBC Ur Squamous Epith Cells Urine Bacteria Urine Casts DS: Summary Hospital Course Hospital Course: Flor Gallego is a 63 year old female came to the hospital with nausea, vomiting, and diarrhea. Patient denies chest pain, palpitations, dizziness, or shortness of breath. Patient reports pain in her left back is a 7 , constant, and sharp. Patient reports a migraine headache in the back of her head that is a 6 , constant, and pounding. Patient reports that this is the first time she has had a kidney stone. ER work up: WBC 10.6, Potassium 3.1, Creatinine 1.19, AST 45, ALT 53, Alkaline phosphatase 159. CT abdomen showed: IMPRESSION: Hepatic steatosis. 6 x 13 mm calcification in the proximal left ureter causing mild obstructive uropathy. Moderate esophagitis/gastritis. At least 3 small bowel intussusceptions are noted, typically these findings are incidental. Colonic and distal small bowel findings may be related to infectious, inflammatory, or ischemic colitis/enteritis. Urology consulted. Cystoscopy, left ureteroscopy with laser lithotripsy, stone extraction, retrograde pyelogram and stent placement. Patient to follow up in 1- 2 weeks for stent removal. Potassium improved to 3.7, Creatinine 1.16, AST 36, ALT 40, and alkaline phosphatase 126. Status at Discharge Functional status at discharge: independent ambulation Overall status at discharge: patient is progressing back to baseline Time Spent with Patient Time attestation: Total time spent providing and/or coordinating discharge services: Time spent: Greater than 30 minutes DS: Admitting Diagnosis Discharge Date 08/12/2024 Admitting Diagnosis nausea, vomiting, diarrhea DS: Discharge Diagnosis Discharge Diagnosis (1) Left ureteral stone: Code(s): N20.1 - Calculus of ureter Status: Acute (2) Acute kidney injury: Code(s): N17.9 - Acute kidney failure, unspecified Status: Acute (3) Elevated liver enzymes: Code(s): R74.8 - Abnormal levels of other serum enzymes Status: Acute (4) Hypokalemia: Code(s): E87.6 - Hypokalemia Status: Acute Discharge Plan Discharge Attending physician on discharge: Dakota Eastman Consulting providers: Alban Gibson Discharging Clinician: Princess Martinez Anticipated Discharge Date/Time: 08/12/24 15:30 Patient Disposition: Home Activity: may shower and as tolerated Diet: regular Discharge Instructions: * Call Dr. Wild office to set up an appointment in 1-2 weeks for stent removal. * Report to provider if you pain does not continue to improve, temperature >101, nausea, or vomiting. * Drink water to hydrate and flush kidneys. * Strain your urine. Thank you for entrusting [facility] with your healthcare! Patient Instructions: Antibiotic Form, Kidney Stones (DC) Patient Language: Maori Stand Alone Forms: General Discharge Information Follow-up/Referrals: Funez,MD Eddie [Primary Care Provider] - 1 Week Yeyo Wild MD [Physician] - 1 Week Discharge Medications: Continued spironolactone 25 mg tablet 25 mg PO DAILY cyclobenzaprine 10 mg tablet 10 mg PO .qd duloxetine 60 mg capsule,delayed release(DR/EC) 60 mg PO DAILY Qty: 90 1RF tiotropium bromide [Spiriva with HandiHaler] 18 mcg capsule, w/inhalation device 1 cap inhalation DAILY Rx Instructions: puncture 1 cap using device; one dose = 2 inhalations calcium citrate 200 mg (950 mg) tablet 200 mg PO DAILY rosuvastatin 20 mg tablet 20 mg PO DAILY Airsupra 90-80 mcg/actuation HFA aerosol inhaler 2 inh INHALATION Q6H PRN (Reason: shortness of breath) Rx Instructions: 1-2 puffs by mouth q6h PRN gabapentin 100 mg capsule 100 mg PO BID Rx Instructions: TAKE 1 CAPSULE BY MOUTH BID potassium chloride 20 mEq tablet,ER particles/crystals 20 meq PO DAILY Rx Instructions: 20 mEq orally 1 tablet p.o. b.i.d. for 3 days and then 1 tablet p.o. q.day; estradiol 0.01 % (0.1 mg/gram) cream 1 g vaginal 3XW PRN (Reason: hormones) famotidine 20 mg tablet 20 mg PO DAILY Qty: 30 0RF ondansetron 4 mg tablet,disintegrating 4 mg PO Q8H PRN (Reason: nausea and vomiting) Qty: 10 0RF pantoprazole [Protonix] 40 mg tablet,delayed release (DR/EC) 40 mg PO HS 28 Days Qty: 28 0RF levothyroxine 112 mcg tablet 112 mcg PO DAILY hydrocodone-acetaminophen 10-325 mg tablet 1 tablet PO Q4-6H PRN (Reason: pain (scale score 7-10)) Qty: 180 0RF Rx Instructions: To last 30 days, due 02/12/2021 ropinirole 1 mg tablet See Rx Instructions .ROUTE .COMPLEX Qty: 100 1RF Dose Instruction: TAKE 1 TABLET BY MOUTH DAILY Rx Instructions: TAKE 1 TABLET BY MOUTH DAILY ropinirole 3 mg tablet See Rx Instructions .ROUTE .COMPLEX Qty: 100 1RF Dose Instruction: TAKE 1 TABLET BY MOUTH 1 TO 2 HOURS BEFORE BEDTIME Rx Instructions: TAKE 1 TABLET BY MOUTH 1 TO 2 HOURS BEFORE BEDTIME Date of admission: 08/11/24 22:55 Primary Care Provider: Dee DeeEddie Admitting Provider: Gallo Ernst Attending physician on admission: Gallo Ernst Condition: Improved Quality VTE Prophylaxis VTE prophylaxis: mechanical ordered Hospitalist MIPS Advance Care Plan I have confirmed that the patient's Advanced Care Plan is present, code status is documented, or surrogate decision maker is listed in patient medical record.: Yes Medication Reconciliation I have utilized all available resources to obtain, update and review the patients current medications (includes all prescriptions, OTC, herbals, cannabis, and nutritional supplements).: Yes Heart Failure (Exclusion) Patient has history of Heart Transplant or Left Ventricular Assistive Device?: No IF YES, STOP HERE Heart Failure (Qualifier) Patient has current or prior documentation of LVEF less than or equal to 40%, or mod/servere depressed LVSF?: No IF NO, STOP HERE
--- NOTE | 2024-08-13 09:19 | WPDHPUPDATE1 ---
History and Physical Update Update Date/Time: 08/13/24 09:19 History and Physical has been reviewed, including an updated exam of the patient. There are NO changes in the patient's condition. Risks, benefits, and alternatives have been discussed and questions answered. Patient agrees to proceed with procedure.
== END 2024-08-12 15:51 | disposition home or self-care (01) ==
LOC: ANHED 21:07 → ANH2MED 08-12 00:02
PROVIDERS: Nurse Practitioner; Urology; Admitting Provider General Practice; Emergency Provider Physician Assistant; PCP Hospitalist; Visit Provider Family Medicine
PROC: (CPT 52352; principal; 2024-08-12 14:00)
DX: N20.1 Calculus of ureter (principal); N17.9 Acute kidney failure, unspecified; R74.8 Abnormal levels of other serum enzymes; E87.6 Hypokalemia; I10 Essential (primary) hypertension; E89.0 Postprocedural hypothyroidism; G43.909 Migraine, unspecified, not intractable, without status migrainosus; J44.9 Chronic obstructive pulmonary disease, unspecified; M81.0 Age-related osteoporosis without current pathological fracture; Z87.891 Personal history of nicotine dependence; Z79.51 Long term (current) use of inhaled steroids; Z79.899 Other long term (current) drug therapy; Z90.49 Acquired absence of other specified parts of digestive tract; Z90.711 Acquired absence of uterus with remaining cervical stump; Z98.1 Arthrodesis status; Z98.890 Other specified postprocedural states; Z98.84 Bariatric surgery status
CPT/HCPCS: 52356; 36415; 74018; 74420; 80053; 81001; 82365; 83690; 83735; 85025; 87086; 88300; 94640; 96361; 96365; 96374; 96375; 99285; A9270; C1769; C1894; C2617; G0378; J0330; J0690; J1100; J1171; J2270; J2371; J2405; J2704; J3010; J3475; J3480; J7030; J7040; J7120; Q9966

== ENCOUNTER 2025-03-09 08:30 | Outpatient (CLI) | payer MEDICARE, MEDICAID, SELFPAY ==
--- NOTE | ~2025-03-09 | CT_ITS ---
EXAMINATION: CT lung screening DATE: 03/09/2025 09:02 INDICATION: Z87.891 - Personal history of nicotine dependence TECHNIQUE: Computed tomography (CT) of the chest was performed without intravenous contrast. Additional 3D reconstructions utilizing coronal maximum intensity projection (MIP) were performed. Automated exposure control and iterative reconstruction technique were employed. The dose-length product was 73 .86 mGy-cm. COMPARISON: 03/09/2024 FINDINGS: No interval change in a few scattered <3 mm bilateral pulmonary nodules. No new or enlarging pulmonary nodules identified. No pneumonia, pulmonary edema or pleural effusion. Heart size is normal. No pericardial effusion. Aortic valve calcification. Thoracic aorta is normal in caliber. No pathologically enlarged abdominal or pelvic lymphadenopathy. Postoperative change of prior sleeve gastrectomy with suture line along the greater curvature of the stomach. Additional suture line near the gastric pylorus suggesting gastric bypass. Cholecystectomy clips the gallbladder fossa. 6 mm nonobstructing left renal stone. Mild thoracic spondylosis. 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 IMPRESSION: 1. . Lung-RADS category 2: Benign appearance or behavior. Continue annual screening with noncontrast low-dose chest CT in 12 months. 2. Nonobstructing left nephrolithiasis. Reviewed, dictated and finalized at location A. ER LICENSE TECHNICIAN IMPRESSION: 1. . Lung-RADS category 2: Benign appearance or behavior. Continue annual scree mau with noncontrast low-dose chest CT in 12 months. 2. Nonobstructing left nephrolithiasis.
--- OUTSIDE RECORDS SUMMARY | 2025-03-09 08:59 | XMS_ITS | Encounter Summary ---
Author Organization [facility] Address 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
--- OUTSIDE RECORDS SUMMARY | 2025-03-09 08:59 | XMS_ITS | Clinical Summary ---
Author Organization [facility] Address [address] [place] [address] Phone Care Team Providers Care Director Of Surgery Name Role Phone Mary Diaz MD Primary Care Provider [phone] Allergies Active Allergy Reactions Criticality Noted Date [...] Information Patient not taking.Reported on 09/23/2023 Tiotropium [place] Monohydrate (SPIRIVA HANDIHALER IN) take by inhalation [...] Sex Assigned at Female 05/07/2023 5:26 AM SOCCER COACH Legal Sex Female 12:08 AM CDT Gender Identity Female 05/07/2023 5:26 AM SOCCER COACH Sexual Orientation Straight 05/07/2023 5: 26 AM SOCCER COACH 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 Not on file Not [...] 10:59 AM CDT Height 162.6 cm (5' 4) 10/09/2023 10:59 AM CDT Body Mass Index 27.81 10/09/2023 10:59 AM CDT Plan of Treatment Health Maintenance Due Date Last Done Comments Hepatitis C Virus (HCV) Screening 1960 Mammogram 1961 Cologuard 2006 Immunochemical Fecal Occult Blood 2006 Medicare Initial AWV [id number] 04/24/2023 Influenza Immunization (#1) 11/22/202404/25, 05/01/2022, 01/24/2021, Additional history exists SARS-COV-2 Immunization ( season) 2024 05/13/2023, 05/01/2022, 03/30/2021, Additional history exists Colonoscopy 09/18/2026 09/18/2016 Colorectal Cancer Screening 09/18/2026 Zoster Immunization Completed 03/30/2021, Lung Cancer Screening Discontinued 09/03/2022 DTaP/Tdap/Td Immunization Discontinued 05/13/2023, Pneumococcal Immunization (50+ years) Completed 05/13/2023 Pneumococcal Immunization Combined Discontinued 05/13/2023 Respiratory Syncytial Virus (RSV) Immunization (Adult) Completed 05/13/2023 TdaP Immunization Completed 05/13/2023, 01/11/2020 Hepatitis B Immunization Aged Out No longer eligible based on patient's age to complete this topic Human Papillomavirus (HPV) Immunization (No Doses Required) Completed Meningococcal Immunization (ACWY) Aged Out No longer eligible based on patient's age to complete this topic Rotavirus Immunization Aged Out No lo nger eligible based on patient's age to complete this topic Medical Devices Implanted Type Area Tissue Recovery Technician Device Identifier Shelf Expiration Date Model / Serial / Lot Tissue Placental Matrix Flowable Viaflow 2.0cc - [id number] Implanted:Qty: 1 on 10/09/2023 by Yamilex Beyer DPM at [facility] IMPLANT Left: Ankle [employer] 04/17/2028 AMAF-0020 / AMAF-0020 / [id number] 2.5 Headles Screw Size 20 Implanted:Qty: 2 on 11/19/2022 by Yamilex Beyer DPM at [facility] Left: Foot AR-8725-20 H / AR-8725-20 H / AR-8725-20 H Explanted Type Area Tissue Recovery Technician Device Identifier Shelf Expiration Date Model / Serial / Lot 2.5 Headless Screw Size 12 Implanted:Qty: 2 on 11/19/2022 by Yamilex Beyer DPM at [facility] Explanted:Qty: 2 on 05/22/2023 by Yamilex Beyer DPM at [facility] Left: Foot ARTHREX AR-8725-12H / AR-8725-12H / AR-8725-12H Insurance MEDICAID [place] MEDICARE C [employer] Care Teams Director Of Surgery Relationship Specialty Start Date End Date Mary Diaz MD [address] [facility] [place] [address] PCP - General Family Medicine 06/30/22
--- OUTSIDE RECORDS SUMMARY | 2025-03-09 08:59 | XMS_ITS | Encounter Summary ---
Author Organization [facility] Address 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
--- OUTSIDE RECORDS SUMMARY | 2025-03-09 08:59 | XMS_ITS | Encounter Summary ---
Author Organization [facility] Address [address] [place] [address] Care Team Providers Care Personal Vehicle Advisor Name Role Phone Malathi Perez MD Primary Care Provider [phone] Encounter Details Date Type Department Care Team (Late st Contact Info) Description 11/21/2003 Outpatient Historical [facility] Primary Care - [address] [place] [address] Cody Rubio MD [address] [facility] [address] [place], [place] [id number] Social History Tobacco Use Types Packs/Day Years Used Date Smoking Tobacco: Never Assessed Comments Unknown Sex and Gender Information Value Date Recorded Sex Assigned at Not on file Legal 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
--- OUTSIDE RECORDS SUMMARY | 2025-03-09 08:59 | XMS_ITS | Encounter Summary ---
Author Organization [facility] Address 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
--- OUTSIDE RECORDS SUMMARY | 2025-03-09 08:59 | XMS_ITS | Encounter Summary ---
Author Organization [facility] Address [address] [place] [address] Care Team Providers Care Roller Skater Name Role Phone Malathi Perez MD Primary Care Provider [phone] Encounter Details Date Type Department Care Team (Late st Contact Info) Description 11/25/2002 Outpatient Historical [facility] ([facility]3] Primary Care - [address] [place] [address] Cody Rubio MD [address] [facility] [place] [facility] [address] [place], [place] [id number] Social History Tobacco Use Types Packs/Day Years Used Date Smoking Tobacco: Never Assessed Comments Unknown Sex and Gender Information Value Date Recorded Sex Assigned at Not on file Legal Sex Female 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
--- OUTSIDE RECORDS SUMMARY | 2025-03-09 08:59 | XMS_ITS | Encounter Summary ---
Author Organization [facility] Address [address] [place] [address] Care Team Providers Care Interior Design Assistant Name Role Phone Malathi Perez MD Primary Care Provider [phone] Encounter Details Date Type Department Care Team (Late st Contact Info) Description 04/27/2003 Outpatient Historical [facility] Primary Care - [address] [place] [address] Cody Rubio MD [address] [facility] [address] [place], [place] [id number] Social History Tobacco Use Types Packs/Day Years Used Date Smoking Tobacco: Never Assessed Comments Unknown Sex and Gender Information Value Date Recorded Sex Assigned at Not on file Legal 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
--- OUTSIDE RECORDS SUMMARY | 2025-03-09 08:59 | XMS_ITS | Clinical Summary ---
Author Organization [facility] Kathrine Mcitnosh Address [address] [place] [address] Care Team Providers Care Director Talent Name Role Phone Malathi Perez MD Primary Care Provider [phone] Allergies No known active allergies Medications MELATONIN [...] 20 Active fluticasone propionate (FLONASE) 50 mcg/spray Frostproof, Suspension nasal inhaler Administer 1 Frostproof in each nostril. 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 Gender Identity Not on file Sexual Orientation [...] 11:42 AM CDT Height 165.1 cm (5' 5) 07/04/2020 11:42 AM CDT Body Mass Index 54.58 07/04/2020 11:42 AM CDT Plan of Treatment Health Maintenance Due Date Last Done Comments HPV/Cotest (21-29) 1982 CERVICAL CANCER SCREENING 09/17/1991 HPV/Cotest (30-65) 09/17/1991 PAP SMEAR 09/17/1991 BREAST CANCER SCREENING 2001 COLORECTAL SCREENING 2006 Colorectal Cancer Screening 2006 FIT-DNA Q 3 years 2006 FIT/FOBT Q 1 year 2006 Flex Sig/CT Colonography Q 5 years 2006 RSV VACCINE (60+ or ) (1 - Risk 50-74 years 1-dose series) 09/17/2011 ZOSTER VACCINE (1 of 2) 09/17/2011 INFLUENZA VACCINE (#1) 2024 01/11/2020, 2019 DTAP/TDAP/TD VACCINES (2 - Td or Tdap) 01/10/2030 Insurance Care Teams Director Talent Relationship Specialty Start Date End Date Malathi Perez MD PCP - General Family Practice 02/25/20
--- OUTSIDE RECORDS SUMMARY | 2025-03-09 08:59 | XMS_ITS | Encounter Summary ---
Author Organization [facility] Address [address] [place] [address] Care Team Providers Care Cash Reconciliation Specialist Name Role Phone Kareem Minerva Phillips MD Unavailable Alfie Vegas MD Unavailable [phone] Toni Cintron MD Unavailable [phone] Brendan Thomas DPM Unavailable [phone] Vivi Wood CNM Unavailable Tahmina Marvin MD Unavailable Cristofer Alicia MD Unavailable Prashanth Lee MD Unavailable Roberto Carlos Fregoso MD Unavailable García Siddiqui DO Unavailable Ana Delarosa MD Unavailable Orion Sommer MD Unavailable Alban Hernandez MD Unavailable Rehana Mckeon MD Unavailable Eddie Funez MD Primary Care Provider [phone] Encounter Details Date Type Department Care Team (Late st Contact Info) Description 01/26/2025 Results Follow-Up [facility] Medical [facility] Diabetes and Endocrinology [address] [place] [id number] Mariam Shah, STACEY [address] [facility] [address] [place] [address] T4, free, TSH Social History Tobacco Use Types Packs/Day Years Used Date Smoking Tobacco: Former Cigarettes 2 38.3 0 03/25/1970 - 07/09/2008 Passive Smoke Exposure: Past Smokeless Tobacco: Never Alcohol Use Standard Drinks/Week Comments No 0 (1 standard drink = 0.6 oz pur e alcohol) AUDIT-C Answer Date Recorded Q1: How often do you have a drink containing alcohol? Never 10/21/2024 Q2: How many drinks containi ng alcohol do you have on a typical day when you are drinking? Patient does not drink Q3: How often do you have si x or more drinks on one occasion? Never 10/21/2024 PHQ-2 Answer Date Recorded PHQ-2 Total Score (If total score is 3 or more points, staff should administer the PHQ-9) 0 01/27/2025 PHQ-9 Answer Date Recorded PHQ-9 Total Score 16 10/07/2024 Personal Safety Answer Date Recorded Have you ever been in or are you currently in a harmful physical or emotional relationship or is someone making you feel afraid or unsafe? 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 Gender Identity Female 02/08/2020 5:48 PM HYDROGEN BRAZE FURNACE OPERATOR Sexual Orientation Straight 02/08/2020 5: 48 PM HYDROGEN BRAZE FURNACE OPERATOR documented as of this encounter Functional Status * BP Location Answer Date of Assessment Author Left arm 01/27/2025 8:55 AM HYDROGEN BRAZE FURNACE OPERATOR Teodora George MA * BP Location Answer Date of Assessment Author Left arm 01/27/2025 8:55 AM HYDROGEN BRAZE FURNACE OPERATOR Teodora George MA documented as of this encounter Miscellaneous Notes * Result Encounter Note - Mariam Shah NP - 01/26/2025 8:53 AM HYDROGEN BRAZE FURNACE OPERATOR Discussed at appt today: Will increase to 112 mcg 6 days/wk & 2 tabs on Friday until refill. Will then move to 125 mcg tab daily. OGEN BRAZE FURNACE OPERATOR documented in this encounter Plan of Treatment Not on file documented as of this encounter Visit Diagnoses Not on filedocumented in this encounter Care Teams Cash Reconciliation Specialist Relationship Specialty Start Date End Date Eddie Funez MD [address] [place] [address] PCP - General Family Medicine 07/01/24 Minerva Serna MD Consulting Physician Gastroenterology 01/28/21 Alfie Vegas MD Consulting Physician Hematology 01/28/21 Toni Cintron MD [address] [place] [address] Consulting Physician Obstetrics and Gynecology 01/28/21 Brendan Thomas DPM [address] [place] [address] Consulting Physician Foot and Ankle Surg 01/28/21 Vivi Wood CNM [address] [place] [address] Nurse Practitioner Psychiatry 04/08/22 Tahmina Marvin MD [address] [facility] [address] [place] [address] Referring Physician Pain Management 04/08/22 Cristofer Alicia MD [address] [place] [address] Referring Physician Neurosurgery 04/08/22 [place] [address] [facility] [address] [place] [address] Consulting Physician Endocrinology Diabetes & Metabolism 04/08/22 [place] [address] [facility] [address] [place] [address] Referring Physician Otolaryngology 04/08/22 García [place] [address] [facility] [address], [place] [address] Referring Physician Surgery 04/08/22 Ana Delarosa MD [address] [place] [address] Consulting Physician Sleep Medicine 04/08/22 [place] [address] [place] [address] Surgeon Orthopedic Surgery 04/08/22 [place] [address] [place] [address] Referring Physician Orthopedic Surgery 04/08/22 [place] [address] [facility] [address] [place] [address] Consulting Physician Cardiology 04/08/22 documented as of this encounter
--- OUTSIDE RECORDS SUMMARY | 2025-03-09 09:00 | XMS_ITS | Clinical Summary ---
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 01/27/2025, , 05/13/2023, Additional history exists Medical Devices Implanted Type Area Pediatric Surgeon Device Identifier Shelf Expiration Date Model / Serial / Lot Ethicon Endo Surgery Tvt Prolene 45x1.1cm Tape Mesh Transvaginal Blue [id number] - [id number] Implanted:Qty: 1 on 05/29/2022 by Aura Driscoll MD at [facility] Mesh N/A: Urethra Ethicon Endo Surgery [id number] 11/21/2024 [id number] / / Wear My Tagscount includes the [facility] [employer] Sls-Clip Ligate Triangular Wire Kathleen Groove Small Chevron Clip Latex Free [id number] - [id number] Implanted:Qty: 2 on 05/20/2022 by Sameer Alan MD at [facility] [employer] [id number] / / Wear My Tagscount includes the [facility] [employer] Sls-Clip Ligate Triangular Wire Kathleen Groove Small Chevron Clip Latex Free K8015-3 - [id number] Implanted:Qty: 2 on 05/20/2022 [email or web address] [id number] / / Procedures Procedure Name Priority Date/Time Associated Diagnosis Comments TSH Routine 01/25/2025 10:28 AM CANDY FEEDER Postoperative hypothyroidism T4, FREE Routine 01/25/2025 10:28 AM CANDY FEEDER Postoperative hypothyroidism SCREENING MAMMOGRAM BILATERAL W CEDRIC Schedule Routine, Read Routine (OP Routine) 09/02/2024 10:03 AM CDT Encounter for screening mammogram for malignant neoplasm of breast HM HEPATITIS C SCREENING Routine 04/06/2023 COLONOSCOPY Routine 09/18/2016 from Last 3 Months or Most Recently Relevant to Health Maintenance Results * TSH (01/25/2025 10:28 AM CANDY FEEDER) TSH 3.900 0.450 - 4.500 uIU/mL [facility] - 01 Blood 01/25/2025 10:2 8 AM CANDY FEEDER 01/25/2025 Narrative [facility] - 01/26/2025 5:08 AM CANDY FEEDER Performed at: [address] [place] [id number] Crime Lab Analyst: Jack Winslow PhD, Phone: [phone] us Mariam Shah NP LAB BLOOD ORDERABLES Armida l Result [facility] - 01 * T4, free (01/25/2025 10:28 AM CANDY FEEDER) T4,Free(Direct) 1.21 0.82 - 1.77 ng/dL [facility] - 01 Blood 01/25/2025 10:2 8 AM CANDY FEEDER 01/25/2025 Narrative [facility] - 01/26/2025 5:08 AM CANDY FEEDER Performed at: [address] [place] [id number] Crime Lab Analyst: Jack Winslow PhD, Phone: [phone] us Mariam Shah SSDS MK 2 ADVANCED OPERATOR LAB BLOOD ORDERABLES Armida l Result [facility] - 01 * Screening Mammogram Bilateral W Cedric (09/02/2024 10:03 AM CDT) Anatomical Region Laterality Modality Breast Bilateral Mammography 09/02/2024 3:36 PM CDT Impressions 09/02/2024 3:36 PM CDT There is no mammographic evidence to suggest malignancy. The patient may continue screening mammography as per ACR guidelines. FINAL ASSESSMENT: BI-RADS Category 1: Negative. Electronically signed by: Renae Muñoz M.D. Narrative 09/02/2024 3:36 PM CDT EXAMINATION: BILATERAL SCREENING MAMMOGRAM WITH TOMOGRAPHY HISTORY: Screening. COMPARISON(S): 2023, 2022, and 2020 TECHNIQUE: Full-field 2D images and digital tomosynthesis images were obtained. CAD was utilized. BREAST PARENCHYMAL COMPOSITION: The breasts are heterogenously dense, which may obscure small masses. FINDINGS: There are no suspicious masses. No suspicious calcifications are seen. There is no unexplained architectural distortion. There is no skin thickening seen. There are no mammographically abnormal lymph nodes seen in the axillae or elsewhere. Eddie Funez MD IMG MAMMO PROCEDURES Armida l Result * HEPATITIS C SCREENING (04/06/2023) SCRIBED HCV ab nonreactive Comment:Patient had checked through GI. She showed me a copy of the results through her [employer] garcia Historical Provider HEALTH MAINTENANCE Final Result * Colonoscopy (09/18/2016) Anatomical Region Laterality Modality Other Narrative 09/18/2016 Polypectomy; repeat in 3 years Historical Provider ENDOSCOPY PROCEDURES Armida l Result from Last 3 Months or Most Recently Relevant to Health Maintenance Insurance UHC MEDICARE ADVANTAGE IDPA [facility] MEDICARE ADVANTAGE [facility] MEDICARE ADVANTAGE IDPA Advance Directives For more information, please contact: [phone] * Full Code (Latest Code Status on File) Date Activated Date Inactivated Comments 05/20/2022 3:24 PM 05/21/2022 2:16 PM * Full Code Date Activated Date Inactivated Comments 02/12/2022 11:40 AM 02/12/2022 6:05 PM Care Teams Balance Wheel Screw Hole Tapper Relationship Specialty Start Date End Date Eddie Funez MD [address] [place] [address] PCP - General Family Medicine 07/01/24 Minerva Serna MD Consulting Physician Gastroenterology 01/28/21 Alfie Vegas MD Consulting Physician Hematology 01/28/21 Toni Cintron MD [address] [place] [address] Consulting Physician Obstetrics and Gynecology 01/28/21 Brendan Thomas DPM [address] [place] [address] Consulting Physician Foot and Ankle Surg 01/28/21 Vivi Wood CNM [address] [place], [place] [id number] Nurse Practitioner Psychiatry 04/08/22 Tahmina Marvin MD [address] [facility] [address] [place] [address] Referring Physician Pain Management 04/08/22 Cristofer Alicia MD [address] [place] [id number] Referring Physician Neurosurgery 04/08/22 [place] [address] [facility] [address], [place] [address] Consulting Physician Endocrinology Diabetes & Metabolism 04/08/22 [place] [address] [facility] [address], [place] [address] Referring Physician Otolaryngology 04/08/22 García [place] [address] [address] Referring Physician Surgery 04/08/22 Ana Delarosa MD [address] [place] [address] Consulting Physician Sleep Medicine 04/08/22 [place] [address] [place] [address] Surgeon Orthopedic Surgery 04/08/22 [place] [address] [facility] [address] [place] [address] Referring Physician Orthopedic Surgery 04/08/22 [place] [address] [facility] [address] [place] [address] Consulting Physician Cardiology 04/08/22
--- OUTSIDE RECORDS SUMMARY | 2025-03-09 09:00 | XMS_ITS | Clinical Summary ---
Author Organization [facility] Address [address] [facility] [place] [address] Care Team Providers Care Music Supervisor Name Role Phone Eddie Funez MD Primary Care Provider [phone] Source Comments [facility],non-owned Affiliates and Associated Physician Practices is amultiple site organization consisting of ambulatory clinics and hospital sitesin [place], [place], [place] and [place]. This disclosure is being madepursuant to the Care Everywhere program and may not contain all information available regarding this patient. Last updated 17.[facility] Allergies Active Allergy Reactions Criticality Noted Date Comments Nftuwhdx-Yjtkvrauoo-Aqvhmff in Rash Medium 05/27/2024 Severity depends on [...] e azelastine (Astelin) 0.1 % nasal spray Active budesonide (Pulmicort) 1 MG/2ML nebulizer suspension [...] times daily 10/31/19 22 Active HYDROcodone-aneta taminophen ([place]) 10-325 MG tablet Take 1 (one) tablet by mouth every 6 hours as needed for Pain Active acetaminophen (Tylenol) 325 MG tablet Take 2 (two) tablets by mouth every 6 hours as needed for Fever or Pain Maximum allowable Acetaminophen amount = 4 Grams (4000 mg) / 24 hours. 0 12/28/19 22 Active Additional Information Patient not taking.Reported on 09/03/2024 sertraline (Zoloft) 25 MG tablet Take 1 (one) tablet by mouth every morning Active rOPINIRole (Requip) 1 MG tablet Take 1 (one) tablet by mouth once daily Activ e albuterol HFA (Proventil; Ventolin; Proair) 108 (90 Base) MCG/ACT inhaler Inhale 2 (two) puffs by mouth every 6 hours as needed Active levothyroxine (Synthroid) 112 MCG tablet Take 1 (one) tablet by mouth daily before breakfast Active Active Problems Problem Noted Date Diagnosed [...] Used Date Smoking Tobacco: Former Cigarettes 1.5 53.5 S tarted: 08/28/1971 Smokeless Tobacco: Never Alcohol Use Standard Drinks/Week Comments Never 0 (1 standard drink = 0.6 oz pur e alcohol) AUDIT-C Answer Date Recorded Q1: How often do you have a drink containing alcohol? Never 09/06/2024 Q2: How many drinks containi ng alcohol do you have on a typical day when you are drinking? Patient does not drink Q3: How often do you have si x or more drinks on one occasion? Never 09/06/2024 Comments No Sex and Gender Information Value Date Recorded Sex Assigned at Female 05/20/2022 6:45 PM DUST BOX WORKER Legal Sex Female 7:40 AM DUST BOX WORKER Gender Identity Female 05/20/2022 6:45 PM DUST BOX WORKER Sexual Orientation Straight 05/20/2022 6: 45 PM DUST BOX WORKER Last Filed Vital Signs Vital Sign Reading Time Taken Comments Blood Pressure 128/94 09/06/2024 3:06 PM CDT Pulse 59 09/06/2024 3:06 PM CDT Temperature 36.2 C (97.1 F) 09/06/2024 3:06 PM CDT Respiratory Rate 17 09/06/2024 3:00 PM CDT Oxygen Saturation 92% 09/06/2024 3:06 PM CDT Inhaled Oxygen Concentration - - Weight 73.9 kg (163 lb) 09/06/2024 10:40 AM CDT Height 162.6 cm (5' 4) 09/06/2024 10:40 AM CDT Body Mass Index 27.98 09/06/2024 10:40 AM CDT Plan of Treatment Health Maintenance Due Date Last Done Comments COLOGUARD (AGES 45-75) - COLON CA SCREENING 1961 CT COLONOGRAPHY - COLON CA SCREENING 1961 FIT - COLON CA SCREENING 1961 FLEX SIG - COLON CA SCREENING 1961 LIPID TESTING 1961 HIV SCREENING 1976 HEPATITIS C SCREENING 09/12/1979 DTAP/TDAP/TD VACCINES (1 - Tdap) 1980 PNEUMOCOCCAL VACCINE 50+ (1 of 2 - PCV) 1980 Respiratory Syncytial Virus (RSV) Vaccine Pt: or over 60 yrs (1 - Risk 50-74 years 1-dose series) 09/17/2011 ZOSTER VACCINE (1 of 2) 09/17/2011 DEPRESSION SCREENING 03/24/2024 MEDICARE AWV CALENDAR YEAR 2024 COVID-19 VACCINE (3 - season) 2024 09/09/2020, 08/19/2020 INFLUENZA VACCINE (#1) 2024 , 05/01/2022, 01/24/2021, Additional history exists MAMMOGRAM 09/02/2026 09/02/2024, 08/22, 06/18/2022 COLON MONITORING 09/18/2026 09/18/2016 COLONOSCOPY - COLON CA SCREENING 09/18/2026 09/18/2016 [...] this topic Medical Devices Implanted Type Area Manager Program Management Device Identifier Shelf Expiration Date Model / Serial / Lot Graft Jacket Now Thick Implanted:Qty: 1 on 05/31/2024 by Zay Peraza DPM at [facility] Left: Foot Insiders@ Project 10/10/2024 [id number] / / [id number] Viaflow Placental Tissue Matrix Implanted:Qty: 1 on 05/31/2024 by Zay Peraza DPM at [facility] Left: Foot [employer] 05/07/2028 [id number] / / 2.5 X 24mm Headless Screw Implanted:Qty: 1 on 09/06/2024 by Zay Peraza DPM at [facility] Right: Foot [employer] [id number] / / Phalinx Cannulated Straight- Small Implanted:Qty: 1 on 09/06/2024 by Zay Peraza DPM at [facility] Right: Foot [employer] [id number] 11/30/2029 [id number] / / [id number] Phalinx Cannulated Straight X-Small Implanted:Qty: 1 on 09/06/2024 by Zay Peraza DPM at [facility] Right: Foot [employer] [id number] 11/15/2029 [id number] / / [id number] Explanted Type Area Manager Program Management Device Identifier Shelf Expiration Date Model / Serial / Lot K-Wire Explanted:Qty: 1 on 09/06/2024 at [facility] Right: Foot [employer] [id number] 05/10/2028 [id number] / / [id number] 25 K Wire Explanted:Qty: 2 on 09/06/2024 at [facility] Right: Foot [employer] [id number] / / [id number] Procedures Procedure Name Priority Date/Time Associated Diagnosis Comments MAMMOGRAM 06/18/2022 from Last 3 Months or Most Recently Relevant to Health Maintenance Results * MAMMOGRAM (06/18/2022) Anatomical Region Laterality Modality Other 06/18/2022 Narrative 06/18/2022 Ordered by an unspecified provider. us Scanned Document SCANNING ONLY Final Result from Last 3 Months or Most Recently Relevant to Health Maintenance Insurance MEDICAID - OUT OF STATE [facility] MANAGED MEDICARE [facility] MEDICARE [facility] MANAGED MEDICARE ADV [place] - [place] [facility] MANAGED MEDICARE ADV SELF PAY NO INSURANCE Member Subscriber Plan / Payer (Ef fective for All Dates) Name:Jean Paul Lozano Member ID:Not on file Relation to Subscriber:Not on file Name:JEAN PAUL LOZANO Subscriber ID:Not on file (Home) Address: [address] [place] [id number] Payer ID:Not on file Group ID:Not on file Type:Self Pay Address: [place], [place] Care Teams Music Supervisor Relationship Specialty Start Date [place] [address] PCP - General Family Medicine 09/06/24
--- OUTSIDE RECORDS SUMMARY | 2025-03-09 09:00 | XMS_ITS | Encounter Summary ---
Author Organization [facility] Address [address] [place] [address] Phone Care Team Providers Care Skills Trainer Name Role Phone Mary Diaz MD Primary Care Provider [phone] Encounter Details Date Type Department Care Team (Latest Contact Info) Description 05/13/2023 Transcribe Orders [facility] Preop[facility]Pac[facility] [address] [place] [address] Yamilex Beyer, DPM [address] [place] [address] Pre-op testing (Primary Dx) Social History Tobacco Use Types Packs/Day Years Used Date Smoking Tobacco: Former Cigarettes 3 37 1 972 - 2009 Smokeless Tobacco: Never Alcohol Use Standard Drinks/Week Comments No 0 (1 standard drink = 0.6 oz pur e alcohol) Comments No Sex and Gender Information Value Date Recorded Sex Assigned at Female 05/07/2023 5:26 AM ELECTRONIC ASSEMBLER Legal Sex Female 12:08 AM CDT Gender Identity Female 05/07/2023 5:26 AM ELECTRONIC ASSEMBLER Sexual Orientation Straight 05/07/2023 5: 26 AM ELECTRONIC ASSEMBLER 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 Not on file Not on file Not on file documented as of this encounter Plan of Treatment Not on file documented as of this encounter Results * (ABNORMAL) BASIC METABOLIC PANEL W/ CALCIUM TOTAL (05/14/2023 1:28 PM [facility]) SODIUM 143 136 - 145 mmol/L 05/14/2023 3:05 PM [facility] POTASSIUM 2.9(L) 3.5 - 5.1 mmol/L 05/14/2023 3:05 PM [facility] CHLORIDE 103 98 - 107 mmol/L 05/14/2023 3:05 PM [facility] CO2, VENOUS 31(H) 22 - 30 mmol/L 05/14/2023 3:05 PM [facility] ANION GAP 11.9 <18.0 mmol/L 05/14/2023 3:05 PM [facility] GLUCOSE 79 70 - 99 mg/dL 05/14/2023 3:05 PM [facility] BUN 11 10 - 20 mg/dL 05/14/2023 3:05 PM [facility] CREATININE, BLOOD 0.61 0.60 - 1.00 mg/dL 05/14/2023 3:05 PM [facility] BUN/CREATININE RATIO 18 12 - 20 ratio 05/14/2023 3:05 PM [facility] CALCIUM 8.6(L) 8.7 - 10.5 mg/dL 05/14/2023 3:05 PM [facility] IS THE PATIENT REQUIRED TO BE FASTING? No 05/14/2023 3:05 PM [facility] GFR, ESTIMATED >60 >=60 05/14/2023 3:05 PM [facility] Comment: Creatinine Clearance is the preferred criteria for selecting drug dose adjustments in renally impaired patients. The GFR is provided as additional pertinent clinical information. GFR is reported in mL/min/1.73 sq m. Calculation based on the Chronic Kidney Disease Epidemiology Collaboration (CKD- EPI) equation refit without adjustment for race. GFR, EST. >60 >=60 024 3:05 PM [facility] GFR, EST. NONAFRICAN >60 >=60 05/14/2023 3:05 PM ELECTRONIC ASSEMBLER [facility] Blood Venipuncture / Unknown 05/14/2023 1:28 PM ELECTRONIC ASSEMBLER 05/14/2023 2:37 PM ELECTRONIC ASSEMBLER us Yamilex Beyer DPM CHEMISTRY ORDERABLES Final R esult [facility] [place] [address] documented in this encounter Visit Diagnoses Diagnosis Pre-op testing- Primary Preoperative examination, unspecified documented in this encounter Care Teams Skills Trainer Relationship Specialty Start Date End Date Mary Diaz MD [address] [place] [address] [place] [address] PCP - General Family Medicine 06/30/22 documented as of this encounter
--- OUTSIDE RECORDS SUMMARY | 2025-03-09 09:00 | XMS_ITS | Data Portability ---
Author Organization [facility], Main Office Address [address] [place] [address] Assessment No assessment recorded. Plan of Treatment Reminders Order Date Submit Date Provider Last Modified By Organization Details Last Modified Time Details Appointments None recorded. Lab ceruloplasm in, serum [address] (Lab), [address] [place], [address], 4 12:03:52 mitochondri al Ab, serum [address] (Lab), [address] [place], [address], 4 12:03:57 smooth muscle Ab, serum [address] (Lab), [address] [place], [address], 4 12:04:02 HBsAg (hepatitis B surface Ag), serum [address] (Lab), [address] [place], [address], 4 12:04:07 hepatitis C RNA, qualitative , serum [address] (Lab), [address] [place], [address], 4 12:04:12 Referral colon & rectal surgeon referral - Please contact patient to schedule 2024 025 [email or web address] Gretchen Hollins MD, [facility] [address], [address], 5 08:01:48 Procedures None recorded. Surgeries None recorded. Imaging None recorded. Medication Orders None recorded. Patient TargetsNo targets recorded. Patient Instructions Encounter Date Encounter Id Patient Instructions Last Modified By Organization Details Last Modified Time 04/09/2023 [id number] PT WITH ELEVATED LIVER ENZYMES . SX ARE MOST LIKELY B/C STATIN MED . CHECK LIVER MARKERS . F/U IN 4 WEEKS . [email or web address] Not available 04/09/2023 16:06:57 07/14/2024 [id number] PT WITH RECTAL PROLAPSE . REFER TO DR HOLLINS. [email or web address] Not available 07/14/2024 13:04:20 Reason for Referral [...] Recorded Time Chronic obstructiv e pulmonary disease 02052654 Active Not Available [facility] 3 07:29:57 Tobacco dependence in remission 120732972 Active Not Available [facility] 3 07:29:57 Asthma 170730072 Active Not Available [facility] 3 07:29:57 Localized, primary osteoarthr itis of the pelvic region and thigh 760148458 Active Not Available [facility] 3 07:29:57 Gastroesop hageal reflux disease 482366828 Active Not Available [facility] 3 07:29:57 History of emphysema 687853268554 12024 Active Not Available [facility] 3 07:29:57 Vaginal discharge 041558533 Active Not Available [facility] 3 07:29:57 Lymphadeno yazan 16847939 Active Not Available [facility] 3 07:29:57 Vaginitis 18917566 Active Not Available [facility] 3 07:29:58 Mild chronic obstructiv e pulmonary disease 016714361 Active Not Available [facility] 3 07:29:58 Bronchitis 19094992 Active Not Available [facility] 3 07:29:58 Depressive disorder 80455307 Active Not Available [facility] 3 07:29:58 Major depressive disorder 723514009 Active Not Available [facility] 3 07:29:58 Hypertensi ve disorder 66501379 Active Not Available [facility] 3 07:29:58 Osteoarthr itis 026053002 Active knee, pelvic and thigh Not Available [facility] 3 07:29:58 Hypokalemi a 96668940 Active Not Available [facility] 3 07:29:58 Hoarse 75895725 Active Not Available [facility] 3 07:29:59 Hyperlipid emia 71846985 Active Not Available [facility] 3 07:29:59 Female urinary stress incontinen ce 72221017 Active Not Available [facility] 3 07:29:59 Degenerati on of interverte bral disc 42374078 Active Not Available [facility] 3 07:29:59 Obstructiv e sleep apnea syndrome 27759409 Active Not Available [facility] 3 07:29:59 Fatigue 08151420 Active Not Available [facility] 3 07:29:59 Primary fibromyalg ia syndrome 33768961 Active Not Available [facility] 3 07:30:00 Polyp of colon 40434007 Active 2016 Not Available [facility] 3 07:29:59 Non-toxic nodular goiter 198926549 Active 2016 Not Available [facility] 3 07:29:57 Subclinica l hyperthyro idism 741053432 Active 2016 Not Available [facility] 3 07:29:58 Thyrotoxic osis 97869683 Active 2016 Not Available [facility] 3 07:29:59 Migraine with aura 9100686 Active 2017 Not Available [facility] 3 07:29:58 Gastroesop hageal reflux disease without esophagiti s 993520739 Active 2021 Not Available [facility] 3 07:29:57 Liver enzymes level above reference range 092633559 Active 2023 Minerva Serna MD [address] [facility], [address], [address] , [employer] [facility] 4 16:01:54 Rectal prolapse 89855177 Active 2024 Minerva Serna MD [address] [facility], [place] [address], [place], [address] , [employer] [facility] 5 13:03:30 Problem Notes None recorded. Procedures Surgical History Date Name Laterality Status Provider Name and Address Organization Details Recorded Time 1 Gastric Bypass completed Not Available [facility] 05/22/2022 07:26:21 Imaging Results None recorded. Procedure Notes None recorded. Medical Equipment None Reported. Allergies Allergen ID Allergen Name Allergen Category Reaction Reaction Severity Criticality Documentation Date Start Date Code Code System Note Provider Name and Address Organization Details Recorded Time 54667 bacitraci n / neomycin / polymyxin B medicatio n itching rash moderate mild Not available 05/22/20222015 93883 9 RxNorm Not Available [facility] 3 07:34:24 64615 lisinopri l medicatio n Not available Not available Not available 05/22/2022 26784 RxNorm error not aller gic per pt Not Available [facility] 3 07:34:25 Medications Name Sig Start [...] mass index (BMI) Body height Oxygen saturation Heart rate Body temperature Body weight Systolic And Diastolic Provider Name and Address Organization Details Last Updated DateTime 3 23.7 kg/m2 162.56 cm 100 % 66 /min 97 [degF] 54160.7 5 g 122/82 mm[Hg] Not Available [facility] 3 07:29:01 Date Recorded Body height Body mass index (BMI) Body weight Heart rate Systolic And Diastolic Provider Name and Address Organization Details Last Updated DateTime 04/09/2023 162.56 cm 23.7 kg/m2 57451.75 g 64 /min 120/80 mm[Hg] MARIA T Kelley [facility] 04/09/2023 15:22:44 Date Recorded Body height Body mass index (BMI) Body weight Heart rate Oxygen saturation Systolic And Diastolic Provider Name and Address Organization Details Last Updated DateTime 5 162.56 cm 26.8 kg/m2 51449.4 1 g 103 /min 98 % 118/72 mm[Hg] Renaldo Penn Aylin [facility] 5 12:14:09 Date Recorded Body mass index (BMI) Body height Oxygen saturation Heart rate Body temperature Body weight Systolic And Diastolic Provider Name and Address Organization Details Last Updated DateTime 2 28.7 kg/m2 162.56 cm 97 % 84 /min 98.3 [degF] 40719.9 3 g 128/82 mm[Hg] Not Available [facility] 3 07:29:01 Social History Question Answer Notes LastModified by [employer] Details LastModified Time Tobacco Smoking Status Never Smoker Mc soler, [facility] 04/09/2023 15:21:54 What Is Your Level Of Caffeine Consumption? None [id number] Information not available 05/22/2022 What Type Of Diet Are You Following? REGULAR [id number] Information not available 05/22/2022 What Was The Date Of Your Most Recent Tobacco Screening? 03/27/2022 Information not available 04/09/2023 What Is Your Relationship Status? [id number] Information not available 05/22/2022 Have You Recently Traveled Abroad? No Information not available 04/09/2023 Sex: Female Functional Status Question Answer Note LastModified by [employer] Details LastModified Time What is your level of alcohol consumption? Occasional [id number] Information not available 05/22/2022 Mental Status None recorded. Family History Relationship Description Onset Age of this Age Resolved Age Notes LastModified by Organization Details LastModified Time Maternal Grandfather Diabetes mellitus [id number] Not available 05/22/2022 07:26:23 Maternal Grandmother Malignant neoplasm of colon [email or web address] Not available 2023 15:21:52 Medical History No medical history recorded. Gynecological HistoryNo gynecological history recorded. Obstetrics History GPAL:G 0 P 0 0 0 0 Immunizations Vaccine Type Date Status Note Provider Nam e and Address Organization Details Recorded Time Tdap 0 completed Not Available [facility] 05/22/2022 07:34:18 Influenza, split virus, quadrivalent, preservative 0 completed Not Available [facility] 05/22/2022 07:34:19 Past Encounters Encounter ID Performer Location Encounter Start Date Encounter Closed Date Diagnosis/Indication Diagnosis SNOMED-CT Code Diagnosis ICD10 Code Diagnosis IMO Codes Diagnosis Note [id number] _ATHN_MIGR ATION_1 _ATHENA_M IGRATION_ DEFAULT_1 _1 , 09/05/2021 00:00:00 09/05/2021 15:10:26 [id number] _ATHN_MIGR ATION_1 _ATHENA_M IGRATION_ DEFAULT_1 _1 , 03/27/2022 00:00:00 03/27/2022 12:19:10 [id number] Minerva Serna MD [facility] General Surgery [address] [place] [phone] 04/09/2023 15:21:03 04/10/2023 10:02:05 Liver enzymes level above reference range 559504232 R74.01 [id number] Minerva Serna MD [facility] General Surgery [address] [place] [phone] 07/14/2024 12:08:06 07/14/2024 12:33:24 Rectal prolapse 46447256 K62.3 Health Concerns Section Related Observation LastModified by Organization Detai ls LastModified Time None Recorded Concern Status LastModified by Organization Details LastModified Time None Recorded Advance Directives Directive None Recorded Payers Insurance Date Sequence Insurance Name Policy Number Policy Reaves Covered Member ID Reaves Member ID Guarantor Name 07/21/2024 1 [facility] (MEDICARE REPLACEMENT/A DVANTAGE - PPO) [id number] Flor aGllego [id number] Flor Gallego 07/11/2024 2 [place] [facility] Flor Gallego [id number] Flor Gallego Notes Date Note Type Note Provider Name and Address Organization Details Recorded Time 04/09/2023 text/html ROS as noted in the HPI NOAH WAS SEEN IN THE OFFICE TODAY [...] . Minerva Serna MD [address], [facility] [address], [place], [address], [facility] 04/09/2023 16:07:25 07/14/2024 text/html ROS as noted in the HPI NOAH WAS SEEN IN THE OFFICE FOR A F/U .PT IS C/O RECTAL PAIN . SHE APPARENTLY HAD A RECTAL PROLAPSE THAT WAS REDUCIBLE . THIS HAPPENED DURING DIARREHA/ SNEEZING . Minerva Serna MD [address], [address], [place], [address], [facility] 07/14/2024 13:04:38 OBGyn Episode No OBEpisode recorded.
--- OUTSIDE RECORDS SUMMARY | 2025-03-09 09:00 | XMS_ITS | Encounter Summary ---
Author Organization [facility] Address [address] [place] [address] Phone Care Team Providers Care Applications Processor Name Role Phone Mary Diaz MD Primary Care Provider [phone] Reason for Referral * Radiology Services (Routine) - Closed Specialty Diagnoses / Procedures Referred By Victor Hugo nobles Referred To Contact Radiology Diagnoses Metatarsalgia Hammertoe of left foot Pre-op testing Procedures EKG 12 LEAD Yamilex Beyer DPM Phone: tel: fax: Referral ID Status Reason Start Date Expiration Date Visits Re quested Visits Authorized [id number] Closed 10/30/2022 1 1 Encounter Details Date Type Department Care Team (Latest Contact Info) Description 10/30/2022 Transcribe Orders [facility] Pre[facility] [address] [place] [address] Yamilex Beyer DPM [address] [place] [address] Metatarsalgia (Primary Dx); Hammertoe of left foot; Pre-op testing Social History Tobacco Use Types Packs/Day Years Used Date Smoking Tobacco: Former Cigarettes 3 37 Smokeless Tobacco: Never Alcohol Use Standard Drinks/Week Comments No 0 (1 standard drink = 0.6 oz pur e alcohol) Comments No Sex and Gender Information Value Date Recorded Sex Assigned at Female 05/07/2023 5:26 AM [employer] Legal Sex Female 12:08 AM CDT Gender Identity Female 05/07/2023 5:26 AM [employer] Sexual Orientation Straight 05/07/2023 5: 26 AM [employer] SUPER[employer] 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 Not on file Not on file [...] QTC CALCULATION 440 ms EXTERNAL EKG P Victoria 2 degrees EXTERNAL EKG R Victoria 79 degrees EXTERNAL EKG T Victoria 75 degrees EXTERNAL EKG 11/11/2022 2:45 PM CDT Impressions EXTERNAL EKG - 11/14/2022 1:12 PM CDT Normal sinus rhythm Normal ECG No previous ECGs available Confirmed by Freddy Beaulieu ([id number]) on 11/14/2022 1:12:12 PM Narrative Procedure Note Freddy Witt MD - 11/14/2022 IMPRESSION: Normal sinus rhythm Normal ECG No previous ECGs available Confirmed by Freddy Beaulieu ([id number]) on 11/14/2022 1:12:12 PM us Yamilex Beyer DPM IMG ECG ORDERABLES Final Res ult EXTERNAL EKG * (ABNORMAL) BASIC METABOLIC PANEL W/ CALCIUM TOTAL (11/11/2022 2:39 PM CDT) SODIUM 145 136 - 145 mmol/L 11/11/2022 5:08 PM CDT [facility] POTASSIUM 2.9(L) 3.5 - 5.1 mmol/L 11/11/2022 5:08 PM CDT [facility] CHLORIDE 103 98 - 107 mmol/L 11/11/2022 5:08 PM CD[address] [facility] CO2, VENOUS 30 22 - 30 mmol/L 11/11/2022 5:08 PM CDT [facility] ANION GAP 14.9 <18.0 mmol/L 11/11/2022 5:08 PM CD[address] [facility] GLUCOSE 77 70 - 99 mg/dL 11/11/2022 5:08 PM CDT [facility] BUN 9(L) 10 - 20 mg/dL 11/11/2022 5:08 PM CD[address] [facility] CREATININE, BLOOD 0.68 0.60 - 1.00 mg/dL 11/11/2022 5:08 PM CD[address] [facility] BUN/CREATININE RATIO 13 12 - 20 ratio 11/11/2022 5:08 PM CD[address] [facility] CALCIUM 9.1 8.7 - 10.5 mg/dL 11/11/2022 5:08 PM CDT [facility] IS THE PATIENT REQUIRED TO BE FASTING? No 11/11/2022 5:08 PM CD[address] [facility] GFR, ESTIMATED >60 >=60 11/11/2022 5:08 PM [address] [facility] Comment: Creatinine Clearance is the preferred criteria for selecting drug dose adjustments in renally impaired patients. The GFR is provided as additional pertinent clinical information. GFR is reported in mL/min/1.73 sq m. Calculation based on the Chronic Kidney Disease Epidemiology Collaboration (CKD- EPI) equation refit without adjustment for race. GFR, EST. >60 >=60 023 5:08 PM [address] [facility] GFR, EST. NONAFRICAN >60 >=60 11/11/2022 5:08 PM [address] [facility] Blood Venipuncture / Unknown 11/11/2022 2:39 PM CDT 11/11/2022 4:38 PM CDT us Yamilex Beyer DPM CHEMISTRY ORDERABLES Final R esult [facility] [address] [facility] [place] [address] documented in this encounter Visit Diagnoses Diagnosis Metatarsalgia- Primary Enthesopathy of ankle and tarsus, unspecified Hammertoe of left foot Pre-op testing Preoperative examination, unspecified Metatarsalgia Enthesopathy of ankle and tarsus, unspecified Hammertoe of left foot Pre-op testing Preoperative examination, unspecified documented in this encounter Care Teams Applications Processor Relationship Specialty Start Date End Date Mary Diaz MD [address] [address] [place] [id number] PCP - General Family Medicine 06/30/22 documented as of this encounter
== END 2025-03-09 08:31 | disposition home or self-care (01) ==
PROVIDERS: PCP Hospitalist; Visit Provider Internal Medicine Critical Care Medicine
DX: Z12.2 Encounter for screening for malignant neoplasm of respiratory organs (principal); Z87.891 Personal history of nicotine dependence; N20.0 Calculus of kidney
CPT/HCPCS: 71271